=== PATIENT | male | born 1955 | race Caucasian/White ===

== ENCOUNTER → 2017-10-15 06:38 | Outpatient (CLI) | payer OTHER, SELFPAY ==
[2017-05-16 09:58] VITALS: BMI 30.9
[2017-10-15 07:34] LABS: AST(SGOT) 25 U/L (15-37); Alanine Aminotransfer ALT/SGPT 34 U/L (16-61); Albumin, Serum 3.4 g/dL (3.2-5.0); Alkaline Phosphatase 67 U/L (45-117); Bilirubin, Direct 0.13 mg/dL (0.00-0.30); Cholesterol 174 mg/dL (200); Globulin 3.8 g/dL (2.2-4.2); High Density Lipoprotein 44 mg/dL; Protein, Total 7.2 g/dL (6.4-8.2); Triglycerides 107 mg/dL; Very Low Density Lipoprotein 21 mg/dL (5-40)
== END ==
PROVIDERS: Family Provider Family Medicine; PCP Family Medicine; Visit Provider Nurse Practitioner Family
DX: E78.5 Hyperlipidemia, unspecified (principal); I10 Essential (primary) hypertension; I25.10 Atherosclerotic heart disease of native coronary artery without angina pectoris; I51.9 Heart disease, unspecified; J44.9 Chronic obstructive pulmonary disease, unspecified; Q21.1 Atrial septal defect; Z95.5 Presence of coronary angioplasty implant and graft
CPT/HCPCS: 36415; 80061; 80076

== ENCOUNTER → 2018-04-14 06:26 | Outpatient (CLI) | payer OTHER, SELFPAY ==
[2017-05-16 09:58] VITALS: BMI 30.9
--- NOTE | 2018-04-14 13:24 | STRESSREP ---
Stress Test Report Date: 2017 Procedure: Pharmacologic stress nuclear imaging study Indications: Shortness of breath/dyspnea on exertion: CAD; PCI Consent: Per the patient Procedure: The patient underwent pharmacologic (Regadenoson) evaluation with a peak heart rate of 85 beats per minute (54 predicted maximal heart rate) and a peak blood pressure of 132/86 mmHg. The baseline ECG demonstrated sinus bradycardia; nonspecific T-wave abnormality. The peak pharmacologic ECG demonstrated continued nonspecific T-wave abnormality. There were occasional PVCs pretest and during recovery. There was no complaint of chest discomfort during pharmacologic infusion or recovery. The examination was discontinued secondary to completion of protocol. Impression: 1. Pharmacologic (Regadenoson) evaluation 2. Peak pharmacologic ECG with continued nonspecific T-wave abnormality. 3. Were occasional PVCs pretest and during recovery 4. Nuclear images pending Myocardial perfusion imaging study: Technique: The patient was injected with 14.6 millicuries of technetium 99m Cardiolite and subsequently rest SPECT Cardiolite nuclear imaging was obtained in the horizontal long, vertical long, and short axis views. The patient underwent pharmacologic (Regadenoson) evaluation with a peak heart rate of 85 beats per minute (54 % percent predicted maximal heart rate) and a peak blood pressure of 132/86 mmHg. The patient was injected with 44.8 millicuries of technetium 99m Cardiolite and subsequently stress SPECT Cardiolite nuclear imaging was obtained in the horizontal long, vertical long, and short axis views. A gated Cardiolite study at peak stress was obtained. Interpretation: Rest and stress SPECT Cardiolite nuclear imaging status post realignment, normalization, and attenuation correction demonstrate relative uniform tracer uptake and myocardial perfusion appearing within normal limits. There is end systolic thickening and brightening. The gated Cardiolite study demonstrates myocardial thickening and inward wall motion. The reported LVEF is 56 %. Impression: 1. Rest and stress SPECT Cardiolite nuclear imaging demonstrate relative uniform tracer uptake and myocardial perfusion appearing within normal limits. 2. The gated Cardiolite study reports an LVEF of 56 %. This note was generated with [employer] software. It may contain incorrect words, spelling, and punctuation that were not noted in checking the note before signing.
== END ==
PROVIDERS: Family Provider Family Medicine; PCP Family Medicine; Visit Provider Internal Medicine Cardiovascular Disease
DX: R06.02 Shortness of breath (principal); Z95.5 Presence of coronary angioplasty implant and graft
CPT/HCPCS: 78452; 93017; A9500; A4216; J2785

== ENCOUNTER → 2018-04-23 09:32 | Outpatient (CLI) | payer OTHER, SELFPAY ==
[2017-05-16 09:58] VITALS: BMI 30.9
== END ==
PROVIDERS: Family Provider Family Medicine; PCP Family Medicine; Visit Provider Nurse Practitioner Acute Care
DX: K21.9 Gastro-esophageal reflux disease without esophagitis (principal)
CPT/HCPCS: 87070; 87077; 87205

== ENCOUNTER → 2018-07-31 06:57 | Outpatient (CLI) | payer OTHER, SELFPAY ==
[2017-05-16 09:58] VITALS: BMI 30.9
--- NOTE | 2018-07-31 15:12 | PFTCOMP_ITS ---
COMPLETE PULMONARY FUNCTION TEST INTERPRETATION Brief HPI: Patient is a 63 year old male, currently under the care of myself, who presents to [facility] for complete pulmonary function tests secondary to diagnosis of asthma. Respiratory therapist reports good effort and reproducible results. Interpretation: Forced expiration spirometry shows a mild large airways obstructive ventilatory defect with an FEV1 of 87% predicted. There is a significant bronchodilator response in FEV1 by strict ATS criteria. Spirograms are of good quality and plateau slowly, indicating slowly emptying areas of the lungs. The respiratory flow volume loop shows decreased expiratory flow rates at high lung volumes consistent with small airways obstruction. Lung volumes by body plethysmography show a decreased total lung capacity at 5.67 L, 78% predicted. All other lung volumes are reduced symmetrically. Diffusion capacity by carbon monoxide is normal at 101% predicted. The airway resistance is normal. Compared to previous pulmonary function tests from 06/03/2017, there has been a significant improvement in FEV1 and DLCO. Impression: Partially reversible mild mixed ventilatory defect with significant improvement compared to previous
--- OUTSIDE RECORDS SUMMARY | 2018-09-15 18:40 | XMS RPT_ITS ---
:1955 Author Organization OHIP Support Name Relationship Address Phone R Unavailable Unavailable Unavailable MARCUS HOWARD Unavailable [address] + [place] [address] R Unavailable Unavailable Unavailable MARCUS HOWARD Unavailable [address] + [place] [address] R Unavailable Unavailable Unavailable MARCUS HOWARD Unavailable [address] + [place] [address] R Unavailable Unavailable Unavailable MARCUS HOWARD Unavailable [address] + [place] [address] R Unavailable Unavailable Unavailable MARCUS HOWARD Unavailable [address] + [place] [address] R Unavailable Unavailable Unavailable MARCUS HOWARD Unavailable [address] + [place] [address] R Unavailable Unavailable Unavailable MARCUS HOWARD Unavailable [address] + [place] [address] R Unavailable Unavailable Unavailable MARCUS HOWARD Unavailable [address] + [place] [address] R Unavailable Unavailable Unavailable MARCUS HOWARD Unavailable [address] + [place] [address] R Unavailable Unavailable Unavailable MARCUS HOWARD Unavailable [address] + [place] [address] R Unavailable Unavailable Unavailable MARCUS HOWARD Unavailable [address] + [place] [address] R Unavailable Unavailable Unavailable MARCUS HOWARD Unavailable [address] + [place] [address] R Unavailable Unavailable Unavailable MARCUS HOWARD Unavailable [address] + [place] [address] R Unavailable Unavailable Unavailable MARCUS HOWARD Unavailable [address] + [place] [address] R Unavailable Unavailable Unavailable MARCUS HOWARD Unavailable [address] [phone] [place] [address] R Unavailable Unavailable Unavailable MARCUS HOWARD Unavailable [address] [phone] [place] [address] R Unavailable Unavailable Unavailable MARCUS HOWARD Unavailable [address] [phone] [place] [address] R Unavailable Unavailable Unavailable MARCUS HOWARD Unavailable [address] [phone] [place] [address] R Unavailable Unavailable Unavailable MARCUS HOWARD Unavailable [address] [phone] [place] [address] Care Team Providers Name Role Phone VILMA SNOW) Attending Unavailable VILMA SNOW) Attending Unavailable VILMA SNOW) Referring Unavailable VILMA SNOW) Attending Unavailable VILMA SNOW) Referring Unavailable OVI BUTCHER) Referring Unavailable OVI BUTCHER) Attending Unavailable VILMA SNOW) Referring Unavailable VILMA SNOW) Referring Unavailable VILMA SNOW) Attending Unavailable VILMA SNOW) Referring Unavailable VILMA SNOW) Referring Unavailable VILMA SNOW) Attending Unavailable YOUSUF JEWELL Referring Unavailable BEST YOUSUF Admitting Unavailable YOUSUF JEWELL Attending Unavailable Stewart Pearl Attending Unavailable Stewart Pearl Referring Unavailable Gisel Zelaya Attending Unavailable Elmo Snow Referring Unavailable Robby Rudd Attending Unavailable Yoan Leal Attending Unavailable Yoan Leal Attending Unavailable Elmo Snow Primary Care Unavailable Kings Snowe Primary Care Unavailable Altagracia Ace Attending Unavailable Stewart Pearl Attending Unavailable Elmo Snow Referring Unavailable Yoan Leal Attending Unavailable Bursley, Elmo Referring Unavailable Bursley, Elmo Primary Care Unavailable Lydia Albarado Attending Unavailable Moodispaw, Marvin Attending Unavailable Bursley, Elmo Referring Unavailable Bursley, Elmo Primary Care Unavailable Moodisnettie, Marvin Attending Unavailable Moodispaarun, Marvin Referring Unavailable Bursley, Elmo Primary Care Unavailable Zelaya, Gisel Attending Unavailable Bursley, Elmo Referring Unavailable Zelaya, Gisel Attending Unavailable Bursley, Elmo Referring Unavailable Zelaya, Gisel Attending Unavailable Zelaya, Gisel Referring Unavailable Bursley, Elmo Primary Care Unavailable Gabe Arenas Attending Unavailable Zelaya, Gisel Referring Unavailable Bursley, Elmo Primary Care Unavailable Moodispaarun, Marvin Attending Unavailable Moodisnettie, Marvin Referring Unavailable Dae, Stewart Attending Unavailable Bursley, Elmo Referring Unavailable Dae, Stewart Attending Unavailable Dae, Stewart Referring Unavailable Bursley, Elmo Primary Care Unavailable Dae, Stewart Attending Unavailable Dae, Stewart Referring Unavailable Bursley, Elmo Primary Care Unavailable PROBLEMS PROBLEMS DATE TYPE CONDITION / CODE ATTENDING STATUS SOURCE 08/07/2018 Unknown J45.909 - Stewart Pearl Active [place] Unspecified asthma, Community uncomplicated / Hospital J45.909(ICD-10) Repository 07/22/2018 Unknown R93.89 - Abnormal Stewart Pearl Active [place] findings on [facility] diagnostic imaging Hospital of other specified Repository body structures / R93.89(ICD-10) 06/22/2018 Active Other microscopic NA Active [facility] hematuria / [place] R31.29(ICD-10) Repository 04/23/2018 Unknown K21.9 - Garcia Active [place] Gastro-esophageal [facility] reflux disease Hospital without esophagitis Repository / K21.9(ICD-10) 05/11/2018 Unknown R06.02 - Shortness Marvin Llanos Active [place] of breath / Community R06.02(ICD-10) Hospital Repository 04/06/2018 Active Encounter for NA Active [facility] screening for [place] malignant neoplasm Repository of colon / Z12.11(ICD-10) 04/06/2018 Unknown Z95.5 - Presence of Marvin Llanos Active [place] coronary Community angioplasty implant Hospital and graft / Repository Z95.5(ICD-10) 05/26/2013 Active Malignant neoplasm NA Active [facility] of prostate / [place] C61(ICD-10) Repository 12/08/2017 Active Other mcfp NA Active [facility] (current) drug [facility] therapy / Repository Z79.899(ICD-10) 09/08/2017 Active Shortness of breath NA Active [facility] / R06.02(ICD-10) Other [place] Repository 09/08/2017 Active Cough / R05(ICD-10) NA Active [facility] Repository PROCEDURES PROCEDURES No Procedure Records FoundRESULTS RESULTS CNOV Observed: 09/02/2018 Status: COMPLETED Source: [place] 10:40 AM [facility] REPOSITORY Office Visit (FAMPWS) MACI HOWARD ([id number]) 1955 M Date Time Provider Department 09/02/18 10:40 AM VILMA SNOW) FAMPWS During your visit today, we recorded the following information about you: Pulse Respiration Blood pressure Weight 60/minute 12/minute 116/84 100.2 kg Vilma Snow MD 09/02/2018 12:03 PM Signed Chief Complaint No chief complaint on file. HPI Maci Howard is a 63 year old male who presents here today for ER follow up. Patient presented to [facility] ED on 09/01 for complaint of 2 hour history of lower chest and upper abdominal pain described as burning sensation over epigastrium. Similar episode 2-3 days before which improved after vomiting. Workup included EKG: sinus bradycardia at 47 bpm with single PVC, normal CXR, CBC with elevated HGB of 17, chem/LFT/lipase normal, normal troponin. Given ASA, morphine, zofran, and pepcid which resolved epigastric pain .repeated 3 hour EKG due to history of CAD and was again negative. Advised to double omeprazole to 40 mg at dinner time and discharged home. Advised to follow up with our office to discuss US of gallbladder. Since discharge, symptoms have resolved. Taking pantoprazole as recommended at 40 mg at dinner. Denies recurrent chest pain, SOB, leg swelling, orthopnea. Has been working on eating healthier diet. Down 20 lbs since last OV. Past medical history, appointments, medications, allergies reviewed. Previous Medical History PAST MEDICAL HISTORY Diagnosis Date - Anxiety - Asthma Childhood. 10/2017 bronchoscopy/biopsy with inflammation, eosinophils. - CAD (coronary artery disease) s/p SHANIQUA to [facility], seeing Dr. Llanos - Depression - Diaphragmatic hernia without mention of obstruction or gangrene - Dyslipidemia - Dysphagia - Dyspnea With wheezing. Spirometry w/o obstruction 02/01 and 06/03. Dr. Jewell 08/2017. Has seen Dr. Pearl - Esophagitis, unspecified - GERD (gastroesophageal reflux disease) - History of CVA (cerebrovascular accident) 06/20/2014 mild - Obesity (BMI 30.0-34.9) - LESLY (obstructive sleep apnea) Consistently compliant with CPAP. - PFO (patent foramen ovale) - Prostate cancer (HCC) 2012 s/p prostatectomy, [place] Previous Surgical History PAST SURGICAL HISTORY Procedure Laterality Date - EGD W/O OR W/BRUSH/WASH 05/01/2007 EGD - EGD W/O OR W/BRUSH/WASH 03/21/2013 [facility] EGD - PAST SURGICAL HISTORY OF submandibular gland removed - PAST SURGICAL HISTORY OF 10/31/14 Robotic Prostatectomy - PAST SURGICAL HISTORY OF 04/2017 SH[facility]QUA to [facility] - PAST SURGICAL HISTORY OF 06/2017 sinus surgery Family History FAMILY HISTORY Problem Relation Age of Onset - Heart Mother CAD. - Hypertension Mother - Cancer Father Prostate cancer. - other (Other) Father Lower lobectomy, not cancerous. - Cancer Paternal Grandfather Prostate Cancer. - other (Other) Other No allergy, asthma, COPD. Patient Allergies ALLERGIES Allergen Reactions - Lourdes Palomo Dsc [* Current Medications Current Outpatient Prescriptions on File Prior to Visit: fluticasone (FLONASE) 50 mcg/actuation nasal spray Use 2 Sprays in each nostril once daily. Rinse mouth after use. budesonide-formoterol (SYMBICORT) 160-4.5 mcg/actuation inhaler Inhale 2 Puffs as instructed twice daily. clopidogrel (PLAVIX) 75 mg tablet TAKE 1 TABLET ONCE DAILY atorvastatin (LIPITOR) 20 mg tablet TAKE [address] (PROTONIX) 20 mg tablet TAKE 1 TABLET DAILY BEFORE BREAKFAST. TAKE ON AN EMPTYSTOMACH, 1/2 HOUR BEFORE A MEAL. losartan (COZAAR) 25 mg tablet Take 0.5 tablets by mouth once daily. montelukast (SINGULAIR) 10 mg tablet Take 1 tablet by mouth daily at bedtime. NITROGLYCERIN SUBLINGUAL Dissolve under the tongue as needed. CPAP atorvastatin (LIPITOR) 20 mg tablet TAKE 1 TABLET DAILY Albuterol Sulfate 0.63 mg/3 mL nebulizer solution Inhale contents of 1 vial in nebulizer every 4 hours as needed for wheezing albuterol HFA (VENTOLIN HFA) 90 mcg/actuation inhaler Inhale 2 Puffs as instructed every 4 hours as needed. metoprolol succinate ER (TOPROL XL) 25 mg 24 hr tablet Take 1 tablet by mouth once daily. (Patient taking differently: Take 25 mg by mouth once daily. Taking 12.5mg daily ) aspirin 81 mg chewable tablet Take 81 mg by mouth once daily. No current facility-administered medications on file prior to visit. 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 Social History Main Topics Smoking status: Former Smoker Packs/day: 1.00 Years: 20.00 Types: Cigarettes Quit date: 08/18/1989 Smokeless tobacco: Former User Types: Snuff Quit date: 01/16/2017 Alcohol use: Yes 4.5 oz/week Cans of Beer (12oz): 3 per week Comment: rare-beer Drug use: No Sexual activity: Yes Partners with: Female control/protection: Vasectomy Social History Narrative [place]. 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 Window A/C. No pets in home. Prior owners had cats. Air purifier in LR. Review of Symptoms REVIEW OF SYSTEMS GENERAL: No weight loss, malaise or fevers RESPIRATORY: Negative for cough, hemoptysis, wheezing, COPD, dyspnea or shortness of breath CARDIOVASCULAR: Negative for chest pain, leg swelling, hypertension, CHF or palpitations GI: No nausea, vomiting, or diarrhea SKIN: Negative for lesions, rash, and itching EXAM: BP 116/84 Pulse 60 Resp 12 Wt 100.2 kg (221 lb) BMI 29.16 kg/m? General Appearance: Well appearing, alert, in no acute distress, well-hydrated, well nourished.. Skin: Skin color, texture, turgor normal, no suspicious rashes or lesions. Lungs: lungs clear to auscultation. No wheezing, rhonchi, rales. Heart: RRR without murmur, gallop, or rubs. No ectopy. Abdomen: Abdomen soft. Bowel sounds normal. No masses, organomegaly, Positive findings: tenderness mild epigastric. Negative murphys sign. Health Maintenance List BP CONTROLLED (<130/80) due on 1972 STATIN MED ADHERENCE due on 09/18/2018 STEROID INHALER PRESCRIBED due on 09/18/2018 STEROID INHALER ADHERENCE due on 09/18/2018 LDL CHOLESTEROL due on 12/08/2018 FECAL OCCULT BLOOD due on 04/06/2019 ANNUAL PCP TEAM CHRONIC DISEASE VISIT due on 06/12/2019 DIABETES SCREEN due on 06/22/2021 LIPID SCREEN due on 12/08/2022 PROSTATE CANCER SCREENING DISCUSSION due on 02/23/2023 DTAP,TDAP,TD(4 - Td) due on 12/11/2027 INFLUENZA Completed HEPATITIS C SCREENING Completed ASSESSMENT/PLAN: 1. Chest pain, unspecified type - ICD9: 786.50, ICD10: R07.9 (primary diagnosis) Negative cardiac workup. Symptoms resolved with PPI treatment. Likely radicular pain from epigastric pain/gastritis. 2. Epigastric pain - ICD9: 789.06, ICD10: R10.13 Improved. Continue pantoprazole 40 mg at night, bland diet, call with recurrent symptoms. 3. Hospital discharge follow-up - ICD9: V67.59, ICD10: Z09 See above. Vilma Snow MD Referring Provider: SELF [[id number]] Allergies As of Date: 09/02/2018 Noted Allergy Reaction PARAFON FORTSolomon DSC (CHLORZOXAZONE) 03/11/2006 Date Reviewed: 09/02/2018 Reviewed by: Peter Armando Ma - Fully Assessed Reason for Visit: Hospital Follow Up [177] Cmt: abdominal pain omeprazole/bid per pt. Reason For Visit History Recorded Primary Visit Diagnosis:Chest pain, unspecified type [R07.9] Other Visit Diagnoses:Epigastric pain [R10.13] Hospital discharge follow-up [Z09] Prescriptions as of 09/02/2018 Sig: BREONESIN ORAL Take by mouth. FLUTICASONE 50 MCG/ACTUATION * Use 2 Sprays in each nostril * BUDESONIDE-FORMOTEROL HFA 160* Inhale 2 Puffs as instructed * CLOPIDOGREL 75 MG TABLET TAKE 1 TABLET ONCE DAILY PANTOPRAZOLE 20 MG TABLET,DEL* TAKE 1 TABLET DAILY BEFORE BR* LOSARTAN 25 MG TABLET Take 0.5 tablets by mouth onc* MONTELUKAST 10 MG TABLET Take 1 tablet by mouth daily * NITROGLYCERIN SUBLINGUAL Dissolve under the tongue as* CPAP ATORVASTATIN 20 MG TABLET TAKE 1 TABLET DAILY ALBUTEROL SULFATE 0.63 MG/3 M* Inhale contents of 1 vial in * ALBUTEROL SULFATE HFA 90 MCG/* Inhale 2 Puffs as instructed * METOPROLOL SUCCINATE ER 25 MG* Take 1 tablet by mouth once d* Patient taking differently: Take 25 mg by mouth once jose maria* ASPIRIN 81 MG CHEWABLE TABLET Take 81 mg by mouth once jose maria* FLUTICASONE 200 MCG-VILANTERO* Breo Ellipta 200 mcg-25 mcg/d* ATORVASTATIN 20 MG TABLET TAKE 1 TABLET DAILY Problem List As Of Date 09/02/2018 Noted Resolved DYSPHAGIA [787.2] Esophagitis, unspecified [K20.9] INVALID FOR* More... DIAPHRAGMATIC HERNIA [K44.9] INVALID FOR* FAMILY HX PROSTATIC MALIGNANCY [Z80.42] INVALID FOR* Elevated prostate specific antigen (PSA) [R97.2*INVALID FOR* More... Other and unspecified hyperlipidemia [E78.5] INVALID FOR*12/10/2017 More... Prostate cancer [C61] INVALID FOR* HLD (hyperlipidemia) [E78.5] INVALID FOR* GERD (gastroesophageal reflux disease) [K21.9] INVALID FOR* Hypertensive cardiovascular disease [I11.9] INVALID FOR* Stroke (HCC) [I63.9] INVALID FOR* Chronic anticoagulation [Z79.01] INVALID FOR*09/10/2017 Sleep apnea [G47.30] INVALID FOR*06/02/2017 PFO (patent foramen ovale) [Q21.1] INVALID FOR* LESLY on CPAP [G47.33, Z99.89] INVALID FOR* Cerebrovascular accident (CVA) due to embolism *INVALID FOR* LESLY (obstructive sleep apnea) [G47.33] 06/02/2017 More... History of CVA (cerebrovascular accident) [Z86.*INVALID FOR* More... CAD (coronary artery disease) [I25.10] More... Cough [R05] INVALID FOR*12/10/2017 SOB (shortness of breath) [R06.02] INVALID FOR* Wheezing [R06.2] INVALID FOR*12/10/2017 Depression [F32.9] Medications Discontinued During This Encounter pantoprazole DR (PROTONIX) 20 mg tab* 09/02/2018 Class: Historical Med Sig: pantoprazole 20 mg tablet,delayed release Disc: Duplicate Entry Disposition: Return if symptoms worsen or fail to improve. Follow-up and Disposition History Recorded Encounter Status:Closed by VILMA SNOW MD on 09/02/18 PROGRESS Observed: 09/02/2018 Status: COMPLETED Source: [place] 10:31 AM [facility] REPOSITORY HNO ID: [id number] Author: Vilma Espinoza) Gwendolyn Service: (none) Author Type: Physician Type: Progress Notes Filed: 09/02/2018 12:03 PM Note Text: Chief Complaint No chief complaint on file. HPI Maci Howard is a 63 year old male who presents here today for ER follow up. Patient presented to [facility] ED on 09/01 for complaint of 2 hour history of lower chest and upper abdominal pain described as burning sensation over epigastrium. Similar episode 2-3 days before which improved after vomiting. Workup included EKG: sinus bradycardia at 47 bpm with single PVC, normal CXR, CBC with elevated HGB of 17, chem/LFT/lipase normal, normal troponin. Given ASA, morphine, zofran, and pepcid which resolved epigastric pain .repeated 3 hour EKG due to history of CAD and was again negative. Advised to double omeprazole to 40 mg at dinner time and discharged home. Advised to follow up with our office to discuss US of gallbladder. Since discharge, symptoms have resolved. Taking pantoprazole as recommended at 40 mg at dinner. Denies recurrent chest pain, SOB, leg swelling, orthopnea. Has been working on eating healthier diet. Down 20 lbs since last OV. Past medical history, appointments, medications, allergies reviewed. Previous Medical History PAST MEDICAL HISTORY Diagnosis Date - Anxiety - Asthma Childhood. 10/2017 bronchoscopy/biopsy with inflammation, eosinophils. - CAD (coronary artery disease) s/p SHANIQUA to [facility], seeing Dr. Llanos - Depression - Diaphragmatic hernia without mention of obstruction or gangrene - Dyslipidemia - Dysphagia - Dyspnea With wheezing. Spirometry w/o obstruction 02/01 and 06/03. Dr. Jewell 08/2017. Has seen Dr. Pearl - Esophagitis, unspecified - GERD (gastroesophageal reflux disease) - History of CVA (cerebrovascular accident) 06/20/2014 mild - Obesity (BMI 30.0-34.9) - LESLY (obstructive sleep apnea) Consistently compliant with CPAP. - PFO (patent foramen ovale) - Prostate cancer (HCC) 2012 s/p prostatectomy, [place] Previous Surgical History PAST SURGICAL HISTORY Procedure Laterality Date - EGD W/O OR W/BRUSH/WASH 05/01/2007 EGD - EGD W/O OR W/BRUSH/WASH 03/21/2013 [facility] EGD - PAST SURGICAL HISTORY OF submandibular gland removed - PAST SURGICAL HISTORY OF 10/31/14 Robotic Prostatectomy - PAST SURGICAL HISTORY OF 04/2017 SHANIQUA to [facility] - PAST SURGICAL HISTORY OF 06/2017 sinus surgery Family History FAMILY HISTORY Problem Relation Age of Onset - Heart Mother CAD. - Hypertension Mother - Cancer Father Prostate cancer. - other (Other) Father Lower lobectomy, not cancerous. - Cancer Paternal Grandfather Prostate Cancer. - other (Other) Other No allergy, asthma, COPD. Patient Allergies ALLERGIES Allergen Reactions - Lourdes Palomo Dsc [* Current Medications Current Outpatient Prescriptions on File Prior to Visit: fluticasone (FLONASE) 50 mcg/actuation nasal spray Use 2 Sprays in each nostril once daily. Rinse mouth after use. budesonide-formoterol (SYMBICORT) 160-4.5 mcg/actuation inhaler Inhale 2 Puffs as instructed twice daily. clopidogrel (PLAVIX) 75 mg tablet TAKE 1 TABLET ONCE DAILY atorvastatin (LIPITOR) 20 mg tablet TAKE [address] (PROTONIX) 20 mg tablet TAKE 1 TABLET DAILY BEFORE BREAKFAST. TAKE ON AN EMPTYSTOMACH, 1/2 HOUR BEFORE A MEAL. losartan (COZAAR) 25 mg tablet Take 0.5 tablets by mouth once daily. montelukast (SINGULAIR) 10 mg tablet Take 1 tablet by mouth daily at bedtime. NITROGLYCERIN SUBLINGUAL Dissolve under the tongue as needed. CPAP atorvastatin (LIPITOR) 20 mg tablet TAKE 1 TABLET DAILY Albuterol Sulfate 0.63 mg/3 mL nebulizer solution Inhale contents of 1 vial in nebulizer every 4 hours as needed for wheezing albuterol HFA (VENTOLIN HFA) 90 mcg/actuation inhaler Inhale 2 Puffs as instructed every 4 hours as needed. metoprolol succinate ER (TOPROL XL) 25 mg 24 hr tablet Take 1 tablet by mouth once daily. (Patient taking differently: Take 25 mg by mouth once daily. Taking 12.5mg daily ) aspirin 81 mg chewable tablet Take 81 mg by mouth once daily. No current facility-administered medications on file prior to visit. 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 Social History Main Topics Smoking status: Former Smoker Packs/day: 1.00 Years: 20.00 Types: Cigarettes Quit date: 08/18/1989 Smokeless tobacco: Former User Types: Snuff Quit date: 01/16/2017 Alcohol use: Yes 4.5 oz/week Cans of Beer (12oz): 3 per week Comment: rare-beer Drug use: No Sexual activity: Yes Partners with: Female control/protection: Vasectomy Social History Narrative [place]. 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 Window A/C. No pets in home. Prior owners had cats. Air purifier in LR. Review of Symptoms REVIEW OF SYSTEMS GENERAL: No weight loss, malaise or fevers RESPIRATORY: Negative for cough, hemoptysis, wheezing, COPD, dyspnea or shortness of breath CARDIOVASCULAR: Negative for chest pain, leg swelling, hypertension, CHF or palpitations GI: No nausea, vomiting, or diarrhea SKIN: Negative for lesions, rash, and itching EXAM: BP 116/84 Pulse 60 Resp 12 Wt 100.2 kg (221 lb) BMI 29.16 kg/m? General Appearance: Well appearing, alert, in no acute distress, well-hydrated, well nourished.. Skin: Skin color, texture, turgor normal, no suspicious rashes or lesions. Lungs: lungs clear to auscultation. No wheezing, rhonchi, rales. Heart: RRR without murmur, gallop, or rubs. No ectopy. Abdomen: Abdomen soft. Bowel sounds normal. No masses, organomegaly, Positive findings: tenderness mild epigastric. Negative murphys sign. Health Maintenance List BP CONTROLLED (<130/80) due on 1972 STATIN MED ADHERENCE due on 09/18/2018 STEROID INHALER PRESCRIBED due on 09/18/2018 STEROID INHALER ADHERENCE due on 09/18/2018 LDL CHOLESTEROL due on 12/08/2018 FECAL OCCULT BLOOD due on 04/06/2019 ANNUAL PCP TEAM CHRONIC DISEASE VISIT due on 06/12/2019 DIABETES SCREEN due on 06/22/2021 LIPID SCREEN due on 12/08/2022 PROSTATE CANCER SCREENING DISCUSSION due on 02/23/2023 DTAP,TDAP,TD(4 - Td) due on 12/11/2027 INFLUENZA Completed HEPATITIS C SCREENING Completed ASSESSMENT/PLAN: 1. Chest pain, unspecified type - ICD9: 786.50, ICD10: R07.9 (primary diagnosis) Negative cardiac workup. Symptoms resolved with PPI treatment. Likely radicular pain from epigastric pain/gastritis. 2. Epigastric pain - ICD9: 789.06, ICD10: R10.13 Improved. Continue pantoprazole 40 mg at night, bland diet, call with recurrent symptoms. 3. Hospital discharge follow-up - ICD9: V67.59, ICD10: Z09 See above. Vilma Snow MD 12 LEAD ELECTROCARDIOGRAM Observed: 09/01/2018 Status: F Source: [place] 5:17 PM [facility] Cardiovascular Services [address] [place] [id number] Lead EKG 09/01/18 0423 MR#: [id number] Acct: [id number] Name: MACI HOWARD Rep #: [id number] : 1955 63 From: Eliseo Borja MD Attending Dr: Status: DEP ER Ordering Dr: Altagracia Ace MD Date: 09/01/18 Location: ED Sex: M C Admitted: Test Reason : REPEAT Blood Pressure : / mmHG Vent. Rate : 052 BPM Atrial Rate : 052 BPM P-R Int : 216 ms QRS Dur : 088 ms QT Int : 448 ms P-R-T Axes : 029 011 003 degrees QTc Int : 416 ms Sinus bradycardia with sinus arrhythmia with 1st degree A- V block with occasional Premature ventricular complexes Otherwise normal ECG Confirmed by ELISEO BORJA MD ([id number]), production editor GARRY REID ([id number]) on 09/01/2018 5:16:40 PM Referred By: GERARD Confirmed By:ELISEO BORJA MD 09/01/181715 Date Eliseo Borja MD CC: Elmo Snow MD; Altagracia Ace MD Signed 12 LEAD ELECTROCARDIOGRAM Observed: 09/01/2018 Status: F Source: [place] 5:17 PM [facility] Cardiovascular Services [address] [place] [place] [id number] 12 Lead EKG 09/01/18 0116 MR#: [id number] Acct: [id number] Name: MACI HOWARD Chidi Rep #: [id number] : 1955 63 From: Eliseo Borja MD Attending Dr: Status: DEP ER Ordering Dr: Altagracia Ace MD Date: 09/01/18 Location: ED Sex: M C Admitted: Test Reason : CP Blood Pressure : / mmHG Vent. Rate : 047 BPM Atrial Rate : 047 BPM P-R Int : 200 ms QRS Dur : 094 ms QT Int : 452 ms P-R-T Axes : 040 034 037 degrees QTc Int : 400 ms Sinus bradycardia with occasional Premature ventricular complexes Possible Left atrial enlargement Borderline ECG Confirmed by ELISEO BORJA MD ([id number]), production editor GARRY REID ([id number]) on 09/01/2018 5:16:54 PM Referred By: GERARD Confirmed By:ELISEO BORJA MD 09/01/181715 Date Eliseo Borja MD CC: Elmo Snow MD; Altagracia Ace MD Signed EMERGENCY DEPARTMENT Observed: 09/01/2018 Status: F Source: [place] SUMMARY 5:46 AM [facility] Medical Records Department [address] [place] [address] Emergency Department Summary 09/01/18 0151 MR#: [id number] Acct: [id number] Name: MACI HOWARD Rep #: [id number] : 1955 63 From: Altagracia Ace MD PCP: Elmo Snow MD Status: DEP ER - ER Visit Summary Date of Service: 09/01/18 Chief Complaint: Chest and abdominal pain History of Present Illness: The patient is a 63 M with a 2- hour history of lower chest and upper abdominal pain. He describes a burning and pressure sensation over the epigastrium. He reports nausea but no vomiting. He had a similar episode on the evening of August 29 lasted approximately 4 hours and improved only after he vomited. Patient does have history of coronary artery disease and does have cardiac stent. He has a history of reflux but states this pain does not feel like his reflux. Physical Examination: Blood pressure is 150/112, temperature 97.5, heart rate 43, respiratory rate 10, pulse ox 98% on room air. Patient sitting upright in bed. He appears uncomfortable but in no distress. Head neck examination unremarkable. Heart is bradycardic. Lungs sounds are clear. Chest wall is nontender. Abdomen is soft with focal tenderness in the epigastrium. No guarding or rebound. Hypoactive bowel sounds are noted throughout. Test Results: EKG is sinus bradycardia at 47 bpm with a single PVC. No acute ST change noted. Portable chest x-ray shows no acute disease. CBC was normal white count hemoglobin of 17.0. Chemistry studies unremarkable. LFTs and lipase normal. Troponin is less than 0.015. Emergency Department Course and Treatment: Patient was given aspirin, morphine, Zofran, and IV Pepcid. On repeat evaluation his pain is resolved. Patient's pain seems to be focal over the epigastrium. He does, however, have significant cardiac history. 3-hour repeat EKG continues to show no acute ischemia and repeat troponin remains less than 0.015. Patient is currently taking omeprazole 20 mg at dinnertime. I asked him to double it to 40 mg. He is also to follow-up with his primary care physician for abdominal ultrasound to evaluate his gallbladder. Of note, patient did have a recent CT scan of the chest with comment about unremarkable upper abdomen. When I reviewed the images the gallbladder is not fully seen on these images. Treatment Plan: [] Disposition: Discharge Impression: Epigastric pain This note was generated with Emu Messenger dictation software. It may contain incorrect words, spelling, and punctuation that were not noted in review of the chart prior to signing ED Disposition - Plan for ED Patient: Chief Complaint: Chest Pain Referrals: Elmo Snow MD [Primary Care Provider] - What to do if you have Problems For any increased pain, shortness of breath, bleeding, nausea or vomiting, chest pain, or any unexpected problems, contact your Primary Care Provider. Call [facility] ([phone]) or report to the closest Emergency Room. Call 911 if necessary. 09/01/18 0546 <Electronically signed by Altagracia Ace MD> Date Altagracia Ace MD Cosigner Signature (If Indicated): Date CC: Elmo Snow MD DISCHARGE INSTRUCTION Observed: 09/01/2018 Status: F Source: [place] 5:00 AM [facility] Medical Records Department [address] [place] [address] Discharge Instruction 09/01/18 0500 MR#: [id number] Acct: [id number] Name: MACI HOWARD Rep #: [id number] : 1955 63 From: Altagracia Ace MD PCP: Elmo Snow MD Status: REG ER ED Disposition - Plan for ED Patient: Disposition: Home or Assisted Living Chief Complaint: Chest Pain Instructions: ED Epigastric Pain [facility] Referrals: Elmo Snow MD [Primary Care Provider] - As soon as possible What to do if you have Problems For any increased pain, shortness of breath, bleeding, nausea or vomiting, chest pain, or any unexpected problems, contact your Primary Care Provider. Call [facility] ([phone]) or report to the closest Emergency Room. Call 911 if necessary. 09/01/18 0500 <Electronically signed by Altagracia Ace MD> Date Altagracia Ace MD Cosigner Signature (If Indicated): Date CC: Elmo Snow MD TROPONIN-I Collected: 09/01/2018 Status: F Source: [place] 4:22 AM [facility] TYPE CODE TESTS RESULT OUT OF RANGE REFERENCE UNITS LAB L501.4010 <0.045 ng/mL Normal < 0.015 TROPONIN-I Result Comment: TROPONIN-I EXPECTED VALUES <0.045 Negative 0.045 - 0.590 Consistent with Cardiac Damage > OR = 0.600 Critical Value Not every elevated troponin is indicative of [place]. These values should be used with clinical judgement in examining the patient's clinical picture for diagnosis. To establish a diagnosis of [place] versus myocardial injury, there must be a demonstrated rise and/or fall in the troponin values, in addition to ischemic symptoms, EKG changes, new regional wall motion abnormality, and/or angiographical evidence. PLEASE NOTE: REFERENCE RANGES EDITED 17 Performed By: #### L501.4010 #### [facility] [address] [place], [address] CHEST 1 VIEW Observed: 09/01/2018 Status: F Source: [place] (PORTABLE) 1:29 AM [facility] Imaging Services [address] [address] Chest 1 View (Portable) MR#: [id number] Acct: [id number] Name: MACI HOWARD Rep #: [id number] : 1955 M 63 From: Ishmael Rowan PCP: Elmo Snow MD Status: REG ER Study: Chest 1 View (Portable) Date of Exam: 09/01/18 Exam# [id number] Ordering Dr: Altagracia Ace MD STUDY: X-RAY CHEST REASON FOR EXAM: Male, 63 years old. Onset of chest pain 2 hours ago. TECHNIQUE: AP portable chest. COMPARISON: June 24, 2017. FINDINGS: The lungs are clear and expanded. There is no demonstrated pleural abnormality. Normal size heart. Normal mediastinum and berna. Normal visualized pulmonary arteries. Normal visualized aortic arch and descending thoracic aorta. Normal visualized thoracic spine. Normal visualized ribs, clavicles, and shoulders. There is no demonstrated abnormality of the visualized soft tissue structures of the upper abdomen. RAD/Chest 1 View (Portable) IMPRESSION: No acute cardiopulmonary disease. Electronically Signed: Ishmael Rowan MD at 1:50 EST , Service support , CC: Elmo Snow MD; Altagracia Ace MD Broadcast Transmitter Operator: Signed CBC W/DIFF, AUTOMATED Collected: 09/01/2018 Status: F Source: [place] 1:22 AM [facility] TYPE CODE TESTS RESULT OUT OF RANGE REFERENCE UNITS LAB L100.1000 4.4-11.0 K/mm3 Normal WBC 9.0 LAB L100.1200 4.6-6.2 M/mm3 Normal RBC 5.10 LAB L100.1300 13.0-16.5 g/dl High HGB 17.0 LAB L100.1400 40-54 % Normal HCT 48.2 LAB L100.1500 80-94 fL High MCV 94.5 LAB L100.1600 27.0-32.0 pg High MCH 33.3 LAB L100.1700 32-36 g/gl Normal MCHC 35.3 LAB L100.1810 11.6-14.6 % Normal RDW CV 13.8 LAB L100.1820 35.1-43.9 fl High RDW SD 46.6 LAB L100.1900 150-450 K/mm3 Normal PLT 186 LAB L100.2000 6.2-12.0 fl Normal MPV 9.1 LAB L100.2100 47-70 % Normal NEUT% 64.1 LAB L100.2200 19-41 % Normal LY% 19.1 LAB L100.2300 0-10 % High MONO% 12.3 LAB L100.2400 0-5 % Normal EO% 3.4 LAB L100.2500 0-1 % Normal BASO% 0.7 LAB L100.2550 0.0-0.9 % Normal IM GRAN % 0.400 Result Comment: IG% - Immature Granulocytes (promyelocytes, myelocytes and metamyelocytes) > 1% indicates that a LEFT SHIFT is Present. LAB L100.2620 2.0-7.7 X10 3/uL Normal Absolute Neut 5.8 LAB L100.2720 0.83-4.51 X10 3/ul Normal Absolute Lymph 1.72 Performed By: #### L100.0100 #### [facility] [address] [place], [address] BASIC METABOLIC Collected: 09/01/2018 Status: F Source: [place] PROFILE ([facility]) 1:22 AM [facility] TYPE CODE TESTS RESULT OUT OF RANGE REFERENCE UNITS LAB L501.0100 74-106 mg/dL Normal GLU 91 Result Comment: Please note revised GLUCOSE reference range effective 2017. LAB L501.1000 7-18 mg/dL High BUN 19 LAB L501.1100 0.70-1.30 mg/dL Normal CREAT,SERUM 1.01 Result Comment: The validity of the calculated GFR AND GFRAA in patients over 70 years has not been determined. Clinical correlation is essential. LAB L501.1110 >60 mL/min Normal EST GFR 79 Result Comment: Non- GFR Calc LAB L501.1115 >60 mL/min Normal EST GFR - AA 96 Result Comment: GFR Calc LAB L501.1255 ml/min Normal Estimated CRCL 83.50 LAB L501.1300 10-20 RATIO Normal BUN/CRE 18.8 LAB L501.2200 8.5-10 mg/dL Normal .1 CA 8.8 LAB L501.5300 136-14 mmol/L Normal 5 NA 141 LAB L501.5600 3.5-5. mmol/L Normal 1 K 4.5 LAB L501.5900 98-107 mmol/L High CL 110 LAB L501.6100 21.0-3 mmol/L Normal 2.0 CO2 24.0 LAB L501.6200 5-15 Normal GAP 7 Performed By: #### L500.2500, L500.3400, L501.2450, L501.4010 #### [facility] [address] [place], [place], [id number] LIVER PROFILE Collected: 09/01/2018 Status: F Source: [place] 1:22 AM [facility] TYPE CODE TESTS RESULT OUT OF RANGE REFERENCE UNITS LAB L501.1500 6.4-8.2 g/dL Normal T PROT 7.5 LAB L501.1800 3.2-5.0 g/dL Normal ALB 3.8 LAB L501.1950 2.2-4.2 g/dL Normal GLOB 3.7 LAB L501.4100 15-37 U/L Normal AST 30 LAB L501.4305 45-117 U/L Normal ALK P 107 LAB L501.4405 16-61 U/L Normal ALT 26 LAB L501.4600 0.20-1.00 mg/dL Normal T BILI 0.70 LAB L501.4700 0.00-0.30 mg/dL Normal D BILI 0.12 Performed By: #### L500.2500, L500.3400, L501.2450, L501.4010 #### [facility] [address] [place], [place], [id number] LIPASE Collected: 09/01/2018 Status: F Source: [place] 1:22 [facility] TYPE CODE TESTS RESULT OUT OF RANGE REFERENCE UNITS LAB L501.2450 73-393 U/L Normal LIPASE 117 Performed By: #### L500.2500, L500.3400, L501.2450, L501.4010 #### [facility] [address] [place], [address] TROPONIN-I Collected: 09/01/2018 Status: F Source: [place] 1:22 AM [facility] TYPE CODE TESTS RESULT OUT OF RANGE REFERENCE UNITS LAB L501.4010 <0.045 ng/mL Normal < 0.015 TROPONIN-I Result Comment: TROPONIN-I EXPECTED VALUES <0.045 Negative 0.045 - 0.590 Consistent with Cardiac Damage > OR = 0.600 Critical Value Not every elevated troponin is indicative of [place]. These values should be used with clinical judgement in examining the patient's clinical picture for diagnosis. To establish a diagnosis of [place] versus myocardial injury, there must be a demonstrated rise and/or fall in the troponin values, in addition to ischemic symptoms, EKG changes, new regional wall motion abnormality, and/or angiographical evidence. PLEASE NOTE: REFERENCE RANGES EDITED 17 Performed By: #### L500.2500, L500.3400, L501.2450, L501.4010 #### [facility] [address] [place], [address] PULMONARY VISIT REPORT Observed: 08/24/2018 Status: F Source: [place] 12:22 PM [facility] [place] [facility] [address] [place] [address] OFFICE VISIT Date of Service: 08/24/18 MR#: [id number] Acct: [id number] Name: MACI HOWARD Rep #: [id number] : 1955 Provider: Gisel Zelaya Age/Sex: 63/M Location: [facility] Status: Signed with Addenda ADDENDUM by Gisel Zelaya on 08/24/18 at 1222 Addendum entered and electronically signed by JANE Echols 08/24/18 12:22: This patient presents the office today to follow-up on his obstructive sleep apnea, asthma/COPD overlap syndrome. He is ambulatory and currently in room air. He has not been seen in the ED or urgent care for respiratory illnesses since his last office visit. He has just recently completed 45 days of Bactrim therapy prescribed by his ENT. He reports that overall he is feeling significantly improved. He has not needed to use his rescue inhaler in several weeks. He is compliant with Brio daily. He reports rinsing his mouth out after each use. He denies any medication side effects such as sore throat or thrush. He is shortness of breath on exertion has decreased, some of this he attributes to his recent weight loss. He is unsure of total weight loss but it is proximally around 25 pounds. He has been more physically active, he has been watching his diet. He continues to experience a daily cough that is productive of clear to white sputum. He denies any hemoptysis. He denies any wheezing, chest tightness, chest pain or palpitations. He denies any fever, chills or body aches. He does feel rested when awakening in the morning, denies any difficulties with Pap therapy. He is not having nocturia, denies any dry mouth but does experience frequent mask leaks. He knows that he is due for a new interface and will follow up with this in the near future. Assessment AND Plan 1. LESLY (obstructive sleep apnea) G47.33 JANE Mortensen Patient is using and benefiting from Pap therapy. No indication for titration study at this time. Continue to encourage weight loss. Contact the office for any new or worsening symptoms in the meantime. Follow-up as previously scheduled 2. Asthma-COPD overlap syndrome J44.9 JANE Mortensen Does not appear to be an exacerbation of asthma/COPD today. No need for prednisone or antibiotic. Continue current maintenance medication. No additional testing at this time. Contact the office for any new or worsening symptoms. An acute visit and typically be arranged within 1-2 days. Follow-up as previously scheduled. 3. Gastric reflux K21.9 JANE Mortensen Improved, continue weight loss. 4. Abnormal CT scan, chest R93.[address] of the chest in 1 year. 5. Obesity (BMI 30.0-34.9) E66.9 JANE Mortensen Improved. Continue weight loss. 6. Bronchiectasis without complication J47.9 JANE Mortensen New. Encourage acapella BID, if persistent infections despite compliance with acapella may require Vest therapy. Education provided on bronchiectasis and acapella. 08/24/18 1222 <Electronically signed by Gisel Zelaya RELIEF PILOT-C> Date Gisel ZelayaC cc: Elmo Snow MD * Signed Assessment AND Plan 1. LESLY (obstructive sleep apnea) G47.33 Plan Patient is using and benefiting from Pap therapy. No indication for titration study at this time. Continue to encourage weight loss. Contact the office for any new or worsening symptoms in the meantime. Follow-up as previously scheduled 2. Asthma-COPD overlap syndrome J44.9 Plan Does not appear to be an exacerbation of asthma/COPD today. No need for prednisone or antibiotic. Continue current maintenance medication. No additional testing at this time. Contact the office for any new or worsening symptoms. An acute visit and typically be arranged within 1-2 days. Follow-up as previously scheduled. 3. Gastric reflux K21.9 Plan Improved, continue weight loss. 4. Abnormal CT scan, chest R93.89 CT of the chest August 01, 2018 stable interstitial thickening, linear opacity of the lung bases, mild bronchiectasis, stable 5 mm nodule in the right lower lobe Plan Repeat CT of the chest in 1 year. 5. Obesity (BMI 30.0-34.9) E66.9 Plan Improved. Continue weight loss. 6. Bronchiectasis without complication J47.9 Plan New. Encourage acapella BID, if persistent infections despite compliance with acapella may require Vest therapy. Education provided on bronchiectasis and acapella. HPI HPI Comments Details: PFT and CT....just finished 40 day ATB by Alcira last Fri. He feels like the cough has improved but he feels a weeks or so after the cough normally comes back. He has not needed his rescue inhaler since then. Cough currently improved but when he does cough sputum remains thick and yellow. He continues with his weight loss by diet and exercise. This is a 63 year old M, currently under the care of Elmo Snow MD, here today to review test results. I personally reviewed the tests/images/tracings which showed: Complete Pulmonary Function test were preformed on July 31, 2018, and showed FVC of 84 % of predicted, FEV1 of 87 % of predicted, FEV1/FVC ratio of 77 %, TLC of 78% of predicted, RV of 66% of predicted, DLCO 101% of predicted. The test was interpreted to be consistent with reversible mild mixed ventilatory defect, with a significant response to bronchodilators and a preserved diffusing capacity. Has been significant improvement when compared to previous study. I personally reviewed a chest CT, that was completed on August 01, 2018, that showed stable interstitial thickening and linear opacity of the lung bases may represent a fibrotic process, mild bronchiectasis appears stable. Stable small right lower lobe nodule. 100%, 6 hours, 15 cmH20, ahi 2.0 leaking, due for new cushion, Intake Vital Signs08/24/18 Body Mass Index (BMI) 30.0 08/24/18 Height 6 ft 1 in 08/24/18 Weight: 222 lb Intake Visit Reasons: PFT and CT results Accompanied by: Self Allergies No Known Allergies Allergy (Verified 08/24/18 07:40) Medications Aspirin 81 mg PO DINNER 12/19/16 [History Confirmed 08/24/18] Atorvastatin Calcium [Lipitor] 20 mg PO DINNER 03/11/17 [History Confirmed 08/24/18] Clopidogrel Bisulfate [Plavix] 75 mg PO DINNER 03/11/17 [History Confirmed 08/24/18] Pantoprazole Sodium [Protonix] 20 mg PO DINNER 03/11/17 [History Confirmed 08/24/18] Albuterol Inhaler [Ventolin Hfa] 1 - 2 puff INHALATION Q4H PRN PRN #1 inhaler 03/12/17 [Rx Confirmed 08/24/18] Albuterol Aerosols [Ventolin Aerosols] 2.5 mg INHALATION Q4H PRN PRN 05/13/17 [History Confirmed 08/24/18] Nitroglycerin [Nitrostat] 0.4 mg SUBLINGUAL Q5M PRN #1 bottle 05/16/17 [Rx Confirmed 08/24/18] Fluticasone 0.05% [Flonase Nasal [place]] 1 spray NASAL BID 06/03/17 [History Confirmed 08/24/18] Sertraline HCl [Zoloft] 50 mg PO DAILY 06/24/17 [History Confirmed 08/24/18] losartan 25 mg tablet 12.5 mg PO QDAY tab 10/28/17 [History Confirmed 08/24/18] montelukast 10 mg tablet 10 mg PO DAILY@1700 #90 tab 06/23/18 [Rx Confirmed 08/24/18] fluticasone 200 mcg-vilanterol 25 mcg/dose powder for inhalation 1 inh INHALATION DAILY #60 ea 07/22/18 [Rx Confirmed 08/24/18] [facility] Medical History CVA (cerebral vascular accident) (Acute) HLD (hyperlipidemia) (Chronic) Atherosclerotic heart disease of [place] coronary artery without angina pectoris (Chronic) Pre-operative cardiovascular examination (Chronic) 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) Diastolic dysfunction (Chronic) LESLY (obstructive sleep apnea) (Chronic) HTN (hypertension) (Chronic) Acute exacerbation of COPD with asthma (Acute) Hyperlipidemia (Chronic) COPD (chronic obstructive pulmonary disease) (Chronic) Obesity (BMI 30.0-34.9) (Chronic) Chest pain (Chronic) Patent foramen ovale (Chronic) Prostate cancer (Chronic) Gastric reflux (Chronic) Asthma (Chronic) Dyspnea (Resolved) URI (upper respiratory infection) (Resolved) Wheezing (Resolved) Pneumonia (Inactive) Sinusitis (Inactive) Surgical History History of prostate surgery (Acute) Postsurgical percutaneous transluminal coronary angioplasty (PTCA) status (Chronic 05/15/17) Presence of stent in coronary artery (Chronic 05/15/17) History of left heart catheterization (LHC) (Chronic 05/15/17) History of vasectomy (Chronic) Family History Father Hypertension Prostate cancer Mother CAD (coronary artery disease) Social History household members: spouse housing: house Smoking Status: Former smoker how long ago did patient quit smokin, 1ppd second hand exposure: Yes alcohol intake: current alcohol intake frequency: a few times a month substance use type: does not use caffeine: Yes what type of physical activity do you participate in: none frequency: does not exercise seatbelt use: always Review of Systems Const CONSTITUTIONAL: Positive weight loss and weight loss; negative anorexia, body ache, chills, daytime sleepiness, fever(s), night sweats, oral thrush, stops breathing during sleep, sleeping in chair, fatigue, weight gain, frequent colds, seasonal allergies, other, headache(s) or orthopnea EETM Ear Nose Throat Mouth: Positive hearing normal; negative hard of hearing, hoarseness, dry mouth in morning, change in vision, itchy eyes, eye pain, swallowing Difficulty, ear pain, nose bleed, headache(s), mouth pain, nasal congestion, nasal discharge, post nasal drip, sinus pain, sinus pressure, sore throat or other Cardio Cardiovascular: Negative chest pain, chest pain at rest, chest pain with activity, irregular heart rhythm, edema, shortness of breath when lying down, palpitations, murmur or other Resp Respiratory: Positive as per HPI, shortness of breath shortness of breath: Positive with activity and cough cough: Positive productive color: Positive thick and yellow; negative pain with cough, wheezing, chest congestion, chest tightness, pain on inspiration, inhalers, increase use of rescue inhalers, snoring, apnea or other Gastro Gastrointestional: Negative bloody stools, change in appetite, difficulty swallowing, reflux, hematemesis, melena stool, loose stool, constipation or other Genitourinary: Negative blood in urine, nocturia, pain with urination or other Musc Musculoskeletal: Negative body pain, back pain, neck pain or other Skin/Breast Skin/Breast: Negative dry skin, itching, rash, unusual bruising, breast lump or other Neuro Neurological: Negative restless legs, confusion, weakness or other Psych Psychocological: Negative abnormal sleep pattern, anxiety, thoughts of hurting self/others, hopelessness or other Lymph Lymphatic: Negative easy bleeding, easy bruising, swollen lymph nodes or other Exam Const Constitutional: Positive conversant, cooperative, in no acute respiratory distress, healthy appearing, well developed, well nourished and good hygiene Head Head: Positive normocephalic and atraumatic; negative cyanosis of lips/distal nose Eyes Eye: Positive clear conjunctiva; negative nystagmus or scleral abnormality Ears Ear: Positive hearing normal and external ears normal; negative hard of hearing Nose Nose: Positive external nose normal and no nasal discharge; negative epistaxis Mouth Mouth: Positive oral mucosae normal, no lesions and crowded posterior oropharynx; negative post nasal drip, malodorous breath or oral thrush present Mallampati Score: III: Mallampati Score Neck Neck: Positive normal visual inspection, full ROM and trachea midline; negative lymphadenopathy, JVD or tender Chest Wall Chest: Positive normal inspection of the chest and symmetric chest movement; negative increased A/P diameter Resp lung sounds: Positive clear to auscultation, good air exchange, normal expiratory time and normal respiratory effort; negative diminished, wheezes, rhonchi, rales, dullness to percussion or wheeze present on forced exhalation Cardio Cardiac: Positive regular rate, regular rhythm, S1 normal and S2 normal; negative murmur GI GI: Positive normal to inspection; negative distended Genitourinary: Positive deferred Musc Musculoskeletal: Positive steady gait and ROM normal; negative kyphosis or scoliosis Skin Pulmonary Skin Exam: Positive intact; negative rash Pulses Pulse: Yes pulses normal x4 extremities Extremities Extremities: Yes capillary refill normal, No clubbing, No cyanosis, No edema Neuro Neurologic: Yes conversant, Yes no focal neuro deficits, Yes normal concentration, Yes understands questions, Yes cooperative, Yes normal cognition, Yes normal coordination, No tremor Lymph Lymphatic: No lymphadenopathy, No tenderness, No cervical adenopathy Psych Appearance: Positive grossly normal, eye contact and well kempt Mental Status: Positive mental status grossly normal Mood: Positive congruent mood Affect: Positive normal affect Coding Level of Care Code Off vis,est,level 4 Diagnoses LESLY (obstructive sleep apnea) G47.33 Asthma-COPD overlap syndrome J44.9 Gastric reflux K21.[address] scan, chest R93.89 Obesity (BMI 30.0-34.9) E66.9 Bronchiectasis without complication J47.9 Bronchiectasis type: uncomplicated 08/24/18 1207 <Electronically signed by Gisel LARA> Date Gisel LARA Cosigner Signature: Date (if applicable) CC: Elmo Snow MD CHEST WITHOUT Observed: 08/01/2018 Status: F Source: [place] CONTRAST 6:57 AM [facility] Imaging [place] [address] Chest without Contrast MR#: [id number] Acct: [id number] Name: MACI HOWARD Rep #: [id number] : 1955 M 63 From: Johny Simeon MD PCP: Elmo Snow MD Status: REG CLI Study: Chest without Contrast Date of Exam: 08/01/18 Exam# [id number] Ordering Dr: Stewart Pearl MD STUDY: CT CHEST WITHOUT CONTRAST REASON FOR EXAM: Male, 63 years old. Wheezing. RADIATION DOSAGE (If Supplied By Facility): CTDIvol = ( 15.34 ) mGy, DLP = ( 563.67 ) mGycm TECHNIQUE: Transaxial imaging was performed without the administration of intravenous contrast material. Individualized dose optimization techniques were used for this CT. COMPARISON: June 07, 2017 FINDINGS: Linear opacities and interstitial thickening is noted at the lung bases. There are mild diffuse emphysematous changes in the lungs. There is a stable 5 mm nodule in the right lower lobe axial image 94. There is mild bronchiectasis in the upper and lower lobes. There is no demonstrated pleural abnormality. Normal heart and pericardium. Normal mediastinum. Normal hilar regions. Normal unenhanced pulmonary arteries. Normal aorta arch and descending thoracic aorta. Normal osseous structures. There is no demonstrated abnormality of the visualized upper abdomen. CT/Chest without Contrast IMPRESSION: Stable interstitial thickening and linear opacity of the lung bases may represent a fibrotic process. Mild bronchiectasis appears stable. Stable small right lower lobe nodule. Electronically Signed: Johny Simeon, at 10:27 EST Tel , Service support , CC: Stewart Pearl MD; Elmo Snow MD Broadcast Transmitter Operator: Signed PULMONARY FUNCTION Observed: 08/01/2018 Status: F Source: [place] REPORT COMP 5:48 AM [facility] Pulmonary Services/Neurology [address] [place] [address] MR#: [id number] Acct: [id number] Name: MACI HOWARD Rep #: [id number] : 1955 63 From: Stewart Pearl MD Referring Dr: Stewart Pearl MD Status: REG CLI Ordering Dr: Date: Location: [facility] Sex: M C COMPLETE PULMONARY FUNCTION TEST INTERPRETATION Brief HPI: Patient is a 63 year old male, currently under the care of myself, who presents to [facility] for complete pulmonary function tests secondary to diagnosis of asthma. Respiratory therapist reports good effort and reproducible results. Interpretation: Forced expiration spirometry shows a mild large airways obstructive ventilatory defect with an FEV1 of 87% predicted. There is a significant bronchodilator response in FEV1 by strict ATS criteria. Spirograms are of good quality and plateau slowly, indicating slowly emptying areas of the lungs. The respiratory flow volume loop shows decreased expiratory flow rates at high lung volumes consistent with small airways obstruction. Lung volumes by body plethysmography show a decreased total lung capacity at 5.67 L, 78% predicted. All other lung volumes are reduced symmetrically. Diffusion capacity by carbon monoxide is normal at 101% predicted. The airway resistance is normal. Compared to previous pulmonary function tests from 06/03/2017, there has been a significant improvement in FEV1 and DLCO. Impression: Partially reversible mild mixed ventilatory defect with significant improvement compared to previous 08/01/18 0548 <Electronically signed by Stewart Pearl MD> Date Stewart Pearl MD CC: Stewart Pearl MD; Elmo Snow MD Date Dictated: 07/31/18 1509 Date Transcribed: 07/31/181508 Broadcast Transmitter Operator: SHANKAR Signed PULMONARY VISIT REPORT Observed: 07/22/2018 Status: F Source: [place] 8:35 AM [facility] [place] [address] [place] [address] OFFICE VISIT Date of Service: 07/22/18 MR#: [id number] Acct: [id number] Name: MACI HOWARD Rep #: [id number] : 1955 Provider: Stewart Pearl MD Age/Sex: 63/M Location: [facility] Status: Signed Assessment AND Plan 1. LESLY (obstructive sleep apnea) G47.33 Plan Patient appears to be well controlled at this time. Patient does have a residual AHI of 2 with increased leak, but is reporting subjective improvement in overall condition. No indication for repeat titration study at this time. Did encourage weight loss. Patient voiced understanding. Continue current settings. Encourage weight loss. 2. Severe persistent asthma with acute exacerbation J45.51 Plan Patient appears to be in acute masturbation of asthma at this time. Patient has had multiple issues with sinusitis and is on prolonged antibiotics at this time. Patient was taken off of controller medication, which likely led to his current increase in albuterol use. Patient will be given a 5-day burst of steroids. Patient will also be initiated on Brio therapy. Patient was given samples and a co-pay card. Patient has used this before this visit. Will obtain a complete pulmonary function test for comparison to previous. If significant decline, secondary workup may be necessary. Cannot exclude the need for an allergy consultation. Obtain complete PFT. Initiate prednisone and Breo therapy. Continue current antibiotics 3. Abnormal CT of the chest R93.89 Plan Patient has had fibrotic changes noted on previous CT scan of the chest. This was completed approximately 1 year ago. Patient is reporting progressive symptoms. Will obtain a CT scan of the chest for comparison. Patient has been seen by surgery, but no EGD was completed to evaluate for reflux. If fibrosis is worse, rheumatologic workup may be necessary. Patient may also require EGD for evaluation of possible reflux disease. Repeat CT scan of the chest Orders Orders: Plan Detail Other Orders Orders: Other Medications New: fluticasone-vilanterol 200-25 mcg/dose (Breo1 inh Inhalation DAILY 60 ea 6RF J45.909 Ellipta) Follow Up 3 Months (Jessica) [facility] 3 M FU: Chief Complaint: Productive cough Details: Patient is a 63-year-old male, currently under the care of Dr. Clark, who presents for evaluation secondary to continued productive cough. Since last visit, patient feels subjectively worse compared to previous. Patient states that he has been seen by surgery and no intervention was completed. Patient is also been seen by ENT and has been on multiple doses of antibiotics with amoxicillin and currently Bactrim. Patient states that he is cough is typically worse at night. Patient does have production and wheezing throughout the day. Patient states this is typically thick and can lead to cough and gagging. Patient has noted some weight loss and reports decreased appetite. Patient states that he can wake up at night at approximately 4:00 in the morning with the need to cough up secretions. Patient feels subjectively improved after removal of secretions. Patient has been compliant with CPAP therapy by full facemask. Patient states this is the only thing going right. Patient states he wakes up feeling rested and typically does not require a nap during the day. Patient denies any current pain at the interface site, epistaxis or dry mouth. Documentation personally reviewed with patient Compliance report (June 2018): Compliant 100% of the time for an average of 6 hours 42 minutes on CPAP 15 cm of water with residual AHI of 2 and poorly controlled leak. 6 pages of documentation were reviewed from Dr. Arenas and Dr. Eli. Surgery note is incomplete and not helpful. ENT had noted no improvement following antibiotics, but was placed on Bactrim secondary to chronic ethmoid sinusitis and had a eustachian tube open with significant improvement. HPI Comments Details: Intake Vital Signs07/22/18 Height 6 ft 1 in 07/22/18 Weight: 103.419 kg Intake Visit Reasons: 3 M FU [facility] Vendor: ALICIA changing to [employer] Accompanied by: Allergies No Known Allergies Allergy (Verified 07/22/18 06:41) Medications Aspirin 81 mg PO DINNER 12/19/16 [History Confirmed 07/22/18] Atorvastatin Calcium [Lipitor] 20 mg PO DINNER 03/11/17 [History Confirmed 07/22/18] Clopidogrel Bisulfate [Plavix] 75 mg PO DINNER 03/11/17 [History Confirmed 07/22/18] Pantoprazole Sodium [Protonix] 20 mg PO DINNER 03/11/17 [History Confirmed 07/22/18] Albuterol Inhaler [Ventolin Hfa] 1 - 2 puff INHALATION Q4H PRN PRN #1 inhaler 03/12/17 [Rx Confirmed 07/22/18] Albuterol Aerosols [Ventolin Aerosols] 2.5 mg INHALATION Q4H PRN PRN 05/13/17 [History Confirmed 07/22/18] Nitroglycerin [Nitrostat] 0.4 mg SUBLINGUAL Q5M PRN #1 bottle 05/16/17 [Rx Confirmed 07/22/18] Fluticasone 0.05% [Flonase Nasal [place]] 1 spray NASAL BID 06/03/17 [History Confirmed 07/22/18] Sertraline HCl [Zoloft] 50 mg PO DAILY 06/24/17 [History Confirmed 07/22/18] losartan 25 mg tablet 12.5 mg PO QDAY tab 10/28/17 [History Confirmed 07/22/18] montelukast 10 mg tablet 10 mg PO DAILY@1700 #90 tab 06/23/18 [Rx Confirmed 07/22/18] fluticasone 200 mcg-vilanterol 25 mcg/dose powder for inhalation 1 inh INHALATION DAILY #60 ea 07/22/18 [Rx Confirmed 07/22/18] prednisone 10 mg tablet 40 mg PO DAILY #20 tab 07/22/18 [Rx Confirmed 07/22/18] PFSH Medical History CVA (cerebral vascular accident) (Acute) HLD (hyperlipidemia) (Chronic) Atherosclerotic heart disease of [place] coronary artery without angina pectoris (Chronic) Pre-operative cardiovascular examination (Chronic) 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) Diastolic dysfunction (Chronic) LESLY (obstructive sleep apnea) (Chronic) HTN (hypertension) (Chronic) Acute exacerbation of COPD with asthma (Acute) Hyperlipidemia (Chronic) COPD (chronic obstructive pulmonary disease) (Chronic) Obesity (BMI 30.0-34.9) (Chronic) Chest pain (Chronic) Patent foramen ovale (Chronic) Prostate cancer (Chronic) Gastric reflux (Chronic) Asthma (Chronic) Dyspnea (Resolved) URI (upper respiratory infection) (Resolved) Wheezing (Resolved) Pneumonia (Inactive) Sinusitis (Inactive) Surgical History History of prostate surgery (Acute) Postsurgical percutaneous transluminal coronary angioplasty (PTCA) status (Chronic 05/15/17) Presence of stent in coronary artery (Chronic 05/15/17) History of left heart catheterization (LHC) (Chronic 05/15/17) History of vasectomy (Chronic) Family History Father Hypertension Prostate cancer Mother CAD (coronary artery disease) Social History household members: spouse housing: house Smoking Status: Heavy Smoker (>10/day) how long ago did patient quit smokin second hand exposure: Yes alcohol intake: current alcohol intake frequency: a few times a month substance use type: does not use caffeine: Yes what type of physical activity do you participate in: none frequency: does not exercise seatbelt use: always Review of Systems Const CONSTITUTIONAL: Positive weight loss; negative anorexia, body ache, chills, daytime sleepiness, fever(s), night sweats, oral thrush, stops breathing during sleep, sleeping in chair, fatigue, weight loss, weight gain, frequent colds, seasonal allergies, other, headache(s) or orthopnea EETM Ear Nose Throat Mouth: Positive post nasal drip; negative hoarseness, dry mouth in morning, change in vision, itchy eyes, eye pain, swallowing Difficulty, ear pain, mouth pain, nasal congestion, nasal discharge, sinus pain, sinus pressure, sore throat, other, hard of hearing, hearing normal, nose bleed or headache(s) Cardio Cardiovascular: Negative chest pain, chest pain at rest, chest pain with activity, irregular heart rhythm, edema, palpitations, other, murmur or shortness of breath when lying down Resp Respiratory: Positive as per HPI, shortness of breath shortness of breath: Positive with activity, lying down and worsening, wheezing, cough cough: Positive productive (increase at HS ) color: Positive thick and yellow and increase use of rescue inhalers; negative pain with cough, chest congestion, chest tightness, pain on inspiration, inhalers, snoring, apnea or other Gastro Gastrointestional: Positive change in appetite and reflux; negative bloody stools, difficulty swallowing, hematemesis, melena stool, loose stool, constipation or other Genitourinary: Negative blood in urine, nocturia, pain with urination or other Musc Musculoskeletal: Negative body pain, back pain, neck pain or other Skin/Breast Skin/Breast: Negative dry skin, itching, unusual bruising, breast lump, other or rash Neuro Neurological: Negative restless legs, confusion, weakness or other Psych Psychocological: Negative abnormal sleep pattern, anxiety, thoughts of hurting self/others, hopelessness or other Lymph Lymphatic: Negative easy bleeding, easy bruising, other or swollen lymph nodes Exam Const Constitutional: Positive conversant, cooperative, in no acute respiratory distress, healthy appearing, well developed, well nourished, good hygiene and obese; negative wearing supplemental oxygen, dyspenic, smells of smoke or ill appearing Head Head: Positive normocephalic and atraumatic; negative cyanosis of lips/distal nose, frontal sinus tenderness or maxillary sinus tenderness Eyes Eye: Positive clear conjunctiva; negative nystagmus, scleral abnormality or cataract present Ears Ear: Positive external ears normal; negative hard of hearing or hearing normal Nose Nose: Positive external nose normal, septum normal and clear nasal discharge; negative epistaxis or nasal polyp Mouth Mouth: Positive post nasal drip, oral mucosae normal, no lesions, good dentition and crowded posterior oropharynx; negative malodorous breath or oral thrush present Mallampati Score: III: Mallampati Score Neck Neck: Positive normal visual inspection, full ROM, trachea midline, thick neck and male neck greater than 43 cm (17 in); negative lymphadenopathy or JVD Chest Wall Chest: Positive normal inspection of the chest and symmetric chest movement; negative crepitus or tenderness Resp lung sounds: Positive wheezes wheezing: Positive bilateral, prolonged expiratory time and increased work of breathing; negative rhonchi, rales or use of accessory muscles Cardio Cardiac: Positive regular rate, regular rhythm, S1 normal and S2 normal; negative murmur, rub or gallop GI GI: Positive normal to inspection, normal bowel sounds and obese; negative distended, ascites or epigastric tenderness Genitourinary: Positive deferred Musc Musculoskeletal: Positive steady gait; negative using an assistive device for ambulation, kyphosis or scoliosis Skin Pulmonary Skin Exam: Positive intact; negative rash, lesion, ulcers, erythema or dermal atrophy Pulses Pulse: Yes radial pulses present Extremities Extremities: Yes capillary refill normal, No clubbing, No cyanosis, No edema, No stasis dermatitis Neuro Neurologic: Yes conversant, Yes no focal neuro deficits, Yes normal concentration, Yes understands questions, Yes cooperative, Yes normal cognition, Yes normal coordination Lymph Lymphatic: No lymphadenopathy Psych Appearance: Positive grossly normal Mental Status: Positive mental status grossly normal Mood: Positive congruent mood Affect: Positive normal affect Coding Level of Care Code Off vis,est,level 5 Diagnoses LESLY (obstructive sleep apnea) G47.33 Severe persistent asthma with acute exacerbation J45.51 Asthma severity: severe Asthma complication type: with acute exacerbation Asthma persistence: persistent Abnormal CT of the chest R93.89 07/22/18 0835 <Electronically signed by Stewart Pearl MD> Date Stewart Pearl MD Cosigner Signature: Date (if applicable) CC: Elmo Snow MD CBC Collected: 06/22/2018 Status: F Source: [place] 8:22 AM [facility] REPOSITORY TYPE CODE TESTS RESULT OUT OF REFERENCE UNITS RANGE LAB WBC 3.70-11.00 k/uL WBC 6.30 LAB RBC 4.20-6.00 m/uL RBC 5.30 LAB HGB 13.0-17.0 g/dL Hemoglobin 16.9 LAB HCT 39.0-51.0 % Hematocrit 50.1 LAB MCV 80.0-100.0 fL MCV 94.5 LAB MCH 26.0-34.0 pG MCH 31.9 LAB MCHC 30.5-36.0 g/dL MCHC 33.7 LAB RDWCV 11.5-15.0 % RDW-CV 13.2 LAB PLTCT 150-400 k/uL Platelet Count 181 LAB MPV 9.0-12.7 fL MPV 9.5 LAB ABSNUC <0.01 k/uL Absolute nRBC <0.01 Performed By: #### CBC #### [facility] [address] [place], [place] [address] COMP METABOLIC PANEL Collected: 06/22/2018 Status: F Source: [place] 7:47 AM [facility] REPOSITORY TYPE CODE TESTS RESULT OUT OF REFERENCE UNITS RANGE LAB TP 6.3-8.0 g/dL Test reordered by Protein, [facility]. Total Result Comment: [id number] [facility] Account Credited LAB ALB 3.9-4.9 g/dL Test Albumin reordered by [facility]. Result Comment: [id number] [facility] Account Credited LAB CA 8.5-10.2 mg/dL Test Calcium, Total reordered by [facility]. Result Comment: [id number] [facility] Account Credited LAB TBIL 0.2-1.3 mg/dL Bilirubin, Test Total reordered by [facility]. Result Comment: [id number] [facility] Account Credited LAB ALKP 38-113 U/L Alkaline Test Phosphatase reordered by [facility]. Result Comment: [id number] [facility] Account Credited LAB AST 14-40 U/L Test AST reordered by [facility]. Result Comment: [id number] [facility] Account Credited LAB GLU 74-99 mg/dL Test Glucose reordered by [facility]. Result Comment: [id number] [facility] Account Credited LAB BUN 9-24 mg/dL Test BUN reordered by [facility]. Result Comment: [id number] [facility] Account Credited LAB CRET 0.73-1.22 mg/dL Creatinine Test reordered by [facility]. Result Comment: [id number] [facility] Account Credited LAB NA 136-144 mmol/L Test Sodium reordered by [facility]. Result Comment: [id number] [facility] Account Credited LAB K 3.7-5.1 mmol/L Test Potassium reordered by [facility]. Result Comment: [id number] [facility] Account Credited LAB CL 97-105 mmol/L Test Chloride reordered by [facility]. Result Comment: [id number] [facility] Account Credited LAB CO2 22-30 mmol/L Test CO2 reordered by [facility]. Result Comment: [id number] [facility] Account Credited LAB AGAP 9-18 mmol/L Test Anion Gap reordered by [facility]. Result Comment: [id number] [facility] Account Credited LAB ALT 10-54 U/L Test ALT reordered by [facility]. Result Comment: [id number] [facility] Account Credited LAB GFRAA eGFR- Amer. Test reordered by [facility]. Result Comment: [id number] [facility] Account Credited LAB GFRNAA . eGFR-All Test Other Races reordered by [facility]. Result Comment: [id number] [facility] Account Credited LAB GFRPED eGFR-Ped. Test Factor reordered by [facility]. Result Comment: [id number] [employer] Account Credited Performed By: #### CMP #### [facility] [address] [place], [place] [address] COMP METABOLIC PANEL Collected: 06/22/2018 Status: F Source: [place] 7:47 AM [facility] REPOSITORY TYPE CODE TESTS RESULT OUT OF REFERENCE UNITS RANGE LAB TP 6.3-8.0 g/dL Protein, Total 6.8 LAB ALB 3.9-4.9 g/dL Albumin 4.1 LAB CA 8.5-10.2 mg/dL Calcium, Total 9.1 LAB TBIL 0.2-1.3 mg/dL Bilirubin, Total 0.7 LAB ALKP 38-113 U/L Alkaline Phosphatase 76 LAB AST 14-40 U/L AST 21 LAB GLU 74-99 mg/dL Glucose 77 Result Comment: The [place] [employer] (ADA) provides guidance for cutoff values for fasting glucose and random glucose. The ADA defines fasting as no caloric intake for at least 8 hours. Fas ting plasma glucose results between 100 to 125 mg/dL indicate increased risk for diabetes (prediabetes). Fasting plasma glucose results greater than or equal to 126 mg/dL meet the criteria for diagnosis of diabetes. In the absence of unequivocal hyperglycemia, results should be confirmed by repeat testing. In a patient with classic symptoms of hyperglycemia or hyperglycemic crisis, random plasma glucose results greater than or equal to 200 mg/dL meet the criteria for diagnosis of diabetes. Reference: Standards of Medical Care in Diabetes 2016, [place] [employer] Association. Diabetes Care. 2016.39(Suppl 1). LAB BUN 9-24 mg/dL BUN 21 LAB CRET 0.73-1.22 mg/dL Creatinine 1.12 LAB NA 136-144 mmol/L Sodium 140 LAB K 3.7-5.1 mmol/L Potassium 4.3 LAB CL 97-105 mmol/L Chloride 105 LAB CO2 22-30 mmol/L CO2 Low 21 LAB AGAP 9-18 mmol/L Anion Gap 14 LAB ALT 10-54 U/L ALT 20 LAB GFRAA eGFR- Amer. >60 LAB GFRNAA . eGFR-All Other Races >60 Result Comment: eGFR (Estimated GFR) Units of measure: mL/min/1.73 meters squared eGFR is derived from the reexpressed MDRD Study equation using the following parameters: serum creatinine, age, gender and race. The creatinine assay has been calibrated to be traceable to IDMS. An eGFR <60 mL/min/1.73m2 for >3 months is consistent with chronic kidney disease. Refer to KDOQI guidelines for clinical interpretation. In patients with unstable renal function, e.g. those with acute kidney injury, the eGFR may not accurately reflect actual GFR. Performed By: #### CMP #### [facility] [address] [place], [place] [address] PROGRESS Observed: 06/12/2018 Status: COMPLETED Source: [place] 8:10 AM [facility] [place] REPOSITORY HNO ID: [id number] Author: Vilma Espinoza) Gwendolyn Service: (none) Author Type: Physician Type: Progress Notes Filed: 06/12/2018 3:23 PM Note Text: Chief Complaint Patient presents with: Recheck: 6 month Imm/Inj: Flu Vaccine HPI Maci Howard is a 63 year old male who presents here today for 6 month f/u. Patient states that he has a breathing disorder for over a year now and different doctors (ENT and pulmonology) have not been able to give him a definitive diagnosis. States that when he isn't on antibiotics he has a constant productive cough. Patient started a 21 day treatment of amoxicillin per Dr. Eli on Friday. Cough is worse in the morning when he first gets up and at night when he is trying to go to sleep Sputum is thick and yellow. Denies any constitutional symptoms. Patient also states that he is short of breath occasionally because of the cough. This causes him to sit down and rest which allows him to catch his breath. Patient would like to discontinue zoloft. Feels that anxiety/depression is currently well controlled and that he doesn't need it to manage his symptoms anymore. Past medical history, appointments, medications, allergies reviewed. Previous Medical History PAST MEDICAL HISTORY Diagnosis Date - Anxiety - Asthma Childhood. 10/2017 bronchoscopy/biopsy with inflammation, eosinophils. - CAD (coronary artery disease) s/p SHANIQUA to [facility], seeing Dr. Llanos - Depression - Diaphragmatic hernia without mention of obstruction or gangrene - Dyslipidemia - Dysphagia - Dyspnea With wheezing. Spirometry w/o obstruction 02/01 and 06/03. Dr. Jewell 08/2017. Has seen Dr. Pearl - Esophagitis, unspecified - GERD (gastroesophageal reflux disease) - History of CVA (cerebrovascular accident) 06/20/2014 mild - Obesity (BMI 30.0-34.9) - LESLY (obstructive sleep apnea) Consistently compliant with CPAP. - PFO (patent foramen ovale) - Prostate cancer (HCC) 2012 s/p prostatectomy, Sue Previous Surgical History PAST SURGICAL HISTORY Procedure Laterality Date - EGD W/O OR W/BRUSH/WASH 05/01/2007 EGD - EGD W/O OR W/BRUSH/WASH 03/21/2013 [facility] EGD - PAST SURGICAL HISTORY OF submandibular gland removed - PAST SURGICAL HISTORY OF 10/31/14 Robotic Prostatectomy - PAST SURGICAL HISTORY OF 04/2017 SHANIQUA to LAD - PAST SURGICAL HISTORY OF 06/2017 sinus surgery Family History FAMILY HISTORY Problem Relation Age of Onset - Heart Mother CAD. - Hypertension Mother - Cancer Father Prostate cancer. - other (Other) Father Lower lobectomy, not cancerous. - Cancer Paternal Grandfather Prostate Cancer. - other (Other) Other No allergy, asthma, COPD. Patient Allergies ALLERGIES Allergen Reactions - [facility] [* Current Medications Current Outpatient Prescriptions on File Prior to Visit: fluticasone (FLONASE) 50 mcg/actuation nasal spray USE 2 SPRAYS IN EACH NOSTRIL ONCE DAILY; RINSE MOUTH AFTER USE clopidogrel (PLAVIX) 75 mg tablet TAKE 1 TABLET ONCE DAILY atorvastatin (LIPITOR) 20 mg tablet TAKE 1 TABLET DAILY sertraline (ZOLOFT) 50 mg tablet TAKE ONE TABLET BY MOUTH DAILY budesonide-formoterol (SYMBICORT) 160-4.5 mcg/actuation inhaler Inhale 2 Puffs as instructed twice daily. pantoprazole DR (PROTONIX) 20 mg tablet TAKE 1 TABLET DAILY BEFORE BREAKFAST. TAKE ON AN EMPTYSTOMACH, 1/2 HOUR BEFORE A MEAL. losartan (COZAAR) 25 mg tablet Take 0.5 tablets by mouth once daily. montelukast (SINGULAIR) 10 mg tablet Take 1 tablet by mouth daily at bedtime. NITROGLYCERIN SUBLINGUAL Dissolve under the tongue as needed. CPAP atorvastatin (LIPITOR) 20 mg tablet TAKE 1 TABLET DAILY Albuterol Sulfate 0.63 mg/3 mL nebulizer solution Inhale contents of 1 vial in nebulizer every 4 hours as needed for wheezing albuterol HFA (VENTOLIN HFA) 90 mcg/actuation inhaler Inhale 2 Puffs as instructed every 4 hours as needed. metoprolol succinate ER (TOPROL XL) 25 mg 24 hr tablet Take 1 tablet by mouth once daily. (Patient taking differently: Take 25 mg by mouth once daily. Taking 12.5mg daily ) aspirin 81 mg chewable tablet Take 81 mg by mouth once daily. No current facility-administered medications on file prior to visit. 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 Social History Main Topics Smoking status: Former Smoker Packs/day: 1.00 Years: 20.00 Types: Cigarettes Quit date: 08/18/1989 Smokeless tobacco: Former User Types: Snuff Quit date: 01/16/2017 Alcohol use: Yes 4.5 oz/week Cans of Beer (12oz): 3 per week Comment: rare-beer Drug use: No Sexual activity: Yes Partners with: Female control/protection: Vasectomy Social History Narrative [place] 2007[place] 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 Window A/C. No pets in home. Prior owners had cats. Air purifier in LR. Review of Symptoms REVIEW OF SYSTEMS GENERAL: No weight loss, malaise or fevers HEENT: Negative for frequent or significant headaches, No changes in hearing or vision, no nose bleeds or other nasal problems NECK: Negative for lumps, goiter, pain and significant neck swelling RESPIRATORY: Cough; productive with yellow sputum, Wheezing, Shortness of breath CARDIOVASCULAR: Negative for chest pain, leg swelling, hypertension, CHF or palpitations GI: No nausea, vomiting, or diarrhea : No history of dysuria, frequency or incontinence MUSCULOSKELETAL: Negative for joint pain or swelling, back pain or muscle pain SKIN: Negative for lesions, rash, and itching PSYCH: Negative for sleep disturbance, mood disorder and recent psychosocial stressors HEMATOLOGY/LYMPHOLOGY: Positive for bruises easily ENDOCRINE: Negative for cold or heat intolerance, polyuria, polydipsia and goiter NEURO: No history of headaches, syncope, paralysis, seizures or tremors EXAM: BP 116/80 (BP Site: Left Arm, BP Position: Sitting, BP Cuff Size: Regular Adult) Pulse 62 Resp 16 Wt 108.9 kg (240 lb) BMI 31.66 kg/m? General Appearance: Well appearing, alert, in no acute distress, well-hydrated, well nourished.. Skin: Skin color, texture, turgor normal, no suspicious rashes or lesions. Head: Normocephalic, no masses, lesions, tenderness or abnormalities. Lungs: Positive findings: bilateral coarse breath sounds posteriorly. Slight expiratory wheezes. Cough. Heart: RRR without murmur, gallop, or rubs. No ectopy. Abdomen: Normal abdominal exam, Abdomen soft, non-tender. Bowel sounds normal. No masses, organomegaly. Extremities: No deformities, edema, skin discoloration, clubbing or cyanosis. Good capillary refill. . Health Maintenance List BP CONTROLLED (<130/80) due on 1972 INFLUENZA(1) due on 04/18/2018 STATIN MED ADHERENCE due on 06/18/2018 STEROID INHALER PRESCRIBED due on 06/18/2018 STEROID INHALER ADHERENCE due on 06/18/2018 LDL CHOLESTEROL due on 12/08/2018 ANNUAL PCP TEAM CHRONIC DISEASE VISIT due on 12/10/2018 FECAL OCCULT BLOOD due on 04/06/2019 DIABETES SCREEN due on 08/22/2020 LIPID SCREEN due on 12/08/2022 DTAP,TDAP,TD(4 - Td) due on 12/11/2027 PROSTATE CANCER SCREENING DISCUSSION Completed HEPATITIS C SCREENING Completed Data reviewed ASSESSMENT/PLAN: 1. SOB (shortness of breath) - ICD9: 786.05, ICD10: R06.02 (primary diagnosis) -patient states that shortness of breath increases when he is coughing -recommend f/u with ENT or pulmonary medicine for further work up of cough -continue flonase 2 sprays/nostril daily -continue montelukast 10 mg at bedtime -continue albuterol nebulizer 1 vial q4 PRN -continue albuterol inhaler 2 puffs q4 PRN 2. Coronary artery disease involving mentasta heart without angina pectoris, unspecified vessel or lesion type - ICD9: 414.01, ICD10: I25.10 -continue plavix 75 mg once daily -continue aspirin 81 mg once daily -continue losartan 12.5 mg once daily -continue atorvastatin 20 mg once daily -continue metoprolol 25 mg once daily 3. LESLY on CPAP - ICD9: 327.23, V46.8, ICD10: G47.33, Z99.89 -patient states that CPAP is working well for him and he sleeps will at night with it -continue current usage 4. Moderate episode of recurrent major depressive disorder (HCC) - ICD9: 296.32, ICD10: F33.1 -patient states depression symptoms are currently well controlled -patient has requested to discontinue zoloft -should any anxiety or depression recur patient should f/u with office to restart zoloft 5. Need for vaccination - ICD9: V05.9, ICD10: Z23 - INFLUENZA VACCINE QUADRIVALENT AGE 3 YRS PLUS + IM 6. Microscopic hematuria - ICD9: 599.72, ICD10: R31.29 -recheck with UA to see if hematuria has resolved - URINALYSIS WITH MICROSCOPIC - CBC - COMP METABOLIC PANEL Jean Paul Hayes MS Attending Note I have personally performed a face to face assessment of the patient and have reviewed the medical student note. My abel findings include: History: as above. Also noted patient using CPAP nightly and is working well for symptoms. Denies gross hematuria, but had microscopic in the past so needs recheck. Depression symptoms well controlled on Zoloft and has been controlled for the last year. Would like to discontinue at this time. Discussed risks and benefits of cessation. Exam is unchanged Assessment/Plan are unchanged. Other additions or changes: As edited Signature: Vilma Snow MD Date: 06/12/2018 Time: 11:02 AM PROGRESS Observed: 06/12/2018 Status: COMPLETED Source: [place] 8:01 AM [facility] REPOSITORY HNO ID: [id number] Author: Lorna Sahni Service: (none) Author Type: (none) Type: Progress Notes Filed: 06/12/2018 3:23 PM Note Text: 63 year old male here for INACTIVATED INFLUENZA VACCINE. [id number] Season Patient is identified by name and date of : Yes [] CONTRAINDICATIONS color enhanced section Age less than 6 months? No Allergy to eggs, chicken, chicken feathers, or chicken dander? No Allergy to thimerosal (a preservative) or formaldehyde, gelatin? No History of severe reaction to any vaccine component or a previous dose of influenza vaccination? No History of Guillain-Hines Syndrome within 6 weeks after a previous influenza vaccine? No Patient is not moderately or severely ill? No Current temperature greater or equal to 100.4F? No History of Bone Marrow Transplant prior 6 months or solid organ transplant in the past 3 months ? No History of fainting after a prior injection or medical procedure? No- ? If patient has fainted in the past, the CDC recommends sitting or lying down for 15 minutes after the vaccination. [] VERIFICATION color enhanced section Was the answer Yes for any of the above contraindications? No contraindications present. Acceptable to proceed with vaccine. Patient/guardian agrees the above answers are true to the best of their knowledge? Yes Flu vaccine information sheet given? Yes See immunization activity in [facility] for details of immunizations adminstered today. Patient age: [age] year old For The 3032-3206 Flu Season 6-35 months old: Fluzone 0.25 ml - IM (Preservative Free) 3 years of age: Fluzone 0.5 ml - IM (Preservative Free) 3 years and older: Fluzone 0.5 ml- IM-(with Preservatives) 65+ years old: 2-49 years old Fluzone High-Dose 0.5 ml - IM (Preservative Free) FLUMIST- intranasal REMEMBER: If patient is less than 9 years of age and this is the first vaccine of Influenza to be received in any flu season, they should receive a second dose in one months time. CNOV Observed: 06/12/2018 Status: COMPLETED Source: [place] 8:00 AM [facility] REPOSITORY [facility] MACI HOWARD Chidi ([id number]) 1955 M Date Time Provider Department 06/12/18 8:00 AM VILMA SNOW) LIOWS During your visit today, we recorded the following information about you: Pulse Respiration Blood pressure Weight 62/minute 16/minute 116/80 108.9 kg Lorna Sahni 06/12/2018 3:23 PM Signed 63 year old male here for INACTIVATED INFLUENZA VACCINE. Season Patient is identified by name and date of : Yes [] CONTRAINDICATIONS color enhanced section Age less than 6 months? No Allergy to eggs, chicken, chicken feathers, or chicken dander? No Allergy to thimerosal (a preservative) or formaldehyde, gelatin? No History of severe reaction to any vaccine component or a previous dose of influenza vaccination? No History of Guillain-Hines Syndrome within 6 weeks after a previous influenza vaccine? No Patient is not moderately or severely ill? No Current temperature greater or equal to 100.4F? No History of Bone Marrow Transplant prior 6 months or solid organ transplant in the past 3 months ? No History of fainting after a prior injection or medical procedure? No- ? If patient has fainted in the past, the CDC recommends sitting or lying down for 15 minutes after the vaccination. [] VERIFICATION color enhanced section Was the answer Yes for any of the above contraindications? No contraindications present. Acceptable to proceed with vaccine. Patient/guardian agrees the above answers are true to the best of their knowledge? Yes Flu vaccine information sheet given? Yes See immunization activity in [facility] for details of immunizations adminstered today. Patient age: [age] year old For The Flu Season 6-35 months old: Fluzone 0.25 ml - IM (Preservative Free) 3 years of age: Fluzone 0.5 ml - IM (Preservative Free) 3 years and older: Fluzone 0.5 ml- IM-(with Preservatives) 65+ years old: 2-49 years old Fluzone High-Dose 0.5 ml - IM (Preservative Free) FLUMIST- intranasal REMEMBER: If patient is less than 9 years of age and this is the first vaccine of Influenza to be received in any flu season, they should receive a second dose in one months time. Vilma Snow MD 06/12/2018 3:23 PM Signed Chief Complaint Patient presents with: Recheck: 6 month Imm/Inj: Flu Vaccine HPI Maci Howard is a 63 year old male who presents here today for 6 month f/u. Patient states that he has a breathing disorder for over a year now and different doctors (ENT and pulmonology) have not been able to give him a definitive diagnosis. States that when he isn't on antibiotics he has a constant productive cough. Patient started a 21 day treatment of amoxicillin per Dr. Eli on Friday. Cough is worse in the morning when he first gets up and at night when he is trying to go to sleep Sputum is thick and yellow. Denies any constitutional symptoms. Patient also states that he is short of breath occasionally because of the cough. This causes him to sit down and rest which allows him to catch his breath. Patient would like to discontinue zoloft. Feels that anxiety/depression is currently well controlled and that he doesn't need it to manage his symptoms anymore. Past medical history, appointments, medications, allergies reviewed. Previous Medical History PAST MEDICAL HISTORY Diagnosis Date - Anxiety - Asthma Childhood. 10/2017 bronchoscopy/biopsy with inflammation, eosinophils. - CAD (coronary artery disease) s/p SHANIQUA to LAD, seeing Dr. Llanos - Depression - Diaphragmatic hernia without mention of obstruction or gangrene - Dyslipidemia - Dysphagia - Dyspnea With wheezing. Spirometry w/o obstruction 02/01 and 06/03. Dr. Jewell 08/2017. Has seen Dr. Pearl - Esophagitis, unspecified - GERD (gastroesophageal reflux disease) - History of CVA (cerebrovascular accident) 06/20/2014 mild - Obesity (BMI 30.0-34.9) - LESLY (obstructive sleep apnea) Consistently compliant with CPAP. - PFO (patent foramen ovale) - Prostate cancer (HCC) 2012 s/p prostatectomy, [place] Previous Surgical History PAST SURGICAL HISTORY Procedure Laterality Date - EGD W/O OR W/BRUSH/WASH 05/01/2007 EGD - EGD W/O OR W/BRUSH/WASH 03/21/2013 [facility] EGD - PAST SURGICAL HISTORY OF submandibular gland removed - PAST SURGICAL HISTORY OF 10/31/14 Robotic Prostatectomy - PAST SURGICAL HISTORY OF 04/2017 SHANIQUA to LAD - PAST SURGICAL HISTORY OF 06/2017 sinus surgery Family History FAMILY HISTORY Problem Relation Age of Onset - Heart Mother CAD. - Hypertension Mother - Cancer Father Prostate cancer. - other (Other) Father Lower lobectomy, not cancerous. - Cancer Paternal Grandfather Prostate Cancer. - other (Other) Other No allergy, asthma, COPD. Patient Allergies ALLERGIES Allergen Reactions - [facility] [* Current Medications Current Outpatient Prescriptions on File Prior to Visit: fluticasone (FLONASE) 50 mcg/actuation nasal spray USE 2 SPRAYS IN EACH NOSTRIL ONCE DAILY; RINSE MOUTH AFTER USE clopidogrel (PLAVIX) 75 mg tablet TAKE 1 TABLET ONCE DAILY atorvastatin (LIPITOR) 20 mg tablet TAKE 1 TABLET DAILY sertraline (ZOLOFT) 50 mg tablet TAKE ONE TABLET BY MOUTH DAILY budesonide-formoterol (SYMBICORT) 160-4.5 mcg/actuation inhaler Inhale 2 Puffs as instructed twice daily. pantoprazole DR (PROTONIX) 20 mg tablet TAKE 1 TABLET DAILY BEFORE BREAKFAST. TAKE ON AN EMPTYSTOMACH, 1/2 HOUR BEFORE A MEAL. losartan (COZAAR) 25 mg tablet Take 0.5 tablets by mouth once daily. montelukast (SINGULAIR) 10 mg tablet Take 1 tablet by mouth daily at bedtime. NITROGLYCERIN SUBLINGUAL Dissolve under the tongue as needed. CPAP atorvastatin (LIPITOR) 20 mg tablet TAKE 1 TABLET DAILY Albuterol Sulfate 0.63 mg/3 mL nebulizer solution Inhale contents of 1 vial in nebulizer every 4 hours as needed for wheezing albuterol HFA (VENTOLIN HFA) 90 mcg/actuation inhaler Inhale 2 Puffs as instructed every 4 hours as needed. metoprolol succinate ER (TOPROL XL) 25 mg 24 hr tablet Take 1 tablet by mouth once daily. (Patient taking differently: Take 25 mg by mouth once daily. Taking 12.5mg daily ) aspirin 81 mg chewable tablet Take 81 mg by mouth once daily. No current facility-administered medications on file prior to visit. 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 Social History Main Topics Smoking status: Former Smoker Packs/day: 1.00 Years: 20.00 Types: Cigarettes Quit date: 08/18/1989 Smokeless tobacco: Former User Types: Snuff Quit date: 01/16/2017 Alcohol use: Yes 4.5 oz/week Cans of Beer (12oz): 3 per week Comment: rare-beer Drug use: No Sexual activity: Yes Partners with: Female control/protection: Vasectomy Social History Narrative [place] 2007, [place]. 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 Window A/C. No pets in home. Prior owners had cats. Air purifier in LR. Review of Symptoms REVIEW OF SYSTEMS GENERAL: No weight loss, malaise or fevers HEENT: Negative for frequent or significant headaches, No changes in hearing or vision, no nose bleeds or other nasal problems NECK: Negative for lumps, goiter, pain and significant neck swelling RESPIRATORY: Cough; productive with yellow sputum, Wheezing, Shortness of breath CARDIOVASCULAR: Negative for chest pain, leg swelling, hypertension, CHF or palpitations GI: No nausea, vomiting, or diarrhea : No history of dysuria, frequency or incontinence MUSCULOSKELETAL: Negative for joint pain or swelling, back pain or muscle pain SKIN: Negative for lesions, rash, and itching PSYCH: Negative for sleep disturbance, mood disorder and recent psychosocial stressors HEMATOLOGY/LYMPHOLOGY: Positive for bruises easily ENDOCRINE: Negative for cold or heat intolerance, polyuria, polydipsia and goiter NEURO: No history of headaches, syncope, paralysis, seizures or tremors EXAM: BP 116/80 (BP Site: Left Arm, BP Position: Sitting, BP Cuff Size: Regular Adult) Pulse 62 Resp 16 Wt 108.9 kg (240 lb) BMI 31.66 kg/m? General Appearance: Well appearing, alert, in no acute distress, well-hydrated, well nourished.. Skin: Skin color, texture, turgor normal, no suspicious rashes or lesions. Head: Normocephalic, no masses, lesions, tenderness or abnormalities. Lungs: Positive findings: bilateral coarse breath sounds posteriorly. Slight expiratory wheezes. Cough. Heart: RRR without murmur, gallop, or rubs. No ectopy. Abdomen: Normal abdominal exam, Abdomen soft, non-tender. Bowel sounds normal. No masses, organomegaly. Extremities: No deformities, edema, skin discoloration, clubbing or cyanosis. Good capillary refill. . Health Maintenance List BP CONTROLLED (<130/80) due on 1972 INFLUENZA(1) due on 04/18/2018 STATIN MED ADHERENCE due on 06/18/2018 STEROID INHALER PRESCRIBED due on 06/18/2018 STEROID INHALER ADHERENCE due on 06/18/2018 LDL CHOLESTEROL due on 12/08/2018 ANNUAL PCP TEAM CHRONIC DISEASE VISIT due on 12/10/2018 FECAL OCCULT BLOOD due on 04/06/2019 DIABETES SCREEN due on 08/22/2020 LIPID SCREEN due on 12/08/2022 DTAP,TDAP,TD(4 - Td) due on 12/11/2027 PROSTATE CANCER SCREENING DISCUSSION Completed HEPATITIS C SCREENING Completed Data reviewed ASSESSMENT/PLAN: 1. SOB (shortness of breath) - ICD9: 786.05, ICD10: R06.02 (primary diagnosis) -patient states that shortness of breath increases when he is coughing -recommend f/u with ENT or pulmonary medicine for further work up of cough -continue flonase 2 sprays/nostril daily -continue montelukast 10 mg at bedtime -continue albuterol nebulizer 1 vial q4 PRN -continue albuterol inhaler 2 puffs q4 PRN 2. Coronary artery disease involving mentasta heart without angina pectoris, unspecified vessel or lesion type - ICD9: 414.01, ICD10: I25.10 -continue plavix 75 mg once daily -continue aspirin 81 mg once daily -continue losartan 12.5 mg once daily -continue atorvastatin 20 mg once daily -continue metoprolol 25 mg once daily 3. LESLY on CPAP - ICD9: 327.23, V46.8, ICD10: G47.33, Z99.89 -patient states that CPAP is working well for him and he sleeps will at night with it -continue current usage 4. Moderate episode of recurrent major depressive disorder (HCC) - ICD9: 296.32, ICD10: F33.1 -patient states depression symptoms are currently well controlled -patient has requested to discontinue zoloft -should any anxiety or depression recur patient should f/u with office to restart zoloft 5. Need for vaccination - ICD9: V05.9, ICD10: Z23 - INFLUENZA VACCINE QUADRIVALENT AGE 3 YRS PLUS + IM 6. Microscopic hematuria - ICD9: 599.72, ICD10: R31.29 -recheck with UA to see if hematuria has resolved - URINALYSIS WITH MICROSCOPIC - CBC - COMP METABOLIC PANEL Jean Paul Hayes MS Attending Note I have personally performed a face to face assessment of the patient and have reviewed the medical student note. My abel findings include: History: as above. Also noted patient using CPAP nightly and is working well for symptoms. Denies gross hematuria, but had microscopic in the past so needs recheck. Depression symptoms well controlled on Zoloft and has been controlled for the last year. Would like to discontinue at this time. Discussed risks and benefits of cessation. Exam is unchanged Assessment/Plan are unchanged. Other additions or changes: As edited Signature: Vilma Snow MD Date: 06/12/2018 Time: 11:02 AM Referring Provider: VILMA SNOW) [[id number]] Allergies As of Date: 06/12/2018 Noted Allergy Reaction PARAFON FORTE DSC (CHLORZOXAZONE) 03/11/2006 Date Reviewed: 06/12/2018 Reviewed by: Lorna Sahni - Fully Assessed Reason for Visit: Recheck [92] Cmt: 6 month Imm/Inj [58] Cmt: Flu Vaccine Reason For Visit History Recorded Primary Visit Diagnosis:SOB (shortness of breath) [R06.02] Other Visit Diagnoses:Coronary artery disease involving mentasta heart without angina pectoris, unspecified vessel or lesion type [I25.10] LESLY on CPAP [G47.33, Z99.89] Moderate episode of recurrent major depressive disorder (HCC) [F33.1] Need for vaccination [Z23] Microscopic hematuria [R31.29] Order(s):INFLUENZA VACCINE QUADRIVALENT AGE 3 YRS PLUS + IM [[id number]] Order #: [id number] URINALYSIS WITH MICROSCOPIC [SQUAWMIC] Order #: [id number] CBC [SQCBC] Order #: [id number] FUTURE COMP METABOLIC PANEL [SQCMP] Order #: [id number] FUTURE Prescriptions as of 06/12/2018 Sig: FLUTICASONE 50 MCG/ACTUATION * USE 2 SPRAYS IN EACH NO* CLOPIDOGREL 75 MG TABLET TAKE 1 TABLET ONCE DAILY ATORVASTATIN 20 MG TABLET TAKE 1 TABLET DAILY BUDESONIDE-FORMOTEROL HFA 160* Inhale 2 Puffs as instructed * PANTOPRAZOLE 20 MG TABLET,DEL* TAKE 1 TABLET DAILY BEFORE BR* LOSARTAN 25 MG TABLET Take 0.5 tablets by mouth onc* MONTELUKAST 10 MG TABLET Take 1 tablet by mouth daily * NITROGLYCERIN SUBLINGUAL Dissolve under the tongue as* CPAP ATORVASTATIN 20 MG TABLET TAKE 1 TABLET DAILY ALBUTEROL SULFATE 0.63 MG/3 M* Inhale contents of 1 vial in * ALBUTEROL SULFATE HFA 90 MCG/* Inhale 2 Puffs as instructed * METOPROLOL SUCCINATE ER 25 MG* Take 1 tablet by mouth once d* Patient taking differently: Take 25 mg by mouth once jose maria* ASPIRIN 81 MG CHEWABLE TABLET Take 81 mg by mouth once jose maria* Problem List As Of Date 06/12/2018 Noted Resolved DYSPHAGIA [787.2] Esophagitis, unspecified [K20.9] INVALID FOR* More... DIAPHRAGMATIC HERNIA [K44.9] INVALID FOR* FAMILY HX PROSTATIC MALIGNANCY [Z80.42] INVALID FOR* Elevated prostate specific antigen (PSA) [R97.2*INVALID FOR* More... Other and unspecified hyperlipidemia [E78.5] INVALID FOR*12/10/2017 More... Prostate cancer [C61] INVALID FOR* HLD (hyperlipidemia) [E78.5] INVALID FOR* GERD (gastroesophageal reflux disease) [K21.9] INVALID FOR* Hypertensive cardiovascular disease [I11.9] INVALID FOR* Stroke (HCC) [I63.9] INVALID FOR* Chronic anticoagulation [Z79.01] INVALID FOR*09/10/2017 Sleep apnea [G47.30] INVALID FOR*06/02/2017 PFO (patent foramen ovale) [Q21.1] INVALID FOR* LESLY on CPAP [G47.33, Z99.89] INVALID FOR* Cerebrovascular accident (CVA) due to embolism *INVALID FOR* LESLY (obstructive sleep apnea) [G47.33] 06/02/2017 More... History of CVA (cerebrovascular accident) [Z86.*INVALID FOR* More... CAD (coronary artery disease) [I25.10] More... Cough [R05] INVALID FOR*12/10/2017 SOB (shortness of breath) [R06.02] INVALID FOR* Wheezing [R06.2] INVALID FOR*12/10/2017 Depression [F32.9] Medications Discontinued During This Encounter sertraline (ZOLOFT) 50 mg tablet 30 t* 3 03/24/2018 06/12/2018 Cmt: This prescription was filled on 03/24/2018. Any refills authorized will be placed on file. Sig: TAKE ONE TABLET BY MOUTH DAILY Disc: Reason for discontinue is not on file. Disposition: Return in about 6 months (around 12/11/2018). Follow-up and Disposition History Recorded Encounter Status:Closed by VILMA SNOW MD on 06/12/18 SURGERY VISIT REPORT Observed: 04/29/2018 Status: F Source: [place] 9:53 AM [facility] [address] [place] [address] [address] [place] [address] OFFICE VISIT Date of Service: 04/29/18 MR#: [id number] Acct: [id number] Name: MACI HOWARD Chidi Rep #: [id number] : 1955 Provider: Gabe Arenas MD Age/Sex: 62/M Location: [facility] Status: Signed Intake Vital Signs04/29/18 Height 6 ft 1 in 04/29/18 Weight: 240 lb Intake Visit Reasons: Reflux Chief Complaint: Chronic cough Pricing Coordinator Required: No Is patient in pain?: No Allergies No Known Allergies Allergy (Verified 04/29/18 09:04) Medications Aspirin 81 mg PO DINNER 12/19/16 [History Confirmed 04/29/18] Atorvastatin Calcium [Lipitor] 20 mg PO DINNER 03/11/17 [History Confirmed 04/29/18] Clopidogrel Bisulfate [Plavix] 75 mg PO DINNER 03/11/17 [History Confirmed 04/29/18] Pantoprazole Sodium [Protonix] 20 mg PO DINNER 03/11/17 [History Confirmed 04/29/18] Albuterol Inhaler [Ventolin Hfa] 1 - 2 puff INHALATION Q4H PRN PRN #1 inhaler 03/12/17 [Rx Confirmed 04/29/18] Albuterol Aerosols [Ventolin Aerosols] 2.5 mg INHALATION Q4H PRN PRN 05/13/17 [History Confirmed 04/29/18] Montelukast [Singulair] 10 mg PO DAILY@1700 #30 tab 05/16/17 [Rx Confirmed 04/29/18] Nitroglycerin [Nitrostat] 0.4 mg SUBLINGUAL Q5M PRN #1 bottle 05/16/17 [Rx Confirmed 04/29/18] Fluticasone 0.05% [Flonase Nasal [place]] 1 spray NASAL BID 06/03/17 [History Confirmed 04/29/18] Sertraline HCl [Zoloft] 50 mg PO DAILY 06/24/17 [History Confirmed 04/29/18] budesonide-formoterol HFA 160 mcg-4.5 mcg/actuation aerosol inhaler 2 puff INHALATION Q12H 10/15/17 [History Confirmed 04/29/18] losartan 25 mg tablet 12.5 mg PO QDAY tab 10/28/17 [History Confirmed 04/29/18] amoxicillin 500 mg capsule 500 mg PO TID #21 cap 04/27/18 [Rx Confirmed 04/29/18] PFSH Medical History CVA (cerebral vascular accident) (Acute) Presence of stent in coronary artery (Chronic 05/15/17) HLD (hyperlipidemia) (Chronic) Atherosclerotic heart disease of mentasta coronary artery without angina pectoris (Chronic) Pre-operative cardiovascular examination (Chronic) 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) Diastolic dysfunction (Chronic) LESLY (obstructive sleep apnea) (Chronic) HTN (hypertension) (Chronic) Acute exacerbation of COPD with asthma (Acute) Hyperlipidemia (Chronic) COPD (chronic obstructive pulmonary disease) (Chronic) Obesity (BMI 30.0-34.9) (Chronic) Chest pain (Chronic) Patent foramen ovale (Chronic) Prostate cancer (Chronic) Gastric reflux (Chronic) Asthma (Chronic) Dyspnea (Resolved) URI (upper respiratory infection) (Resolved) Wheezing (Resolved) Pneumonia (Inactive) Sinusitis (Inactive) Surgical History History of prostate surgery (Acute) Postsurgical percutaneous transluminal coronary angioplasty (PTCA) status (Chronic 05/15/17) History of left heart catheterization (LHC) (Chronic 05/15/17) History of vasectomy (Chronic) Family History Father Hypertension Prostate cancer Mother CAD (coronary artery disease) Social History household members: spouse housing: house Smoking Status: Heavy Smoker (>10/day) how long ago did patient quit smokin second hand exposure: Yes alcohol intake: current alcohol intake frequency: a few times a month substance use type: does not use caffeine: Yes what type of physical activity do you participate in: none frequency: does not exercise seatbelt use: always HPI HPI HPI: MACI HOWARD, is a 62 M who presents to the office today for possible silent reflux. The patient's complaints are a productive cough and hoarseness with sore throat. The patient reports that he wakes up with a sore throat and productive cough every morning. He says that the cough worsens throughout the day and it is productive. The patient reports that he does not have any fevers or chills and he is worked up extensively for asthma. The patient also reports he has had nasal and ear surgery by Dr. Eli. The patient says he was started on Protonix 5-6 years ago and does not have any acid reflux symptoms. He had an EGD at that time by Dr. Sotelo. ROS General General: Yes fatigue; no weight change Cardio Cardiovascular: Yes high blood pressure and heart stent; no murmur, pacemaker, heart disease, atrial fibrillation, heart attack, palpitations, shortness of breat with exertion or chest pain Psych Psychiatric: No depression or anxiety Resp Respiratory: Yes shortness of breath, Yes sleep apnea, Yes cough, No COPD, No asthma, No emphysema, No wheezing Gastro Gastrointestinal: No abdominal pain, No nausea or vomiting, No diarrhea, No constipation, No blood in stool, Yes acid reflux, No hemorrhoids, No ulcers, No gallbladder problem, No black,tarry stools Ramon Hematologic: Yes blood thinners Exam Const General: cooperative Orientation: alert, oriented x3 Resp Effort AND Inspection: normal respiratory effort Auscultation: clear to auscultation bilaterally Cardio Rate: regular rate Rhythm: regular rhythm Heart Sounds: no murmurs GI Inspection: non-distended Palpation: soft, nontender Assessment AND Plan Problems 1. Gastric reflux K21.9 Plan 1. The patient reports that he has acid reflux and has been on Protonix with no symptoms for the past 4 or 5 years. The patient reports that he has had sinus surgery and sees Dr. Eli regularly every few months. He says that he has a lot of drainage and does blow his nose a lot and reports to using CPAP at night. 2. I believe that the patient's symptoms are being caused by postnasal drip. The patient has extensive sinus history and sees Dr. Eli. It makes sense that the patient is having sinus drainage causing vocal cord irritation as well as a productive cough. If the patient had silent reflux I would expect a dry morning cough that would improve throughout the day. I explained that workup of silent reflux would include EGD, upper GI, pH probe. I also explained the treatment would be a Josef fundoplication. 3. At this time the patient would like to see Dr. Eli first and see what his opinion is. If Dr. Eli agrees that this may be silent reflux I will order an EGD with pH probe as well as an upper GI. If Dr. Eli believe this may be from nasal or sinus discharge he would treat accordingly. Gabe Arenas MD Pager: [facility] [address] [place] [address], [address] [place] [address] Office: Coding Level of Care Code Off vis,new,level 3 Diagnoses Gastric reflux K21.9 04/29/18 0953 <Electronically signed by Gabe Arenas MD> Date Gabe Arenas MD Cosigner Signature: Date (if applicable) CC: Gisel Zelaya; Elmo Snow MD PULMONARY VISIT REPORT Observed: 04/23/2018 Status: F Source: [place] 11:[address] [facility] [address] [place] [address] OFFICE VISIT Date of Service: 04/23/18 MR#: [id number] Acct: [id number] Name: MACI HOWARD Rep #: [id number] : 1955 Provider: Gisel Zelaya Age/Sex: 62/M Location: [facility] Status: Signed Assessment AND Plan 1. Uncomplicated asthma, unspecified asthma severity J45.909 Plan Uncontrolled. Obtained a sputum culture today, await results. No change in maintenance medications. Follow up with BWA in 3 mos. Will address culture if positive. Call the office with any new or worsening symptoms. Encouraged Flu vaccination. 2. Gastric reflux K21.9 Plan Has been 3-5 years since last scope. Is on treatment, not sure if continued symptoms. Sending for eval of GERD or possible hiatal hernia, which could be contributing to persistent Asthma exacerbations. Will follow up in 3 mos, to discuss findings and input. Orders Orders: Referrals: 3. LESLY (obstructive sleep apnea) G47.33 Plan Patient is using and benefiting from Pap therapy. No indication for titration study at this time. Continue to encourage weight loss. Contact the office for any new or worsening symptoms in the meantime. Follow-up in 3 mos. 4. Obesity (BMI 30.0-34.9) E66.9 Plan Complicates exam, plan, care and prognosis. Encourage weight loss. May be contributing to reflux/hernia if present. Plan Detail Follow Up 3 Months (BWA) HPI f/u: Chief Complaint: wheezing HPI Comments Details: This patient presents to the office today to follow up on his wheezing. He is ambulatory and on room air. He has not been to the ED/Urgent care for any respiratory illnesses since his last office visit. He has not required any antibiotics or prednisone for breathing troubles. He is compliant with Symbicort 2 puffs twice daily. He reports rinsing his mouth after each use. He denies any medication side effects such as thrush or sore throat. He is also compliant with Flonase daily. He denies any trouble with epistaxis. He has not used his rescue inhaler or nebulizer, as he never found them to be helpful. He is compliant with his CPAP nightly. He denies any nocturia, snoring through the mask, mask leaks or dry mouth. He feels rested with use. He denies any naps or falling asleep easily. Currently, he continues to have constant wheezing, chest tightness and shortness of breath on exertion. He has a daily cough productive of yellow sputum. He reports that prednisone never really seems to help him. The only time he gets relief is when he is on an antibiotic. He denies hemoptysis. He denies fever, chills or body aches. See complete ROS. Complaints report for the past 30 days has been reviewed and shows 100% compliance, average use is 7 hours and 37 minutes per night. Current setting is 15 cm of water. Current AHI is controlled at an average of 0.7 events per hour. Leaks continue to be a significant and constant issue according to the documentation. Intake Vital Signs04/23/18 Height 6 ft 1 in 04/23/18 Weight: 243 lb Intake Visit Reasons: f/u Chief Complaint: Chronic cough Pricing Coordinator Required: No DME Vendor: [employer] Accompanied by: Self Is patient in pain?: No Allergies No Known Allergies Allergy (Verified 04/23/18 08:19) Medications Aspirin 81 mg PO DINNER 12/19/16 [History Confirmed 04/23/18] Atorvastatin Calcium [Lipitor] 20 mg PO DINNER 03/11/17 [History Confirmed 04/23/18] Clopidogrel Bisulfate [Plavix] 75 mg PO DINNER 03/11/17 [History Confirmed 04/23/18] Pantoprazole Sodium [Protonix] 20 mg PO DINNER 03/11/17 [History Confirmed 04/23/18] Albuterol Inhaler [Ventolin Hfa] 1 - 2 puff INHALATION Q4H PRN PRN #1 inhaler 03/12/17 [Rx Confirmed 04/23/18] Albuterol Aerosols [Ventolin Aerosols] 2.5 mg INHALATION Q4H PRN PRN 05/13/17 [History Confirmed 04/23/18] Montelukast [Singulair] 10 mg PO DAILY@1700 #30 tab 05/16/17 [Rx Confirmed 04/23/18] Nitroglycerin [Nitrostat] 0.4 mg SUBLINGUAL Q5M PRN #1 bottle 05/16/17 [Rx Confirmed 04/23/18] Fluticasone 0.05% [Flonase Nasal [place]] 1 spray NASAL BID 06/03/17 [History Confirmed 04/23/18] Sertraline HCl [Zoloft] 50 mg PO DAILY 06/24/17 [History Confirmed 04/23/18] budesonide-formoterol HFA 160 mcg-4.5 mcg/actuation aerosol inhaler 2 puff INHALATION Q12H 10/15/17 [History Confirmed 04/23/18] losartan 25 mg tablet 12.5 mg PO QDAY tab 10/28/17 [History Confirmed 04/23/18] PFSH Medical History Presence of stent in coronary artery (Chronic 05/15/17) Pre-operative cardiovascular examination (Chronic) 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) Diastolic dysfunction (Chronic) LESLY (obstructive sleep apnea) (Chronic) HTN (hypertension) (Chronic) Acute exacerbation of COPD with asthma (Acute) Hyperlipidemia (Chronic) COPD (chronic obstructive pulmonary disease) (Chronic) Obesity (BMI 30.0-34.9) (Chronic) Chest pain (Chronic) Patent foramen ovale (Chronic) Prostate cancer (Chronic) Gastric reflux (Chronic) Asthma (Chronic) CVA (cerebral vascular accident) (Acute) Atherosclerotic heart disease of ment[place] coronary artery without angina pectoris (Chronic) HLD (hyperlipidemia) (Chronic) Dyspnea (Resolved) URI (upper respiratory infection) (Resolved) Wheezing (Resolved) Pneumonia (Inactive) Sinusitis (Inactive) Surgical History History of left heart catheterization (LHC) (Chronic 05/15/17) History of vasectomy (Chronic) Postsurgical percutaneous transluminal coronary angioplasty (PTCA) status (Chronic 05/15/17) Family History Father Hypertension Mother CAD (coronary artery disease) Social History household members: spouse housing: house Smoking Status: Heavy Smoker (>10/day) how long ago did patient quit smokin second hand exposure: Yes alcohol intake: former Review of Systems Const CONSTITUTIONAL: Negative anorexia, body ache, chills, daytime sleepiness, fever(s), night sweats, oral thrush, stops breathing during sleep, weight loss, sleeping in chair, fatigue, weight loss, weight gain, frequent colds, seasonal allergies, other, headache(s) or orthopnea EETM Ear Nose Throat Mouth: Positive hearing normal and post nasal drip; negative hard of hearing, hoarseness, dry mouth in morning, change in vision, itchy eyes, eye pain, swallowing Difficulty, ear pain, nose bleed, headache(s), mouth pain, nasal congestion, nasal discharge, sinus pain, sinus pressure, sore throat or other Cardio Cardiovascular: Negative chest pain, chest pain at rest, chest pain with activity, irregular heart rhythm, edema, shortness of breath when lying down, palpitations, murmur or other Resp Respiratory: Positive as per HPI, shortness of breath shortness of breath: Positive with activity, wheezing, cough cough: Positive productive color: Positive yellow and chest tightness; negative pain with cough, chest congestion, pain on inspiration, inhalers, increase use of rescue inhalers, snoring, apnea or other Gastro Gastrointestional: Negative bloody stools, change in appetite, difficulty swallowing, reflux, hematemesis, melena stool, loose stool, constipation or other Genitourinary: Negative blood in urine, nocturia, pain with urination or other Musc Musculoskeletal: Negative body pain, back pain, neck pain or other Skin/Breast Skin/Breast: Negative dry skin, itching, rash, unusual bruising, breast lump or other Neuro Neurological: Negative restless legs, confusion, weakness or other Psych Psychocological: Negative abnormal sleep pattern, anxiety, thoughts of hurting self/others, hopelessness or other Lymph Lymphatic: Negative easy bleeding, easy bruising, swollen lymph nodes or other Exam Const Constitutional: Positive conversant, cooperative, in no acute respiratory distress, healthy appearing, well developed, well nourished and good hygiene Head Head: Positive normocephalic and atraumatic; negative cyanosis of lips/distal nose Eyes Eye: Positive clear conjunctiva; negative nystagmus or scleral abnormality Ears Ear: Positive hearing normal and external ears normal; negative hard of hearing Nose Nose: Positive external nose normal and no nasal discharge; negative epistaxis Mouth Mouth: Positive post nasal drip, oral mucosae normal, no lesions and crowded posterior oropharynx; negative malodorous breath or oral thrush present Mallampati Score: III: Mallampati Score Neck Neck: Positive normal visual inspection, full ROM and trachea midline; negative lymphadenopathy, JVD or tender Chest Wall Chest: Positive normal inspection of the chest and symmetric chest movement; negative increased A/P diameter Resp lung sounds: Positive diminished, wheezes, rhonchi, normal expiratory time and normal respiratory effort; negative rales, dullness to percussion or wheeze present on forced exhalation Cardio Cardiac: Positive regular rate, regular rhythm, S1 normal and S2 normal; negative murmur GI GI: Positive normal to inspection; negative distended Genitourinary: Positive deferred Musc Musculoskeletal: Positive steady gait and ROM normal; negative kyphosis or scoliosis Skin Pulmonary Skin Exam: Positive intact; negative rash or lesion Pulses Pulse: Yes pulses normal x4 extremities Extremities Extremities: Yes capillary refill normal, No clubbing, No cyanosis, No edema Neuro Neurologic: Yes conversant, Yes no focal neuro deficits, Yes normal concentration, Yes understands questions, Yes cooperative, Yes normal cognition, Yes normal coordination Lymph Lymphatic: No lymphadenopathy, No tenderness, No cervical adenopathy Psych Appearance: Positive grossly normal, eye contact and well kempt Mental Status: Positive mental status grossly normal Mood: Positive congruent mood Affect: Positive normal affect Coding Level of Care Code Off vis,est,level 4 Diagnoses Uncomplicated asthma, unspecified asthma severity J45.909 Asthma severity: unspecified severity Asthma complication type: uncomplicated Gastric reflux K21.9 LESLY (obstructive sleep apnea) G47.33 Obesity (BMI 30.0-34.9) E66.9 04/23/18 1128 <Electronically signed by Gisel LARA> Date Gisel LARA Cosigner Signature: Date (if applicable) CC: Elmo Snow MD Observed: 04/23/2018 Status: F Source: [place] CULTURE, SPUT[place] 9:00 AM [facility] Gram Stain Acceptable Specimen? Yes (<25 Epithelial cells per/lpf) Gram Stain 2+ White Blood Cells 1+ Epithelial cells 4+ Gram negative rods 2+ Gram positive cocci Resp. Culture Ampicillin can be used for Beta-Lactamase negative isolates. Trimeth/Sulfa, Chloramphenicol, Cefotaxime, Ciprofloxacin, Amoxicillin/Clavulanic Acid,and Oral 2nd/3rd Generation Cephlosporins are effective against both Beta-Lactamase positive and Beta-Lactamase negative isolates. Mixed normal respiratory christofer. No Streptococcus pneumoniae, beta-hemolytic Streptococcus or Staphylococcus aureus isolated. ORGANISM 1: Haemophilus influenzae Amount Growth 3+ Beta Lactamase Negative Performed By: #### [id number] #### [facility] [address] [place] [address]. [place], [address] STRESS REPORT Observed: 04/14/2018 Status: F Source: [place] 1:28 PM [facility] [address] [place] [id number] MR#: [id number] Acct: [id number] Name: MACI HOWARD Rep #: [id number] : 1955 62 From: Marvin Llanos MD Primary Care: Elmo Snow MD Status: REG CLI Ordering Dr: Raman Li Stress Test Report Date: 2017 Procedure: Pharmacologic stress nuclear imaging study Indications: Shortness of breath/dyspnea on exertion: CAD; PCI Consent: Per the patient Procedure: The patient underwent pharmacologic (Regadenoson) evaluation with a peak heart rate of 85 beats per minute (54 predicted maximal heart rate) and a peak blood pressure of 132/86 mmHg. The baseline ECG demonstrated sinus bradycardia; nonspecific T-wave abnormality. The peak pharmacologic ECG demonstrated continued nonspecific T-wave abnormality. There were occasional PVCs pretest and during recovery. There was no complaint of chest discomfort during pharmacologic infusion or recovery. The examination was discontinued secondary to completion of protocol. Impression: 1. Pharmacologic (Regadenoson) evaluation 2. Peak pharmacologic ECG with continued nonspecific T-wave abnormality. 3. Were occasional PVCs pretest and during recovery 4. Nuclear images pending Myocardial perfusion imaging study: Technique: The patient was injected with 14.6 millicuries of technetium 99m Cardiolite and subsequently rest SPECT Cardiolite nuclear imaging was obtained in the horizontal long, vertical long, and short axis views. The patient underwent pharmacologic (Regadenoson) evaluation with a peak heart rate of 85 beats per minute (54 % percent predicted maximal heart rate) and a peak blood pressure of 132/86 mmHg. The patient was injected with 44.8 millicuries of technetium 99m Cardiolite and subsequently stress SPECT Cardiolite nuclear imaging was obtained in the horizontal long, vertical long, and short axis views. A gated Cardiolite study at peak stress was obtained. Interpretation: Rest and stress SPECT Cardiolite nuclear imaging status post realignment, normalization, and attenuation correction demonstrate relative uniform tracer uptake and myocardial perfusion appearing within normal limits. There is end systolic thickening and brightening. The gated Cardiolite study demonstrates myocardial thickening and inward wall motion. The reported LVEF is 56 %. Impression: 1. Rest and stress SPECT Cardiolite nuclear imaging demonstrate relative uniform tracer uptake and myocardial perfusion appearing within normal limits. 2. The gated Cardiolite study reports an LVEF of 56 %. This note was generated with [employer] software. It may contain incorrect words, spelling, and punctuation that were not noted in checking the note before signing. 04/14/188 <Electronically signed by Marvin Llanos MD> Date Marvin Llanos MD CC: Elmo Snow MD; Marvin Llanos MD Date Dictated: 04/14/181323 Date Transcribed: 04/14/181323 Broadcast Transmitter Operator: PM Signed CARDIOLOGY VISIT Observed: 04/06/2018 Status: F Source: [place] REPORT 9:54 AM [facility] [address] [place] [address]. [address] [place] [address] OFFICE VISIT Date of Service: 04/06/18 MR#: [id number] Acct: [id number] Name: MACI HOWARD Rep #: [id number] : 1955 Provider: Marvin Llanos MD Age/Sex: 62/M Location: [facility] Status: Signed HPI HPI Details: MACI HOWARD, is a 62 M who presents to the office today for for outpatient cardiovascular follow-up. His main concern continues to be his shortness of breath and dyspnea. He states he has been evaluated by 2 different pulmonology groups, one at [facility] and one at [facility], with findings of his underlying COPD, obstructive sleep apnea, and concerns of allergies . He notes when he exerts himself he could become short of breath and dyspneic. He denies associated chest discomfort. There is been no orthopnea or PND or worsening peripheral pitting edema. There has been no near syncope or syncope. He is less than a year since his previous invasive cardiovascular evaluation leading to PCI of his LAD. His RCA at that time underwent FFR which was negative. He is required no additional cardiovascular testing since that time peer Intake Vital Signs04/06/18 Height 6 ft 1 in 04/06/18 Weight: 240 lb 04/06/18 Body Mass Index (BMI) 31.6 04/06/18 Blood Pressure 126/88 Intake Visit Reasons: 1 Y FU Allergies No Known Allergies Allergy (Verified 04/06/18 08:34) Medications Aspirin 81 mg PO DINNER 12/19/16 [History Confirmed 04/06/18] Atorvastatin Calcium [Lipitor] 20 mg PO DINNER 03/11/17 [History Confirmed 04/06/18] Clopidogrel Bisulfate [Plavix] 75 mg PO DINNER 03/11/17 [History Confirmed 04/06/18] Pantoprazole Sodium [Protonix] 20 mg PO DINNER 03/11/17 [History Confirmed 04/06/18] Albuterol Inhaler [Ventolin Hfa] 1 - 2 puff INHALATION Q4H PRN PRN #1 inhaler 03/12/17 [Rx Confirmed 04/06/18] Albuterol Aerosols [Ventolin Aerosols] 2.5 mg INHALATION Q4H PRN PRN 05/13/17 [History Confirmed 04/06/18] Montelukast [Singulair] 10 mg PO DAILY@1700 #30 tab 05/16/17 [Rx Confirmed 04/06/18] Nitroglycerin [Nitrostat] 0.4 mg SUBLINGUAL Q5M PRN #1 bottle 05/16/17 [Rx Confirmed 04/06/18] Fluticasone 0.05% [Flonase Nasal [place]] 1 spray NASAL BID 06/03/17 [History Confirmed 04/06/18] Sertraline HCl [Zoloft] 50 mg PO DAILY 06/24/17 [History Confirmed 04/06/18] budesonide-formoterol HFA 160 mcg-4.5 mcg/actuation aerosol inhaler 2 puff INHALATION Q12H 10/15/17 [History Confirmed 04/06/18] losartan 25 mg tablet 12.5 mg PO QDAY tab 10/28/17 [History Confirmed 04/06/18] PFSH Medical History Presence of stent in coronary artery (Chronic 05/15/17) Pre-operative cardiovascular examination (Chronic) 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) Diastolic dysfunction (Chronic) LESLY (obstructive sleep apnea) (Chronic) HTN (hypertension) (Chronic) Acute exacerbation of COPD with asthma (Acute) Hyperlipidemia (Chronic) COPD (chronic obstructive pulmonary disease) (Chronic) Obesity (BMI 30.0-34.9) (Chronic) Chest pain (Chronic) Patent foramen ovale (Chronic) Prostate cancer (Chronic) Gastric reflux (Chronic) Asthma (Chronic) CVA (cerebral vascular accident) (Acute) Atherosclerotic heart disease of [place]asta coronary artery without angina pectoris (Chronic) HLD (hyperlipidemia) (Chronic) Dyspnea (Resolved) URI (upper respiratory infection) (Resolved) Wheezing (Resolved) Pneumonia (Inactive) Sinusitis (Inactive) Surgical History History of left heart catheterization (LHC) (Chronic 05/15/17) History of vasectomy (Chronic) Postsurgical percutaneous transluminal coronary angioplasty (PTCA) status (Chronic 05/15/17) Family History Father Hypertension Mother CAD (coronary artery disease) Social History household members: spouse housing: house Smoking Status: Heavy Smoker (>10/day) how long ago did patient quit smokin second hand exposure: Yes alcohol intake: former ROS Const Const: Negative for fatigue, weakness, weight gain, weight loss, frequent falls or excessive sweating Eyes Eyes: Negative for change in vision, blurry vision or transient loss of vision ENT ENT: Negative for dizziness or balance problems Cardio Chest Pain: No Palpitations: No Edema: None Muscle aches with walking: None Resp Respiratory: Positive for SOB with activity (continues) and Cough (productive, thick yellow sputum); negative for SOB at rest GI GI: Negative vomiting or vomiting blood/hematemesis : Negative for hematuria Musc Musc: Negative for balance problems, muscle aches/ myalgia, muscle weakness or joint pain Skin Skin: Negative non-healing lesions or rash Neuro Neuro: Positive for lightheadedness (in the am, after eats resolves); negative for weakness, blurry vision, dizziness, frequent falls or orthostatic symptoms Ramon Hematologic/Lymphatic: Negative for easy bleeding Endo Endo: Negative for fatigue or excessive sweating Psych Psych: Negative for anxiety or depression Allergy Allergy/Immunology: Negative for hives, Negative for rash Cardiology Exam Const Appearance: cooperative, healthy appearing, comfortable, no acute distress and well groomed Nutritional Appearance: overweight Orientation: alert, awake and oriented x3 Head Head: normal to inspection, normocephalic and atraumatic Ears: hearing grossly normal bilaterally Nose: external nose normal Face and Sinus: face symmetric Mouth: oral mucosae normal Teeth and gingiva: fair dentition Eyes Eyelids: eyelids normal Conjunctivae: conjunctivae normal Pupils: PERRL EOM: EOM intact bilaterally Neck Neck: no JVD, normal visual inspection and full ROM Carotids: normal carotid upstroke Chest Chest inspection: normal inspection of the chest and normal respiratory effort Auscultation: Bilateral: Inspiratory Wheezes, Expiratory Wheezes, Rhonchi Cardio Palpation: normal PMI Rate: regular rate Rhythm: regular rhythm Heart sounds: S1 normal and S2 normal; negative rub or gallop GI GI: normal to inspection, soft and bowel sounds present Neuro General: alert, awake and oriented x3 Skin Skin: no rashes or lesions noted Extremities Pulses: Normal: Right Posterior Tibial Pulse, Left Posterior Tibial Pulse, Right Radial Pulse, Left Radial Pulse Lower Extremity Edema: None: Bilateral Psych Psychological: normal affect Supplemental Info He did have a transthoracic echocardiogram on 04/09/2017. Based upon the 2D echocardiographic and contrast enhanced images obtained there appears to be grossly normal left ventricular size, wall motion, and systolic fucntion. The estimated ejection fraction is 55 %. Trivial mitral valve insufficiency. Trivial tricuspid valve insufficiency. Mild (1+) pulmonic valve insufficiency. Right ventricular systolic pressure estimated to be 24 mmHg. Transmitral doppler flow suggestive of impaired relaxation of left ventricle He had a stress echocardiogram performed on 05/14/2017. This was a technically difficult study and required IV contrast. Per the report it was considered to be negative for ischemia by her spine ECG and echocardiographic criteria. However there was a comment based upon the technically difficult studies that there is decreased sensitivity due to poor echo windows. The underwent diagnostic cardiac catheterization on 05/15/2017. DOMINANCE: Right Dominant LEFT HEART ASSESSMENT Left Ventricular Ejection Fraction: by LV Gram 65 % Normal LV wall motion Normal Left Ventricular systolic function Eleated Left Ventricular End Diastolic Pressure LVEDP: 17 mmHg RIGHT HEART ASSESSMENT Thermal CO: 5.2 Thermal Cl: 2.26 Patricia CO: 6.31 Patricia CI: 2.74 PW: 5/5 3 PA: 24/5 12 RV: 23/-i 6 RA: 7/ 4 PVR: 138 SVR: 1354 Mitral Valve Area: >3.50 Mitral Valve index: 1.52 Mitral VaIe Mean Gradient: 3 Right Heart pressures - normal Intracardiac shunting: Calculated Qp/Qs: 1.2: considered non hemodynamically significant LEFT MAIN: Mild calcification LEFT ANTERIOR DECENDING ARTERY: PROX LAD: Mild calcification MID LAD: 85 % Stenosis CIRCUMFLEX ARTERY: PROX CIRC: Mild calcification, Mild luminal irregularities RIGHT CORONARY ARTERY: Mild luminal irregularities PROX RCA: Hazy: 50 % Stenosis VALVE FINDINGS: Normal Aortic Valve function Normal Mitral VaIe function AORTIC ROOT: Angiographically normal He underwent PCI on 05/15/2017 of the LAD with a 3.0 28 Promus stent. He also underwent FFR of the RCA which was considered negative at 0.96 Assessment AND Plan 1. Atherosclerosis of mentasta coronary artery 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 angina pectoris I25.10 S/P PTCA/SHANIQUA to mid LAD with negative FFR of RCA in April 2017; Plan At the present time he appears to be without ongoing chest discomfort. It is unclear whether his shortness of breath and dyspnea, especially with exertion, is related to CAD and angina pectoris [place] versus related to his underlying pulmonary disease process. From a cardiac standpoint it was felt reasonable that he not only continue medical therapy but be considered for evaluation with repeat noninvasive studies. Based upon his challenges with respect to exertion, his challenges with respect imaging quality, his challenges with respect to not tolerating agent such as adenosine well because of his marked shortness of breath and dyspnea that he experiences with such agents, he may be a candidate for a pharmacologic/dobutamine stress nuclear study. 2. Presence of stent in coronary artery Z95.5 PTCA: PTCA/SHANIQUA of the mid LAD, FFR neg of RCA 05/15/2017 Plan He did have previous PCI as noted above. This is going to be reassessed with his upcoming noninvasive evaluation peer Orders Orders: 3. Hyperlipidemia, unspecified hyperlipidemia type E78.5 Plan He will continue medical management and follow-up as deemed appropriate. 4. Essential hypertension I10 Plan His blood pressure appears to be reasonably well-controlled. He will continue medical management 5. Patent foramen ovale Q21.1 Plan He did undergo evaluation with his cardiac catheterization last year. Based upon the cardiac catheterization findings he had a Qp/Qs ratio 1.2 which was considered nonhemodynamically significant. 6. Chronic obstructive pulmonary disease, unspecified COPD type J44.9 Plan He does have significant underlying COPD. 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 This may be the etiology of his shortness of breath and dyspnea versus a cardiac etiology. However he will be reassessed as noted above. 7. Shortness of breath R06.02 Plan He does have progressive shortness of breath and dyspnea. Again he will be reassessed as noted above. Orders Orders: Plan Detail Additional Comments Thank you for allowing me to participate in the care of your patient. Please don't hesitate to call if any issues arise. This note was generated using a voice recognition system and there may be incorrect words, spelling or punctuation that were not noted when reviewing the office note prior to saving. Follow Up 6 Months (PFM) Coding Level of Care Code Off vis,est,level 4 Diagnoses Atherosclerosis of mentasta coronary artery 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 angina pectoris I25.10 Presence of stent in coronary artery Z95.5 Hyperlipidemia, unspecified hyperlipidemia type E78.5 Hyperlipidemia type: unspecified Essential hypertension I10 Hypertension type: essential hypertension Patent foramen ovale Q21.1 Chronic obstructive pulmonary disease, unspecified COPD type J44.9 COPD type: unspecified COPD Shortness of breath R06.02 Coding Level of Care Code Off vis,est,level 4 Diagnoses Atherosclerosis of mentasta coronary artery 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 angina pectoris I25.10 Presence of stent in coronary artery Z95.5 Hyperlipidemia, unspecified hyperlipidemia type E78.5 Hyperlipidemia type: unspecified Essential hypertension I10 Hypertension type: essential hypertension Patent foramen ovale Q21.1 Chronic obstructive pulmonary disease, unspecified COPD type J44.9 COPD type: unspecified COPD Shortness of breath R06.02 04/06/18 0954 <Electronically signed by Marvin Llanos MD> Date Marvin Llanos MD Cosigner Signature: Date (if applicable) CC: Elmo Snow MD FECAL OCCULT BLD Collected: 04/06/2018 Status: F Source: [place] TST 7:41 AM [facility] REPOSITORY TYPE CODE TESTS RESULT OUT OF REFERENCE UNITS RANGE LAB IFO Negative Immuno Negative FOB Result Comment: This test was developed and its performance characteristics determined by [facility]'s Dre Patel [facility] Pathology [facility] Laboratory [facility] [place] [facility] It has not been cleared or approved by the FDA. [facility] is regulated under CLIA as qualified to perform high-complexity testing. This test is used for clinical purposes. It should not be regarded as investigational or for research. Performed By: #### IFOBT #### [id number] [place], [place] [address] Observed: 02/26/2018 Status: F Source: [place] URINE CULTURE 10:08 [facility] REPOSITORY Sp. Request/Comment: - Specimen received in preservative Culture Result - No growth (<1,000 CFU/ml) Performed By: #### URCUL #### [facility] [address] [place], [place] [address] PROGRESS Observed: 02/26/2018 Status: COMPLETED Source: [place] 10:05 AM [facility] REPOSITORY HNO ID: [id number] Author: Ovi Butcher (Pa) Service: (none) Author Type: Physician Maintenance Shop Technician Type: Progress Notes Filed: 02/26/2018 10:46 AM Note Text: [facility] Urological and Kidney [place] CC: Prostate Cancer Follow -up HPI Maci Howard is a 62 year old male, who has a history of Prostate Cancer and s/p RP 10/31/2014, doing very well with still undetectable PSA PSA today <0.03 Patient states no LUTS today LAB: PSA: PSA (ng/mL) Date Value 02/23/2018 0.03 08/27/2017 <0.03 02/15/2017 <0.03 07/16/2016 <0.03 12/21/2015 <0.03 12/10/2014 <0.03 07/30/2014 6.85 12/25/2013 7.07 06/23/2013 6.80 11/24/2012 6.90 sCr: Creatinine (mg/dL) Date Value 11/23/2016 0.99 07/22/2015 1.09 11/01/2014 0.98 10/31/2014 0.86 10/18/2014 1.01 06/23/2013 0.98 Creatinine, Whole Blood (iSTAT) (mg/dL) Date Value 05/24/2016 1.00 IMAGING: No imaging today ALLERGIES: Parafon Forte Dsc [Chlorzoxazone] CURRENT MEDICATIONS: Current Outpatient Prescriptions: budesonide-formoterol (SYMBICORT) 160-4.5 mcg/actuation inhaler Inhale 2 Puffs as instructed twice daily. Disp: 1 Inhaler Rfl: [address] (PROTONIX) 20 mg tablet TAKE 1 TABLET DAILY BEFORE BREAKFAST. TAKE ON AN EMPTYSTOMACH, 1/2 HOUR BEFORE A MEAL. Disp: 90 tablet Rfl: 3 losartan (COZAAR) 25 mg tablet Take 0.5 tablets by mouth once daily. Disp: Rfl: 0 sertraline (ZOLOFT) 50 mg tablet Take 1 tablet by mouth once daily. Disp: 30 tablet Rfl: 5 fluticasone (FLONASE) 50 mcg/actuation nasal spray Use 2 Sprays in each nostril once daily. Rinse mouth after use. Disp: 1 Bottle Rfl: 2 montelukast (SINGULAIR) 10 mg tablet Take 1 tablet by mouth daily at bedtime. Disp: Rfl: 0 NITROGLYCERIN SUBLINGUAL Dissolve under the tongue as needed. Disp: Rfl: CPAP Disp: Rfl: clopidogrel (PLAVIX) 75 mg tablet Take 1 tablet by mouth once daily. Disp: 90 tablet Rfl: 3 atorvastatin (LIPITOR) 20 mg tablet TAKE 1 TABLET DAILY Disp: 90 tablet Rfl: 3 Albuterol Sulfate 0.63 mg/3 mL nebulizer solution Inhale contents of 1 vial in nebulizer every 4 hours as needed for wheezing Disp: Rfl: 3 albuterol HFA (VENTOLIN HFA) 90 mcg/actuation inhaler Inhale 2 Puffs as instructed every 4 hours as needed. Disp: 1 Inhaler Rfl: 3 metoprolol succinate ER (TOPROL XL) 25 mg 24 hr tablet Take 1 tablet by mouth once daily. (Patient taking differently: Take 25 mg by mouth once daily. Taking 12.5mg daily ) Disp: 90 tablet Rfl: 3 aspirin 81 mg chewable tablet Take 81 mg by mouth once daily. Disp: Rfl: No current facility-administered medications for this visit. REVIEW OF SYSTEMS GENERAL:SEE HPI, No weight loss, malaise or fevers. GENITOURINARY: No history of dysuria, frequency or incontinence The remainder of the ROS was negative. PHYSICAL EXAMINATION Blood pressure 126/82, pulse 76, weight 108.9 kg (240 lb). General appearance: Well appearing, alert, in no acute distress, well-hydrated, well nourished Abdomen: Normal abdominal exam, Abdomen soft, non-tender. Bowel sounds normal. No masses, organomegaly IMPRESSION/PLAN: > History of Prostate Cancer s/p RP 10/31/2014 > PSA - <0.03 today > 6 months for PSA, No Appointment Needed > 1 year Appointment with PSA prior SHIV Santiago, [place], PABebaC Electronically signed CNOV Observed: 02/26/2018 Status: COMPLETED Source: [place] 9:00 AM [facility] REPOSITORY Office Visit (UROLWS) MACI HOWARD ([id number]) 1955 M Date Time Provider Department 02/26/18 9:00 AM OVI BUTCHER) UROLWS During your visit today, we recorded the following information about you: Pulse Blood pressure Weight 76/minute 126/82 108.9 kg BOSSMAN Ledezma 02/26/2018 10:46 AM Signed [facility] [place] CC: Prostate Cancer Follow -up HPI Maci Howard is a 62 year old male, who has a history of Prostate Cancer and s/p RP 10/31/2014, doing very well with still undetectable PSA PSA today <0.03 Patient states no LUTS today LAB: PSA: PSA (ng/mL) Date Value 02/23/2018 0.03 08/27/2017 <0.03 02/15/2017 <0.03 07/16/2016 <0.03 12/21/2015 <0.03 12/10/2014 <0.03 07/30/2014 6.85 12/25/2013 7.07 06/23/2013 6.80 11/24/2012 6.90 sCr: Creatinine (mg/dL) Date Value 11/23/2016 0.99 07/22/2015 1.09 11/01/2014 0.98 10/31/2014 0.86 10/18/2014 1.01 06/23/2013 0.98 Creatinine, Whole Blood (iSTAT) (mg/dL) Date Value 05/24/2016 1.00 IMAGING: No imaging today ALLERGIES: Parafon Forte Dsc [Chlorzoxazone] CURRENT MEDICATIONS: Current Outpatient Prescriptions: budesonide-formoterol (SYMBICORT) 160-4.5 mcg/actuation inhaler Inhale 2 Puffs as instructed twice daily. Disp: 1 Inhaler Rfl: [address] (PROTONIX) 20 mg tablet TAKE 1 TABLET DAILY BEFORE BREAKFAST. TAKE ON AN EMPTYSTOMACH, 1/2 HOUR BEFORE A MEAL. Disp: 90 tablet Rfl: 3 losartan (COZAAR) 25 mg tablet Take 0.5 tablets by mouth once daily. Disp: Rfl: 0 sertraline (ZOLOFT) 50 mg tablet Take 1 tablet by mouth once daily. Disp: 30 tablet Rfl: 5 fluticasone (FLONASE) 50 mcg/actuation nasal spray Use 2 Sprays in each nostril once daily. Rinse mouth after use. Disp: 1 Bottle Rfl: 2 montelukast (SINGULAIR) 10 mg tablet Take 1 tablet by mouth daily at bedtime. Disp: Rfl: 0 NITROGLYCERIN SUBLINGUAL Dissolve under the tongue as needed. Disp: Rfl: CPAP Disp: Rfl: clopidogrel (PLAVIX) 75 mg tablet Take 1 tablet by mouth once daily. Disp: 90 tablet Rfl: 3 atorvastatin (LIPITOR) 20 mg tablet TAKE 1 TABLET DAILY Disp: 90 tablet Rfl: 3 Albuterol Sulfate 0.63 mg/3 mL nebulizer solution Inhale contents of 1 vial in nebulizer every 4 hours as needed for wheezing Disp: Rfl: 3 albuterol HFA (VENTOLIN HFA) 90 mcg/actuation inhaler Inhale 2 Puffs as instructed every 4 hours as needed. Disp: 1 Inhaler Rfl: 3 metoprolol succinate ER (TOPROL XL) 25 mg 24 hr tablet Take 1 tablet by mouth once daily. (Patient taking differently: Take 25 mg by mouth once daily. Taking 12.5mg daily ) Disp: 90 tablet Rfl: 3 aspirin 81 mg chewable tablet Take 81 mg by mouth once daily. Disp: Rfl: No current facility-administered medications for this visit. REVIEW OF SYSTEMS GENERAL:SEE HPI, No weight loss, malaise or fevers. GENITOURINARY: No history of dysuria, frequency or incontinence The remainder of the ROS was negative. PHYSICAL EXAMINATION Blood pressure 126/82, pulse 76, weight 108.9 kg (240 lb). General appearance: Well appearing, alert, in no acute distress, well-hydrated, well nourished Abdomen: Normal abdominal exam, Abdomen soft, non-tender. Bowel sounds normal. No masses, organomegaly IMPRESSION/PLAN: > History of Prostate Cancer s/p RP 10/31/2014 > PSA - <0.03 today > 6 months for PSA, No Appointment Needed > 1 year Appointment with PSA prior SHIV Santiago, [place], PABebaC Electronically signed Referring Provider: VILMA SNOW) [[id number]] Allergies As of Date: 02/26/2018 Noted Allergy Reaction LOURDES PALOMO DSC (CHLORZOXAZONE) 03/11/2006 Date Reviewed: 02/26/2018 Reviewed by: Randa Goel Ma - Fully Assessed Reason for Visit: Follow Up [171] Prostate Cancer [590] Primary Visit Diagnosis:Prostate cancer (HCC) [C61] Order(s):UA DIP, URINE (POC) [6278347] Order #: [id number]. #:[id number] URINE CULTURE [SQURCUL] Order #: [id number] PSA/PROSTSPECAG DIAG [SQPSA] Order #: [id number] FUTURE PSA/PROSTSPECAG DIAG [SQPSA] Order #: [id number] FUTURE Prescriptions as of 02/26/2018 Sig: BUDESONIDE-FORMOTEROL HFA 160* Inhale 2 Puffs as instructed * PANTOPRAZOLE 20 MG TABLET,DEL* TAKE 1 TABLET DAILY BEFORE BR* LOSARTAN 25 MG TABLET Take 0.5 tablets by mouth onc* SERTRALINE 50 MG TABLET Take 1 tablet by mouth once d* FLUTICASONE 50 MCG/ACTUATION * Use 2 Sprays in each nostril * MONTELUKAST 10 MG TABLET Take 1 tablet by mouth daily * NITROGLYCERIN SUBLINGUAL Dissolve under the tongue as* CPAP CLOPIDOGREL 75 MG TABLET Take 1 tablet by mouth once d* ATORVASTATIN 20 MG TABLET TAKE 1 TABLET DAILY ALBUTEROL SULFATE 0.63 MG/3 M* Inhale contents of 1 vial in * ALBUTEROL SULFATE HFA 90 MCG/* Inhale 2 Puffs as instructed * METOPROLOL SUCCINATE ER 25 MG* Take 1 tablet by mouth once d* Patient taking differently: Take 25 mg by mouth once jose maria* ASPIRIN 81 MG CHEWABLE TABLET Take 81 mg by mouth once jose maria* Problem List As Of Date 02/26/2018 Noted Resolved DYSPHAGIA [787.2] Esophagitis, unspecified [K20.9] INVALID FOR* More... DIAPHRAGMATIC HERNIA [K44.9] INVALID FOR* FAMILY HX PROSTATIC MALIGNANCY [Z80.42] INVALID FOR* Elevated prostate specific antigen (PSA) [R97.2*INVALID FOR* More... Other and unspecified hyperlipidemia [E78.5] INVALID FOR*12/10/2017 More... Prostate cancer [C61] INVALID FOR* HLD (hyperlipidemia) [E78.5] INVALID FOR* GERD (gastroesophageal reflux disease) [K21.9] INVALID FOR* Hypertensive cardiovascular disease [I11.9] INVALID FOR* Stroke (HCC) [I63.9] INVALID FOR* Chronic anticoagulation [Z79.01] INVALID FOR*09/10/2017 Sleep apnea [G47.30] INVALID FOR*06/02/2017 PFO (patent foramen ovale) [Q21.1] INVALID FOR* LESLY on CPAP [G47.33, Z99.89] INVALID FOR* Cerebrovascular accident (CVA) due to embolism *INVALID FOR* LESLY (obstructive sleep apnea) [G47.33] 06/02/2017 More... History of CVA (cerebrovascular accident) [Z86.*INVALID FOR* More... CAD (coronary artery disease) [I25.10] More... Cough [R05] INVALID FOR*12/10/2017 SOB (shortness of breath) [R06.02] INVALID FOR* Wheezing [R06.2] INVALID FOR*12/10/2017 Depression [F32.9] Disposition: Return in about 1 year (around 02/26/2019). Follow-up and Disposition History Recorded Encounter Status:Closed by OVI BUTCHER PA-C on 02/26/18 PSA, DIAGNOSTIC Collected: 02/23/2018 Status: F Source: [place] 7:38 AM [facility] REPOSITORY TYPE CODE TESTS RESULT OUT OF REFERENCE UNITS RANGE LAB PSA 0.00-2.59 ng/mL PSA, Diagnostic 0.03 Result Comment: Total PSA test methodology used is the Electrochemiluminescence Immunoassay. Performed By: #### PSA #### [facility] [address] [place], [place] [address] PROGRESS Observed: 12/10/2017 Status: COMPLETED Source: [place] 8:04 AM [facility] REPOSITORY HNO ID: [id number] Author: Vilma Espinoza) Gwendolyn Service: (none) Author Type: Physician Type: Progress Notes Filed: 12/10/2017 8:54 AM Note Text: Chief Complaint Patient presents with: F/U 3 Month: routine - requesting 12.5 mg metoprolol HPI Maci Howard is a 62 year old male who presents here today for 3 month follow up. Since last OV, patient feels that he is turning the corner in regards to his cough, SOB and wheezing. Thinks that his surgery on sinuses performed back in June may be helping finally and has been taking medications regularly without side effects. Still using CPAP nightly for LESLY. Discussed pathology results from bronchoscopy which shows likely asthma, but is distraught he has not heard back from pulmonology as they promised. GERD: well controlled with protonix. CAD: denies new angina symptoms. Frustrated with easy bruising, but discussed continued need for plavix and ASA due to drug eluting stent placement. Will need to discuss further with cardiology. Depression/anxiety: well controlled on zoloft. Past medical history, appointments, medications, allergies reviewed. Previous Medical History PAST MEDICAL HISTORY Diagnosis Date - Anxiety - Asthma childhood - CAD (coronary artery disease) s/p SHANIQUA to [facility], seeing Dr. Lalnos - Depression - Diaphragmatic hernia without mention of obstruction or gangrene - Dyslipidemia - Dysphagia - Dyspnea With wheezing. Spirometry w/o obstruction 02/01 and 06/03. Dr. Jewell 08/2017. Has seen Dr. Pearl - Esophagitis, unspecified - GERD (gastroesophageal reflux disease) - History of CVA (cerebrovascular accident) 06/20/2014 mild - Obesity (BMI 30.0-34.9) - LESLY (obstructive sleep apnea) Consistently compliant with CPAP. - PFO (patent foramen ovale) - Prostate cancer (HCC) 2012 s/p prostatectomySue Previous Surgical History PAST SURGICAL HISTORY Procedure Laterality Date - EGD W/O OR W/BRUSH/WASH 05/01/2007 EGD - EGD W/O OR W/BRUSH/WASH 03/21/2013 [facility] EGD - PAST SURGICAL HISTORY OF submandibular gland removed - PAST SURGICAL HISTORY OF 10/31/14 Robotic Prostatectomy - PAST SURGICAL HISTORY OF 04/2017 SHANIQUA to [facility] Family History FAMILY HISTORY Problem Relation Age of Onset - Heart Mother CAD. - Hypertension Mother - Cancer Father Prostate cancer. - Other [OTHER] Father Lower lobectomy, not cancerous. - Cancer Paternal Grandfather Prostate Cancer. - Other [OTHER] Other No allergy, asthma, COPD. Patient Allergies ALLERGIES Allergen Reactions - Parafon Forte Dsc [* Current Medications Current Outpatient Prescriptions on File Prior to Visit: budesonide-formoterol (SYMBICORT) 160-4.5 mcg/actuation inhaler Inhale 2 Puffs as instructed twice daily. sertraline (ZOLOFT) 50 mg tablet Take 1 tablet by mouth once daily. fluticasone (FLONASE) 50 mcg/actuation nasal spray Use 2 Sprays in each nostril once daily. Rinse mouth after use. losartan (COZAAR) 25 mg tablet Take 1 tablet by mouth once daily. montelukast (SINGULAIR) 10 mg tablet Take 1 tablet by mouth daily at bedtime. NITROGLYCERIN SUBLINGUAL Dissolve under the tongue as needed. CPAP clopidogrel (PLAVIX) 75 mg tablet Take 1 tablet by mouth once daily. atorvastatin (LIPITOR) 20 mg tablet TAKE 1 TABLET DAILY Albuterol Sulfate 0.63 mg/3 mL nebulizer solution Inhale contents of 1 vial in nebulizer every 4 hours as needed for wheezing pantoprazole DR (PROTONIX) 20 mg tablet TAKE 1 TABLET DAILY BEFORE BREAKFAST. TAKE ON AN EMPTYSTOMACH, 1/2 HOUR BEFORE A MEAL. albuterol HFA (VENTOLIN HFA) 90 mcg/actuation inhaler Inhale 2 Puffs as instructed every 4 hours as needed. metoprolol succinate ER (TOPROL XL) 25 mg 24 hr tablet Take 1 tablet by mouth once daily. (Patient taking differently: Take 25 mg by mouth once daily. Taking 12.5mg daily ) aspirin 81 mg chewable tablet Take 81 mg by mouth once daily. No current facility-administered medications on file prior to visit. 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 Social History Main Topics Smoking status: Former Smoker Packs/day: 1.00 Years: 20.00 Types: Cigarettes Quit date: 08/18/1989 Smokeless status: Former User Types: Snuff Quit date: 01/16/2017 Alcohol use: Yes 4.5 oz/week 3 Cans of Beer (12oz) per week Comment: rare-beer Drug use: No Sexual activity: Yes Partners with: Female control/protection: Vasectomy Social History Narrative [place] 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 Window A/C. No pets in home. Prior owners had cats. Air purifier in LR. Review of Symptoms REVIEW OF SYSTEMS GENERAL: No weight loss, malaise or fevers RESPIRATORY: See HPI CARDIOVASCULAR: Negative for chest pain, leg swelling, hypertension, CHF or palpitations GI: No nausea, vomiting, or diarrhea SKIN: Negative for lesions, rash, and itching EXAM: BP 118/86 Pulse 60 Resp 12 Wt 108.4 kg (239 lb) BMI 31.53 kg/m2 General Appearance: Well appearing, alert, in no acute distress, well-hydrated, well nourished.. Skin: 3 x 0.5 cm abrasion on left thenar eminence without signs of cellulitis. 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 Lungs: Negative findings: normal respiratory rate and rhythm, chest symmetric with normal A/P diameter and no chest deformities noted, Positive findings: rhonchi . Heart: RRR without murmur, gallop, or rubs. No ectopy. Abdomen: Normal abdominal exam, Abdomen soft, non-tender. Bowel sounds normal. No masses, organomegaly. Extremities: No deformities, edema, skin discoloration, clubbing or cyanosis. Good capillary refill. . Health Maintenance List FECAL OCCULT BLOOD due on 02/22/2017 TETANUS due on 03/03/2017 DIABETES SCREEN due on 08/22/2020 LIPID SCREEN due on 12/08/2022 PROSTATE CANCER SCREENING DISCUSSION Completed INFLUENZA Completed HEPATITIS C SCREENING Completed Data reviewed Component Latest Ref Rng AND Units 08/22/2017 12/08/2017 Cholesterol, Total <200 mg/dL 158 Triglyceride <150 mg/dL 74 HDL Cholesterol >39 mg/dL 41 LDL Cholesterol <100 mg/dL 102 (H) Non HDL Cholesterol <130 mg/dL 117 Fasting Time hrs 12 VLDL Cholesterol <30 mg/dL 15 TC:HDL Ratio <5.10 3.85 LDL:HDL Ratio <2.54 2.49 Hemoglobin A1C 4.3 - 5.6 % 5.2 Estimated Average Glucose mg/dL 103 ASSESSMENT/PLAN: 1. Hypertensive heart disease without heart failure - ICD9: 402.90, ICD10: I11.9 (primary diagnosis) - good control - Continue current medication(s) - Encouraged dietary sodium restriction/DASH diet - Recommended regular aerobic exercise. - Reviewed risks of HTN and principles of treatment - Goal of BP <140/90 2. Dyspnea, unspecified type - ICD9: 786.09, ICD10: R06.00 Much improved. Continue current regimen per pulmonology. Follow up in 6 months. 3. Coronary artery disease involving mentasta heart without angina pectoris, unspecified vessel or lesion type - ICD9: 414.01, ICD10: I25.10 Asymptomatic. Will monitor. 4. Cerebrovascular accident (CVA) due to embolism of cerebral artery (HCC) - ICD9: 434.11, ICD10: I63.40 No new signs of stroke. Continue secondary stroke prevention. 5. LESLY on CPAP - ICD9: 327.23, V46.8, ICD10: G47.33, Z99.89 Continue nightly. Working well for patient. 6. Gastroesophageal reflux disease, esophagitis presence not specified - ICD9: 530.81, ICD10: K21.9 - Continue treatment with Protonix 7. Hyperlipidemia, unspecified hyperlipidemia type - ICD9: 272.4, ICD10: E78.5 - good control - Continue current medication. - Encouraged following a low fat, low cholesterol diet. - Discussed the benefits of regular aerobic exercise and weight loss. 8. Prostate cancer (HCC) - ICD9: 185, ICD10: C61 F/u with urology every 6 months as recommended. 9. Screening for colon cancer - ICD9: V76.51, ICD10: Z12.11 - FECAL OCCULT BLOOD TEST 10. Abrasion of left hand, initial encounter - ICD9: 914.0, ICD10: S60.512A Healing well. Advised triple abx ointment and to call with signs of infection. Will update tetanus today. - COMP METABOLIC PANEL - CBC 11. Need for vaccination - ICD9: V05.9, ICD10: Z23 - TETANUS/DIPTHERIA BOOSTER (OVER 7), PF YAZAN Snow MD CNOV Observed: 12/10/2017 Status: COMPLETED Source: [place] 8:00 AM [facility] REPOSITORY Office Visit (FAMPWS) MACI HOWARD ([id number]) 1955 M Date Time Provider Department 12/10/17 8:00 AM VILMA SNOW) FAMPWS During your visit today, we recorded the following information about you: Pulse Respiration Blood pressure Weight 60/minute 12/minute 118/86 108.4 kg Vilma Snow MD 12/10/2017 8:54 AM Signed Chief Complaint Patient presents with: F/U 3 Month: routine - requesting 12.5 mg metoprolol HPI Maci Howard is a 62 year old male who presents here today for 3 month follow up. Since last OV, patient feels that he is turning the corner in regards to his cough, SOB and wheezing. Thinks that his surgery on sinuses performed back in June may be helping finally and has been taking medications regularly without side effects. Still using CPAP nightly for LESLY. Discussed pathology results from bronchoscopy which shows likely asthma, but is distraught he has not heard back from pulmonology as they promised. GERD: well controlled with protonix. CAD: denies new angina symptoms. Frustrated with easy bruising, but discussed continued need for plavix and ASA due to drug eluting stent placement. Will need to discuss further with cardiology. Depression/anxiety: well controlled on zoloft. Past medical history, appointments, medications, allergies reviewed. Previous Medical History PAST MEDICAL HISTORY Diagnosis Date - Anxiety - Asthma childhood - CAD (coronary artery disease) s/p SHANIQUA to LAD, seeing Dr. Llanos - Depression - Diaphragmatic hernia without mention of obstruction or gangrene - Dyslipidemia - Dysphagia - Dyspnea With wheezing. Spirometry w/o obstruction 02/01 and 06/03. Dr. Jewell 08/2017. Has seen Dr. Pearl - Esophagitis, unspecified - GERD (gastroesophageal reflux disease) - History of CVA (cerebrovascular accident) 06/20/2014 mild - Obesity (BMI 30.0-34.9) - LESLY (obstructive sleep apnea) Consistently compliant with CPAP. - PFO (patent foramen ovale) - Prostate cancer (HCC) 2012 s/p prostatectomy, Sue Previous Surgical History PAST SURGICAL HISTORY Procedure Laterality Date - EGD W/O OR W/BRUSH/WASH 05/01/2007 EGD - EGD W/O OR W/BRUSH/WASH 03/21/2013 [facility] EGD - PAST SURGICAL HISTORY OF submandibular gland removed - PAST SURGICAL HISTORY OF 10/31/14 Robotic Prostatectomy - PAST SURGICAL HISTORY OF 04/2017 SHANIQUA to LAD Family History FAMILY HISTORY Problem Relation Age of Onset - Heart Mother CAD. - Hypertension Mother - Cancer Father Prostate cancer. - Other [OTHER] Father Lower lobectomy, ANDquot;not cancerous.ANDquot; - Cancer Paternal Grandfather Prostate Cancer. - Other [OTHER] Other No allergy, asthma, COPD. Patient Allergies ALLERGIES Allergen Reactions - [facility] [* Current Medications Current Outpatient Prescriptions on File Prior to Visit: budesonide-formoterol (SYMBICORT) 160-4.5 mcg/actuation inhaler Inhale 2 Puffs as instructed twice daily. sertraline (ZOLOFT) 50 mg tablet Take 1 tablet by mouth once daily. fluticasone (FLONASE) 50 mcg/actuation nasal spray Use 2 Sprays in each nostril once daily. Rinse mouth after use. losartan (COZAAR) 25 mg tablet Take 1 tablet by mouth once daily. montelukast (SINGULAIR) 10 mg tablet Take 1 tablet by mouth daily at bedtime. NITROGLYCERIN SUBLINGUAL Dissolve under the tongue as needed. CPAP clopidogrel (PLAVIX) 75 mg tablet Take 1 tablet by mouth once daily. atorvastatin (LIPITOR) 20 mg tablet TAKE 1 TABLET DAILY Albuterol Sulfate 0.63 mg/3 mL nebulizer solution Inhale contents of 1 vial in nebulizer every 4 hours as needed for wheezing pantoprazole DR (PROTONIX) 20 mg tablet TAKE 1 TABLET DAILY BEFORE BREAKFAST. TAKE ON AN EMPTYSTOMACH, 1/2 HOUR BEFORE A MEAL. albuterol HFA (VENTOLIN HFA) 90 mcg/actuation inhaler Inhale 2 Puffs as instructed every 4 hours as needed. metoprolol succinate ER (TOPROL XL) 25 mg 24 hr tablet Take 1 tablet by mouth once daily. (Patient taking differently: Take 25 mg by mouth once daily. Taking 12.5mg daily ) aspirin 81 mg chewable tablet Take 81 mg by mouth once daily. No current facility-administered medications on file prior to visit. 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 Social History Main Topics Smoking status: Former Smoker Packs/day: 1.00 Years: 20.00 Types: Cigarettes Quit date: 08/18/1989 Smokeless status: Former User Types: Snuff Quit date: 01/16/2017 Alcohol use: Yes 4.5 oz/week 3 Cans of Beer (12oz) per week Comment: rare-beer Drug use: No Sexual activity: Yes Partners with: Female control/protection: Vasectomy Social History Narrative [place] 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 Window A/C. No pets in home. Prior owners had cats. Air purifier in LR. Review of Symptoms REVIEW OF SYSTEMS GENERAL: No weight loss, malaise or fevers RESPIRATORY: See HPI CARDIOVASCULAR: Negative for chest pain, leg swelling, hypertension, CHF or palpitations GI: No nausea, vomiting, or diarrhea SKIN: Negative for lesions, rash, and itching EXAM: BP 118/86 Pulse 60 Resp 12 Wt 108.4 kg (239 lb) BMI 31.53 kg/m2 General Appearance: Well appearing, alert, in no acute distress, well-hydrated, well nourished.. Skin: 3 x 0.5 cm abrasion on left thenar eminence without signs of cellulitis. 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 Lungs: Negative findings: normal respiratory rate and rhythm, chest symmetric with normal A/P diameter and no chest deformities noted, Positive findings: rhonchi . Heart: RRR without murmur, gallop, or rubs. No ectopy. Abdomen: Normal abdominal exam, Abdomen soft, non-tender. Bowel sounds normal. No masses, organomegaly. Extremities: No deformities, edema, skin discoloration, clubbing or cyanosis. Good capillary refill. . Health Maintenance List FECAL OCCULT BLOOD due on 02/22/2017 TETANUS due on 03/03/2017 DIABETES SCREEN due on 08/22/2020 LIPID SCREEN due on 12/08/2022 PROSTATE CANCER SCREENING DISCUSSION Completed INFLUENZA Completed HEPATITIS C SCREENING Completed Data reviewed Component Latest Ref Rng ANDamp; Units 08/22/2017 12/08/2017 Cholesterol, Total ANDlt;200 mg/dL 158 Triglyceride ANDlt;150 mg/dL 74 HDL Cholesterol ANDgt;39 mg/dL 41 LDL Cholesterol ANDlt;100 mg/dL 102 (H) Non HDL Cholesterol ANDlt;130 mg/dL 117 Fasting Time hrs 12 VLDL Cholesterol ANDlt;30 mg/dL 15 TC:HDL Ratio ANDlt;5.10 3.85 LDL:HDL Ratio ANDlt;2.54 2.49 Hemoglobin A1C 4.3 - 5.6 % 5.2 Estimated Average Glucose mg/dL 103 ASSESSMENT/PLAN: 1. Hypertensive heart disease without heart failure - ICD9: 402.90, ICD10: I11.9 (primary diagnosis) - good control - Continue current medication(s) - Encouraged dietary sodium restriction/DASH diet - Recommended regular aerobic exercise. - Reviewed risks of HTN and principles of treatment - Goal of BP ANDlt;140/90 2. Dyspnea, unspecified type - ICD9: 786.09, ICD10: R06.00 Much improved. Continue current regimen per pulmonology. Follow up in 6 months. 3. Coronary artery disease involving mentasta heart without angina pectoris, unspecified vessel or lesion type - ICD9: 414.01, ICD10: I25.10 Asymptomatic. Will monitor. 4. Cerebrovascular accident (CVA) due to embolism of cerebral artery (HCC) - ICD9: 434.11, ICD10: I63.40 No new signs of stroke. Continue secondary stroke prevention. 5. LESLY on CPAP - ICD9: 327.23, V46.8, ICD10: G47.33, Z99.89 Continue nightly. Working well for patient. 6. Gastroesophageal reflux disease, esophagitis presence not specified - ICD9: 530.81, ICD10: K21.9 - Continue treatment with Protonix 7. Hyperlipidemia, unspecified hyperlipidemia type - ICD9: 272.4, ICD10: E78.5 - good control - Continue current medication. - Encouraged following a low fat, low cholesterol diet. - Discussed the benefits of regular aerobic exercise and weight loss. 8. Prostate cancer (HCC) - ICD9: 185, ICD10: C61 F/u with urology every 6 months as recommended. 9. Screening for colon cancer - ICD9: V76.51, ICD10: Z12.11 - FECAL OCCULT BLOOD TEST 10. Abrasion of left hand, initial encounter - ICD9: 914.0, ICD10: S60.512A Healing well. Advised triple abx ointment and to call with signs of infection. Will update tetanus today. - COMP METABOLIC PANEL - CBC 11. Need for vaccination - ICD9: V05.9, ICD10: Z23 - TETANUS/DIPTHERIA BOOSTER (OVER 7), PF Vilma Snow MD Referring Provider: VILMA SNOW () [[id number]] Allergies As of Date: 12/10/2017 Noted Allergy Reaction PARAFOSoco PALOMO DSC (CHLORZOXAZONE) 03/11/2006 Date Reviewed: 12/10/2017 Reviewed by: Peter Armando Ma - Fully Assessed Reason for Visit: F/U 3 Month [443] Cmt: routine - requesting 12.5 mg metoprolol Reason For Visit History Recorded Primary Visit Diagnosis:Hypertensive heart disease without heart failure [I11.9] Other Visit Diagnoses:Dyspnea, unspecified type [R06.00] Coronary artery disease involving mentasta heart without angina pectoris, unspecified vessel or lesion type [I25.10] Cerebrovascular accident (CVA) due to embolism of cerebral artery (HCC) [I63.40] LESLY on CPAP [G47.33, Z99.89] Gastroesophageal reflux disease, esophagitis presence not specified [K21.9] Hyperlipidemia, unspecified hyperlipidemia type [E78.5] Prostate cancer (HCC) [C61] Screening for colon cancer [Z12.11] Abrasion of left hand, initial encounter [S60.512A] Need for vaccination [Z23] Order(s):FECAL OCCULT BLOOD TEST [SQIFOBT] Order #: [id number] FUTURE losartan (COZAAR) 25 mg tabletTake 0.5 tablets by mouth once daily.Disp: Rfl: 0 COMP METABOLIC PANEL [SQCMP] Order #: [id number] FUTURE CBC [SQCBC] Order #: [id number] FUTURE TETANUS/DIPTHERIA BOOSTER (OVER 7), PF IM [[id number]] Order #: [id number] Prescriptions as of 12/10/2017 Sig: LOSARTAN 25 MG TABLET Take 0.5 tablets by mouth onc* BUDESONIDE-FORMOTEROL HFA 160* Inhale 2 Puffs as instructed * SERTRALINE 50 MG TABLET Take 1 tablet by mouth once d* FLUTICASONE 50 MCG/ACTUATION * Use 2 Sprays in each nostril * MONTELUKAST 10 MG TABLET Take 1 tablet by mouth daily * NITROGLYCERIN SUBLINGUAL Dissolve under the tongue as* CPAP CLOPIDOGREL 75 MG TABLET Take 1 tablet by mouth once d* ATORVASTATIN 20 MG TABLET TAKE 1 TABLET DAILY ALBUTEROL SULFATE 0.63 MG/3 M* Inhale contents of 1 vial in * PANTOPRAZOLE 20 MG TABLET,DEL* TAKE 1 TABLET DAILY BEFORE BR* ALBUTEROL SULFATE HFA 90 MCG/* Inhale 2 Puffs as instructed * METOPROLOL SUCCINATE ER 25 MG* Take 1 tablet by mouth once d* Patient taking differently: Take 25 mg by mouth once jose maria* ASPIRIN 81 MG CHEWABLE TABLET Take 81 mg by mouth once jose maria* Problem List As Of Date 12/10/2017 Noted Resolved DYSPHAGIA [787.2] Esophagitis, unspecified [K20.9] INVALID FOR* More... DIAPHRAGMATIC HERNIA [K44.9] INVALID FOR* FAMILY HX PROSTATIC MALIGNANCY [Z80.42] INVALID FOR* Elevated prostate specific antigen (PSA) [R97.2*INVALID FOR* More... Other and unspecified hyperlipidemia [E78.5] INVALID FOR*12/10/2017 More... Prostate cancer [C61] INVALID FOR* HLD (hyperlipidemia) [E78.5] INVALID FOR* GERD (gastroesophageal reflux disease) [K21.9] INVALID FOR* Hypertensive cardiovascular disease [I11.9] INVALID FOR* Stroke (HCC) [I63.9] INVALID FOR* Chronic anticoagulation [Z79.01] INVALID FOR*09/10/2017 Sleep apnea [G47.30] INVALID FOR*06/02/2017 PFO (patent foramen ovale) [Q21.1] INVALID FOR* LESLY on CPAP [G47.33, Z99.89] INVALID FOR* Cerebrovascular accident (CVA) due to embolism *INVALID FOR* LESLY (obstructive sleep apnea) [G47.33] 06/02/2017 More... History of CVA (cerebrovascular accident) [Z86.*INVALID FOR* More... CAD (coronary artery disease) [I25.10] More... Cough [R05] INVALID FOR*12/10/2017 SOB (shortness of breath) [R06.02] INVALID FOR* Wheezing [R06.2] INVALID FOR*12/10/2017 Depression [F32.9] Prescriptions ordered this encounter Disp Refills Start End LOSARTAN 25 MG TABLET 0 12/10/2017 Class: Med Update Route: ORAL Sig: Take 0.5 tablets by mouth once daily. Medications Discontinued During This Encounter losartan (COZAAR) 25 mg tablet 0 06/12/2017 12/10/2017 Class: Med Update Route: ORAL Sig: Take 1 tablet by mouth once daily. Disc: Reason for discontinue is not on file. Encounter Status:Closed by VILMA SNOW MD on 12/10/17 LIPID PANEL, BASIC Collected: 12/08/2017 Status: F Source: [place] 7:35 AM [facility] [place] REPOSITORY TYPE CODE TESTS RESULT OUT OF REFERENCE UNITS RANGE LAB CHOL <200 mg/dL Cholesterol 158 Result Comment: <200 mg/dL, Desirable 200-239 mg/dL, Borderline high >239 mg/dL, High LAB TRIGLY <150 mg/dL Triglyceride 74 Result Comment: <150 mg/dL, Normal 150-199 mg/dL, Borderline high 200-499 mg/dL, High >499 mg/dL, Very high LAB HDL >39 mg/dL HDL-Cholesterol 41 Result Comment: 40-59 mg/dL, Acceptable >59 mg/dL, High: Negative risk factor for coronary heart disease <40 mg/dL, Low: Positive risk factor for coronary heart disease LAB LDL <100 mg/dL LDL-Cholesterol High 102 Result Comment: <100 mg/dL, Optimal 100-129 mg/dL, Near optimal/above optimal 130-159 mg/dL, Borderline high 160-189 mg/dL, High >189 mg/dL, Very high Secondary prevention optimal LDL Cholesterol levels are recommended to be < 70 mg/dL LAB NONHDL <130 mg/dL Non HDL Cholesterol 117 Result Comment: <130 mg/dL, Optimal 130-159 mg/dL, Near optimal/above optimal 160-189 mg/dL, Borderline high 190-219 mg/dL, High >219 mg/dL, Very high Secondary prevention optimal non HDL Cholesterol levels are recommended to be < 100 mg/dL LAB FT hrs Fasting Time 12 LAB VLDL <30 mg/dL VLDL Cholesterol 15 LAB TCHDL <5.10 TC:HDL Ratio 3.85 LAB LDLHDL <2.54 LDL:HDL Ratio 2.49 Result Comment: Reference: 1. National Cholesterol Education Program ATP III Guideline At-A-Glance Quick Desk Reference: National Heart, Lung, and Blood [place]. National Institutes of Health. 2001: NIH Publication No. 01-3305. 2. An International Atherosclerosis Society position paper: global recommendations for the management of dyslipidemia: executive summary, Atherosclerosis. 2014: 232(2):410-413. Performed By: #### LIPB #### [facility] [address] [place] [id number] CNPTOUTREACH Observed: 11/25/2017 Status: COMPLETED Source: [place] 12:00 AM [facility] REPOSITORY Patient Outreach ([facility]) MACI HOWARD ([id number]) 1955 Date Time Provider Department 11/25/17 VILMA SNOW) [facility] During your visit today, we recorded the following information about you: Allergies As of Date: 11/25/2017 Noted Allergy Reaction PARAFON FORTE DSC (CHLORZOXAZONE) 03/11/2006 Date Reviewed: 11/10/2017 Reviewed by: Lynn (Rn) SCOTT Workman - Fully Assessed Visit Diagnosis:Medication management [Z79.899] Order(s):BASIC METABOLIC PNL [SQBMP] Order #: [id number] FUTURE LIPID PANEL BASIC [SQLIPB] Order #: [id number] FUTURE Problem List As Of Date 11/25/2017 Noted Resolved DYSPHAGIA [787.2] Esophagitis, unspecified [K20.9] INVALID FOR* More... DIAPHRAGMATIC HERNIA [K44.9] INVALID FOR* FAMILY HX PROSTATIC MALIGNANCY [Z80.42] INVALID FOR* Elevated prostate specific antigen (PSA) [R97.2*INVALID FOR* More... Other and unspecified hyperlipidemia [E78.5] INVALID FOR* More... Prostate cancer [C61] INVALID FOR* HLD (hyperlipidemia) [E78.5] INVALID FOR* GERD (gastroesophageal reflux disease) [K21.9] INVALID FOR* Hypertensive cardiovascular disease [I11.9] INVALID FOR* Stroke (HCC) [I63.9] INVALID FOR* Chronic anticoagulation [Z79.01] INVALID FOR*09/10/2017 Sleep apnea [G47.30] INVALID FOR*06/02/2017 PFO (patent foramen ovale) [Q21.1] INVALID FOR* LESLY on CPAP [G47.33, Z99.89] INVALID FOR* Cerebrovascular accident (CVA) due to embolism *INVALID FOR* LESLY (obstructive sleep apnea) [G47.33] 06/02/2017 More... History of CVA (cerebrovascular accident) [Z86.*INVALID FOR* More... CAD (coronary artery disease) [I25.10] More... Cough [R05] INVALID FOR* SOB (shortness of breath) [R06.02] INVALID FOR* Wheezing [R06.2] INVALID FOR* Depression [F32.9] Encounter Status:Closed by JOY FUCHS on 05/29/18 TEMI Observed: 11/18/2017 Status: COMPLETED Source: [place] 12:00 AM [facility] REPOSITORY Telephone ([facility]) MACI HOWARD ([id number]) 1955 M Date Time Provider Department 11/18/17 YOUSUF JEWELL [facility] During your visit today, we recorded the following information about you: Lizy Wolff 11/18/2017 4:51 PM Signed Patient calling to review bronchoscopy results and biopsy results Please are review and advise Patient is requesting a call from the office. Please call patient on mobile during the day if he can not be reached on home phone Yousuf Jewell MD 12/10/2017 4:29 PM Signed Responding to patient via [employer] message 12/10/2017. Yousuf Jewell MD, [facility] Yousuf Jewell MD 12/15/2017 3:12 PM Signed Patient acknowledged and accepted explanation in [employer] message 12/10/2017. Yousuf Jewell MD, [facility] Allergies As of Date: 11/18/2017 Noted Allergy Reaction LOURDES PALOMO DSC (CHLORZOXAZONE) 03/11/2006 Date Reviewed: 11/10/2017 Reviewed by: Lynn (Rn) SCOTT Workman - Fully Assessed Reason for Visit: Results [95] Prescriptions as of 11/18/2017 Sig: SERTRALINE 50 MG TABLET Take 1 tablet by mouth once d* X BUDESONIDE-FORMOTEROL HFA 160* Inhale 2 Puffs as instructed * FLUTICASONE 50 MCG/ACTUATION * Use 2 Sprays in each nostril * MONTELUKAST 10 MG TABLET Take 1 tablet by mouth daily * X LOSARTAN 25 MG TABLET Take 1 tablet by mouth once d* NITROGLYCERIN SUBLINGUAL Dissolve under the tongue as* CPAP CLOPIDOGREL 75 MG TABLET Take 1 tablet by mouth once d* ATORVASTATIN 20 MG TABLET TAKE 1 TABLET DAILY ALBUTEROL SULFATE 0.63 MG/3 M* Inhale contents of 1 vial in * PANTOPRAZOLE 20 MG TABLET,DEL* TAKE 1 TABLET DAILY BEFORE BR* ALBUTEROL SULFATE HFA 90 MCG/* Inhale 2 Puffs as instructed * METOPROLOL SUCCINATE ER 25 MG* Take 1 tablet by mouth once d* Patient taking differently: Take 25 mg by mouth once jose maria* ASPIRIN 81 MG CHEWABLE TABLET Take 81 mg by mouth once jose maria* Problem List As Of Date 11/18/2017 Noted Resolved DYSPHAGIA [787.2] Esophagitis, unspecified [K20.9] INVALID FOR* More... DIAPHRAGMATIC HERNIA [K44.9] INVALID FOR* FAMILY HX PROSTATIC MALIGNANCY [Z80.42] INVALID FOR* Elevated prostate specific antigen (PSA) [R97.2*INVALID FOR* More... Other and unspecified hyperlipidemia [E78.5] INVALID FOR* More... Prostate cancer [C61] INVALID FOR* HLD (hyperlipidemia) [E78.5] INVALID FOR* GERD (gastroesophageal reflux disease) [K21.9] INVALID FOR* Hypertensive cardiovascular disease [I11.9] INVALID FOR* Stroke (HCC) [I63.9] INVALID FOR* Chronic anticoagulation [Z79.01] INVALID FOR*09/10/2017 Sleep apnea [G47.30] INVALID FOR*06/02/2017 PFO (patent foramen ovale) [Q21.1] INVALID FOR* LESLY on CPAP [G47.33, Z99.89] INVALID FOR* Cerebrovascular accident (CVA) due to embolism *INVALID FOR* LESLY (obstructive sleep apnea) [G47.33] 06/02/2017 More... History of CVA (cerebrovascular accident) [Z86.*INVALID FOR* More... CAD (coronary artery disease) [I25.10] More... Cough [R05] INVALID FOR* SOB (shortness of breath) [R06.02] INVALID FOR* Wheezing [R06.2] INVALID FOR* Depression [F32.9] Encounter Status:Closed by YOUSUF JEWELL MD on 12/10/17 PT ED Observed: 11/10/2017 Status: COMPLETED Source: [place] 2:40 PM CLINIC OTHER [place] REPOSITORY HNO ID: [id number] Author: Rafael (Rn) SCOTT Aguirre Service: Nursing Author Type: Registered Nurse Type: Patient Education Filed: 11/10/2017 2:45 PM Note Text: POST OP LEARNING RESPONSE INSTRUCTION PROVIDED TO: Patient and family member METHOD OF INSTRUCTION: Written instruction - handouts Verbal instruction PATIENT / FAMILY RESPONSE: Information received as demonstrated by interest and questions FOLLOW-UP PLAN: Patient instructed to call with any further issues SUPPLEMENTAL MATERIAL: None REFERRAL (RECOMMENDATION): None Electronically Signed By: Rafael Aguirre RN In Department: [facility] ENDOSCOPY NURSING PROG Observed: 11/10/2017 Status: COMPLETED Source: [place] 1:46 PM CLINIC OTHER CAMPUS REPOSITORY HNO ID: [id number] Author: Lynn AndersonRn) SCOTT Workman Service: Nursing Author Type: Registered Nurse Type: Nursing Progress Note Filed: 11/10/2017 2:04 PM Note Text: Nursing Progress Note Patient Name: Maci Howard Patient [facility]: [facility] pt awake and talking to at this time. Denies pain. This note was completed by: Lynn Workman RN 1400 pt had sm sips H2O, managed fluids well, VSS. PROCEDURE Observed: 11/10/2017 Status: COMPLETED Source: [place] 1:13 PM [facility] REPOSITORY HNO ID: [id number] Author: Yousuf Jewell Service: Pulmonary Disease Author Type: Physician Type: Procedures Filed: 11/10/2017 1:14 PM Note Text: 11/10/2017 Maci Howard [id number] Flexible bronchoscopy with endobronchial biopsy of the right lower lobe of the lung, and bronchial washing of the tracheobronchial tree. Pre-procedure Dx: Chronic cough Post-procedure Dx: Chronic cough. Medications: Oxygen, Xylocaine topical, Midazolam, Fentanyl. Findings: No masses, tumors, foreign bodies. Moderate thin non-purulent secretions diffusely. Generalized erythematous swollen bronchial mucosa. Accomplished without difficulty. Tolerated well. Complications: < 5mL blood loss. No chest pain. Transient hypoxemia associated with snoring, relieved with chin lift/jaw thrust. Specimens: Washing for eosinophil smear and microbiology. Biopsy RLL for surgical pathology. Full note in Provation. Yousuf Jewell MD, [facility] Medical Office [place] [address] P: [phone] F: [phone] OPERATIVE NO Observed: 11/10/2017 Status: COMPLETED Source: [place] 1:09 PM [facility] REPOSITORY HNO ID: [id number] Author: Yousuf Jewell Service: Pulmonary Disease Author Type: Physician Type: Operative Report Filed: 11/10/2017 1:13 PM Note Text: 11/10/2017 Maci Howard [id number] Flexible bronchoscopy with endobronchial biopsy of the right lower lobe of the lung, and bronchial washing of the tracheobronchial tree. Pre-procedure Dx: Chronic cough Post-procedure Dx: Chronic cough. Medications: Oxygen, Xylocaine topical, Midazolam, Fentanyl. Findings: No masses, tumors, foreign bodies. Moderate thin non-purulent secretions diffusely. Generalized erythematous swollen bronchial mucosa. Accomplished without difficulty. Tolerated well. Complications: < 5mL blood loss. No chest pain. Transient hypoxemia associated with snoring, relieved with chin lift/jaw thrust. Specimens: Washing for eosinophil smear and microbiology. Biopsy RLL for surgical pathology. Full note in Provation. Yousuf Jewell MD, [facility] Office Building [address] [address] P: [phone] F: [phone] EOSIN SMR Collected: 11/10/2017 Status: F Source: [place] 1:00 PM [facility] OTHER [place] REPOSITORY TYPE CODE TESTS RESULT OUT OF REFERENCE UNITS RANGE LAB EOSSMR 6% Eosin EOSINOPHILS Smr PRESENT (100 WBC COUNTED). Result Comment: This test was developed and its performance characteristics determined by [facility]'s [facility] [place] [facility]). It has not been cleared or approved by the FDA. [facility] is regulated under CLIA as qualified to perform high-complexity testing. This test is used for clinical purposes. It should not be regarded as investigational or for research. Performed By: #### EOSSMR #### [facility] [employer] [address] [place] [address] Observed: 11/10/2017 Status: F Source: [place] RESPIRATORY CULT/STAIN 1:00 PM [facility] REPOSITORY Smear Result - Few Gram positive cocci --> ABNORMAL ALERT Rare Polymorphonuclear leukocytes Rare Epithelial cells Culture Result - Moderate Normal respiratory christofer present Performed By: #### RCULST #### [facility] [employer] [address] [place] [address] Observed: 11/10/2017 Status: F Source: [place] FUNGAL SMEAR 1:00 PM [facility] REPOSITORY Smear Result - No fungus seen. Performed By: #### FUNGSM #### [facility] [employer] [address] [place] [address] SURGICAL PATHOLOGY Observed: 11/10/2017 Status: F Source: [place] 1:00 PM [facility] [place] REPOSITORY Specimen originated from [facility] Specimen #: [id number] Submitting Physician: Yousuf Jewell M.D. FINAL DIAGNOSIS Lung, right lower lobe, endobronchial biopsy - Minimal chronic inflammation with increased eosinophils, and moderate basement membrane thickening (See comment). SM/glw 11/11/2017 COMMENT This biopsy consists of one fragment of alveolated lung parenchyma and several of bronchial wall. The alveolated lung is unremarkable. The bronchial wall shows moderate basement membrane thickening and minimal chronic inflammation including a few lymphocytes and eosinophils (20 per 10 high power weiner). No granulomas or malignant cells are identified. The findings are non-specific, but are consistent with asthma. Jorje Heck M.D. (Electronic Signature) SPECIMEN SUBMITTED A: RLL ENDOBRONCHIAL, BIOPSY CLINICAL DATA CHRONIC COUGH. GROSS DESCRIPTION A. Received in formalin are multiple pieces of horne-pink to red, soft tissue aggregating to 1.2 x 0.2 x 0.1 cm. Totally submitted in one cassette. Gross examination performed at [facility], [address] [place] [address] 11/10/2017 7:12:29 PM Date of Report: 11/12/2017 Date of Procedure: 11/10/2017 Date of Receipt: 11/10/2017 Submitted by: Yousuf Jewell M.D. Location: [facility] Diagnostic interpretation performed at [place] [address]. Performed By: #### PATHS #### [place] [address] [phone] Observed: 11/10/2017 Status: F Source: [place] FUNGAL CULTURE 1:00 PM [facility]IN[facility] OTHER [facility]AMPUS REPOSITORY Culture Result - Rare Yeast, not Cryptococcus neoformans --> ABNORMAL ALERT No other fungus found. Performed By: #### FCUL #### [facility] [employer] [address] [place] [id number] Observed: 11/10/2017 Status: F Source: [place] [employer] CULT AND STAIN 1:00 PM [facility] REPOSITORY Smear Result - No acid fast bacilli seen by fluorochrome stain Culture Result - No Acid Fast Bacilli isolated after 44 days Performed By: #### AFC #### [facility] [address] [place] [address] HISTORY PHYSICAL Observed: 11/10/2017 Status: COMPLETED Source: [place] 11:30 AM [facility] [place] REPOSITORY HNO ID: [id number] Author: Yousuf Jewell Service: Pulmonary Disease Author Type: Physician Type: HANDP Filed: 11/10/2017 12:29 PM Note Text: PROCEDURAL SEDATION HISTORY AND PHYSICAL EXAM SERVICE DATE: 11/10/2017 SERVICE TIME: 11:30 AM Subjective HPI: This is a 62 year old male who presents with chronic cough, recurrent chest infections. Recently seen by local ENT, Dr. Eli, and treated with course of oral antibiotic RX, without change in cough. Recent IgE, eosinophil counts both normal, and RAST [place] panel negative. Has held Plavix and aspirin for 5 days. PAST ANESTHESIA HISTORY: No history of adverse event PAST MEDICAL HISTORY Diagnosis Date - Anxiety - Asthma childhood - CAD (coronary artery disease) s/p SHANIQUA to LAD, seeing Dr. Llanos - Depression - Diaphragmatic hernia without mention of obstruction or gangrene - Dyslipidemia - Dysphagia - Dyspnea With wheezing. Spirometry w/o obstruction 02/01 and 06/03. Dr. Jewell 08/2017. Has seen Dr. Pearl - Esophagitis, unspecified - GERD (gastroesophageal reflux disease) - History of CVA (cerebrovascular accident) 06/20/2014 mild - Obesity (BMI 30.0-34.9) - LESLY (obstructive sleep apnea) Consistently compliant with CPAP. - PFO (patent foramen ovale) - Prostate cancer (HCC) 2012 s/p prostatectomy, [place] PAST SURGICAL HISTORY Procedure Laterality Date - EGD W/O OR W/BRUSH/WASH 05/01/2007 EGD - EGD W/O OR W/BRUSH/WASH 03/21/2013 [facility] EGD - PAST SURGICAL HISTORY OF submandibular gland removed - PAST SURGICAL HISTORY OF 10/31/14 Robotic Prostatectomy - PAST SURGICAL HISTORY OF 04/2017 SHANIQUA to LAD Prior to Admission medications as of 11/10/17 1221 Medication Sig Last Dose Taking sertraline (ZOLOFT) 50 mg tablet Take 1 tablet by mouth once daily. 11/10/2017 at 0730 Yes budesonide-formoterol (SYMBICORT) 160-4.5 mcg/actuation inhaler Inhale 2 Puffs as instructed twice daily. Unknown at Unknown time Yes fluticasone (FLONASE) 50 mcg/actuation nasal spray Use 2 Sprays in each nostril once daily. Rinse mouth after use. 11/09/2017 at Unknown time Yes losartan (COZAAR) 25 mg tablet Take 1 tablet by mouth once daily. 11/09/2017 at Unknown time Yes montelukast (SINGULAIR) 10 mg tablet Take 1 tablet by mouth daily at bedtime. 11/09/2017 at Unknown time Yes NITROGLYCERIN SUBLINGUAL Dissolve under the tongue as needed. Unknown at Unknown time Yes CPAP 11/09/2017 at Unknown time Yes clopidogrel (PLAVIX) 75 mg tablet Take 1 tablet by mouth once daily. 11/04/2017 Yes atorvastatin (LIPITOR) 20 mg tablet TAKE 1 TABLET DAILY 11/09/2017 at Unknown time Yes Albuterol Sulfate 0.63 mg/3 mL nebulizer solution Inhale contents of 1 vial in nebulizer every 4 hours as needed for wheezing Unknown at Unknown time Yes pantoprazole DR (PROTONIX) 20 mg tablet TAKE 1 TABLET DAILY BEFORE BREAKFAST. TAKE ON AN EMPTYSTOMACH, 1/2 HOUR BEFORE A MEAL. 11/09/2017 at Unknown time Yes albuterol HFA (VENTOLIN HFA) 90 mcg/actuation inhaler Inhale 2 Puffs as instructed every 4 hours as needed. Unknown at Unknown time Yes metoprolol succinate ER (TOPROL XL) 25 mg 24 hr tablet Take 1 tablet by mouth once daily. 11/09/2017 at Unknown time Yes aspirin 81 mg chewable tablet Take 81 mg by mouth once daily. 11/04/2017 Yes ALLERGIES Allergen Reactions - [facility] [* Objective PHYSICAL EXAM: GENERAL: Obese, No Distress, Cooperative, Smiling SKIN: Skin color, texture, turgor normal. No rashes or lesions. EYES: EOMI OROPHARYNX: Lips, mucosa, and tongue normal. Teeth and gums normal. Oropharynx normal. ABDOMEN: Abdomen soft, non-tender, BS normal, No masses or organomegaly EXTREMITIES: Extremities normal, no deformities, edema, clubbing or skin discoloration. Good capillary refill. AIRWAY: Airway Visualization of Uvula: Yes Mouth opening greater than 2 fingerbreadths: Yes Neck Full Range of Motion: Yes LUNGS: Lungs clear to auscultation, Good diaphragmatic excursion CARDIAC: Normal S1 and S2; no rubs, murmurs, or gallops Assessment/Plan ASA Class: ASA Class:: Patient with mild systemic disease Active Problems: * No active hospital problems. * Resolved Problems: * No resolved hospital problems. * Provisional Diagnosis/Treatment Plan: Flexible bronchoscopy with bronchial washing and possible biopsy. SEDATION GOAL: Moderate SIGNATURE: Yousuf Jewell MD PATIENT NAME: Maci Howard DATE: November 10, 2017 TIME: 12:22 PM PAGER: [phone] PT ED Observed: 11/10/2017 Status: COMPLETED Source: [place] 11:06 AM [facility]IN[facility] OTHER [facility]AMPUS REPOSITORY HNO ID: [id number] Author: Bebe (Rn) SCOTT Carr Service: (none) Author Type: Registered Nurse Type: Patient Education Filed: 11/10/2017 11:11 AM Note Text: PRE OP LEARNING ASSESSMENT PROCEDURE/SURGERY: Bronchoscopy READINESS TO LEARN COGNITIVE ABILITY: Alert and oriented MOTIVATION TO LEARN: Interested FAMILY SUPPORT: High - Very involved in pt care PATIENT LEARNS BEST BY: Verbal Instruction FACTORS AFFECTING LEARNING: None PHYSICAL LIMITATIONS AFFECTING LEARNING: None Electronically Signed By: Bebe Carr RN In Department: [facility] ENDOSCOPY CARDIOLOGY VISIT Observed: 11/07/2017 Status: F Source: [place] REPORT 2:07 PM [facility] [address] [place] [address] OFFICE VISIT Date of Service: 10/28/17 MR#: [id number] Acct: [id number] Name: MACI HOWARD Rep #: [id number] : 1955 Provider: CHRISTINA Leal Age/Sex: 62/M Location: [facility] Status: Signed HPI HPI Details: MACI HOWARD, is a 62 M who presents to the office today for a cardiovascular outpatient follow-up. Patient has a history of coronary artery disease status post stenting in April 2017, PFO, presumed COPD/asthma, obesity, and GERD. Pt. completed ENT surgery without issue. His dizziness has subsided. He will be undergoing a bronchoscopy with [facility] Dr. Jewell and is here to evaluate if can stop plavix and aspirin for 5 days prior. Pt. denies chest, arm, jaw, or neck discomfort. His exercise tolerance is stable. Pt. denies symptoms of palpitations, lightheadedness, dizziness, near syncope, or syncopal episodes. Pt. denies edema or claudication issues. Pt. denies orthopnea, PND, fever, chills, blood in urine, blood in stool, myalgia, or unexplainable fatigue. Patient continues to have some shortness of breath and productive cough. Intake Vital Signs10/28/17 Height 6 ft 1 in 10/28/17 Weight: 245 lb 10/28/17 Body Mass Index (BMI) 32.3 10/28/17 Blood Pressure 102/70 Intake Visit Reasons: cardiac clearence 11/07/17 Allergies No Known Allergies Allergy (Verified 10/15/17 06:54) Medications Aspirin 81 mg PO DINNER 12/19/16 [History Confirmed 10/23/17] Atorvastatin Calcium [Lipitor] 20 mg PO DINNER 03/11/17 [History Confirmed 10/23/17] Clopidogrel Bisulfate [Plavix] 75 mg PO DINNER 03/11/17 [History Confirmed 10/23/17] Pantoprazole Sodium [Protonix] 20 mg PO DINNER 03/11/17 [History Confirmed 10/23/17] Albuterol Inhaler [Ventolin Hfa] 1 - 2 puff INHALATION Q4H PRN PRN #1 inhaler 03/12/17 [Rx Confirmed 10/28/17] Albuterol Aerosols [Ventolin Aerosols] 2.5 mg INHALATION Q4H PRN PRN 05/13/17 [History Confirmed 10/28/17] Montelukast [Singulair] 10 mg PO DAILY@1700 #30 tab 05/16/17 [Rx Confirmed 10/23/17] Nitroglycerin [Nitrostat] 0.4 mg SUBLINGUAL Q5M PRN #1 bottle 05/16/17 [Rx Confirmed 10/23/17] Fluticasone 0.05% [Flonase Nasal [place]] 1 spray NASAL BID 06/03/17 [History Confirmed 10/23/17] Sertraline HCl [Zoloft] 50 mg PO DAILY 06/24/17 [History Confirmed 10/28/17] budesonide-formoterol HFA 160 mcg-4.5 mcg/actuation aerosol inhaler 2 puff INHALATION Q12H 10/15/17 [History Confirmed 10/28/17] doxycycline hyclate 100 mg tablet 100 mg PO BID tab 10/28/17 [History Confirmed 10/28/17] losartan 25 mg tablet 12.5 mg PO QDAY tab 10/28/17 [History] PFSH Medical History Diastolic dysfunction (Chronic) LESLY (obstructive sleep apnea) (Chronic) Pneumonia (Acute) HTN (hypertension) (Chronic) Sinusitis (Acute) Acute exacerbation of COPD with asthma (Acute) Coronary artery disease (Chronic) Former smoker (Chronic) Hyperlipidemia (Chronic) COPD (chronic obstructive pulmonary disease) (Chronic) Obesity (BMI 30.0-34.9) (Chronic) Chest pain (Chronic) CVA (cerebral vascular accident) (Chronic) Patent foramen ovale (Chronic) Prostate cancer (Chronic) Gastric reflux (Chronic) Asthma (Chronic) Atherosclerotic heart disease of mentasta coronary artery without angina pectoris (Chronic) HLD (hyperlipidemia) (Chronic) Dyspnea (Resolved) URI (upper respiratory infection) (Resolved) Wheezing (Resolved) Surgical History Post PTCA (Acute 05/15/17) History of left heart catheterization (LHC) (Chronic) History of vasectomy (Chronic) Family History Father Hypertension Mother CAD (coronary artery disease) Social History household members: spouse housing: house Smoking Status: Heavy Smoker (>10/day) how long ago did patient quit smokin second hand exposure: Yes alcohol intake: former ROS Const Const: Negative for fatigue, weakness, body ache, fever(s) or chills ENT ENT: Negative for dizziness Cardio Chest Pain: No Palpitations: No Edema: None Muscle aches with walking: None Resp Respiratory: Positive for SOB with activity and Cough (productive cough); negative for SOB at rest, SOB orthopnea\SOB lying down or paroxysmal nocturnal dyspnea GI GI: Negative nausea, black,tarry stools, bright, red blood in stools or vomiting blood/hematemesis : Negative for hematuria or frequent nighttime urination/ nocturia Musc Musc: Negative for muscle aches/ myalgia Neuro Neuro: Negative for weakness, dizziness, lightheadedness, near syncope, syncope or orthostatic symptoms Endo Endo: Negative for fatigue Cardiology Exam Const Appearance: cooperative, healthy appearing, comfortable and no acute distress Orientation: alert, awake and oriented x3 Head Head: normal to inspection Mouth: oral mucosae normal Neck Neck: no JVD and normal visual inspection Carotids: normal carotid upstroke Chest Chest inspection: normal inspection of the chest and normal respiratory effort Auscultation: Bilateral: Clear to Auscultation Cardio Rate: regular rate Rhythm: regular rhythm Heart sounds: S1 normal and S2 normal; negative rub or gallop GI GI: normal to inspection Neuro General: alert, awake, oriented x3 and CN's II-XI intact bilaterally Skin Skin: no rashes or lesions noted Extremities Pulses: Normal: Right Posterior Tibial Pulse, Left Posterior Tibial Pulse, Right Radial Pulse, Left Radial Pulse Lower Extremity Edema: None: Bilateral Psych Psychological: normal affect Supplemental Info Echocardiogram from March 2017 showed an estimated ejection fraction of 55%, trivial mitral valve insufficiency, trivial tricuspid valve insufficiency, mild pulmonic valve insufficiency, RVSP of 24 mmHg, and diastolic dysfunction. Heart catheterization from April 2017 resulted in successful PTCA/SHANIQUA to mid LAD and negative FFR evaluation of proximal RCA. CT scan of chest in May 2017 showed emphysematous and fibrotic changes. Stress echocardiogram from May 2017 showed an ejection fraction of 65% and was negative for ischemia by both EKG and echocardiographic criteria. No anginal symptoms were noted. Patient had appropriate blood pressure response to dobutamine. Assessment AND Plan 1. Atherosclerosis of mentasta coronary artery 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 angina pectoris I25.10 S/P PTCA/SHANIQUA to mid LAD with negative FFR of RCA in April 2017; Plan - JANE Teague Patient denies any chest pain, arm pain, jaw pain, neck pain, shortness of breath, or fatigue suggestive of angina at this time. We will continue to monitor this. We will not make any medication regimen changes and will continue risk factor modification. 2. Patent foramen ovale Q21.1 Plan - JANE Teague Patient's heart catheterization April 2017 evaluate this and felt that PFO was not hemodynamically significant. We will continue to monitor this. 3. Dyspnea on exertion R06.09 Plan - JANE Teague Patient has had extensive pulmonology workup for this. He will be undergoing a bronchoscopy for further evaluation. He will continue to follow-up with pulmonology team for this. 4. LESLY (obstructive sleep apnea) G47.33 Plan - JANE Teague Patient will continue with BiPAP therapy and pulmonology follow-up. 5. 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 6. Pre-operative cardiovascular examination Z01.810 Plan - JANE Teague Patient will be undergoing bronchoscopy with Dr. Jewell of the [facility]. His most recent drug-eluting stent was placed in April 2017 it was requested that patient be evaluated to stop both aspirin Plavix 5 days prior to procedure. This was discussed with Dr. Bowden of the interventional cardiology team. Given that it was a drug-eluting stent/Promus stent and it will be approximately 6 months since placement, he will be able to stop both aspirin Plavix 5 days prior to procedure. It was recommended that he start both later that same day and/or at the discretion of the pulmonology team. Patient's cardiovascular stress test from May 2017 was negative for stress-induced myocardial ischemia by both EKG and echocardiographic criteria. Patient denies any concerning cardia vascular symptoms today. No further cardiovascular testing is needed at this time. Plan Detail Additional Comments - JANE Teague Discussed the above patient with Dr. Bowden in Dr. Llanos's absence, he agrees with the plan of care. Thank you for allowing us to participate in the patients plan of care, if you have any questions please do not hesitate to call. This note was generated using a voice recognition system and there may be incorrect words, spelling or punctuation that were not noted when reviewing the office note prior to saving. Coding Level of Care Code Off vis,est,level 3 Diagnoses Atherosclerosis of mentasta coronary artery 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 angina pectoris I25.10 Patent foramen ovale Q21.1 Dyspnea on exertion R06.09 LESLY (obstructive sleep apnea) G47.33 Chronic obstructive pulmonary disease, unspecified COPD type J44.9 COPD type: unspecified COPD Pre-operative cardiovascular examination Z01.810 Coding Level of Care Code Off vis,est,level 3 Diagnoses Atherosclerosis of ment[place] coronary artery 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 angina pectoris I25.10 Patent foramen ovale Q21.1 Dyspnea on exertion R06.09 LESLY (obstructive sleep apnea) G47.33 Chronic obstructive pulmonary disease, unspecified COPD type J44.9 COPD type: unspecified COPD Pre-operative cardiovascular examination Z01.810 10/28/17 1522 <Electronically signed by Yoan Leal RELIEF PILOT-C> Date Yoan Leal RELIEF PILOT-C 11/07/17 1407<Electronically signed by Johny Bowden MD> Cosigner Signature: Date (if applicable) Johny Bowden MD CC: Elmo Snow MD; Yousuf Jewell MD PULMONARY VISIT REPORT Observed: 10/15/2017 Status: F Source: [place] 3:51 PM [facility] Pul[facility] Medicine [address] [place] [address] OFFICE VISIT Date of Service: 10/15/17 MR#: [id number] Acct: [id number] Name: MACI HOWARD Rep #: [id number] : 1955 Provider: Stewart Pearl MD Age/Sex: 62/M Location: [facility] Status: Signed Assessment AND Plan 1. Chronic obstructive pulmonary disease, unspecified COPD type J44.9 Plan Patient currently is seeking a second opinion at the [facility]. In an effort to not duplicate testing, will follow peripherally for now. Patient understands that if he has any questions and would like my opinion he is free to ask. Patient does report that he has had pulmonary function tests are completed and will attempt to get us a copy of these. Will await results of bronchoscopy. Await second opinion 2. Uncomplicated asthma, unspecified asthma severity J45.909 Plan Discussed with patient at length about inhaler use. Patient understands that Symbicort, Dulera and Breo are all similar type of medications and should not be used concomitantly. No signs or symptoms of exacerbation requiring prednisone burst at this time. Signs and symptoms of exacerbation were reviewed in detail. Patient understands that we can see him as an inpatient if so necessary. Await second opinion 3. LESLY (obstructive sleep apnea) G47.33 Plan Review of patient's compliance report shows significant leak despite well-controlled AHI. This would manifest as no symptoms of fatigue or need for naps, but may lead to increased nasal drainage. Stressed to the patient that he should proceed with changing of the mask. If this does not successfully address the leak, a CPAP fitting class may be necessary. Continue with current settings. Obtain new mask. Possible CPAP class if continues to leak. 4. Sinusitis J32.9 Plan Patient continues to have significant drainage from the sinuses. It is unclear if this is secondary to excessive leak of BiPAP leading to hypersecretion of mucus. Patient continues to follow with Dr. Eli. No signs or symptoms of active infection requiring antibiotics or steroids at this time. Continue to follow with Dr. Eli All 5. Wheezing R06.2 6. URI (upper respiratory infection) J06.9 7. Dyspnea R06.00 Plan Detail Other Medications Discontinued: fluticasone-vilanterol 200-25 mcg/dose (Breo Ellipta) after inha1 inh Inhalation QDAY lation, rinse mouth with water and spit out; do not swallow Disc ontinued Reason: Pt no longer taking Follow Up 6 Months (CSM) HPI 3 M FU: Chief Complaint: Chronic cough Details: Patient is a 62-year-old male, currently in the care of Dr. Snow, who presents for evaluation secondary to chronic cough. Since last visit, patient has had exacerbations of patient did go for a second opinion at the [facility]. Patient states he was seen by Dr. Jewell he spent a lot of time with me. Patient reports that he was transitioned from Breo therapy to Symbicort with no subjective change in overall condition. Patient also reports that he has a bronchoscopy scheduled for December 08 to look for chronic infection. Patient reports he had a pulmonary function test and methacholine challenge completed by Dr. Jewell. Patient states that he compared this to his previous studies, but did not give him any information on whether they were worse or not. Patient states that his methacholine was mildly positive. Patient has continued to see Dr. Eli does have an appointment with him tomorrow. Patient continues to be compliant with BiPAP therapy for approximately 7.5 hours per night. Patient reports good response to therapy and wakes feeling rested. Patient does state that he wakes up less at night to cough secretions since his sinus surgery. Patient continues to have a productive cough on a daily basis. Patient states this is slightly worse compared to my previous evaluation. Patient is wondering if my surgery wore off. Patient states this can result in hoarseness at the end of the day. Documentation reviewed with the patient Compliance report (September 2017): Compliant 100% of days for an average of 7.5 hours on CPAP 15 cm of water with a residual AHI of 0.6, but noted to have excessive leak. Intake Vital Signs10/15/17 Height 6 ft 1 in 10/15/17 Weight: 107.955 kg Intake Visit Reasons: 3 M FU Accompanied by: Self Allergies No Known Allergies Allergy (Verified 10/15/17 06:54) Medications Aspirin 81 mg PO DINNER 12/19/16 [History Confirmed 10/15/17] Atorvastatin Calcium [Lipitor] 20 mg PO DINNER 03/11/17 [History Confirmed 10/15/17] Clopidogrel Bisulfate [Plavix] 75 mg PO DINNER 03/11/17 [History Confirmed 10/15/17] Pantoprazole Sodium [Protonix] 20 mg PO DINNER 03/11/17 [History Confirmed 10/15/17] Albuterol Inhaler [Ventolin Hfa] 1 - 2 puff INHALATION Q4H PRN PRN #1 inhaler 03/12/17 [Rx Confirmed 10/15/17] Albuterol Aerosols [Ventolin Aerosols] 2.5 mg INHALATION Q4H PRN PRN 05/13/17 [History Confirmed 10/15/17] Montelukast [Singulair] 10 mg PO DAILY@1700 #30 tab 05/16/17 [Rx Confirmed 10/15/17] Nitroglycerin [Nitrostat] 0.4 mg SUBLINGUAL Q5M PRN #1 bottle 05/16/17 [Rx Confirmed 10/15/17] Fluticasone 0.05% [Flonase Nasal [place]] 1 spray NASAL BID 06/03/17 [History Confirmed 10/15/17] Mometasone/Formoterol [Dulera 200 Mcg/5 Mcg Inhaler] 8.8 gm IH BID 06/07/17 [History Confirmed 10/15/17] Sertraline HCl [Zoloft] 50 mg PO DAILY 06/24/17 [History Confirmed 10/15/17] Mirtazapine [Remeron] 15 mg PO QHS PRN 07/04/17 [History Confirmed 10/15/17] losartan 25 mg tablet 25 mg PO QDAY #90 tab 08/19/17 [Rx Confirmed 10/15/17] budesonide-formoterol HFA 160 mcg-4.5 mcg/actuation aerosol inhaler 2 puff INHALATION Q12H 10/15/17 [History Confirmed 10/15/17] PFSH Medical History Diastolic dysfunction (Chronic) URI (upper respiratory infection) (Acute) Wheezing (Acute) Dyspnea (Chronic) LESLY (obstructive sleep apnea) (Chronic) Pneumonia (Acute) HTN (hypertension) (Chronic) Sinusitis (Acute) Acute exacerbation of COPD with asthma (Acute) Coronary artery disease (Chronic) Former smoker (Chronic) Hyperlipidemia (Chronic) COPD (chronic obstructive pulmonary disease) (Chronic) Obesity (BMI 30.0-34.9) (Chronic) Chest pain (Chronic) CVA (cerebral vascular accident) (Chronic) Patent foramen ovale (Chronic) Prostate cancer (Chronic) Gastric reflux (Chronic) Asthma (Chronic) Atherosclerotic heart disease of [place] coronary artery without angina pectoris (Chronic) HLD (hyperlipidemia) (Chronic) Surgical History Post PTCA (Acute 05/15/17) History of left heart catheterization (LHC) (Chronic) History of vasectomy (Chronic) Family History Father Hypertension Mother CAD (coronary artery disease) Social History household members: spouse housing: house Smoking Status: Heavy Smoker (>10/day) how long ago did patient quit smokin second hand exposure: Yes alcohol intake: former Review of Systems Const CONSTITUTIONAL: Negative anorexia, body ache, chills, daytime sleepiness, fever(s), night sweats, oral thrush, stops breathing during sleep, weight loss, sleeping in chair, fatigue, weight loss, weight gain, frequent colds, seasonal allergies, other, orthopnea or headache(s) EETM Ear Nose Throat Mouth: Positive hard of hearing, nasal discharge and post nasal drip; negative hearing normal, hoarseness, dry mouth in morning, change in vision, itchy eyes, eye pain, swallowing Difficulty, ear pain, nose bleed, headache(s), mouth pain, nasal congestion, sinus pain, sinus pressure, sore throat or other Cardio Cardiovascular: Negative chest pain, chest pain at rest, chest pain with activity, irregular heart rhythm, edema, shortness of breath when lying down, palpitations, murmur or other Resp Respiratory: Positive as per HPI, cough, inhalers and apnea; negative shortness of breath, pain with cough, wheezing, chest congestion, chest tightness, pain on inspiration, increase use of rescue inhalers, snoring or other Gastro Gastrointestional: Negative bloody stools, change in appetite, difficulty swallowing, reflux, hematemesis, melena stool, loose stool, constipation or other Genitourinary: Negative blood in urine, nocturia, pain with urination or other Musc Musculoskeletal: Negative body pain, back pain, neck pain or other Skin/Breast Skin/Breast: Negative dry skin, itching, rash, unusual bruising, breast lump or other Neuro Neurological: Negative restless legs, confusion, weakness or other Psych Psychocological: Negative abnormal sleep pattern, anxiety, thoughts of hurting self/others, hopelessness or other Lymph Lymphatic: Negative easy bleeding, easy bruising, swollen lymph nodes or other Exam Const Constitutional: Positive conversant, cooperative, in no acute respiratory distress, healthy appearing, well developed, well nourished and good hygiene Head Head: Positive normocephalic, atraumatic, frontal sinus tenderness and maxillary sinus tenderness; negative cyanosis of lips/distal nose Eyes Eye: Positive clear conjunctiva; negative nystagmus, scleral abnormality or cataract present Ears Ear: Positive hard of hearing and external ears normal; negative hearing normal Nose Nose: Positive external nose normal and purulent nasal discharge; negative epistaxis, nasal polyp or septum normal (Deviated septum noted) Mouth Mouth: Positive post nasal drip, oral mucosae normal, good dentition and crowded posterior oropharynx; negative oral thrush present, malodorous breath or no lesions Mallampati Score: III: Mallampati Score Neck Neck: Positive normal visual inspection, full ROM, trachea midline and male neck greater than 43 cm (17 in); negative lymphadenopathy or JVD Chest Wall Chest: Positive normal inspection of the chest and symmetric chest movement; negative crepitus or tenderness Resp lung sounds: Positive clear to auscultation, good air exchange, rhonchi (Right base that improves with coughing), wheeze present on forced exhalation and prolonged expiratory time; negative wheezes, rales or use of accessory muscles Cardio Cardiac: Positive regular rate, regular rhythm, S1 normal, S2 normal and normal PMI; negative murmur, rub or gallop GI GI: Positive normal to inspection and normal bowel sounds; negative distended, ascites or epigastric tenderness Genitourinary: Positive deferred Musc Musculoskeletal: Positive steady gait; negative using an assistive device for ambulation, kyphosis or scoliosis Skin Pulmonary Skin Exam: Positive intact; negative rash, lesion, ulcers, erythema, scaly or dermal atrophy Extremities Extremities: Yes capillary refill normal, No clubbing, No cyanosis, No edema Neuro Neurologic: Yes conversant, Yes no focal neuro deficits, Yes cooperative, Yes normal cognition, Yes normal coordination, Yes normal concentration, Yes understands questions Lymph Lymphatic: No lymphadenopathy, No tenderness, No cervical adenopathy, No axillary adenopathy Psych Appearance: Positive grossly normal Mental Status: Positive mental status grossly normal Mood: Positive congruent mood Affect: Positive normal affect Coding Level of Care Code Off vis,est,level 4 Diagnoses Chronic obstructive pulmonary disease, unspecified COPD type J44.9 COPD type: unspecified COPD Uncomplicated asthma, unspecified asthma severity J45.909 Asthma complication type: uncomplicated Asthma severity: unspecified severity LESLY (obstructive sleep apnea) G47.33 Sinusitis J32.9 Wheezing R06.2 URI (upper respiratory infection) J06.9 Dyspnea R06.00 10/15/17 1551 <Electronically signed by Stewart Pearl MD> Date Stewart Freitasigner Signature: Date (if applicable) CC: Elmo Snow MD LIVER PROFILE Collected: 10/15/2017 Status: F Source: [place] 6:43 [facility] Order Comment: Order Date: 06/04/17 Order Info: [id number] - *Hepatic Function Panel Order Info: [id number] - *Lipid Profile CC PCP Comments: 12 hours fasting, may have water. TYPE CODE TESTS RESULT OUT OF RANGE REFERENCE UNITS LAB L501.1500 6.4-8.2 g/dL Normal T PROT 7.2 LAB L501.1800 3.2-5.0 g/dL Normal ALB 3.4 LAB L501.1950 2.2-4.2 g/dL Normal GLOB 3.8 LAB L501.4100 15-37 U/L Normal AST 25 LAB L501.4305 45-117 U/L Normal ALK P 67 LAB L501.4405 16-61 U/L Normal ALT 34 Result Comment: Please note revised ALT reference range effective 2017. LAB L501.4600 0.20-1.00 mg/dL Normal T BILI 0.50 LAB L501.4700 0.00-0.30 mg/dL Normal D BILI 0.13 Performed By: #### L500.3400 #### [facility] [address] [place], [address] LIPID PROFILE Collected: 10/15/2017 Status: F Source: [place] 6:43 AM [facility] [place] Order Comment: Order Date: 06/04/17 Order Info: [id number] - *Hepatic Function Panel Order Info: [id number] - *Lipid Profile CC PCP Comments: 12 hours fasting, may have water. TYPE CODE TESTS RESULT OUT OF RANGE REFERENCE UNITS LAB L501.4900 200 mg/dL Normal CHOL 174 Result Comment: <200 mg/dL Desirable 200-240 mg/dL Borderline >240 mg/dL High Risk LAB L501.5000 mg/dL Normal TRIG 107 Result Comment: The drugs N-Acetylcysteine and Metamizole may falsely depress this assay. Serum Triglycerides Reference Interval Normal <150 mg/dL Borderline high 150 - 199 mg/dL High 200 - 499 mg/dL Very High > or = 500 mg/dL LAB L501.6400 mg/dL Normal HDL 44 Result Comment: The drugs N-Acetylcysteine and Metamizole may falsely depress this assay. Reference Range HDL <40 mg/dL Low HDL Cholesterol HDL >or= 60 mg/dL High HDL Cholesterol LAB L501.6500 0-130 mg/dL Normal LDL 109 LAB L501.6600 5-40 mg/dL Normal VLDL 21 Performed By: #### L500.4100 #### [facility] [address] [place] [place], [address] HOSP Observed: 10/06/2017 Status: COMPLETED Source: [place] 12:00 AM CLINIC OTHER CAMPUS REPOSITORY Patient:Maci Howard MRN: <[id number]> Height:6' 1(1.854 m) Weight:No patient weight recorded within the last 30 days. Outpatient Medications as of 11/10/17: sertraline (ZOLOFT) 50 mg tablet budesonide-formoterol (SYMBICORT) 160-4.5 mcg/actuation inhaler fluticasone (FLONASE) 50 mcg/actuation nasal spray losartan (COZAAR) 25 mg tablet montelukast (SINGULAIR) 10 mg tablet NITROGLYCERIN SUBLINGUAL CPAP clopidogrel (PLAVIX) 75 mg tablet atorvastatin (LIPITOR) 20 mg tablet Albuterol Sulfate 0.63 mg/3 mL nebulizer solution pantoprazole DR (PROTONIX) 20 mg tablet albuterol HFA (VENTOLIN HFA) 90 mcg/actuation inhaler metoprolol succinate ER (TOPROL XL) 25 mg 24 hr tablet aspirin 81 mg chewable tablet Admission/Clinic Administered Medications as of 11/10/17: 0.9% NaCl 2-10 mL Problem List: Dysphagia [787.2] Esophagitis, unspecified [K20.9] Diaphragmatic hernia without mention of obstruction or gangrene [K44.9] Family history of malignant neoplasm of prostate [Z80.42] Elevated prostate specific antigen (PSA) [R97.20] Other and unspecified hyperlipidemia [E78.5] Prostate cancer (HCC) [C61] HLD (hyperlipidemia) [E78.5] GERD (gastroesophageal reflux disease) [K21.9] Hypertensive cardiovascular disease [I11.9] Stroke (HCC) [I63.9] PFO (patent foramen ovale) [Q21.1] LESLY on CPAP [G47.33, Z99.89] Cerebrovascular accident (CVA) due to embolism of cerebral artery (HCC) [I63.40] History of CVA (cerebrovascular accident) [Z86.73] CAD (coronary artery disease) [I25.10] Cough [R05] SOB (shortness of breath) [R06.02] Wheezing [R06.2] Depression [F32.9] Allergies: Parafon Forte Dsc [Chlorzoxazone] Date Verified: 11/10/17 Lab Values No results within the last 30 days for the following basenames: K,HCT Progress Notes ([facility]): MANDIE Or[place], [facility] 10/16/2017 4:45 PM Signed Patient has been identified by name and date of : Yes RX INSTRUCTIONS: Patient aware RX will be sent to pharmacy. No need to notify patient. Aleida Reid PSR Altagracia [employer] 10/17/2017 8:40 AM Signed Patient has been identified by name and date of : Yes Pending Prescriptions Disp Refills SERTRALINE 25 MG TABLET Sig: Take 2 tablets by mouth once daily. KARY: No RX INSTRUCTIONS: Patient aware RX will be sent to pharmacy. No need to notify patient. Last visit 09/26/17 Future visit 12/10/17 Last filled 09/10/17 No refills un sure of quantity Altagracia Mars [facility] Vilma Snow MD 10/17/2017 9:05 AM Signed Will give 50 mg tablet instead. PROGRESS Observed: 09/26/2017 Status: COMPLETED Source: [place] 9:09 AM [facility] [place] REPOSITORY O ID: [id number] Author: Vilma Espinoza) Gwendolyn Service: (none) Author Type: Physician Type: Progress Notes Filed: 09/26/2017 1:09 PM Note Text: Chief Complaint Patient presents with: Recheck: breathing issues HPI Maci Howard is a 62 year old male who presents here today for Above Complaints.. Since last visit, patient finished testing through Dr. Houser's office and had negative RAST and IgE/eosinophils. Started on symbicort instead of Breo. States that the symbicort has not helped with his breathing symptoms. Still complaining of productive cough, SOB, wheezing, anosmia, loss of taste, change in hearing. Also complaining of joint aches in neck, knees, and elbows intermittently, does not correlate with other symptoms. States that the only time he has had improvement in symptoms was when he was on antibiotics in the past, and as soon as he stopped the medication his symptoms returned. Has talked with Dr. Jewell about flexible bronchoscopy and believes it is time to have this done since he had the IgE testing and methacholine challenge which were normal. Does not have scheduled appointment for this, will help him to establish. Patient is very confused and irritated about what could be causing this. Would like to know if he is dying or if he is going to have symptoms like this for the rest of his life. Also should be noted that patient was erroneously given an injection for prevnar today. Apologized for the error, but discussed that with his current symptoms, prevention against pneumonia would actually be beneficial for him. Past medical history, appointments, medications, allergies reviewed. Previous Medical History PAST MEDICAL HISTORY Diagnosis Date - Anxiety - Asthma childhood - CAD (coronary artery disease) s/p SHANIQUA to LAD, seeing Dr. Llanos - Depression - Diaphragmatic hernia without mention of obstruction or gangrene - Dyslipidemia - Dysphagia - Dyspnea With wheezing. Spirometry w/o obstruction 02/01 [address] 06/03. Dr. Jewell 08/2017. Has seen Dr. Pearl - Esophagitis, unspecified - GERD (gastroesophageal reflux disease) - History of CVA (cerebrovascular accident) 06/20/2014 mild - Obesity (BMI 30.0-34.9) - LESLY (obstructive sleep apnea) Consistently compliant with CPAP. - PFO (patent foramen ovale) - Prostate cancer (HCC) 2012 s/p Sue jarquin Previous Surgical History PAST SURGICAL HISTORY Procedure Laterality Date - EGD W/O OR W/BRUSH/WASH 05/01/2007 EGD - EGD W/O OR W/BRUSH/WASH 03/21/2013 [facility] EGD - PAST SURGICAL HISTORY OF submandibular gland removed - PAST SURGICAL HISTORY OF 10/31/14 Robotic Prostatectomy - PAST SURGICAL HISTORY OF 04/2017 SHANIQUA to LAD Family History FAMILY HISTORY Problem Relation Age of Onset - Heart Mother CAD. - Hypertension Mother - Cancer Father Prostate cancer. - Other [OTHER] Father Lower lobectomy, not cancerous. - Cancer Paternal Grandfather Prostate Cancer. - Other [OTHER] Other No allergy, asthma, COPD. Patient Allergies ALLERGIES Allergen Reactions - Lourdes Palomo Dsc [* Current Medications Current Outpatient Prescriptions on File Prior to Visit: budesonide-formoterol (SYMBICORT) 160-4.5 mcg/actuation inhaler Inhale 2 Puffs as instructed twice daily. sertraline (ZOLOFT) 25 mg tablet Take 2 tablets by mouth once daily. fluticasone (FLONASE) 50 mcg/actuation nasal spray Use 2 Sprays in each nostril once daily. Rinse mouth after use. losartan (COZAAR) 25 mg tablet Take 1 tablet by mouth once daily. montelukast (SINGULAIR) 10 mg tablet Take 1 tablet by mouth daily at bedtime. NITROGLYCERIN SUBLINGUAL Dissolve under the tongue as needed. CPAP clopidogrel (PLAVIX) 75 mg tablet Take 1 tablet by mouth once daily. atorvastatin (LIPITOR) 20 mg tablet TAKE 1 TABLET DAILY Albuterol Sulfate 0.63 mg/3 mL nebulizer solution Inhale contents of 1 vial in nebulizer every 4 hours as needed for wheezing pantoprazole DR (PROTONIX) 20 mg tablet TAKE 1 TABLET DAILY BEFORE BREAKFAST. TAKE ON AN EMPTYSTOMACH, 1/2 HOUR BEFORE A MEAL. albuterol HFA (VENTOLIN HFA) 90 mcg/actuation inhaler Inhale 2 Puffs as instructed every 4 hours as needed. metoprolol succinate ER (TOPROL XL) 25 mg 24 hr tablet Take 1 tablet by mouth once daily. aspirin 81 mg chewable tablet Take 81 mg by mouth once daily. No current facility-administered medications on file prior to visit. 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 Social History Main Topics Smoking status: Former Smoker Packs/day: 1.00 Years: 20.00 Types: Cigarettes Quit date: 08/18/1989 Smokeless status: Former User Types: Snuff Quit date: 01/16/2017 Alcohol use: Yes 4.5 oz/week 3 Cans of Beer (12oz) per week Comment: rare-beer Drug use: No Sexual activity: Yes Partners with: Female control/protection: Vasectomy Social History Narrative In current home [place] 2007[place]. 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 Window A/C. No pets in home. Prior owners had cats. Air purifier in LR. Review of Symptoms REVIEW OF SYSTEMS GENERAL: No weight loss, malaise or fevers RESPIRATORY: See HPI CARDIOVASCULAR: Negative for chest pain, leg swelling, hypertension, CHF or palpitations GI: No nausea, vomiting, or diarrhea SKIN: Negative for lesions, rash, and itching EXAM: BP 126/86 (BP Site: Left Arm, BP Position: Sitting, BP Cuff Size: Large Adult) Pulse 68 Temp 36.4 ?C (97.5 ?F) (Tympanic) Resp 18 Wt 107.5 kg (237 lb) SpO2 96% BMI 31.27 kg/m2 General Appearance: Well appearing, alert, in no acute distress, well-hydrated, well nourished.. Lungs: Positive findings: moderate wheezing throughout with rhonchi . Heart: RRR without murmur, gallop, or rubs. No ectopy. Health Maintenance List FECAL OCCULT BLOOD due on 02/22/2017 TETANUS due on 03/03/2017 DIABETES SCREEN due on 08/22/2020 LIPID SCREEN due on 11/23/2021 PROSTATE CANCER SCREENING DISCUSSION Completed INFLUENZA Completed HEPATITIS C SCREENING Completed ASSESSMENT/PLAN: 1. SOB (shortness of breath) - ICD9: 786.05, ICD10: R06.02 (primary diagnosis) Symptoms have not resolved with current therapy. Will contact Dr. Jewell to set up follow up visit for bronchoscopy. Patient has had extensive workup for this condition including cardiac and sinus evaluation. To call with worsening symptoms or further questions. 2. Wheezing - ICD9: 786.07, ICD10: R06.2 See above. 3. Encounter for screening fecal occult blood testing - ICD9: V76.51, ICD10: Z12.11 Due for FOBT testing. Will give kit for home. - FECAL OCCULT BLOOD TEST I spent 25 minutes in the visit, with more than 50% of the total yesw-bp-znft time of the visit in counseling / coordination of care. Vilma Snow MD PROGRESS Observed: 09/19/2017 Status: COMPLETED Source: [place] 11:03 AM [facility] OTHER CAMPUS REPOSITORY HNO ID: [id number] Author: Yousuf Jewell Service: (none) Author Type: Physician Type: Progress Notes Filed: 09/19/2017 11:13 AM Note Text: Outside labs: IgE 70 (0-100) 05/12/2017 MRSA PCR Negative 05/15/2017 D-dimer 1.40 (0.27-0.49) INR 1.0 WBC 10.3 06/24/2017 Eos% 0.9% (0-5%) Hgb 16.1 Hct 46.7 Plt 206 Na 140 06/24/2017 K 3.8 Cl 105 CO2 24 BUN 9 Creat 0.99 Ca 8.7 BNP 12.3 (0-100) 05/14/2017 RAST Negative 05/15/2017 Negative: Dust mite, White elm, White oak, Bermuda grass, [place] blue grass, Ragweed, Eng plantain, Cat dander, Dog epith, Mouse urine. I have received and reviewed the outside records noted above. Yousuf Jewell MD, [facility] [place] CNPN Observed: 09/17/2017 Status: COMPLETED Source: [place] 12:00 AM [facility] REPOSITORY Telephone ([facility]) MACI HOWARD ([id number]) 1955 M Date Time Provider Department 09/17/17 YOUSUF JEWELL [facility] During your visit today, we recorded the following information about you: Yousuf Jewell MD 09/17/2017 4:41 PM Signed IMPRESSION: Methacholine Inhalation Challenge is technically negative with less than 20% drop in FEV1 but, 17% drop highly suggestive of asthma. RECOMMEND: 1. I am looking for results of IgE and eosinophils ordered. Were they drawn? Further investigation into other triggers will be directed by these results. 2. Has tried maximum dose of Dulera and Breo without significant relief. 3. Consider alternate combination inhaled corticosteroid/long acting beta agonist bronchodilator WITH Aerochamber. Both Advair HFA and Symbicort are covered in patient's Rx formulary. Yousuf Jewell MD, [facility] [place] [facility] [address] [place] [id number] P: [phone] F: [phone] [email or web address] Jerica Coombs LPN 09/18/2017 9:13 AM Signed LMTC, need to clarify if patient had labs drawn and which pharmacy patient prefers. Jerica Coombs LPN Del Marcial WOLF 09/19/2017 8:51 AM Signed Pt notes he has labs at [facility] which were done in 05/04(printed for your review). Pt states he has had poor relief from Breo and dulera and open to try advair/ symbicort Jerica Coombs LPN 09/19/2017 12:09 PM Signed TO, See note below and escript if appropriate. Jerica Jewell MD 09/19/2017 5:39 PM Signed IgE, eosinophil counts normal. RAST all negative. Symbicort 160/4.5. 2 inhalations twice daily via Aerochamber, E-scripted to [facility]. Yousuf Jewell MD, [facility] [place] Yousuf Jewell MD 09/19/2017 5:40 PM Signed Addended by: YOUSUF JEWELL MD on: 09/19/2017 05:40 PM Modules accepted: Orders Allergies As of Date: 09/17/2017 Noted Allergy Reaction PARAFON FORTE DSC (CHLORZOXAZONE) 03/11/2006 Date Reviewed: 09/10/2017 Reviewed by: Peter Armando Ma - Fully Assessed Reason for Visit: Results [95] Cmt: MARLEY. Primary Visit Diagnosis:Persistent asthma without complication, unspecified asthma severity [J45.909] Order(s):budesonide-formoterol (SYMBICORT) 160-4.5 mcg/actuation inhalerInhale 2 Puffs as instructed twice daily.Disp: 1 InhalerRfl: 3 Prescriptions as of 09/17/2017 Sig: BUDESONIDE-FORMOTEROL HFA 160* Inhale 2 Puffs as instructed * SERTRALINE 25 MG TABLET Take 2 tablets by mouth once * FLUTICASONE 50 MCG/ACTUATION * Use 2 Sprays in each nostril * LOSARTAN 25 MG TABLET Take 1 tablet by mouth once d* MONTELUKAST 10 MG TABLET Take 1 tablet by mouth daily * NITROGLYCERIN SUBLINGUAL Dissolve under the tongue as* CPAP CLOPIDOGREL 75 MG TABLET Take 1 tablet by mouth once d* ATORVASTATIN 20 MG TABLET TAKE 1 TABLET DAILY ALBUTEROL SULFATE 0.63 MG/3 M* Inhale contents of 1 vial in * PANTOPRAZOLE 20 MG TABLET,DEL* TAKE 1 TABLET DAILY BEFORE BR* ALBUTEROL SULFATE HFA 90 MCG/* Inhale 2 Puffs as instructed * METOPROLOL SUCCINATE ER 25 MG* Take 1 tablet by mouth once d* ASPIRIN 81 MG CHEWABLE TABLET Take 81 mg by mouth once jose maria* Problem List As Of Date 09/17/2017 Noted Resolved DYSPHAGIA [787.2] Esophagitis, unspecified [K20.9] INVALID FOR* More... DIAPHRAGMATIC HERNIA [K44.9] INVALID FOR* FAMILY HX PROSTATIC MALIGNANCY [Z80.42] INVALID FOR* Elevated prostate specific antigen (PSA) [R97.2*INVALID FOR* More... Other and unspecified hyperlipidemia [E78.5] INVALID FOR* More... Prostate cancer [C61] INVALID FOR* HLD (hyperlipidemia) [E78.5] INVALID FOR* GERD (gastroesophageal reflux disease) [K21.9] INVALID FOR* Hypertensive cardiovascular disease [I11.9] INVALID FOR* Stroke (HCC) [I63.9] INVALID FOR* Chronic anticoagulation [Z79.01] INVALID FOR*09/10/2017 Sleep apnea [G47.30] INVALID FOR*06/02/2017 PFO (patent foramen ovale) [Q21.1] INVALID FOR* LESLY on CPAP [G47.33, Z99.89] INVALID FOR* Cerebrovascular accident (CVA) due to embolism *INVALID FOR* LESLY (obstructive sleep apnea) [G47.33] 06/02/2017 More... History of CVA (cerebrovascular accident) [Z86.*INVALID FOR* More... CAD (coronary artery disease) [I25.10] More... Cough [R05] INVALID FOR* SOB (shortness of breath) [R06.02] INVALID FOR* Wheezing [R06.2] INVALID FOR* Depression [F32.9] Prescriptions ordered this encounter Disp Refills Start End BUDESONIDE-FORMOTEROL HFA 160 MCG-4.* 1 In* 3 09/19/2017 Route: INHALATION Sig: Inhale 2 Puffs as instructed twice daily. Medications Discontinued During This Encounter BREO ELLIPTA 200-25 mcg/dose inhaler 07/22/2017 09/19/2017 Class: Historical Med Sig: Disc: Lack of Efficacy Encounter Status:Closed by YOUSUF JEWELL MD on 09/17/17 PROGRESS Observed: 09/10/2017 Status: COMPLETED Source: [place] 9:26 AM [facility] REPOSITORY [facility] ID: [id number] Author: Vilma Espinoza) Gwendolyn Service: (none) Author Type: Physician Type: Progress Notes Filed: 09/10/2017 1:43 PM Note Text: Chief Complaint Patient presents with: F/U 3 Month HPI Maci Howard is a 62 year old male who presents here today for 3 month follow up appointment. Since last visit, patient has followed up with Dr. Jewell regarding his SOB and previous finding of restrictive lung disease on PFTs in January and combination of obstruction and restriction on lung function testing in May. Was told by Dr. Jewell that they do not believe he has COPD, possibly asthma and allergysymptoms in combination. Set up for IgE testing, eosinophil count and methacholine challenge. Told to hold Breo at this time and will await further testing results. Complaining of sinus congestion for the last 3 weeks with purulent sputum. Treating at home with nasal saline OTC which helps some with symptoms. Denies fever, sinus pain, headache, thick purulent drainage. States depression symptoms well controlled on current dose of Zoloft. Has not had further thoughts to harm himself. Is no longer seeing psychiatry and is following with counseling through [facility] which he feels is helping his symptoms. Asking if he is able to discontinue any of his current medications. Discussed that he is on optimal therapy for his multiple conditions including GERD, CAD, CVA history and should remain on all medications at this time. Past medical history, appointments, medications, allergies reviewed. Previous Medical History PAST MEDICAL HISTORY Diagnosis Date - Anxiety - Asthma childhood - CAD (coronary artery disease) s/p SHANIQUA to [facility], seeing Dr. Llanos - Diaphragmatic hernia without mention of obstruction or gangrene - Dyslipidemia - Dysphagia - Dyspnea With wheezing. Spirometry w/o obstruction 02/01 and 06/03. Dr. Jewell 08/2017. Has seen Dr. Pearl - Esophagitis, unspecified - GERD (gastroesophageal reflux disease) - History of CVA (cerebrovascular accident) 06/20/2014 mild - Obesity (BMI 30.0-34.9) - LESLY (obstructive sleep apnea) Consistently compliant with CPAP. - PFO (patent foramen ovale) - Prostate cancer (HCC) 2012 s/p prostatectomySue Previous Surgical History PAST SURGICAL HISTORY Procedure Laterality Date - EGD W/O OR W/BRUSH/WASH 05/01/2007 EGD - EGD W/O OR W/BRUSH/WASH 03/21/2013 [facility] EGD - PAST SURGICAL HISTORY OF submandibular gland removed - PAST SURGICAL HISTORY OF 10/31/14 Robotic Prostatectomy - PAST SURGICAL HISTORY OF 04/2017 SH[facility]QUA to [facility] Family History FAMILY HISTORY Problem Relation Age of Onset - Heart Mother CAD. - Hypertension Mother - Cancer Father Prostate cancer. - Other [OTHER] Father Lower lobectomy, not cancerous. - Cancer Paternal Grandfather Prostate Cancer. - Other [OTHER] Other No allergy, asthma, COPD. Patient Allergies ALLERGIES Allergen Reactions - [facility] [* Current Medications Current Outpatient Prescriptions on File Prior to Visit: losartan (COZAAR) 25 mg tablet Take 1 tablet by mouth once daily. montelukast (SINGULAIR) 10 mg tablet Take 1 tablet by mouth daily at bedtime. sertraline (ZOLOFT) 25 mg tablet Take 1 tablet by mouth once daily. (Patient taking differently: Take 50 mg by mouth once daily.) NITROGLYCERIN SUBLINGUAL Dissolve under the tongue as needed. CPAP clopidogrel (PLAVIX) 75 mg tablet Take 1 tablet by mouth once daily. atorvastatin (LIPITOR) 20 mg tablet TAKE 1 TABLET DAILY Albuterol Sulfate 0.63 mg/3 mL nebulizer solution Inhale contents of 1 vial in nebulizer every 4 hours as needed for wheezing pantoprazole DR (PROTONIX) 20 mg tablet TAKE 1 TABLET DAILY BEFORE BREAKFAST. TAKE ON AN EMPTYSTOMACH, 1/2 HOUR BEFORE A MEAL. albuterol HFA (VENTOLIN HFA) 90 mcg/actuation inhaler Inhale 2 Puffs as instructed every 4 hours as needed. metoprolol succinate ER (TOPROL XL) 25 mg 24 hr tablet Take 1 tablet by mouth once daily. aspirin 81 mg chewable tablet Take 81 mg by mouth once daily. BREO ELLIPTA 200-25 mcg/dose inhaler No current facility-administered medications on file prior to visit. 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 Social History Main Topics Smoking status: Former Smoker Packs/day: 1.00 Years: 20.00 Types: Cigarettes Quit date: 08/18/1989 Smokeless status: Former User Types: Snuff Quit date: 01/16/2017 Alcohol use: Yes 4.5 oz/week 3 Cans of Beer (12oz) per week Comment: rare-beer Drug use: No Sexual activity: Yes Partners with: Female control/protection: Vasectomy Social History Narrative [place] 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 Window A/C. No pets in home. Prior owners had cats. Air purifier in LR. Review of Symptoms REVIEW OF SYSTEMS GENERAL: No weight loss, malaise or fevers NECK: Negative for lumps, goiter, pain and significant neck swelling RESPIRATORY: Cough; productive with yellow sputum, Dyspnea, Wheezing CARDIOVASCULAR: Negative for chest pain, leg swelling, hypertension, CHF or palpitations GI: No nausea, vomiting, or diarrhea SKIN: Negative for lesions, rash, and itching EXAM: BP 120/84 Pulse 64 Resp 12 Wt 105.7 kg (233 lb) SpO2 96% BMI 30.74 kg/m2 General Appearance: Well appearing, alert, in no acute distress, well-hydrated, well nourished.. Skin: Skin color, texture, turgor normal, no suspicious rashes or lesions. Head: Normocephalic, no masses, lesions, tenderness or abnormalities. Ears: External ears normal, canals clear. Nose/Sinuses: Positive findings: mucosa erythematous and swollen. Negative for sinus TTP. Oropharynx: Lips, mucosa, and tongue normal, teeth and gums normal, oropharynx normal. Neck: Supple, no adenopathy; thyroid symmetric, normal size, no bruits. Lungs: Positive findings: moderate wheezing , rhonchi bilaterally with good air entry. Heart: RRR without murmur, gallop, or rubs. No ectopy. Abdomen: Normal abdominal exam, Abdomen soft, non-tender. Bowel sounds normal. No masses, organomegaly. Extremities: No deformities, edema, skin discoloration, clubbing or cyanosis. Good capillary refill. . Health Maintenance List FECAL OCCULT BLOOD due on 02/22/2017 TETANUS due on 03/03/2017 DIABETES SCREEN due on 08/22/2020 LIPID SCREEN due on 11/23/2021 PROSTATE CANCER SCREENING DISCUSSION Completed INFLUENZA Completed HEPATITIS C SCREENING Completed Data reviewed Component Latest Ref Rng AND Units 11/23/2016 02/15/2017 08/22/2017 08/27/2017 WBC 3.70 - 11.00 k/uL 5.23 RBC 4.20 - 6.00 m/uL 5.31 Hemoglobin 13.0 - 17.0 g/dL 17.2 (H) Hematocrit 39.0 - 51.0 % 51.0 MCV 80.0 - 100.0 fL 96.0 MCH 26.0 - 34.0 pG 32.4 MCHC 30.5 - 36.0 g/dL 33.7 RDW-CV 11.5 - 15.0 % 12.9 Platelet Count 150 - 400 k/uL 210 MPV 9.0 - 12.7 fL 9.3 Neut% % 56.6 Abs Neut (ANC) 1.45 - 7.50 k/uL 2.96 Lymph% % 22.6 Abs Lymph 1.00 - 4.00 k/uL 1.18 [place]% % 10.5 Abs [place] 0.00 - 0.86 k/uL 0.55 Eosin% % 9.0 Abs Eosin 0.00 - 0.45 k/uL 0.47 (H) Baso% % 1.3 Abs Baso 0.00 - 0.10 k/uL 0.07 Nucleated Reds 0 /100 WBC 0.0 Absolute nRBC k/uL 0.00 Diff Type Auto Diff Protein, Total 6.3 - 8.0 g/dL 6.3 Albumin 3.9 - 4.9 g/dL 3.1 (L) Calcium 8.5 - 10.2 mg/dL 8.8 Bilirubin, Total 0.2 - 1.3 mg/dL 0.6 Alkaline Phosphatase 36 - 108 U/L 103 AST 14 - 40 U/L 18 Glucose 74 - 99 mg/dL 89 BUN 9 - 24 mg/dL 21 Creatinine 0.73 - 1.22 mg/dL 0.99 Sodium 136 - 144 mmol/L 143 Potassium 3.7 - 5.1 mmol/L 4.3 Chloride 97 - 105 mmol/L 109 (H) CO2 22 - 30 mmol/L 23 Anion Gap 9 - 18 mmol/L 11 ALT 10 - 54 U/L 15 eGFR- >60 eGFR-All Other Races . >60 Triglyceride 30 - 149 mg/dL 62 Cholesterol, Total 100 - 199 mg/dL 171 HDL Cholesterol >45 mg/dL 40 (L) VLDL Cholesterol 6 - 40 mg/dL 12 LDL Cholesterol 60 - 129 mg/dL 119 Fasting Time hrs 12 TC:HDL Ratio 1.00 - 5.00 4.28 LDL:HDL Ratio 0.50 - 3.55 2.98 Non HDL Cholesterol 90 - 159 mg/dL 131 Hemoglobin A1C 4.3 - 5.6 % 5.2 Estimated Average Glucose mg/dL 103 Hep C Antibody IA Negative Negative PSA 0.00 - 2.59 ng/mL <0.03 <0.03 ASSESSMENT/PLAN: 1. Moderate episode of recurrent major depressive disorder (HCC) - ICD9: 296.32, ICD10: F33.1 (primary diagnosis) Controlled on Zoloft. Continue counseling. 2. Anxiety - ICD9: 300.00, ICD10: F41.9 See above - SERTRALINE 25 MG TABLET 3. Acute recurrent sinusitis, unspecified location - ICD9: 461.9, ICD10: J01.91 Will give flonase to help with nasal congestion symptoms and have patient call if symptoms not improving in next week. Would call in abx at that time. - FLUTICASONE 50 MCG/ACTUATION NASAL SPRAY,SUSPENSION 4. SOB (shortness of breath) - ICD9: 786.05, ICD10: R06.02 Patient to follow up with Dr. Finch as recommended. Will await blood work and methacholine challenge. Hold Breo. 5. Wheezing - ICD9: 786.07, ICD10: R06.2 Patient to follow up with Dr. Finch as recommended. Will await blood work and methacholine challenge. Hold Breo. 6. Coronary artery disease involving mentasta heart without angina pectoris, unspecified vessel or lesion type - ICD9: 414.01, ICD10: I25.10 Continue treatment as recommended through Dr. Llanos's office. 7. Gastroesophageal reflux disease, esophagitis presence not specified - ICD9: 530.81, ICD10: K21.9 - Continue treatment with Protonix 20 mg QD Vilma Snow MD CNOV Observed: 09/10/2017 Status: COMPLETED Source: [place] 9:20 AM [facility] REPOSITORY Office Visit (FAMPWS) ADONAYSONIAMACI TOBAR ([id number]) 1955 M Date Time Provider Department 09/10/17 9:20 AM V[facility]MA SNOW[facility] During your visit today, we recorded the following information about you: Pulse Respiration Blood pressure Weight 64/minute 12/minute 120/84 105.7 kg Vilma Snow MD 09/10/2017 1:43 PM Signed Chief Complaint Patient presents with: F/U 3 Month HPI Maci Murillo Feroz is a 62 year old male who presents here today for 3 month follow up appointment. Since last visit, patient has followed up with Dr. Jewell regarding his SOB and previous finding of restrictive lung disease on PFTs in January and combination of obstruction and restriction on lung function testing in May. Was told by Dr. Jewell that they do not believe he has COPD, possibly asthma and allergysymptoms in combination. Set up for IgE testing, eosinophil count and methacholine challenge. Told to hold Breo at this time and will await further testing results. Complaining of sinus congestion for the last 3 weeks with purulent sputum. Treating at home with nasal saline OTC which helps some with symptoms. Denies fever, sinus pain, headache, thick purulent drainage. States depression symptoms well controlled on current dose of Zoloft. Has not had further thoughts to harm himself. Is no longer seeing psychiatry and is following with counseling through [facility] which he feels is helping his symptoms. Asking if he is able to discontinue any of his current medications. Discussed that he is on optimal therapy for his multiple conditions including GERD, CAD, CVA history and should remain on all medications at this time. Past medical history, appointments, medications, allergies reviewed. Previous Medical History PAST MEDICAL HISTORY Diagnosis Date - Anxiety - Asthma childhood - CAD (coronary artery disease) s/p SHANIQUA to [facility], seeing Dr. Llanos - Diaphragmatic hernia without mention of obstruction or gangrene - Dyslipidemia - Dysphagia - Dyspnea With wheezing. Spirometry w/o obstruction 02/01 and 06/03. Dr. Jewell 08/2017. Has seen Dr. Pearl - Esophagitis, unspecified - GERD (gastroesophageal reflux disease) - History of CVA (cerebrovascular accident) 06/20/2014 mild - Obesity (BMI 30.0-34.9) - LESLY (obstructive sleep apnea) Consistently compliant with CPAP. - PFO (patent foramen ovale) - Prostate cancer (HCC) 2012 s/p prostatectomySue Previous Surgical History PAST SURGICAL HISTORY Procedure Laterality Date - EGD W/O OR W/BRUSH/WASH 05/01/2007 EGD - EGD W/O OR W/BRUSH/WASH 03/21/2013 [facility] EGD - PAST SURGICAL HISTORY OF submandibular gland removed - PAST SURGICAL HISTORY OF 10/31/14 Robotic Prostatectomy - PAST SURGICAL HISTORY OF 04/2017 SH[facility]QUA to [facility] Family History FAMILY HISTORY Problem Relation Age of Onset - Heart Mother CAD. - Hypertension Mother - Cancer Father Prostate cancer. - Other [OTHER] Father Lower lobectomy, ANDquot;not cancerous.ANDquot; - Cancer Paternal Grandfather Prostate Cancer. - Other [OTHER] Other No allergy, asthma, COPD. Patient Allergies ALLERGIES Allergen Reactions - [facility] [* Current Medications Current Outpatient Prescriptions on File Prior to Visit: losartan (COZAAR) 25 mg tablet Take 1 tablet by mouth once daily. montelukast (SINGULAIR) 10 mg tablet Take 1 tablet by mouth daily at bedtime. sertraline (ZOLOFT) 25 mg tablet Take 1 tablet by mouth once daily. (Patient taking differently: Take 50 mg by mouth once daily.) NITROGLYCERIN SUBLINGUAL Dissolve under the tongue as needed. CPAP clopidogrel (PLAVIX) 75 mg tablet Take 1 tablet by mouth once daily. atorvastatin (LIPITOR) 20 mg tablet TAKE 1 TABLET DAILY Albuterol Sulfate 0.63 mg/3 mL nebulizer solution Inhale contents of 1 vial in nebulizer every 4 hours as needed for wheezing pantoprazole DR (PROTONIX) 20 mg tablet TAKE 1 TABLET DAILY BEFORE BREAKFAST. TAKE ON AN EMPTYSTOMACH, 1/2 HOUR BEFORE A MEAL. albuterol HFA (VENTOLIN HFA) 90 mcg/actuation inhaler Inhale 2 Puffs as instructed every 4 hours as needed. metoprolol succinate ER (TOPROL XL) 25 mg 24 hr tablet Take 1 tablet by mouth once daily. aspirin 81 mg chewable tablet Take 81 mg by mouth once daily. BREO ELLIPTA 200-25 mcg/dose inhaler No current facility-administered medications on file prior to visit. 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 Social History Main Topics Smoking status: Former Smoker Packs/day: 1.00 Years: 20.00 Types: Cigarettes Quit date: 08/18/1989 Smokeless status: Former User Types: Snuff Quit date: 01/16/2017 Alcohol use: Yes 4.5 oz/week 3 Cans of Beer (12oz) per week Comment: rare-beer Drug use: No Sexual activity: Yes Partners with: Female control/protection: Vasectomy Social History Narrative [place] 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 Window A/C. No pets in home. Prior owners had cats. Air purifier in LR. Review of Symptoms REVIEW OF SYSTEMS GENERAL: No weight loss, malaise or fevers NECK: Negative for lumps, goiter, pain and significant neck swelling RESPIRATORY: Cough; productive with yellow sputum, Dyspnea, Wheezing CARDIOVASCULAR: Negative for chest pain, leg swelling, hypertension, CHF or palpitations GI: No nausea, vomiting, or diarrhea SKIN: Negative for lesions, rash, and itching EXAM: BP 120/84 Pulse 64 Resp 12 Wt 105.7 kg (233 lb) SpO2 96% BMI 30.74 kg/m2 General Appearance: Well appearing, alert, in no acute distress, well-hydrated, well nourished.. Skin: Skin color, texture, turgor normal, no suspicious rashes or lesions. Head: Normocephalic, no masses, lesions, tenderness or abnormalities. Ears: External ears normal, canals clear. Nose/Sinuses: Positive findings: mucosa erythematous and swollen. Negative for sinus TTP. Oropharynx: Lips, mucosa, and tongue normal, teeth and gums normal, oropharynx normal. Neck: Supple, no adenopathy; thyroid symmetric, normal size, no bruits. Lungs: Positive findings: moderate wheezing , rhonchi bilaterally with good air entry. Heart: RRR without murmur, gallop, or rubs. No ectopy. Abdomen: Normal abdominal exam, Abdomen soft, non-tender. Bowel sounds normal. No masses, organomegaly. Extremities: No deformities, edema, skin discoloration, clubbing or cyanosis. Good capillary refill. . Health Maintenance List FECAL OCCULT BLOOD due on 02/22/2017 TETANUS due on 03/03/2017 DIABETES SCREEN due on 08/22/2020 LIPID SCREEN due on 11/23/2021 PROSTATE CANCER SCREENING DISCUSSION Completed INFLUENZA Completed HEPATITIS C SCREENING Completed Data reviewed Component Latest Ref Rng ANDamp; Units 11/23/2016 02/15/2017 08/22/2017 08/27/2017 WBC 3.70 - 11.00 k/uL 5.23 RBC 4.20 - 6.00 m/uL 5.31 Hemoglobin 13.0 - 17.0 g/dL 17.2 (H) Hematocrit 39.0 - 51.0 % 51.0 MCV 80.0 - 100.0 fL 96.0 MCH 26.0 - 34.0 pG 32.4 MCHC 30.5 - 36.0 g/dL 33.7 RDW-CV 11.5 - 15.0 % 12.9 Platelet Count 150 - 400 k/uL 210 MPV 9.0 - 12.7 fL 9.3 Neut% % 56.6 Abs Neut (ANC) 1.45 - 7.50 k/uL 2.96 Lymph% % 22.6 Abs Lymph 1.00 - 4.00 k/uL 1.18 [place]% % 10.5 Abs [place] 0.00 - 0.86 k/uL 0.55 Eosin% % 9.0 Abs Eosin 0.00 - 0.45 k/uL 0.47 (H) Baso% % 1.3 Abs Baso 0.00 - 0.10 k/uL 0.07 Nucleated Reds 0 /100 WBC 0.0 Absolute nRBC k/uL 0.00 Diff Type Auto Diff Protein, Total 6.3 - 8.0 g/dL 6.3 Albumin 3.9 - 4.9 g/dL 3.1 (L) Calcium 8.5 - 10.2 mg/dL 8.8 Bilirubin, Total 0.2 - 1.3 mg/dL 0.6 Alkaline Phosphatase 36 - 108 U/L 103 AST 14 - 40 U/L 18 Glucose 74 - 99 mg/dL 89 BUN 9 - 24 mg/dL 21 Creatinine 0.73 - 1.22 mg/dL 0.99 Sodium 136 - 144 mmol/L 143 Potassium 3.7 - 5.1 mmol/L 4.3 Chloride 97 - 105 mmol/L 109 (H) CO2 22 - 30 mmol/L 23 Anion Gap 9 - 18 mmol/L 11 ALT 10 - 54 U/L 15 eGFR- ANDgt;60 eGFR-All Other Races . ANDgt;60 Triglyceride 30 - 149 mg/dL 62 Cholesterol, Total 100 - 199 mg/dL 171 HDL Cholesterol ANDgt;45 mg/dL 40 (L) VLDL Cholesterol 6 - 40 mg/dL 12 LDL Cholesterol 60 - 129 mg/dL 119 Fasting Time hrs 12 TC:HDL Ratio 1.00 - 5.00 4.28 LDL:HDL Ratio 0.50 - 3.55 2.98 Non HDL Cholesterol 90 - 159 mg/dL 131 Hemoglobin A1C 4.3 - 5.6 % 5.2 Estimated Average Glucose mg/dL 103 Hep C Antibody IA Negative Negative PSA 0.00 - 2.59 ng/mL ANDlt;0.03 ANDlt;0.03 ASSESSMENT/PLAN: 1. Moderate episode of recurrent major depressive disorder (HCC) - ICD9: 296.32, ICD10: F33.1 (primary diagnosis) Controlled on Zoloft. Continue counseling. 2. Anxiety - ICD9: 300.00, ICD10: F41.9 See above - SERTRALINE 25 MG TABLET 3. Acute recurrent sinusitis, unspecified location - ICD9: 461.9, ICD10: J01.91 Will give flonase to help with nasal congestion symptoms and have patient call if symptoms not improving in next week. Would call in abx at that time. - FLUTICASONE 50 MCG/ACTUATION NASAL SPRAY,SUSPENSION 4. SOB (shortness of breath) - ICD9: 786.05, ICD10: R06.02 Patient to follow up with Dr. Finch as recommended. Will await blood work and methacholine challenge. Hold Breo. 5. Wheezing - ICD9: 786.07, ICD10: R06.2 Patient to follow up with Dr. Finch as recommended. Will await blood work and methacholine challenge. Hold Breo. 6. Coronary artery disease involving mentasta heart without angina pectoris, unspecified vessel or lesion type - ICD9: 414.01, ICD10: I25.10 Continue treatment as recommended through Dr. Llanos's office. 7. Gastroesophageal reflux disease, esophagitis presence not specified - ICD9: 530.81, ICD10: K21.9 - Continue treatment with Protonix 20 mg QD Vilma Snow MD Referring Provider: SELF [[id number]] Allergies As of Date: 09/10/2017 Noted Allergy Reaction PARAFON FORTE DSC (CHLORZOXAZONE) 03/11/2006 Date Reviewed: 09/10/2017 Reviewed by: Peter Armando Ma - Fully Assessed Reason for Visit: F/U 3 Month [443] Primary Visit Diagnosis:Moderate episode of recurrent major depressive disorder (HCC) [F33.1] Other Visit Diagnoses:Anxiety [F41.9] Acute recurrent sinusitis, unspecified location [J01.91] SOB (shortness of breath) [R06.02] Wheezing [R06.2] Coronary artery disease involving mentasta heart without angina pectoris, unspecified vessel or lesion type [I25.10] Gastroesophageal reflux disease, esophagitis presence not specified [K21.9] Order(s):sertraline (ZOLOFT) 25 mg tabletTake 2 tablets by mouth once daily.Disp: Rfl: fluticasone (FLONASE) 50 mcg/actuation nasal sprayUse 2 Sprays in each nostril once daily. Rinse mouth after use.Disp: 1 BottleRfl: 2 Prescriptions as of 09/10/2017 Sig: SERTRALINE 25 MG TABLET Take 2 tablets by mouth once * LOSARTAN 25 MG TABLET Take 1 tablet by mouth once d* MONTELUKAST 10 MG TABLET Take 1 tablet by mouth daily * NITROGLYCERIN SUBLINGUAL Dissolve under the tongue as* CPAP CLOPIDOGREL 75 MG TABLET Take 1 tablet by mouth once d* ATORVASTATIN 20 MG TABLET TAKE 1 TABLET DAILY ALBUTEROL SULFATE 0.63 MG/3 M* Inhale contents of 1 vial in * PANTOPRAZOLE 20 MG TABLET,DEL* TAKE 1 TABLET DAILY BEFORE BR* ALBUTEROL SULFATE HFA 90 MCG/* Inhale 2 Puffs as instructed * METOPROLOL SUCCINATE ER 25 MG* Take 1 tablet by mouth once d* ASPIRIN 81 MG CHEWABLE TABLET Take 81 mg by mouth once jose maria* FLUTICASONE 50 MCG/ACTUATION * Use 2 Sprays in each nostril * BREO ELLIPTA 200 MCG-25 MCG/D* Medication notes this encounter BREO ELLIPTA 200 MCG-25 MCG/DOSE POWDER FOR INHALATION >> Peter Armando Ma 09/10/2017 9:19 AM >> PETER ARMANDO MA Sep 10, 2017 9:19 AM On hold for testing from [employer] Problem List As Of Date 09/10/2017 Noted Resolved DYSPHAGIA [787.2] Esophagitis, unspecified [K20.9] INVALID FOR* More... DIAPHRAGMATIC HERNIA [K44.9] INVALID FOR* FAMILY HX PROSTATIC MALIGNANCY [Z80.42] INVALID FOR* Elevated prostate specific antigen (PSA) [R97.2*INVALID FOR* More... Other and unspecified hyperlipidemia [E78.5] INVALID FOR* More... Prostate cancer [C61] INVALID FOR* HLD (hyperlipidemia) [E78.5] INVALID FOR* GERD (gastroesophageal reflux disease) [K21.9] INVALID FOR* Hypertensive cardiovascular disease [I11.9] INVALID FOR* Stroke (HCC) [I63.9] INVALID FOR* Chronic anticoagulation [Z79.01] INVALID FOR*09/10/2017 Sleep apnea [G47.30] INVALID FOR*06/02/2017 PFO (patent foramen ovale) [Q21.1] INVALID FOR* LESLY on CPAP [G47.33, Z99.89] INVALID FOR* Cerebrovascular accident (CVA) due to embolism *INVALID FOR* LESLY (obstructive sleep apnea) [G47.33] 06/02/2017 More... History of CVA (cerebrovascular accident) [Z86.*INVALID FOR* More... CAD (coronary artery disease) [I25.10] More... Cough [R05] INVALID FOR* SOB (shortness of breath) [R06.02] INVALID FOR* Wheezing [R06.2] INVALID FOR* Depression [F32.9] Prescriptions ordered this encounter Disp Refills Start End SERTRALINE 25 MG TABLET 09/10/2017 Class: Med Update Route: ORAL Sig: Take 2 tablets by mouth once daily. FLUTICASONE 50 MCG/ACTUATION NASAL S* 1 Rip* 2 09/10/2017 Route: EACH NOSTRIL Sig: Use 2 Sprays in each nostril once daily. Rinse mouth after use. Medications Discontinued During This Encounter sertraline (ZOLOFT) 25 mg tablet 30 t* 2 06/12/2017 09/10/2017 Route: ORAL Sig: Take 1 tablet by mouth once daily. Patient taking differently: Take 50 mg by mouth once daily. Disc: Reason for discontinue is not on file. Disposition: Return in about 3 months (around 12/09/2017). Follow-up and Disposition History Recorded Encounter Status:Closed by VILMA SNOW MD on 09/10/17 ALLERGIES ALLERGIES DATE TYPE / CODE NAME / CODE REACTION SEVERITY SOURCE 09/01/2018 Drug No Known Unknown [place] Allergy/416 Allergies/[id number] [facility] [id number]([facility] 8(RXNORM) [facility] ED CT) Repository 03/11/2006 DRUG CHLORZOXAZONE [facility] INGREDI/419 [facility] 536224(SN Repository ED CT) ENCOUNTERS ENCOUNTERS ADMIT/DISCHARGE ACCOUNT ADMITTING ENCOUNTER LOCATION SOURCE NUMBER CLASS 09/02/2018/09/03/19 [id number] Ambulatory [address] Repository 09/01/2018/09/01/19 [id number] Emergency [address] ing:ED Repository 08/24/2018/08/24/19 [id number] Ambulatory BMSBuilding:B [place].PMW [facility] Repository 08/01/2018 [id number] [facility] ing:CT Repository 07/31/2018 [id number] Ambulatory BMSBuilding:W Rachana [facility] Repository 07/31/2018 [id number] Ambulatory [facility] ing:PSN Repository 07/22/2018/07/22/20 [id number] Ambulatory BMSBuilding:Kerline Reich 18 [place] [place] 06/22/2018/06/22/20 [id number] Ambulatory [address] Repository 06/12/2018/06/15/20 [id number] Ambulatory [address] Repository 04/29/2018/04/29/20 [id number] Ambulatory BMSBuilding:Kerline Reich 18 MS.[facility] Repository 04/23/2018 [id number] Ambulatory [facility] ing:LABSPEC Repository 04/23/2018/04/23/20 [id number] Ambulatory BMSBuilding:Kerline Reich 18 [place] [place] 04/14/2018 [id number] Ambulatory [facility]MSBuilding:Kerline [place] [place] 04/14/2018 [id number] Ambulatory [facility] ing:CVS Repository 04/14/2018 [id number] Ambulatory BMSBuilding:W Rachana [facility] Repository 04/06/2018/04/06/20 [id number] Ambulatory [address] Repository 04/06/2018/04/06/20 [id number] Ambulatory BMSBuilding:Kerline Reich 18 [place].[facility] Repository 04/03/2018 [id number] Ambulatory BMSBuilding:Kerline Reich [place].[facility] Repository 02/26/2018/02/28/20 [id number] Ambulatory [address] Repository 02/23/2018/02/24/20 [id number] Ambulatory [address] Repository 12/10/2017/12/11/19 [id number] Ambulatory [address] Repository 12/08/2017/12/09/19 [id number] Ambulatory [address] Repository 11/10/2017/11/11/19 [id number] BEST, Ambulatory [address] Repository 10/28/2017/10/29/19 [id number] Ambulatory BMSBuilding:Kerline Reich 18 [place].[facility] Repository 10/15/2017/10/15/19 [id number] Ambulatory BMSBuilding:B [place]achana 18 [place] [place] 10/15/2017 [id number] Ambulatory [place] R[facility] ing:LAB Repository 09/26/2017/09/26/19 [id number] Ambulatory [address] Repository 09/17/2017 [id number] Ambulatory [facility] Other [place] Repository 09/10/2017/09/10/19 [id number] Ambulatory [address] Repository 09/10/2017 [id number] Ambulatory BMSBuilding:B [place] Repository 09/10/2017 [id number] Ambulatory BMSBuilding:Kerline Reich [place].[facility] Repository PAYERS PAYERS ENCOUNTER GUARANTOR PAYER SUBSCRIBER SOURCE 09/01/2018 MACI Reich [id number] Insurance:MEDICAL SPEELMANDOB: [facility] [id number] [address]Ubg: Number: Repository [id number] (HP) Date:6759-99-30WV [address] [address]KX: 09/01/2018 Secondary NOT GIVENUNK [place] Insurance:SELF PAY [facility] Number: Effective Repository Date:2018-09-01 08/24/2018 MACI Reich [id number] Insurance:MEDICAL SPEELMANDOB: [facility] [id number] Health Center [address]Jcp: Number: Repository [id number] (HP) Date:7474-11-84FZ [address] [address]VM: 08/24/2018 Secondary NOT GIVENUNK [place] Insurance:SELF PAY [facility] Number: Effective Repository Date:2018-08-20 08/01/2018 MACI Reich [id number] Insurance:MEDICAL SPEELMANDOB: [facility] [id number] Health Center [address]Pyj: Number: Repository [id number] (HP) Date:7158-69-93NY [address] [place] [address]WJ: 08/01/2018 Secondary NOT GIVENUNK [place] Insurance:SELF PAY [facility] Number: Effective Repository Date:2018-07-23 07/31/2018 MACI Murillo Primary MARCUS Reich [id number] Insurance:MEDICAL SPEELMANDOB: [facility] [id number] Health Center [address]Zwj: Number: Repository [id number] (HP) Date:6460-00-55BX [address] [place] [address]KF: 07/31/2018 Secondary NOT GIVENUNK [place] Insurance:SELF PAY [facility] Number: Effective Repository Date:2018-07-31 07/31/2018 MACI Murillo Primary MARCUS Reich [id number] Insurance:MEDICAL SPEELMANDOB: [facility] [id number] Health Center [address]Klv: Number: Repository [id number] (HP) Date:8204-49-50DT [address] [address]SQ: 07/31/2018 Secondary NOT GIVENUNK [place] Insurance:SELF PAY [facility] Number: Effective Repository Date:2018-07-22 07/22/2018 MACI Murillo Erica Reich [id number] Insurance:MEDICAL SPEELMANDOB: [facility] [id number] Health Center [address]Fzo: Number: Repository [id number] (HP) Date:9760-52-51YK [address] [address]MI: 07/22/2018 Secondary NOT GIVENUNK [place] Insurance:SELF PAY [facility] Number: Effective Repository Date:2018-07-15 04/29/2018 MACI Reich [id number] Insurance:MEDICAL SPEELMANDOB: [facility] [id number] Health Center [address]Ndg: Number: Repository [id number] (HP) Date:8388-92-06IX [place] [phone]: 04/29/2018 Secondary NOT GIVENUNK [place] Insurance:SELF PAY [facility] Number: Effective Repository Date:2018-04-23 04/23/2018 MACI Murillo Primary MARCUS Reich [id number] Insurance:MEDICAL SPEELMANDOB: [facility] [id number] [facility] [place] [address]Tiv: Number: Repository [id number] (HP) Date:5987-52-87XT [place] [phone]: 04/23/2018 Secondary NOT GIVENUNK [place] Insurance:SELF PAY [facility] Number: Effective Repository Date:2018-04-23 04/23/2018 MACI Murillo Primary MARCUS Reich [id number] Insurance:MEDICAL SPEELMANDOB: [facility] [id number] [address]Lxt: Number: Repository [id number] (HP) Date:8562-20-64QB [place] [phone]: 04/23/2018 Secondary NOT GIVENUNK [place] Insurance:SELF PAY [facility] Number: Effective Repository Date:2018-04-22 04/14/2018 MACI Murillo Primary MARCUS Reich [id number] Insurance:MEDICAL SPEELMANDOB: [facility] [id number] [facility] [place] [address]Pcs: Number: Repository [id number] (HP) Date:0716-27-39KP [address] [address]TQ: 04/14/2018 Secondary NOT GIVENUNK R[place] Insurance:SELF PAY [facility] Number: Effective Repository Date:2018-04-06 04/14/2018 MACI Murillo Primary MARCUS Reich [id number] Insurance:MEDICAL SPEELMANDOB: [facility] 1514-23-53PMQKayenta Health Center [address]Lux: Number: Repository [id number] (HP) Date:7628-91-80QL [address] [address]AC: 04/14/2018 Secondary NOT GIVENUNK [place] Insurance:SELF PAY [facility] Number: Effective Repository Date:2018-04-06 04/14/2018 MACI Murillo Primary MARCUS Wong [place] [id number] Insurance:MEDICAL SPEELMANDOB: [facility] [id number] Health Center [address]Fzd: Number: Repository [id number] (HP) Date:9130-71-51AU [address] [address]YJ: 04/14/2018 Secondary NOT GIVENUNK [place] Insurance:SELF PAY [facility] Number: Effective Repository Date:2018-04-14 04/06/2018 MACI Murillo Primary MARCUS Reich [id number] Insurance:MEDICAL SPEELMANDOB: [facility] [id number] Health Center [address]Fae: Number: Repository [id number] (HP) Date:4215-36-82MJ [address] [address]WF: 04/06/2018 Secondary NOT GIVENUNK [place] Insurance:SELF PAY [facility] Number: Effective Repository Date:2018-04-06 04/03/2018 MACI Murillo Primary MARCUS Reich [id number] Insurance:MEDICAL SPEELMANDOB: [facility] [id number] Health Center [address]Cxx: Number: Repository [id number] (HP) Date:9452-45-71CP [address] [place] [address]VY: 04/03/2018 Secondary NOT GIVENUNK [place] Insurance:SELF PAY [facility] Number: Effective Repository Date:2018-04-03 10/28/2017 MACI Maldonado MARCUS Wong [place] [id number] Insurance:MEDICAL SPEELMANDOB: [facility] [id number] Health Center [address]Rlh: Number: Repository [id number] (HP) Date:4764-82-20RE [address] [place] [phone]: 10/28/2017 Secondary NOT GIVENUNK [place] Insurance:SELF PAY [facility] Number: Effective Repository Date:2017-10-09 10/15/2017 MACI Maldonado MARCUS Wong [place] [id number] Insurance:MEDICAL SPEELMANDOB: [facility] [id number] Health Center [address]Vdh: Number: Repository [id number] (HP) Date:6106-04-61FR [address] [address]XB: 10/15/2017 Secondary NOT GIVENUNK [place] Insurance:SELF PAY [facility] Number: Effective Repository Date:2017-07-22 10/15/2017 MACI Maldonado MARCUS Wong [place] [id number] Insurance:MEDICAL SPEELMANDOB: [facility] [id number] Health Center [address]Bwv: Number: Repository [id number] (HP) Date:8852-96-45GK [address] [place] [address]NN: 10/15/2017 Secondary NOT GIVENUNK [place] Insurance:SELF PAY [facility] Number: Effective Repository Date:2017-10-15 09/10/2017 MACI Murillo Primary MARCUS Reich [id number] Insurance:MEDICAL SPEELMANDOB: [facility] [id number] Health Center [address]Ege: Number: Repository [id number] (HP) Date:5170-58-15PV [address] [address]VM: 09/10/2017 Secondary NOT GIVENUNK [place] Insurance:SELF PAY [facility] Number: Effective Repository Date:2017-09-10 09/10/2017 MACI Murillo Primary MARCUS Reich [id number] Insurance:MEDICAL SPEELMANDOB: [facility] [id number] Health Center [address]Vdm: Number: Repository [id number] (HP) Date:4805-22-51GX [address] [place] [address]RL: 09/10/2017 Secondary NOT GIVENUNK [place] Insurance:SELF PAY [facility] Number: Effective Repository Date:2017-09-10
== END ==
PROVIDERS: Family Provider Family Medicine; PCP Family Medicine; Referring Provider Internal Medicine Critical Care Medicine; Visit Provider Internal Medicine Critical Care Medicine
DX: R93.89 Abnormal findings on diagnostic imaging of other specified body structures (principal); J45.909 Unspecified asthma, uncomplicated
CPT/HCPCS: 94060; 94726; 94729

== ENCOUNTER → 2018-08-01 06:54 | Outpatient (CLI) | payer OTHER, SELFPAY ==
[2017-05-16 09:58] VITALS: BMI 30.9
--- NOTE | 2018-08-01 06:57 | CT_ITS ---
STUDY: CT CHEST WITHOUT CONTRAST REASON FOR EXAM: Male, 63 years old. Wheezing. RADIATION DOSAGE (If Supplied By Facility): CTDIvol = ( 15.34 ) mGy, DLP = ( 563.67 ) mGycm TECHNIQUE: Transaxial imaging was performed without the administration of intravenous contrast material. Individualized dose optimization techniques were used for this CT. COMPARISON: June 07, 2017 FINDINGS: Linear opacities and interstitial thickening is noted at the lung bases. There are mild diffuse emphysematous changes in the lungs. There is a stable 5 mm nodule in the right lower lobe axial image 94. There is mild bronchiectasis in the upper and lower lobes. There is no demonstrated pleural abnormality. Normal heart and pericardium. Normal mediastinum. Normal hilar regions. Normal unenhanced pulmonary arteries. Normal aorta arch and descending thoracic aorta. Normal osseous structures. There is no demonstrated abnormality of the visualized upper abdomen. CT/Chest without Contrast IMPRESSION: Stable interstitial thickening and linear opacity of the lung bases may represent a fibrotic process. Mild bronchiectasis appears stable. Stable small right lower lobe nodule. Electronically Signed: Johny Simeon, at 10:27 EST Tel , Service support ,
--- OUTSIDE RECORDS SUMMARY | 2018-11-04 08:18 | XMS RPT_ITS ---
:1955 Author Organization OHIP Support Name Relationship Address Phone R Unavailable Unavailable Unavailable MARCUS HOWARD Unavailable [address] + [place] [address] R Unavailable Unavailable Unavailable MARCUS HOWARD Unavailable [address] + [place] [address] R Unavailable Unavailable Unavailable MARCUS HOWARD Unavailable [address] + [place] [address] R Unavailable Unavailable Unavailable MARCUS HOWARD Unavailable [address] + [place] [address] R Unavailable Unavailable Unavailable MARCUS HOWARD Unavailable [address] + [place] [address] R Unavailable Unavailable Unavailable MARCUS HOWARD Unavailable [address] + [place] [address] R Unavailable Unavailable Unavailable MARCUS HOWARD Unavailable [address] + [place] [address] R Unavailable Unavailable Unavailable MARCUS HOWARD Unavailable [address] + [place] [address] R Unavailable Unavailable Unavailable MARCUS HOWARD Unavailable [address] + [place] [address] R Unavailable Unavailable Unavailable MARCUS HOWARD Unavailable [address] + [place] [address] R Unavailable Unavailable Unavailable MARCUS HOWARD Unavailable [address] + [place] [address] R Unavailable Unavailable Unavailable MARCUS HOWARD Unavailable [address] + [place] [address] R Unavailable Unavailable Unavailable MARCUS HOWARD Unavailable [address] + [place] [address] R Unavailable Unavailable Unavailable MARCUS HOWARD Unavailable [address] + [place] [address] R Unavailable Unavailable Unavailable MARCUS HOWARD Unavailable [address] [phone] [place] [address] R Unavailable Unavailable Unavailable MARCUS HOWARD Unavailable [address] [phone] [place] [address] R Unavailable Unavailable Unavailable MARCUS HOWARD Unavailable [address] [phone] [place] [address] R Unavailable Unavailable Unavailable MARCUS HOWARD Unavailable [address] [phone] [place] [address] R Unavailable Unavailable Unavailable MARCUS HOWARD Unavailable [address] [phone] [place] [address] Care Team Providers Name Role Phone VILMA [...] Abnormal Stewart Pearl Active [place] findings on [facility] diagnostic imaging Hospital of other specified Repository body structures / R93.89(ICD-10) 06/22/2018 Active Other microscopic NA Active [facility] hematuria / [place] R31.29(ICD-10) Repository 04/23/2018 Unknown K21.9 - Garcia Active [place] Gastro-esophageal [facility] reflux disease Hospital without esophagitis Repository / K21.9(ICD-10) 05/11/2018 Unknown R06.02 - Shortness Marvin Llanos Active [place] of breath / Community R06.02(ICD-10) Hospital Repository 04/06/2018 Active Encounter for NA Active [facility] screening for [place] malignant neoplasm Repository of colon / Z12.11(ICD-10) 04/06/2018 Unknown Z95.5 - Presence of Marvin Llanos Active [place] [facility] angioplasty implant Hospital and graft / Repository Z95.5(ICD-10) 05/26/2013 Active Malignant neoplasm NA Active [facility] of prostate / [place] C61(ICD-10) Repository 12/08/2017 Active Other halfway NA Active [facility] (current) drug [facility] therapy / Repository Z79.899(ICD-10) 09/08/2017 Active Shortness of breath NA Active [facility] / R06.02(ICD-10) Other [place] Repository 09/08/2017 Active Cough / R05(ICD-10) NA Active [facility] Repository PROCEDURES PROCEDURES No Procedure Records FoundRESULTS RESULTS CNOV Observed: 09/02/2018 Status: COMPLETED Source: [place] 10:40 AM [facility] REPOSITORY Office Visit (FAMPWS) MACI HOWARD ([id number]) 1955 M Date Time Provider Department 09/02/18 [...] for ER follow up. Patient presented to [facility] ED on 09/01 for complaint of [...] CAD (coronary artery disease) s/p SHANIQUA to [facility], seeing Dr. 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 Social History Main Topics Smoking status: [...] 09/02/18 PROGRESS Observed: 09/02/2018 Status: COMPLETED Source: [place] 10:31 AM [facility] REPOSITORY HNO ID: [id number] Author: Vilma Espinoza) Gwendolyn Service: (none) Author Type: Physician Type: Progress Notes Filed: 09/02/2018 12:03 PM Note Text: Chief Complaint No chief complaint on file. HPI Maci Howard is a 63 year old male who presents here today for ER follow up. Patient presented to [facility] ED on 09/01 for complaint of [...] CAD (coronary artery disease) s/p SHANIQUA to [facility], seeing Dr. 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 Main Topics Smoking status: [...] LEAD ELECTROCARDIOGRAM Observed: 09/01/2018 Status: F Source: [place] 5:17 PM [facility] REPOSITORY [facility] Cardiovascular Services [address] [place] [address] 12 Lead EKG 09/01/18 0423 MR#: [id number] Acct: [id number] Name: MACI HOWARD Rep #: [id number] : 1955 63 From: Eliseo Borja MD [...] ECG Confirmed by ELISEO BORJA MD ([id number]), purchase request editor GARRY REID ([id number]) on 09/01/2018 5:16:40 PM Referred By: GERARD Confirmed By:ELISEO BORJA MD 09/01/181715 Date Eliseo Borja MD CC: Elmo Snow MD; Altagracia Ace MD Signed 12 LEAD ELECTROCARDIOGRAM Observed: 09/01/2018 Status: F Source: [place] 5:17 PM [facility] REPOSITORY [facility] Cardiovascular Services [address] [place] [address] 12 Lead EKG 09/01/18 0116 MR#: [id number] Acct: [id number] Name: MACI HOWARD Chidi Rep #: [id number] : 1955 63 From: Eliseo Borja MD [...] ECG Confirmed by ELISEO BORJA MD ([id number]), purchase request editor GARRY REID ([id number]) on 09/01/2018 5:16:54 PM Referred By: GERARD Confirmed By:ELISEO BORJA MD 09/01/181715 Date Eliseo Borja MD CC: Elmo Snow MD; Altagracia Ace MD Signed EMERGENCY DEPARTMENT Observed: 09/01/2018 Status: F Source: [place] SUMMARY 5:46 AM [facility] REPOSITORY [facility] Medical Records Department [address] [place] [address] Emergency Department Summary 09/01/18 0151 MR#: [id number] Acct: [id number] Name: MACI HOWARD Rep #: [id number] : 1955 63 From: Altagracia Ace MD [...] Epigastric pain This note was generated with PostBeyond dictation software. It may contain incorrect words, [...] problems, contact your Primary Care Provider. Call [facility] ([phone]) or report to the closest Emergency Room. Call 911 if necessary. 09/01/18 0546 <Electronically signed by Altagracia Ace MD> Date Altagracia Ace MD Cosigner Signature (If Indicated): Date CC: Elmo Snow MD DISCHARGE INSTRUCTION Observed: 09/01/2018 Status: F Source: [place] 5:00 AM [facility] Medical Records Department [address] [place] [address] Discharge Instruction 09/01/18 0500 MR#: [id number] Acct: [id number] Name: MACI HOWARD Rep #: [id number] : 1955 63 From: Altagracia Ace MD [...] your Primary Care Provider. Call [facility] ([phone]) or report to the closest Emergency Room. Call 911 if necessary. 09/01/18 0500 <Electronically signed by Altagracia Ace MD> Date Altagracia Ace MD Cosigner Signature (If Indicated): Date CC: Elmo Snow MD TROPONIN-I Collected: 09/01/2018 Status: F Source: [place] 4:22 AM [facility] REPOSITORY TYPE CODE TESTS RESULT OUT OF RANGE REFERENCE UNITS LAB L501.4010 <0.045 ng/mL Normal < 0.015 TROPONIN-I Result Comment: TROPONIN-I EXPECTED VALUES <0.045 Negative 0.045 - 0.590 Consistent with Cardiac Damage > OR = 0.600 Critical Value Not every elevated troponin is indicative of [place]. These values should be used with clinical judgement in examining the patient's clinical picture for diagnosis. To establish a diagnosis of KS versus myocardial injury, there must be a demonstrated rise and/or fall in the troponin values, in addition to ischemic symptoms, EKG changes, new regional wall motion abnormality, and/or angiographical evidence. PLEASE NOTE: REFERENCE RANGES EDITED 17 Performed By: #### L501.4010 #### [facility] [address] [facility] [address] [place], [address] CHEST 1 VIEW Observed: 09/01/2018 Status: F Source: [place] (PORTABLE) 1:29 AM [facility] REPOSITORY [facility] Imaging Services [address] [place] [address] Chest 1 View (Portable) MR#: [id number] Acct: [id number] Name: MACI HOWARD Rep #: [id number] : 1955 M 63 From: Ishmael Rowan PCP: Elmo Snow MD Status: REG ER Study: Chest 1 View (Portable) Date of Exam: 09/01/18 Exam# [id number] Ordering Dr: Altagracia Ace MD STUDY: X-RAY [...] CC: Elmo Snow MD; Altagracia Ace MD Strap Buckler: Signed CBC W/DIFF, AUTOMATED Collected: 09/01/2018 Status: F Source: [place] 1:22 AM [facility] REPOSITORY TYPE CODE TESTS RESULT OUT OF [...] Lymph 1.72 Performed By: #### L100.0100 #### [facility] [address] [place], [address] BASIC METABOLIC Collected: 09/01/2018 Status: F Source: [place] PROFILE ([facility]) 1:22 AM [facility] REPOSITORY TYPE CODE TESTS RESULT OUT OF [...] By: #### L500.2500, L500.3400, L501.2450, L501.4010 #### [facility] [address] [place], [place], [id number] LIVER PROFILE Collected: 09/01/2018 Status: F Source: [place] 1:22 AM [facility] REPOSITORY TYPE CODE TESTS RESULT OUT OF [...] By: #### L500.2500, L500.3400, L501.2450, L501.4010 #### [facility] [address] [place], [place], [id number] LIPASE Collected: 09/01/2018 Status: F Source: [place] 1:22 [facility] REPOSITORY TYPE CODE TESTS RESULT OUT OF RANGE REFERENCE UNITS LAB L501.2450 73-393 U/L Normal LIPASE 117 Performed By: #### L500.2500, L500.3400, L501.2450, L501.4010 #### [facility] [address] [place], [address] TROPONIN-I Collected: 09/01/2018 Status: F Source: [place] 1:22 AM [facility] REPOSITORY TYPE CODE TESTS RESULT OUT OF RANGE REFERENCE UNITS LAB L501.4010 <0.045 ng/mL Normal < 0.015 TROPONIN-I Result Comment: TROPONIN-I EXPECTED VALUES <0.045 Negative 0.045 - 0.590 Consistent with Cardiac Damage > OR = 0.600 Critical Value Not every elevated troponin is indicative of [place]. These values should be used with clinical judgement in examining the patient's clinical picture for diagnosis. To establish a diagnosis of KS versus myocardial injury, there must be a demonstrated rise and/or fall in the troponin values, in addition to ischemic symptoms, EKG changes, new regional wall motion abnormality, and/or angiographical evidence. PLEASE NOTE: REFERENCE RANGES EDITED 17 Performed By: #### L500.2500, L500.3400, L501.2450, L501.4010 #### [facility] [address] [place], [address] PULMONARY VISIT REPORT Observed: 08/24/2018 Status: F Source: [place] 12:22 PM [facility] REPOSITORY [facility] [place] [address] [place] [address] OFFICE VISIT Date of Service: 08/24/18 MR#: [id number] Acct: [id number] Name: MACI HOWARD Rep #: [id number] : 1955 Provider: Gisel Zelaya Age/Sex: 63/M Location: [facility] Status: Signed with Addenda ADDENDUM by Gisel [...] 08/24/18 1222 <Electronically signed by Gisel Zelaya TRAINING PROJECT MANAGER-C> Date Gisel ZelayaC cc: Elmo Snow MD [...] [Rx Confirmed 08/24/18] Fluticasone 0.05% [Flonase Nasal [place]] 1 spray NASAL BID 06/03/17 [History Confirmed [...] DAILY #60 ea 07/22/18 [Rx Confirmed 08/24/18] [facility] Medical History CVA (cerebral vascular accident) (Acute) HLD (hyperlipidemia) (Chronic) Atherosclerotic heart disease of [place] coronary artery without angina pectoris (Chronic) Pre-operative cardiovascular examination (Chronic) Atherosclerosis of [place] coronary artery of [place] heart without angina pectoris (Chronic) Diastolic dysfunction [...] CHEST WITHOUT Observed: 08/01/2018 Status: F Source: [place] CONTRAST 6:57 AM [facility] REPOSITORY [facility] Imaging [place] [address] Chest without Contrast MR#: [id number] Acct: [id number] Name: MACI HOWARD Rep #: [id number] : 1955 M 63 From: Johny Simeon MD PCP: Elmo Snow MD Status: REG CLI Study: Chest without Contrast Date of Exam: 08/01/18 Exam# [id number] Ordering Dr: Stewart Pearl MD STUDY: CT [...] CC: Stewart Pearl MD; Elmo Snow MD Strap Buckler: Signed PULMONARY FUNCTION Observed: 08/01/2018 Status: F Source: [place] REPORT COMP 5:48 AM [facility] REPOSITORY [facility] Pulmonary Services/Neurology [address] [place] [address] MR#: [id number] Acct: [id number] Name: MACI HOWARD Rep #: [id number] : 1955 63 From: Stewart Pearl MD Referring Dr: Stewart Pearl MD Status: REG CLI Ordering Dr: Date: Location: [facility] Sex: M C COMPLETE PULMONARY FUNCTION TEST INTERPRETATION Brief HPI: Patient is a 63 year old male, currently under the care of myself, who presents to [facility] for complete pulmonary function tests secondary to [...] Date Dictated: 07/31/18 1509 Date Transcribed: 07/31/181508 Strap Buckler: SHANKAR Signed PULMONARY VISIT REPORT Observed: 07/22/2018 Status: F Source: [place] 8:35 AM [facility] REPOSITORY [facility] [place] [address] [place] [address] OFFICE VISIT Date of Service: 07/22/18 MR#: [id number] Acct: [id number] Name: MACI HOWARD Rep #: [id number] : 1955 Provider: Stewart Pearl MD Age/Sex: 63/M Location: [facility] Status: Signed Assessment AND Plan 1. LESLY [...] J45.909 Ellipta) Follow Up 3 Months (Jessica) [facility] 3 M FU: Chief Complaint: Productive [...] kg Intake Visit Reasons: 3 M FU [facility] Vendor: ALICIA changing to [employer] Accompanied by: Allergies No Known Allergies Allergy [...] [Rx Confirmed 07/22/18] Fluticasone 0.05% [Flonase Nasal [place]] 1 spray NASAL BID 06/03/17 [History Confirmed [...] HLD (hyperlipidemia) (Chronic) Atherosclerotic heart disease of [place] coronary artery without angina pectoris (Chronic) Pre-operative cardiovascular examination (Chronic) Atherosclerosis of [place] coronary artery of [place] heart without angina pectoris (Chronic) Diastolic dysfunction [...] MD CBC Collected: 06/22/2018 Status: F Source: [place] 8:22 AM [facility] REPOSITORY TYPE CODE TESTS RESULT [...] nRBC <0.01 Performed By: #### CBC #### [facility] [address] [place], [place] [address] COMP METABOLIC PANEL Collected: 06/22/2018 Status: F Source: [place] 7:47 AM [facility] REPOSITORY TYPE CODE TESTS RESULT OUT OF REFERENCE UNITS RANGE LAB TP 6.3-8.0 g/dL Test reordered by Protein, [facility]. Total Result Comment: [id number] [facility] Account Credited LAB ALB 3.9-4.9 g/dL Test Albumin reordered by [facility]. Result Comment: [id number] [facility] Credited LAB CA 8.5-10.2 mg/dL Test Calcium, Total reordered by [facility]. Result Comment: [id number] [facility] Credited LAB TBIL 0.2-1.3 mg/dL Bilirubin, Test Total reordered by [facility]. Result Comment: [id number] [facility] Credited LAB ALKP 38-113 U/L Alkaline Test Phosphatase reordered by [facility]. Result Comment: [id number] [facility] Credited LAB AST 14-40 U/L Test AST reordered by [facility]. Result Comment: [id number] [facility] Credited LAB GLU 74-99 mg/dL Test Glucose reordered by [facility]. Result Comment: [id number] [facility] Credited LAB BUN 9-24 mg/dL Test BUN reordered by [facility]. Result Comment: [id number] [facility] Credited LAB CRET 0.73-1.22 mg/dL Creatinine Test reordered by [facility]. Result Comment: [id number] [facility] Credited LAB NA 136-144 mmol/L Test Sodium reordered by [facility]. Result Comment: [id number] [facility] Credited LAB K 3.7-5.1 mmol/L Test Potassium reordered by [facility]. Result Comment: [id number] [facility] Credited LAB CL 97-105 mmol/L Test Chloride reordered by [facility]. Result Comment: [id number] [facility] Credited LAB CO2 22-30 mmol/L Test CO2 reordered by [facility]. Result Comment: [id number] [facility] Credited LAB AGAP 9-18 mmol/L Test Anion Gap reordered by [facility]. Result Comment: [id number] [facility] Credited LAB ALT 10-54 U/L Test ALT reordered by [facility]. Result Comment: [id number] [facility] Account Credited LAB GFRAA eGFR- Amer. Test reordered by [facility]. Result Comment: [id number] [facility] Account Credited LAB GFRNAA . eGFR-All Test Other Races reordered by [facility]. Result Comment: [id number] [facility] Account Credited LAB GFRPED eGFR-Ped. Test Factor reordered by [facility]. Result Comment: [id number] [facility] Account Credited Performed By: #### CMP #### [facility] [address] [place], [place] [address] COMP METABOLIC PANEL Collected: 06/22/2018 Status: F Source: [place] 7:47 AM [facility] REPOSITORY TYPE CODE TESTS RESULT OUT OF REFERENCE UNITS RANGE LAB TP 6.3-8.0 g/dL Protein, Total 6.8 LAB ALB 3.9-4.9 g/dL Albumin 4.1 LAB CA 8.5-10.2 mg/dL Calcium, Total 9.1 LAB TBIL 0.2-1.3 mg/dL Bilirubin, Total 0.7 LAB ALKP 38-113 U/L Alkaline Phosphatase 76 LAB AST 14-40 U/L AST 21 LAB GLU 74-99 mg/dL Glucose 77 Result Comment: The [place] Diabetes Association (ADA) provides guidance for cutoff [...] Standards of Medical Care in Diabetes 2016, [place] [employer] Association. Diabetes Care. 2016.39(Suppl 1). LAB [...] actual GFR. 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 Coronary artery disease involving [place] heart without angina pectoris, unspecified vessel or [...] AM PROGRESS Observed: 06/12/2018 Status: COMPLETED Source: [place] 8:01 AM [facility] REPOSITORY HNO ID: [id number] Author: Lorna Sahni Service: (none) Author Type: (none) Type: Progress Notes Filed: 06/12/2018 3:23 PM Note Text: 63 year old male here for INACTIVATED INFLUENZA VACCINE. 8399-8990 Season Patient is identified by name and date of : Yes [] CONTRAINDICATIONS color enhanced section Age less than 6 months? No Allergy to eggs, chicken, chicken feathers, or chicken dander? No Allergy to thimerosal (a preservative) or formaldehyde, gelatin? No History of severe reaction to any vaccine component or a previous dose of influenza vaccination? 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 Yes See immunization activity in [facility] for details of immunizations adminstered today. Patient age: [age] year old For The 1647-6976 Flu Season 6-35 months old: Fluzone 0.25 [...] time. CNOV Observed: 06/12/2018 Status: COMPLETED Source: [place] 8:00 AM [facility] REPOSITORY [facility] MACI HOWARD Chidi ([id number]) 1955 M Date Time Provider Department 06/12/18 [...] dose of influenza vaccination? 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 Yes See immunization activity in [facility] for details of immunizations adminstered today. 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 Coronary artery disease involving [place] heart without angina pectoris, unspecified vessel or [...] Time: 11:02 AM Referring Provider: VILMA SNOW) [[id number]] Allergies As of Date: 06/12/2018 Noted Allergy Reaction PARAFON FORTE DSC (CHLORZOXAZONE) 03/11/2006 Date Reviewed: 06/12/2018 Reviewed by: Lorna Sahni - Fully Assessed Reason for Visit: Recheck [92] Cmt: 6 month Imm/Inj [58] Cmt: Flu Vaccine Reason For Visit History Recorded Primary Visit Diagnosis:SOB (shortness of breath) [R06.02] Other Visit Diagnoses:Coronary artery disease involving [place] heart without angina pectoris, unspecified vessel or lesion type [I25.10] LESLY on CPAP [G47.33, Z99.89] Moderate episode of recurrent major depressive disorder (HCC) [F33.1] Need for vaccination [Z23] Microscopic hematuria [R31.29] Order(s):INFLUENZA VACCINE QUADRIVALENT AGE 3 YRS PLUS + IM [[id number]] Order #: [id number] URINALYSIS WITH MICROSCOPIC [SQUAWMIC] Order #: [id number] CBC [SQCBC] Order #: [id number] FUTURE COMP METABOLIC PANEL [SQCMP] Order #: [id number] FUTURE Prescriptions as of 06/12/2018 Sig: FLUTICASONE [...] VISIT REPORT Observed: 04/29/2018 Status: F Source: [place] 9:53 AM [facility] [address] [place] [address] [address] [place] [address] OFFICE VISIT Date of Service: 04/29/18 MR#: [id number] Acct: [id number] Name: MACI HOWARD Chidi Rep #: [id number] : 1955 Provider: Gabe Arenas MD Age/Sex: 62/M Location: [facility] Status: Signed Intake Vital Signs04/29/18 Height 6 ft 1 in 04/29/18 Weight: 240 lb Intake Visit Reasons: Reflux Chief Complaint: Chronic cough [employer] Required: No Is patient in pain?: No [...] [Rx Confirmed 04/29/18] Fluticasone 0.05% [Flonase Nasal [place]] 1 spray NASAL BID 06/03/17 [History Confirmed [...] HLD (hyperlipidemia) (Chronic) Atherosclerotic heart disease of [place] coronary artery without angina pectoris (Chronic) Pre-operative cardiovascular examination (Chronic) Atherosclerosis of [place] coronary artery of [place] heart without angina pectoris (Chronic) Diastolic dysfunction [...] would treat accordingly. Gabe Arenas MD Pager: [facility] [address] [place] [address], [address] [place] [address] Office: Coding Level of Care Code Off vis,new,level 3 Diagnoses Gastric reflux K21.9 04/29/18 0953 <Electronically signed by Gabe Arenas MD> Date Gabe Arenas MD Cosigner Signature: Date (if applicable) CC: Gisel Zelaya; Elmo Snow MD PULMONARY VISIT REPORT Observed: 04/23/2018 Status: F Source: [place] 11:28 AM [facility] [address] [place] [address] OFFICE VISIT Date of Service: 04/23/18 MR#: [id number] Acct: [id number] Name: MACI HOWARD Rep #: [id number] : 1955 Provider: Gisel Zelaya Age/Sex: 62/M Location: [facility] Status: Signed Assessment AND Plan 1. Uncomplicated [...] Visit Reasons: f/u Chief Complaint: Chronic cough [employer] Required: No DME Vendor: [employer] Accompanied by: Self Is patient in pain?: [...] [Rx Confirmed 04/23/18] Fluticasone 0.05% [Flonase Nasal [place]] 1 spray NASAL BID 06/03/17 [History Confirmed [...] 05/15/17) Pre-operative cardiovascular examination (Chronic) Atherosclerosis of [place] coronary artery of [place] heart without angina pectoris (Chronic) Diastolic dysfunction (Chronic) LESLY (obstructive sleep apnea) (Chronic) HTN (hypertension) (Chronic) Acute exacerbation of COPD with asthma (Acute) Hyperlipidemia (Chronic) COPD (chronic obstructive pulmonary disease) (Chronic) Obesity (BMI 30.0-34.9) (Chronic) Chest pain (Chronic) Patent foramen ovale (Chronic) Prostate cancer (Chronic) Gastric reflux (Chronic) Asthma (Chronic) CVA (cerebral vascular accident) (Acute) Atherosclerotic heart disease of [place] coronary artery without angina pectoris (Chronic) HLD [...] Snow MD Observed: 04/23/2018 Status: F Source: [place] CULTURE, SPUTUM 9:00 AM [facility] REPOSITORY Gram Stain Acceptable Specimen? Yes (<25 [...] Lactamase Negative Performed By: #### M100.0800 #### [facility] [address] [place] [address], [address] STRESS REPORT Observed: 04/14/2018 Status: F Source: [place] 1:28 PM [facility] REPOSITORY [facility] Cardiovascular Services [address] [place] [address] MR#: [id number] Acct: [id number] Name: MACI HOWARD Rep #: [id number] : 1955 62 From: Marvin Llanos MD [...] 56 %. This note was generated with Elemental Foundryation software. It may contain incorrect words, spelling, and punctuation that were not noted in checking the note before signing. 04/14/188 <Electronically signed by Marvin Llanos MD> Date Marvin Llanos MD CC: Elmo Snow MD; Marvin Llanos MD Date Dictated: 04/14/181323 Date Transcribed: 04/14/181323 Strap Buckler: PM Signed CARDIOLOGY VISIT Observed: 04/06/2018 Status: F Source: [place] REPORT 9:54 AM [facility] [address] [place] [address]. [address] [place] [address] OFFICE VISIT Date of Service: 04/06/18 MR#: [id number] Acct: [id number] Name: MACI HOWARD Rep #: [id number] : 1955 Provider: Marvin Llanos MD Age/Sex: 62/M Location: [facility] Status: Signed HPI HPI Details: MACI HOWARD, is a 62 M who presents to the office today for for outpatient cardiovascular follow-up. His main concern continues to be his shortness of breath and dyspnea. 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 Atherosclerosis of [place] coronary artery of [place] heart without angina pectoris I25.10 S/P PTCA/SHANIQUA [...] He will continue to follow with his beam saw operator for this. This may be the etiology [...] Code Off vis,est,level 4 Diagnoses Atherosclerosis of [place] coronary artery of [place] heart without angina pectoris I25.10 Presence of stent in coronary artery Z95.5 Hyperlipidemia, unspecified hyperlipidemia type E78.5 Hyperlipidemia type: unspecified Essential hypertension I10 Hypertension type: essential hypertension Patent foramen ovale Q21.1 Chronic obstructive pulmonary disease, unspecified COPD type J44.9 COPD type: unspecified COPD Shortness of breath R06.02 Coding Level of Care Code Off vis,est,level 4 Diagnoses Atherosclerosis of [place] coronary artery of [place] heart without angina pectoris I25.10 Presence of [...] MD Cosigner Signature: Date (if applicable) CC: Emlo Snow MD FECAL OCCULT BLD Collected: 04/06/2018 Status: F Source: [place] TST 7:41 AM [facility] REPOSITORY TYPE CODE TESTS RESULT OUT OF REFERENCE UNITS RANGE LAB IFO Negative Immuno Negative FOB Result Comment: This test was developed and its performance characteristics determined by [facility]'s Dre Patel [facility] Pathology and Laboratory Medicine [place] ([facility]). It has not been cleared or approved by the FDA. [facility] is regulated under CLIA as qualified to perform high-complexity testing. This test is used for clinical purposes. It should not be regarded as investigational or for research. Performed By: #### IFOBT #### [place] [address] [place], [place] [address] Observed: 02/26/2018 Status: F Source: [place] URINE CULTURE 10:08 [facility] REPOSITORY Sp. Request/Comment: - Specimen received in preservative Culture Result - No growth (<1,000 CFU/ml) Performed By: #### URCUL #### [facility] [address] [place], [place] [address] PROGRESS Observed: 02/26/2018 Status: COMPLETED Source: [place] 10:05 AM [facility] REPOSITORY HNO ID: [id number] Author: Ovi Butcher (Pa) Service: (none) Author Type: Physician Photographic Enlarger Operator Type: Progress Notes Filed: 02/26/2018 10:46 AM Note Text: [facility] [place] CC: Prostate Cancer Follow -up HPI Maci [...] signed CNOV Observed: 02/26/2018 Status: COMPLETED Source: [place] 9:00 AM [facility] REPOSITORY Office Visit (UROLWS) MACI HOWARD ([id number]) 1955 M Date Time Provider Department 02/26/18 9:00 AM OVI BUTCHER) UROLWS During your visit today, we recorded the following information about you: Pulse Blood pressure Weight 76/minute 126/82 108.9 kg BOSSMAN Ledezma 02/26/2018 10:46 AM Signed [facility] [place] CC: Prostate Cancer Follow -up HPI Maci [...] PABebaC Electronically signed Referring Provider: VILMA SNOW) [[id number]] Allergies As of Date: 02/26/2018 Noted Allergy Reaction LOURDES PALOMO DSC (CHLORZOXAZONE) 03/11/2006 Date Reviewed: 02/26/2018 Reviewed by: Randa Goel Ma - Fully Assessed Reason for Visit: Follow Up [171] Prostate Cancer [590] Primary Visit Diagnosis:Prostate cancer (HCC) [C61] Order(s):UA DIP, URINE (POC) [9721507] Order #: [id number]. #:[id number] URINE CULTURE [SQURCUL] Order #: [id number] PSA/PROSTSPECAG DIAG [SQPSA] Order #: [id number] FUTURE PSA/PROSTSPECAG DIAG [SQPSA] Order #: [id number] FUTURE Prescriptions as of 02/26/2018 Sig: BUDESONIDE-FORMOTEROL [...] PSA, DIAGNOSTIC Collected: 02/23/2018 Status: F Source: [place] 7:38 AM [facility] REPOSITORY TYPE CODE TESTS RESULT OUT OF REFERENCE UNITS RANGE LAB PSA 0.00-2.59 ng/mL PSA, Diagnostic 0.03 Result Comment: Total PSA test methodology used is the Electrochemiluminescence Immunoassay. Performed By: #### PSA #### [facility] [address] [place], [place] [address] PROGRESS Observed: 12/10/2017 Status: COMPLETED Source: [place] 8:04 AM [facility] REPOSITORY HNO ID: [id number] Author: Vilma Espinoza) Gwendolyn Service: (none) Author [...] CAD (coronary artery disease) s/p SHANIQUA to [facility], seeing Dr. 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 Lungs: Negative findings: normal respiratory rate [...] 6 months. 3. 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 Lungs: Negative findings: normal respiratory rate [...] 6 months. 3. Coronary artery disease involving [place] heart without angina pectoris, unspecified vessel or [...] Snow MD Referring Provider: VILMA SNOW () [[id number]] Allergies As of Date: 12/10/2017 Noted Allergy Reaction PARAFOSoco PALOMO DSC (CHLORZOXAZONE) 03/11/2006 Date Reviewed: 12/10/2017 Reviewed by: Peter Armando Ma - Fully Assessed Reason for Visit: F/U 3 Month [443] Cmt: routine - requesting 12.5 mg metoprolol Reason For Visit History Recorded Primary Visit Diagnosis:Hypertensive heart disease without heart failure [I11.9] Other Visit Diagnoses:Dyspnea, unspecified type [R06.00] Coronary artery disease involving [place] heart without angina pectoris, unspecified vessel or [...] Order(s):FECAL OCCULT BLOOD TEST [SQIFOBT] Order #: [id number] FUTURE losartan (COZAAR) 25 mg tabletTake 0.5 tablets by mouth once daily.Disp: Rfl: 0 COMP METABOLIC PANEL [SQCMP] Order #: [id number] FUTURE CBC [SQCBC] Order #: [id number] FUTURE TETANUS/DIPTHERIA BOOSTER (OVER 7), PF IM [30366OVS] Order #: [id number] Prescriptions as of 12/10/2017 Sig: LOSARTAN 25 [...] PANEL, BASIC Collected: 12/08/2017 Status: F Source: [place] 7:35 AM [facility] REPOSITORY TYPE CODE TESTS RESULT OUT OF [...] Desk Reference: National Heart, Lung, and Blood [place]. National Institutes of Health. 2001: NIH Publication No. 01-3305. 2. An International Atherosclerosis Society position paper: global recommendations for the management of dyslipidemia: executive summary, Atherosclerosis. 2014: 232(2):410-413. Performed By: #### LIPB #### [facility] [address] [place] [id number] CNPTOUTREACH Observed: 11/25/2017 Status: COMPLETED Source: [place] 12:00 AM [facility] REPOSITORY Patient Outreach (INTMWH) MACI HOWARD ([id number]) 1955 Date Time Provider Department 11/25/17 VILMA SNOW) INTWH During your visit today, we recorded the following information about you: Allergies As of Date: 11/25/2017 Noted Allergy Reaction PARAFON FORTE DSC (CHLORZOXAZONE) 03/11/2006 Date Reviewed: 11/10/2017 Reviewed by: Lynn (Rn) SCOTT Workman - Fully Assessed Visit Diagnosis:Medication management [Z79.899] Order(s):BASIC METABOLIC PNL [SQBMP] Order #: [id number] FUTURE LIPID PANEL BASIC [SQLIPB] Order #: [id number] FUTURE Problem List As Of Date 11/25/2017 [...] 11/18/2017 Status: COMPLETED Source: [place] 12:00 AM [facility] REPOSITORY Telephone ([facility]) MACI HOWARD ([id number]) 1955 M Date Time Provider Department 11/18/17 YOUSUF JEWELL [facility] During your visit today, we recorded [...] 4:29 PM Signed Responding to patient via [employer] message 12/10/2017. Yousuf Jewell MD, [facility] Yousuf Jewell MD 12/15/2017 3:12 PM Signed Patient acknowledged and accepted explanation in [employer] message 12/10/2017. Yousuf Jewell MD, [facility] Allergies As of Date: 11/18/2017 Noted Allergy [...] PT ED Observed: 11/10/2017 Status: COMPLETED Source: [place] 2:40 PM [facility] [place] REPOSITORY HNO ID: [id number] Author: Rafael (Rn) SCOTT Aguirre Service: Nursing [...] Signed By: Rafael Aguirre RN In Department: [facility] ENDOSCOPY NURSING PROG Observed: 11/10/2017 Status: COMPLETED Source: [place] 1:46 PM [facility] OTHER [facility] REPOSITORY HNO ID: [id number] Author: Lynn AndersonRn) SCOTT Workman Service: Nursing Author Type: Registered Nurse Type: Nursing Progress Note Filed: 11/10/2017 2:04 PM Note Text: Nursing Progress Note Patient Name: Maci Howard Patient Location: [place] Endo/[place] Endo pt awake and talking to at this time. Denies pain. This note was completed by: Lynn Workman RN 1400 pt had sm sips H2O, managed fluids well, VSS. PROCEDURE Observed: 11/10/2017 Status: COMPLETED Source: [place] 1:13 PM [facility] REPOSITORY HNO ID: [id number] Author: Yousuf Jewell Service: Pulmonary Disease Author Type: Physician Type: Procedures Filed: 11/10/2017 1:14 PM Note Text: 11/10/2017 Maci Howard [id number] Flexible bronchoscopy with endobronchial biopsy of the [...] Full note in Provation. Yousuf Jewell MD, [facility] Medical Office [place] [address] P: [phone] F: [phone] OPERATIVE NO Observed: 11/10/2017 Status: COMPLETED Source: [place] 1:09 PM [facility] REPOSITORY HNO ID: [id number] Author: Yousuf Jewell Service: Pulmonary Disease Author Type: Physician Type: Operative Report Filed: 11/10/2017 1:13 PM Note Text: 11/10/2017 Maci Howard [id number] Flexible bronchoscopy with endobronchial biopsy of the [...] Full note in Provation. Yousuf Jewell MD, [facility] Office Building [address] [address] P: [phone] F: [phone] EOSIN SMR Collected: 11/10/2017 Status: F Source: [place] 1:00 PM [facility] [place] REPOSITORY TYPE CODE TESTS RESULT OUT OF REFERENCE UNITS RANGE LAB EOSSMR 6% Eosin EOSINOPHILS Smr PRESENT (100 WBC COUNTED). Result Comment: This test was developed and its performance characteristics determined by [facility]'s [facility] [place] ([facility]). It has not been cleared or approved by the FDA. [facility] is regulated under CLIA as qualified to perform high-complexity testing. This test is used for clinical purposes. It should not be regarded as investigational or for research. Performed By: #### EOSSMR #### [facility] [place] [address] [place] [address] Observed: 11/10/2017 Status: F Source: [place] RESPIRATORY CULT/STAIN 1:00 PM [facility] REPOSITORY Smear Result - Few Gram positive cocci --> ABNORMAL ALERT Rare Polymorphonuclear leukocytes Rare Epithelial cells Culture Result - Moderate Normal respiratory christofer present Performed By: #### RCULST #### [facility] [place] [address] [place] [address] Observed: 11/10/2017 Status: F Source: [place] FUNGAL SMEAR 1:00 PM [facility] REPOSITORY Smear Result - No fungus seen. Performed By: #### FUNGSM #### [facility] [place] [address] [place] [address] SURGICAL PATHOLOGY Observed: 11/10/2017 Status: F Source: [place] 1:00 PM [facility] [place] REPOSITORY Specimen originated from [facility] Specimen #: [id number] Submitting Physician: Yousuf Jewell M.D. FINAL DIAGNOSIS [...] in one cassette. Gross examination performed at [facility], [address] [place] [address] 11/10/2017 7:12:29 PM Date of Report: 11/12/2017 Date of Procedure: 11/10/2017 Date of Receipt: 11/10/2017 Submitted by: Yousuf Jewell M.D. Location: [facility] Diagnostic interpretation performed at [place] [address]. Performed By: #### PATHS #### [place] [address] [phone] Observed: 11/10/2017 Status: F Source: [place] FUNGAL CULTURE 1:00 PM [facility] REPOSITORY Culture Result - Rare Yeast, not Cryptococcus neoformans --> ABNORMAL ALERT No other fungus found. Performed By: #### FCUL #### [facility] [place] [address] [place] [id number] Observed: 11/10/2017 Status: F Source: [place] AFB CULT AND STAIN 1:00 PM [facility] REPOSITORY Smear Result - No acid fast bacilli seen by fluorochrome stain Culture Result - No Acid Fast Bacilli isolated after 44 days Performed By: #### AFC #### [facility] [address] [place] [address] HISTORY PHYSICAL Observed: 11/10/2017 Status: COMPLETED Source: [place] 11:30 AM [facility] [place] REPOSITORY HNO ID: [id number] Author: Yousuf Jewell Service: Pulmonary Disease Author [...] IgE, eosinophil counts both normal, and RAST Cisne panel negative. Has held Plavix and aspirin [...] EGD - EGD W/O OR W[facility]BRUSH[facility] - PAST SURGICAL HISTORY OF [...] November 10, 2017 TIME: 12:22 PM PAGER: [phone] PT ED Observed: 11/10/2017 Status: COMPLETED Source: [place] 11:06 AM [facility] REPOSITORY HNO ID: [id number] Author: Bebe (Rn) SCOTT Carr Service: (none) [...] Signed By: Bebe Carr RN In Department: [facility] ENDOSCOPY CARDIOLOGY VISIT Observed: 11/07/2017 Status: F Source: [place] REPORT 2:07 PM [facility] REPOSITORY [facility] [address] [place] [address] OFFICE VISIT Date of Service: 10/28/17 MR#: [id number] Acct: [id number] Name: MACI HOWARD Rep #: [id number] : 1955 Provider: CHRISTINA Leal Age/Sex: 62/M Location: [facility] Status: Signed HPI HPI Details: MACI HOWARD, [...] [Rx Confirmed 10/23/17] Fluticasone 0.05% [Flonase Nasal [place]] 1 spray NASAL BID 06/03/17 [History Confirmed [...] (Chronic) Asthma (Chronic) Atherosclerotic heart disease of [place] coronary artery without angina pectoris (Chronic) HLD [...] dobutamine. Assessment AND Plan 1. Atherosclerosis of [place] coronary artery of [place] heart without angina pectoris I25.10 S/P PTCA/SHANIQUA [...] to follow-up with local pulmonology team and [facility] pulmonology team. 6. Pre-operative cardiovascular examination Z01.810 Plan - JANE Teague Patient will be undergoing bronchoscopy with Dr. Jewell of the [facility]. His most recent drug-eluting stent was [...] Code Off vis,est,level 3 Diagnoses Atherosclerosis of [place] coronary artery of [place] heart without angina pectoris I25.10 Patent foramen ovale Q21.1 Dyspnea on exertion R06.09 LESLY (obstructive sleep apnea) G47.33 Chronic obstructive pulmonary disease, unspecified COPD type J44.9 COPD type: unspecified COPD Pre-operative cardiovascular examination Z01.810 Coding Level of Care Code Off vis,est,level 3 Diagnoses Atherosclerosis of [place] coronary artery of [place] heart without angina pectoris I25.10 Patent foramen ovale Q21.1 Dyspnea on exertion R06.09 LESLY (obstructive sleep apnea) G47.33 Chronic obstructive pulmonary disease, unspecified COPD type J44.9 COPD type: unspecified COPD Pre-operative cardiovascular examination Z01.810 10/28/17 1522 <Electronically signed by Yoan Leal TRAINING PROJECT MANAGER-C> Date Yoan Leal TRAINING PROJECT MANAGER-C 11/07/17 1407<Electronically signed by Johny Bowden MD> Cosigner Signature: Date (if applicable) Johny Bowden MD CC: Elmo Snow MD; Yousuf Jewell MD PULMONARY VISIT REPORT Observed: 10/15/2017 Status: F Source: [place] 3:51 PM [facility] REPOSITORY Pulmonary Medicine [address] [place] [address] OFFICE VISIT Date of Service: 10/15/17 MR#: [id number] Acct: [id number] Name: MACI HOWARD Rep #: [id number] : 1955 Provider: Stewart Pearl MD Age/Sex: 62/M Location: [facility] Status: Signed Assessment AND Plan 1. Chronic obstructive pulmonary disease, unspecified COPD type J44.9 Plan Patient currently is seeking a second opinion at the [facility]. In an effort to not duplicate [...] go for a second opinion at the [facility]. Patient states he was seen by [...] [Rx Confirmed 10/15/17] Fluticasone 0.05% [Flonase Nasal [place]] 1 spray NASAL BID 06/03/17 [History Confirmed [...] (Chronic) Asthma (Chronic) Atherosclerotic heart disease of [place] coronary artery without angina pectoris (Chronic) HLD [...] 10/15/2017 Status: F Source: [place] 6:43 AM [facility] REPOSITORY Order Comment: Order Date: 06/04/17 Order Info: 0788-1 - *Hepatic Function Panel Order Info: 13283-5 - *Lipid Profile CC PCP Comments: 12 [...] BILI 0.13 Performed By: #### L500.3400 #### [facility] [place], [address] LIPID PROFILE Collected: 10/15/2017 Status: F Source: [place] 6:43 AM [facility] REPOSITORY Order Comment: Order Date: 06/04/17 Order Info: [id number] - *Hepatic Function Panel Order Info: [id number] - *Lipid Profile CC PCP Comments: 12 [...] VLDL 21 Performed By: #### L500.4100 #### [facility] [address] [place], [address] HOSP Observed: 10/06/2017 Status: COMPLETED Source: [place] 12:00 AM [facility] OTHER [facility]AMP[facility] REPOSITORY Patient:Maci Howard MRN: <[id number]> Height:6' 1(1.854 m) Weight:No patient weight recorded [...] for the following basenames: K,HCT Progress Notes ([facility]): MNADIE Orr, [facility] 10/16/2017 4:45 PM Signed Patient has been identified by name and date of : Yes RX INSTRUCTIONS: Patient aware RX will be sent to pharmacy. No need to notify patient. Aleida Reid PSR Altagracia [facility] 10/17/2017 8:40 AM Signed Patient has been [...] refills un sure of quantity [facility] Vilma Snow MD 10/17/2017 9:05 AM Signed Will give 50 mg tablet instead. 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 Vilma Snow MD PROGRESS Observed: 09/19/2017 Status: COMPLETED Source: [place] 11:03 AM [facility] REPOSITORY HNO ID: [id number] Author: Yousuf Jewell Service: (none) Author Type: [...] outside records noted above. Yousuf Jewell MD, [facility] Respiratory [place] CNPN Observed: 09/17/2017 Status: COMPLETED Source: [place] 12:00 AM [facility] REPOSITORY [facility] [facility] MACI HOWARD ([id number]) 1955 M Date Time Provider Department 09/17/17 YOUSUF JEWELL [facility] During your visit today, we recorded [...] in patient's Rx formulary. Yousuf Jewell MD, [facility] Respiratory Corn[facility] [address] [place] [address] P: [phone] F: [phone] [email or web address] Jerica Coombs LPN 09/18/2017 9:13 AM Signed LMTC, need to clarify if patient had labs drawn and which pharmacy patient prefers. Jerica Coombs LPN Del Marcial WOLF 09/19/2017 8:51 AM Signed Pt notes he has labs at [facility] which were done in 05/04(printed for your [...] inhalations twice daily via Aerochamber, E-scripted to [facility]. Yousuf Jewell MD, [facility] Respiratory Cornelius Yousuf Jewell MD 09/19/2017 5:40 PM Signed [...] 09/17/17 PROGRESS Observed: 09/10/2017 Status: COMPLETED Source: [place] 9:26 AM [facility] REPOSITORY [facility] ID: [id number] Author: Vilma Espinoza) Gwendolyn Service: (none) Author [...] psychiatry and is following with counseling through [facility] which he feels is helping his symptoms. [...] CAD (coronary artery disease) s/p SHANIQUA to [facility], seeing Dr. 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 6. Coronary artery disease involving [place] heart without angina pectoris, unspecified vessel or lesion type - ICD9: 414.01, ICD10: I25.10 Continue treatment as recommended through Dr. Llanos's office. 7. Gastroesophageal reflux disease, esophagitis presence not specified - ICD9: 530.81, ICD10: K21.9 - Continue treatment with Protonix 20 mg QD Vilma Snow MD CNOV Observed: 09/10/2017 Status: COMPLETED Source: [place] 9:20 AM [facility] REPOSITORY Office Visit (FAMPWS) ADONAYSONIAMACI TOBAR ([id number]) 1955 M Date Time Provider Department 09/10/17 9:20 AM [facility], we recorded the [...] psychiatry and is following with counseling through [facility] which he feels is helping his symptoms. 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 6. Coronary artery disease involving [place] heart without angina pectoris, unspecified vessel or [...] [R06.02] Wheezing [R06.2] Coronary artery disease involving [place] heart without angina pectoris, unspecified vessel or [...] 9:19 AM On hold for testing from [employer] Problem List As Of Date 09/10/2017 Noted [...] SEVERITY SOURCE 09/01/2018 Drug No Known Unknown [place] Allergy/416 Allergies/[id number] [facility] [id number]([facility] 8(RXNORM) [facility] ED CT) Repository 03/11/2006 DRUG CHLORZOXAZONE [facility] INGREDI/419 [facility] 906415(SN Repository ED CT) ENCOUNTERS ENCOUNTERS ADMIT/DISCHARGE ACCOUNT ADMITTING ENCOUNTER LOCATION SOURCE NUMBER CLASS 09/02/2018/09/03/19 [id number] Ambulatory [address] Repository 09/01/2018/09/01/19 [id number] Emergency [address] ing:ED Repository 08/24/2018/08/24/19 [id number] Ambulatory BMSBuilding:B [place] MS.[facility] Repository 08/01/2018 [id number] [facility] ing:CT Repository 07/31/2018 [id number] Ambulatory BMSBuilding:W Rachana [facility] Repository 07/31/2018 [id number] Ambulatory [facility] ing:PSN Repository 07/22/2018/07/22/20 [id number] Ambulatory BMSBuilding:Kerline Reich 18 [facility] Repository 06/22/2018/06/22/20 [id number] Ambulatory [address] Repository 06/12/2018/06/15/20 [id number] Ambulatory [address] Repository 04/29/2018/04/29/20 [id number] Ambulatory BMSBuilding:Kerline Reich 18 MS.[facility] Repository 04/23/2018 [id number] Ambulatory [facility] ing:LABSPEC Repository 04/23/2018/04/23/20 [id number] Ambulatory BMSBuilding:Kerline Reich 18 [facility] Repository 04/14/2018 [id number] Ambulatory BMSBuilding:Kerline Reich MS.[facility] Repository 04/14/2018 [id number] Ambulatory [facility] ing:CVS Repository 04/14/2018 [id number] Ambulatory BMSBuilding:W Rachana [facility] Repository 04/06/2018/04/06/20 [id number] Ambulatory [address] Repository 04/06/2018/04/06/20 [id number] Ambulatory BMSBuilding:Kerline Reich 18 MS.[facility] Repository 04/03/2018 [id number] Ambulatory BMSBuilding:Kerline Reich MS.[facility] Repository 02/26/2018/02/28/20 [id number] Ambulatory [address] Repository 02/23/2018/02/24/20 [id number] Ambulatory [address] Repository 12/10/2017/12/11/19 [id number] Ambulatory [address] Repository 12/08/2017/12/09/19 [id number] Ambulatory [address] Repository 11/10/2017/11/11/19 [id number] BEST, Ambulatory [address] Repository 10/28/2017/10/29/19 [id number] Ambulatory BMSBuilding:Kerline Reich 18 [facility] Repository 10/15/2017/10/15/19 [id number] Ambulatory BMSBuilding:B Rachana 18 [facility] Repository 10/15/2017 [id number] Ambulatory [place] Rachana [facility] ing:LAB Repository 09/26/2017/09/26/19 [id number] Ambulatory [address] Repository 09/17/2017 [id number] Ambulatory [facility] Other [place] Repository 09/10/2017/09/10/19 [id number] Ambulatory [address] Repository 09/10/2017 [id number] Ambulatory BMSBuilding:B Rachana [facility] Repository 09/10/2017 [id number] Ambulatory BMSBuilding:Kerline Reich MS.[facility] Repository PAYERS PAYERS ENCOUNTER GUARANTOR PAYER SUBSCRIBER SOURCE 09/01/2018 MACI Reich [id number] Insurance:MEDICAL SPEELMANDOB[place] [facility] [id number] [address]Iml: Number: Repository [id number] (HP) Date:8355-79-67LV [address] [address]BD: 09/01/2018 Secondary NOT GIVENUNK [place]ach[place] Insurance:SELF PAY [facility] Number: Effective Repository Date:2018-09-01 08/24/2018 MACI Reich [id number] Insurance:MEDICAL SPEELMANDOB: [facility] [id number] Vista [facility] Hospital [address]Gdt: Number: Repository [id number] (HP) Date:7581-52-65EB [address] [address]FP: 08/24/2018 Secondary NOT GIVENUNK [place] Insurance:SELF PAY [facility] Number: Effective Repository Date:2018-08-20 08/01/2018 MACI Reich [id number] Insurance:MEDICAL SPEELMANDOB: [facility] [id number] Vista Regional Hospital [address]Gqb: Number: Repository [id number] (HP) Date:8873-04-47VE [address] [place] [address]PG: 08/01/2018 Secondary NOT GIVENUNK [place]ach[place] Insurance:SELF PAY [facility] Number: Effective Repository Date:2018-07-23 07/31/2018 MACI Murillo Primary MARCUS Reich [id number] Insurance:MEDICAL SPEELMANDOB: [facility] [id number] Vista [facility] Hospital [address]Rov: Number: Repository [id number] (HP) Date:6857-54-80EG [address] [place] [address]AY: 07/31/2018 Secondary NOT GIVENUNK Rachana Insurance:SELF PAY [facility] Number: Effective Repository Date:2018-07-31 07/31/2018 MACI Murillo Primary MARCUS Reich [id number] Insurance:MEDICAL SPEELMANDOB: [facility] [id number] Vista Regional Hospital [address]Iyk: Number: Repository [id number] (HP) Date:0078-51-54NM [address] [address]YW: 07/31/2018 Secondary NOT GIVENUNK [place] Insurance:SELF PAY [facility] Number: Effective Repository Date:2018-07-22 07/22/2018 MACI Murillo Erica Reich [id number] Insurance:MEDICAL SPEELMANDOB: [facility] [id number] Vista Regional Hospital [address]Rgd: Number: Repository [id number] (HP) Date:7703-31-33RP [address] [address]ZQ: 07/22/2018 Secondary NOT GIVENUNK Rachana Insurance:SELF PAY [facility] Number: Effective Repository Date:2018-07-15 04/29/2018 MACI Reich [id number] Insurance:MEDICAL SPEELMANDOB: [facility] [id number] Vista Regional Hospital [address]Hlf: Number: Repository [id number] (HP) Date:0316-07-53WE [place] [phone]: 04/29/2018 Secondary NOT GIVENUNK [place] Insurance:SELF PAY [facility] Number: Effective Repository Date:2018-04-23 04/23/2018 MACI Murillo Primary MARCUS Reich [id number] Insurance:MEDICAL SPEELMANDOB: [facility] [id number] [place] [address]Yof: Number: Repository [id number] (HP) Date:2742-45-92NP [place] [phone]: 04/23/2018 Secondary NOT GIVENUNK [place] Insurance:SELF PAY [facility] Number: Effective Repository Date:2018-04-23 04/23/2018 MACI Murillo Primary MARCUS Reich [id number] Insurance:MEDICAL SPEELMANDOB: [facility] [id number] [facility] [place] [address]Lid: Number: Repository [id number] (HP) Date:3072-34-41MG [place] [phone]: 04/23/2018 Secondary NOT GIVENUNK [place] Insurance:SELF PAY [facility] Number: Effective Repository Date:2018-04-22 04/14/2018 MACI Murillo Primary MARCUS Reich [id number] Insurance:MEDICAL SPEELMANDOB: [facility] [id number] [address]Zqp: Number: Repository [id number] (HP) Date:9008-18-39ZP [address] [address]AM: 04/14/2018 Secondary NOT GIVENUNK Rachana Insurance:SELF PAY [facility] Number: Effective Repository Date:2018-04-06 04/14/2018 MACI Murillo Primary MARCUS Reich [id number] Insurance:MEDICAL SPEELMANDOB: [facility] [id number] Vista Regional Hospital [address]Wcd: Number: Repository [id number] (HP) Date:8589-47-54RI [address] [address]GZ: 04/14/2018 Secondary NOT GIVENUNK [place]ach[place] Insurance:SELF PAY [facility] Number: Effective Repository Date:2018-04-06 04/14/2018 MACI Murillo Primary MACRUS Wong Rachana [id number] Insurance:MEDICAL SPEELMANDOB: [facility] [id number] Vista Regional Hospital [address]Pmy: Number: Repository [id number] (HP) Date:5703-25-84VQ [address] [address]UZ: 04/14/2018 Secondary NOT GIVENUNK [place] Insurance:SELF PAY [facility] Number: Effective Repository Date:2018-04-14 04/06/2018 MACI Murillo Primary MARCUS Reich [id number] Insurance:MEDICAL SPEELMANDOB: [facility] [id number] Vista Regional Hospital [address]Ene: Number: Repository [id number] (HP) Date:3872-26-67JI [address] [address]RE: 04/06/2018 Secondary NOT GIVENUNK [place]ach[place] Insurance:SELF PAY [facility] Number: Effective Repository Date:2018-04-06 04/03/2018 MACI Murillo Primary MARCUS Reich [id number] Insurance:MEDICAL SPEELMANDOB: [facility] [id number] Vista Regional Hospital [address]Apl: Number: Repository [id number] (HP) Date:5325-43-92WW [address] [place] [address]PX: 04/03/2018 Secondary NOT GIVENUNK [place] Insurance:SELF PAY [facility] Number: Effective Repository Date:2018-04-03 10/28/2017 MACI Maldonado MARCUS Wong [place] [id number] Insurance:MEDICAL SPEELMANDOB: [facility] [id number] Vista Regional Hospital [address]Sdg: Number: Repository [id number] (HP) Date:8079-12-29QC [address] [place] [address]DD: 10/28/2017 Secondary NOT GIVENUNK [place] Insurance:SELF PAY [facility] Number: Effective Repository Date:2017-10-09 10/15/2017 MACI Maldonado MARCUS Wong Rachana [id number] Insurance:MEDICAL SPEELMANDOB: [facility] [id number] Vista Regional Hospital [address]Gxo: Number: Repository [id number] (HP) Date:0898-15-60JS [address] [address]HL: 10/15/2017 Secondary NOT GIVENUNK [place]ach[place] Insurance:SELF PAY [facility] Number: Effective Repository Date:2017-07-22 10/15/2017 MACI Maldonado MARCUS Wong Rachana [id number] Insurance:MEDICAL SPEELMANDOB: [facility] [id number] Vista Regional Hospital [address]Iih: Number: Repository [id number] (HP) Date:0368-90-17SM [address] [place] [address]HV: 10/15/2017 Secondary NOT GIVENUNK Rach[place] Insurance:SELF PAY [facility] Number: Effective Repository Date:2017-10-15 09/10/2017 MACI Murillo Primary MARCUS Reich [id number] Insurance:MEDICAL SPEELMANDOB: [facility] [id number] Vista Regional Hospital [address]Pis: Number: Repository [id number] (HP) Date:0627-53-11AK [address] [address]VK: 09/10/2017 Secondary NOT GIVENUNK [place] Insurance:SELF PAY [facility] Number: Effective Repository Date:2017-09-10 09/10/2017 MACI Murillo Primary MARCUS Reich [id number] Insurance:MEDICAL SPEELMANDOB: [facility] [id number] Vista Regional Hospital [address]Moc: Number: Repository [id number] (HP) Date:9503-52-85OA [address] [place] [address]IO: 09/10/2017 Secondary NOT GIVENUNK [place] Insurance:SELF PAY [facility] Number: Effective Repository Date:2017-09-10
== END ==
PROVIDERS: Family Provider Family Medicine; PCP Family Medicine; Referring Provider Internal Medicine Critical Care Medicine; Visit Provider Internal Medicine Critical Care Medicine
DX: R93.89 Abnormal findings on diagnostic imaging of other specified body structures (principal); J45.909 Unspecified asthma, uncomplicated
CPT/HCPCS: 71250

== ENCOUNTER 2018-09-01 01:13 | Emergency (ER) | payer OTHER, SELFPAY ==
[2017-05-16 09:58] VITALS: BMI 30.9
[2018-09-01 01:13] VITALS: BP 150/112; PULSE 43; RESP 10; TEMP 36.4; O2SAT 98; BMI 29.5
--- NOTE | 2018-09-01 01:15 | ED.RN ---
CALLED FOR EKG PER RN REQUEST, PULLED OLD EKGS FOR
[2018-09-01 01:21] VITALS: BP 168/97; PULSE 48; RESP 21; O2SAT 99
--- NOTE | 2018-09-01 01:27 | EKG12_ITS ---
Test Reason : REPEAT Blood Pressure : / mmHG Vent. Rate : 052 BPM Atrial Rate : 052 BPM P-R Int : 216 ms QRS Dur : 088 ms QT Int : 448 ms P-R-T Axes : 029 011 003 degrees QTc Int : 416 ms Sinus bradycardia with sinus arrhythmia with 1st degree A-V block with occasional Premature ventricul ar complexes Otherwise normal ECG Confirmed by LISSET SPANN, LUCIA ([id number]), magazine editor GARRY REID ([id number]) on 09/01/2018 5:16:40 PM Referred By: GERARD Confirmed By:LUCIA DARLING MD
--- NOTE | 2018-09-01 01:27 | RAD_ITS ---
STUDY: X-RAY CHEST REASON FOR EXAM: Male, 63 years old. Onset of chest pain 2 hours ago. TECHNIQUE: AP portable chest. COMPARISON: June 24, 2017. FINDINGS: The lungs are clear and expanded. There is no demonstrated pleural abnormality. Normal size heart. Normal mediastinum and berna. Normal visualized pulmonary arteries. Normal visualized aortic arch and descending thoracic aorta. Normal visualized thoracic spine. Normal visualized ribs, clavicles, and shoulders. There is no demonstrated abnormality of the visualized soft tissue structures of the upper abdomen. RAD/Chest 1 View (Portable) IMPRESSION: No acute cardiopulmonary disease. Electronically Signed: Ishmael Rowan MD at 1:50 EST , Service support ,
[2018-09-01 01:35] LABS: Absolute Lymphocyte Count 1.72 X10^3/ul (0.83-4.51); Absolute Neutrophil Count 5.8 X10^3/uL (2.0-7.7); Basophil# 0.06 X10^3/uL; Basophil% 0.7 % (0-1); Eosinophil# 0.31 X10^3/uL; Eosinophils% 3.4 % (0-5); Hematocrit 48.2 % (40-54); Lymphocyte # 1.72 X10^3/ul (4.0); Lymphocyte % 19.1 % (19-41); Mean Corp Hgb Conc 35.3 g/gl (32-36); Mean Corpuscular Hgb 33.3 pg (27.0-32.0); Mean Corpuscular Volume 94.5 fL (80-94); Mean Platelet Vol. 9.1 fl (6.2-12.0); Monocyte# 1.11 X10^3/uL; Monocyte% 12.3 % (0-10); Neutrophil # 5.75 X10^3/uL (2.7-7.7); Neutrophil % 64.1 % (47-70); Platelet Count 186 K/mm3 (150-450); RBC Distribution Width CV 13.8 % (11.6-14.6); RBC Distribution Width SD 46.6 fl (35.1-43.9)
[2018-09-01 01:39] LABS: POSITIVE COUNT NO; POSITIVE DIFFERENTIAL NO; POSITIVE MORPHOLOGY NO
[2018-09-01] MEDS: Morphine 4 MG/ML Syringe IV (01:40)
[2018-09-01] MEDS: Ondansetron 4 MG/2 ML Vial IV (01:41)
[2018-09-01] MEDS: Aspirin 81 MG TAB.CHEW 324 MG PO (01:41)
[2018-09-01] MEDS: 0.9% Normal Saline 1,000 ML 150 ML IV (01:41)
--- NOTE | 2018-09-01 01:51 | ED.VISSUMM ---
- ER Visit Summary Date of Service: 09/01/18 Chief Complaint: Chest and abdominal pain History of Present Illness: The patient is a 63 M with a 2-hour history of lower chest and upper abdominal pain. He describes a burning and pressure sensation over the epigastrium. He reports nausea but no vomiting. He had a similar episode on the evening of August 29 lasted approximately 4 hours and improved only after he vomited. Patient does have history of coronary artery disease and does have cardiac stent. He has a history of reflux but states this pain does not feel like his reflux. Physical Examination: Blood pressure is 150/112, temperature 97.5, heart rate 43, respiratory rate 10, pulse ox 98% on room air. Patient sitting upright in bed. He appears uncomfortable but in no distress. Head neck examination unremarkable. Heart is bradycardic. Lungs sounds are clear. Chest wall is nontender. Abdomen is soft with focal tenderness in the epigastrium. No guarding or rebound. Hypoactive bowel sounds are noted throughout. Test Results: EKG is sinus bradycardia at 47 bpm with a single PVC. No acute ST change noted. Portable chest x-ray shows no acute disease. CBC was normal white count hemoglobin of 17.0. Chemistry studies unremarkable. LFTs and lipase normal. Troponin is less than 0.015. Emergency Department Course and Treatment: Patient was given aspirin, morphine, Zofran, and IV Pepcid. On repeat evaluation his pain is resolved. Patient's pain seems to be focal over the epigastrium. He does, however, have significant cardiac history. 3-hour repeat EKG continues to show no acute ischemia and repeat troponin remains less than 0.015. Patient is currently taking omeprazole 20 mg at dinnertime. I asked him to double it to 40 mg. He is also to follow-up with his primary care physician for abdominal ultrasound to evaluate his gallbladder. Of note, patient did have a recent CT scan of the chest with comment about unremarkable upper abdomen. When I reviewed the images the gallbladder is not fully seen on these images. Treatment Plan: [] Disposition: Discharge Impression: Epigastric pain This note was generated with [employer] dictation software. It may contain incorrect words, spelling, and punctuation that were not noted in review of the chart prior to signing ED Disposition - Plan for ED Patient: Chief Complaint: Chest Pain Referrals: Elmo Snow MD [Primary Care Provider] -
[2018-09-01 01:59] LABS: AST(SGOT) 30 U/L (15-37); Alanine Aminotransfer ALT/SGPT 26 U/L (16-61); Albumin, Serum 3.8 g/dL (3.2-5.0); Alkaline Phosphatase 107 U/L (45-117); Anion Gap 7 (5-15); BUN 19 mg/dL (7-18); BUN/Creat Ratio 18.8 RATIO (10-20); Bilirubin, Direct 0.12 mg/dL (0.00-0.30); Calcium,Total 8.8 mg/dL (8.5-10.1); Chloride 110 mmol/L (98-107); Creatinine, Serum 1.01 mg/dL (0.70-1.30); EST Glomerular Filtration Rate 79 mL/min (>60); Est Glom Filt Rate - Afr Amer 96 mL/min (>60); Globulin 3.7 g/dL (2.2-4.2); Glucose 91 mg/dL (74-106); Lipase 117 U/L (73-393); Potassium 4.5 mmol/L (3.5-5.1); Protein, Total 7.5 g/dL (6.4-8.2); Sodium Level 141 mmol/L (136-145)
[2018-09-01 03:27] VITALS: BP 106/77; PULSE 50; RESP 18; O2SAT 97
--- NOTE | 2018-09-01 04:20 | EKG12_ITS ---
Test Reason : CP Blood Pressure : / mmHG Vent. Rate : 047 BPM Atrial Rate : 047 BPM P-R Int : 200 ms QRS Dur : 094 ms QT Int : 452 ms P-R-T Axes : 040 034 037 degrees QTc Int : 400 ms Sinus bradycardia with occasional Premature ventricular complexes Possible Left atrial enlargement Borderline ECG Confirmed by LISSET SPANN, LUCIA ([id number]), rewrite editor GARRY REID ([id number]) on 09/01/2018 5:16:54 PM Referred By: GERARD Confirmed By:LUCIA DARLING MD
--- NOTE | 2018-09-01 05:00 | ED.DEP ---
ED Disposition - Plan for ED Patient: Disposition: Home or Assisted Living Chief Complaint: Chest Pain Instructions: ED Epigastric Pain [facility] Referrals: Elmo Snow MD [Primary Care Provider] - As soon as possible
[2018-09-01 05:03] VITALS: BP 116/80; PULSE 50; PULSE 51; RESP 14; RESP 16; O2SAT 97
== END 2018-09-01 05:19 | disposition home or self-care (01) ==
PROVIDERS: Emergency Provider Emergency Medicine; Family Provider Family Medicine; PCP Family Medicine
DX: R10.13 Epigastric pain (principal); R11.0 Nausea; I49.3 Ventricular premature depolarization; I25.10 Atherosclerotic heart disease of native coronary artery without angina pectoris; J44.9 Chronic obstructive pulmonary disease, unspecified; K21.9 Gastro-esophageal reflux disease without esophagitis; I10 Essential (primary) hypertension; E78.00 Pure hypercholesterolemia, unspecified; Z86.73 Personal history of transient ischemic attack (TIA), and cerebral infarction without residual deficits; Z85.46 Personal history of malignant neoplasm of prostate; Z95.5 Presence of coronary angioplasty implant and graft; Z79.82 Long term (current) use of aspirin; Z79.02 Long term (current) use of antithrombotics/antiplatelets; Z79.899 Other long term (current) drug therapy
CPT/HCPCS: 71045; 80048; 80076; 83690; 84484; 85025; 93005; 96361; 96374; 96375; 99285; J7030; A4216; J2405; J3490

== ENCOUNTER → 2019-01-13 | Outpatient (CLI) | payer OTHER, SELFPAY ==
[2017-05-16 09:58] VITALS: BMI 30.9
[2019-01-13 08:57] VITALS: BMI 27.8
[2019-01-13 09:44] LABS: Absolute Lymphocyte Count 1.18 X10^3/ul (0.83-4.51); Absolute Neutrophil Count 4.2 X10^3/uL (2.0-7.7); Basophil# 0.03 X10^3/uL; Basophil% 0.5 % (0-1); Eosinophil# 0.17 X10^3/uL; Eosinophils% 2.6 % (0-5); Hematocrit 49.1 % (40-54); Hemoglobin 16.9 g/dl (13.0-16.5); Lymphocyte # 1.18 X10^3/ul (4.0); Lymphocyte % 18.4 % (19-41); Mean Corp Hgb Conc 34.4 g/gl (32-36); Mean Corpuscular Hgb 32.1 pg (27.0-32.0); Mean Corpuscular Volume 93.3 fL (80-94); Mean Platelet Vol. 8.9 fl (6.2-12.0); Monocyte# 0.79 X10^3/uL; Monocyte% 12.3 % (0-10); Neutrophil # 4.22 X10^3/uL (2.7-7.7); Neutrophil % 65.7 % (47-70); Platelet Count 176 K/mm3 (150-450); RBC Distribution Width CV 13.6 % (11.6-14.6); RBC Distribution Width SD 46.2 fl (35.1-43.9); Red Blood Count 5.26 M/mm3 (4.6-6.2); White Blood Count 6.4 K/mm3 (4.4-11.0)
[2019-01-13 09:46] LABS: POSITIVE COUNT NO; POSITIVE DIFFERENTIAL NO; POSITIVE MORPHOLOGY NO
[2019-01-20 03:06] LABS: Alternaria alternata <0.10 kU/L (Class 0); Bermuda Grass <0.10 kU/L (Class 0); Bluegrass, Kentucky <0.10 kU/L (Class 0); Cat Hair/Dander, Standard <0.10 kU/L (Class 0); D farinae Mite <0.10 kU/L (Class 0); D pteronyssinus <0.10 kU/L (Class 0); Dog Epithelia <0.10 kU/L (Class 0); Elm, American White <0.10 kU/L (Class 0); Oak, White <0.10 kU/L (Class 0); Plantain, English <0.10 kU/L (Class 0); Ragweed, Short/Common <0.10 kU/L (Class 0)
[2019-01-20 07:07] LABS: Aspirgillus flavus Negative (Neg:<1:1); Aspirgillus fumigatus Negative (Neg:<1:1); Aspirgillus niger Negative (Neg:<1:1)
[2019-01-20 12:19] LABS: Immunoglobulin E 27 IU/mL (6-495)
[2019-01-20 12:25] LABS: Mouse Urine <0.10 kU/L (Class 0)
== END | disposition home or self-care (01) ==
LOC: PAVLAB 09:24
PROVIDERS: Family Provider Family Medicine; PCP Family Medicine; Referring Provider Nurse Practitioner Acute Care; Visit Provider Nurse Practitioner Acute Care
DX: J44.1 Chronic obstructive pulmonary disease with (acute) exacerbation (principal); J45.901 Unspecified asthma with (acute) exacerbation
CPT/HCPCS: 36415; 82785; 85025; 86003; 86606

== ENCOUNTER → 2019-03-16 | Outpatient (CLI) | payer OTHER, SELFPAY ==
[2017-05-16 09:58] VITALS: BMI 30.9
[2019-02-15 08:15] VITALS: BMI 29.1
== END | disposition home or self-care (01) ==
LOC: LABSPEC 15:55
PROVIDERS: Family Provider Family Medicine; PCP Family Medicine; Referring Provider Nurse Practitioner Acute Care; Visit Provider Nurse Practitioner Acute Care
DX: R05 Cough (principal)
CPT/HCPCS: 87070; 87077; 87186; 87205

== ENCOUNTER → 2020-03-10 07:12 | Outpatient (CLI) | payer OTHER, SELFPAY ==
[2017-05-16 09:58] VITALS: BMI 30.9
[2020-02-29 05:30] VITALS: BMI 30.4
[2020-03-10 08:15] LABS: AST(SGOT) 18 U/L (15-37); Alanine Aminotransfer ALT/SGPT 32 U/L (16-61); Albumin, Serum 3.5 g/dL (3.2-5.0); Alkaline Phosphatase 97 U/L (45-117); Bilirubin, Direct 0.19 mg/dL (0.00-0.30); Cholesterol 136 mg/dL (200); Globulin 3.4 g/dL (2.2-4.2); High Density Lipoprotein 41 mg/dL; Protein, Total 6.9 g/dL (6.4-8.2); Triglycerides 69 mg/dL; Very Low Density Lipoprotein 14 mg/dL (5-40)
== END ==
PROVIDERS: PCP Family Medicine; Referring Provider Physician Assistant Medical; Visit Provider Physician Assistant Medical
DX: E78.5 Hyperlipidemia, unspecified (principal)
CPT/HCPCS: 36415; 80061; 80076

== ENCOUNTER → 2020-08-17 | Outpatient (CLI) | payer OTHER, SELFPAY ==
[2017-05-16 09:58] VITALS: BMI 30.9
== END | disposition home or self-care (01) ==
LOC: LABSPEC 08:33
PROVIDERS: PCP Family Medicine; Referring Provider Nurse Practitioner Acute Care; Visit Provider Nurse Practitioner Acute Care
DX: J44.9 Chronic obstructive pulmonary disease, unspecified (principal)
CPT/HCPCS: 87070; 87077; 87205

== ENCOUNTER → 2021-07-20 08:10 | Outpatient (CLI) | payer MEDICARE, SELFPAY ==
[2017-05-16 09:58] VITALS: BMI 30.9
[2021-07-20 08:22] VITALS: BP 123/83; PULSE 72; RESP 16; TEMP 36.1; O2SAT 96
[2021-07-20] MEDS: Mepolizumab 100 MG VIAL SQ (08:45)
== END ==
PROVIDERS: PCP Family Medicine; Referring Provider Nurse Practitioner Acute Care; Visit Provider Nurse Practitioner Acute Care
DX: J45.50 Severe persistent asthma, uncomplicated (principal)
CPT/HCPCS: 96372; J2182

== ENCOUNTER 2021-08-20 08:23 | Outpatient (CLI) | payer MEDICARE, SELFPAY ==
[2017-05-16 09:58] VITALS: BMI 30.9
[2021-08-20 08:31] VITALS: BP 133/90; PULSE 57; RESP 16; TEMP 36; O2SAT 97; BMI 31.2
[2021-08-20] MEDS: Mepolizumab 100 MG VIAL SQ (09:03)
== END 2021-08-20 23:59 | disposition short-term general hospital (02) ==
PROVIDERS: PCP Family Medicine; Referring Provider Nurse Practitioner Acute Care; Visit Provider Nurse Practitioner Acute Care
DX: Z20.822 Contact with and (suspected) exposure to COVID-19 (principal)
CPT/HCPCS: 96372; J2182

== ENCOUNTER 2021-09-18 08:59 | Outpatient (CLI) | payer MEDICARE, SELFPAY ==
[2017-05-16 09:58] VITALS: BMI 30.9
[2021-09-18 09:03] VITALS: BP 147/97; PULSE 75; RESP 18; TEMP 35.8; O2SAT 99
[2021-09-18] MEDS: Mepolizumab 100 MG VIAL SQ (09:30)
== END 2021-09-18 23:59 | disposition short-term general hospital (02) ==
LOC: MEDOUTP 08:59
PROVIDERS: PCP Family Medicine; Referring Provider Nurse Practitioner Acute Care; Visit Provider Nurse Practitioner Acute Care
DX: J45.50 Severe persistent asthma, uncomplicated (principal)
CPT/HCPCS: 96372; J2182

== ENCOUNTER 2021-10-16 14:27 | Outpatient (CLI) | payer MEDICARE, SELFPAY ==
[2017-05-16 09:58] VITALS: BMI 30.9
[2021-10-16 14:44] VITALS: BP 149/76; PULSE 65; RESP 16; TEMP 35.8; O2SAT 97; BMI 30.9
[2021-10-16] MEDS: Mepolizumab 100 MG VIAL SQ (14:51)
== END 2021-10-16 23:59 | disposition home or self-care (01) ==
LOC: MEDOUTP 14:27
PROVIDERS: PCP Family Medicine; Referring Provider Nurse Practitioner Acute Care; Visit Provider Nurse Practitioner Acute Care
DX: J45.50 Severe persistent asthma, uncomplicated (principal)
CPT/HCPCS: 96372; J2182

== ENCOUNTER 2021-11-16 14:24 | Outpatient (CLI) | payer MEDICARE, SELFPAY ==
[2017-05-16 09:58] VITALS: BMI 30.9
[2021-11-16 14:30] VITALS: BP 129/78; PULSE 76; RESP 16; TEMP 36.1; O2SAT 97; BMI 31.4
[2021-11-16] MEDS: Mepolizumab 100 MG VIAL SQ (14:41)
== END 2021-11-16 23:59 | disposition home or self-care (01) ==
LOC: MEDOUTP 14:24
PROVIDERS: PCP Family Medicine; Referring Provider Nurse Practitioner Acute Care; Visit Provider Nurse Practitioner Acute Care
DX: J45.50 Severe persistent asthma, uncomplicated (principal)
CPT/HCPCS: 96372; J2182

== ENCOUNTER → 2021-12-21 | Outpatient (CLI) | payer MEDICARE, SELFPAY ==
[2017-05-16 09:58] VITALS: BMI 30.9
[2021-12-21 14:32] VITALS: BP 117/76; PULSE 74; RESP 16; TEMP 36.2; O2SAT 95
[2021-12-21] MEDS: Mepolizumab 100 MG VIAL SQ (14:47)
[2021-12-21 14:51] VITALS: BP 114/76; PULSE 65; RESP 18; TEMP 36.8; O2SAT 96
== END | disposition home or self-care (01) ==
LOC: MEDOUTP 14:24
PROVIDERS: PCP Family Medicine; Referring Provider Nurse Practitioner Acute Care; Visit Provider Nurse Practitioner Acute Care
DX: J45.50 Severe persistent asthma, uncomplicated (principal)
CPT/HCPCS: 96372; J2182

== ENCOUNTER → 2022-01-18 | Outpatient (CLI) | payer MEDICARE, SELFPAY ==
[2017-05-16 09:58] VITALS: BMI 30.9
[2022-01-18 14:36] VITALS: BP 119/78; PULSE 65; RESP 16; TEMP 37.1; O2SAT 95; BMI 31.6
[2022-01-18] MEDS: Mepolizumab 100 MG VIAL SQ (14:50)
[2022-01-18 14:54] VITALS: BP 115/78; PULSE 74; RESP 16; TEMP 36.8; O2SAT 95
== END | disposition home or self-care (01) ==
LOC: MEDOUTP 14:27
PROVIDERS: PCP Family Medicine; Referring Provider Nurse Practitioner Acute Care; Visit Provider Nurse Practitioner Acute Care
DX: J45.50 Severe persistent asthma, uncomplicated (principal)
CPT/HCPCS: 96372; J2182

== ENCOUNTER → 2022-02-15 | Outpatient (CLI) | payer MEDICARE, SELFPAY ==
[2017-05-16 09:58] VITALS: BMI 30.9
[2022-02-15 14:36] VITALS: BP 140/88; PULSE 88; RESP 12; TEMP 36.9; O2SAT 95; BMI 31.6
[2022-02-15] MEDS: Mepolizumab 100 MG VIAL SQ (14:52)
== END | disposition home or self-care (01) ==
LOC: MEDOUTP 14:21
PROVIDERS: PCP Family Medicine; Referring Provider Nurse Practitioner Acute Care; Visit Provider Nurse Practitioner Acute Care
DX: J45.50 Severe persistent asthma, uncomplicated (principal)
CPT/HCPCS: 96372; J2182

== ENCOUNTER → 2022-03-15 | Outpatient (CLI) | payer MEDICARE, SELFPAY ==
[2017-05-16 09:58] VITALS: BMI 30.9
[2022-03-15 14:24] VITALS: BP 128/72; PULSE 77; RESP 16; TEMP 36.3; O2SAT 97; BMI 31.6
[2022-03-15] MEDS: Mepolizumab 100 MG VIAL SQ (14:45)
== END | disposition home or self-care (01) ==
LOC: MEDOUTP 14:20
PROVIDERS: PCP Family Medicine; Referring Provider Nurse Practitioner Acute Care; Visit Provider Nurse Practitioner Acute Care
DX: J45.50 Severe persistent asthma, uncomplicated (principal)
CPT/HCPCS: 96372; J2182

== ENCOUNTER → 2022-04-12 | Outpatient (CLI) | payer MEDICARE, SELFPAY ==
[2017-05-16 09:58] VITALS: BMI 30.9
[2022-04-12 14:04] VITALS: BP 129/85; PULSE 60; RESP 16; TEMP 36.2; O2SAT 98; BMI 31.6
[2022-04-12] MEDS: Mepolizumab 100 MG VIAL SQ (14:19)
--- NOTE | 2022-04-12 14:22 | NURSING ---
Pt. declined to stay for observation following Nucala injection.
== END | disposition home or self-care (01) ==
LOC: MEDOUTP 13:58
PROVIDERS: PCP Family Medicine; Referring Provider Nurse Practitioner Acute Care; Visit Provider Nurse Practitioner Acute Care
DX: J45.50 Severe persistent asthma, uncomplicated (principal)
CPT/HCPCS: 96372; J2182

== ENCOUNTER → 2022-05-13 | Outpatient (CLI) | payer MEDICARE, SELFPAY ==
[2017-05-16 09:58] VITALS: BMI 30.9
[2022-05-13 14:34] VITALS: BP 126/73; PULSE 70; TEMP 35.7; O2SAT 97
[2022-05-13] MEDS: Mepolizumab 100 MG VIAL SQ (14:59)
== END | disposition home or self-care (01) ==
LOC: MEDOUTP 14:25
PROVIDERS: PCP Family Medicine; Referring Provider Nurse Practitioner Acute Care; Visit Provider Nurse Practitioner Acute Care
DX: J45.50 Severe persistent asthma, uncomplicated (principal)
CPT/HCPCS: 96372; J2182

== ENCOUNTER → 2022-06-07 | Outpatient (CLI) | payer MEDICARE, SELFPAY ==
[2017-05-16 09:58] VITALS: BMI 30.9
[2022-06-07 13:35] VITALS: BP 127/87; PULSE 78; RESP 16; TEMP 36.6; O2SAT 97
[2022-06-07] MEDS: Mepolizumab 100 MG VIAL SC (13:49)
== END | disposition home or self-care (01) ==
LOC: MEDOUTP 13:28
PROVIDERS: PCP Family Medicine; Referring Provider Nurse Practitioner Acute Care; Visit Provider Nurse Practitioner Acute Care
DX: J45.50 Severe persistent asthma, uncomplicated (principal)
CPT/HCPCS: 96372; J2182

== ENCOUNTER → 2022-07-05 | Outpatient (CLI) | payer MEDICARE, SELFPAY ==
[2017-05-16 09:58] VITALS: BMI 30.9
[2022-07-05 13:32] VITALS: BP 136/90; PULSE 79; RESP 18; TEMP 36.1; O2SAT 97
[2022-07-05] MEDS: Mepolizumab 100 MG VIAL SQ (13:45)
== END | disposition home or self-care (01) ==
LOC: MEDOUTP 13:20
PROVIDERS: PCP Family Medicine; Referring Provider Nurse Practitioner Acute Care; Visit Provider Nurse Practitioner Acute Care
DX: J45.50 Severe persistent asthma, uncomplicated (principal)
CPT/HCPCS: 96372; J2182

== ENCOUNTER → 2022-08-02 | Outpatient (CLI) | payer MEDICARE, SELFPAY ==
[2017-05-16 09:58] VITALS: BMI 30.9
[2022-08-02 13:35] VITALS: BP 123/70; PULSE 85; RESP 16; TEMP 36.1; O2SAT 100; BMI 30.9
[2022-08-02] MEDS: Mepolizumab 100 MG VIAL SQ (13:55)
== END | disposition home or self-care (01) ==
LOC: MEDOUTP 13:27
PROVIDERS: PCP Family Medicine; Referring Provider Nurse Practitioner Acute Care; Visit Provider Nurse Practitioner Acute Care
DX: J45.50 Severe persistent asthma, uncomplicated (principal)
CPT/HCPCS: 96372; J2182

== ENCOUNTER → 2022-08-30 | Outpatient (CLI) | payer MEDICARE, SELFPAY ==
[2017-05-16 09:58] VITALS: BMI 30.9
[2022-08-30 11:58] VITALS: BP 129/88; PULSE 57; RESP 16; TEMP 36.1; O2SAT 98; BMI 30.9
[2022-08-30] MEDS: Mepolizumab 100 MG VIAL SQ (12:09)
== END | disposition home or self-care (01) ==
LOC: MEDOUTP 11:52
PROVIDERS: PCP Family Medicine; Referring Provider Nurse Practitioner Acute Care; Visit Provider Nurse Practitioner Acute Care
DX: J45.50 Severe persistent asthma, uncomplicated (principal)
CPT/HCPCS: 96372; J2182

== ENCOUNTER → 2022-09-27 | Outpatient (CLI) | payer MEDICARE, SELFPAY ==
[2017-05-16 09:58] VITALS: BMI 30.9
[2022-09-27 13:17] VITALS: BP 114/82; PULSE 90; RESP 18; TEMP 36.2; O2SAT 97; BMI 30.9
[2022-09-27] MEDS: Mepolizumab 100 MG VIAL SQ (13:38)
== END | disposition home or self-care (01) ==
LOC: MEDOUTP 12:57
PROVIDERS: PCP Family Medicine; Referring Provider Nurse Practitioner Acute Care; Visit Provider Nurse Practitioner Acute Care
DX: J45.50 Severe persistent asthma, uncomplicated (principal)
CPT/HCPCS: 96372; J2182

== ENCOUNTER → 2022-10-25 | Outpatient (CLI) | payer MEDICARE, SELFPAY ==
[2017-05-16 09:58] VITALS: BMI 30.9
[2022-10-25 13:01] VITALS: BP 133/88; PULSE 54; RESP 16; TEMP 35.9; O2SAT 98; BMI 30.9
[2022-10-25] MEDS: Mepolizumab 100 MG VIAL SC (13:21)
== END | disposition home or self-care (01) ==
LOC: MEDOUTP 12:52
PROVIDERS: PCP Family Medicine; Referring Provider Nurse Practitioner Acute Care; Visit Provider Nurse Practitioner Acute Care
DX: J45.50 Severe persistent asthma, uncomplicated (principal)
CPT/HCPCS: 96372; J2182

== ENCOUNTER → 2022-11-22 | Outpatient (CLI) | payer MEDICARE, SELFPAY ==
[2017-05-16 09:58] VITALS: BMI 30.9
[2022-11-22 08:32] VITALS: BP 132/84; PULSE 72; RESP 18; TEMP 36.3; O2SAT 98; BMI 30.9
[2022-11-22] MEDS: Mepolizumab 100 MG VIAL SQ (08:59)
== END | disposition home or self-care (01) ==
LOC: MEDOUTP 08:27
PROVIDERS: PCP Family Medicine; Referring Provider Nurse Practitioner Acute Care; Visit Provider Nurse Practitioner Acute Care
DX: J45.50 Severe persistent asthma, uncomplicated (principal)
CPT/HCPCS: 96372; J2182

== ENCOUNTER 2022-12-20 08:58 | Outpatient (CLI) | payer MEDICARE, SELFPAY ==
[2017-05-16 09:58] VITALS: BMI 30.9
[2022-12-20 09:02] VITALS: BP 146/97; PULSE 66; RESP 16; TEMP 36.3; O2SAT 98; BMI 30.9
[2022-12-20] MEDS: Mepolizumab 100 MG VIAL SQ (09:21)
== END 2022-12-20 08:59 | disposition home or self-care (01) ==
LOC: MEDOUTP 08:58
PROVIDERS: PCP Family Medicine; Referring Provider Nurse Practitioner Acute Care; Visit Provider Nurse Practitioner Acute Care
DX: J45.50 Severe persistent asthma, uncomplicated (principal)
CPT/HCPCS: 96372; J2182

== ENCOUNTER 2023-01-17 09:27 | Outpatient (CLI) | payer MEDICARE, SELFPAY ==
[2017-05-16 09:58] VITALS: BMI 30.9
[2023-01-17 09:36] VITALS: BP 125/82; PULSE 80; RESP 16; O2SAT 97; BMI 30.9
[2023-01-17] MEDS: Mepolizumab 100 MG VIAL SQ (09:47)
== END 2023-01-17 09:28 | disposition home or self-care (01) ==
PROVIDERS: PCP Family Medicine; Referring Provider Nurse Practitioner Acute Care; Visit Provider Nurse Practitioner Acute Care
DX: J45.50 Severe persistent asthma, uncomplicated (principal)
CPT/HCPCS: 96372; J2182

== ENCOUNTER 2023-02-14 08:55 | Outpatient (CLI) | payer MEDICARE, SELFPAY ==
[2017-05-16 09:58] VITALS: BMI 30.9
[2023-02-14 09:26] VITALS: BP 137/86; PULSE 64; RESP 16; TEMP 36.2; O2SAT 96; BMI 30.9
[2023-02-14] MEDS: Mepolizumab 100 MG VIAL SC (09:43)
== END 2023-02-14 08:56 | disposition home or self-care (01) ==
LOC: MEDOUTP 08:55
PROVIDERS: PCP Family Medicine; Referring Provider Nurse Practitioner Acute Care; Visit Provider Nurse Practitioner Acute Care
DX: J45.50 Severe persistent asthma, uncomplicated (principal)
CPT/HCPCS: 96372; J2182

== ENCOUNTER 2023-03-14 09:31 | Outpatient (CLI) | payer MEDICARE, SELFPAY ==
[2017-05-16 09:58] VITALS: BMI 30.9
[2023-03-14 09:37] VITALS: BP 133/79; PULSE 51; RESP 16; TEMP 36.2; O2SAT 97; BMI 30.9
[2023-03-14] MEDS: Mepolizumab 100 MG VIAL SC (09:53)
== END 2023-03-14 09:32 | disposition home or self-care (01) ==
LOC: MEDOUTP 09:31
PROVIDERS: PCP Family Medicine; Referring Provider Nurse Practitioner Acute Care; Visit Provider Nurse Practitioner Acute Care
DX: J45.50 Severe persistent asthma, uncomplicated (principal)
CPT/HCPCS: 96372; J2182

== ENCOUNTER 2023-04-11 09:55 | Outpatient (CLI) | payer MEDICARE, SELFPAY ==
[2017-05-16 09:58] VITALS: BMI 30.9
[2023-04-11 10:02] VITALS: BP 127/79; PULSE 61; RESP 16; TEMP 36.6; O2SAT 97; BMI 30.9
[2023-04-11] MEDS: Mepolizumab 100 MG VIAL SC (10:46)
== END 2023-04-11 09:56 | disposition home or self-care (01) ==
LOC: MEDOUTP 09:55
PROVIDERS: PCP Family Medicine; Referring Provider Nurse Practitioner Acute Care; Visit Provider Nurse Practitioner Acute Care
DX: J45.50 Severe persistent asthma, uncomplicated (principal)
CPT/HCPCS: 96372; J2182

== ENCOUNTER 2023-05-09 10:52 | Outpatient (CLI) | payer MEDICARE, SELFPAY ==
[2017-05-16 09:58] VITALS: BMI 30.9
[2023-05-09 10:58] VITALS: BP 119/84; PULSE 48; RESP 16; TEMP 36.1; O2SAT 96; BMI 30.9
[2023-05-09] MEDS: Mepolizumab 100 MG VIAL SC (11:26)
== END 2023-05-09 10:53 | disposition home or self-care (01) ==
LOC: MEDOUTP 10:52
PROVIDERS: PCP Family Medicine; Referring Provider Nurse Practitioner Acute Care; Visit Provider Nurse Practitioner Acute Care
DX: J45.50 Severe persistent asthma, uncomplicated (principal)
CPT/HCPCS: 96372; J2182

== ENCOUNTER 2023-06-06 12:05 | Outpatient (CLI) | payer MEDICARE, SELFPAY ==
[2017-05-16 09:58] VITALS: BMI 30.9
[2023-06-06 12:10] VITALS: BP 133/86; PULSE 54; RESP 16; TEMP 35.7; O2SAT 100
[2023-06-06] MEDS: Mepolizumab 100 MG VIAL SC (12:57)
== END 2023-06-06 12:06 | disposition home or self-care (01) ==
LOC: MEDOUTP 12:05
PROVIDERS: PCP Family Medicine; Referring Provider Nurse Practitioner Acute Care; Visit Provider Nurse Practitioner Acute Care
DX: J45.50 Severe persistent asthma, uncomplicated (principal)
CPT/HCPCS: 96372; J2182

== ENCOUNTER 2023-07-04 10:49 | Outpatient (CLI) | payer MEDICARE, SELFPAY ==
[2017-05-16 09:58] VITALS: BMI 30.9
[2023-07-04 10:58] VITALS: BP 118/77; PULSE 63; RESP 16; TEMP 36.2; O2SAT 98; BMI 30.9
[2023-07-04] MEDS: Mepolizumab 100 MG VIAL SC (11:28)
== END 2023-07-04 10:50 | disposition home or self-care (01) ==
PROVIDERS: PCP Family Medicine; Referring Provider Nurse Practitioner Acute Care; Visit Provider Nurse Practitioner Acute Care
DX: J45.50 Severe persistent asthma, uncomplicated (principal)
CPT/HCPCS: 96372; J2182

== ENCOUNTER 2023-08-01 10:52 | Outpatient (CLI) | payer MEDICARE, SELFPAY ==
[2017-05-16 09:58] VITALS: BMI 30.9
[2023-08-01 11:05] VITALS: BP 116/75; PULSE 60; RESP 16; TEMP 35.9; O2SAT 96; BMI 30.9
[2023-08-01] MEDS: Mepolizumab 100 MG VIAL SC (11:20)
== END 2023-08-01 10:53 | disposition home or self-care (01) ==
LOC: MEDOUTP 10:52
PROVIDERS: PCP Family Medicine; Referring Provider Nurse Practitioner Acute Care; Visit Provider Nurse Practitioner Acute Care
DX: J45.50 Severe persistent asthma, uncomplicated (principal)
CPT/HCPCS: 96372; J2182

== ENCOUNTER 2023-08-29 10:47 | Outpatient (CLI) | payer MEDICARE, SELFPAY ==
[2017-05-16 09:58] VITALS: BMI 30.9
[2023-08-29 11:08] VITALS: BP 122/87; PULSE 79; RESP 16; TEMP 35.9; O2SAT 97; BMI 30.9
[2023-08-29] MEDS: Mepolizumab 100 MG VIAL SC (11:15)
--- OUTSIDE RECORDS SUMMARY | 2023-08-29 11:18 | XMS RPT_ITS | CCD ---
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 (P) 185.4 cm (6' 1 ) Wt (P) 107 kg (236 lb) SpO2 95% BMI (P) 31.14 kg/m General Appearance: Well appearing, alert, in no acute distress, well-hydrated, well nourished.. Skin: Skin color, texture, turgor normal, no suspicious rashes or lesions. Ears: External ears normal, canals clear. TMs normal. Nose/Sinuses: No TTP over sinuses. Neck: Supple, no adenopathy; thyroid symmetric, normal size, no bruits. Lungs: scattered wheezing bilaterally with good air entry. No rales, rhonchi or consolidation. Heart: RRR without murmur, gallop, or rubs. No ectopy. Abdomen: Normal abdominal exam, Abdomen soft, non-tender. Bowel sounds normal. No masses, organomegaly. Extremities: No deformities, edema, skin discoloration, clubbing or cyanosis. Good capillary refill. . Health Maintenance List LDL CHOLESTEROL due on 02/02/2022 ADVANCE DIRECTIVE DISCUSSION Never done SHINGRIX VACCINE(1 of 2) due on 08/22/2023 INFLUENZA(1) due on 04/18/2023 ANNUAL PCP TEAM CHRONIC DISEASE VISIT due on 08/22/2023 BP CONTROLLED (<130/80) due on 08/22/2023 COLORECTAL CANCER SCREENING due on 08/23/2023 DIABETES SCREEN due on 08/22/2025 LIPID SCREEN due on 02/02/2026 PROSTATE CANCER SCREENING DISCUSSION due on 10/14/2027 DTAP,TDAP,TD(4 - Td or Tdap) due on 12/11/2027 SPIROMETRY Completed ABDOMINAL AORTIC ANEURYSM SCREENING Completed DEPRESSION ASSESSMENT Completed HEPATITIS C SCREENING Completed COVID-19 VACCINE Completed PNEUMOCOCCAL: 65+ Completed Data reviewed Component Latest Ref Rng & Units 08/22/2022 08/23/2022 10/14/2022 WBC 3.70 - 11.00 k/uL 6.62 RBC 4.20 - 6.00 m/uL 5.40 Hemoglobin 13.0 - 17.0 g/dL 17.1 (H) Hematocrit 39.0 - 51.0 % 50.1 MCV 80.0 - 100.0 fL 92.8 MCH 26.0 - 34.0 pg 31.7 MCHC 30.5 - 36.0 g/dL 34.1 RDW-CV 11.5 - 15.0 % 12.9 Platelet Count 150 - 400 k/uL 178 MPV 9.0 - 12.7 fL 9.2 Neut% % 60.6 Abs Neut (ANC) 1.45 - 7.50 k/uL 4.01 Lymph% % 26.1 Abs Lymph 1.00 - 4.00 k/uL 1.73 [place]% % 9.8 Abs [place] <0.87 k/uL 0.65 Eosin% % 0.9 Abs Eosin <0.46 k/uL 0.06 Baso% % 0.9 Abs Baso <0.11 k/uL 0.06 Immature Gran % % 1.7 IMMATURE GRANS (ABS) <0.10 k/uL 0.11 (H) NRBC /100 WBC 0.0 Absolute nRBC <0.01 k/uL <0.01 DTYPE Auto Protein, Total 6.3 - 8.0 g/dL 6.7 Albumin 3.9 - 4.9 g/dL 3.9 Calcium 8.5 - 10.2 mg/dL 9.2 Bilirubin, Total 0.2 - 1.3 mg/dL 0.6 Alkaline Phosphatase 38 - 113 U/L 111 AST 14 - 40 U/L 20 ALT 10 - 54 U/L 21 Glucose 74 - 99 mg/dL 100 (H) BUN 9 - 24 mg/dL 20 Creatinine 0.73 - 1.22 mg/dL 1.07 Sodium 136 - 144 mmol/L 140 Potassium 3.7 - 5.1 mmol/L 4.2 Chloride 97 - 105 mmol/L 106 (H) CO2 22 - 30 mmol/L 24 Anion Gap 9 - 18 mmol/L 10 eGFR >=60 mL/min/1.73m 76 Occult Blood, Stool Negative Negative PSA <2.60 ng/mL 0.22 ASSESSMENT/PLAN: 1. 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 2. SOB (shortness of breath) - ICD9: 786.05, ICD10: R06.02 See above 3. Coronary artery disease involving mentasta heart without angina pectoris, unspecified vessel or lesion type - ICD9: 414.01, ICD10: I25.10 Asymtpomatic on medical management. Keep f/u with cardiology as scheduled. - COMP METABOLIC PANEL - LIPID PANEL, NONFASTING 4. Essential hypertension - ICD9: 401.9, ICD10: I10 - Controlled - Continue current medications - Recommend home blood pressure monitoring, to bring results to next visit - Encouraged sodium restriction, DASH or Mediterranean diet - Recommend regular aerobic exercise 5. Hyperlipidemia, unspecified hyperlipidemia type - ICD9: 272.4, ICD10: E78.5 - Control undetermined, due for labs - Continue current medications - Counseled on healthy diet and regular exercise 6. LESLY on CPAP - ICD9: 327.23, V46.8, ICD10: G47.33 Improved with nightly use on current settings. 7. History of CVA (cerebrovascular accident) - ICD9: V12.54, ICD10: Z86.73 No recurrent symptoms with medical management. 8. Elevated prostate specific antigen (PSA) - ICD9: 790.93, ICD10: R97.20 Stable on last check. F/u with urology. 9. Sensation of fullness in both ears - ICD9: 388.8, ICD10: H93.8X3 Normal exam today. 10. S/P prostatectomy - ICD9: V45.89, ICD10: Z90.79 11. History of prostate cancer - ICD9: V10.46, ICD10: Z85.46 F/u urology recommendations. Vilma Snow MD documented in this encounter [facility] 12-16-2022 Miscellaneous Notes Patient has been identified by name and date of : Yes Requested Prescriptions Pending Prescriptions Disp Refills clopidogrel (PLAVIX) 75 mg tablet 90 tablet 1 Sig: Take 1 tablet by mouth once daily. RX INSTRUCTIONS: Patient aware RX will be sent to pharmacy. No need to notify patient. Patient last office visit: 08/22/22 Patient next office visit: none scheduled Pauly Flores MA documented in this encounter [facility] 08-22-2022 Note HNO ID: [id number] Author: Vilma Snow MD Service: ? Author Type: Physician Type: Progress Notes Filed: 08/22/2022 10:15 AM Note Text: Chief Complaint Patient presents with: Follow Up HPI Maci Redman is a 67 year old male who presents here today for medication follow up. Last OV more than 1 year ago. CAD s/p SHANIQUA to LAD: managed by Dr. Llanos. No changes to regimen at last OV in April. Asymptomatic on medical management. Has not needed nitro since his last OV with cardiology. BP well controlled on current regimen without side effects. Dyspnea: Pulmonology took him off of his Breo because it was not helping at all with his symptoms. Started in Nucala injections which is working well. Given augmentin and prednisone at last OV in June for exacerbation. Lower pressure on his CPAP from 15 to 13 cm H2O which has helped with leaking around his mask. Anxiety/depression: in remission without rx. Not seeing counselor. History of prostate cancer: Patient's PSA increased from 0.14 to 0.21 in the last 6 months. Ovi Peraza has ordered repeat PSA for 10/15 and if it doubles will need MRI and bone scan. Denies change in urinary symptoms, fever/chills, night sweats, weight loss. History of CVA: no recurrent stroke symptoms on secondary stroke prevention. Past medical history, appointments, medications, allergies reviewed. Previous Medical History PAST MEDICAL HISTORY Diagnosis Date Anxiety Asthma Childhood. 10/2017 bronchoscopy/biopsy with inflammation, eosinophils. CAD (coronary artery disease) s/p SHANIQUA to LAD, seeing Dr. Llanos Depression Diaphragmatic hernia without mention of obstruction or gangrene Dyslipidemia Dysphagia Dyspnea With wheezing. Spirometry w/o obstruction 02/01 and 06/03. Has seen Dr. Pearl Esophagitis, unspecified Essential hypertension GERD (gastroesophageal reflux disease) History of CVA (cerebrovascular accident) 06/20/2014 mild Obesity (BMI 30.0-34.9) LESLY (obstructive sleep apnea) Consistently compliant with CPAP. PFO (patent foramen ovale) Prostate cancer (HCC) 2012 s/p prostatectomy, [facility] Previous Surgical History PAST SURGICAL HISTORY Procedure Laterality Date ESOPHAGOGASTRODUODENOSCOPY TRANSORAL DIAGNOSTIC 05/01/2007 EGD ESOPHAGOGASTRODUODENOSCOPY TRANSORAL DIAGNOSTIC 03/21/2013 [facility] EGD PAST SURGICAL HISTORY OF submandibular gland removed PAST SURGICAL HISTORY OF 10/31/14 Robotic Prostatectomy PAST SURGICAL HISTORY OF 04/2017 SHANIQUA to LAD PAST SURGICAL HISTORY OF 06/2017 sinus surgery Family History FAMILY HISTORY Problem Relation Age of Onset Heart Mother CAD. Hypertension Mother Cancer Father Prostate cancer. other (Other) Father Lower lobectomy, not cancerous. No Known Problems Sister No Known Problems Sister No Known Problems Sister No Known Problems Sister Cancer Paternal Grandfather Prostate Cancer. other (Other) Other No allergy, asthma, COPD. Patient Allergies ALLERGIES Allergen Reactions [facility] [* Current Medications Current Outpatient Medications on File Prior to Visit Medication Sig atorvastatin (LIPITOR) 20 mg tablet Take 1 tablet by mouth once daily. pantoprazole DR (PROTONIX) 20 mg tablet TAKE 1 TABLET DAILY BEFORE BREAKFAST. TAKE ON AN EMPTYSTOMACH, 1/2 HOUR BEFORE A MEAL. losartan (COZAAR) 25 mg tablet Take 0.5 tablets by mouth once daily. clopidogrel (PLAVIX) 75 mg tablet Take 1 tablet by mouth once daily. albuterol sulfate (PROAIR HFA INHALATION) Inhale as instructed as needed. NUCALA 100 mg/mL injection Inject 100 mg subcutaneously every 4 weeks. montelukast (SINGULAIR) 10 mg tablet Take 1 tablet by mouth daily at bedtime. NITROGLYCERIN SUBLINGUAL Dissolve under the tongue as needed. CPAP albuterol HFA (VENTOLIN HFA) 90 mcg/actuation inhaler Inhale 2 Puffs as instructed every 4 hours as needed. aspirin 81 mg chewable tablet Take 81 mg by mouth once daily. fluticasone-vilanterol (BREO ELLIPTA) 200-25 mcg/dose inhaler Breo Ellipta 200 mcg-25 mcg/dose powder for inhalation (Patient not taking: No sig reported) fluticasone (FLONASE) 50 mcg/actuation nasal spray Use 2 Sprays in each nostril once daily. Rinse mouth after use. (Patient not taking: No sig reported) No current facility-administered medications on file prior to visit. Social History Social History Tobacco Use Smoking status: Former Packs/day: 1.00 Years: 20.00 Pack years: 20.00 Types: Cigarettes Quit date: 08/18/1989 Years since quittin.0 Smokeless tobacco: Former Types: Snuff Quit date: 01/16/2017 Vaping Use Vaping Use: Never used Substance Use Topics Alcohol use: Yes Alcohol/week: 1.0 standard drink Types: 1 Cans of Beer (12oz) per week Comment: rare-beer Drug use: No Review of Symptoms REVIEW OF SYSTEMS GENERAL: No weight loss, malaise or fevers RESPIRATORY: Admits to chronic SOB and cough which is s (more content not included)... [facility] 08-22-2022 History of Presen t illness Narrative Chief Complaint Patient presents with: Follow Up HPI Maci Redman is a 67 year old male who presents here today for medication follow up. Last OV more than 1 year ago. CAD s/p SHANIQUA to LAD: managed by Dr. Llanos. No changes to regimen at last OV in April. Asymptomatic on medical management. Has not needed nitro since his last OV with cardiology. BP well controlled on current regimen without side effects. Dyspnea: Pulmonology took him off of his Breo because it was not helping at all with his symptoms. Started in Nucala injections which is working well. Given augmentin and prednisone at last OV in June for exacerbation. Lower pressure on his CPAP from 15 to 13 cm H2O which has helped with leaking around his mask. Anxiety/depression: in remission without rx. Not seeing counselor. History of prostate cancer: Patient's PSA increased from 0.14 to 0.21 in the last 6 months. Ovi Peraza has ordered repeat PSA for 10/15 and if it doubles will need MRI and bone scan. Denies change in urinary symptoms, fever/chills, night sweats, weight loss. History of CVA: no recurrent stroke symptoms on secondary stroke prevention. Past medical history, appointments, medications, allergies reviewed. Previous Medical History PAST MEDICAL HISTORY Diagnosis Date Anxiety Asthma Childhood. 10/2017 bronchoscopy/biopsy with inflammation, eosinophils. CAD (coronary artery disease) s/p SHANIQUA to LAD, seeing Dr. Llanos Depression Diaphragmatic hernia without mention of obstruction or gangrene Dyslipidemia Dysphagia Dyspnea With wheezing. Spirometry w/o obstruction 02/01 and 06/03. Has seen Dr. Pearl Esophagitis, unspecified Essential hypertension GERD (gastroesophageal reflux disease) History of CVA (cerebrovascular accident) 06/20/2014 mild Obesity (BMI 30.0-34.9) LESLY (obstructive sleep apnea) Consistently compliant with CPAP. PFO (patent foramen ovale) Prostate cancer (HCC) 2012 s/p prostatectomy, [place] Previous Surgical History PAST SURGICAL HISTORY Procedure Laterality Date ESOPHAGOGASTRODUODENOSCOPY TRANSORAL DIAGNOSTIC 05/01/2007 EGD ESOPHAGOGASTRODUODENOSCOPY TRANSORAL DIAGNOSTIC 03/21/2013 [facility] EGD PAST SURGICAL HISTORY OF submandibular gland removed PAST SURGICAL HISTORY OF 10/31/14 Robotic Prostatectomy PAST SURGICAL HISTORY OF 04/2017 SHANIQUA to LAD PAST SURGICAL HISTORY OF 06/2017 sinus surgery Family History FAMILY HISTORY Problem Relation Age of Onset Heart Mother CAD. Hypertension Mother Cancer Father Prostate cancer. other (Other) Father Lower lobectomy, not cancerous. No Known Problems Sister No Known Problems Sister No Known Problems Sister No Known Problems Sister Cancer Paternal Grandfather Prostate Cancer. other (Other) Other No allergy, asthma, COPD. Patient Allergies ALLERGIES Allergen Reactions [facility] [* Current Medications Current Outpatient Medications on File Prior to Visit Medication Sig atorvastatin (LIPITOR) 20 mg tablet Take 1 tablet by mouth once daily. pantoprazole DR (PROTONIX) 20 mg tablet TAKE 1 TABLET DAILY BEFORE BREAKFAST. TAKE ON AN EMPTYSTOMACH, 1/2 HOUR BEFORE A MEAL. losartan (COZAAR) 25 mg tablet Take 0.5 tablets by mouth once daily. clopidogrel (PLAVIX) 75 mg tablet Take 1 tablet by mouth once daily. albuterol sulfate (PROAIR HFA INHALATION) Inhale as instructed as needed. NUCALA 100 mg/mL injection Inject 100 mg subcutaneously every 4 weeks. montelukast (SINGULAIR) 10 mg tablet Take 1 tablet by mouth daily at bedtime. NITROGLYCERIN SUBLINGUAL Dissolve under the tongue as needed. CPAP albuterol HFA (VENTOLIN HFA) 90 mcg/actuation inhaler Inhale 2 Puffs as instructed every 4 hours as needed. aspirin 81 mg chewable tablet Take 81 mg by mouth once daily. fluticasone-vilanterol (BREO ELLIPTA) 200-25 mcg/dose inhaler Breo Ellipta 200 mcg-25 mcg/dose powder for inhalation (Patient not taking: No sig reported) fluticasone (FLONASE) 50 mcg/actuation nasal spray Use 2 Sprays in each nostril once daily. Rinse mouth after use. (Patient not taking: No sig reported) No current facility-administered medications on file prior to visit. Social History Social History Tobacco Use Smoking status: Former Packs/day: 1.00 Years: 20.00 Pack years: 20.00 Types: Cigarettes Quit date: 08/18/1989 Years since quittin.0 Smokeless tobacco: Former Types: Snuff Quit date: 01/16/2017 Vaping Use Vaping Use: Never used Substance Use Topics Alcohol use: Yes Alcohol/week: 1.0 standard drink Types: 1 Cans of Beer (12oz) per week Comment: rare-beer Drug use: No Review of Symptoms REVIEW OF SYSTEMS GENERAL: No weight loss, malaise or fevers RESPIRATORY: Admits to chronic SOB and cough which is stable today. CARDIOVASCULAR: Negative for chest pain, leg swelling, hypertension, CHF or palpitations GI: No nausea, vomiting, or diarrhea SKIN: Negative for lesions, rash, and itching EXAM: BP 106/70 Pulse 63 Resp 16 Wt 107.4 kg (236 lb 12.8 oz) SpO2 97% BMI 31.24 kg/m General Appearance: Well appearing, alert, in no acute distress, well-hydrated, well nourished.. Skin: Skin color, texture, turgor normal, no suspicious rashes or lesions. Lungs: mild scattered wheezing bilaterally with good air entry. No rales or rhonchi. Heart: RRR without murmur, gallop, or rubs. No ectopy. Abdomen: Normal abdominal exam, Abdomen soft, non-tender. Bowel sounds normal. No masses, organomegaly. Extremities: No deformities, edema, skin discoloration, clubbing or cyanosis. Good capillary refill. . Health Maintenance List BP CONTROLLED (<130/80) Never done SHINGRIX VACCINE(1 of 2) Never done COLORECTAL CANCER SCREENING due on 06/24/2020 LDL CHOLESTEROL due on 02/02/2022 INFLUENZA(1) due on 04/18/2022 ANNUAL PCP TEAM CHRONIC DISEASE VISIT due on 08/09/2022 ADVANCE DIRECTIVE DISCUSSION Never done DEPRESSION ASSESSMENT Never done DIABETES SCREEN due on 08/09/2024 LIPID SCREEN due on 02/02/2026 PROSTATE CANCER SCREENING DISCUSSION due on 08/14/2027 DTAP,TDAP,TD(4 - Td or Tdap) due on 12/11/2027 SPIROMETRY Completed ABDOMINAL AORTIC ANEURYSM SCREENING Completed HEPATITIS C SCREENING Completed COVID-19 VACCINE Completed PNEUMOCOCCAL: 65+ Completed Data reviewed Component Latest Ref Rng & Units 02/02/2021 08/09/2021 02/12/2022 08/14/2022 Protein, Total 6.3 - 8.0 g/dL 6.3 6.5 Albumin 3.9 - 4.9 g/dL 4.0 4.1 Calcium 8.5 - 10.2 mg/dL 9.1 9.6 Bilirubin, Total 0.2 - 1.3 mg/dL 0.6 0.6 Alkaline Phosphatase 38 - 113 U/L 96 96 AST 14 - 40 U/L 16 21 Glucose 74 - 99 mg/dL 97 86 BUN 9 - 24 mg/dL 19 20 Creatinine 0.73 - 1.22 mg/dL 1.06 0.96 Sodium 136 - 144 mmol/L 140 143 Potassium 3.7 - 5.1 mmol/L 4.2 4.4 Chloride 97 - 105 mmol/L 106 (H) 108 (H) CO2 22 - 30 mmol/L 25 26 Anion Gap 9 - 18 mmol/L 9 9 ALT 10 - 54 U/L 18 25 eGFR- >60 >60 eGFR-All Other Races . >60 >60 WBC 3.70 - 11.00 k/uL 5.97 RBC 4.20 - 6.00 m/uL 5.22 Hemoglobin 13.0 - 17.0 g/dL 17.1 (H) Hematocrit 39.0 - 51.0 % 49.6 MCV 80.0 - 100.0 fL 95.0 MCH 26.0 - 34.0 pG 32.8 MCHC 30.5 - 36.0 g/dL 34.5 RDW-CV 11.5 - 15.0 % 12.4 Platelet Count 150 - 400 k/uL 183 MPV 9.0 - 12.7 fL 9.0 Absolute nRBC <0.01 k/uL <0.01 Cholesterol, Total <200 mg/dL 153 Triglyceride <150 mg/dL 81 HDL Cholesterol >39 mg/dL 38 (L) LDL Cholesterol <100 mg/dL 99 Non HDL Cholesterol <130 mg/dL 115 Fasting Time hrs 12 VLDL Cholesterol <30 mg/dL 16 TC:HDL Ratio <5.10 4.03 LDL:HDL Ratio <2.54 2.61 (H) PSA Screening <2.60 ng/mL 0.13 PSA <2.60 ng/mL 0.14 0.21 ASSESSMENT/PLAN: 1. Essential hypertension - ICD9: 401.9, ICD10: I10 (primary diagnosis) - good control - Continue current medication(s) - Encouraged dietary sodium restriction/DASH diet - Recommended regular aerobic exercise. - Reviewed risks of HTN and principles of treatment - Goal of BP <130/80 2. Coronary artery disease involving mentasta heart without angina pectoris, unspecified vessel or lesion type - ICD9: 414.01, ICD10: I25.10 S/p SHANIQUA. On alf DAPT. Asymptomatic on medical management. No change to regimen at last OV with cardiology. F/u as recommended. - CBC + DIFF - COMP METABOLIC PANEL - LIPID PANEL, NONFASTING 3. SOB (shortness of breath) - ICD9: 786.05, ICD10: R06.02 Chronic. Improving with Nucala injections. F/u with pulmonology. 4. Severe persistent asthma, uncomplicated - ICD9: 493.90, ICD10: J45.50 Improving on current regimen. Recommendations per pulmonology. 5. LESLY on CPAP - ICD9: 327.23, V46.8, ICD10: G47.33, Z99.89 Improved with lower pressure to 13 cm H2O. Continue nightly use. 6. History of CVA (cerebrovascular accident) - ICD9: V12.54, ICD10: Z86.73 No recurrent symptoms on current regimen 7. Prostate cancer (HCC) - ICD9: 185, ICD10: C61 S/p prostatectomy. PSA increasing gradually. Encouraged him to check PSA next month as ordered and will f/u results/recommendations. No change in symptoms. 8. Elevated prostate specific antigen (PSA) - ICD9: 790.93, ICD10: R97.20 See above. 9. Gastroesophageal reflux disease, unspecified whether esophagitis present - ICD9: 530.81, ICD10: K21.9 - Continue treatment with Protonix 20 mg QD 10. Screening for colon cancer - ICD9: V76.51, ICD10: Z12.11 - FECAL OCCULT BLOOD TEST 11. Anxiety with depression - ICD9: 300.4, ICD10: F41.8 In remission. Will monitor. Vilma Snow MD documented in this encounter [facility] 08-21-2022 Miscellaneous Notes Patient has been identified by name and date of : Patient phones for refill(s): Requested Prescriptions Pending Prescriptions Disp Refills atorvastatin (LIPITOR) 20 mg tablet 90 tablet 0 Sig: Take 1 tablet by mouth once daily. pantoprazole DR (PROTONIX) 20 mg tablet 90 tablet 0 Sig: TAKE 1 TABLET DAILY BEFORE BREAKFAST. TAKE ON AN EMPTYSTOMACH, 1/2 HOUR BEFORE A MEAL. losartan (COZAAR) 25 mg tablet 45 tablet 0 Sig: Take 0.5 tablets by mouth once daily. Date of last office visit in primary care: 08/09/2021, has appt 08/22/2022 Last 2 Encounter Wt Readings: Date: Wt: 08/16/2022 106.1 kg (234 lb) 08/14/2021 107.3 kg (236 lb 9.6 oz) Previous labs/tests for medication: Blood Pressure: BUN (mg/dL) Date Value 08/09/2021 20 Sodium (mmol/L) Date Value 08/09/2021 143 Last 1 Encounter BP Readings: Date: BP: 08/16/2022 110/84 Please advise. Thank you. Genny Lawson LPN documented in this encounter [facility] 08-16-2022 Note HNO ID: [id number] Author: Ovi Peraza PA-C Service: ? Author Type: Physician Screen Tacker Type: Progress Notes Filed: 08/16/2022 2:15 PM Note Text: ON LICENSE OF [facility] ESTABLISHED PATIENT CLINIC NOTE Some elements copied from his previous note, which have been updated where appropriate, and all reflect current medical decision making from date of this visit. SERVICE DATE: 08/16/2022 SERVICE TIME: 8:34 AM NAME: Maci Redman CHIEF COMPLAINT: Follow up PSA HISTORY OF PRESENT ILLNESS: Maci Redman is a 67 year old Male with PMH including Prostate Cancer presenting with PSA for follow-up he has a history of Prostate Cancer and s/p RP 10/31/2014, doing very well with still undetectable PSA PSA today 0.13, we discussed if PSA is -0.2 or higher I will get a PSA in 2 months for doubling time In fact his PSA this time is 0.21 and I have ordered the PSA to be done in Sep 2022 if it reaches > 0.4 we discussed Having him see Radiology Oncology for Consult on IMRT if this is a biochemical recurrence He did have a focally positive margin on pathology LUTS: No new LUTS Other symptoms: LABS: Hematocrit (%) Date Value 08/09/2021 49.6 06/24/2019 48.5 10/10/2018 46.1 06/22/2018 50.1 HCT (%) Date Value 01/13/2019 49.1 PSA (ng/mL) Date Value 08/14/2022 0.21 02/12/2022 0.14 03/02/2019 0.05 10/10/2018 0.04 02/23/2018 0.03 08/27/2017 <0.03 PSA Screening (ng/mL) Date Value 08/09/2021 0.13 No results found for: TESTOST MEDICATIONS: clopidogrel (PLAVIX) 75 mg tablet Take 1 tablet by mouth once daily. atorvastatin (LIPITOR) 20 mg tablet Take 1 tablet by mouth once daily. losartan (COZAAR) 25 mg tablet Take 0.5 tablets by mouth once daily. pantoprazole DR (PROTONIX) 20 mg tablet TAKE 1 TABLET DAILY BEFORE BREAKFAST. TAKE ON AN EMPTYSTOMACH, 1/2 HOUR BEFORE A MEAL. albuterol sulfate (PROAIR HFA INHALATION) Inhale as instructed as needed. NUCALA 100 mg/mL injection Inject 100 mg subcutaneously every 4 weeks. montelukast (SINGULAIR) 10 mg tablet Take 1 tablet by mouth daily at bedtime. NITROGLYCERIN SUBLINGUAL Dissolve under the tongue as needed. CPAP aspirin 81 mg chewable tablet Take 81 mg by mouth once daily. fluticasone-vilanterol (BREO ELLIPTA) 200-25 mcg/dose inhaler Breo Ellipta 200 mcg-25 mcg/dose powder for inhalation (Patient not taking: Reported on 08/16/2022) fluticasone (FLONASE) 50 mcg/actuation nasal spray Use 2 Sprays in each nostril once daily. Rinse mouth after use. (Patient not taking: Reported on 08/16/2022) albuterol HFA (VENTOLIN HFA) 90 mcg/actuation inhaler Inhale 2 Puffs as instructed every 4 hours as needed. PAST MEDICAL HISTORY: PAST MEDICAL HISTORY Diagnosis Date Anxiety Asthma Childhood. 10/2017 bronchoscopy/biopsy with inflammation, eosinophils. CAD (coronary artery disease) s/p SHANIQUA to LAD, seeing Dr. Llanos Depression Diaphragmatic hernia without mention of obstruction or gangrene Dyslipidemia Dysphagia Dyspnea With wheezing. Spirometry w/o obstruction 02/01 and 06/03. Has seen Dr. Pearl Esophagitis, unspecified Essential hypertension GERD (gastroesophageal reflux disease) History of CVA (cerebrovascular accident) 06/20/2014 mild Obesity (BMI 30.0-34.9) LESLY (obstructive sleep apnea) Consistently compliant with CPAP. PFO (patent foramen ovale) Prostate cancer (HCC) 2012 s/p prostatectomy, [place] PAST SURGICAL HISTORY: PAST SURGICAL HISTORY Procedure Laterality Date ESOPHAGOGASTRODUODENOSCOPY TRANSORAL DIAGNOSTIC 05/01/2007 EGD ESOPHAGOGASTRODUODENOSCOPY TRANSORAL DIAGNOSTIC 03/21/2013 [facility] EGD PAST SURGICAL HISTORY OF submandibular gland removed PAST SURGICAL HISTORY OF 10/31/14 Robotic Prostatectomy PAST SURGICAL HISTORY OF 04/2017 SHANIQUA to LAD PAST SURGICAL HISTORY OF 06/2017 sinus surgery FAMILY HISTORY: FAMILY HISTORY Problem Relation Age of Onset Heart Mother CAD. Hypertension Mother Cancer Father Prostate cancer. other (Other) Father Lower lobectomy, not cancerous. No Known Problems Sister No Known Problems Sister No Known Problems Sister No Known Problems Sister Cancer Paternal Grandfather Prostate Cancer. other (Other) Other No allergy, asthma, COPD. SOCIAL HISTORY: Social Connections: Not on file REVIEW OF SYSTEMS: GENERAL: No fever, chills, weight loss, or fatigue. All other systems reviewed and are negative PHYSICAL EXAMINATION: Blood pressure 110/84, pulse 82, temperature 36.7 ?C (98 ?F), temperature source Temporal, resp. rate 20, height 185.4 cm (6' 1 ), weight 106.1 kg (234 lb), SpO2 97 %. GENERAL: WNL nutrition, no deformities, healthy appearing PROBLEM LIST REVIEW: Yes LABS: Results for orders placed or performed in visit on 08/16/22 UA DIP, URINE (POC) Result Value Ref Range GLUCOSE UA (POCT) Negative Negative mg/dL BILIRUBIN U (more content not included)... [facility] 08-16-2022 Note HNO ID: [id number] Author: Vickie Jones LPN Service: ? Author Type: ? Type: Progress Notes Filed: 08/16/2022 2:15 PM Note Text: Verified name and date of . CC Post Void Residual HPI: Maci Redman is a 67 year old male. The patient is here now for an appointment with SHIV Santiago, ELY, MARIANA. Procedure: Explained procedure to patient and verbalizes understanding. Performed a PVR. Patient urinated and instructed to empty bladder as much as possible just prior to having PVR done using bladder ultrasound scanner. Results of scan: 0 mL The patient tolerated the procedure well. Plan: Appointment with Ovi. [facility] 08-16-2022 Instructions Ovi Peraza PA-C - 08/16/2022 8:37 AM EST > PSA in 2 months to check doubling time, if 0.4 or higher will recommend a MRI and Bone Scan documented in this encounter [facility] 08-16-2022 History of Presen t illness Narrative Images from the original note were not included. ON LICENSE OF [facility] ESTABLISHED PATIENT CLINIC NOTE Some elements copied from his previous note, which have been updated where appropriate, and all reflect current medical decision making from date of this visit. SERVICE DATE: 08/16/2022 SERVICE TIME: 8:34 AM NAME: Maci Redman CHIEF COMPLAINT: Follow up PSA HISTORY OF PRESENT ILLNESS: Maci Redman is a 67 year old Male with PMH including Prostate Cancer presenting with PSA for follow-up he has a history of Prostate Cancer and s/p RP 10/31/2014, doing very well with still undetectable PSA PSA today 0.13, we discussed if PSA is -0.2 or higher I will get a PSA in 2 months for doubling time In fact his PSA this time is 0.21 and I have ordered the PSA to be done in Sep 2022 if it reaches > 0.4 we discussed Having him see Radiology Oncology for Consult on IMRT if this is a biochemical recurrence He did have a focally positive margin on pathology LUTS: No new LUTS Other symptoms: LABS: Hematocrit (%) Date Value 08/09/2021 49.6 06/24/2019 48.5 10/10/2018 46.1 06/22/2018 50.1 HCT (%) Date Value 01/13/2019 49.1 PSA (ng/mL) Date Value 08/14/2022 0.21 02/12/2022 0.14 03/02/2019 0.05 10/10/2018 0.04 02/23/2018 0.03 08/27/2017 <0.03 PSA Screening (ng/mL) Date Value 08/09/2021 0.13 No results found for: TESTOST MEDICATIONS: clopidogrel (PLAVIX) 75 mg tablet Take 1 tablet by mouth once daily. atorvastatin (LIPITOR) 20 mg tablet Take 1 tablet by mouth once daily. losartan (COZAAR) 25 mg tablet Take 0.5 tablets by mouth once daily. pantoprazole DR (PROTONIX) 20 mg tablet TAKE 1 TABLET DAILY BEFORE BREAKFAST. TAKE ON AN EMPTYSTOMACH, 1/2 HOUR BEFORE A MEAL. albuterol sulfate (PROAIR HFA INHALATION) Inhale as instructed as needed. NUCALA 100 mg/mL injection Inject 100 mg subcutaneously every 4 weeks. montelukast (SINGULAIR) 10 mg tablet Take 1 tablet by mouth daily at bedtime. NITROGLYCERIN SUBLINGUAL Dissolve under the tongue as needed. CPAP aspirin 81 mg chewable tablet Take 81 mg by mouth once daily. fluticasone-vilanterol (BREO ELLIPTA) 200-25 mcg/dose inhaler Breo Ellipta 200 mcg-25 mcg/dose powder for inhalation (Patient not taking: Reported on 08/16/2022) fluticasone (FLONASE) 50 mcg/actuation nasal spray Use 2 Sprays in each nostril once daily. Rinse mouth after use. (Patient not taking: Reported on 08/16/2022) albuterol HFA (VENTOLIN HFA) 90 mcg/actuation inhaler Inhale 2 Puffs as instructed every 4 hours as needed. PAST MEDICAL HISTORY: PAST MEDICAL HISTORY Diagnosis Date Anxiety Asthma Childhood. 10/2017 bronchoscopy/biopsy with inflammation, eosinophils. CAD (coronary artery disease) s/p SHANIQUA to LAD, seeing Dr. Llanos Depression Diaphragmatic hernia without mention of obstruction or gangrene Dyslipidemia Dysphagia Dyspnea With wheezing. Spirometry w/o obstruction 02/01 and 06/03. Has seen Dr. Pearl Esophagitis, unspecified Essential hypertension GERD (gastroesophageal reflux disease) History of CVA (cerebrovascular accident) 06/20/2014 mild Obesity (BMI 30.0-34.9) LESLY (obstructive sleep apnea) Consistently compliant with CPAP. PFO (patent foramen ovale) Prostate cancer (HCC) 2012 s/p prostatectomy, [place] PAST SURGICAL HISTORY: PAST SURGICAL HISTORY Procedure Laterality Date ESOPHAGOGASTRODUODENOSCOPY TRANSORAL DIAGNOSTIC 05/01/2007 EGD ESOPHAGOGASTRODUODENOSCOPY TRANSORAL DIAGNOSTIC 03/21/2013 [facility] EGD PAST SURGICAL HISTORY OF submandibular gland removed PAST SURGICAL HISTORY OF 10/31/14 Robotic Prostatectomy PAST SURGICAL HISTORY OF 04/2017 SHANIQUA to LAD PAST SURGICAL HISTORY OF 06/2017 sinus surgery FAMILY HISTORY: FAMILY HISTORY Problem Relation Age of Onset Heart Mother CAD. Hypertension Mother Cancer Father Prostate cancer. other (Other) Father Lower lobectomy, not cancerous. No Known Problems Sister No Known Problems Sister No Known Problems Sister No Known Problems Sister Cancer Paternal Grandfather Prostate Cancer. other (Other) Other No allergy, asthma, COPD. SOCIAL HISTORY: Social Connections: Not on file REVIEW OF SYSTEMS: GENERAL: No fever, chills, weight loss, or fatigue. All other systems reviewed and are negative PHYSICAL EXAMINATION: Blood pressure 110/84, pulse 82, temperature 36.7 C (98 F), temperature source Temporal, resp. rate 20, height 185.4 cm (6' 1 ), weight 106.1 kg (234 lb), SpO2 97 %. GENERAL: WNL nutrition, no deformities, healthy appearing PROBLEM LIST REVIEW: Yes LABS: Results for orders placed or performed in visit on 08/16/22 UA DIP, URINE (POC) Result Value Ref Range GLUCOSE UA (POCT) Negative Negative mg/dL BILIRUBIN UA (POCT) Negative Negative KETONE UA (POCT) Trace Negative mg/dL SPECIFIC GRAVITY UA (POCT) 1.025 1.005 - 1.030 HEMOGLOBIN/BLOOD UA (POCT) Negative Negative PH UA (POCT) 5.5 4.5 - 8.0 PROTEIN UA (POCT) Negative Negative mg/dL UROBILINOGEN UA (POCT) 1.0 Normal E.U./dL NITRITE UA (POCT) Negative Negative LEUKOCYTES UA (POCT) Negative Negative COLOR UA (POCT) Dark yellow CLARITY UA (POCT) Clear PROCEDURES: PVR: 0 ml IMAGING: IMPRESSION/PLAN: 67 year old male with . 1. Personal history of prostate cancer - ICD9: V10.46, ICD10: Z85.46 > Increasing PSA - slow but now 0.21 > PSA for Sep 2022 for doubling time > If > 0.4 then I recommend Radiology Oncology Consult and MRI NM Bone Scan as well SHIV Santiago MT, PA-C Verified name and date of . CC Post Void Residual HPI: Maci Redman is a 67 year old male. The patient is here now for an appointment with SHIV Santiago MT, PA-COV. Procedure: Explained procedure to patient and verbalizes understanding. Performed a PVR. Patient urinated and instructed to empty bladder as much as possible just prior to having PVR done using bladder ultrasound scanner. Results of scan: 0 mL The patient tolerated the procedure well. Plan: Appointment with Ovi. documented in this encounter [facility] 12-25-2021 Miscellaneous Notes Patient has been identified by name and date of : Yes Patient phones for refill(s): Pending Prescriptions Disp Refills CLOPIDOGREL 75 MG TABLET 90 tablet 1 Sig: Take 1 tablet by mouth once daily. KARY: No Date of last office visit in primary care: 08/09/21 Last 2 Encounter Wt Readings: Date: Wt: 08/14/2021 107.3 kg (236 lb 9.6 oz) 08/09/2021 107.5 kg (237 lb) Previous labs/tests for medication: Not applicable Please advise. Thank you. Randa Uribe LPN documented in this encounter [facility] 11-13-2021 Miscellaneous Notes CAROLANN 08/09/21 NOV no upcoming appt Patient has been identified by name and date of : Yes Pending Prescriptions Disp Refills PANTOPRAZOLE 20 MG TABLET,DELAYED RELEASE 90 tablet 1 Sig: TAKE 1 TABLET DAILY BEFORE BREAKFAST. TAKE ON AN EMPTYSTOMACH, 1/2 HOUR BEFORE A MEAL. KARY: No LOSARTAN 25 MG TABLET 45 tablet 1 Sig: Take 0.5 tablets by mouth once daily. KARY: No ATORVASTATIN 20 MG TABLET 90 tablet 1 Sig: Take 1 tablet by mouth once daily. KARY: No RX INSTRUCTIONS: Patient aware RX escripted to mail away pharmacy. No need to notify patient. Shellie Bah documented in this encounter [facility] documented as of this encounter (statuses as of 11/14/2021) [facility] History of Past illness Narrative* Problem Noted Date Resolved Date Cough 09/08/2017 12/10/2017 Wheezing 09/08/2017 12/10/2017 Sleep apnea 12/14/2014 06/02/2017 Chronic anticoagulation 08/09/2014 09/10/19 18 Other and unspecified hyperlipidemia 01/19/2008 12/10/2017 Last Assessment & Plan: Continues with lipid management of pravastatin 10mg daily without concern. No myalgias or muscle cramping. Repeat labs reviewed from 2010; repeat requested. LESLY (obstructive sleep apnea) Overview: On CPAP Depression 12/11/2018 documented as of this encounter (statuses as of 12/25/2021) [facility] History of Past illness Narrative* Problem Noted Date Resolved Date Cough 09/08/2017 12/10/2017 Wheezing 09/08/2017 12/10/2017 Sleep apnea 12/14/2014 06/02/2017 Chronic anticoagulation 08/09/2014 09/10/19 18 Other and unspecified hyperlipidemia 01/19/2008 12/10/2017 Last Assessment & Plan: Continues with lipid management of pravastatin 10mg daily without concern. No myalgias or muscle cramping. Repeat labs reviewed from 2010; repeat requested. LESLY (obstructive sleep apnea) Overview: On CPAP Depression 12/11/2018 documented as of this encounter (statuses as of 08/21/2022) [facility] History of Past illness Narrative* Problem Noted Date Resolved Date Cough 09/08/2017 12/10/2017 Wheezing 09/08/2017 12/10/2017 Sleep apnea 12/14/2014 06/02/2017 Chronic anticoagulation 08/09/2014 09/10/19 18 Other and unspecified hyperlipidemia 01/19/2008 12/10/2017 Last Assessment & Plan: Continues with lipid management of pravastatin 10mg daily without concern. No myalgias or muscle cramping. Repeat labs reviewed from 2010; repeat requested. LESLY (obstructive sleep apnea) Overview: On CPAP Depression 12/11/2018 documented as of this encounter (statuses as of 08/23/2022) [facility] History of Past illness Narrative* Problem Noted Date Resolved Date Cough 09/08/2017 12/10/2017 Wheezing 09/08/2017 12/10/2017 Sleep apnea 12/14/2014 06/02/2017 Chronic anticoagulation 08/09/2014 09/10/19 18 Other and unspecified hyperlipidemia 01/19/2008 12/10/2017 Last Assessment & Plan: Continues with lipid management of pravastatin 10mg daily without concern. No myalgias or muscle cramping. Repeat labs reviewed from 2010; repeat requested. LESLY (obstructive sleep apnea) Overview: On CPAP Depression 12/11/2018 documented as of this encounter (statuses as of 09/03/2022) [facility] History of Past illness Narrative* Problem Noted Date Resolved Date Cough 09/08/2017 12/10/2017 Wheezing 09/08/2017 12/10/2017 Sleep apnea 12/14/2014 06/02/2017 Chronic anticoagulation 08/09/2014 09/10/19 18 Other and unspecified hyperlipidemia 01/19/2008 12/10/2017 Last Assessment & Plan: Continues with lipid management of pravastatin 10mg daily without concern. No myalgias or muscle cramping. Repeat labs reviewed from 2010; repeat requested. LESLY (obstructive sleep apnea) Overview: On CPAP Depression 12/11/2018 documented as of this encounter (statuses as of 12/16/2022) [facility] History of Past illness Narrative* Problem Noted Date Resolved Date Cough 09/08/2017 12/10/2017 Wheezing 09/08/2017 12/10/2017 Sleep apnea 12/14/2014 06/02/2017 Chronic anticoagulation 08/09/2014 09/10/19 18 Prostate cancer 05/26/2013 02/19/2023 Other and unspecified hyperlipidemia 01/19/2008 12/10/2017 Last Assessment & Plan: Continues with lipid management of pravastatin 10mg daily without concern. No myalgias or muscle cramping. Repeat labs reviewed from 2010; repeat requested. LESLY (obstructive sleep apnea) Overview: On CPAP Depression 12/11/2018 documented as of this encounter (statuses as of 02/19/2023) [facility] History of Past illness Narrative* Problem Noted Date Resolved Date Cough 09/08/2017 12/10/2017 Wheezing 09/08/2017 12/10/2017 Sleep apnea 12/14/2014 06/02/2017 Chronic anticoagulation 08/09/2014 09/10/19 Prostate cancer 05/26/2013 02/19/2023 Other and unspecified hyperlipidemia 01/19/2008 12/10/2017 Last Assessment & Plan: Continues with lipid management of pravastatin 10mg daily without concern. No myalgias or muscle cramping. Repeat labs reviewed from 2010; repeat requested. LESLY (obstructive sleep apnea) Overview: On CPAP Depression 12/11/2018 documented as of this encounter (statuses as of 02/20/2023) [facility] History of Past illness Narrative* Problem Noted Date Diagnosed Date Resolved Date Cough 09/08/2017 12/10/2017 Wheezing 09/08/2017 12/10/2017 Sleep apnea 12/14/2014 06/02/2017 Chronic anticoagulation 08/09/201408/19 Prostate cancer 05/26/2013 02/19/2023 Other and unspecified hyperlipidemia 01/19/2008 12/10/2017 Last Assessment & Plan: Continues with lipid management of pravastatin 10mg daily without concern. No myalgias or muscle cramping. Repeat labs reviewed from 2010; repeat requested. LESLY (obstructive sleep apnea) 06/02/2017 Overview: On CPAP Depression 12/11/2018 documented as of this encounter (statuses as of 06/27/2023) [facility] Personal history of prostate cancer- Primary Personal history of malignant neoplasm of prostate [facility] Diagnosis Essential hypertension- Primary Unspecified essential hypertension Coronary artery disease involving mentasta heart without angina pectoris, unspecified vessel or lesion type SOB (shortness of breath) Shortness of breath Severe persistent asthma, uncomplicated Unspecified asthma LESLY on CPAP Obstructive sleep apnea (adult) (pediatric) History of CVA (cerebrovascular accident) Transient ischemic attack (TIA), and cerebral infarction without residual deficits Prostate cancer (HCC) Malignant neoplasm of prostate Elevated prostate specific antigen (PSA) Gastroesophageal reflux disease, unspecified whether esophagitis present Screening for colon cancer Special screening for malignant neoplasms, colon Anxiety with depression [facility] Diagnosis Severe persistent asthma, uncomplicated- Primary Unspecified asthma SOB (shortness of breath) Shortness of breath Coronary artery disease involving mentasta heart without angina pectoris, unspecified vessel or lesion type Essential hypertension Unspecified essential hypertension Hyperlipidemia, unspecified hyperlipidemia type LESLY on CPAP Obstructive sleep apnea (adult) (pediatric) History of CVA (cerebrovascular accident) Transient ischemic attack (TIA), and cerebral infarction without residual deficits Elevated prostate specific antigen (PSA) Sensation of fullness in both ears S/P prostatectomy Other postprocedural status History of prostate cancer Personal history of malignant neoplasm of prostate Chronic bronchitis, unspecified chronic bronchitis type (HCC) [facility]* Diagnosis Hyperlipidemia, unspecified hyperlipidemia type- Primary documented in this encounter [facility] Summary Purpose Family History No Family History Records FoundNo Family History Records Found Advance Directives No Advanced Directives Records FoundDocuments on File Type Date 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 Advance Directive(s) 11/10/2017 10:50 AM Additional Source Comments (unrecognized sect ion and content) No Status Records FoundNo Status Records Found INFORMATION SOURCE (unrecogn ized section and content) DATE CREATED AUTHOR AUTHOR'S ORGANIZ ATION 07/03/2023 [facility] Source Comments (unrecognize d section and content) In the event this informatio n is protected by the Federal Confidentiality of Alcohol and Drug Abuse Patient Records regulations: The Federal rules restrict any use of the information to criminally investigate or prosecute any alcohol or drug abuse patient.[facility] the event this information is protected by the Federal Confidentiality of Alcohol and Drug Abuse Patient Records regulations: The Federal rules restrict any use of the information to criminally investigate or prosecute any alcohol or drug abuse patient.[facility] the event this information is protected by the Federal Confidentiality of Alcohol and Drug Abuse Patient Records regulations: The Federal rules restrict any use of the information to criminally investigate or prosecute any alcohol or drug abuse patient.[facility] the event this information is protected by the Federal Confidentiality of Alcohol and Drug Abuse Patient Records regulations: The Federal rules restrict any use of the information to criminally investigate or prosecute any alcohol or drug abuse patient.[facility] the event this information is protected by the Federal Confidentiality of Alcohol and Drug Abuse Patient Records regulations: The Federal rules restrict any use of the information to criminally investigate or prosecute any alcohol or drug abuse patient.[facility] the event this information is protected by the Federal Confidentiality of Alcohol and Drug Abuse Patient Records regulations: The Federal rules restrict any use of the information to criminally investigate or prosecute any alcohol or drug abuse patient.[facility] the event this information is protected by the Federal Confidentiality of Alcohol and Drug Abuse Patient Records regulations: The Federal rules restrict any use of the information to criminally investigate or prosecute any alcohol or drug abuse patient.[facility] the event this information is protected by the Federal Confidentiality of Alcohol and Drug Abuse Patient Records regulations: The Federal rules restrict any use of the information to criminally investigate or prosecute any alcohol or drug abuse patient.[facility] the event this information is protected by the Federal Confidentiality of Alcohol and Drug Abuse Patient Records regulations: The Federal rules restrict any use of the information to criminally investigate or prosecute any alcohol or drug abuse patient.[facility] Reason for Visit (unrecogniz ed section and content) Reason Onset Date Comments Refill Request 12/25/2021 Reason Comments Follow Up Specialty Diagnoses / Procedures Referred By Chato da silva Referred To Contact Urology Diagnoses Personal history of prostate cancer Procedures CONSULT TO UROLOGY NEW PATIENT VISIT LEVEL 5 Vilma Snow MD [address] [place] [address] Referral ID Status Reason Start Date Expiration Date V isits Requested Visits Authorized [id number] Closed PCP Requested Referral 08/09/2021 08/09/2022 1 1 Reason Onset Date Comments Refill Request 08/21/2022 Refill Request 09/03/2022 Reason Onset Date Comments Refill Request 12/16/2022 Reason Comments Results Reason Onset Date Comments Refill Request 06/26/2023 Care Teams (unrecognized sec tion and content) Batch Blender Relationship Specialty Start Date End Date Vilma Snow MD [address] [place] [address] PCP - General Family Practice 12/06/16 Batch Blender Relationship Specialty Start Date End Date Vilma Snow MD [address] [place] [address] PCP - General Family Medicine 12/06/16 Batch Blender Relationship Specialty Start Date End Date Vilma Snow MD [address] [place] [address] PCP - General Family Medicine 12/06/16 Batch Blender Relationship Specialty Start Date End Date Vilma Snow MD [facility] [place] [address] PCP - General Family Medicine 12/06/16 Batch Blender Relationship Specialty Start Date End Date Vilma Snow MD [address] [place] [id number] PCP - General Family Medicine 12/06/16 Batch Blender Relationship Specialty Start Date End Date Vilma Snow MD [address] [place] [id number] PCP - General Family Medicine 12/06/16 Batch Blender Relationship Specialty Start Date End Date Vilma Snow MD [address] [place] [address] PCP - General Family Medicine 12/06/16 Batch Blender Relationship Specialty Start Date End Date Vilma Snow MD [address] [place] [address] PCP - General Family Medicine 12/06/16 FOR RECORDS PERTAINING TO PATIENTS WHO ARE OR HAVE BEEN ENROLLED IN A CHEMICAL DEPENDENCY/SUBSTANCEABUSE PROGRAM, SOME INFORMATION MAY BE OMITTED. This clinical summary was aggregated from multiple sources. Caution should be exercised in using it in the provision of clinical care. This summary normalizes information from multiple sources, and as a consequence, information in this document may materially change the coding, format and clinical context of patient data. In addition, data may be omitted in some cases. CLINICAL DECISIONS SHOULD BE BASED ON THE PRIMARY CLINICAL RECORDS. [facility] [employer] [facility] provides no warranty or guarantee of the accuracy or completeness of information in this document.
== END 2023-08-29 10:48 | disposition home or self-care (01) ==
LOC: MEDOUTP 10:48
PROVIDERS: PCP Family Medicine; Referring Provider Nurse Practitioner Acute Care; Visit Provider Nurse Practitioner Acute Care
DX: J45.50 Severe persistent asthma, uncomplicated (principal)
CPT/HCPCS: 96372; J2182

== ENCOUNTER → 2023-09-05 | Outpatient (CLI) | payer MEDICARE, SELFPAY ==
[2017-05-16 09:58] VITALS: BMI 30.9
--- OUTSIDE RECORDS SUMMARY | 2023-09-05 06:01 | XMS RPT_ITS | CCD ---
Author Name Unknown Address [address] [place] [address] Organization [facility] Care Team Providers Care Neck Pinner Name Role Phone YOUSUF JEWELL Unavailable Unavailable YOUSUF JEWELL Unavailable Unavailable YOUSUF JEWELL Unavailable Unavailable Vilma Snow MD Primary Care Provider Vilma Snow MD Primary Care Provider VILMA SNOW Referring Unavailab VILMA Asencio Primary Care Unavailab VILMA Asencio Attending Unavailab VILMA Asencio Primary Care Unavailab OVI Nuñez Attending Unavailable VILMA SNOW Referring Unavailab VILMA Asencio Primary [...] sources) chlorzoxazone; Translations: [CHLORZOXAZONE] Drug Allergy 03-11-2006 [facility] Repository Medications Current Medications Medication Drug Class(es) Dates Sig (Normalized) Sig (Original) atorvastatin 40 mg oral tablet (15 sources) HMG-CoA Reductase Inhibitor Start: 02-20-2023 End: 08-19-2023 take 1 tablet by mouth once daily atorvastatin (LIPITOR) 40 mg tablet Take 1 tablet by mouth once daily. 90 tablet 1 02/20/2023 08/19/2023 Active Completed/Discontinued Medications Medication Drug Class(es) Dates Sig (Normalized) Sig (Original) [id number] 200 actuat albuterol 0.09 mg/actuat metered dose [...] Coronary arteriosclerosis; Translations: [Atherosclerotic heart disease of [place] coronary artery without angina pectoris] Onset: 7 [...] 95 % Vilma Snow MD Work Phone: [facility] 08-22-2022 09:39-0500 Body weight 107.41 kg Vilma Snow MD Work Phone: [facility] 08-22-2022 09:39-0500 Diastolic blood pressure 70 mm[Hg] Vilma Snow MD Work Phone: [facility] 08-22-2022 09:39-0500 Heart rate 63 /min Vilma Snow MD Work Phone: [facility] 08-22-2022 09:39-0500 Respiratory rate 16 /min Vilma Snow MD Work Phone: [facility] 08-22-2022 09:39-0500 SaO2% (BldA) [Mass fraction] 97 % Vilma Snow MD Work Phone: [facility] 08-22-2022 09:39-0500 Systolic blood pressure 106 mm[Hg] Vilma Snow MD Work Phone: [facility] 08-16-2022 08:08-0500 Body height 185.4 cm Ovi Peraza PA-C Work Phone: [facility] 08-16-2022 08:08-0500 Body temperature 98.01 [degF] Ovi Peraza PA-C Work Phone: [facility] 08-16-2022 08:08-0500 Body weight 106.14 kg Ovi Peraza PA-C Work Phone: [facility] 08-16-2022 08:08-0500 Diastolic blood pressure 84 mm[Hg] Ovi Peraza PA-C Work Phone: [facility] 08-16-2022 08:08-0500 Heart rate 82 /min Ovi Peraza PA-C Work Phone: [facility] 08-16-2022 08:08-0500 Respiratory rate 20 /min Ovi Peraza PA-C Work Phone: [facility] 08-16-2022 08:08-0500 SaO2% (BldA) [Mass fraction] 97 % Ovi Peraza PA-C Work Phone: [facility] 08-16-2022 08:08-0500 Systolic blood pressure 110 mm[Hg] Ovi Peraza PA-C Work Phone: [facility] Encounters Encounter Date Encounter Type Care Provider Facility Start: 07-02-2023 End: 07-03-2023 ambulatory VILMA SNOW Facility:[facility] Start: 06-26-2023 Refill Oliva Podlogar SEASONAL DELIVERY DRIVER.RECORD PRODUCER Work Phone: [facility] Procedures Date Procedure Procedure Detail Performing Clinician Start: 02-19-2023 H/O: surgery S/P prostatectomy Aram Snow MD Work Phone: Start: 02-19-2023 Lipid 1996 panel - S patricia or Plasma Oliva Podlogar SEASONAL DELIVERY DRIVER.RECORD PRODUCER Work Phone: Start: 08-16-2022 Urnls dip stick/tabl et rgnt auto w/o microscopy Ovi Peraza PA-C Work Phone: Start: 02-02-2021 Adult depression screening assessment Vilma Snow MD Work Phone: Plan of Treatment Date Care Activity Detail Author Start: 02-20-2028 Lipid 1996 panel - S patricia or Plasma Lipid Screening [facility] Start: 02-20-2028 LIPID SCREEN LIPID SCREEN [facility] Start: 12-11-2027 Urine microalbumin profile [facility] Start: 10-14-2027 PROSTATE CANCER SCRE ENING DISCUSSION PROSTATE CANCER SCREENING DISCUSSION [facility] Start: 08-14-2027 PROSTATE CANCER SCRE ENING DISCUSSION PROSTATE CANCER SCREENING DISCUSSION [facility] Start: 08-09-2026 PROSTATE CANCER SCRE ENING DISCUSSION PROSTATE CANCER SCREENING DISCUSSION [facility] Start: 02-19-2026 DIABETES SCREEN DIABETES SCREEN [facility] Start: 02-19-2026 Diabetes Screening Diabetes Screenin g [facility] Start: 02-02-2026 LIPID SCREEN LIPID SCREEN [facility] Start: 08-22-2025 DIABETES SCREEN DIABETES SCREEN [facility] Start: 08-09-2024 DIABETES SCREEN DIABETES SCREEN [facility] Start: 07-05-2024 ANNUAL PCP TEAM AMERICAN SIGN LANGUAGE TEACHER GUY DISEASE VISIT ANNUAL PCP TEAM CHRONIC DISEASE VISIT [facility] Start: 02-20-2024 BP CONTROLLED (<130/80) BP CONTROLLE D (<130/80) [facility] Start: 02-20-2024 Hepatitis B surface antibody level LDL CHOLESTEROL [facility] Start: 08-23-2023 COLORECTAL CANCER SCREENING COLORECTAL CANCER SCREENING [facility] Start: 08-23-2023 FECAL OCCULT BLOOD FECAL OCCULT BLOO D [facility] Start: 08-22-2023 ANNUAL PCP TEAM AMERICAN SIGN LANGUAGE TEACHER GUY DISEASE VISIT ANNUAL PCP TEAM CHRONIC DISEASE VISIT [facility] Start: 08-22-2023 BP CONTROLLED (<130/80) BP CONTROLLE D (<130/80) [facility] Start: 08-22-2023 SHINGRIX VACCINE (1 of 2) HERNANDEZ GRIX VACCINE (1 of 2) [facility] Immunizations Immunization Date Immunization Notes Care Provider Miguelangel alvarado 05-18-2021 influenza, high dose seasonal, preservative-free Vilma Snow MD Work Phone: [facility] 05-18-2021 influenza virus vaccine, unspecified formulation Oliva Wong SEASONAL DELIVERY DRIVER.RECORD PRODUCER Work Phone: [facility] 10-24-2020 COVID-19 vaccine, ag e 12+ yr (PFIZER-BIONTECH - PURPLE TOP) Vilma Snow MD Work Phone: [facility] 10-04-2020 COVID-19 vaccine, ag e 12+ yr (PFIZER-BIONTECH - PURPLE TOP) Vilma Snow MD Work Phone: [facility] 06-21-2019 influenza, high dose seasonal, preservative-free Vilma Snow MD Work Phone: [facility] 06-21-2019 pneumococcal polysaccharide vaccine, 23 valent Vilma Snow MD Work Phone: [facility] 06-12-2018 influenza, injectabl e, quadrivalent, contains preservative Vilma Snow MD Work Phone: [facility] 12-10-2017 tetanus and diphther ia toxoids, adsorbed, preservative free, for adult use (5 Lf of tetanus toxoid and 2 Lf of diphtheria toxoid) Vilma Snow MD Work Phone: [facility] 09-26-2017 pneumococcal conjuga te vaccine, 13 valent Vilma Snow MD Work Phone: [facility] 05-31-2016 influenza, injectabl e, quadrivalent, contains preservative Vilma Snow MD Work Phone: [facility] 07-25-2015 influenza, injectabl e, quadrivalent, contains preservative Vilma Snow MD Work Phone: [facility] 05-27-2014 influenza, seasonal, injectable Vilma Snow MD Work Phone: [facility] 03-03-2007 tetanus toxoid, redu greg diphtheria toxoid, and acellular pertussis vaccine, adsorbed Vimla Snow MD Work Phone: [facility] Work Phone: 11-20-1993 diphtheria and tetan us toxoids, adsorbed for pediatric use Vilma Snow MD Work Phone: [facility] Work Phone: Payers Date Payer Category Payer Medicare AETNA MEDICARE A ETNA MEDICARE PPO [id number] 2021-Present [phone] [address] [place] [address] [facility] [id number] 2021 Medicare [id number] 2021 Medicare AETNA MEDICARE A ETNA MEDICARE PPO [id number] 2021-Present [phone] [address] [place] [address] PPO [id number] Social History Date Type Detail Facility Start: 03-23-2012 End: 08-22-2022 Tobacco smoking status NHIS Ex-smoker [facility] Work Phone: End: 08-18-1989 History of tobacco use Current smoker [facility] Work Phone: End: 08-18-1989 History of tobacco use Cigarette Smoker [facility] Work Phone: Start: 03-23-2012 End: 02-19-2023 Cigarettes smoked current (pack per day) - Reported 1 [facility] Start: 03-23-2012 End: 08-22-2022 Tobacco use and exposure Former smokeless tobacco user [facility] Work Phone: End: 01-16-2017 History of tobacco use Snuff User [facility] Work Phone: Start: 08-14-2021 End: 02-19-2023 Alcohol intake Current drinker of alcohol (finding) [facility] Start: 12-14-2019 History SDOH Alcohol Frequency 2 [facility] Start: 12-14-2019 History SDOH Alcohol Std Drinks 1 [facility] Start: 03-23-2012 History SDOH Alcohol Comment rare-beer [facility] Start: 12-14-2019 History SDOH Social Connections Phone 5 [facility] Start: 12-14-2019 History SDOH Social Connections Get Together 4 [facility] Start: 12-14-2019 History SDOH Social Connections Latter-Day 3 [facility] Start: 12-14-2019 Education 12 [facility] Start: 1955 Sex Assigned At Male [facility] Start: 12-14-2019 End: 02-19-2023 Social connection and isolation panel [facility] Do you belong to any clubs or organizations such as religion groups, unions, fraternal or athletic groups, or school groups? Yes [facility] Are you now , , , , never or living with a partner? [facility] How often to you hav e a drink containing alcohol? Monthly or less [facility] How many standard dr inks containing alcohol do you have on a typical day? 1 or 2 [facility] How often do you hav e 6 or more drinks on 1 occasion? Never [facility] How hard is it for y ou to pay for the very basics like food, housing, medical care, and heating Not hard at all [facility] (I/We) worried milton (my/our) food would run out before (I/we) got money to buy more. Never true [facility] Start: 02-02-2021 Gender identity Identifies as male gender (finding) [facility] Clinical Notes 09-08-2017 to 06-26-2023 Telephone Encounter - Jennifer Pena Ma - 06/26/2023 2:12 PM ESTTelephone Encounter - Viridiana Cruz LPN - 02/20/2023 10:45 AM EDTChkecia Snow MD - 02/19/2023 8:52 AM EDT Note Date & Type Note Facility 06-26-2023 Miscellaneous Notes Last office visit: 02/19/23 F/u scheduled: 08/22/23 Jennifer Pena Ma documented in this encounter [facility] 02-20-2023 Miscellaneous Notes Patient notified. Verbalized [...] will send rx. 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 documented in this encounter [facility] 02-19-2023 Note HNO ID: [id number] Author: Vilma Snow MD Service: ? Author Type: Physician Type: Progress Notes Filed: 02/19/2023 3:24 PM Note Text: Chief Complaint Patient presents with: Follow Up HPI Maci Redman is a 67 year old male who presents here today for Above Complaints. CAD s/p SHANIQUA to LAD: managed by [facility] Cardiology. No changes to regimen at [...] stroke prevention. Would like ears checked today. [place] full yesterday and treated with debrox drops. Improved today. Past medical history, appointments, medications, allergies reviewed. Previous Medical History PAST MEDICAL HISTORY Diagnosis Date Anxiety Asthma Childhood. 10/2017 bronchoscopy/biopsy with inflammation, eosinophils. CAD (coronary artery disease) s/p SHANIQUA to LAD, seeing Dr. Viet Feilz Diaphragmatic hernia without mention of obstruction or [...] DIAGNOSTIC 05/01/2007 EGD ESOPHAGOGASTRODUODENOSCOPY TRANSORAL DIAGNOSTIC 03/21/2013 [facility] EGD PAST SURGICAL HISTORY OF submandibular gland [...] No nausea, vomiting, (more content not included)... [facility] 02-19-2023 History of Presen t illness Narrative Chief Complaint Patient presents with: Follow Up HPI Maci Redman is a 67 year old male who presents here today for Above Complaints. CAD s/p SHANIQUA to LAD: managed by [facility] Cardiology. No changes to regimen at [...] stroke prevention. Would like ears checked today. [place] full yesterday and treated with debrox drops. [...] DIAGNOSTIC 05/01/2007 EGD ESOPHAGOGASTRODUODENOSCOPY TRANSORAL DIAGNOSTIC 03/21/2013 [facility] EGD PAST SURGICAL HISTORY OF submandibular gland [...] Abs Lymph 1.00 - 4.00 k/uL 1.73 Price% % 9.8 Abs Price <0.87 k/uL 0.65 Eosin% % 0.9 Abs [...] - Avoidance of triggers recommended - notify shellfish processing laborer of worsening symptoms. 2. SOB (shortness of breath) - ICD9: 786.05, ICD10: R06.02 See above 3. Coronary artery disease involving [place] heart without angina pectoris, unspecified vessel or [...] Vilma Snow MD documented in this encounter [facility] 12-16-2022 Miscellaneous Notes Patient has been [...] Pauly Flores MA documented in this encounter [facility] 08-22-2022 Note HNO ID: [id number] Author: Vilma Snow MD Service: ? Author [...] DIAGNOSTIC 05/01/2007 EGD ESOPHAGOGASTRODUODENOSCOPY TRANSORAL DIAGNOSTIC 03/21/2013 [facility] EGD PAST SURGICAL HISTORY OF submandibular gland [...] which is s (more content not included)... [facility] 08-22-2022 History of Presen t illness Narrative [...] DIAGNOSTIC 05/01/2007 EGD ESOPHAGOGASTRODUODENOSCOPY TRANSORAL DIAGNOSTIC 03/21/2013 [facility] EGD PAST SURGICAL HISTORY OF submandibular gland [...] Patient Allergies ALLERGIES Allergen Reactions Marlen[facility]ro [facility] [* Current Medications Current Outpatient Medications [...] BP <130/80 2. Coronary artery disease involving [place] heart without angina pectoris, unspecified vessel or lesion type - ICD9: 414.01, ICD10: I25.10 S/p SHANIQUA. On group home [facility]. Asymptomatic on medical management. No change [...] Vilma Snow MD documented in this encounter [facility] 08-21-2022 Miscellaneous Notes Patient has been [...] Genny Lawson LPN documented in this encounter [facility] 08-16-2022 Note HNO ID: [id number] Author: Ovi Peraza PA-C Service: ? Author Type: Physician Front Man Type: Progress Notes Filed: 08/16/2022 2:15 PM Note Text: [facility] ESTABLISHED PATIENT CLINIC NOTE [...] DIAGNOSTIC 05/01/2007 EGD ESOPHAGOGASTRODUODENOSCOPY TRANSORAL DIAGNOSTIC 03/21/2013 [facility] EGD PAST SURGICAL HISTORY OF submandibular gland [...] mg/dL BILIRUBIN U (more content not included)... [facility] 08-16-2022 Note HNO ID: [id number] Author: Vickie Jones LPN Service: ? Author [...] the procedure well. Plan: Appointment with Ovi. [facility] 08-16-2022 Instructions Ovi Peraza PA-C - 08/16/2022 8:37 AM EST > PSA in 2 months to check doubling time, if 0.4 or higher will recommend a MRI and Bone Scan documented in this encounter [facility] 08-16-2022 History of Presen t illness Narrative Images from the original note were not included. [facility] [...] DIAGNOSTIC 05/01/2007 EGD ESOPHAGOGASTRODUODENOSCOPY TRANSORAL DIAGNOSTIC 03/21/2013 [facility] EGD PAST SURGICAL HISTORY OF submandibular gland [...] Appointment with Ovi. documented in this encounter [facility] 12-25-2021 Miscellaneous Notes Patient has been [...] Randa Uribe LPN documented in this encounter [facility] 11-13-2021 Miscellaneous Notes CAROLANN 08/09/21 NOV [...] patient. Shellie Bah documented in this encounter [facility] documented as of this encounter (statuses as of 11/14/2021) [facility] History of Past illness Narrative* Problem [...] of this encounter (statuses as of 12/25/2021) [facility] History of Past illness Narrative* Problem [...] of this encounter (statuses as of 08/21/2022) [facility] History of Past illness Narrative* Problem [...] of this encounter (statuses as of 08/23/2022) [facility] History of Past illness Narrative* Problem [...] of this encounter (statuses as of 09/03/2022) [facility] History of Past illness Narrative* Problem [...] of this encounter (statuses as of 12/16/2022) [facility] History of Past illness Narrative* Problem [...] of this encounter (statuses as of 02/19/2023) [facility] of Past illness Narrative* Problem [...] of this encounter (statuses as of 02/20/2023) [facility] of Past illness Narrative* Problem [...] of this encounter (statuses as of 06/27/2023) [facility] Personal history of prostate cancer- Primary Personal history of malignant neoplasm of prostate [facility] Diagnosis Essential hypertension- Primary Unspecified essential hypertension Coronary artery disease involving [place] heart without angina pectoris, unspecified vessel or [...] Anxiety with depression [facility] Diagnosis Severe persistent asthma, uncomplicated- Primary Unspecified asthma SOB (shortness of breath) Shortness of breath Coronary artery disease involving [place] heart without angina pectoris, unspecified vessel or [...] bronchitis type (HCC) [facility] Diagnosis Hyperlipidemia, unspecified hyperlipidemia type- Primary documented in this encounter [facility] Summary Purpose Family History No Family History Records FoundNo Family History Records Found Advance Directives No Advanced Directives Records FoundDocuments on File Type Date 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 Source Comments (unrecognize d section and content) In the event this informatio n is protected by the Federal Confidentiality of Alcohol and Drug Abuse Patient Records regulations: The Federal rules restrict any use of the information to criminally investigate or prosecute any alcohol or drug abuse patient.[facility] the event this information is protected by the Federal Confidentiality of Alcohol and Drug Abuse Patient Records regulations: The Federal rules restrict any use of the information to criminally investigate or prosecute any alcohol or drug abuse patient.[facility] the event this information is protected by the Federal Confidentiality of Alcohol and Drug Abuse Patient Records regulations: The Federal rules restrict any use of the information to criminally investigate or prosecute any alcohol or drug abuse patient.[facility] the event this information is protected by the Federal Confidentiality of Alcohol and Drug Abuse Patient Records regulations: The Federal rules restrict any use of the information to criminally investigate or prosecute any alcohol or drug abuse patient.[facility] the event this information is protected by the Federal Confidentiality of Alcohol and Drug Abuse Patient Records regulations: The Federal rules restrict any use of the information to criminally investigate or prosecute any alcohol or drug abuse patient.[facility] the event this information is protected by the Federal Confidentiality of Alcohol and Drug Abuse Patient Records regulations: The Federal rules restrict any use of the information to criminally investigate or prosecute any alcohol or drug abuse patient.[facility] the event this information is protected by the Federal Confidentiality of Alcohol and Drug Abuse Patient Records regulations: The Federal rules restrict any use of the information to criminally investigate or prosecute any alcohol or drug abuse patient.[facility] the event this information is protected by the Federal Confidentiality of Alcohol and Drug Abuse Patient Records regulations: The Federal rules restrict any use of the information to criminally investigate or prosecute any alcohol or drug abuse patient.[facility] the event this information is protected by the Federal Confidentiality of Alcohol and Drug Abuse Patient Records regulations: The Federal rules restrict any use of the information to criminally investigate or prosecute any alcohol or drug abuse patient.[facility] Reason for Visit (unrecogniz ed section and content) Reason Onset Date Comments Refill Request 12/25/2021 Reason Comments Follow Up Specialty Diagnoses / Procedures Referred By Chato da silva Referred To Contact Urology Diagnoses Personal history of prostate cancer Procedures CONSULT TO UROLOGY NEW PATIENT VISIT LEVEL 5 Vilma Snow MD [address] [place] [address] Referral ID Status Reason Start Date Expiration Date V isits Requested Visits Authorized [id number] Closed PCP Requested Referral 08/09/2021 08/09/2022 1 1 Reason Onset Date Comments Refill Request 08/21/2022 Refill Request 09/03/2022 Reason Onset Date Comments Refill Request 12/16/2022 Reason Comments Results Reason Onset Date Comments Refill Request 06/26/2023 Care Teams (unrecognized sec tion and content) Neck Pinner Relationship Specialty Start Date End Date Vilma Snow MD [address] [place] [address] PCP - General Family Practice 12/06/16 Neck Pinner Relationship Specialty Start Date End Date Vilma Snow MD [address] [place] [address] PCP - General Family Medicine 12/06/16 Neck Pinner Relationship Specialty Start Date End Date Vilma Snow MD [address] [place] [address] PCP - General Family Medicine 12/06/16 Neck Pinner Relationship Specialty Start Date End Date Vilma Snow MD [facility] [place] [address] PCP - General Family Medicine 12/06/16 Neck Pinner Relationship Specialty Start Date End Date Vilma Snow MD [address] [place] [address] PCP - General Family Medicine 12/06/16 Neck Pinner Relationship Specialty Start Date End Date Vilma Snow MD [address] [place] [address] PCP - General Family Medicine 12/06/16 Neck Pinner Relationship Specialty Start Date End Date Vilma Snow MD [address] [place] [address] PCP - General Family Medicine 12/06/16 Neck Pinner Relationship Specialty Start Date End Date Vilma Snow MD [address] [place] [address] PCP - General Family Medicine [...] BE BASED ON THE PRIMARY CLINICAL RECORDS. [facility] [employer] [facility]. provides no warranty or guarantee of the accuracy or completeness of information in this document.
--- NOTE | 2023-09-11 16:10 | STRESSREP_ITS ---
Stress Test Report Date: 09/05/2023 Procedure: Pharmacologic stress nuclear imaging study Indications: Coronary artery disease Consent: Per the patient Procedure: The patient underwent pharmacologic (Regadenoson 0.4mg ) evaluation with a peak heart rate of 86 beats per minute (56%predicted maximal heart rate) and a peak blood pressure of 126/88 mmHg. The baseline ECG demonstrated sinus rhythm. The peak pharmacologic ECG demonstrated no ischemic change. A dropped beat with second-degree type I Mobitz block was noted postinfusion. There was no complaint of chest discomfort during pharmacologic infusion or recovery. The patient was injected with 14.8 millicuries of technetium 99m Cardiolite and subsequently rest SPECT Cardiolite nuclear imaging was obtained in the horizontal long, vertical long, and short axis views. The patient underwent pharmacologic (Regadenoson) evaluation. The patient was injected with 44.3 millicuries of technetium 99m Cardiolite and subsequently stress SPECT Cardiolite nuclear imaging was obtained in the horizontal long, vertical long, and short axis views. A gated Cardiolite study at peak stress was obtained. The examination was stopped secondary to completion of protocol. Rest and stress SPECT Cardiolite nuclear imaging status post realignment, normalization, and attenuation correction demonstrate no fixed or reversible perfusion defects. There is end systolic thickening and brightening. The gated Cardiolite study demonstrates myocardial thickening and inward wall motion. The reported LVEF is 62%. Impression: 1. Pharmacologic (Regadenoson) evaluation 2. Peak pharmacologic ECG with no ischemic changes. 3. Single episode of Mobitz type I second-degree AV block postinfusion. 5. Rest and stress SPECT Cardiolite nuclear imaging demonstrate relative uniform tracer uptake and myocardial perfusion appearing within normal limits. 6. The gated Cardiolite study reports an LVEF of 62%. This note was generated with [employer] software. It may contain incorrect words, spelling, and punctuation that were not noted in checking the note before signing.
== END | disposition home or self-care (01) ==
LOC: CVS 05:59
PROVIDERS: PCP Family Medicine; Referring Provider Nurse Practitioner Gerontology; Visit Provider Nurse Practitioner Gerontology
DX: I25.10 Atherosclerotic heart disease of native coronary artery without angina pectoris (principal)
CPT/HCPCS: 78452; 93017; A9500; A4216; J2785

== ENCOUNTER 2023-09-26 09:26 | Outpatient (CLI) | payer MEDICARE, SELFPAY ==
[2017-05-16 09:58] VITALS: BMI 30.9
[2023-09-26 09:42] VITALS: BP 127/90; PULSE 57; RESP 16; TEMP 36.1; O2SAT 97; BMI 30.9
[2023-09-26] MEDS: Mepolizumab 100 MG VIAL SC (09:49)
--- OUTSIDE RECORDS SUMMARY | 2023-09-26 10:23 | XMS RPT_ITS | CCD ---
Author Name Unknown Address [address] [place] [address] Organization [facility] Care Team Providers Care Belt And Link Assembly Supervisor Name Role Phone YOUSUF JEWELL Unavailable Unavailable [...] Translations: [CHLORZOXAZONE] Drug Allergy 03-11-2006 [facility] Repository Medications Current Medications Medication Drug Class(es) Dates Sig (Normalized) Sig (Original) atorvastatin 40 mg oral tablet (15 sources) HMG-CoA Reductase Inhibitor Start: 02-20-2023 End: 08-19-2023 take 1 tablet by mouth once daily atorvastatin (LIPITOR) 40 mg tablet Take 1 tablet by mouth once daily. 90 tablet 1 02/20/2023 08/19/2023 Active Completed/Discontinued Medications Medication Drug Class(es) Dates Sig (Normalized) Sig (Original) [id number] 200 actuat albuterol 0.09 mg/actuat metered dose [...] Coronary arteriosclerosis; Translations: [Atherosclerotic heart disease of chicken ranch coronary artery without angina pectoris] Onset: 7 [...] 95 % Vilma Snow MD Work Phone: [facility] 08-22-2022 09:39-0500 Body weight 107.41 kg Vilma Snow MD Work Phone: [facility] 08-22-2022 09:39-0500 Diastolic blood pressure 70 mm[Hg] Vilma Snow MD Work Phone: [facility] 08-22-2022 09:39-0500 Heart rate 63 /min Vilma Snow MD Work Phone: [facility] 08-22-2022 09:39-0500 Respiratory rate 16 /min Vilma Snow MD Work Phone: [facility] 08-22-2022 09:39-0500 SaO2% (BldA) [Mass fraction] 97 % Vilma Snow MD Work Phone: [facility] 08-22-2022 09:39-0500 Systolic blood pressure 106 mm[Hg] Vilma Snow MD Work Phone: [facility] 08-16-2022 08:08-0500 Body height 185.4 cm Ovi Peraza PA-C Work Phone: [facility] 08-16-2022 08:08-0500 Body temperature 98.01 [degF] Ovi Peraza PA-C Work Phone: [facility] 08-16-2022 08:08-0500 Body weight 106.14 kg Ovi Peraza PA-C Work Phone: [facility] 08-16-2022 08:08-0500 Diastolic blood pressure 84 mm[Hg] Ovi Peraza PA-C Work Phone: [facility] 08-16-2022 08:08-0500 Heart rate 82 /min Ovi Peraza PA-C Work Phone: [facility] 08-16-2022 08:08-0500 Respiratory rate 20 /min Ovi Peraza PA-C Work Phone: [facility] 08-16-2022 08:08-0500 SaO2% (BldA) [Mass fraction] 97 % Ovi Peraza PA-C Work Phone: [facility] 08-16-2022 08:08-0500 Systolic blood pressure 110 mm[Hg] Ovi Peraza PA-C Work Phone: [facility] Encounters Encounter Date Encounter Type Care Provider Facility Start: 07-02-2023 End: 07-03-2023 ambulatory VILMA SNOW Facility:[facility] Start: 06-26-2023 Refill Oliva Podlogar MANAGER BUSINESS DEVELOPMENT HOSPICE.HORSEBACK RIDING INSTRUCTOR Work Phone: [facility] Procedures Date Procedure Procedure Detail Performing Clinician Start: 02-19-2023 H/O: surgery S/P prostatectomy Aram Snow MD Work Phone: Start: 02-19-2023 Lipid 1996 panel - S patricia or Plasma Oliva Podlogar MANAGER BUSINESS DEVELOPMENT HOSPICE.HORSEBACK RIDING INSTRUCTOR Work Phone: Start: 08-16-2022 Urnls dip stick/tabl et rgnt auto w/o microscopy Ovi Peraza PA-C Work Phone: Start: 02-02-2021 Adult depression screening assessment Vilma Snow MD Work Phone: Plan of Treatment Date Care Activity Detail Author Start: 02-20-2028 Lipid 1996 panel - S patricia or Plasma Lipid Screening [facility] Start: 02-20-2028 LIPID SCREEN LIPID SCREEN [facility] Start: 12-11-2027 Urine microalbumin profile [facility] Start: 10-14-2027 PROSTATE CANCER SCRE ENING DISCUSSION PROSTATE CANCER SCREENING DISCUSSION [facility] Start: 08-14-2027 PROSTATE CANCER SCRE ENING DISCUSSION PROSTATE CANCER SCREENING DISCUSSION [facility] Start: 08-09-2026 PROSTATE CANCER SCRE ENING DISCUSSION PROSTATE CANCER SCREENING DISCUSSION [facility] Start: 02-19-2026 DIABETES SCREEN DIABETES SCREEN [facility] Start: 02-19-2026 Diabetes Screening Diabetes Screenin g [facility] Start: 02-02-2026 LIPID SCREEN LIPID SCREEN [facility] Start: 08-22-2025 DIABETES SCREEN DIABETES SCREEN [facility] Start: 08-09-2024 DIABETES SCREEN DIABETES SCREEN [facility] Start: 07-05-2024 ANNUAL PCP TEAM SCREED PERSON GUY DISEASE VISIT ANNUAL PCP TEAM CHRONIC DISEASE VISIT [facility] Start: 02-20-2024 BP CONTROLLED (<130/80) BP CONTROLLE D (<130/80) [facility] Start: 02-20-2024 Hepatitis B surface antibody level LDL CHOLESTEROL [facility] Start: 08-23-2023 COLORECTAL CANCER SCREENING COLORECTAL CANCER SCREENING [facility] Start: 08-23-2023 FECAL OCCULT BLOOD FECAL OCCULT BLOO D [facility] Start: 08-22-2023 ANNUAL PCP TEAM SCREED PERSON GUY DISEASE VISIT ANNUAL PCP TEAM CHRONIC DISEASE VISIT [facility] Start: 08-22-2023 BP CONTROLLED (<130/80) BP CONTROLLE D (<130/80) [facility] Start: 08-22-2023 SHINGRIX VACCINE (1 of 2) HERNANDEZ GRIX VACCINE (1 of 2) [facility] Immunizations Immunization Date Immunization Notes Care Provider Miguelangel alvarado 05-18-2021 influenza, high dose seasonal, preservative-free Vilma Snow MD Work Phone: [facility] 05-18-2021 influenza virus vaccine, unspecified formulation Oliva Wong MANAGER BUSINESS DEVELOPMENT HOSPICE.HORSEBACK RIDING INSTRUCTOR Work Phone: [facility] 10-24-2020 COVID-19 vaccine, ag e 12+ yr (PFIZER-BIONTECH - PURPLE TOP) Vilma Snow MD Work Phone: [facility] 10-04-2020 COVID-19 vaccine, ag e 12+ yr (PFIZER-BIONTECH - PURPLE TOP) Vilma Snow MD Work Phone: [facility] 06-21-2019 influenza, high dose seasonal, preservative-free Vilma Snow MD Work Phone: [facility] 06-21-2019 pneumococcal polysaccharide vaccine, 23 valent Vilma Snow MD Work Phone: [facility] 06-12-2018 influenza, injectabl e, quadrivalent, contains preservative Vilma Snow MD Work Phone: [facility] 12-10-2017 tetanus and diphther ia toxoids, adsorbed, preservative free, for adult use (5 Lf of tetanus toxoid and 2 Lf of diphtheria toxoid) Vilma Snow MD Work Phone: [facility] 09-26-2017 pneumococcal conjuga te vaccine, 13 valent Vilma Snow MD Work Phone: [facility] 05-31-2016 influenza, injectabl e, quadrivalent, contains preservative Vilma Snow MD Work Phone: [facility] 07-25-2015 influenza, injectabl e, quadrivalent, contains preservative Vilma Snow MD Work Phone: [facility] 05-27-2014 influenza, seasonal, injectable Vilma Snow MD Work Phone: [facility] 03-03-2007 tetanus toxoid, redu greg diphtheria toxoid, and acellular pertussis vaccine, adsorbed Vilma Snow MD Work Phone: [facility] Work Phone: 11-20-1993 diphtheria and tetan us toxoids, adsorbed for pediatric use Vilma Snow MD Work Phone: [facility] Work Phone: Payers Date Payer Category Payer Medicare AETNA MEDICARE A ETNA MEDICARE PPO [id number] 2021-Present [phone] [address] [place] [address] [facility] [id number] 2021 Medicare [id number] 2021 Medicare AETNA MEDICARE A ETNA MEDICARE PPO [id number] 2021-Present [phone] [address] [place] [address] PPO [id number] Social History Date Type Detail Facility Start: 03-23-2012 End: 08-22-2022 Tobacco smoking status NHIS Ex-smoker [facility] Work Phone: End: 08-18-1989 History of tobacco use Current smoker [facility] Work Phone: End: 08-18-1989 History of tobacco use Cigarette Smoker [facility] Work Phone: Start: 03-23-2012 End: 02-19-2023 Cigarettes smoked current (pack per day) - Reported 1 [facility] Start: 03-23-2012 End: 08-22-2022 Tobacco use and exposure Former smokeless tobacco user [facility] Work Phone: End: 01-16-2017 History of tobacco use Snuff User [facility] Work Phone: Start: 08-14-2021 End: 02-19-2023 Alcohol intake Current drinker of alcohol (finding) [facility] Start: 12-14-2019 History SDOH Alcohol Frequency 2 [facility] Start: 12-14-2019 History SDOH Alcohol Std Drinks 1 [facility] Start: 03-23-2012 History SDOH Alcohol Comment rare-beer [facility] Start: 12-14-2019 History SDOH Social Connections Phone 5 [facility] Start: 12-14-2019 History SDOH Social Connections Get Together 4 [facility] Start: 12-14-2019 History SDOH Social Connections Evangelical 3 [facility] Start: 12-14-2019 Education 12 [facility] Start: 1955 Sex Assigned At Male [facility] Start: 12-14-2019 End: 02-19-2023 Social connection and isolation panel [facility] Do you belong to any clubs or organizations such as uatsdin groups, unions, fraternal or athletic groups, or school groups? Yes [facility] Are you now , , , , never or living with a partner? [facility] How often to you hav e a drink containing alcohol? Monthly or less [facility] How many standard dr inks containing alcohol do you have on a typical day? 1 or 2 [facility] How often do you hav e 6 or more drinks on 1 occasion? Never [facility] How hard is it for y ou to pay for the very basics like food, housing, medical care, and heating Not hard at all [facility] (I/We) worried milton (my/our) food would run out before (I/we) got money to buy more. Never true [facility] Start: 02-02-2021 Gender identity Identifies as male gender (finding) [facility] Clinical Notes 09-08-2017 to 06-26-2023 Telephone Encounter - Jennifer Pena Ma - 06/26/2023 2:12 PM ESTTelephone Encounter - Viridiana Cruz LPN - 02/20/2023 10:45 AM EDTChkecia Snow MD - 02/19/2023 8:52 AM EDT Note Date & Type Note Facility 06-26-2023 Miscellaneous Notes Last office visit: 02/19/23 F/u scheduled: 08/22/23 Jennifer Pena Ma documented in this encounter [facility] 02-20-2023 Miscellaneous Notes Patient notified. Verbalized understanding. [...] will send rx. Please fax labs to disability examiner's office. documented in this encounter [facility] 02-19-2023 Note HNO ID: [id number] Author: Vilma Snow MD Service: ? Author Type: Physician Type: Progress Notes Filed: 02/19/2023 3:24 PM Note Text: Chief Complaint Patient presents with: Follow Up HPI Maci Redman is a 67 year old male who presents here today for Above Complaints. CAD s/p SHANIQUA to LAD: managed by [facility] Cardiology. No changes to regimen at [...] stroke prevention. Would like ears checked today. [place] full yesterday and treated with debrox drops. [...] DIAGNOSTIC 05/01/2007 EGD ESOPHAGOGASTRODUODENOSCOPY TRANSORAL DIAGNOSTIC 03/21/2013 [facility] EGD PAST SURGICAL HISTORY OF submandibular gland [...] No nausea, vomiting, (more content not included)... [facility] 02-19-2023 History of Presen t illness Narrative Chief Complaint Patient presents with: Follow Up HPI Maci Redman is a 67 year old male who presents here today for Above Complaints. CAD s/p SHANIQUA to LAD: managed by [facility] Cardiology. No changes to regimen at [...] stroke prevention. Would like ears checked today. [place] full yesterday and treated with debrox drops. [...] DIAGNOSTIC 05/01/2007 EGD ESOPHAGOGASTRODUODENOSCOPY TRANSORAL DIAGNOSTIC 03/21/2013 [facility] EGD PAST SURGICAL HISTORY OF submandibular gland [...] Abs Lymph 1.00 - 4.00 k/uL 1.73 Marion% % 9.8 Abs Marion <0.87 k/uL 0.65 Eosin% % 0.9 Abs [...] - Avoidance of triggers recommended - notify electric switch repairer of worsening symptoms. 2. SOB (shortness of breath) - ICD9: 786.05, ICD10: R06.02 See above 3. Coronary artery disease involving chicken ranch heart without angina pectoris, unspecified vessel or [...] Vilma Snow MD documented in this encounter [facility] 12-16-2022 Miscellaneous Notes Patient has been identified [...] Pauly Flores MA documented in this encounter [facility] 08-22-2022 Note HNO ID: [id number] Author: Vilma Snow MD Service: ? Author [...] DIAGNOSTIC 05/01/2007 EGD ESOPHAGOGASTRODUODENOSCOPY TRANSORAL DIAGNOSTIC 03/21/2013 [facility] EGD PAST SURGICAL HISTORY OF submandibular gland [...] which is s (more content not included)... [facility] 08-22-2022 History of Presen t illness [...] DIAGNOSTIC 05/01/2007 EGD ESOPHAGOGASTRODUODENOSCOPY TRANSORAL DIAGNOSTIC 03/21/2013 [facility] EGD PAST SURGICAL HISTORY OF submandibular gland [...] Patient Allergies ALLERGIES Allergen Reactions Marlenpedro [facility] [* Current Medications Current Outpatient Medications on [...] BP <130/80 2. Coronary artery disease involving chicken ranch heart without angina pectoris, unspecified vessel or lesion type - ICD9: 414.01, ICD10: I25.10 S/p SHANIQUA. On mcfp DAPT. Asymptomatic on medical management. No change [...] Vilma Snow MD documented in this encounter [facility] 08-21-2022 Miscellaneous Notes Patient has been identified [...] Genny Lawson LPN documented in this encounter [facility] 08-16-2022 Note HNO ID: [id number] Author: Ovi Peraza PA-C Service: ? Author Type: Physician Mortgage Loan Processing Clerk Type: Progress Notes Filed: 08/16/2022 2:15 PM Note Text: [facility] ESTABLISHED PATIENT CLINIC NOTE [...] DIAGNOSTIC 05/01/2007 EGD ESOPHAGOGASTRODUODENOSCOPY TRANSORAL DIAGNOSTIC 03/21/2013 [facility] EGD PAST SURGICAL HISTORY OF submandibular gland [...] mg/dL BILIRUBIN U (more content not included)... [facility] 08-16-2022 Note HNO ID: [id number] Author: Vickie Jones LPN Service: ? Author [...] the procedure well. Plan: Appointment with Ovi. [facility] 08-16-2022 Instructions Ovi Peraza PA-C - 08/16/2022 8:37 AM EST > PSA in 2 months to check doubling time, if 0.4 or higher will recommend a MRI and Bone Scan documented in this encounter [facility] 08-16-2022 History of Presen t illness Narrative Images from the original note were not included. [facility] [...] DIAGNOSTIC 05/01/2007 EGD ESOPHAGOGASTRODUODENOSCOPY TRANSORAL DIAGNOSTIC 03/21/2013 [facility] EGD PAST SURGICAL HISTORY OF submandibular gland [...] Appointment with Ovi. documented in this encounter [facility] 12-25-2021 Miscellaneous Notes Patient has been identified [...] Randa Uribe LPN documented in this encounter [facility] 11-13-2021 Miscellaneous Notes CAROLANN 08/09/21 NOV no [...] patient. Shellie Bah documented in this encounter [facility] documented as of this encounter (statuses as of 11/14/2021) [facility] History of Past illness Narrative* Problem Noted [...] of this encounter (statuses as of 12/25/2021) [facility] of Past illness Narrative* Problem Noted [...] of this encounter (statuses as of 08/21/2022) [facility] of Past illness Narrative* Problem Noted [...] of this encounter (statuses as of 08/23/2022) [facility] of Past illness Narrative* Problem Noted [...] of this encounter (statuses as of 09/03/2022) [facility] of Past illness Narrative* Problem Noted [...] of this encounter (statuses as of 12/16/2022) [facility] of Past illness Narrative* Problem Noted [...] of this encounter (statuses as of 02/19/2023) [facility] of Past illness Narrative* Problem Noted [...] of this encounter (statuses as of 02/20/2023) [facility] of Past illness Narrative* Problem Noted [...] of this encounter (statuses as of 06/27/2023) [facility] Diagnosis Personal history of prostate cancer- Primary Personal history of malignant neoplasm of prostate [facility]* Diagnosis Essential hypertension- Primary Unspecified essential hypertension Coronary artery disease involving chicken ranch heart without angina pectoris, unspecified vessel or [...] Anxiety with depression [facility]* Diagnosis Severe persistent asthma, uncomplicated- Primary Unspecified asthma SOB (shortness of breath) Shortness of breath Coronary artery disease involving chicken ranch heart without angina pectoris, unspecified vessel or [...] bronchitis type (HCC) documented [facility] this encounter [facility]* Diagnosis Hyperlipidemia, unspecified hyperlipidemia type- Primary documented in this encounter [facility] Summary Purpose Family History No Family History Records FoundNo Family History Records Found Advance Directives No Advanced Directives Records FoundDocuments on File Type Date Recorded Patient 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 Advance Directive(s) 11/10/2017 10:50 AM Additional Source Comments (unrecognized sect ion and content) No Status Records FoundNo Status Records Found INFORMATION SOURCE (unrecogn ized section and content) DATE CREATED AUTHOR AUTHOR'S ORGANIZ ATION 07/03/2023 [facility] Source Comments (unrecognize d section and content) In the event this informatio n is protected by the Federal Confidentiality of Alcohol and Drug Abuse Patient Records regulations: The Federal rules restrict any use of the information to criminally investigate or prosecute any alcohol or drug abuse patient.[facility] the event this information is protected by the Federal Confidentiality of Alcohol and Drug Abuse Patient Records regulations: The Federal rules restrict any use of the information to criminally investigate or prosecute any alcohol or drug abuse patient.[facility] the event this information is protected by the Federal Confidentiality of Alcohol and Drug Abuse Patient Records regulations: The Federal rules restrict any use of the information to criminally investigate or prosecute any alcohol or drug abuse patient.[facility] the event this information is protected by the Federal Confidentiality of Alcohol and Drug Abuse Patient Records regulations: The Federal rules restrict any use of the information to criminally investigate or prosecute any alcohol or drug abuse patient.[facility] the event this information is protected by the Federal Confidentiality of Alcohol and Drug Abuse Patient Records regulations: The Federal rules restrict any use of the information to criminally investigate or prosecute any alcohol or drug abuse patient.[facility] Center[facility] the event this information is protected by the Federal Confidentiality of Alcohol and Drug Abuse Patient Records regulations: The Federal rules restrict any use of the information to criminally investigate or prosecute any alcohol or drug abuse patient.[facility] Center[facility] the event this information is protected by the Federal Confidentiality of Alcohol and Drug Abuse Patient Records regulations: The Federal rules restrict any use of the information to criminally investigate or prosecute any alcohol or drug abuse patient.[facility] Center[facility] the event this information is protected by the Federal Confidentiality of Alcohol and Drug Abuse Patient Records regulations: The Federal rules restrict any use of the information to criminally investigate or prosecute any alcohol or drug abuse patient.[facility] Center[facility] the event this information is protected by the Federal Confidentiality of Alcohol and Drug Abuse Patient Records regulations: The Federal rules restrict any use of the information to criminally investigate or prosecute any alcohol or drug abuse patient.[facility] Reason for Visit (unrecogniz ed section and content) Reason Onset Date Comments Refill Request 12/25/2021 Reason Comments Follow Up Specialty Diagnoses / Procedures Referred By Chato da silva Referred To Contact Urology Diagnoses Personal history of prostate cancer Procedures CONSULT TO UROLOGY NEW PATIENT VISIT LEVEL 5 Vilma Snow MD [address] [place] [address] Referral ID Status Reason Start Date Expiration Date V isits Requested Visits Authorized [id number] Closed PCP Requested Referral 08/09/2021 08/09/2022 1 1 Reason Onset Date Comments Refill Request 08/21/2022 Refill Request 09/03/2022 Reason Onset Date Comments Refill Request 12/16/2022 Reason Comments Results Reason Onset Date Comments Refill Request 06/26/2023 Care Teams (unrecognized sec tion and content) Belt And Link Assembly Supervisor Relationship Specialty Start Date End Date Vilma Snow MD [address] [place] [address] PCP - General Family Practice 12/06/16 Belt And Link Assembly Supervisor Relationship Specialty Start Date End Date Vilma Snow MD [address] [place] [address] PCP - General Family Medicine 12/06/16 Belt And Link Assembly Supervisor Relationship Specialty Start Date End Date Vilma Snow MD [address] [place] [address] PCP - General Family Medicine 12/06/16 Belt And Link Assembly Supervisor Relationship Specialty Start Date End Date Vilma Snow MD [facility] [place] [address] PCP - General Family Medicine 12/06/16 Belt And Link Assembly Supervisor Relationship Specialty Start Date End Date Vilma Snow MD [address] [place] [id number] PCP - General Family Medicine 12/06/16 Belt And Link Assembly Supervisor Relationship Specialty Start Date End Date Vilma Snow MD [address] [place] [id number] PCP - General Family Medicine 12/06/16 Belt And Link Assembly Supervisor Relationship Specialty Start Date End Date Vilma Snow MD [address] [place] [address] PCP - General Family Medicine 12/06/16 [employer] Relationship Specialty Start Date End Date Vilma Snow MD [address] [place] [address] PCP - General Family Medicine [...] BE BASED ON THE PRIMARY CLINICAL RECORDS. [facility] [employer] [facility]. provides no warranty or guarantee of the accuracy or completeness of information in this document.
== END 2023-09-26 09:27 | disposition home or self-care (01) ==
LOC: MEDOUTP 09:26
PROVIDERS: PCP Family Medicine; Referring Provider Nurse Practitioner Acute Care; Visit Provider Nurse Practitioner Acute Care
DX: J45.50 Severe persistent asthma, uncomplicated (principal)
CPT/HCPCS: 96372; J2182

== ENCOUNTER 2023-10-24 09:24 | Outpatient (CLI) | payer MEDICARE, SELFPAY ==
[2017-05-16 09:58] VITALS: BMI 30.9
[2023-10-24 09:32] VITALS: BP 128/65; PULSE 58; RESP 16; TEMP 36.1; O2SAT 99; BMI 30.9
[2023-10-24] MEDS: Mepolizumab 100 MG VIAL SC (09:59)
== END 2023-10-24 09:25 | disposition home or self-care (01) ==
LOC: MEDOUTP 09:24
PROVIDERS: PCP Family Medicine; Referring Provider Nurse Practitioner Acute Care; Visit Provider Nurse Practitioner Acute Care
DX: J45.50 Severe persistent asthma, uncomplicated (principal)
CPT/HCPCS: 96372; J2182

== ENCOUNTER 2023-11-21 08:20 | Outpatient (CLI) | payer MEDICARE, SELFPAY ==
[2017-05-16 09:58] VITALS: BMI 30.9
[2023-11-21 08:27] VITALS: BP 137/72; PULSE 63; RESP 16; TEMP 35.5; O2SAT 97; BMI 30.9
[2023-11-21] MEDS: Mepolizumab 100 MG VIAL SC (08:46)
== END 2023-11-21 08:21 | disposition home or self-care (01) ==
LOC: MEDOUTP 08:20
PROVIDERS: PCP Family Medicine; Referring Provider Nurse Practitioner Acute Care; Visit Provider Nurse Practitioner Acute Care
DX: J45.50 Severe persistent asthma, uncomplicated (principal)
CPT/HCPCS: 96372; J2182

== ENCOUNTER 2023-12-19 08:55 | Outpatient (CLI) | payer MEDICARE, SELFPAY ==
[2017-05-16 09:58] VITALS: BMI 30.9
[2023-12-19 09:03] VITALS: BP 129/79; PULSE 52; RESP 16; TEMP 36.1; O2SAT 95; BMI 30.9
[2023-12-19] MEDS: Mepolizumab 100 MG VIAL SC (09:14)
== END 2023-12-19 08:56 | disposition home or self-care (01) ==
LOC: MEDOUTP 08:55
PROVIDERS: PCP Family Medicine; Referring Provider Nurse Practitioner Acute Care; Visit Provider Nurse Practitioner Acute Care
DX: J45.50 Severe persistent asthma, uncomplicated (principal)
CPT/HCPCS: 96372; J2182

== ENCOUNTER 2024-01-16 08:55 | Outpatient (CLI) | payer MEDICARE, SELFPAY ==
[2017-05-16 09:58] VITALS: BMI 30.9
[2024-01-16 09:01] VITALS: BP 128/80; PULSE 53; RESP 16; TEMP 35.9; O2SAT 99; BMI 30.9
[2024-01-16] MEDS: Mepolizumab 100 MG VIAL SC (09:26)
== END 2024-01-16 23:59 | disposition home or self-care (01) ==
LOC: MEDOUTP 08:55
PROVIDERS: PCP Family Medicine; Referring Provider Nurse Practitioner Acute Care; Visit Provider Nurse Practitioner Acute Care
DX: J45.50 Severe persistent asthma, uncomplicated (principal)
CPT/HCPCS: 96372; J2182

== ENCOUNTER 2024-02-13 10:42 | Outpatient (CLI) | payer MEDICARE, SELFPAY ==
[2017-05-16 09:58] VITALS: BMI 30.9
[2024-02-13 11:01] VITALS: BP 119/84; PULSE 57; RESP 16; TEMP 36.4; O2SAT 95; BMI 30.9
[2024-02-13] MEDS: Mepolizumab 100 MG VIAL SC (11:18)
== END 2024-02-13 23:59 | disposition home or self-care (01) ==
LOC: MEDOUTP 10:42
PROVIDERS: PCP Family Medicine; Referring Provider Nurse Practitioner Acute Care; Visit Provider Nurse Practitioner Acute Care
DX: J45.50 Severe persistent asthma, uncomplicated (principal)
CPT/HCPCS: 96372; J2182

== ENCOUNTER 2024-03-12 10:56 | Outpatient (CLI) | payer MEDICARE, SELFPAY ==
[2017-05-16 09:58] VITALS: BMI 30.9
[2024-03-12 11:05] VITALS: BP 121/81; PULSE 52; RESP 16; TEMP 36.1; O2SAT 97; BMI 30.9
[2024-03-12] MEDS: Mepolizumab 100 MG VIAL SC (11:23)
== END 2024-03-12 23:59 | disposition home or self-care (01) ==
LOC: MEDOUTP 10:56
PROVIDERS: PCP Family Medicine; Referring Provider Nurse Practitioner Acute Care; Visit Provider Nurse Practitioner Acute Care
DX: J45.50 Severe persistent asthma, uncomplicated (principal)
CPT/HCPCS: 96372; J2182

== ENCOUNTER 2024-04-09 11:30 | Outpatient (CLI) | payer MEDICARE, SELFPAY ==
[2017-05-16 09:58] VITALS: BMI 30.9
[2024-04-09 11:35] VITALS: BP 117/72; PULSE 44; RESP 16; TEMP 35.6; O2SAT 100
== END 2024-04-09 23:59 | disposition home or self-care (01) ==
LOC: MEDOUTP 11:30
PROVIDERS: PCP Family Medicine; Referring Provider Nurse Practitioner Acute Care; Visit Provider Nurse Practitioner Acute Care
DX: J45.50 Severe persistent asthma, uncomplicated (principal)
CPT/HCPCS: J2182

== ENCOUNTER 2024-04-09 12:10 | Emergency (ER) | payer MEDICARE, SELFPAY ==
[2017-05-16 09:58] VITALS: BMI 30.9
[2024-04-09 12:14] VITALS: BP 156/86; PULSE 35; RESP 16; TEMP 36.6; O2SAT 98
[2024-04-09 12:24] VITALS: BMI 30.7
[2024-04-09 12:39] LABS: Hematocrit 49.7 % (40-54); Hemoglobin 16.9 g/dL (13.0-16.5); Mean Corpuscular Hgb 32.4 pg (27.0-32.0); Mean Corpuscular Volume 95.2 fL (80-94); Mean Platelet Vol. 8.6 fl (6.2-12.0); Platelet Count 144 K/mm3 (150-450); RBC Distribution Width CV 13.7 % (11.6-14.6); RBC Distribution Width SD 47.1 fl (35.1-43.9); Red Blood Count 5.22 M/mm3 (4.6-6.2); White Blood Count 9.4 K/mm3 (4.4-11.0)
[2024-04-09 12:58] LABS: Anion Gap 6 (5-15); BUN 24 mg/dL (7-18); BUN/Creat Ratio 23.3 RATIO (10-20); Calcium,Total 8.7 mg/dL (8.5-10.1); Chloride 107 mmol/L (98-107); Creatinine, Serum 1.03 mg/dL (0.70-1.30); EST Glomerular Filtration Rate 76 mL/min (>60); Est Glom Filt Rate - Afr Amer 92 mL/min (>60); Estimated Creatinine Clearance 86.34 ml/min; Glucose 90 mg/dL (74-106); Potassium 3.5 mmol/L (3.5-5.1); Sodium Level 138 mmol/L (136-145); Troponin-I HS (w/2H Reflex) 8 pg/mL (3.0-78.0)
[2024-04-09 13:10] VITALS: BP 119/93; PULSE 58; RESP 13; O2SAT 96
[2024-04-09 13:32] VITALS: BP 114/75; BP 118/87; BP 131/73; PULSE 68; PULSE 71; PULSE 75
--- NOTE | 2024-04-09 13:43 | EDS_ITS ---
HPI History of Present Illness Chief Complaint: Palpitations Detail of Chief Complaint: Sent for slow heart rate, 35 Informant: patient Onset/Context/Timing Onset: - (Unknown. It was noted when he was assessed prior to laboratory work) Context: - (Unknown) Timing: - (Unknown) Quality: Patient with frequent premature ventricular beats and bigeminy Location: Cardiac Current Severity: Mild Maximum Severity: Mild Worsened by: Nothing to patient's knowledge Relieved by: Not applicable Associated Symptoms Associated Symptoms: None Narrative Narrative: Patient is a 68-year-old male. He has history of hyperlipidemia, CVA, coronary disease with stent placement April 2017, obstructive sleep apnea, reflux and prostate cancer. Patient denies orthostatic symptoms. Patient denies chest discomfort of any type. He denies dyspnea, dyspnea on exertion orthopnea or PND. He denies pedal edema. Prior similar symptoms: No Recent Illness/Hospitalization: No PFSH [facility] Medical History Pre-operative cardiovascular examination Abnormal CT scan, chest Asthma-COPD overlap syndrome Bronchiectasis Severe persistent asthma not dependent on systemic steroids Essential hypertension CVA (cerebral vascular accident) Atherosclerotic heart disease of [place] coronary artery without angina pectoris Diastolic dysfunction URI (upper respiratory infection) Wheezing Dyspnea LESLY (obstructive sleep apnea) Pneumonia HTN (hypertension) Sinusitis Acute exacerbation of COPD with asthma Hyperlipidemia Chest pain Obesity (BMI 30.0-34.9) COPD (chronic obstructive pulmonary disease) Asthma Gastric reflux Prostate cancer Patent foramen ovale Home Medications ?Medication ?Instructions ?Recorded ?Last Taken ?Type clopidogrel 75 mg tablet 75 mg PO DINNER antiplatelet/heart 03/11/17 03/11/17 History health pantoprazole 20 mg tablet,delayed 20 mg PO DINNER gerd 03/11/17 03/11/17 History release nitroglycerin 0.4 mg sublingual 0.4 mg sublingual Q5M PRN Chest 02/24/20 Unknown Rx tablet Pain #25 tabs mepolizumab 100 mg/mL subcutaneous 100 mg subcut Q4W 08/30/20 Unknown History auto-injector lactobacillus combination no.4 3 3,000 mmu cells PO DAILY 12/19/23 Unknown History billion cell capsule (Probiotic) montelukast 10 mg tablet 10 mg PO DAILY@1700 #90 tabs 01/06/24 Unknown Rx atorvastatin 80 mg tablet 80 mg PO QDAY 01/29/24 Unknown History losartan 25 mg tablet 25 mg PO QDAY 01/29/24 Unknown History prednisone 10 mg tablet 10 mg PO QDAY #30 tabs 04/02/24 Unknown Rx levofloxacin 750 mg tablet 750 mg PO DAILY 04/09/24 Unknown History Allergy/AdvReac Type Severity Reaction Status Date / Time No Known Allergies Allergy Verified 04/09/24 12:11 Family History Father Hypertension Prostate cancer Mother CAD (coronary artery disease) Surgical History History of left heart catheterization (LHC) History of vasectomy History of prostate surgery Postsurgical percutaneous transluminal coronary angioplasty (PTCA) status (~05/15/17) Presence of stent in coronary artery (~05/15/17) Social History household members: spouse housing: house Smoking Status: Former smoker how long ago did patient quit smokin-30 years ago second hand exposure: Yes alcohol intake: current alcohol intake frequency: a few times a month substance use type: does not use caffeine: Yes Type: coffee Number of servings: 2 what type of physical activity do you participate in: none frequency: does not exercise seatbelt use: always ROS ROS ED Constitutional Constitutional ED: Denies chills, fever(s), subjective or sweats Eyes Eyes: Denies blurry vision or change in vision ENT ENT ED: Denies ear pain, rhinorrhea or sore throat Cardiovascular Cardiovascular: Denies chest pain, orthopnea, palpitations, paroxysmal nocturnal dyspnea or racing heartbeat Respiratory/Chest Respiratory/Chest: Denies cough, dyspnea, dyspnea on exertion, orthopnea or paroxysmal nocturnal dyspnea Gastrointestinal Gastrointestinal: Denies abdominal pain, constipation, diarrhea, nausea or vomiting Genitourinary Genitourinary ED: Denies dysuria, hematuria or urinary frequency Musculoskeletal Musculoskeletal: Denies arthralgias, back pain, myalgias or neck pain Integumentary Denies abscess, Abrasions or rash Neurologic Neurologic: Denies paresthesias or weakness Psychiatric Psychiatric: Denies anxiety or depression Endocrine Endocrinology: Denies cold intolerance or heat intolerance Hematologic/Lymphatic Hematologic/Lymphatic: Reports systems reviewed and no addt'l complaints, except as documented Allergic/Immunologic Allergic/Immunologic ED: Denies mouth swelling or tongue swelling EXAM Physical Exam Const Vital Signs: 04/09/24 12:14 04/09/24 12:16 04/09/24 13:10 Temperature 97.9 F Temperature Source Temporal Pulse Rate 35 L 58 L Pulse Rate [Lying] Pulse Rate [Sitting (for 1 minute prior to obtaining)] Pulse Rate [Standing (for 1 minute prior to obtaining)] Respiratory Rate 16 13 Respiratory Effort Normal Blood Pressure 156/86 H 119/93 H Blood Pressure [Lying] Blood Pressure [Sitting (for 1 minute prior to obtaining)] Blood Pressure [Standing (for 1 minute prior to obtaining)] Blood Pressure Mean 109 101 Blood Pressure Mean [Lying] Blood Pressure Mean [Sitting (for 1 minute prior to obtaining)] Blood Pressure Mean [Standing (for 1 minute prior to obtaining)] Pulse Ox 98 96 Oxygen Delivery Method Room Air Room Air 04/09/24 13:32 04/09/24 14:00 04/09/24 15:00 Temperature Temperature Source Pulse Rate 53 L 68 Pulse Rate [Lying] 68 Pulse Rate [Sitting (for 1 minute prior to obtaining)] 71 Pulse Rate [Standing (for 1 minute prior to obtaining)] 75 Respiratory Rate 15 15 Respiratory Effort Blood Pressure 118/90 H 122/88 H Blood Pressure [Lying] 118/87 H Blood Pressure [Sitting (for 1 minute prior to obtaining)] 131/73 H Blood Pressure [Standing (for 1 minute prior to obtaining)] 114/75 Blood Pressure Mean 100 99 Blood Pressure Mean [Lying] 97 Blood Pressure Mean [Sitting (for 1 minute prior to obtaining)] 92 Blood Pressure Mean [Standing (for 1 minute prior to obtaining)] 88 Pulse Ox 93 Oxygen Delivery Method Positive well nourished and well developed General Appearance ED: well developed and NAD; Negative for cyanotic, diaphoretic or pallor HEENT Reports moist mucous membranes and dry mucous membranes Mouth ED: Yes dry mucous membranes Mouth: dry mucous membranes Eyes PERRL and EOMs intact bilaterally General Eye ED: Negative for pale conjunctiva or scleral icterus Neck no lymphadenopathy, supple and no JVD Resp normal respiratory effort and clear to auscultation bilaterally Cardio regular rhythm, S1 normal heart sound, S2 normal heart sound and no murmurs GI normal to inspection, nondistended, normoactive bowel sounds, non-tender, non- distended and no masses; Negative for hepatosplenomegaly Auscultation: normoactive bowel sounds Palpation: soft Back/Spine no CVA tenderness Cervical Spine: Negative for cervical spine tenderness Thoracic Spine / Upper Back: Negative for thoracic spinal tenderness Extremity normal to inspection Extremity Narrative: Distal pulses are palpable and symmetric. Neuro oriented x3, CN's II-XII intact bilaterally and no sensory deficits noted Sensorium / Orientation: alert Psych mental status grossly normal Skin no rashes or lesions noted, no wounds and skin turgor normal General Skin Exam: elasticity normal; Negative for jaundice or pallor MDM MDM MDM Narrative Medical decision making narrative: Monitor reveals bigeminy and pulse is 35. Heart rate however is 71. Patient is having frequent monofocal premature ventricular beats and episodes of bigeminy. He is not hemodynamically unstable. Since the onset is unknown we will obtain a basic metabolic panel to assess for hypokalemia. Troponin to assess for possible cardiac ischemia Lab Data Attestation: I reviewed the patient's lab results. Lab results narrative: CBC is normal. BMP is unremarkable. BUN to creatinine ratio and BUN are slightly elevated. First troponin was 8 with a second of 7 and delta of -1. Labs: Laboratory Results - last 24 hr 04/09/24 04/09/24 12:24 14:40 WBC 9.4 RBC 5.22 Hgb 16.9 H Hct 49.7 MCV 95.2 H MCH 32.4 H MCHC 34.0 RDW Std Deviation 47.1 H RDW Coeff of Melvin 13.7 Plt Count 144 L MPV 8.6 Sodium 138 Potassium 3.5 Chloride 107 Carbon Dioxide 25.0 Anion Gap 6 BUN 24 H Creatinine 1.03 Estim Creat Clear Calc 86.34 Est GFR (MDRD) Af Amer 92 Est GFR (MDRD) Non-Af 76 BUN/Creatinine Ratio 23.3 H Glucose 90 Calcium 8.7 Troponin I High Sens 8 7 Rhythm Strip Rhythm Strip: Sinus Rhythm Rate: 71 Ectopy: PVC(s) (Bigeminy) EKG Initial EKG: Attestation: I personally reviewed and interpreted this EKG as follows: Interpretation: Sinus Rhythm (Rate is 74. Patient has frequent premature ventricular beats and is presently in bigeminy. Parable is 200 ms. QRS durations 134 ms. QT duration 4 and 36 ms. Patient does have an RR prime in V1 through V3 consistent with a right bundle branch block. There is no acute ischemic changes noted.) Management Discussion w/another healthcare provider: Independent Living Specialist (Cardiology was paged to inform of patient's presentation and for follow-up in the next week. There is been no call back as of 1542. Patient be discharged home) Discharge Plan Triage Chief Complaint: Palpitations ED Provider: Tyrone Galvan Dx/Rx/DC Orders Clinical Impression: Ventricular bigeminy, Hyperlipidemia, Diastolic dysfunction, Atherosclerotic heart disease of [place] coronary artery without angina pectoris, CVA (cerebral vascular accident), Essential hypertension Instructions: ED About Arrhythmias Prescriptions: No Action mepolizumab 100 mg/mL auto-injector 100 mg SC Q4W losartan 25 mg tablet 25 mg PO QDAY atorvastatin 80 mg tablet 80 mg PO QDAY pantoprazole 20 MG tablet 20 mg PO DINNER Patient Comments: GERD clopidogrel 75 MG tablet 75 mg PO DINNER Patient Comments: blood thinnerWAS TOLD TO ASK ABOUT STOPPING Probiotic 3 billion cell capsule 3,000 mmu cells PO DAILY Rx Instructions: administer with a meal levofloxacin 750 mg tablet 750 mg PO DAILY nitroglycerin 0.4 mg tablet, sublingual 0.4 mg SUBLINGUAL Q5M PRN (Reason: Chest Pain) Qty: 25 3RF montelukast 10 mg tablet 10 mg PO DAILY@1700 Qty: 90 3RF prednisone 10 mg tablet 10 mg PO QDAY Qty: 30 0RF Rx Instructions: take 4 tabs for three days, then 3 tabs for three days, then 2 tabs for three days, then 1 tab for 3 days Primary Care Provider: Elmo Snow Referrals: Ron Yancey MD [Med Staff - Active Staff] - 1 Week Elmo Snow MD [Primary Care Provider] - Print Language: Romansh Disposition Disposition: Home, Self Care
[2024-04-09 14:00] VITALS: BP 118/90; PULSE 53; RESP 15
[2024-04-09 14:32] LABS: Reflex Troponin-HS? (from REC) Y
[2024-04-09 15:00] VITALS: BP 122/88; PULSE 68; RESP 15; O2SAT 93
[2024-04-09 15:21] LABS: Troponin-I HS 7 pg/mL (3.0-78.0)
--- NOTE | 2024-04-09 15:46 | ED.RN ---
Infusion center called, voicemail left with request for pt to return there after d/c here to receive injection.
[2024-04-09 15:53] VITALS: BP 125/91; PULSE 62; RESP 13; TEMP 36.2; O2SAT 97
== END 2024-04-09 15:54 | disposition home or self-care (01) ==
PROVIDERS: Emergency Provider Emergency Medicine; PCP Family Medicine; Visit Provider Emergency Medicine
DX: I49.3 Ventricular premature depolarization (principal); J45.50 Severe persistent asthma, uncomplicated; J44.9 Chronic obstructive pulmonary disease, unspecified; I25.10 Atherosclerotic heart disease of native coronary artery without angina pectoris; I10 Essential (primary) hypertension; E78.5 Hyperlipidemia, unspecified; G47.33 Obstructive sleep apnea (adult) (pediatric); Z79.02 Long term (current) use of antithrombotics/antiplatelets; Z79.899 Other long term (current) drug therapy; Z95.5 Presence of coronary angioplasty implant and graft; Z86.73 Personal history of transient ischemic attack (TIA), and cerebral infarction without residual deficits; Z85.46 Personal history of malignant neoplasm of prostate; Z87.891 Personal history of nicotine dependence
CPT/HCPCS: 80048; 84484; 85027; 93005; 99285; A4216

== ENCOUNTER → 2024-04-13 | Outpatient (CLI) | payer MEDICARE, SELFPAY ==
[2017-05-16 09:58] VITALS: BMI 30.9
[2024-04-13 13:18] LABS: BNP,B-Type NATRIURETIC PEPTIDE 54.9 pg/mL (0-100)
[2024-04-13 14:43] LABS: Magnesium 2.5 mg/dL (1.6-2.6)
== END | disposition home or self-care (01) ==
LOC: LAB 12:05
PROVIDERS: PCP Family Medicine; Referring Provider Nurse Practitioner Family; Visit Provider Nurse Practitioner Family
DX: I49.8 Other specified cardiac arrhythmias (principal); Z95.5 Presence of coronary angioplasty implant and graft; I10 Essential (primary) hypertension; E78.5 Hyperlipidemia, unspecified; Z98.61 Coronary angioplasty status; Q21.10 Atrial septal defect, unspecified; R06.09 Other forms of dyspnea
CPT/HCPCS: 36415; 83735; 83880; 84439; 84443

== ENCOUNTER 2024-04-14 12:24 | Outpatient (CLI) | payer MEDICARE, SELFPAY ==
[2017-05-16 09:58] VITALS: BMI 30.9
[2024-04-14 12:28] VITALS: BP 135/84; PULSE 72; RESP 16; TEMP 36.2; O2SAT 96
[2024-04-14] MEDS: Mepolizumab 100 MG VIAL SC (13:03)
== END 2024-04-14 23:59 | disposition home or self-care (01) ==
LOC: MEDOUTP 12:24
PROVIDERS: PCP Family Medicine; Referring Provider Nurse Practitioner Acute Care; Visit Provider Nurse Practitioner Acute Care
DX: J45.50 Severe persistent asthma, uncomplicated (principal)
CPT/HCPCS: 96372; J2182

== ENCOUNTER → 2024-05-03 | Outpatient (CLI) | payer MEDICARE, SELFPAY ==
[2017-05-16 09:58] VITALS: BMI 30.9
--- NOTE | 2024-05-03 07:47 | ECHOCS_ITS ---
Reason For Study: DYSPNEA Procedure This was a 2D Doppler, Color Flow transthoracic echocardiogram. The study was technically difficult. Contrast injection was performed. Exam performed in department. Left Ventricle Normal LV size. Mild concentric left ventricular hypertrophy. Estimated LVEF 55%. Inferior hypokinesis. Normal diastology for age. Right Ventricle Mildly dilated RV. Mild RV systolic dysfunction. Atria The left and right atria are normal. Mitral Valve Mild (1+) mitral valve insufficiency. Tricuspid Valve The tricuspid valve is not well visualized. Aortic Valve Trisinus/trileaflet aortic valve. Pulmonic Valve Trivial pulmonic valve insufficiency. Great Vessels Mildly dilated aortic root. Pericardium/Pleural No pericardial effusion. Medication 22 gauge I.V. with prn adaptor inserted into left arm. Diluted definity 3.5ml given slow IV push to enhance endocardial definition. MMode/2D Measurements & Calculations LVIDd: 5.0 cm IVSd: 1.2 cm LVOT diam: 2.3 cm LVIDs: 3.3 cm LVPWd: 1.0 cm RVDd: 4.4 cm FS: 34.9 % LVOT area: 4.3 cm2 asc Aorta Diam: 3.7 cm LAV(MOD-bp): 37.8 ml LVAd ap4: 34.0 cm2 LAV(MOD-bp) Indexed: 16.7 ml/m2 LVLd ap4: 7.7 cm LAV(MOD-sp2): 45.1 ml EDV(MOD-sp4): 123.1 ml LAV(MOD-sp4): 31.1 ml EDV(sp4-el): 127.4 ml LVAs ap4: 21.6 cm2 LVLs ap4: 6.8 cm ESV(MOD-sp4): 55.0 ml ESV(sp4-el): 58.4 ml EF(MOD-sp4): 55.3 % EF(sp4-el): 54.2 % LVAd ap2: 35.4 cm2 SV(MOD-sp4): 68.1 ml SV(MOD-sp2): 67.6 ml LVLd ap2: 7.7 cm EDV(MOD-sp2): 131.0 ml EDV(sp2-el): 137.5 ml LVAs ap2: 23.4 cm2 LVLs ap2: 7.0 cm ESV(MOD-sp2): 63.4 ml ESV(sp2-el): 66.3 ml EF(MOD-sp2): 51.6 % SV(sp4-el): 69.0 ml Ao sinus diam: 4.[address] Junction: 3.0 cm LA dimension(2D): 3.2 cm LA A4 area: 13.5 cm2 RA A4 area: 16.8 cm2 TAPSE: 2.2 cm Time Measurements MV dec time: 0.32 sec Doppler Measurements & Calculations MV E max abdirizak: 44.4 cm/sec Lat Peak E' Abdirizak: 9.9 cm/sec Med Peak E' Abdirizak: 8.9 cm/sec MV A max abdirizak: 52.4 cm/sec E/E' lat: 4.5 E/E' med: 5.0 MV E/A: 0.85 MV dec slope: 138.3 cm/sec2 Ao V2 max: 119.9 cm/sec LV V1 max: 87.4 cm/sec Ao max P.7 mmHg LV V1 max P.1 mmHg Ao V2 mean: 90.2 cm/sec LV V1 mean P.9 mmHg Ao mean P.5 mmHg LV V1 mean: 65.8 cm/sec Ao V2 VTI: 23.7 cm LV V1 VTI: 15.8 cm AV (velocity ratio): 0.67 GIOVANNY(I,D): 2.9 cm2 GIOVANNY(V,D): 3.1 cm2 SV(LVOT): 67.7 ml PA V2 max: 111.0 cm/sec PA max PG (full): 2.7 mmHg ECHO/Echo Complete W/ Contrast Interpretation Summary The study was technically difficult. Mild concentric left ventricular hypertrophy. Estimated LVEF 55%. Inferior hypokinesis. Normal diastology for age. Mildly dilated RV. Mild RV systolic dysfunction. Mildly dilated aortic root. Ordering Physician: Yoan Leal Referring Physician: Yoan Leal Performed By: Maryam Patricio RDCS
== END | disposition home or self-care (01) ==
PROVIDERS: PCP Family Medicine; Referring Provider Nurse Practitioner Family; Visit Provider Nurse Practitioner Family
DX: I10 Essential (primary) hypertension (principal); E78.5 Hyperlipidemia, unspecified; Z95.5 Presence of coronary angioplasty implant and graft; Q21.12 Patent foramen ovale; R06.02 Shortness of breath
CPT/HCPCS: 93225; 93226; 93306; Q9957; A4216; C8929

== ENCOUNTER 2024-05-13 09:28 | Outpatient (CLI) | payer MEDICARE, SELFPAY ==
[2017-05-16 09:58] VITALS: BMI 30.9
[2024-05-13 09:34] VITALS: BP 132/90; PULSE 72; RESP 16; TEMP 35.6; O2SAT 96; BMI 29.7
[2024-05-13] MEDS: Mepolizumab 100 MG VIAL SC (09:44)
== END 2024-05-13 23:59 | disposition home or self-care (01) ==
LOC: MEDOUTP 09:28
PROVIDERS: PCP Family Medicine; Referring Provider Nurse Practitioner Acute Care; Visit Provider Nurse Practitioner Acute Care
DX: J45.50 Severe persistent asthma, uncomplicated (principal)
CPT/HCPCS: 96372; J2182

== ENCOUNTER 2024-06-11 08:56 | Outpatient (CLI) | payer MEDICARE, SELFPAY ==
[2017-05-16 09:58] VITALS: BMI 30.9
[2024-06-11 09:04] VITALS: BMI 29.7
[2024-06-11 09:13] VITALS: BP 126/97; PULSE 48; RESP 16; TEMP 35.5; O2SAT 98
--- OUTSIDE RECORDS SUMMARY | 2024-06-11 09:20 | XMS RPT_ITS | CCD ---
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 Phone YOUSUF JEWELL Unavailable Unavailable YOUSUF JEWELL Unavailable Unavailable YOUSUF JEWELL Unavailable Vilma Snow MD Primary Care Provider Vilma Snow MD Primary Care Provider Vilma [...] sources) chlorzoxazone; Translations: [CHLORZOXAZONE] Drug Allergy 03-11-2006 [facility] Rep[facility] Medications Current Medications Medication Drug Class(es) Dates Sig (Normalized) Sig (Original) [id number] 200 actuat albuterol 0.09 mg/actuat metered dose [...] Coronary arteriosclerosis; Translations: [Atherosclerotic heart disease of [place] coronary artery without angina pectoris] Onset: 7 [...] sources) Long-term current use of anticoagulant; 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 No medication changes made at that time. ECHO completed and EF: 55%. Per patient wore a heart monitor and he is skipping some beats. Will be having repeat heart monitor over night again. Reports he will be doing this next week Dyspnea/LESLY: following with [facility] pulmnology with last visit on 2024. [...] 4.91 Hemoglobin (more content not included)... Normal [facility] CBC W Auto Differential pane l (Bld)on 05-24-2024 Basophils (Bld) [#/Vol] 0.04 10*3/uL Normal <0.11 [facility] Comment on above: Order Comment: Speci men Type: BLOOD SPECIMEN Ordering Facility: [facility] Address: [address] [place], [place] [address], [place] [address] Performed By: #### 5 7021-8 #### [facility] CLIA [id number] [address] [place] [address] [place] Basophils/100 WBC (Bld) 0.7 % Normal [facility] Comment on above: Order Comment: Speci men Type: BLOOD SPECIMEN Ordering Facility: [facility] Address: [address] [place] [address] Performed By: #### 5 7021-8 #### [facility] CLIA [id number] [address] [place] [address] [place] Differential cell count method Nom (Bld) Auto Normal [facility] Comment on above: Order Comment: Speci men Type: BLOOD SPECIMEN Ordering Facility: [facility] Address: [address] [place] [address] Performed By: #### 5 7021-8 #### [facility] CLIA [id number] [address] [place] [address] [place] Eosinophils (Bld) [#/Vol] 0.05 10*3/uL Normal <0.46 [facility] Comment on above: Order Comment: Speci men Type: BLOOD SPECIMEN Ordering Facility: [facility] Address: [address] [place] [address] Performed By: #### 5 7021-8 #### [facility] CLIA [id number] [address] [place] [address] [place] Eosinophils/100 WBC (Bld) 0.9 % Normal [facility] Comment on above: Order Comment: Speci men Type: BLOOD SPECIMEN Ordering Facility: [facility] Address: [address] [place] [address] Performed By: #### 5 7021-8 #### [facility] CLIA [id number] [address] [place] [address] [place] Erythrocyte distribution width (RBC) [Ratio] 13.2 % Normal 11.5-15.0 [facility] Comment on above: Order Comment: Speci men Type: BLOOD SPECIMEN Ordering Facility: [facility] Address: [address] [place], [place] [address] Performed By: #### 5 7021-8 #### [facility] CLIA [id number] [address] [place] [address] [place] Hematocrit (Bld) [Volume fraction] 45.9 % Normal 39.0-51.0 [facility] Comment on above: Order Comment: Speci men Type: BLOOD SPECIMEN Ordering Facility: [facility] Address: [address] [place] [address] Performed By: #### 5 7021-8 #### [facility] CLIA [id number] [address] [place] [address] [place] Hemoglobin (Bld) [Mass/Vol] 15.9 g/dL Normal 13.0-17.0 [facility] Comment on above: Order Comment: Speci men Type: BLOOD SPECIMEN Ordering Facility: [facility] Address: [address] [place] [address] Performed By: #### 5 7021-8 #### [facility] CLIA [id number] [address] [place] [address] [place] Immature granulocytes (Bld) [#/Vol] 0.06 10*3/uL Normal <0.10 [facility] Comment on above: Order Comment: Speci men Type: BLOOD SPECIMEN Ordering Facility: [facility] Address: [address] [place], [place] [address] Performed By: #### 5 7021-8 #### [facility] CLIA [id number] [address] [place] [address] [place] Immature granulocytes/100 WBC (Bld) 1.0 % Normal [facility] Comment on above: Order Comment: Speci men Type: BLOOD SPECIMEN Ordering Facility: [facility] Address: [address] [place], [place] [address] Performed By: #### 5 7021-8 #### [facility] CLIA [id number] [address] [place] [address] [place] Lymphocytes (Bld) [#/Vol] 1.99 10*3/uL Normal 1.00-4.00 [facility] Comment on above: Order Comment: Speci men Type: BLOOD SPECIMEN Ordering Facility: [facility] Address: [address] [place], [place] [address] Performed By: #### 5 7021-8 #### [facility] CLIA [id number] [address] [place] [address] [place] Lymphocytes/100 WBC (Bld) 34.5 % Normal [facility] Comment on above: Order Comment: Speci men Type: BLOOD SPECIMEN Ordering Facility: [facility] Address: [address] [place], [place] [address] Performed By: #### 5 7021-8 #### [facility] CLIA [id number] [address] [place] [address] [place] MCH (RBC) [Entitic mass] 32.4 pg Normal 26.0-34.0 [facility] Comment on above: Order Comment: Speci men Type: BLOOD SPECIMEN Ordering Facility: [facility] Address: [address] [place] [address] Performed By: #### 5 7021-8 #### [facility] CLIA [id number] [address] [place] [address] [place] MCHC (RBC) [Mass/Vol] 34.6 g/dL Normal 30.5-36.0 [facility] Comment on above: Order Comment: Speci men Type: BLOOD SPECIMEN Ordering Facility: [facility] Address: [address] [place] [address] Performed By: #### 5 7021-8 #### [facility] CLIA [id number] [address] [place] [address] [place] MCV (RBC) [Entitic vol] 93.5 fL Normal 80.0-100.0 [facility] Comment on above: Order Comment: Speci men Type: BLOOD SPECIMEN Ordering Facility: [facility] Address: [address] [place] [address] Performed By: #### 5 7021-8 #### [facility] CLIA [id number] [address] [place] [address] [place] Monocytes (Bld) [#/Vol] 0.65 10*3/uL Normal <0.87 [facility] Comment on above: Order Comment: Speci men Type: BLOOD SPECIMEN Ordering Facility: [facility] Address: [address] [place] [address] Performed By: #### 5 7021-8 #### [facility] CLIA [id number] [address] [place] [address] [place] Monocytes/100 WBC (Bld) 11.3 % Normal [facility] Comment on above: Order Comment: Speci men Type: BLOOD SPECIMEN Ordering Facility: [facility] Address: [address] [place] [address] Performed By: #### 5 7021-8 #### [facility] CLIA [id number] [address] [place] [address] [place] Neutrophils (Bld) [#/Vol] 2.98 10*3/uL Normal 1.45-7.50 [facility] Comment on above: Order Comment: Speci men Type: BLOOD SPECIMEN Ordering Facility: [facility] Address: [address] [place] [address] Performed By: #### 5 7021-8 #### [facility] CLIA [id number] [address] [place] [address] [place] Neutrophils/100 WBC (Bld) 51.6 % Normal [facility] Comment on above: Order Comment: Speci men Type: BLOOD SPECIMEN Ordering Facility: [facility] Address: [address] [place] [address] Performed By: #### 5 7021-8 #### [facility] CLIA [id number] [address] [place] [address] [place] Nucleated RBC (Bld) [#/Vol] 10*3/uL Normal <0.01 [facility] Comment on above: Order Comment: Speci men Type: BLOOD SPECIMEN Ordering Facility: [facility] Address: [address] [place] [address] Performed By: #### 5 7021-8 #### [facility] CLIA [id number] [address] [place] [address] [place] Nucleated RBC/100 WBC (Bld) [Ratio] 0.0 /100 WBC Normal [facility] Comment on above: Order Comment: Speci men Type: BLOOD SPECIMEN Ordering Facility: [facility] Address: [address] [place] [address] Performed By: #### 5 7021-8 #### [facility] CLIA [id number] [address] [place] [address] [place] Platelet mean volume (Bld) [Entitic vol] 8.5 fL Low 9.0-12.7 [facility] Comment on above: Order Comment: Speci men Type: BLOOD SPECIMEN Ordering Facility: [facility] Address: [address] [place] [address] Performed By: #### 5 7021-8 #### [facility] CLIA [id number] [address] [place] [address] [place] Platelets (Bld) [#/Vol] 131 10*3/uL Low 150-400 [facility] Comment on above: Order Comment: Speci men Type: BLOOD SPECIMEN Ordering Facility: [facility] Address: [address] [place] [address] Performed By: #### 5 7021-8 #### [facility] [id number] [address] [place] [address] [place] RBC (Bld) [#/Vol] 4.91 10*6/uL Normal 4.20-6.00 [facility] Comment on above: Order Comment: Speci men Type: BLOOD SPECIMEN Ordering Facility: [facility] Address: [address] [place] [address] Performed By: #### 5 7021-8 #### [facility] CLIA [id number] [address] [place] [address] [place] WBC (Bld) [#/Vol] 5.77 10*3/uL Normal 3.70-11.00 [facility] Comment on above: Order Comment: Speci men Type: BLOOD SPECIMEN Ordering Facility: [facility] Address: [address] [place] [address] Performed By: #### 5 7021-8 #### [facility] [id number] [address] [place] [address] [place] Comprehensive metabolic 2000 panelon 05-24-2024 Albumin [Mass/Vol] 4.0 g/dL Normal 3.9-4.9 [facility] Comment on above: Order Comment: Speci men Type: BLOOD SPECIMEN Ordering Facility: [facility] Address: [address] [place] [address] Performed By: #### 5 7021-8 #### [facility] [id number] [address] [place] [address] [place] ALP [Catalytic activity/Vol] 145 U/L High 38-113 [facility] Comment on above: Order Comment: Speci men Type: BLOOD SPECIMEN Ordering Facility: [facility] Address: [address] [place] [address] Performed By: #### 5 7021-8 #### [facility] CLIA [id number] [address] [place] [address] [place] ALT [Catalytic activity/Vol] 21 U/L Normal 10-54 [facility] Comment on above: Order Comment: Speci men Type: BLOOD SPECIMEN Ordering Facility: [facility] Address: [address] [place] [address] Performed By: #### 5 7021-8 #### [facility] CLIA [id number] [address] [place] [address] [place] Anion gap [Moles/Vol] 10 mmol/L Normal 8-15 [facility] Comment on above: Order Comment: Speci men Type: BLOOD SPECIMEN Ordering Facility: [facility] Address: [address] [place] [address] Performed By: #### 5 7021-8 #### [facility] CLIA [id number] [address] [place] [address] [place] AST [Catalytic activity/Vol] 20 U/L Normal 14-40 [facility] Comment on above: Order Comment: Speci men Type: BLOOD SPECIMEN Ordering Facility: [facility] Address: [address] [place] [address] Performed By: #### 5 7021-8 #### [facility] CLIA [id number] [address] [place] [address] [place] Bilirubin [Mass/Vol] 0.8 mg/dL Normal 0.2-1.3 [facility] Comment on above: Order Comment: Speci men Type: BLOOD SPECIMEN Ordering Facility: [facility] Address: [address] [place] [address] Performed By: #### 5 7021-8 #### [facility] CLIA [id number] [address] [place] [address] [place] Calcium [Mass/Vol] 9.1 mg/dL Normal 8.5-10.2 [facility] Comment on above: Order Comment: Speci men Type: BLOOD SPECIMEN Ordering Facility: [facility] Address: [address] [place] [address] Performed By: #### 5 7021-8 #### [facility] CLIA [id number] [address] [place] [address] [place] Chloride [Moles/Vol] 106 mmol/L Normal 98-107 [facility] Comment on above: Order Comment: Speci men Type: BLOOD SPECIMEN Ordering Facility: [facility] Address: [address] [place] [address] Performed By: #### 5 7021-8 #### [facility] CLIA [id number] [address] [place] [address] [place] CO2 [Moles/Vol] 22 mmol/L Normal 22-30 [facility] Comment on above: Order Comment: Speci men Type: BLOOD SPECIMEN Ordering Facility: [facility] Address: [address] [place] [address] Performed By: #### 5 7021-8 #### [facility] CLIA [id number] [address] [place] [address] [place] Creatinine [Mass/Vol] 0.88 mg/dL Normal 0.73-1.22 [facility] Comment on above: Order Comment: Speci men Type: BLOOD SPECIMEN Ordering Facility: [facility] Address: [address] [place] [address] Performed By: #### 5 7021-8 #### [facility] CLIA [id number] [address] [place] [address] [place] Creatinine and Glomerular filtration rate.predicted panel (S/P/Bld) 93 mL/min/1.73m??? Normal >=60 [facility] Comment on above: Order Comment: Speci men Type: BLOOD SPECIMEN Ordering Facility: [facility] Address: [address] [place] [address] Result Comment: Lupe mated Glomerular Filtration Rate [...] GFR. Performed By: #### 5 7021-8 #### [facility] CLIA [id number] [address] [place] [address] [place] Glucose [Mass/Vol] 108 mg/dL High 74-99 [facility] Comment on above: Order Comment: David olivo Type: BLOOD SPECIMEN Ordering Facility: [facility] Address: [address] [place], [place] [address] Result Comment: The [place] [employer] (ADA) provides guidance for cutoff [...] Standards of Medical Care in Diabetes 2016, [place] [employer]. Diabetes Care. 2016.39(Suppl 1). Performed By: #### 5 7021-8 #### [facility] CLIA [id number] [address] [place] [address] [place] Potassium [Moles/Vol] 3.9 mmol/L Normal 3.7-5.1 [facility] Comment on above: Order Comment: David olivo Type: BLOOD SPECIMEN Ordering Facility: [facility] Address: [address] [place] [address] Performed By: #### 5 7021-8 #### [facility] CLIA [id number] [address] [place] [address] [place] Protein [Mass/Vol] 6.8 g/dL Normal 6.3-8.0 [facility] Comment on above: Order Comment: Speci men Type: BLOOD SPECIMEN Ordering Facility: [facility] Address: [address] [place], [place] [address] Performed By: #### 5 7021-8 #### [facility] CLIA [id number] [address] [place] [address] OF [facility] Sodium [Moles/Vol] 138 mmol/L Normal 136-144 [facility] Comment on above: Order Comment: Speci men Type: BLOOD SPECIMEN Ordering Facility: [facility] Address: [address] [place] [address] Performed By: #### 5 7021-8 #### [facility] CLIA [id number] [address] [place], [place] [address] [place] Urea nitrogen [Mass/Vol] 23 mg/dL Normal 9-24 [facility] Comment on above: Order Comment: Speci men Type: BLOOD SPECIMEN Ordering Facility: [facility] Address: [address] [place] [address] Performed By: #### 5 7021-8 #### [facility] CLIA [id number] [address] [place] [address] OF [facility] MACI HOWARD ([id number]) 1955 M Date Time Provider Department 01/28/24 [...] Status:Closed by SERA ETIENNE on 01/28/24 Normal [facility] CBC W Ordered Manual Differe ntial panel (Bld)on 01-26-2024 Basophils (Bld) [#/Vol] 0.03 10*3/uL Normal <0.11 [facility] Comment on above: Order Comment: Speci men Type: BLOOD SPECIMEN Ordering Facility: [facility] Address: [address] [place] [address] [place] [address] Performed By: #### 5 7782-5 #### [facility] CLIA [id number] [address] [place] [address] [place] #### JUDY [id number] #### [facility] CLIA [id number] [address] [place] [address] [place] Basophils/100 WBC (Bld) 0.7 % Normal [facility] Comment on above: Order Comment: Speci men Type: BLOOD SPECIMEN Ordering Facility: [facility] Address: [address] [place] [address] Performed By: #### 5 7782-5 #### [facility] CLIA [id number] [address] [place] [address] [place] #### JUDY [id number] #### [facility] CLIA [id number] [address] [place] [address] [place] Differential cell count method Nom (Bld) Auto Normal [facility] Comment on above: Order Comment: Speci men Type: BLOOD SPECIMEN Ordering Facility: [facility] Address: [address] [place] [address] Performed By: #### 5 7782-5 #### [facility] CLIA [id number] [address] [place] [address] [place] #### JUDY [id number] #### [facility] CLIA [id number] [address] [place] [address] [place] Eosinophils (Bld) [#/Vol] 0.03 10*3/uL Normal <0.46 [facility] Comment on above: Order Comment: Speci men Type: BLOOD SPECIMEN Ordering Facility: [facility] Address: [address] [place] [address] Performed By: #### 5 7782-5 #### [facility] CLIA [id number] [address] [place] [address] [place] #### STALMA DELIA, [id number] #### [facility] CLIA [id number] [address] [place] [address] [place] Eosinophils/100 WBC (Bld) 0.7 % Normal [facility] Comment on above: Order Comment: Speci men Type: BLOOD SPECIMEN Ordering Facility: [facility] Address: [address] [place] [address] Performed By: #### 5 7782-5 #### [facility] CLIA [id number] [address] [place] [address] [place] #### JUDY, [id number] #### [facility] CLIA [id number] [address] [place] [address] [place] Erythrocyte distribution width (RBC) [Ratio] 13.1 % Normal 11.5-15.0 [facility] Comment on above: Order Comment: Speci men Type: BLOOD SPECIMEN Ordering Facility: [facility] Address: [address] [place] [address] Performed By: #### 5 7782-5 #### [facility] CLIA [id number] [address] [place] [address] [place] #### JUDY [id number] #### [facility] CLIA [id number] [address] [place] [address] [place] Hematocrit (Bld) [Volume fraction] 45.4 % Normal 39.0-51.0 [facility] Comment on above: Order Comment: Speci men Type: BLOOD SPECIMEN Ordering Facility: [facility] Address: [address] [place] [address] Performed By: #### 5 7782-5 #### [facility] CLIA [id number] [address] [place] [address] [place] #### JUDY [id number] #### [facility] CLIA [id number] [address] [place] [address] [place] Hemoglobin (Bld) [Mass/Vol] 15.6 g/dL Normal 13.0-17.0 [facility] Comment on above: Order Comment: Speci men Type: BLOOD SPECIMEN Ordering Facility: [facility] Address: [address] [place] [address] Performed By: #### 5 7782-5 #### [facility] CLIA [id number] [address] [place] [address] [place] #### JUDY [id number] #### [facility] CLIA [id number] [address] [place] [address] [place] Immature granulocytes (Bld) [#/Vol] 0.04 10*3/uL Normal <0.10 [facility] Comment on above: Order Comment: Speci men Type: BLOOD SPECIMEN Ordering Facility: [facility] Address: [address] [place] [address] Performed By: #### 5 7782-5 #### [facility] CLIA [id number] [address] [place] [address] [place] #### JUDY [id number] #### [facility] CLIA [id number] [address] [place] [address] [place] Immature granulocytes/100 WBC (Bld) 0.9 % Normal [facility] Comment on above: Order Comment: Speci men Type: BLOOD SPECIMEN Ordering Facility: [facility] Address: [address] [place] [address] Performed By: #### 5 7782-5 #### [facility] CLIA [id number] [address] [place] [address] [place] #### JUDY [id number] #### [facility] CLIA [id number] [address] [place] [address] [place] Lymphocytes (Bld) [#/Vol] 1.44 10*3/uL Normal 1.00-4.00 [facility] Comment on above: Order Comment: Speci men Type: BLOOD SPECIMEN Ordering Facility: [facility] Address: [address] [place] [address] Performed By: #### 5 7782-5 #### [facility] CLIA [id number] [address] [place] [address] [place] #### JUDY [id number] #### [facility] CLIA [id number] [address] [place] [address] [place] Lymphocytes/100 WBC (Bld) 33.0 % Normal [facility] Comment on above: Order Comment: Speci men Type: BLOOD SPECIMEN Ordering Facility: [facility] Address: [address] [place] [address] Performed By: #### 5 7782-5 #### [facility] CLIA [id number] [address] [place] [address] [place] [place] #### JUDY [id number] #### [facility] CLIA [id number] [address] [place] [address] [place] MCH (RBC) [Entitic mass] 32.1 pg Normal 26.0-34.0 [facility] Comment on above: Order Comment: Speci men Type: BLOOD SPECIMEN Ordering Facility: [facility] Address: [address] [place] [address] Performed By: #### 5 7782-5 #### [facility] CLIA [id number] [address] [place] [address] [place] #### JUDY [id number] #### [facility] CLIA [id number] [address] [place] [address] [place] MCHC (RBC) [Mass/Vol] 34.4 g/dL Normal 30.5-36.0 [facility] Comment on above: Order Comment: Speci men Type: BLOOD SPECIMEN Ordering Facility: [facility] Address: [address] [place] [address] Performed By: #### 5 7782-5 #### [facility] CLIA [id number] [address] [place] [address] [place] #### STALMA DELIA, [id number] #### [facility] CLIA [id number] [address] [place] [address] [place] MCV (RBC) [Entitic vol] 93.4 fL Normal 80.0-100.0 [facility] Comment on above: Order Comment: Speci men Type: BLOOD SPECIMEN Ordering Facility: [facility] Address: [address] [place] [address] Performed By: #### 5 7782-5 #### [facility] CLIA [id number] [address] [place] [address] [place] #### STALMA DELIA, [id number] #### [facility] CLIA [id number] [address] [place] [address] [place] Monocytes (Bld) [#/Vol] 0.52 10*3/uL Normal <0.87 [facility] Comment on above: Order Comment: Speci men Type: BLOOD SPECIMEN Ordering Facility: [facility] Address: [address] [place] [id number] Performed By: #### 5 7782-5 #### [facility] CLIA [id number] [address] [place] [address] [place] #### STALMA DELIA, [id number] #### [facility] CLIA [id number] [address] [place] [address] [place] Monocytes/100 WBC (Bld) 11.9 % Normal [facility] Comment on above: Order Comment: Speci men Type: BLOOD SPECIMEN Ordering Facility: [facility] Address: [address] [place] [address] Performed By: #### 5 7782-5 #### [facility] CLIA [id number] [address] [place] [address] [place] #### STFRABHAY, [id number] #### [facility] CLIA [id number] [address] [place] [address] [place] Neutrophils (Bld) [#/Vol] 2.31 10*3/uL Normal 1.45-7.50 [facility] Comment on above: Order Comment: Speci men Type: BLOOD SPECIMEN Ordering Facility: [facility] Address: [address] [place] [address] Performed By: #### 5 7782-5 #### [facility] CLIA [id number] [address] [place] [address] [place] #### STALMA DELIA, [id number] #### [facility] CLIA [id number] [address] [place] [address] [place] Neutrophils/100 WBC (Bld) 52.8 % Normal [facility] Comment on above: Order Comment: Speci men Type: BLOOD SPECIMEN Ordering Facility: [facility] Address: [address] [place] [address] Performed By: #### 5 7782-5 #### [facility] CLIA [id number] [address] [place] [address] [place] #### STFRABHAY, [id number] #### [facility] CLIA [id number] [address] [place] [address] [place] Nucleated RBC (Bld) [#/Vol] 10*3/uL Normal <0.01 [facility] Comment on above: Order Comment: Speci men Type: BLOOD SPECIMEN Ordering Facility: [facility] Address: [address] [place] [address] Performed By: #### 5 7782-5 #### [facility] CLIA [id number] [address] [place] [address] [place] #### JUDY [id number] #### [facility] CLIA [id number] [address] [place] [address] [place] Nucleated RBC/100 WBC (Bld) [Ratio] 0.0 /100 WBC Normal [facility] Comment on above: Order Comment: Speci men Type: BLOOD SPECIMEN Ordering Facility: [facility] Address: [address] [place] [address] Performed By: #### 5 7782-5 #### [facility] CLIA [id number] [address] [place] [address] [place] #### JUDY [id number] #### [facility] CLIA [id number] [address] [place] [address] [place] Platelet mean volume (Bld) [Entitic vol] 8.9 fL Low 9.0-12.7 [facility] Comment on above: Order Comment: Speci men Type: BLOOD SPECIMEN Ordering Facility: [facility] Address: [address] [place] [address] Performed By: #### 5 7782-5 #### [facility] CLIA [id number] [address] [place] [address] [place] #### STALMA DELIA, [id number] #### [facility] CLIA [id number] [address] [place] [address] [place] Platelets (Bld) [#/Vol] 131 10*3/uL Low 150-400 [facility] Comment on above: Order Comment: Speci men Type: BLOOD SPECIMEN Ordering Facility: [facility] Address: [address] [place] [address] Result Comment: No c lot detected. Performed By: #### 5 7782-5 #### [facility] CLIA [id number] [address] [place] [address] [place] #### JUDY [id number] #### [facility] CLIA [id number] [address] [place] [address] [place] RBC (Bld) [#/Vol] 4.86 10*6/uL Normal 4.20-6.00 [facility] Comment on above: Order Comment: Speci men Type: BLOOD SPECIMEN Ordering Facility: [facility] Address: [address] [place] [address] Performed By: #### 5 7782-5 #### [facility] CLIA [id number] [address] [place] [address] [place] #### JUDY [id number] #### [facility] CLIA [id number] [address] [place] [address] [place] WBC (Bld) [#/Vol] 4.37 10*3/uL Normal 3.70-11.00 [facility] Comment on above: Order Comment: Speci men Type: BLOOD SPECIMEN Ordering Facility: [facility] Address: [address] [place] [address] Performed By: #### 5 7782-5 #### [facility] CLIA [id number] [address] [place] [address] [place] #### JUDY, [id number] #### [facility] CLIA [id number] [address] [place] [address] [place] HCV Ab Ser Qlon 01-26-2024 HCV Ab Ql (S) Negative Normal Negative [facility] Comment on above: Order Comment: Speci men Type: BLOOD SPECIMEN Ordering Facility: [facility] Address: [address] [place] [address] Result Comment: The result suggests no evidence of active infection with Hepatitis C virus. Should recent infection be suspected, repeat testing may be considered 4-6 weeks after this draw. Performed By: #### 5 7021-8 #### [facility] CLIA [id number] [address] [place] [address] [place] HIV 1+2 Ab IA Qlon HIV 1 and 2 Ab IA.rapid Nom (S/P/Bld) Normal [facility] Comment on above: Order Comment: Speci men Type: BLOOD SPECIMEN Ordering Facility: [facility] Address: [address] [place] [address] Result Comment: Test not indicated. Performed By: #### 3 1201-7 #### [facility] CLIA [id number] [address] [place] [address] [place] HIV 1+2 Ab+HIV1 p24 Ag IA Ql Non-Reactive Normal Nonreactive [facility] Comment on above: Order Comment: Speci men Type: BLOOD SPECIMEN Ordering Facility: [facility] Address: [address] [place] [address] Performed By: #### 3 1201-7 #### [facility] CLIA [id number] [address] [place] [address] [place] HIV immunoassay testing algorithm interpretation (S/P/Bld) [Interp] Normal [facility] Comment on above: Order Comment: Speci men Type: BLOOD SPECIMEN Ordering Facility: [facility] Address: [address] [place] [address] Result Comment: No e vidence of HIV-1 or HIV-2 infection. Should recent infection be suspected, repeat testing may be considered 2-3 weeks after this draw. [place] Rev. Code 3701.243(E): This information has been [...] diagnoses. Performed By: #### 3 1201-7 #### [facility] CLIA [id number] [address] [place] [address] [place] PATHOLOGIST INTERPRETATION C BC/DIFFon 01-26-2024 Primary Therapist review Samm (Unsp spec) [Interp] Reviewed by Yelitza Castro MD Normal [facility] Comment on above: Order Comment: Speci men Type: BLOOD SPECIMEN Ordering Facility: [facility] Address: [address] [place] [address] Performed By: #### 5 7782-5 #### [facility] CLIA [id number] [address] [place] [address] [place] #### STALMA DELIA, [id number] #### [facility] CLIA [id number] [address] [place] [address] [place] STAFF REVIEW, [id number] Normal [facility] Comment on above: Order Comment: Speci men Type: BLOOD SPECIMEN Ordering Facility: [facility] Address: [address] [place] [address] Result Comment: Thro mbocytopenia Performed By: #### 5 7782-5 #### [facility] CLIA [id number] [address] [place] [address] [place] #### STFREV, [id number] #### [facility] CLIA [id number] [address] [place] [address] [place] RBC MORPHOLOGYon 01-26-2024 Ovalocytes LM Ql (Bld) Few Normal [facility] Comment on above: Order Comment: Speci men Type: BLOOD SPECIMEN Ordering Facility: [facility] Address: [address] [place] [address] Performed By: #### 5 7782-5 #### [facility] CLIA [id number] [address] [place] [address] [place] #### JUDY [id number] #### [facility] CLIA [id number] [address] [place] [address] [place] Platelets Estimate (Bld) [#/Vol] Decreased Normal [facility] Comment on above: Order Comment: Speci men Type: BLOOD SPECIMEN Ordering Facility: [facility] Address: [address] [place] [address] Performed By: #### 5 7782-5 #### [facility] CLIA [id number] [address] [place] [address] [place] #### JUDY [id number] #### [facility] CLIA [id number] [address] [place] [address] [place] RBC morphology finding Nom (Bld) Reviewed: see results of individual morphologies Normal [facility] Comment on above: Order Comment: Speci men Type: BLOOD SPECIMEN Ordering Facility: [facility] Address: [address] [place] [address] Performed By: #### 5 7782-5 #### [facility] CLIA [id number] [address] [place] [address] [place] #### JUDY, [id number] #### [facility] CLIA [id number] [address] [place] [address] [place] Jason 12-24-2023 ANALYN Telephone (FAMPWS) MACI HOWARD ([id number]) 1955 M Date Time Provider Department 12/24/23 [...] WITH CBC AND DIFF [SQSTREV] Order #: [id number] FUTURE HIV 1/2 COMBO WITH REFLEX TO DIFFERENTIATION [SQHIV12] Order #: [id number] FUTURE HEPATITIS C ANTIBODY IA WITH CONFIRMATION [[id number]] Order #: [id number] FUTURE Prescriptions as of 12/24/2023 - clopidogrel [...] Status:Closed by GENNY VERGARA on 12/24/23 Normal [facility] ALKALINE PHOSPHATASE ISOENZY MES (P)on 12-20-2023 ALK PHOS BONE % 28.9 % Normal 10.7-68.3 [facility] Comment on above: Order Comment: Speci men Type: BLOOD SPECIMEN Ordering Facility: [facility] Address: [address] [place] [address] Performed By: #### 5 7021-8 #### [facility] [id number] [address] [place] [address] [place] ALK PHOS LIVER % 71.1 % Normal 26.0-86.2 [facility] Comment on above: Order Comment: Speci men Type: BLOOD SPECIMEN Ordering Facility: [facility] Address: [address] [place] [address] Performed By: #### 5 7021-8 #### [facility] CLIA [id number] [address] [place] [address] [place] BONE FRACTION 37.6 U/L Normal 12.9-52.6 [facility] Comment on above: Order Comment: Speci men Type: BLOOD SPECIMEN Ordering Facility: [facility] Address: [address] [place] [address] Performed By: #### 5 7021-8 #### [facility] CLIA [id number] [address] [place] [address] [place] INTESTINE FRACTION 0.0 U/L Normal 0.0-16.3 [facility] Comment on above: Order Comment: Speci men Type: BLOOD SPECIMEN Ordering Facility: [facility] Address: [address] [place] [address] Performed By: #### 5 7021-8 #### [facility] CLIA [id number] [address] [place] [address] [place] LIVER FRACTION 92.4 U/L High 16.0-69.3 [facility] Comment on above: Order Comment: Speci men Type: BLOOD SPECIMEN Ordering Facility: [facility] Address: [address] [place] [address] Performed By: #### 5 7021-8 #### [facility] [id number] [address] [place] [address] [place] Neutrophils/100 WBC (Bld) 0.0 % Normal 0.0-24.2 [facility] Comment on above: Order Comment: Speci men Type: BLOOD SPECIMEN Ordering Facility: [facility] Address: [address] [place] [address] Performed By: #### 5 7021-8 #### [facility] [id number] [address] [place] [address] [place] ALP SerPl-cCncon 12-20-2023 ALP [Catalytic activity/Vol] 130 U/L High 38-113 [facility] Comment on above: Order Comment: Speci men Type: BLOOD SPECIMEN Ordering Facility: [facility] Address: [address] [place] [address] Performed By: #### 5 7782-5 #### [facility] [id number] [address] [place] [address] [place] #### JUDY, [id number] #### [facility] CLIA [id number] [address] [place] [address] [place] [id number], [place] [address] [place] CBC W Auto Differential pane l (Bld)on 12-20-2023 Basophils (Bld) [#/Vol] 0.04 10*3/uL Normal <0.11 [facility] Comment on above: Order Comment: Speci men Type: BLOOD SPECIMEN Ordering Facility: [facility] Address: [address] [place] [address] Performed By: #### 5 7021-8 #### [facility] CLIA [id number] [address] [place] [address] [place] Basophils/100 WBC (Bld) 0.8 % Normal [facility] Comment on above: Order Comment: Speci men Type: BLOOD SPECIMEN Ordering Facility: [facility] Address: [address] [place] [address] Performed By: #### 5 7021-8 #### [facility] CLIA [id number] [address] [place] [address] [place] Differential cell count method Nom (Bld) Auto Normal [facility] Comment on above: Order Comment: Speci men Type: BLOOD SPECIMEN Ordering Facility: [facility] Address: [address] [place] [address] Performed By: #### 5 7021-8 #### [facility] CLIA [id number] [address] [place] [address] [place] Eosinophils (Bld) [#/Vol] 0.04 10*3/uL Normal <0.46 [facility] Comment on above: Order Comment: Speci men Type: BLOOD SPECIMEN Ordering Facility: [facility] Address: [address] [place] [address] Performed By: #### 5 7021-8 #### [facility] CLIA [id number] [address] [place] [address] [place] Eosinophils/100 WBC (Bld) 0.8 % Normal [facility] Comment on above: Order Comment: Speci men Type: BLOOD SPECIMEN Ordering Facility: [facility] Address: [address] [id number] Performed By: #### 5 7021-8 #### [facility] CLIA [id number] [address] [place] [address] [place] Erythrocyte distribution width (RBC) [Ratio] 13.2 % Normal 11.5-15.0 [facility] Comment on above: Order Comment: Speci men Type: BLOOD SPECIMEN Ordering Facility: [facility] Address: [address] [place] [address] Performed By: #### 5 7021-8 #### [facility] CLIA [id number] [address] [place] [address] [place] Hematocrit (Bld) [Volume fraction] 47.2 % Normal 39.0-51.0 [facility] Comment on above: Order Comment: Speci men Type: BLOOD SPECIMEN Ordering Facility: [facility] Address: [address] [place] [address] Performed By: #### 5 7021-8 #### [facility] CLIA [id number] [address] [place] [address] [place] Hemoglobin (Bld) [Mass/Vol] 16.1 g/dL Normal 13.0-17.0 [facility] Comment on above: Order Comment: Speci men Type: BLOOD SPECIMEN Ordering Facility: [facility] Address: [address] [place] [address] Performed By: #### 5 7021-8 #### [facility] CLIA [id number] [address] [place] [address] [place] Immature granulocytes (Bld) [#/Vol] 0.03 10*3/uL Normal <0.10 [facility] Comment on above: Order Comment: Speci men Type: BLOOD SPECIMEN Ordering Facility: [facility] Address: [address] [place] [address] Performed By: #### 5 7021-8 #### [facility] CLIA [id number] [address] [place] [address] [place] Immature granulocytes/100 WBC (Bld) 0.6 % Normal [facility] Comment on above: Order Comment: Speci men Type: BLOOD SPECIMEN Ordering Facility: [facility] Address: [address] [place] [address] Performed By: #### 5 7021-8 #### [facility] CLIA [id number] [address] [place] [address] [place] Lymphocytes (Bld) [#/Vol] 1.86 10*3/uL Normal 1.00-4.00 [facility] Comment on above: Order Comment: Speci men Type: BLOOD SPECIMEN Ordering Facility: [facility] Address: [address] [place] [address] Performed By: #### 5 7021-8 #### [facility] CLIA [id number] [address] [place] [address] [place] Lymphocytes/100 WBC (Bld) 35.2 % Normal [facility] Comment on above: Order Comment: Speci men Type: BLOOD SPECIMEN Ordering Facility: [facility] Address: [address] [place] [address] Performed By: #### 5 7021-8 #### [facility] CLIA [id number] [address] [place] [address] [place] MCH (RBC) [Entitic mass] 32.5 pg Normal 26.0-34.0 [facility] Comment on above: Order Comment: Speci men Type: BLOOD SPECIMEN Ordering Facility: [facility] Address: [address] [place] [address] Performed By: #### 5 7021-8 #### [facility] CLIA [id number] [address] [place] [address] [place] MCHC (RBC) [Mass/Vol] 34.1 g/dL Normal 30.5-36.0 [facility] Comment on above: Order Comment: Speci men Type: BLOOD SPECIMEN Ordering Facility: [facility] Address: [address] [place] [address] Performed By: #### 5 7021-8 #### [facility] CLIA [id number] [address] [place] [address] [place] MCV (RBC) [Entitic vol] 95.2 fL Normal 80.0-100.0 [facility] Comment on above: Order Comment: Speci men Type: BLOOD SPECIMEN Ordering Facility: [facility] Address: [address] [place] [address] Performed By: #### 5 7021-8 #### [facility] CLIA [id number] [address] [place] [address] [place] Monocytes (Bld) [#/Vol] 0.63 10*3/uL Normal <0.87 [facility] Comment on above: Order Comment: Speci men Type: BLOOD SPECIMEN Ordering Facility: [facility] Address: [address] [place] [address] Performed By: #### 5 7021-8 #### [facility] CLIA [id number] [address] [place] [address] [place] Monocytes/100 WBC (Bld) 11.9 % Normal [facility] Comment on above: Order Comment: Speci men Type: BLOOD SPECIMEN Ordering Facility: [facility] Address: [address] [place] [address] Performed By: #### 5 7021-8 #### [facility] CLIA [id number] [address] [place] [address] [place] Neutrophils (Bld) [#/Vol] 2.69 10*3/uL Normal 1.45-7.50 [facility] Comment on above: Order Comment: Speci men Type: BLOOD SPECIMEN Ordering Facility: [facility] Address: [address] [place] [address] Performed By: #### 5 7021-8 #### [facility] CLIA [id number] [address] [place] [address] [place] Neutrophils/100 WBC (Bld) 50.7 % Normal [facility] Comment on above: Order Comment: Speci men Type: BLOOD SPECIMEN Ordering Facility: [facility] Address: [address] [place] [address] Performed By: #### 5 7021-8 #### [facility] CLIA [id number] [address] [place] [address] [place] Nucleated RBC (Bld) [#/Vol] 10*3/uL Normal <0.01 [facility] Comment on above: Order Comment: Speci men Type: BLOOD SPECIMEN Ordering Facility: [facility] Address: [address] [place] [address] Performed By: #### 5 7021-8 #### [facility] CLIA [id number] [address] [place] [address] [place] Nucleated RBC/100 WBC (Bld) [Ratio] 0.0 /100 WBC Normal [facility] Comment on above: Order Comment: Speci men Type: BLOOD SPECIMEN Ordering Facility: [facility] Address: [address] [place] [address] Performed By: #### 5 7021-8 #### [facility] CLIA [id number] [address] [place] [address] [place] Platelet mean volume (Bld) [Entitic vol] 9.6 fL Normal 9.0-12.7 [facility] Comment on above: Order Comment: Speci men Type: BLOOD SPECIMEN Ordering Facility: [facility] Address: [address] [place] [address] Performed By: #### 5 7021-8 #### [facility] CLIA [id number] [address] [place] [address] [place] Platelets (Bld) [#/Vol] 133 10*3/uL Low 150-400 [facility] Comment on above: Order Comment: Speci men Type: BLOOD SPECIMEN Ordering Facility: [facility] Address: [address] [place] [id number] Performed By: #### 5 7021-8 #### [facility] CLIA [id number] [address] [place] [address] [place] RBC (Bld) [#/Vol] 4.96 10*6/uL Normal 4.20-6.00 [facility] Comment on above: Order Comment: Speci men Type: BLOOD SPECIMEN Ordering Facility: [facility] Address: [address] [place] [address] Performed By: #### 5 7021-8 #### [facility] CLIA [id number] [address] [place] [address] [place] WBC (Bld) [#/Vol] 5.29 10*3/uL Normal 3.70-11.00 [facility] Comment on above: Order Comment: Speci men Type: BLOOD SPECIMEN Ordering Facility: [facility] Address: [address] [place] [address] Performed By: #### 5 7021-8 #### [facility] CLIA [id number] [address] [place] [address] [place] Comprehensive metabolic 2000 panelon 12-20-2023 Albumin [Mass/Vol] 3.9 g/dL Normal 3.9-4.9 [facility] Comment on above: Order Comment: Speci men Type: BLOOD SPECIMEN Ordering Facility: [facility] Address: [address] [place] [address] Performed By: #### 5 7782-5 #### [facility] CLIA [id number] [address] [place] [address] [place] #### JUDY, [id number] #### [facility] CLIA [id number] [address] [place] [address] [place] ALT [Catalytic activity/Vol] 21 U/L Normal 10-54 [facility] Comment on above: Order Comment: Speci men Type: BLOOD SPECIMEN Ordering Facility: [facility] Address: [address] [id number] Performed By: #### 5 7782-5 #### [facility] CLIA [id number] [address] [place] [address] [place] #### STALMA DELIA [id number] #### [facility] CLIA [id number] [address] [place] [address] [place] Anion gap [Moles/Vol] 12 mmol/L Normal 9-18 [facility] Comment on above: Order Comment: Speci men Type: BLOOD SPECIMEN Ordering Facility: [facility] Address: [facility] [place] [address] Performed By: #### 5 7782-5 #### [facility] CLIA [id number] [address] [place] [address] [place] #### JUDY [id number] #### [facility] CLIA [id number] [address] [place] [address] [place] AST [Catalytic activity/Vol] 20 U/L Normal 14-40 [facility] Comment on above: Order Comment: Speci men Type: BLOOD SPECIMEN Ordering Facility: [facility] Address: [address] [id number] Performed By: #### 5 7782-5 #### [facility] CLIA [id number] [address] [place] [address] [place] #### STALMA DELIA, [id number] #### [facility] CLIA [id number] [address] [place] [address] [place] Bilirubin [Mass/Vol] 0.7 mg/dL Normal 0.2-1.3 [facility] Comment on above: Order Comment: Speci men Type: BLOOD SPECIMEN Ordering Facility: [facility] Address: [address] [place] [address] Performed By: #### 5 7782-5 #### [facility] CLIA [id number] [address] [place] [address] [place] #### JUDY [id number] #### [facility] CLIA [id number] [address] [place] [address] [place] Calcium [Mass/Vol] 9.0 mg/dL Normal 8.5-10.2 [facility] Comment on above: Order Comment: Speci men Type: BLOOD SPECIMEN Ordering Facility: [facility] Address: [address] [place] [address] Performed By: #### 5 7782-5 #### [facility] CLIA [id number] [address] [place] [address] [place] #### JUDY [id number] #### [facility] CLIA [id number] [address] [place] [address] [place] Chloride [Moles/Vol] 106 mmol/L High 97-105 [facility] Comment on above: Order Comment: Speci men Type: BLOOD SPECIMEN Ordering Facility: [facility] Address: [address] [place] [address] Performed By: #### 5 7782-5 #### [facility] CLIA [id number] [address] [place] [address] [place] #### JUDY [id number] #### [facility] CLIA [id number] [address] [place] [address] [place] CO2 [Moles/Vol] 21 mmol/L Low 22-30 [facility] Comment on above: Order Comment: Speci men Type: BLOOD SPECIMEN Ordering Facility: [facility] Address: [address] [place] [address] Performed By: #### 5 7782-5 #### [facility] CLIA [id number] [address] [place] [address] [place] #### STFRABHAY, [id number] #### [facility] CLIA [id number] [address] [place] [address] [place] Creatinine [Mass/Vol] 0.96 mg/dL Normal 0.73-1.22 [facility] Comment on above: Order Comment: David men Type: BLOOD SPECIMEN Ordering Facility: [facility] Address: [address] [place] [address] Performed By: #### 5 7782-5 #### [facility] CLIA [id number] [address] [place] [address] [place] #### STFRABHAY, [id number] #### [facility] CLIA [id number] [address] [place] [address] [place] [facility] Creatinine and Glomerular filtration rate.predicted panel (S/P/Bld) 86 mL/min/1.73m??? Normal >=60 [facility] Comment on above: Order Comment: David olivo Type: BLOOD SPECIMEN Ordering Facility: [facility] Address: [address] [place] [address] Result Comment: Lupe mated Glomerular Filtration Rate [...] GFR. Performed By: #### 5 7782-5 #### [facility] CLIA [id number] [address] [place] [address] [place] #### STALMA DELIA, [id number] #### [facility] CLIA [id number] [address] [place] [address] [place] Glucose [Mass/Vol] 87 mg/dL Normal 74-99 [facility] Comment on above: Order Comment: David olivo Type: BLOOD SPECIMEN Ordering Facility: [facility] Address: [address] [place] [address] Result Comment: The [place] [employer] (ADA) provides guidance for cutoff [...] Standards of Medical Care in Diabetes 2016, [place] [employer]. Diabetes Care. 2016.39(Suppl 1). Performed By: #### 5 7782-5 #### [facility] CLIA [id number] [address] [place] [address] [place] #### JUDY [id number] #### [facility] CLIA [id number] [address] [place] [address] [place] Potassium [Moles/Vol] 4.1 mmol/L Normal 3.7-5.1 [facility] Comment on above: Order Comment: David olivo Type: BLOOD SPECIMEN Ordering Facility: [facility] Address: [address] [place], [place] [address] Performed By: #### 5 7782-5 #### [facility] CLIA [id number] [address] [place] [address] [place] #### STALMA DELIA, [id number] #### [facility] CLIA [id number] [address] [place] [address] [place] Protein [Mass/Vol] 6.6 g/dL Normal 6.3-8.0 [facility] Comment on above: Order Comment: Speci men Type: BLOOD SPECIMEN Ordering Facility: [facility] Address: [address] [place] [address] Performed By: #### 5 7782-5 #### [facility] CLIA [id number] [address] [place] [address] [place] #### STFRABHAY, [id number] #### [facility] CLIA [id number] [address] [place] [address] [place] Sodium [Moles/Vol] 139 mmol/L Normal 136-144 [facility] Comment on above: Order Comment: Speci men Type: BLOOD SPECIMEN Ordering Facility: [facility] Address: [address] [place] [address] Performed By: #### 5 7782-5 #### [facility] CLIA [id number] [address] [place] [address] [place] #### STALMA DELIA [id number] #### [facility] CLIA [id number] [address] [place] [address] [place] Urea nitrogen [Mass/Vol] 24 mg/dL Normal 9-24 [facility] Comment on above: Order Comment: Speci men Type: BLOOD SPECIMEN Ordering Facility: [facility] Address: [address] [place], [place] [address] Performed By: #### 5 7782-5 #### [facility] CLIA [id number] [address] [place] [address] [place] #### STALMA DELIA, [id number] #### [facility] CLIA [id number] [address] [place] [address] [place] GGT SerPl-cCncon 12-20-2023 Gamma glutamyl transferase [Catalytic activity/Vol] 29 U/L Normal 10-70 [facility] Comment on above: Order Comment: Speci men Type: BLOOD SPECIMEN Ordering Facility: [facility] Address: [address] [place] [address] Performed By: #### 5 7782-5 #### [facility] CLIA [id number] [address] [place] [address] [place] #### STFREV, [id number] #### [facility] CLIA [id number] [address] [place], [place] [address] [place] Hemoccult Stl Ql IAon 2023 Lower GI hemoglobin IA Ql (Stl) Negative Normal Negative [facility] Comment on above: Order Comment: Speci men Type: BLOOD SPECIMEN Ordering Facility: [facility] Address: [address] [place] [address] Performed By: #### 5 7021-8 #### [facility] CLIA [id number] [address] [place] [address] OF [facility] CNPJaja 11-20-2023 CNPN Telephone [facility] MACI HOWARD ([id number]) 1955 M Date Time Provider Department 11/20/23 [...] [D69.6] Order(s):COMP METABOLIC PANEL [SQCMP] Order #: [id number] FUTURE CBC + DIFF [SQCBCDIF] Order #: [id number] FUTURE ALK PHOS ISOENZYM BL [SQALKISO] Order #: [id number] FUTURE GGT BLD [SQGGT] Order #: [id number] FUTURE Prescriptions as of 11/20/2023 - clopidogrel [...] Status:Closed by CLARA VITALE on 11/20/23 Normal [facility] CBC W Auto Differential pane l (Bld)on 11-19-2023 Basophils (Bld) [#/Vol] 0.04 10*3/uL <0.11 k/uL [facility] Basophils/100 WBC (Bld) 0.7 % [facility] Differential cell count method Nom (Bld) Auto [facility] Eosinophils (Bld) [#/Vol] 0.04 10*3/uL <0.46 k/uL [facility] Eosinophils/100 WBC (Bld) 0.7 % [facility] Erythrocyte distribution width (RBC) [Ratio] 13.2 % 11.5 - 15.0 % [facility] Hematocrit (Bld) [Volume fraction] 49.2 % 39.0 - 51.0 % [facility] Hemoglobin (Bld) [Mass/Vol] 16.8 g/dL 13.0 - 17.0 g/dL [facility] Immature granulocytes (Bld) [#/Vol] 0.05 10*3/uL <0.10 k/uL [facility] Immature granulocytes/100 WBC (Bld) 0.8 % [facility] Lymphocytes (Bld) [#/Vol] 1.74 10*3/uL 1.00 - 4.00 k/uL [facility] Lymphocytes/100 WBC (Bld) 28.6 % [facility] MCH (RBC) [Entitic mass] 32.2 pg 26.0 - 34.0 pg [facility] MCHC (RBC) [Mass/Vol] 34.1 g/dL 30.5 - 36.0 g/dL [facility] MCV (RBC) [Entitic vol] 94.3 fL 80.0 - 100.0 fL [facility] Monocytes (Bld) [#/Vol] 0.73 10*3/uL <0.87 k/uL [facility] Monocytes/100 WBC (Bld) 12.0 % [facility] Neutrophils (Bld) [#/Vol] 3.49 10*3/uL 1.45 - 7.50 k/uL [facility] Neutrophils/100 WBC (Bld) 57.2 % [facility] Nucleated RBC (Bld) [#/Vol] <0.01 k/uL [facility] Nucleated RBC/100 WBC (Bld) [Ratio] 0.0 /100 WBC [facility] Platelet mean volume (Bld) [Entitic vol] 9.7 fL 9.0 - 12.7 fL [facility] Platelets (Bld) [#/Vol] 137 10*3/uL Low 150 - 400 k/uL [facility] RBC (Bld) [#/Vol] 5.22 10*6/uL 4.20 - 6.0 0 m/uL [facility] WBC (Bld) [#/Vol] 6.09 10*3/uL 3.70 - 11. 00 k/uL [facility] Basophils (Bld) [#/Vol] 0.04 10*3/uL Normal <0.11 [facility] Comment on above: Order Comment: Speci men Type: BLOOD SPECIMEN Ordering Facility: [facility] Address: [address] [place] [address] Performed By: #### 5 7782-5 #### [facility] CLIA [id number] [address] [place] [address] [place] #### STALMA DELIA [id number] #### [facility] CLIA [id number] [address] [place] [address] [place] Basophils/100 WBC (Bld) 0.7 % Normal [facility] Comment on above: Order Comment: Speci men Type: BLOOD SPECIMEN Ordering Facility: [facility] Address: [address] [place] [address] Performed By: #### 5 7782-5 #### [facility] CLIA [id number] [address] [place] [address] [place] #### STALMA DELIA [id number] #### [facility] CLIA [id number] [address] [place] [address] [place] Differential cell count method Nom (Bld) Auto Normal [facility] Comment on above: Order Comment: Speci men Type: BLOOD SPECIMEN Ordering Facility: [facility] Address: [address] [place] [address] Performed By: #### 5 7782-5 #### [facility] CLIA [id number] [address] [place] [address] [place] #### STALMA DELIA, [id number] #### [facility] CLIA [id number] [address] [place] [address] [place] Eosinophils (Bld) [#/Vol] 0.04 10*3/uL Normal <0.46 [facility] Comment on above: Order Comment: Speci men Type: BLOOD SPECIMEN Ordering Facility: [facility] Address: [address] [place] [address] Performed By: #### 5 7782-5 #### [facility] CLIA [id number] [address] [place] [address] [place] #### STALMA DELIA, [id number] #### [facility] CLIA [id number] [address] [place] [address] [place] Eosinophils/100 WBC (Bld) 0.7 % Normal [facility] Comment on above: Order Comment: Speci men Type: BLOOD SPECIMEN Ordering Facility: [facility] Address: [address] [place] [address] Performed By: #### 5 7782-5 #### [facility] CLIA [id number] [address] [place] [address] [place] #### STALMA DELIA [id number] #### [facility] CLIA [id number] [address] [place] [address] [place] Erythrocyte distribution width (RBC) [Ratio] 13.2 % Normal 11.5-15.0 [facility] Comment on above: Order Comment: Speci men Type: BLOOD SPECIMEN Ordering Facility: [facility] Address: [address] [place] [address] Performed By: #### 5 7782-5 #### [facility] CLIA [id number] [address] [place] [address] [place] #### STALMA DELIA, [id number] #### [facility] CLIA [id number] [address] [place] [address] [place] Hematocrit (Bld) [Volume fraction] 49.2 % Normal 39.0-51.0 [facility] Comment on above: Order Comment: Speci men Type: BLOOD SPECIMEN Ordering Facility: [facility] Address: [address] [place] [address] Performed By: #### 5 7782-5 #### [facility] CLIA [id number] [address] [place] [address] [place] #### STFRABHAY, [id number] #### [facility] CLIA [id number] [address] [place] [address] [place] Hemoglobin (Bld) [Mass/Vol] 16.8 g/dL Normal 13.0-17.0 [facility] Comment on above: Order Comment: Speci men Type: BLOOD SPECIMEN Ordering Facility: [facility] Address: [address] [place] [address] Performed By: #### 5 7782-5 #### [facility] CLIA [id number] [address] [place] [address] [place] #### STALMA DELIA, [id number] #### [facility] CLIA [id number] [address] [place] [address] [place] Immature granulocytes (Bld) [#/Vol] 0.05 10*3/uL Normal <0.10 [facility] Comment on above: Order Comment: Speci men Type: BLOOD SPECIMEN Ordering Facility: [facility] Address: [address] [place] [address] Performed By: #### 5 7782-5 #### [facility] CLIA [id number] [address] [place] [address] [place] #### STFRABHAY, [id number] #### [facility] CLIA [id number] [address] [place] [address] [place] Immature granulocytes/100 WBC (Bld) 0.8 % Normal [facility] Comment on above: Order Comment: Speci men Type: BLOOD SPECIMEN Ordering Facility: [facility] Address: [address] [place] [address] Performed By: #### 5 7782-5 #### [facility] CLIA [id number] [address] [place] [address] [place] #### JUDY [id number] #### [facility] CLIA [id number] [address] [place] [address] [place] Lymphocytes (Bld) [#/Vol] 1.74 10*3/uL Normal 1.00-4.00 [facility] Comment on above: Order Comment: Speci men Type: BLOOD SPECIMEN Ordering Facility: [facility] Address: [address] [place] [address] Performed By: #### 5 7782-5 #### [facility] CLIA [id number] [address] [place] [address] [place] #### JUDY [id number] #### [facility] CLIA [id number] [address] [place] [address] [place] Lymphocytes/100 WBC (Bld) 28.6 % Normal [facility] Comment on above: Order Comment: Speci men Type: BLOOD SPECIMEN Ordering Facility: [facility] Address: [address] [place] [address] Performed By: #### 5 7782-5 #### [facility] CLIA [id number] [address] [place] [address] [place] #### JUDY, [id number] #### [facility] CLIA [id number] [address] [place] [address] [place] MCH (RBC) [Entitic mass] 32.2 pg Normal 26.0-34.0 [facility] Comment on above: Order Comment: Speci men Type: BLOOD SPECIMEN Ordering Facility: [facility] Address: [address] [place] [address] Performed By: #### 5 7782-5 #### [facility] CLIA [id number] [address] [place] [address] [place] #### JUDY [id number] #### [facility] CLIA [id number] [address] [place] [address] [place] MCHC (RBC) [Mass/Vol] 34.1 g/dL Normal 30.5-36.0 [facility] Comment on above: Order Comment: Speci men Type: BLOOD SPECIMEN Ordering Facility: [facility] Address: [address] [place] [address] Performed By: #### 5 7782-5 #### [facility] CLIA [id number] [address] [place] [address] [place] #### JUDY [id number] #### [facility] CLIA [id number] [address] [place] [address] [place] MCV (RBC) [Entitic vol] 94.3 fL Normal 80.0-100.0 [facility] Comment on above: Order Comment: Speci men Type: BLOOD SPECIMEN Ordering Facility: [facility] Address: [address] [place] [address] Performed By: #### 5 7782-5 #### [facility] CLIA [id number] [address] [place] [address] [place] #### JUDY [id number] #### [facility] CLIA [id number] [address] [place] [address] [place] Monocytes (Bld) [#/Vol] 0.73 10*3/uL Normal <0.87 [facility] Comment on above: Order Comment: Speci men Type: BLOOD SPECIMEN Ordering Facility: [facility] Address: [address] [place] [address] Performed By: #### 5 7782-5 #### [facility] CLIA [id number] [address] [place] [address] [place] #### STALMA DELIA [id number] #### [facility] CLIA [id number] [address] [place] [address] [place] Monocytes/100 WBC (Bld) 12.0 % Normal [facility] Comment on above: Order Comment: Speci men Type: BLOOD SPECIMEN Ordering Facility: [facility] Address: [address] [place] [address] Performed By: #### 5 7782-5 #### [facility] CLIA [id number] [address] [place] [address] [place] #### STALMA DELIA, [id number] #### [facility] CLIA [id number] [address] [place] [address] [place] Neutrophils (Bld) [#/Vol] 3.49 10*3/uL Normal 1.45-7.50 [facility] Comment on above: Order Comment: Speci men Type: BLOOD SPECIMEN Ordering Facility: [facility] Address: [address] [place] [address] Performed By: #### 5 7782-5 #### [facility] CLIA [id number] [address] [place] [address] [place] #### STALMA DELIA, [id number] #### [facility] CLIA [id number] [address] [place] [address] [place] Neutrophils/100 WBC (Bld) 57.2 % Normal [facility] Comment on above: Order Comment: Speci men Type: BLOOD SPECIMEN Ordering Facility: [facility] Address: [address] [place] [address] Performed By: #### 5 7782-5 #### [facility] CLIA [id number] [address] [place] [address] [place] #### JUDY [id number] #### [facility] CLIA [id number] [address] [place] [address] [place] Nucleated RBC (Bld) [#/Vol] 10*3/uL Normal <0.01 [facility] Comment on above: Order Comment: Speci men Type: BLOOD SPECIMEN Ordering Facility: [facility] Address: [address] [place] [address] Performed By: #### 5 7782-5 #### [facility] [id number] [address] [place] [address] [place] #### JUDY [id number] #### [facility] CLIA [id number] [address] [place] [address] [place] Nucleated RBC/100 WBC (Bld) [Ratio] 0.0 /100 WBC Normal [facility] Comment on above: Order Comment: Speci men Type: BLOOD SPECIMEN Ordering Facility: [facility] Address: [address] [place] [address] Performed By: #### 5 7782-5 #### [facility] CLIA [id number] [address] [place] [address] [place] #### STALMA DELIA, [id number] #### [facility] CLIA [id number] [address] [place] [address] [place] Platelet mean volume (Bld) [Entitic vol] 9.7 fL Normal 9.0-12.7 [facility] Comment on above: Order Comment: Speci men Type: BLOOD SPECIMEN Ordering Facility: [facility] Address: [address] [place] [address] Performed By: #### 5 7782-5 #### [facility] CLIA [id number] [address] [place] [address] [place] #### STALMA DELIA, [id number] #### [facility] CLIA [id number] [address] [place] [address] [place] Platelets (Bld) [#/Vol] 137 10*3/uL Low 150-400 [facility] Comment on above: Order Comment: Speci men Type: BLOOD SPECIMEN Ordering Facility: [facility] Address: [address] [place] [address] Performed By: #### 5 7782-5 #### [facility] CLIA [id number] [address] [place] [address] [place] #### STALMA DELIA, [id number] #### [facility] CLIA [id number] [address] [place] [address] [place] RBC (Bld) [#/Vol] 5.22 10*6/uL Normal 4.20-6.00 [facility] Comment on above: Order Comment: Speci men Type: BLOOD SPECIMEN Ordering Facility: [facility] Address: [address] [place] [address] Performed By: #### 5 7782-5 #### [facility] CLIA [id number] [address] [place] [address] [place] #### STFRABHAY, [id number] #### [facility] CLIA [id number] [address] [place] [address] [place] WBC (Bld) [#/Vol] 6.09 10*3/uL Normal 3.70-11.00 [place] [facility] Comment on above: Order Comment: Speci men Type: BLOOD SPECIMEN Ordering Facility: [facility] Address: [address] [place] [address] Performed By: #### 5 7782-5 #### [facility] CLIA [id number] [address] [place] [address] [place] #### STALMA DELIA, [id number] #### [facility] CLIA [id number] [address] [facility] [id number] [place], [place] [id number] [facility] CNOVon 11-19-2023 CNOV Office Visit (FAMPWS ) MACI HOWARD ([id number]) 1955 M Date Time Provider Department 11/19/23 8:40 AM [facility] During your visit today, we recorded the [...] CAD s/p SHANIQUA to LAD: managed by [facility] Cardiology. No changes to regimen at [...] DIAGNOSTIC 05/01/2007 EGD ESOPHAGOGASTRODUODENOSCOPY TRANSORAL DIAGNOSTIC 03/21/2013 [facility] EGD PAST SURGICAL HISTORY OF [...] Use Sm (more content not included)... Normal [facility] 11-19-2023 [facility] Telephone (UROLWS) MACI HOWARD ([id number]) 1955 M Date Time Provider Department 11/19/23 [...] (HCC) [C61] Order(s):PSA/PROSTSPECAG DIAG [SQPSA] Order #: [id number] FUTURE Prescriptions as of 11/19/2023 - clopidogrel [...] Status:Closed by TRE FLORES on 11/19/23 Normal [facility] Comprehensive metabolic 2000 panelon 11-19-2023 Albumin [Mass/Vol] 4.1 g/dL 3.9 - 4.9 g/dL [facility] ALP [Catalytic activity/Vol] 148 U/L High 38 - 113 U/L [facility] ALT [Catalytic activity/Vol] 28 U/L 10 - 54 U/L [facility] Anion gap [Moles/Vol] 12 mmol/L 9 - 18 mmol/L [facility] AST [Catalytic activity/Vol] 27 U/L 14 - 40 U/L [facility] Bilirubin [Mass/Vol] 1.2 mg/dL 0.2 - 1.3 mg/dL [facility] Calcium [Mass/Vol] 9.0 mg/dL 8.5 - 10.2 mg/dL [facility] Chloride [Moles/Vol] 106 mmol/L High 97 - 105 mmol/L [facility] CO2 [Moles/Vol] 22 mmol/L 22 - 30 mmol/L [facility] Creatinine [Mass/Vol] 1.08 mg/dL 0.73 - 1.22 mg/dL [facility] Estimated Glomerular Filtration Rate 74 mL/min/1.73m >=60 mL/min/1.73m [facility] Glucose [Mass/Vol] 89 mg/dL 74 - 99 mg/dL [facility] Potassium [Moles/Vol] 4.1 mmol/L 3.7 - 5.1 mmol/L [facility] Protein [Mass/Vol] 6.9 g/dL 6.3 - 8.0 g/dL [facility] Sodium [Moles/Vol] 140 mmol/L 136 - 144 mmol/L [facility] Urea nitrogen [Mass/Vol] 14 mg/dL 9 - 24 mg/dL [facility] Albumin [Mass/Vol] 4.1 g/dL Normal 3.9-4.9 [facility] Comment on above: Order Comment: Speci men Type: BLOOD SPECIMEN Ordering Facility: [facility] Address: [address] [place] [address] Performed By: #### 5 7782-5 #### [facility] CLIA [id number] [address] [place] [address] [place] #### STFRABHAY, [id number] #### [facility] CLIA [id number] [address] [place] [address] [place] ALP [Catalytic activity/Vol] 148 U/L High 38-113 [facility] Comment on above: Order Comment: Speci men Type: BLOOD SPECIMEN Ordering Facility: [facility] Address: [address] [place] [address] Performed By: #### 5 7782-5 #### [facility] CLIA [id number] [address] [place] [address] [place] #### JUDY [id number] #### [facility] CLIA [id number] [address] [place], [place] [address] [place] ALT [Catalytic activity/Vol] 28 U/L Normal 10-54 [facility] Comment on above: Order Comment: Speci men Type: BLOOD SPECIMEN Ordering Facility: [facility] Address: [address] [id number] Performed By: #### 5 7782-5 #### [facility] CLIA [id number] [address] [place] [address] [place] #### JUDY [id number] #### [facility] CLIA [id number] [address] [place] [address] [place] Anion gap [Moles/Vol] 12 mmol/L Normal 9-18 [facility] Comment on above: Order Comment: Speci men Type: BLOOD SPECIMEN Ordering Facility: [facility] Address: [address] [place] [address] Performed By: #### 5 7782-5 #### [facility] CLIA [id number] [address] [place] [address] [place] #### JUDY [id number] #### [facility] CLIA [id number] [address] [place], [place] [address] [place] AST [Catalytic activity/Vol] 27 U/L Normal 14-40 [facility] Comment on above: Order Comment: Speci men Type: BLOOD SPECIMEN Ordering Facility: [facility] Address: [address] [id number] Performed By: #### 5 7782-5 #### [facility] CLIA [id number] [address] [place], [place] [address] [place] #### JUDY, [id number] #### [facility] CLIA [id number] [address] [place] [address] [place] Bilirubin [Mass/Vol] 1.2 mg/dL Normal 0.2-1.3 [facility] Comment on above: Order Comment: Speci men Type: BLOOD SPECIMEN Ordering Facility: [facility] Address: [address] [place] [address] Performed By: #### 5 7782-5 #### [facility] CLIA [id number] [address] [place] [address] [place] #### JUDY [id number] #### [facility] CLIA [id number] [address] [place] [address] [place] Calcium [Mass/Vol] 9.0 mg/dL Normal 8.5-10.2 [facility] Comment on above: Order Comment: Speci men Type: BLOOD SPECIMEN Ordering Facility: [facility] Address: [address] [place] [address] Performed By: #### 5 7782-5 #### [facility] CLIA [id number] [address] [place] [address] [place] #### JUDY [id number] #### [facility] CLIA [id number] [address] [place] [address] [place] Chloride [Moles/Vol] 106 mmol/L High 97-105 [facility] Comment on above: Order Comment: Speci men Type: BLOOD SPECIMEN Ordering Facility: [facility] Address: [address] [place] [address] Performed By: #### 5 7782-5 #### [facility] CLIA [id number] [address] [place] [address] [place] #### JUDY [id number] #### [facility] CLIA [id number] [address] [place] [address] [place] CO2 [Moles/Vol] 22 mmol/L Normal 22-30 [facility] Comment on above: Order Comment: Specmeme olivo Type: BLOOD SPECIMEN Ordering Facility[facility] Address: [address] [place] [address] Performed By: #### 5 7782-5 #### [facility] CLIA [id number] [address] [place] [address] [place] #### STFRABHAY, [id number] #### [facility] CLIA [id number] [address] [place] [address] [place] Creatinine [Mass/Vol] 1.08 mg/dL Normal 0.73-1.22 [facility] Comment on above: Order Comment: Speci men Type: BLOOD SPECIMEN Ordering Facility[facility] Address: [address] [place] [address] Performed By: #### 5 7782-5 #### [facility] CLIA [id number] [address] [place] [address] [place] #### STFRABHAY, [id number] #### [facility] CLIA [id number] [address] [place] [address] [place] Creatinine and Glomerular filtration rate.predicted panel (S/P/Bld) 74 mL/min/1.73m??? Normal >=60 [facility] Comment on above: Order Comment: Speci men Type: BLOOD SPECIMEN Ordering [facility] Address: [address] [place] [address] Result Comment: Lupe mated Glomerular Filtration Rate [...] GFR. Performed By: #### 5 7782-5 #### [facility] CLIA [id number] [address] [place] [address] [place] #### STALMA DELIA, [id number] #### [facility] CLIA [id number] [address] [place] [address] [place] Glucose [Mass/Vol] 89 mg/dL Normal 74-99 [facility] Comment on above: Order Comment: Specmeme olivo Type: BLOOD SPECIMEN Ordering Facility: [facility] Address: [address] [place] [address] Result Comment: The [place] Diabetes [employer] (ADA) provides guidance for cutoff [...] Standards of Medical Care in Diabetes 2016, [place] [employer]. Diabetes Care. 2016.39(Suppl 1). Performed By: #### 5 7782-5 #### [facility] CLIA [id number] [address] [place] [address] [place] #### STALMA DELIA, [id number] #### [facility] CLIA [id number] [address] [place] [address] [place] Potassium [Moles/Vol] 4.1 mmol/L Normal 3.7-5.1 [facility] Comment on above: Order Comment: David olivo Type: BLOOD SPECIMEN Ordering Facility: [facility] Address: [address] [place] [address] Performed By: #### 5 7782-5 #### [facility] CLIA [id number] [address] [place] [address] [place] #### JUDY [id number] #### [facility] CLIA [id number] [address] [place] [address] [place] Protein [Mass/Vol] 6.9 g/dL Normal 6.3-8.0 [facility] Comment on above: Order Comment: Speci men Type: BLOOD SPECIMEN Ordering Facility: [facility] Address: [address] [place] [address] Performed By: #### 5 7782-5 #### [facility] CLIA [id number] [address] [place] [address] [place] #### JUDY [id number] #### [facility] CLIA [id number] [address] [place] [address] [place] Sodium [Moles/Vol] 140 mmol/L Normal 136-144 [facility] Comment on above: Order Comment: Speci men Type: BLOOD SPECIMEN Ordering [facility] Address: [address] [place] [address] Performed By: #### 5 7782-5 #### [facility] CLIA [id number] [address] [place] [address] [place] #### JUDY [id number] #### [facility] CLIA [id number] [address] [place] [address] [place] Urea nitrogen [Mass/Vol] 14 mg/dL Normal 9-24 [facility] Comment on above: Order Comment: Speci men Type: BLOOD SPECIMEN Ordering Facility[facility] Address: [address] [place] [address] Performed By: #### 5 7782-5 #### [facility] CLIA [id number] [address] [place] [address] [place] #### JUDY [id number] #### [facility] CLIA [id number] [address] [place] [address] [place] Lipid 1996 panelon 4 Cholesterol [Mass/Vol] 146 mg/dL <200 mg/[facility] Cholesterol in HDL [Mass/Vol] 30 mg/dL Low >39 mg/dL [facility] Cholesterol in LDL [Mass/Vol] 96 mg/dL <100 mg/dL [facility] Cholesterol in LDL/Cholesterol in HDL [Mass ratio] 3.20 {ratio} High <2.54 [facility] Cholesterol in VLDL [Mass/Vol] 20 mg/dL <30 mg/dL [facility] Cholesterol non HDL [Mass/Vol] 116 mg/dL <130 mg/dL [facility] Cholesterol.total /Cholesterol in HDL [Mass ratio] 4.87 {ratio} <5.10 [facility] Fasting Time 12 hrs [facility] Triglyceride [Mass/Vol] 102 mg/dL <150 mg/dL [facility] Cholesterol [Mass/Vol] 146 mg/dL Normal <200 [facility] Comment on above: Order Comment: Speci men Type: BLOOD SPECIMEN Order[facility] Address: [address] [place] [address] Result Comment: <200 mg/dL, Desirable 200-239 mg/dL, Borderline high >239 mg/dL, High Performed By: #### 5 7782-5 #### [facility] CLIA [id number] [address] [place] [address] [place] #### JUDY, [id number] #### [facility] CLIA [id number] [address] [place] [address] [place] Cholesterol in HDL [Mass/Vol] 30 mg/dL Low >39 [facility] Comment on above: Order Comment: Speci men Type: BLOOD SPECIMEN Ordering Facility[facility] Address: [address] [place] [address] Result Comment: 40-5 9 mg/dL, Acceptable >59 mg/dL, High: Negative risk factor for coronary heart disease <40 mg/dL, Low: Positive risk factor for coronary heart disease Performed By: #### 5 7782-5 #### [facility] CLIA [id number] [address] [place] [address] [place] #### JUDY [id number] #### [facility] CLIA [id number] [address] [place] [address] Cholesterol in LDL [Mass/Vol] 96 mg/dL Normal <100 [facility] Comment on above: Order Comment: David olivo Type: BLOOD SPECIMEN Ordering Facility: [facility] Address: [address] [place] [address] Result Comment: <100 mg/dL, Optimal 100-129 mg/dL, Near optimal/above optimal 130-159 mg/dL, Borderline high 160-189 mg/dL, High >189 mg/dL, Very high Secondary prevention optimal LDL Cholesterol levels are recommended to be < 70 mg/dL Performed By: #### 5 7782-5 #### [facility] CLIA [id number] [address] [place] [address] [place] #### JUDY, [id number] #### [facility] CLIA [id number] [address] [place] [address] STATES [facility] Cholesterol in LDL/Cholesterol in HDL [Mass ratio] 3.20 {ratio} High <2.54 [facility] Comment on above: Order Comment: David olivo Type: BLOOD SPECIMEN Ordering Facility: [facility] Address: [address] [place] [address] Result Comment: Ric song: 1. National Cholesterol Education Program ATP III Guideline At-A-Glance Quick Desk Reference: National Heart, Lung, and Blood [place]. National Institutes of Health. 2001: NIH Publication No. 01-3305. 2. An International Atherosclerosis Society position paper: global recommendations for the management of dyslipidemia: executive summary, Atherosclerosis. 2014: 232(2):410-413. Performed By: #### 5 7782-5 #### [facility] CLIA [id number] [address] [place] [address] [place] #### JUDY [id number] #### [facility] CLIA [id number] [address] [place] [address] [place] Cholesterol in VLDL [Mass/Vol] 20 mg/dL Normal <30 [facility] Comment on above: Order Comment: Speci men Type: BLOOD SPECIMEN Ordering [facility] Address: [address] [place] [address] Performed By: #### 5 7782-5 #### [facility] CLIA [id number] [address] [place] [address] [place] #### JUDY [id number] #### [facility] CLIA [id number] [address] [place] [address] [place] Cholesterol non HDL [Mass/Vol] 116 mg/dL Normal <130 [facility] Comment on above: Order Comment: David olivo Type: BLOOD SPECIMEN [facility] Address: [address] [place] [address] Result Comment: <130 mg/dL, Optimal 130-159 mg/dL, Near optimal/above optimal 160-189 mg/dL, Borderline high 190-219 mg/dL, High >219 mg/dL, Very high Secondary prevention optimal non HDL Cholesterol levels are recommended to be <100 mg/dL Performed By: #### 5 7782-5 #### [facility] CLIA [id number] [address] [place] [address] [place] #### JUDY [id number] #### [facility] CLIA [id number] [address] [place] [address] [place] Cholesterol.total /Cholesterol in HDL [Mass ratio] 4.87 {ratio} Normal <5.10 [facility] Comment on above: Order Comment: Speci men Type: BLOOD SPECIMEN [facility] Address: [address] [place] [address] Performed By: #### 5 7782-5 #### [facility] CLIA [id number] [address] [place] [address] [place] #### JUDY [id number] #### [facility] CLIA [id number] [address] [place] [address] [place] FASTING TIME 12 hrs Normal [facility] Comment on above: Order Comment: Speci men Type: BLOOD SPECIMEN [facility] Address: [address] [place] [address] Performed By: #### 5 7782-5 #### [facility] CLIA [id number] [address] [place] [address] [place] #### JUDY [id number] #### [facility] CLIA [id number] [address] [place] [address] [place] Triglyceride [Mass/Vol] 102 mg/dL Normal <150 [facility] Comment on above: Order Comment: Speci men Type: BLOOD SPECIMEN [facility] Address: [address] [place] [address] Result Comment: <150 mg/dL, Normal 150-199 mg/dL, Borderline high 200-499 mg/dL, High >499 mg/dL, Very high Performed By: #### 5 7782-5 #### [facility] CLIA [id number] [address] [place] [address] [place] #### STALMA DELIA, [id number] #### [facility] CLIA [id number] [address] [place] [address] [place] [facility] Prostate specific Ag [Mass/Vol] 0.26 ng/mL Normal <2.60 [facility] Comment on above: Order Comment: Speci men Type: BLOOD SPECIMEN Order[facility] Address: [address] [place] [address] Result Comment: Raheel marie PSA test methodology used is the Electrochemiluminescence Immunoassay by [employer]. Total PSA values by differing methodologies cannot be interchanged. Performed By: #### 5 7782-5 #### [facility] CLIA [id number] [address] [place] [address] [place] #### STFREV, [id number] #### [facility] CLIA [id number] [address] [place] [address] [place] PSA/PROSTSPECAG DIAGon 11-18 Prostate specific Ag [Mass/Vol] 0.26 ng/mL <2.60 ng/mL [facility] Jason 07-03-2023 [facility] Telephone (FAMRamónWS) MACI HOWARD ([id number]) 1955 M Date Time Provider Department 07/03/23 [...] Status:Closed by CLARA VITALE on 12/02/23 Normal [facility] LIPID PANEL, NONFASTINGon Cholesterol [Mass/Vol] 150 mg/dL Normal <200 [facility] Comment on above: Order Comment: Speci men Type: BLOOD SPECIMEN Order[facility] Address: [address] [place] [address] Result Comment: <200 mg/dL, Desirable 200-239 mg/dL, Borderline high >239 mg/dL, High Performed By: #### 5 7021-8 #### [facility] CLIA [id number] [address] [place] [address] [place] HDL CHOLESTEROL, NF 34 mg/dL Low >39 [facility] Comment on above: Order Comment: David olivo Type: BLOOD SPECIMEN Order[facility] Address: [address] [place] [address] Result Comment: 40-5 9 mg/dL, Acceptable >59 mg/dL, High: Negative risk factor for coronary heart disease <40 mg/dL, Low: Positive risk factor for coronary heart disease Performed By: #### 5 7021-8 #### [facility] CLIA [id number] [address] [place] [address] LDL CHOLESTEROL, NF 97 mg/dL Normal <100 [facility] Comment on above: Order Comment: David olivo Type: BLOOD SPECIMEN Ordering Facility: [facility] Address: [address] [place] [address] Result Comment: <100 mg/dL, Optimal 100-129 mg/dL, Near optimal/above optimal 130-159 mg/dL, Borderline high 160-189 mg/dL, High >189 mg/dL, Very high Secondary prevention optimal LDL Cholesterol levels are recommended to be < 70 mg/dL Performed By: #### 5 7021-8 #### [facility] [id number] [address] [place] [address] [place] LDL/HDL RATIO, NF 2.85 mg/dL High <2.54 [facility] Comment on above: Order Comment: David [facility] Type: BLOOD SPECIMEN Ordering [facility] Address: [address] [place] [address] Result Comment: Ric song: 1. National Cholesterol Education Program ATP III Guideline At-A-Glance Quick Desk Reference: National Heart, Lung, and Blood [place]. National Institutes of Health. 2001: NIH Publication No. 01-3305. 2. An International Atherosclerosis Society position paper: global recommendations for the management of dyslipidemia: executive summary, Atherosclerosis. 2014: 232(2):410-413. Performed By: #### 5 7021-8 #### [facility] CLIA [id number] [address] [place] [address] [place] NON HDL CHOL, NF 116 mg/dL Normal <130 [facility] Comment on above: Order Comment: David olivo Type: BLOOD SPECIMEN Ordering Facility[facility] Address: [address] [place] [address] Result Comment: <130 mg/dL, Optimal 130-159 mg/dL, Near optimal/above optimal 160-189 mg/dL, Borderline high 190-219 mg/dL, High >219 mg/dL, Very high Secondary prevention optimal non HDL Cholesterol levels are recommended to be <100 mg/dL Performed By: #### 5 7021-8 #### [facility] CLIA [id number] [address] [place] [address] STATES OF [facility] T CHOL/HDL RATIO NF 4.41 mg/dL Normal <5.10 [facility] Comment on above: Order Comment: David olivo Type: BLOOD SPECIMEN Ordering Facility[facility] Address: [address] [place] [address] Performed By: #### 5 7021-8 #### [facility] CLIA [id number] [address] [place] [address] [place] TRIGLYCERIDES, NF 95 mg/dL Normal <150 [facility] Comment on above: Order Comment: David olivo Type: BLOOD SPECIMEN Ordering Facility: [facility] Address: [address] [place] [address] Result Comment: <150 mg/dL, Normal 150-199 mg/dL, Borderline high 200-499 mg/dL, High >499 mg/dL, Very high Performed By: #### 5 7021-8 #### [facility] CLIA [id number] [address] [place] [address] [place] VLDL CHOLESTEROL, NF 19 mg/dL Normal <30 [facility] Comment on above: Order Comment: Speci men Type: BLOOD SPECIMEN Ordering Facility[facility] Address: [address] [place] [address] Performed By: #### 5 7021-8 #### [facility] CLIA [id number] [address] [place] [address] [place] CBC W Auto Differential pane l (Bld)on 08-22-2022 Basophils (Bld) [#/Vol] 0.06 10*3/uL <0.11 k/uL [facility] Basophils/100 WBC (Bld) 0.9 % [facility] Differential cell count method Nom (Bld) Auto [facility] Eosinophils (Bld) [#/Vol] 0.06 10*3/uL <0.46 k/uL [facility] Eosinophils/100 WBC (Bld) 0.9 % [facility] Erythrocyte distribution width (RBC) [Ratio] 12.9 % 11.5 - 15.0 % [facility] Hematocrit (Bld) [Volume fraction] 50.1 % 39.0 - 51.0 % [facility] Hemoglobin (Bld) [Mass/Vol] 17.1 g/dL High 13.0 - 17.0 g/dL [facility] Immature granulocytes (Bld) [#/Vol] 0.11 10*3/uL High <0.10 k/uL [facility] Immature granulocytes/100 WBC (Bld) 1.7 % [facility] Lymphocytes (Bld) [#/Vol] 1.73 10*3/uL 1.00 - 4.00 k/uL [facility] Lymphocytes/100 WBC (Bld) 26.1 % [facility] MCH (RBC) [Entitic mass] 31.7 pg 26.0 - 34.0 pg [facility] MCHC (RBC) [Mass/Vol] 34.1 g/dL 30.5 - 36.0 g/dL [facility] MCV (RBC) [Entitic vol] 92.8 fL 80.0 - 100.0 fL [facility] Monocytes (Bld) [#/Vol] 0.65 10*3/uL <0.87 k/uL [facility] Monocytes/100 WBC (Bld) 9.8 % [facility] Neutrophils (Bld) [#/Vol] 4.01 10*3/uL 1.45 - 7.50 k/uL [facility] Neutrophils/100 WBC (Bld) 60.6 % [facility] Nucleated RBC (Bld) [#/Vol] <0.01 k/uL [facility] Nucleated RBC/100 WBC (Bld) [Ratio] 0.0 /100 WBC [facility] Platelet mean volume (Bld) [Entitic vol] 9.2 fL 9.0 - 12.7 fL [facility] Platelets (Bld) [#/Vol] 178 10*3/uL 150 - 400 k/uL [facility] RBC (Bld) [#/Vol] 5.40 10*6/uL 4.20 - 6.0 0 m/uL [facility] WBC (Bld) [#/Vol] 6.62 10*3/uL 3.70 - 11. 00 k/uL [facility] Comprehensive metabolic 2000 panelon 08-22-2022 Albumin [Mass/Vol] 3.9 g/dL 3.9 - 4.9 g/dL [facility] ALP [Catalytic activity/Vol] 111 U/L 38 - 113 U/L [facility] ALT [Catalytic activity/Vol] 21 U/L 10 - 54 U/L [facility] Anion gap [Moles/Vol] 10 mmol/L 9 - 18 mmol/L [facility] AST [Catalytic activity/Vol] 20 U/L 14 - 40 U/L [facility] Bilirubin [Mass/Vol] 0.6 mg/dL 0.2 - 1.3 mg/dL [facility] Calcium [Mass/Vol] 9.2 mg/dL 8.5 - 10.2 mg/dL [facility] Chloride [Moles/Vol] 106 mmol/L High 97 - 105 mmol/L [facility] CO2 [Moles/Vol] 24 mmol/L 22 - 30 mmol/L [facility] Creatinine [Mass/Vol] 1.07 mg/dL 0.73 - 1.22 mg/dL [facility] Estimated Glomerular Filtration Rate 76 mL/min/1.73m >=60 mL/min/1.73m [facility] Glucose [Mass/Vol] 100 mg/dL High 74 - 99 mg/dL [facility] Potassium [Moles/Vol] 4.2 mmol/L 3.7 - 5.1 mmol/L [facility] Protein [Mass/Vol] 6.7 g/dL 6.3 - 8.0 g/dL [facility] Sodium [Moles/Vol] 140 mmol/L 136 - 144 mmol/L [facility] Urea nitrogen [Mass/Vol] 20 mg/dL 9 - 24 mg/dL [facility] UA DIP, URINE (POC)on 2021 BILIRUBIN UA (POCT) Negative Negative [facility] CLARITY UA (POCT) Clear [facility] COLOR UA (POCT) Dark yellow [facility] GLUCOSE UA (POCT) Negative Negative mg/dL [facility] HEMOGLOBIN/BLOOD UA (POCT) Negative Negative [facility] KETONE UA (POCT) Trace Negative mg/dL [facility] LEUKOCYTES UA (POCT) Negative Negative [facility] NITRITE UA (POCT) Negative Negative [facility] PH UA (POCT) 5.5 4.5 - 8.0 [facility] Protein Ql (U) Negative Negative mg/dL [facility] SPECIFIC GRAVITY UA (POCT) 1.025 1.005 - 1.030 [facility] UROBILINOGEN UA (POCT) 1.0 E.U./dL Normal E.U./dL [facility] AFB Cult and Stainon 018 AFB Cult and Stain Smear Result - No acid fast bacilli seen by fluorochrome stain Culture Result - No Acid Fast Bacilli isolated after 44 days [facility] Comment on above: Performed By: #### A FC ####[facility] [place], [place] [phone] Eosin Smron 11-10-2017 Eosinophils 6% EOSINOPHILS PRESE NT (100 WBC COUNTED). [facility] Comment on above: Result Comment: This test was developed and its performance characteristics determined by [facility]'s Dre JKrzysztof [facility] Pathology and Laboratory Medicine [place] ([facility]).It has not been cleared or approved by the FDA. [facility] is regulated under CLIA as qualified to perform high-complexity testing.This test is used for clinical purposes. It should not be regarded as investigational or for research. Performed By: #### E OSSMR ####[facility], [place] [phone] Fungal Cultureon 11-10-2017 Fungal Culture Culture Result - Rar e Yeast, not Cryptococcus neoformans --> ABNORMAL ALERT No other fungus found. Critically abnormal [facility] Comment on above: Performed By: #### F CUL ####[facility] [address] [place], [place] [phone] Fungal Smearon 11-10-2017 Fungal Smear Smear Result - No fu ngus seen. Normal [facility] Comment on above: Performed By: #### F UNGSM ####[facility] [address] [place], [place] [phone] HISTORY PHYSICALon 8 HISTORY PHYSICAL HNO ID: [id number] thor: Yousuf Matias: Pulmonary DiseaseAuthor Type: PhysicianType: HANDPFiled: 11/10/2017 12:29 PMNote Text:PROCEDURAL SEDATION HISTORY AND PHYSICAL EXAMSERVICE DATE: 11/10/2017SERVICE TIME: 11:30 AMSubjectiveHPI: This is a 62 year old male who presents with chronic cough, recurrentchest infections.Recently seen by local ENT, Dr. Eli, and treated with course of oralantibiotic RX, without change in cough.Recent IgE, eosinophil counts both normal, and [facility] [place] panelnegative.Has held Plavix and aspirin for 5 [...] 05/01/2007 EGD- EGD W/O OR W/BRUSH/WASH 03/21/2013 [facility] EGD- PAST SURGICAL HISTORY OF [...] November 10, 2017 : 12:22 PM PAGER: [phone] Normal [facility] NURSING PROGon 11-10-2017 NURSING PROG HNO ID: [id number] thor: Lynn Workman RNService: NursingAuthor Type: Registered NurseType: Nursing Progress NoteFiled: 11/10/2017 2:04 PMNote Text: Nursing Progress NotePatient Name: Maci HowardMRN: [id number] Location: [place] Endo/[facility] Endo pt awake and talking to at this time. Denies pain.This note was completed by: Lynn Workman, [id number] pt had sm sips H2O, managed fluids well, VSS. [facility] OPERATIVE NOon 11-10-2017 OPERATIVE NO HNO ID: [id number] thor: Yousuf Matias: Pulmonary DiseaseAuthor Type: PhysicianType: Operative ReportFiled: 11/10/2017 1:13 PMNote Text:11/10/2017Maci [id number] bronchoscopy with endobronchial biopsy of the right [...] Biopsy RLL forsurgical pathology.Full note in Provation.Yousuf Jewlel MD, [facility] [address] [address]H: [phone]: [phone] [facility] PROCEDUREon 11-10-2017 PROCEDURE HNO ID: [id number] thor: Yousuf Matias: Pulmonary DiseaseAuthor Type: PhysicianType: ProceduresFiled: 11/10/2017 1:14 PMNote Text:11/10/2017Maci [id number] bronchoscopy with endobronchial biopsy of the right [...] forsurgical pathology.Full note in Provation.Yousuf Jewell MD, [facility] [address] [address]L: [phone]: [phone] [facility] PT EDon 11-10-2017 PT ED HNO ID: [id number] thor: Rafael (Rn) Timothy RNService: NursingAuthor Type: Registered NurseType: Patient EducationFiled: 11/10/2017 2:45 PMNote Text:POST OP LEARNING RESPONSEINSTRUCTION PROVIDED TO: Patient and family memberMETHOD OF INSTRUCTION: Written instruction - handoutsVerbal instructionPATIENT / FAMILY RESPONSE: Information received as demonstrated byinterest and questionsFOLLOW-UP PLAN: Patient instructed to call with any further issuesSUPPLEMENTAL MATERIAL: NoneREFERRAL (RECOMMENDATION): NoneElectronically Signed By: Rafael Aguirre RN [facility] PT ED HNO ID: [id number] thor: Bebe AndersonRn) Lilly, RNService: (none)Author Type: Registered NurseType: Patient EducationFiled: 11/10/2017 11:11 AMNote Text:PRE OP LEARNING ASSESSMENTPROCEDURE/SURGERY: BronchoscopyREADINESS TO LEARNCOGNITIVE ABILITY: Alert and orientedMOTIVATION TO LEARN: InterestedFAMILY SUPPORT: High - Very involved in pt carePATIENT LEARNS BEST BY: Verbal InstructionFACTORS AFFECTING LEARNING: NonePHYSICAL LIMITATIONS AFFECTING LEARNING: NoneElectronically Signed By: Bebe Carr RN In [facility] Respiratory Cult/Stainon Respiratory Cult/Stain Smear Result - Few Gram positive cocci --> ABNORMAL ALERT Rare Polymorphonuclear leukocytes Rare Epithelial cells Culture Result - Moderate Normal respiratory christofer present Critically abnormal [facility] Comment on above: Performed By: #### R CULST ####[facility] [place], [place] [phone] SURGICAL PATHOLOGYon 018 SURGICAL PATHOLOGY [facility]: [id number] Physician: Yousuf Jewell M.D. FINAL DIAGNOSISLung, right [...] submitted in one cassette.Gross examination performed at [facility], [address] [place] [address] 11/10/2017 7:12:29 PMPatient ID #: [id number] of Report: 11/12/2017Date of Procedure: 11/10/2017Date of Receipt: 11/10/2017Submitted by: Yousuf Jewell M.D.Location: MEENDDiagnostic interpretation performed at [place] [address]. [facility] Comment on above: Performed By: #### P ATHS ####[facility] [address] [phone] HOSPon 10-06-2017 HOSP Patient:Woodard ry DMRN: Height:6' [...] days for the following basenames: K,HCTProgress Notes ([facility]):Aleida GarciaMANDIE, [facility] 10/16/2017 4:45 PM SignedPatient has been identified [...] AM SignedWill give 50 mg tablet instead. [facility] PROGRESSon 09-19-2017 PROGRESS HNO ID: [id number] thor: Yousuf Matias: (none)Author Type: PhysicianType: Progress [...] the outside records noted above.Yousuf Jewell MD, [facility] Respiratory [place] [facility] Vital Signs Date Time Vital Sign Value Performing Clinician Faci lity 05-25-2024 08:08-0400 Body mass index (BMI) [Ratio] 30.05 kg/m2 Oliva Podlogar RETAIL ADVISOR.DOORS PREFITTER Work Phone: [facility] 05-25-2024 08:08-0400 Body weight 103.3 kg Oliva Podlogar RETAIL ADVISOR.DOORS PREFITTER Work Phone: [facility] 05-25-2024 08:08-0400 Diastolic blood pressure 88 mm[Hg] Oliva Podlogar RETAIL ADVISOR.DOORS PREFITTER Work Phone: [facility] 05-25-2024 08:08-0400 Heart rate 59 /min Oliva Podlogar RETAIL ADVISOR.DOORS PREFITTER Work Phone: [facility] 05-25-2024 08:08-0400 Respiratory rate 18 /min Oliva Podlogar RETAIL ADVISOR.DOORS PREFITTER Work Phone: [facility] 05-25-2024 08:08-0400 SaO2% (BldA) [Mass fraction] 96 % Oliva Podlogar RETAIL ADVISOR.DOORS PREFITTER Work Phone: [facility] 05-25-2024 08:08-0400 Systolic blood pressure 124 mm[Hg] Oliva Podlogar RETAIL ADVISOR.DOORS PREFITTER Work Phone: [facility] 11-19-2023 08:36-0400 Body weight 106.14 kg Vilma Snow MD Work Phone: [facility] 11-19-2023 08:36-0400 Diastolic blood pressure 70 mm[Hg] Vilma Snow MD Work Phone: [facility] 11-19-2023 08:36-0400 Heart rate 74 /min Vilma Snow MD Work Phone: [facility] 11-19-2023 08:36-0400 Respiratory rate 16 /min Vilma Snow MD Work Phone: [facility] 11-19-2023 08:36-0400 Systolic blood pressure 124 mm[Hg] Vilma Snow MD Work Phone: [facility] 02-19-2023 08:30-0400 SaO2% (BldA) [Mass fraction] 95 % Vilma Snow MD Work Phone: [facility] 08-22-2022 09:39-0500 Body weight 107.41 kg Vilma Snow MD Work Phone: [facility] 08-22-2022 09:39-0500 Diastolic blood pressure 70 mm[Hg] Vilma Snow MD Work Phone: [facility] 08-22-2022 09:39-0500 Heart rate 63 /min Vilma Snow MD Work Phone: [facility] 08-22-2022 09:39-0500 Respiratory rate 16 /min Vilma Snow MD Work Phone: [facility] 08-22-2022 09:39-0500 SaO2% (BldA) [Mass fraction] 97 % Vilma Snow MD Work Phone: [facility] 08-22-2022 09:39-0500 Systolic blood pressure 106 mm[Hg] Vilma Snow MD Work Phone: [facility] 08-16-2022 08:08-0500 Body height 185.4 cm Ovi Butcher PA-C Work Phone: [facility] 08-16-2022 08:08-0500 Body temperature 98.01 [degF] Ovi Butcher PA-C Work Phone: [facility] 08-16-2022 08:08-0500 Body weight 106.14 kg Ovi Butcher PA-C Work Phone: [facility] 08-16-2022 08:08-0500 Diastolic blood pressure 84 mm[Hg] Ovi Butcher PA-C Work Phone: [facility] 08-16-2022 08:08-0500 Heart rate 82 /min Ovi Butcher PA-C Work Phone: [facility] 08-16-2022 08:08-0500 Respiratory rate 20 /min Ovi Butcher PA-C Work Phone: [facility] 08-16-2022 08:08-0500 SaO2% (BldA) [Mass fraction] 97 % Ovi Butcher PA-C Work Phone: [facility] 08-16-2022 08:08-0500 Systolic blood pressure 110 mm[Hg] Ovi Butcher PA-C Work Phone: [facility] Encounters Encounter Date Encounter Type Care Provider Facility Start: 05-25-2024 End: 05-25-2024 Patient encounter procedure Oliva Wong APRN.DOORS PREFITTER Work Phone: [facility] [place] Comment on above: Essential hypertensi on (Primary Dx); Encounter for immunization; Obesity, Class I, BMI 30-34.9; Thrombocytopenia (HCC); Elevated alkaline phosphatase level; Hyperlipidemia, unspecified hyperlipidemia type; History of prostate cancer; Coronary artery disease involving [place] heart without angina pectoris, unspecified vessel or lesion type; History of CVA (cerebrovascular accident); LESLY on CPAP; SOB (shortness of breath) Start: 05-25-2024 End: 05-25-2024 ambulatory VILMA SNOW Facility:[facility] Start: 05-24-2024 End: 05-24-2024 ambulatory VILMA SNOW Facility:[facility] Start: 03-02-2024 Refill Whit marcum APRN.CNP Work Phone: [facility] [place] Comment on above: Refill Request Start: 01-28-2024 Telephone encounter Elmo Snow MD Work Phone: [facility] [place] Comment on above: Results Start: 01-26-2024 End: 01-26-2024 ambulatory VILMA SNOW Facility:[facility] Start: 12-24-2023 Telephone encounter Elmo Snow MD Work Phone: [facility] [place] Comment on above: Results Start: 12-20-2023 End: 12-20-2023 ambulatory VILMA SNOW Facility:[facility] Start: 11-20-2023 Telephone encounter Elmo Snow MD Work Phone: [facility] [place] Comment on above: Results Start: 11-19-2023 Telephone encounter Ovi talbot PA-C Work Phone: Urology Comment on above: PSA question Start: 11-19-2023 End: 11-19-2023 ambulatory VILMA SNOW Facility:[facility] Start: 11-19-2023 End: 11-19-2023 Patient encounter procedure Vilma Snow MD Work Phone: [facility] [place] Comment on above: Diarrhea, unspecifie d type (Primary Dx); Essential hypertension; Hyperlipidemia, unspecified hyperlipidemia type; Coronary artery disease involving [place] heart without angina pectoris, unspecified vessel or lesion type; History of CVA (cerebrovascular accident); LESLY on CPAP; Screening for colon cancer; History of prostate cancer; S/P prostatectomy; Severe persistent asthma, uncomplicated; Chronic bronchitis, unspecified chronic bronchitis type (HCC); Gastroesophageal reflux disease, unspecified whether esophagitis present Start: 11-18-2023 Refill Whit marcum APRN.DOORS PREFITTER Work Phone: [facility] [place] Comment on above: Refill Request Start: 07-03-2023 Telephone encounter Elmo Snow MD Work Phone: [facility] Comment on above: Results Start: 07-02-2023 End: 07-02-2023 ambulatory VILMA SNOW Facility:[facility] Start: 06-26-2023 Refill Oliva Wong APRN.DOORS PREFITTER Work Phone: [facility] Comment on above: Refill Request Start: 02-20-2023 Telephone encounter Elmo Snow MD Work Phone: [facility] Comment on above: Results Start: 02-19-2023 End: 02-19-2023 Patient encounter procedure Vilma Snow MD Work Phone: [facility] [place] Comment on above: Severe persistent as thma, uncomplicated (Primary Dx); SOB (shortness of breath); Coronary artery disease involving [place] heart without angina pectoris, unspecified vessel or lesion type; Essential hypertension; Hyperlipidemia, unspecified hyperlipidemia type; LESLY on CPAP; History of CVA (cerebrovascular accident); Elevated prostate specific antigen (PSA); Sensation of fullness in both ears; S/P prostatectomy; History of prostate cancer; Chronic bronchitis, unspecified chronic bronchitis type (HCC) Start: 12-16-2022 [facility]ill [facility] Comment on above: Refill Request Start: 08-22-2022 End: 08-22-2022 Patient encounter procedure [facility] Comment on above: Essential hypertensi on (Primary Dx); Coronary artery disease involving [place] heart without angina pectoris, unspecified vessel or lesion type; SOB (shortness of breath); Severe persistent asthma, uncomplicated; LESLY on CPAP; History of CVA (cerebrovascular accident); Prostate cancer (HCC); Elevated prostate specific antigen (PSA); Gastroesophageal reflux disease, unspecified whether esophagitis present; Screening for colon cancer; Anxiety with depression Start: 08-21-2022 Refill Vilma Snow MD Work Phone: [facility] Comment on above: Refill Request; Refi ll Request Start: 08-16-2022 End: 08-16-2022 Patient encounter procedure Ovi Butcher PA-C Work Phone: Urology Comment on above: Personal history of prostate cancer (Primary Dx) Start: 12-25-2021 Refill [facility] Comment on above: Refill Request Start: 11-13-2021 Refill Vilma Snow MD Work Phone: [facility] Comment on above: Refill Request Start: 11-10-2017 End: 11-10-2017 Ambulatory [facility] Start: 09-17-2017 Ambulatory [facility] Procedures Date Procedure Procedure Detail Performing Clinician Start: 05-25-2024 PFIZER-BIONTECH COVI D-19 VACCINE AGE 12+ YR (COMIRNATY) Oliva Wong APRN.CNP Work Phone: Start: 11-19-2023 Lipid 1996 panel - S patricia or Plasma Vilma Snow MD Work Phone: Start: 07-02-2023 Lipid 1996 panel - S patricia or Plasma Whit Hernandez RETAIL ADVISOR.DOORS PREFITTER Work Phone: Start: 02-19-2023 H/O: surgery S/P prostatectomy Aram Snow MD Work Phone: Start: 02-19-2023 Lipid 1996 panel - S patricia or Plasma Oliva Wong RETAIL ADVISOR.DOORS PREFITTER Work Phone: Start: 08-16-2022 Urnls dip stick/tabl et rgnt auto w/o microscopy Ovi Butcher PA-C Work Phone: Start: 02-02-2021 Adult depression screening assessment Vilma Snow MD Work Phone: H/O: surgery S/P prostatectomy Elmo Snow MD Work Phone: Plan of Treatment Date Care Activity Detail Author Start: 11-18-2028 Lipid panel Lipid Screening [facility] Start: 07-02-2028 Lipid panel Lipid Screening [facility] Start: 02-20-2028 Lipid 1996 panel - Serum or Plasma Lipid Screening [facility] Start: 02-20-2028 LIPID SCREEN LIPID SCREEN [facility] Start: 12-11-2027 Urine microalbumin profile [facility] Start: 10-14-2027 PROSTATE CANCER SCREENING DISCUSSION PROSTATE CANCER SCREENING DISCUSSION [facility] Start: 08-14-2027 PROSTATE CANCER SCREENING DISCUSSION PROSTATE CANCER SCREENING DISCUSSION [facility] Start: 05-24-2027 Diabetes Screening Diabetes Screenin g [facility] Start: 12-19-2026 Diabetes Screening Diabetes Screenin g [facility] Start: 11-18-2026 Diabetes Screening Diabetes Screenin g [facility] Start: 08-09-2026 PROSTATE CANCER SCREENING DISCUSSION PROSTATE CANCER SCREENING DISCUSSION [facility] Start: 02-19-2026 DIABETES SCREEN DIABETES SCREEN [facility] Start: 02-19-2026 Diabetes Screening Diabetes Screenin g [facility] Start: 02-02-2026 LIPID SCREEN LIPID SCREEN [facility] Start: 08-22-2025 DIABETES SCREEN DIABETES SCREEN [facility] Start: 05-25-2025 Annual PCP Team Acting Professor payton Disease Visit Annual PCP Team Chronic Disease Visit [facility] Start: 11-23-2024 End: 11-23-2024 Patient encounter procedure 11/23/2024 8:40 AM EDT Office Visit Family Obed [facility] [address] [place] [address] Vilma Snow MD [address] [place] [address] 6 month follow up Family [facility] Comment on above: 6 month follow up Start: 11-20-2024 Screening for malign ant neoplasm of colon [facility] Start: 11-18-2024 Annual PCP Team Acting Professor payton Disease Visit Annual PCP Team Chronic Disease Visit [facility] Start: 11-18-2024 BP Controlled (<130/80) BP Controlle d (<130/80) [facility] Start: 11-18-2024 Hepatitis B surface antibody level LDL Cholesterol [facility] Start: 08-17-2024 Behavioral Health Screening Behavioral Health Screening [facility] Comment on above: Postponed from 08/18 (Declined at this time) Start: 08-17-2024 [facility] Comment on above: Postponed from 08/18 (Declined at this time) Start: 08-09-2024 DIABETES SCREEN DIABETES SCREEN [facility] Start: 07-02-2024 Hepatitis B surface antibody level LDL Cholesterol [facility] Start: 05-25-2024 End: 05-25-2024 Patient encounter procedure Family Obed [facility] Comment on above: 6 mo follow up Start: 04-18-2024 Influenza vaccination Influenza Vacc ine (#1) [facility] Start: 02-20-2024 ANNUAL PCP TEAM CRUISE COUNSELOR [place] DISEASE VISIT ANNUAL PCP TEAM CHRONIC DISEASE VISIT [facility] Start: 02-20-2024 BP CONTROLLED (<130/80) BP CONTROLLE D (<130/80) [facility] Start: 02-20-2024 Hepatitis B surface antibody level LDL CHOLESTEROL [facility] Start: 01-24-2024 End: 04-24-2024 CBC W Ordered Manual Differential panel - Blood PATHOLOGIST INTERPRETATION WITH CBC AND DIFF Lab Routine Thrombocytopenia (HCC) Expected: 01/24/2024, Expires: 04/24/2024 [facility] Work Phone: Comment on above: Expected: 01/24/2024 , Expires: 04/24/2024 Start: 01-24-2024 End: 04-24-2024 Hepatitis C virus Ab [Presence] in Serum HEPATITIS C ANTIBODY IA WITH CONFIRMATION Lab Routine Thrombocytopenia (HCC) Expected: 01/24/2024, Expires: 04/24/2024 [facility] Comment on above: Expected: 01/24/2024 , Expires: 04/24/2024 Start: 01-24-2024 End: 04-24-2024 HIV 1+2 Ab [Presence] in Serum or Plasma by Immunoassay HIV 1/2 COMBO WITH REFLEX TO DIFFERENTIATION Lab Routine Thrombocytopenia (HCC) Expected: 01/24/2024, Expires: 04/24/2024 [facility] Comment on above: Expected: 01/24/2024 , Expires: 04/24/2024 Start: 12-20-2023 End: 03-20-2024 ALK PHOS ISOENZYM BL ALK PHOS ISOENZYM BL Lab Routine Elevated alkaline phosphatase level Expected: 12/20/2023, Expires: 03/20/2024 [facility] Work Phone: Comment on above: Expected: 12/20/2023 , Expires: 03/20/2024 Start: 12-20-2023 End: 03-20-2024 CBC W Auto Differential panel - Blood CBC + DIFF Lab Routine Thrombocytopenia (HCC) Expected: 12/20/2023, Expires: 03/20/2024 [facility] Work Phone: Comment on above: Expected: 12/20/2023 , Expires: 03/20/2024 Start: 12-20-2023 End: 03-20-2024 Comprehensive metabolic 2000 panel - Serum or Plasma COMP METABOLIC PANEL Lab Routine Elevated alkaline phosphatase level Expected: 12/20/2023, Expires: 03/20/2024 [facility] Work Phone: Comment on above: Expected: 12/20/2023 , Expires: 03/20/2024 Start: 12-20-2023 End: 03-20-2024 Gamma glutamyl transferase [Enzymatic activity/volume] in Serum or Plasma GGT BLD Lab Routine Elevated alkaline phosphatase level Expected: 12/20/2023, Expires: 03/20/2024 [facility] Work Phone: Comment on above: Expected: 12/20/2023 , Expires: 03/20/2024 Start: 10-03-2023 Covid-19 Vaccine () Covid-19 Vaccine () [facility] Start: 08-23-2023 COLORECTAL CANCER SCREENING COLORECTAL CANCER SCREENING [facility] Start: 08-23-2023 FECAL OCCULT BLOOD FECAL OCCULT BLOO D [facility] Start: 08-23-2023 Screening for malign ant neoplasm of colon [facility] Start: 08-22-2023 ANNUAL PCP TEAM CRUISE COUNSELOR [place] DISEASE VISIT ANNUAL PCP TEAM CHRONIC DISEASE VISIT [facility] Start: 08-22-2023 BP CONTROLLED (<130/80) BP CONTROLLE D (<130/80) [facility] Start: 08-22-2023 SHINGRIX VACCINE (1 of 2) SHINGRIX VACCINE (1 of 2) [facility] Comment on above: Postponed from 05/13 (Declined at this time) Start: 08-18-2023 Advance Directive Discussion Advance Directive Discussion [facility] Start: 08-18-2023 Depression Assessment Depression Ass essment [facility] Start: 05-23-2023 End: 07-23-2023 LIPID PANEL, NONFASTING LIPID PANEL, NONFASTING Lab Routine Hyperlipidemia, unspecified hyperlipidemia type Expected: 05/23/2023, Expires: 07/23/2023 [facility] Work Phone: Comment on above: Expected: 05/23/2023 , Expires: 07/23/2023 Start: 04-18-2023 Covid-19 Vaccine () Covid-19 Vaccine () [facility] Start: 04-18-2023 Influenza vaccination [facility] Start: 02-19-2023 End: 04-21-2023 Comprehensive metabolic 2000 panel - Serum or Plasma [facility] Work Phone: Comment on above: Expected: 02/19/2023 , Expires: 04/21/2023 Start: 02-19-2023 End: 04-21-2023 LIPID PANEL, NONFASTING [facility] Work Phone: Comment on above: Expected: 02/19/2023 , Expires: 04/21/2023 Start: 02-14-2023 Influenza vaccination INFLUENZA (#1) [facility] Comment on above: Postponed from 04/18 (Declined at this time) Start: 11-20-2022 End: 01-20-2023 LIPID PANEL, NONFASTING LIPID PANEL, NONFASTING Lab Routine Coronary artery disease involving [place] heart without angina pectoris, unspecified vessel or lesion type Expected: 11/20/2022, Expires: 01/20/2023 [facility] Work Phone: Comment on above: Expected: 11/20/2022 , Expires: 01/20/2023 Start: 10-15-2022 End: 12-15-2022 Prostate specific Ag [Mass/volume] in Serum or Plasma PSA/PROSTSPECAG DIAG Lab Routine Personal history of prostate cancer Expected: 10/15/2022 (Approximate), Expires: 12/15/2022 [facility] Work Phone: Comment on above: Expected: 10/15/2022 (Approximate), Expires: 12/15/2022 Start: 08-18-2022 ADVANCE DIRECTIVE DISCUSSION ADVANCE DIRECTIVE DISCUSSION [facility] Start: 08-18-2022 DEPRESSION ASSESSMENT DEPRESSION ASS ESSMENT [facility] Start: 08-09-2022 ANNUAL PCP TEAM CRUISE COUNSELOR [place] DISEASE VISIT ANNUAL PCP TEAM CHRONIC DISEASE VISIT [facility] Start: 04-18-2022 Influenza vaccination INFLUENZA (#1) [facility] Start: 02-02-2022 Adult depression screening assessment DEPRESSION SCREENING [facility] Start: 02-02-2022 Hepatitis B surface antibody level LDL CHOLESTEROL [facility] Start: 09-29-2021 COVID-19 VACCINE (4 - Booster for Pfizer series) COVID-19 VACCINE (4 - Booster for Pfizer series) [facility] Start: 08-18-2021 ADVANCE DIRECTIVE DISCUSSION ADVANCE DIRECTIVE DISCUSSION [facility] Start: 06-24-2020 COLORECTAL CANCER SCREENING COLORECTAL CANCER SCREENING [facility] Start: 06-24-2020 FECAL OCCULT BLOOD FECAL OCCULT BLOO D [facility] Start: 2014 RSV Vaccine (1 - 1-d ose 60+ series) RSV Vaccine (1 - 1-dose 60+ series) [facility] Start: 2014 RSV Vaccine (1 - Ris k 60-74 years 1-dose series) RSV Vaccine (1 - Risk 60-74 years 1-dose series) [facility] Start: 2004 SHINGRIX VACCINE (1 of 2) SHINGRIX VACCINE (1 of 2) [facility] Start: 1999 COLOGUARD (FIT-DNA) COLOGUARD (FIT-D NA) [facility] Start: 1999 Colonoscopy COLONOSCOPY [facility] Start: [address] COLONOGRAPHY [facility] Start: 1999 Screening for malign ant neoplasm of colon [facility] Start: 1999 SIGMOIDOSCOPY SIGMOIDOSCOPY [facility] Start: 1972 Anxiety Screening Anxiety Screening [facility] Start: 1972 BP CONTROLLED (<130/80) BP CONTROLLE D (<130/80) [facility] Start: 1972 Depression Screening Depression Scre ening [facility] Hemoglobin.gastroint est inal.lower [Presence] in Stool by Immunoassay FECAL OCCULT BLOOD TEST Lab Routine Screening for colon cancer 08/23/2022 6:18 AM EST [facility] Work Phone: Hemoglobin.gastroint est inal.lower [Presence] in Stool by Immunoassay FECAL OCCULT BLOOD TEST Lab Routine Screening for colon cancer Ordered: 11/19/2023 [facility] Work Phone: Comment on above: Ordered: 11/19/2023 POST VOID RESIDUAL POST VOID RES IDUAL Procedures Routine Personal history of prostate cancer Ordered: 08/16/2022 [facility] Work Phone: Comment on above: Ordered: 08/16/2022 [facility] Immunizations Immunization Date Immunization Notes Care Provider Miguelangel alvarado 05-25-2024 COVID-19 vaccine, ag e 12+ yr (pSivida-LightArrow COMIRNAT) Oliva Wong RETAIL ADVISOR.DOORS PREFITTER Work Phone: [facility] 05-25-2024 influenza, high dose seasonal, preservative-free Oliva Lacylogjasmina RETAIL ADVISOR.DOORS PREFITTER Work Phone: [facility] 06-02-2023 influenza virus vaccine, unspecified formulation Whit Hernandez RETAIL ADVISOR.DOORS PREFITTER Work Phone: [facility] 05-18-2021 influenza, high dose seasonal, preservative-free Vilma Snow MD Work Phone: [facility] 05-18-2021 influenza virus vaccine, unspecified formulation Oliva Lacylogjasmina RETAIL ADVISOR.DOORS PREFITTER Work Phone: [facility] 10-24-2020 COVID-19 vaccine, ag e 12+ yr (PFIZER-BIONTECH - PURPLE TOP) Vilma Snow MD Work Phone: [facility] 10-04-2020 COVID-19 vaccine, ag e 12+ yr (PFIZER-BIONTECH - PURPLE TOP) Vilma Snow MD Work Phone: [facility] 06-21-2019 influenza, high dose seasonal, preservative-free Vilma Snow MD Work Phone: [facility] 06-21-2019 pneumococcal polysaccharide vaccine, 23 valent Vilma Snow MD Work Phone: [facility] 06-12-2018 influenza, injectabl e, quadrivalent, contains preservative Vilma Snow MD Work Phone: [facility] 12-10-2017 tetanus and diphther ia toxoids, adsorbed, preservative free, for adult use (5 Lf of tetanus toxoid and 2 Lf of diphtheria toxoid) Vilma Snow MD Work Phone: [facility] 09-26-2017 pneumococcal conjuga te vaccine, 13 valent Vilma Snow MD Work Phone: [facility] 05-31-2016 influenza, injectabl e, quadrivalent, contains preservative Vilma Snow MD Work Phone: [facility] 07-25-2015 influenza, injectabl e, quadrivalent, contains preservative Vilma Snow MD Work Phone: [facility] 05-27-2014 influenza, seasonal, injectable Vilma Snow MD Work Phone: [facility] 03-03-2007 tetanus toxoid, redu greg diphtheria toxoid, and acellular pertussis vaccine, adsorbed Vilma Snow MD Work Phone: [facility] Work Phone: 11-20-1993 diphtheria and tetan us toxoids, adsorbed for pediatric use Vilma Snow MD Work Phone: [facility] Work Phone: Payers Date Payer Category Payer Medicare AETNA MEDICARE A ETNA MEDICARE PPO [id number] 2021-Present [phone] [address] [place] [address] PPO [id number] 2021 Medicare [id number] 2021 Medicare AETNA MEDICARE A ETNA MEDICARE PPO [id number] 2021-Present [phone] [address] [place] [address] PPO [id number] Social History Date Type Detail Facility Start: 03-23-2012 End: 05-25-2024 Tobacco smoking status NHIS Ex-smoker [facility] Work Phone: Start: 08-18-1969 End: 08-18-1989 History of tobacco use Current smoker [facility] Work Phone: Start: 08-18-1969 End: 08-18-1989 History of tobacco use Cigarette Smoker [facility] Work Phone: Start: 03-23-2012 End: 02-19-2023 Cigarettes smoked current (pack per day) - Reported 1 [facility] Start: 03-23-2012 End: 05-25-2024 Tobacco use and exposure Former smokeless tobacco user [facility] Work Phone: End: 01-16-2017 History of tobacco use Snuff User [facility] Work Phone: Start: 08-14-2021 End: 05-25-2024 Alcohol intake Current drinker of alcohol (finding) [facility] Start: 12-14-2019 History SDOH Alcohol Frequency 2 [facility] Start: 12-14-2019 History SDOH Alcohol Std Drinks 1 [facility] Start: 03-23-2012 History SDOH Alcohol Comment rare-beer [facility] Start: 12-14-2019 History SDOH Social Connections Phone 5 [facility] Start: 12-14-2019 History SDOH Social Connections Get Together 4 [facility] Start: 12-14-2019 History SDOH Social Connections Ep[employer]opalian 3 [facility] Start: 12-14-2019 Education 12 [facility] Start: 1955 Sex Assigned At Male C [facility] Start: 12-14-2019 End: 02-19-2023 Social connection and isolation panel [facility] Do you belong to any clubs or organizations such as shinto groups, unions, fraternal or athletic groups, or school groups? Yes [facility] Are you now , , , , never or living with a partner? [facility] How often to you hav e a drink containing alcohol? Monthly or less [facility] How many standard dr inks containing alcohol do you have on a typical day? 1 or 2 [facility] How often do you hav e 6 or more drinks on 1 occasion? Never [facility] How hard is it for y ou to pay for the very basics like food, housing, medical care, and heating Not hard at all [facility] (I/We) worried [place] (my/our) food would run out before (I/we) got money to buy more. Never true [facility] Start: 02-02-2021 Gender identity Identifies as male gender (finding) [facility] Clinical Notes 09-08-2017 to 05-25-2024 Oliva Wong APRN.ANALY - 05/25/2024 8:21 AM EDTTelephone Encounter - Viridiana Cruz LPN - 03/02/2024 10:35 AM EDTTelephone Encounter - Viridiana Cruz, CLAY PUDDLER - 03/02/2024 10:35 AM EDT Note Date & Type Note Facility 05-25-2024 Note HNO ID: [id number] Author: OLIVA WONG APRN.DOORS PREFITTER Service: ? Author Type: Nurse Practitioner Type: [...] CAD s/p SHANIQUA to LAD: followed with [facility], cardiology on 04/13/2024. No medication changes made at that time. ECHO completed and EF: 55%. Per patient wore a heart monitor and he is skipping some beats. Will be having repeat heart monitor over night again. Reports he will be doing this next week Dyspnea/LESLY: following with [facility] pulmnology with last visit on 2024. [...] Neut (ANC) 1.45 (more content not included)... [facility] 05-25-2024 History of Presen t illness Narrative [...] CAD s/p SHANIQUA to LAD: followed with [facility], cardiology on 04/13/2024. No medication changes made at that time. ECHO completed and EF: 55%. Per patient wore a heart monitor and he is skipping some beats. Will be having repeat heart monitor over night again. Reports he will be doing this next week Dyspnea/LESLY: following with [facility] pulmnology with last visit on 2024. [...] or lesions to exposed skin Latest Ref [facility] 05/24/2024 WBC 3.70 - 11.00 k/uL 5.77 [...] Abs Lymph 1.00 - 4.00 k/uL 1.99 [place]% % 11.3 Abs [place] <0.87 k/uL 0.65 Eosin% % 0.9 Abs [...] YR, HIGH DOSE, TRIVALENT (FLUZONE HIGH-DOSE) - Shyp COVID-19 VACCINE AGE 12+ YR (COMIRNATY) 3. [...] as recommended 8. Coronary artery disease involving [place] heart without angina pectoris, unspecified vessel or [...] 4 - Moderate documented in this encounter [facility] 03-02-2024 Telephone encounter Note Prescription Refill Information [...] Cruz LPN March 02, 2024 10:35 AM [facility] 03-02-2024 Miscellaneous Notes Prescription Refill Information The [...] 2024 10:35 AM documented in this encounter [facility] 01-28-2024 Telephone encounter Note TC to patient who verbalized understanding of providers message below with no questions at this time. JAYANT Sow [facility] 01-28-2024 Miscellaneous Notes TC to patient who [...] or bruising symptoms. documented in this encounter [facility] 01-28-2024 Telephone encounter Note ----- Message from Vilma Snow MD sent at 01/28/2024 1:56 PM EDT ----- Platelet count remains low in the 130's. HIV and hepatitis C testing is negative. At this time, I would recommend continued monitoring and if dropping less than 100, would consider referral to hematology. Recheck at OV in May. Call with new bleeding or bruising symptoms. [facility] 12-24-2023 Telephone encounter Note Patient returned call and went over results, notes from Dr Snow with understanding. Aware lab orders in computer. [facility] 12-24-2023 Miscellaneous Notes Patient returned call and [...] further workup needed. documented in this encounter [facility] 12-24-2023 Telephone encounter Note LM for patient to contact office. Tre Flores MA [facility] 12-24-2023 Telephone encounter Note Repeat alk phos [...] stable or normal, no further workup needed. [facility] 11-20-2023 Miscellaneous Notes Phoned patient and reviewed results and recommendations with him. Patient voiced understanding. Normal labs aside from slightly high alk phos with normal LFTs and slightly low platelet count. Recommend rechecking in 1 month to monitor. documented in this encounter [facility] 11-19-2023 Miscellaneous Notes PSA changed from screening [...] Tre Flores MA documented in this encounter [facility] 11-19-2023 Note HNO ID: [id number] Author: VILMA SNOW MD Service: ? Author [...] CAD s/p SHANIQUA to LAD: managed by [facility] Cardiology. No changes to regimen at [...] DIAGNOSTIC 05/01/2007 EGD ESOPHAGOGASTRODUODENOSCOPY TRANSORAL DIAGNOSTIC 03/21/2013 [facility] EGD PAST SURGICAL HISTORY OF [...] Use: Never used (more content not included)... [facility] 11-19-2023 History of Presen t illness Narrative [...] CAD s/p SHANIQUA to LAD: managed by [facility] Cardiology. No changes to regimen at [...] DIAGNOSTIC 05/01/2007 EGD ESOPHAGOGASTRODUODENOSCOPY TRANSORAL DIAGNOSTIC 03/21/2013 [facility] EGD PAST SURGICAL HISTORY OF [...] asthma, COPD. Patient Allergies ALLERGIES [facility] [* Current Medications Current Outpatient [...] PANEL BASIC 4. Coronary artery disease involving [place] heart without angina pectoris, unspecified vessel or [...] Vilma Snow MD documented in this encounter [facility] 11-18-2023 Miscellaneous Notes Patient has been identified [...] Randa Uribe LPN. documented in this encounter [facility] 07-03-2023 Miscellaneous Notes Rx sent. Phoned patient and reviewed results and recommendations with him. Patient hesitant on increase but finally agreed to trying the 80mg daily and seeing how he tolerates it. ----- Message from Vilma Snow MD sent at 07/02/2023 5:19 PM EST ----- Cholesterol has only come down slightly on Lipitor 40 mg. If tolerating without side effects, would recommend increase to 80 mg daily with recheck at next OV. documented in this encounter [facility] 06-26-2023 Miscellaneous Notes Last office visit: 02/19/23 F/u scheduled: 08/22/23 Jennifer Pena Ma documented in this encounter [facility] 02-20-2023 Miscellaneous Notes Patient notified. Verbalized [...] will send rx. Please fax labs to refinery operator helper crude unit's office. documented in this encounter [facility] 02-19-2023 History of Presen t illness Narrative Chief Complaint Patient presents with: Follow Up HPI Maci Howard is a 67 year old male who presents here today for Above Complaints. CAD s/p SHANIQUA to LAD: managed by [facility] Cardiology. No changes to regimen at [...] stroke prevention. Would like ears checked today. [place] full yesterday and treated with debrox drops. [...] DIAGNOSTIC 05/01/2007 EGD ESOPHAGOGASTRODUODENOSCOPY TRANSORAL DIAGNOSTIC 03/21/2013 [facility] EGD PAST SURGICAL HISTORY OF [...] Abs Lymph 1.00 - 4.00 k/uL 1.73 [place]% % 9.8 Abs [place] <0.87 k/uL 0.65 Eosin% % 0.9 Abs [...] - Avoidance of triggers recommended - notify motor vehicle field representative of worsening symptoms. 2. SOB (shortness of breath) - ICD9: 786.05, ICD10: R06.02 See above 3. Coronary artery disease involving [place] heart without angina pectoris, unspecified vessel or [...] Vilma Snow MD documented in this encounter [facility] 12-16-2022 Miscellaneous Notes Patient has been [...] Tre Flores MA documented in this encounter [facility] 08-22-2022 History of Presen t illness [...] DIAGNOSTIC 05/01/2007 EGD ESOPHAGOGASTRODUODENOSCOPY TRANSORAL DIAGNOSTIC 03/21/2013 [facility] EGD PAST SURGICAL HISTORY OF [...] BP <130/80 2. Coronary artery disease involving [place] heart without angina pectoris, unspecified vessel or lesion type - ICD9: 414.01, ICD10: I25.10 S/p SHANIQUA. On longterm DAPT. Asymptomatic on medical management. No change [...] Vilma Snow MD documented in this encounter [facility] 08-21-2022 Miscellaneous Notes Patient has been [...] Genny Vergara LPN documented in this encounter [facility] 08-16-2022 Instructions Ovi Butcher PA-C - 08/16/2022 8:37 AM EST > PSA in 2 months to check doubling time, if 0.4 or higher will recommend a MRI and Bone Scan documented in this encounter [facility] 08-16-2022 History of Presen t illness Narrative Images from the original note were not included. [facility] EST[facility]LISHED PATIENT CLINIC NOTE [...] DIAGNOSTIC 05/01/2007 EGD ESOPHAGOGASTRODUODENOSCOPY TRANSORAL DIAGNOSTIC 03/21/2013 [facility] EGD PAST SURGICAL HISTORY OF [...] Appointment with Ovi. documented in this encounter [facility] 12-25-2021 Miscellaneous Notes Patient has been [...] Randa Uribe LPN documented in this encounter [facility] 11-13-2021 Miscellaneous Notes CAROLANN 08/09/21 NOV [...] patient. Shellie Bah documented in this encounter [facility] 09-08-2017 History of Past i llness Narrative [...] of this encounter (statuses as of 11/14/2021) [facility] History of Past illness Narrative* Problem [...] of this encounter (statuses as of 12/25/2021) [facility] History of Past illness Narrative* Problem [...] of this encounter (statuses as of 08/21/2022) [facility] History of Past illness Narrative* Problem [...] of this encounter (statuses as of 08/23/2022) [facility] History of Past illness Narrative* Problem [...] of this encounter (statuses as of 09/03/2022) [place] [id number] History of Past illness Narrative* Problem Noted [...] of this encounter (statuses as of 12/16/2022) [facility] History of Past illness Narrative* Problem [...] of this encounter (statuses as of 02/19/2023) [facility] History of Past illness Narrative* Problem [...] of this encounter (statuses as of 02/20/2023) [facility] History of Past illness Narrative* Problem [...] of this encounter (statuses as of 06/27/2023) [facility] of Past illness Narrative* Problem [...] of this encounter (statuses as of 11/18/2023) [facility] History of Past illness Narrative* Problem [...] of this encounter (statuses as of 11/18/2023) [facility] History of Past illness Narrative* Problem [...] of this encounter (statuses as of 11/19/2023) [facility] History of Past illness Narrative* Problem [...] of this encounter (statuses as of 11/20/2023) [facility] History of Past illness Narrative* Problem [...] of this encounter (statuses as of 11/21/2023) [facility] History of Past illness Narrative* Problem [...] of this encounter (statuses as of 12/03/2023) [facility] Diagnosis Personal history of prostate cancer- Primary Personal history of malignant neoplasm of prostate [facility] Diagnosis Essential hypertension- Primary Unspecified essential hypertension Coronary artery disease involving [place] heart without angina pectoris, unspecified vessel or [...] Shortness of breath Coronary artery disease involving [place] heart without angina pectoris, unspecified vessel or [...] bronchitis type (HCC) [facility] Hyperlipidemia, unspecified hyperlipidemia type- Primary [facility] Diarrhea, unspecified type- Primary Essential hypertension Unspecified essential hypertension Hyperlipidemia, unspecified hyperlipidemia type Coronary artery disease involving [place] heart without angina pectoris, unspecified vessel or [...] Primary Thrombocytopenia, unspecified [facility] Diagnosis Esophagitis, unspecified- Primary HYPERLIPIDEMIA NEC/NOS [...] neoplasm of prostate Coronary artery disease involving [place] heart without angina pectoris, unspecified vessel or lesion type History of CVA (cerebrovascular accident) Transient ischemic attack (TIA), and cerebral infarction without residual deficits LESLY on CPAP Obstructive sleep apnea (adult) (pediatric) SOB (shortness of breath) Shortness of breath documented in this encounter [facility] Summary Purpose Family History No Family History Records FoundNo Family History Records Found Advance Directives No Advanced Directives Records FoundDocuments on File Type Date 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 Advance Directive(s) 11/10/2017 10:50 AM Additional Source Comments (unrecognized sect ion and content) No Status Records FoundNo Status Records Found INFORMATION SOURCE (unrecogn ized section and content) DATE CREATED AUTHOR 02/05/2018 [facility] DATE CREATED AUTHOR AUTHOR'S ORGANIZ ATION 05/31/2024 [facility] Source Comments (unrecognize d section and content) In the event this informatio n is protected by the Federal Confidentiality of Alcohol and Drug Abuse Patient Records regulations: The Federal rules restrict any use of the information to criminally investigate or prosecute any alcohol or drug abuse patient.[facility] the event this information is protected by the Federal Confidentiality of Alcohol and Drug Abuse Patient Records regulations: The Federal rules restrict any use of the information to criminally investigate or prosecute any alcohol or drug abuse patient.[facility] the event this information is protected by the Federal Confidentiality of Alcohol and Drug Abuse Patient Records regulations: The Federal rules restrict any use of the information to criminally investigate or prosecute any alcohol or drug abuse patient.[facility] the event this information is protected by the Federal Confidentiality of Alcohol and Drug Abuse Patient Records regulations: The Federal rules restrict any use of the information to criminally investigate or prosecute any alcohol or drug abuse patient.[facility] the event this information is protected by the Federal Confidentiality of Alcohol and Drug Abuse Patient Records regulations: The Federal rules restrict any use of the information to criminally investigate or prosecute any alcohol or drug abuse patient.[facility] the event this information is protected by the Federal Confidentiality of Alcohol and Drug Abuse Patient Records regulations: The Federal rules restrict any use of the information to criminally investigate or prosecute any alcohol or drug abuse patient.[facility] the event this information is protected by the Federal Confidentiality of Alcohol and Drug Abuse Patient Records regulations: The Federal rules restrict any use of the information to criminally investigate or prosecute any alcohol or drug abuse patient.[facility] the event this information is protected by the Federal Confidentiality of Alcohol and Drug Abuse Patient Records regulations: The Federal rules restrict any use of the information to criminally investigate or prosecute any alcohol or drug abuse patient.[facility] the event this information is protected by the Federal Confidentiality of Alcohol and Drug Abuse Patient Records regulations: The Federal rules restrict any use of the information to criminally investigate or prosecute any alcohol or drug abuse patient.[facility] HospitalIn the event this information is protected by the Federal Confidentiality of Alcohol and Drug Abuse Patient Records regulations: The Federal rules restrict any use of the information to criminally investigate or prosecute any alcohol or drug abuse patient.[facility] HospitalIn the event this information is protected by the Federal Confidentiality of Alcohol and Drug Abuse Patient Records regulations: The Federal rules restrict any use of the information to criminally investigate or prosecute any alcohol or drug abuse patient.[facility]In the event this information is protected by the Federal Confidentiality of Alcohol and Drug Abuse Patient Records regulations: The Federal rules restrict any use of the information to criminally investigate or prosecute any alcohol or drug abuse patient.[facility] HospitalIn the event this information is protected by the Federal Confidentiality of Alcohol and Drug Abuse Patient Records regulations: The Federal rules restrict any use of the information to criminally investigate or prosecute any alcohol or drug abuse patient.[facility] HospitalIn the event this information is protected by the Federal Confidentiality of Alcohol and Drug Abuse Patient Records regulations: The Federal rules restrict any use of the information to criminally investigate or prosecute any alcohol or drug abuse patient.[facility] HospitalIn the event this information is protected by the Federal Confidentiality of Alcohol and Drug Abuse Patient Records regulations: The Federal rules restrict any use of the information to criminally investigate or prosecute any alcohol or drug abuse patient.[facility] HospitalIn the event this information is protected by the Federal Confidentiality of Alcohol and Drug Abuse Patient Records regulations: The Federal rules restrict any use of the information to criminally investigate or prosecute any alcohol or drug abuse patient.[facility] HospitalIn the event this information is protected by the Federal Confidentiality of Alcohol and Drug Abuse Patient Records regulations: The Federal rules restrict any use of the information to criminally investigate or prosecute any alcohol or drug abuse patient.[facility] HospitalIn the event this information is protected by the Federal Confidentiality of Alcohol and Drug Abuse Patient Records regulations: The Federal rules restrict any use of the information to criminally investigate or prosecute any alcohol or drug abuse patient.[facility] HospitalIn the event this information is protected by the Federal Confidentiality of Alcohol and Drug Abuse Patient Records regulations: The Federal rules restrict any use of the information to criminally investigate or prosecute any alcohol or drug abuse patient.[facility] Reason for Visit (unrecogniz ed section and content) Reason Onset Date Comments Refill Request 11/13/2021 Reason Onset Date Comments Refill Request 12/25/2021 Reason Comments Follow Up Specialty Diagnoses / Procedures Referred By Chato da silva Referred To Contact Urology Diagnoses Personal history of prostate cancer Procedures CONSULT TO UROLOGY NEW PATIENT VISIT LEVEL 5 Vilma Snow MD [address] [place] [address] Referral ID Status Reason Start Date Expiration Date V isits Requested Visits Authorized [id number] Closed PCP Requested Referral 08/09/2021 08/09/2022 1 [...] Care Teams (unrecognized sec tion and content) 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 Relationship Specialty Start Date End Date Vilma Snow MD [address] [facility] [place] [address] PCP - General Family Practice 12/06/16 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 Relationship Specialty Start Date End Date Vilma Snow MD [address] [place] [place] [address] PCP - General Family Practice 12/06/16 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 Relationship Specialty Start Date End Date Vilma Snow MD [address] [place] [place] [address] PCP - General Family Medicine 12/06/16 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 Relationship Specialty Start Date End Date Vilma Snow MD [address] [place] [address] PCP - General Family Medicine 12/06/16 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 Relationship Specialty Start Date End Date Vilma Snow MD [address] [place] [place] [address] PCP - General Family Medicine 12/06/16 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 Relationship Specialty Start Date End Date Vilma Snow MD [address] [facility] [place] [address] PCP - General Family Medicine 12/06/16 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 Relationship Specialty Start Date End Date Vilma Snow MD [address] [place] [place] [address] PCP - General Family Medicine 12/06/16 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 Relationship Specialty Start Date End Date Vilma Snow MD [address] [place] [address] PCP - General Family Medicine 12/06/16 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 Relationship Specialty Start Date End Date Vilma Snow MD [address] [place] [place] [address] PCP - General Family Medicine 12/06/16 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 Relationship Specialty Start Date End Date Vilma Snow MD [address] [place] [place] [address] PCP - General Family Medicine 12/06/16 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 Relationship Specialty Start Date End Date Vilma Snow MD [address] [place] [address] PCP - General Family Medicine 12/06/16 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 Relationship Specialty Start Date End Date Vilma Snow MD [address] [place] [address] PCP - General Family Medicine 12/06/16 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 Relationship Specialty Start Date End Date Vilma Snow MD [address] [place] [address] PCP - General Family Medicine 12/06/16 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 [facility] [employer] [facility]. provides no warranty or guarantee of the accuracy or completeness of information in this document.
[2024-06-11] MEDS: Mepolizumab 100 MG VIAL SC (09:37)
== END 2024-06-11 23:59 | disposition home or self-care (01) ==
LOC: MEDOUTP 08:56
PROVIDERS: PCP Family Medicine; Referring Provider Nurse Practitioner Acute Care; Visit Provider Nurse Practitioner Acute Care
DX: J45.50 Severe persistent asthma, uncomplicated (principal)
CPT/HCPCS: 96372; J2182

== ENCOUNTER → 2024-06-11 | Outpatient (CLI) | payer MEDICARE, SELFPAY ==
[2017-05-16 09:58] VITALS: BMI 30.9
--- OUTSIDE RECORDS SUMMARY | 2024-06-11 06:59 | XMS RPT_ITS | CCD ---
Author Organization [facility] Care Team Providers Care Marketing Project Manager Name Role Phone YOUSUF JEWELL Unavailable Unavailable YOUSUF JEWELL Unavailable Unavailable YOUSUF JEWELL Unavailable Vilma Snow MD Primary Care Provider Vimla Snow MD Primary Care Provider Vilma Snow MD Primary Care Provider VILMA SNOW Referring Unavailab VILMA Asencio Primary Care Unavailab VILMA Asencio Attending Unavailab VILMA Asencio Primary Care Unavailab VILMA Asencio Referring Unavailab VILMA Asencio Primary Care Unavailab VILMA Asencio Primary Care Unavailab le OLIVA WONG Attending Unavailable VILMA SNOW Referring Unavailab VILMA Asencio Primary Care Unavailab VILMA Asencio Referring Unavailab VILMA Asencio Primary Care Unavailab VILMA Asencio Referring Unavailab VILMA Asencio Primary Care Unavailab le Allergies Allergy Classification Reported Allergen(s) Allergy Type Date of Onset Reaction(s) Facility (20 sources) chlorzoxazone; Translations: [CHLORZOXAZONE] Drug Allergy 03-11-2006 [facility] Repository Medications Current Medications Medication Drug Class(es) Dates Sig (Normalized) Sig (Original) [id number] 200 actuat albuterol 0.09 mg/actuat metered dose inhaler (20 sources) beta2-Adrenergic Agonist Start: 01-23-2017 take 2 puff(s) by inhalation every four hours as needed albuterol HFA (VENTOLIN HFA) 90 mcg/actuation inhaler Indications: Moderate persistent asthma without complication Inhale 2 Puffs as instructed every 4 hours as needed. 1 Inhaler 3 01/23/2017 Active albuterol sulfat e (PROAIR HFA INHALATION) Inhale as instructed as needed. Active albuterol sulfat e (PROAIR HFA INHALATION) Inhale as instructed as needed. 0 Active Comment on above: Inhale 2 Puffs as in structed every 4 hours as needed. Inhale as instructed as needed. aspirin 81 mg chewable tablet (19 sources) Platelet Aggregation Inhibitor, Nonsteroidal Anti-inflammatory Drug take 1 tablet by mouth once daily aspirin 81 mg chewable tablet Take 81 mg by mouth once daily. Active Comment on above: Take 81 mg by mouth once daily. atorvastatin 80 mg oral tablet (20 sources) HMG-CoA Reductase Inhibitor Start: End: take 1 tablet by mouth once daily atorvastatin (LIPITOR) 80 mg tablet Take 1 tablet by mouth once daily. 90 tablet 1 03/02/2024 08/29/2024 Active Start: 02-20-2023 End: 08-19-2023 take 1 tablet by mouth once daily atorvastatin (LIPITOR) 40 mg tablet Take 1 tablet by mouth once daily. 90 tablet 1 02/20/2023 07/03/2023 Discontinued Start: 2022 End: 08-18-2023 take 1 tablet by mouth once daily atorvastatin (LIPITOR) 20 mg tablet Take 1 tablet by mouth once daily. 90 tablet 1 02/19/2023 02/20/2023 Discontinued Start: 05-14-2021 End: 11-13-2021 take 1 tablet by mouth once daily atorvastatin (LIPITOR) 20 mg tablet Take 1 tablet by mouth once daily. 90 tablet 1 11/14/2021 Active Comment on above: Take 1 tablet by andreea th once daily. clopidogrel 75 mg oral tablet (20 sources) P2Y12 Platelet Inhibitor Start: 06-18-2022 End: 11-18-2023 take 1 tablet by mouth once daily clopidogrel (PLAVIX) 75 mg tablet Take 1 tablet by mouth once daily. 90 tablet 1 11/18/2023 Active Start: 05-14-2021 End: 12-25-2021 take 1 tablet by mouth once daily clopidogrel (PLAVIX) 75 mg tablet Take 1 tablet by mouth once daily. 90 tablet 1 12/25/2021 Active Comment on above: Take 1 tablet by andreea th once daily. CPAP (19 sources) CPAP Active CPAP fluticasone propionate 0.05 mg/actuat metered dose nasal spray (19 sources) Corticosteroid Start: 08-25-2018 take 2 spray(s) by mouth once daily fluticasone (FLONASE) 50 mcg/actuation nasal spray Indications: Acute recurrent sinusitis, unspecified location Use 2 Sprays in each nostril once daily. Rinse mouth after use. 16 g 2 08/25/2018 Active Comment on above: Use 2 Sprays in each nostril once daily. Rinse mouth after use. losartan potassium 25 mg oral tablet (20 sources) Angiotensin 2 Receptor Noemí Start: 2022 End: 08-29-2024 take 0.5 tablet by mouth once daily losartan (COZAAR) 25 mg tablet Take 0.5 tablets by mouth once daily. 45 tablet 1 03/02/2024 08/29/2024 Active Start: 05-14-2021 End: 11-13-2021 take 0.5 tablet by mouth once daily losartan (COZAAR) 25 mg tablet Take 0.5 tablets by mouth once daily. 45 tablet 1 11/14/2021 Active Comment on above: Take 0.5 tablets by mouth once daily. 1 ml mepolizumab 100 mg/ml auto-injector (19 sources) Interleukin-5 Antagonist Start: 019 NUCALA 100 mg/mL injection Inject 100 mg subcutaneously every 4 weeks. 06/18/2019 Active Comment on above: Inject 100 mg subcut aneously every 4 weeks. montelukast 10 mg oral tablet (19 sources) Leukotriene Receptor Antagonist Start: 017 take 1 tablet by mouth once daily at bedtime montelukast (SINGULAIR) 10 mg tablet Take 1 tablet by mouth daily at bedtime. 0 06/12/2017 Active Comment on above: Take 1 tablet by andreea th daily at bedtime. NITROGLYCERIN SUBLINGUAL (19 sources) NITROGLYCERIN SUBLINGUAL Dissolve under the tongue as needed. Active NITROGLYCERIN LANDIS BLINGUAL Dissolve under the tongue as needed. 0 Active Comment on above: Dissolve under the t ongue as needed. pantoprazole 20 mg delayed release oral tablet (20 sources) Proton Pump Inhibitor Start: 2022 End: 03-02-[address] (PROTONIX) 20 mg tablet TAKE 1 TABLET DAILY BEFORE BREAKFAST. TAKE ON AN EMPTYSTOMACH, 1/2 HOUR BEFORE A MEAL. 90 tablet 1 03/02/2024 Active Start: 05-14-2021 End: 11-13-[address] (PROTONIX) 2 0 mg tablet TAKE 1 TABLET DAILY BEFORE BREAKFAST. TAKE ON AN EMPTYSTOMACH, 1/2 HOUR BEFORE A MEAL. 90 tablet 1 11/14/2021 Active Comment on above: TAKE 1 TABLET DAILY BEFORE BREAKFAST. TAKE ON AN EMPTYSTOMACH, 1/2 HOUR BEFORE A MEAL. Completed/Discontinued Medications Medication Drug Class(es) Dates Sig (Normalized) Sig (Original) 30 actuat fluticasone furoate 0.2 mg/actuat / vilanterol 0.025 mg/actuat dry powder inhaler (5 sources) Corticosteroid, beta2-Adrenergic Agonist End: 08-22-2022 fluticasone-vilante rol (BREO ELLIPTA) 200-25 mcg/dose inhaler Breo Ellipta 200 mcg-25 mcg/dose powder for inhalation 0 08/22/2022 Discontinued Comment on above: Breo Ellipta 200 mcg -25 mcg/dose powder for inhalation Problems Active Problems Problem Classification Problem Date Documented Da te Episodic/Chronic Acute cerebrovascular disease (20 sources) Cerebrovascular accident; Translations: [Cerebral infarction, unspecified] Onset: 4 08-09-2014 Chronic Anxiety disorders (1 source) Mixed anxiety and depressive disorder; Translations: [Other specified anxiety disorders] Chronic Asthma (20 sources) Uncomplicated severe persistent asthma; Translations: [Severe persistent asthma, uncomplicated] Onset: 0 12-20-2019 Chronic Cancer of prostate (13 sources) Malignant tumor of prostate; Translations: [Malignant neoplasm of prostate] Onset: 3 Resolved: 3 05-26-2013 Chronic Cardiac and circulatory congenital anomalies (19 sources) Patent foramen ovale; Translations: [Atrial septal defect] Onset: 5 02-12-2015 Chronic Chronic obstructive pulmonary disease and bronchiectasis (15 sources) Chronic bronchitis; Translations: [Unspecified chronic bronchitis] Onset: 3 Chronic Coagulation and hemorrhagic disorders (4 sources) Thrombocytopenic disorder; Translations: [Thrombocytopenia, unspecified] Onset: 4 11-20-2023 Chronic Coronary atherosclerosis and other heart disease (20 sources) Coronary arteriosclerosis; Translations: [Atherosclerotic heart disease of [place] coronary artery without angina pectoris] Onset: 7 06-02-2017 Chronic Disorders of lipid metabolism (20 sources) Hyperlipidemia; Translations: [Hyperlipidemia, unspecified] Onset: 8 Resolved: 8 01-17-2014 Chronic Esophageal disorders (20 sources) Gastroesophageal reflux disease; Translations: [Gastro-esophageal reflux disease without esophagitis] Onset: 4 01-17-2014 Chronic Essential hypertension (20 sources) Essential hypertension; Translations: [Essential (primary) hypertension] Onset: 1 08-09-2021 Chronic Hypertension with complications and secondary hypertension (19 sources) Hypertensive heart disease; Translations: [Hypertensive heart disease without heart failure] Onset: 4 06-15-2014 Chronic Immunizations and screening for infectious disease (2 sources) Patient encounter status; Translations: [Encounter for immunization] Onset: 4 05-25-2024 Episodic Other circulatory disease (20 sources) History of cerebrovascular accident; Translations: [Personal history of transient ischemic attack (TIA), and cerebral infarction without residual deficits] Onset: 4 11-29-2016 Episodic Other ear and sense organ disorders (1 source) Ear sensations - finding; Translations: [Other specified disorders of ear, bilateral] Episodic Other gastrointestinal disorders (19 sources) Dysphagia; Translations: [Dysphagia] 02-26-2007 Episodic Other gastrointestinal disorders (1 source) Diarrhea; Translations: [Diarrhea, unspecified] 11-19-2023 Episodic Other liver diseases (2 sources) Alkaline phosphatase raised; Translations: [Abnormal levels of other serum enzymes] 11-20-2023 Episodic Other liver diseases (1 source) Abnormal levels of other serum enzymes; Translations: [Elevated alkaline phosphatase level] Onset: 4 Episodic Other lower respiratory disease (20 sources) Dyspnea; Translations: [Shortness of breath] Onset: 8 09-08-2017 Episodic Other nutritional; endocrine; and metabolic disorders (2 sources) Obese class I; Translations: [Obesity, Class I, BMI 30-34.9] Onset: 4 05-25-2024 Chronic Residual codes; unclassified (20 sources) Obstructive sleep apnea syndrome; Translations: [Obstructive sleep apnea (adult) (pediatric)] Onset: 6 Resolved: 7 08-23-2015 Chronic Residual codes; unclassified (1 source) Obstructive sleep apnea (adult) (pediatric); Translations: [LESLY on CPAP] Onset: 6 Chronic Unclassified (1 source) Obesity, Class I, BMI 30-34.9; Translations: [Obesity, Class I, BMI 30-34.9] Onset: 4 Past or Other Problems Problem Classification Problem Date Documented Date Episodic/Chronic Abdominal hernia (19 sources) Diaphragmatic hernia; Translations: [Diaphragmatic hernia without obstruction or gangrene] Onset: 05-01-2007 05-01-2007 Episodic Cancer of prostate (18 sources) History of malignant neoplasm of prostate; Translations: [Personal history of malignant neoplasm of prostate] Onset: 02-19-2023 Episodic Esophageal disorders (19 sources) Esophagitis; Translations: [Esophagitis, unspecified] Onset: 05-01-2007 05-26-2013 Episodic Mood disorders (4 sources) Depressive disorder; Translations: [Depression] Resolved: 12-11-2018 12-11-2018 Chronic Other aftercare (4 sources) Long-term current use of anticoagulant; Translations: [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] Onset: 08-09-2014 Resolved: 09-10-2017 09-10-2017 Episodic Other circulatory disease (1 source) Personal history of transient ischemic attack (TIA), and cerebral infarction without residual deficits; Translations: [History of CVA (cerebrovascular accident)] Onset: 11-29-2016 Episodic Other lower respiratory disease (3 sources) Shortness of breath; Translations: [Cough] Onset: 09-08-2017 Episodic Other lower respiratory disease (4 sources) Cough; Translations: [Cough] Onset: 09-08-2017 Resolved: 12-10-2017 12-10-2017 Episodic Other lower respiratory disease (4 sources) Wheezing; Translations: [Wheezing] Onset: 09-08-2017 Resolved: 12-10-2017 12-10-2017 Episodic Other screening for suspected conditions (not mental disorders or infectious disease) (20 sources) Raised prostate specific antigen; Translations: [Elevated prostate specific antigen [PSA]] Onset: 01-19-2008 08-13-2021 Episodic Residual codes; unclassified (4 sources) Sleep apnea; Translations: [Sleep apnea, unspecified] Onset: 12-14-2014 Resolved: 06-02-2017 06-02-2017 Chronic Residual codes; unclassified (19 sources) Family history of prostate cancer; Translations: [Family history of malignant neoplasm of prostate] Onset: 01-19-2008 01-19-2008 Episodic Residual codes; unclassified (1 source) Acquired absence of other genital organ(s); Translations: [S/P prostatectomy] Onset: 02-19-2023 Episodic Results Test Name Value Interpretation Reference Range Facility [facility]OV[facility] 05-25-2024 CNOV Office Visit (DOUG ) MAIC HOWARD ([id number]) 1955 M Date Time Provider Department 05/25/24 8:20 AM OLIVA WONG During your visit today, we recorded the following information about you: Pulse Respiration Blood pressure Weight 59/minute 18/minute 124/88 103.3 kg Oliva Wong APRN.CNP 05/25/2024 10:38 AM Signed 05/25/2024 Patient presents with: F/U 6 months SUBJECTIVE: This is a 69 year old that is here today for Above Complaints. Since last office visit has been in good health without ER visits or hospitalizations. HTN: Patient is compliant with meds Yes Monitors bp at home: No. Denies side effects: Yes. Chest pain: No. Dyspnea: Yes- per patient has COPD Edema: only when he rides long distances in a car. Palpitations: No. Syncope: No. Headache: No. Dizziness: at times CAD s/p SHANIQUA to LAD: followed with [facility], cardiology on 04/13/2024. No medication changes made at that time. ECHO completed and EF: 55%. Per patient wore a heart monitor and he is skipping some beats. Will be having repeat heart monitor over night again. Reports he will be doing this next week Dyspnea/LESLY: following with [facility] pulmnology with last visit on 2024. No medication changes at that time. Uses CPAP as ordered Hx of prostate cancer: Last PSA 6 months ago and stable. No urinary issues Hx of CVA: taking Plavix as prescribed. Denies visual changes, headaches, lightheadedness, dizziness, slurred speech, facial drooping, extremity numbness, tingling or weakness Hx of Thrombocytopenia: denies bleeding symptoms PAST MEDICAL HISTORY Diagnosis Date Anxiety Asthma Childhood. 10/2017 bronchoscopy/biopsy with inflammation, eosinophils. CAD (coronary artery disease) s/p SHANIQUA to LAD, seeing Dr. Llanos Depression Diaphragmatic hernia without mention of obstruction or gangrene Dyslipidemia Dysphagia Dyspnea With wheezing. Spirometry w/o obstruction 02/01 and 06/03. Has seen Dr. Pearl Esophagitis, unspecified Essential hypertension GERD (gastroesophageal reflux disease) History of CVA (cerebrovascular accident) 06/20/2014 mild History of prostate cancer Obesity (BMI 30.0-34.9) LESLY (obstructive sleep apnea) Consistently compliant with CPAP. PFO (patent foramen ovale) Prostate cancer (HCC) 2012 s/p prostatectomy, [place] S/P prostatectomy ALLERGIES Parafon Forte Dsc [Chlorzoxazone] MEDICATIONS Current Outpatient Medications Medication Sig losartan (COZAAR) 25 mg tablet Take 0.5 tablets by mouth once daily. pantoprazole DR (PROTONIX) 20 mg tablet TAKE 1 TABLET DAILY BEFORE BREAKFAST. TAKE ON AN EMPTYSTOMACH, 1/2 HOUR BEFORE A MEAL. atorvastatin (LIPITOR) 80 mg tablet Take 1 tablet by mouth once daily. clopidogrel (PLAVIX) 75 mg tablet Take 1 tablet by mouth once daily. albuterol sulfate (PROAIR HFA INHALATION) Inhale as instructed as needed. NUCALA 100 mg/mL injection Inject 100 mg subcutaneously every 4 weeks. fluticasone (FLONASE) 50 mcg/actuation nasal spray Use 2 Sprays in each nostril once daily. Rinse mouth after use. montelukast (SINGULAIR) 10 mg tablet Take 1 tablet by mouth daily at bedtime. NITROGLYCERIN SUBLINGUAL Dissolve under the tongue as needed. CPAP albuterol HFA (VENTOLIN HFA) 90 mcg/actuation inhaler Inhale 2 Puffs as instructed every 4 hours as needed. aspirin 81 mg chewable tablet Take 81 mg by mouth once daily. No current facility-administered medications for this visit. Medications and allergies reviewed by this provider. SOCIAL HISTORY Social History Tobacco Use Smoking status: Former Current packs/day: 0.00 Average packs/day: 1 pack/day for 20.0 years (20.0 ttl pk-yrs) Types: Cigarettes Start date: 08/18/1969 Quit date: 08/18/1989 Years since quittin.7 Smokeless tobacco: Former Types: Snuff Quit date: 01/16/2017 Vaping Use Vaping status: Never Used Substance Use Topics Alcohol use: Yes Alcohol/week: 1.0 standard drink of alcohol Types: 1 Cans of Beer (12oz) per week Comment: rare-beer Drug use: No REVIEW OF SYSTEMS All other reviewed and negative other than HPI. OBJECTIVE: BP 124/88 Pulse (!) 59 Resp 18 Wt 103.3 kg (227 lb 11.8 oz) SpO2 96% BMI (P) 30.05 kg/m? . Vital signs reviewed by this provider. APPEARANCE Well appearing, alert, in no acute distress, well-hydrated, well nourished. EYES conjunctiva and sclera normal. NECK Supple, no adenopathy; thyroid symmetric, normal size, no bruits HEART RRR with normal S1 and S2, no murmurs, no gallops, no JVD appreciated LUNG clear to auscultation. No wheezes, rhonchi or rales EXTREMITIES Extremities normal, No deformities, No skin discoloration, and No edema SKIN Skin color, texture, turgor normal, no suspicious rashes or lesions to exposed skin Latest Ref Rng 05/24/2024 WBC 3.70 - 11.00 k/uL 5.77 RBC 4.20 - 6.00 m/uL 4.91 Hemoglobin (more content not included)... Normal [facility] CBC W Auto Differential pane l (Bld)on 05-24-2024 Basophils (Bld) [#/Vol] 0.04 10*3/uL Normal <0.11 [facility] Comment on above: Order Comment: Speci men Type: BLOOD SPECIMEN Ordering Facility: [facility] Address: [address] [place], [place] [address], [place] [address] Performed By: #### 5 7021-8 #### [facility] CLIA [id number] [address] [place] [address] [place] Basophils/100 WBC (Bld) 0.7 % Normal [facility] Comment on above: Order Comment: Speci men Type: BLOOD SPECIMEN Ordering Facility: [facility] Address: [address] [place] [address] Performed By: #### 5 7021-8 #### [facility] CLIA [id number] [address] [place] [address] [place] Differential cell count method Nom (Bld) Auto Normal [facility] Comment on above: Order Comment: Speci men Type: BLOOD SPECIMEN Ordering Facility: [facility] Address: [address] [place] [address] Performed By: #### 5 7021-8 #### [facility] CLIA [id number] [address] [place] [address] [place] Eosinophils (Bld) [#/Vol] 0.05 10*3/uL Normal <0.46 [facility] Comment on above: Order Comment: Speci men Type: BLOOD SPECIMEN Ordering Facility: [facility] Address: [address] [place] [address] Performed By: #### 5 7021-8 #### [facility] CLIA [id number] [address] [place] [address] [place] Eosinophils/100 WBC (Bld) 0.9 % Normal [facility] Comment on above: Order Comment: Speci men Type: BLOOD SPECIMEN Ordering Facility: [facility] Address: [address] [place] [address] Performed By: #### 5 7021-8 #### [facility] CLIA [id number] [address] [place] [address] [place] Erythrocyte distribution width (RBC) [Ratio] 13.2 % Normal 11.5-15.0 [facility] Comment on above: Order Comment: Speci men Type: BLOOD SPECIMEN Ordering Facility: [facility] Address: [address] [place], [place] [id number] Performed By: #### 5 7021-8 #### [facility] CLIA [id number] [address] [place] [address] [place] Hematocrit (Bld) [Volume fraction] 45.9 % Normal 39.0-51.0 [facility] Comment on above: Order Comment: Speci men Type: BLOOD SPECIMEN Ordering Facility: [facility] Address: [address] [place] [address] Performed By: #### 5 7021-8 #### [facility] CLIA [id number] [address] [place] [address] [place] Hemoglobin (Bld) [Mass/Vol] 15.9 g/dL Normal 13.0-17.0 [facility] Comment on above: Order Comment: Speci men Type: BLOOD SPECIMEN Ordering Facility: [facility] Address: [address] [place] [address] Performed By: #### 5 7021-8 #### [facility] CLIA [id number] [address] [place] [address] [place] Immature granulocytes (Bld) [#/Vol] 0.06 10*3/uL Normal <0.10 [facility] Comment on above: Order Comment: Speci men Type: BLOOD SPECIMEN Ordering Facility: [facility] Address: [address] [place], [place] [address] Performed By: #### 5 7021-8 #### [facility] CLIA [id number] [address] [place] [address] [place] Immature granulocytes/100 WBC (Bld) 1.0 % Normal [facility] Comment on above: Order Comment: Speci men Type: BLOOD SPECIMEN Ordering Facility: [facility] Address: [address] [place], [place] [address] Performed By: #### 5 7021-8 #### [facility] CLIA [id number] [address] [place] [address] [place] Lymphocytes (Bld) [#/Vol] 1.99 10*3/uL Normal 1.00-4.00 [facility] Comment on above: Order Comment: Speci men Type: BLOOD SPECIMEN Ordering Facility: [facility] Address: [address] [place], [place] [address] Performed By: #### 5 7021-8 #### [facility] CLIA [id number] [address] [place] [address] [place] Lymphocytes/100 WBC (Bld) 34.5 % Normal [facility] Comment on above: Order Comment: Speci men Type: BLOOD SPECIMEN Ordering Facility: [facility] Address: [address] [place], [place] [address] Performed By: #### 5 7021-8 #### [facility] CLIA [id number] [address] [place] [address] [place] MCH (RBC) [Entitic mass] 32.4 pg Normal 26.0-34.0 [facility] Comment on above: Order Comment: Speci men Type: BLOOD SPECIMEN Ordering Facility: [facility] Address: [address] [place] [address] Performed By: #### 5 7021-8 #### [facility] CLIA [id number] [address] [place] [address] [place] MCHC (RBC) [Mass/Vol] 34.6 g/dL Normal 30.5-36.0 [facility] Comment on above: Order Comment: Speci men Type: BLOOD SPECIMEN Ordering Facility: [facility] Address: [address] [place] [address] Performed By: #### 5 7021-8 #### [facility] CLIA [id number] [address] [place] [address] [place] MCV (RBC) [Entitic vol] 93.5 fL Normal 80.0-100.0 [facility] Comment on above: Order Comment: Speci men Type: BLOOD SPECIMEN Ordering Facility: [facility] Address: [address] [place] [address] Performed By: #### 5 7021-8 #### [facility] CLIA [id number] [address] [place] [address] [place] Monocytes (Bld) [#/Vol] 0.65 10*3/uL Normal <0.87 [facility] Comment on above: Order Comment: Speci men Type: BLOOD SPECIMEN Ordering Facility: [facility] Address: [address] [place] [address] Performed By: #### 5 7021-8 #### [facility] CLIA [id number] [address] [place] [address] [place] Monocytes/100 WBC (Bld) 11.3 % Normal [facility] Comment on above: Order Comment: Speci men Type: BLOOD SPECIMEN Ordering Facility: [facility] Address: [address] [place] [address] Performed By: #### 5 7021-8 #### [facility] CLIA [id number] [address] [place] [address] [place] Neutrophils (Bld) [#/Vol] 2.98 10*3/uL Normal 1.45-7.50 [facility] Comment on above: Order Comment: Speci men Type: BLOOD SPECIMEN Ordering Facility: [facility] Address: [address] [place] [address] Performed By: #### 5 7021-8 #### [facility] CLIA [id number] [address] [place] [address] [place] Neutrophils/100 WBC (Bld) 51.6 % Normal [facility] Comment on above: Order Comment: Speci men Type: BLOOD SPECIMEN Ordering Facility: [facility] Address: [address] [place] [address] Performed By: #### 5 7021-8 #### [facility] CLIA [id number] [address] [place] [address] [place] Nucleated RBC (Bld) [#/Vol] 10*3/uL Normal <0.01 [facility] Comment on above: Order Comment: Speci men Type: BLOOD SPECIMEN Ordering Facility: [facility] Address: [address] [place] [address] Performed By: #### 5 7021-8 #### [facility] CLIA [id number] [address] [place] [address] [place] Nucleated RBC/100 WBC (Bld) [Ratio] 0.0 /100 WBC Normal [facility] Comment on above: Order Comment: Speci men Type: BLOOD SPECIMEN Ordering Facility: [facility] Address: [address] [place] [address] Performed By: #### 5 7021-8 #### [facility] CLIA [id number] [address] [place] [address] [place] Platelet mean volume (Bld) [Entitic vol] 8.5 fL Low 9.0-12.7 [facility] Comment on above: Order Comment: Speci men Type: BLOOD SPECIMEN Ordering Facility: [facility] Address: [address] [place] [address] Performed By: #### 5 7021-8 #### [facility] CLIA [id number] [address] [place] [address] [place] Platelets (Bld) [#/Vol] 131 10*3/uL Low 150-400 [facility] Comment on above: Order Comment: Speci men Type: BLOOD SPECIMEN Ordering Facility: [facility] Address: [address] [place] [address] Performed By: #### 5 7021-8 #### [id number] [address] [place] [address] [place] RBC (Bld) [#/Vol] 4.91 10*6/uL Normal 4.20-6.00 [facility] Comment on above: Order Comment: Speci men Type: BLOOD SPECIMEN Ordering Facility: [facility] Address: [address] [place] [address] Performed By: #### 5 7021-8 #### [facility] CLIA [id number] [address] [place] [address] [place] WBC (Bld) [#/Vol] 5.77 10*3/uL Normal 3.70-11.00 [facility] Comment on above: Order Comment: Speci men Type: BLOOD SPECIMEN Ordering Facility: [facility] Address: [address] [place] [address] Performed By: #### 5 7021-8 #### [facility] [id number] [address] [place] [address] [place] Comprehensive metabolic 2000 panelon 05-24-2024 Albumin [Mass/Vol] 4.0 g/dL Normal 3.9-4.9 [facility] Comment on above: Order Comment: Speci men Type: BLOOD SPECIMEN Ordering Facility: [facility] Address: [address] [place] [address] Performed By: #### 5 7021-8 #### [facility] [id number] [address] [place] [address] [place] ALP [Catalytic activity/Vol] 145 U/L High 38-113 [facility] Comment on above: Order Comment: Speci men Type: BLOOD SPECIMEN Ordering Facility: [facility] Address: [address] [place] [address] Performed By: #### 5 7021-8 #### [facility] CLIA [id number] [address] [place] [address] [place] ALT [Catalytic activity/Vol] 21 U/L Normal 10-54 [facility] Comment on above: Order Comment: Speci men Type: BLOOD SPECIMEN Ordering Facility: [facility] Address: [address] [place] [address] Performed By: #### 5 7021-8 #### [facility] CLIA [id number] [address] [place] [address] [place] Anion gap [Moles/Vol] 10 mmol/L Normal 8-15 [facility] Comment on above: Order Comment: Speci men Type: BLOOD SPECIMEN Ordering Facility: [facility] Address: [address] [place] [address] Performed By: #### 5 7021-8 #### [facility] CLIA [id number] [address] [place] [address] [place] AST [Catalytic activity/Vol] 20 U/L Normal 14-40 [facility] Comment on above: Order Comment: Speci men Type: BLOOD SPECIMEN Ordering Facility: [facility] Address: [address] [place] [address] Performed By: #### 5 7021-8 #### [facility] CLIA [id number] [address] [place] [address] [place] Bilirubin [Mass/Vol] 0.8 mg/dL Normal 0.2-1.3 [facility] Comment on above: Order Comment: Speci men Type: BLOOD SPECIMEN Ordering Facility: [facility] Address: [address] [place] [address] Performed By: #### 5 7021-8 #### [facility] CLIA [id number] [address] [place] [address] [place] Calcium [Mass/Vol] 9.1 mg/dL Normal 8.5-10.2 [facility] Comment on above: Order Comment: Speci men Type: BLOOD SPECIMEN Ordering Facility: [facility] Address: [address] [place] [address] Performed By: #### 5 7021-8 #### [facility] CLIA [id number] [address] [place] [address] [place] Chloride [Moles/Vol] 106 mmol/L Normal 98-107 [facility] Comment on above: Order Comment: Speci men Type: BLOOD SPECIMEN Ordering Facility: [facility] Address: [address] [place] [address] Performed By: #### 5 7021-8 #### [facility] CLIA [id number] [address] [place] [address] [place] CO2 [Moles/Vol] 22 mmol/L Normal 22-30 [facility] Comment on above: Order Comment: Speci men Type: BLOOD SPECIMEN Ordering Facility: [facility] Address: [address] [place] [address] Performed By: #### 5 7021-8 #### [facility] CLIA [id number] [address] [place] [address] [place] Creatinine [Mass/Vol] 0.88 mg/dL Normal 0.73-1.22 [facility] Comment on above: Order Comment: Speci men Type: BLOOD SPECIMEN Ordering Facility: [facility] Address: [address] [place] [address] Performed By: #### 5 7021-8 #### [facility] CLIA [id number] [address] [place] [address] [place] Creatinine and Glomerular filtration rate.predicted panel (S/P/Bld) 93 mL/min/1.73m??? Normal >=60 [facility] Comment on above: Order Comment: Speci men Type: BLOOD SPECIMEN Ordering Facility: [facility] Address: [address] [place] [address] Result Comment: Lupe mated Glomerular Filtration Rate (eGFR) is calculated using the 2020 CKD-EPI creatinine equation. This equation utilizes serum creatinine, sex, and age as parameters. The creatinine assay has traceable calibration to isotope dilution-mass spectrometry. Refer to KDIGO guidelines for clinical interpretation. In patients with unstable renal function, e.g. those with acute kidney injury, the eGFR may not accurately reflect actual GFR. Performed By: #### 5 7021-8 #### [facility] CLIA [id number] [address] [place] [address] [place] Glucose [Mass/Vol] 108 mg/dL High 74-99 [facility] Comment on above: Order Comment: David olivo Type: BLOOD SPECIMEN Ordering Facility: [facility] Address: [address] [place], [place] [address] Result Comment: The [place] Diabetes Association (ADA) provides guidance for cutoff values for fasting glucose and random glucose. The ADA defines fasting as no caloric intake for at least 8 hours. Fasting plasma glucose results between 100 to 125 [...] Standards of Medical Care in Diabetes 2016, [place] [employer] Association. Diabetes Care. 2016.39(Suppl 1). Performed By: #### 5 7021-8 #### [facility] CLIA [id number] [address] [place] [address] [place] Potassium [Moles/Vol] 3.9 mmol/L Normal 3.7-5.1 [facility] Comment on above: Order Comment: David olivo Type: BLOOD SPECIMEN Ordering Facility: [facility] Address: [address] [place] [address] Performed By: #### 5 7021-8 #### [facility] CLIA [id number] [address] [place] [address] [place] Protein [Mass/Vol] 6.8 g/dL Normal 6.3-8.0 [facility] Comment on above: Order Comment: Speci men Type: BLOOD SPECIMEN Ordering Facility: [facility] Address: [address] [place], [place] [address] Performed By: #### 5 7021-8 #### [facility] CLIA [id number] [address] [place] [address] OF [facility] Sodium [Moles/Vol] 138 mmol/L Normal 136-144 [facility] Comment on above: Order Comment: Speci men Type: BLOOD SPECIMEN Ordering Facility: [facility] Address: [address] [place] [address] Performed By: #### 5 7021-8 #### [facility] CLIA [id number] [address] [place] [address] [place] Urea nitrogen [Mass/Vol] 23 mg/dL Normal 9-24 [facility] Comment on above: Order Comment: Speci men Type: BLOOD SPECIMEN Ordering Facility: [facility] Address: [address] [place] [address] Performed By: #### 5 7021-8 #### [facility] CLIA [id number] [address] [place] [address] OF [facility] CNPNon 01-28-2024 [facility] MACI HOWARD ([id number]) 1955 M Date Time Provider Department 01/28/24 VILMA SNOW During your visit today, we recorded the following information about you: Sera Etienne OCCA 01/28/2024 2:53 PM Signed ----- Message from Vilma Snow MD sent at 01/28/2024 1:56 PM EDT ----- Platelet count remains low in the 130's. HIV and hepatitis C testing is negative. At this time, I would recommend continued monitoring and if dropping less than 100, would consider referral to hematology. Recheck at [facility] in May. Call with new bleeding or bruising symptoms. Sera Etienne OCCA 01/28/2024 2:55 PM Signed TC to patient who verbalized understanding of providers message below with no questions at this time. JAYANT Sow Allergies As of Date: 01/28/2024 Noted Allergy Reaction PARAFON DEWEY DSC (CHLORZOXAZONE) 03/11/2006 Date Reviewed: 11/19/2023 Reviewed by: Tre Flores MA - Fully Assessed Reason for Visit: Results [95] Prescriptions as of 01/28/2024 - clopidogrel (PLAVIX) 75 mg tablet Take 1 tablet by mouth once daily. - losartan (COZAAR) 25 mg tablet Take 0.5 tablets by mouth once daily. - pantoprazole DR (PROTONIX) 20 mg tablet TAKE 1 TABLET DAILY BEFORE BREAKFAST. TAKE ON AN EMPTYSTOMACH, 1/2 HOUR BEFORE A MEAL. - atorvastatin (LIPITOR) 80 mg tablet Take 1 tablet by mouth once daily. - albuterol sulfate (PROAIR HFA INHALATION) Inhale as instructed as needed. - NUCALA 100 mg/mL injection Inject 100 mg subcutaneously every 4 weeks. - fluticasone (FLONASE) 50 mcg/actuation nasal spray Use 2 Sprays in each nostril once daily. Rinse mouth after use. - montelukast (SINGULAIR) 10 mg tablet Take 1 tablet by mouth daily at bedtime. - NITROGLYCERIN SUBLINGUAL Dissolve under the tongue as needed. - CPAP - albuterol HFA (VENTOLIN HFA) 90 mcg/actuation inhaler Inhale 2 Puffs as instructed every 4 hours as needed. - aspirin 81 mg chewable tablet Take 81 mg by mouth once daily. Problem List As Of Date 01/28/2024 Noted Resolved DYSPHAGIA [787.2] Esophagitis, unspecified [K20.90] 05/01/2007 DIAPHRAGMATIC HERNIA [K44.9] 05/01/2007 FAMILY HX PROSTATIC MALIGNANCY [Z80.42] 01/19/2008 Elevated prostate specific antigen (PSA) [R97.2*01/19/2008 Other and unspecified hyperlipidemia [E78.5] 01/19/2008 12/10/2017 Prostate cancer (HCC) [C61] 05/26/2013 02/19/2023 HLD (hyperlipidemia) [E78.5] 01/17/2014 GERD (gastroesophageal reflux disease) [K21.9] 01/17/2014 Hypertensive cardiovascular disease [I11.9] 06/15/2014 Stroke (HCC) [I63.9] 08/09/2014 Chronic anticoagulation [Z79.01] 08/09/2014 09/10/2017 Sleep apnea [G47.30] 12/14/2014 06/02/2017 PFO (patent foramen ovale) [Q21.12] 02/12/2015 LESLY on CPAP [G47.33] 08/23/2015 Cerebrovascular accident (CVA) due to embolism *02/25/2016 LESLY (obstructive sleep apnea) [G47.33] 06/02/2017 History of CVA (cerebrovascular accident) [Z86.*06/20/2014 CAD (coronary artery disease) [I25.10] Cough [R05.9] 09/08/2017 12/10/2017 SOB (shortness of breath) [R06.02] 09/08/2017 Wheezing [R06.2] 09/08/2017 12/10/2017 Depression [F32.A] 12/11/2018 Severe persistent asthma, uncomplicated [J45.50]12/20/2019 Essential hypertension [I10] 08/09/2021 Asthma [J45.909] 08/09/2021 S/P prostatectomy [Z90.79] 02/19/2023 History of prostate cancer [Z85.46] 02/19/2023 Chronic bronchitis (HCC) [J42] 02/19/2023 Encounter Status:Closed by SERA ETIENNE on 01/28/24 Normal [facility] CBC W Ordered Manual Differe ntial panel (Bld)on 01-26-2024 Basophils (Bld) [#/Vol] 0.03 10*3/uL Normal <0.11 [facility] Comment on above: Order Comment: Speci men Type: BLOOD SPECIMEN Ordering Facility: [facility] Address: [address] [place] [address] [place] [address] Performed By: #### 5 7782-5 #### [facility] CLIA [id number] [address] [place] [address] [place] #### JUDY [id number] #### [facility] CLIA [id number] [address] [place] [address] [place] Basophils/100 WBC (Bld) 0.7 % Normal [facility] Comment on above: Order Comment: Speci men Type: BLOOD SPECIMEN Ordering Facility: [facility] Address: [address] [place] [address] Performed By: #### 5 7782-5 #### [facility] CLIA [id number] [address] [place] [address] [place] #### JUDY [id number] #### [facility] CLIA [id number] [address] [place] [address] [place] Differential cell count method Nom (Bld) Auto Normal [facility] Comment on above: Order Comment: Speci men Type: BLOOD SPECIMEN Ordering Facility: [facility] Address: [address] [place] [address] Performed By: #### 5 7782-5 #### [facility] CLIA [id number] [address] [place] [address] [place] #### JUDY [id number] #### [facility] CLIA [id number] [address] [place] [address] [place] Eosinophils (Bld) [#/Vol] 0.03 10*3/uL Normal <0.46 [facility] Comment on above: Order Comment: Speci men Type: BLOOD SPECIMEN Ordering Facility: [facility] Address: [address] [place] [address] Performed By: #### 5 7782-5 #### [facility] CLIA [id number] [address] [place] [address] [place] #### STALMA DELIA, [id number] #### [facility] CLIA [id number] [address] [place] [address] [place] Eosinophils/100 WBC (Bld) 0.7 % Normal [facility] Comment on above: Order Comment: Speci men Type: BLOOD SPECIMEN Ordering Facility: [facility] Address: [address] [place] [address] Performed By: #### 5 7782-5 #### [facility] CLIA [id number] [address] [place] [address] [place] #### JUDY, [id number] #### [facility] CLIA [id number] [address] [place] [address] [place] Erythrocyte distribution width (RBC) [Ratio] 13.1 % Normal 11.5-15.0 [facility] Comment on above: Order Comment: Speci men Type: BLOOD SPECIMEN Ordering Facility: [facility] Address: [address] [place] [address] Performed By: #### 5 7782-5 #### [facility] CLIA [id number] [address] [place] [address] [place] #### JUDY [id number] #### [facility] CLIA [id number] [address] [place] [address] [place] Hematocrit (Bld) [Volume fraction] 45.4 % Normal 39.0-51.0 [facility] Comment on above: Order Comment: Speci men Type: BLOOD SPECIMEN Ordering Facility: [facility] Address: [address] [place] [address] Performed By: #### 5 7782-5 #### [facility] CLIA [id number] [address] [place] [address] [place] #### JUDY [id number] #### [facility] CLIA [id number] [address] [place] [address] [place] Hemoglobin (Bld) [Mass/Vol] 15.6 g/dL Normal 13.0-17.0 [facility] Comment on above: Order Comment: Speci men Type: BLOOD SPECIMEN Ordering Facility: [facility] Address: [address] [place] [address] Performed By: #### 5 7782-5 #### [facility] CLIA [id number] [address] [place] [address] [place] #### JUDY [id number] #### [facility] CLIA [id number] [address] [place] [address] [place] Immature granulocytes (Bld) [#/Vol] 0.04 10*3/uL Normal <0.10 [facility] Comment on above: Order Comment: Speci men Type: BLOOD SPECIMEN Ordering Facility: [facility] Address: [address] [place] [address] Performed By: #### 5 7782-5 #### [facility] CLIA [id number] [address] [place] [address] [place] #### JUDY [id number] #### [facility] CLIA [id number] [address] [place] [address] [place] Immature granulocytes/100 WBC (Bld) 0.9 % Normal [facility] Comment on above: Order Comment: Speci men Type: BLOOD SPECIMEN Ordering Facility: [facility] Address: [address] [place] [address] Performed By: #### 5 7782-5 #### [facility] CLIA [id number] [address] [place] [address] [place] #### JUDY [id number] #### [facility] CLIA [id number] [address] [place] [address] [place] Lymphocytes (Bld) [#/Vol] 1.44 10*3/uL Normal 1.00-4.00 [facility] Comment on above: Order Comment: Speci men Type: BLOOD SPECIMEN Ordering Facility: [facility] Address: [address] [place] [address] Performed By: #### 5 7782-5 #### [facility] CLIA [id number] [address] [place] [address] [place] #### JUDY [id number] #### [facility] CLIA [id number] [address] [place] [address] [place] Lymphocytes/100 WBC (Bld) 33.0 % Normal [facility] Comment on above: Order Comment: Speci men Type: BLOOD SPECIMEN Ordering Facility: [facility] Address: [address] [place] [address] Performed By: #### 5 7782-5 #### [facility] CLIA [id number] [address] [place] [address] [place] #### JUDY [id number] #### [facility] CLIA [id number] [address] [place] [address] [place] MCH (RBC) [Entitic mass] 32.1 pg Normal 26.0-34.0 [facility] Comment on above: Order Comment: Speci men Type: BLOOD SPECIMEN Ordering Facility: [facility] Address: [address] [place] [address] Performed By: #### 5 7782-5 #### [facility] CLIA [id number] [address] [place] [address] [place] #### JUDY [id number] #### [facility] CLIA [id number] [address] [place] [address] [place] MCHC (RBC) [Mass/Vol] 34.4 g/dL Normal 30.5-36.0 [facility] Comment on above: Order Comment: Speci men Type: BLOOD SPECIMEN Ordering Facility: [facility] Address: [address] [place] [address] Performed By: #### 5 7782-5 #### [facility] CLIA [id number] [address] [place] [address] [place] #### STALMA DELIA, [id number] #### [facility] CLIA [id number] [address] [place] [address] [place] MCV (RBC) [Entitic vol] 93.4 fL Normal 80.0-100.0 [facility] Comment on above: Order Comment: Speci men Type: BLOOD SPECIMEN Ordering Facility: [facility] Address: [address] [place] [address] Performed By: #### 5 7782-5 #### [facility] CLIA [id number] [address] [place] [address] [place] #### STALMA DELIA, [id number] #### [facility] CLIA [id number] [address] [place] [address] [place] Monocytes (Bld) [#/Vol] 0.52 10*3/uL Normal <0.87 [facility] Comment on above: Order Comment: Speci men Type: BLOOD SPECIMEN Ordering Facility: [facility] Address: [address] [place] [id number] Performed By: #### 5 7782-5 #### [facility] CLIA [id number] [address] [place] [address] [place] #### STALMA DELIA, [id number] #### [facility] CLIA [id number] [address] [place] [address] [place] Monocytes/100 WBC (Bld) 11.9 % Normal [facility] Comment on above: Order Comment: Speci men Type: BLOOD SPECIMEN Ordering Facility: [facility] Address: [address] [place] [address] Performed By: #### 5 7782-5 #### [facility] CLIA [id number] [address] [place] [address] [place] #### STFRABHAY, [id number] #### [facility] CLIA [id number] [address] [place] [address] [place] Neutrophils (Bld) [#/Vol] 2.31 10*3/uL Normal 1.45-7.50 [facility] Comment on above: Order Comment: Speci men Type: BLOOD SPECIMEN Ordering Facility: [facility] Address: [address] [place] [address] Performed By: #### 5 7782-5 #### [facility] CLIA [id number] [address] [place] [address] [place] #### STALMA DELIA, [id number] #### [facility] CLIA [id number] [address] [place] [address] [place] Neutrophils/100 WBC (Bld) 52.8 % Normal [facility] Comment on above: Order Comment: Speci men Type: BLOOD SPECIMEN Ordering Facility: [facility] Address: [address] [place] [address] Performed By: #### 5 7782-5 #### [facility] CLIA [id number] [address] [place] [address] [place] #### STFRABHAY, [id number] #### [facility] CLIA [id number] [address] [place] [address] [place] Nucleated RBC (Bld) [#/Vol] 10*3/uL Normal <0.01 [facility] Comment on above: Order Comment: Speci men Type: BLOOD SPECIMEN Ordering Facility: [facility] Address: [address] [place] [address] Performed By: #### 5 7782-5 #### [facility] CLIA [id number] [address] [place] [address] [place] #### JUDY [id number] #### [facility] CLIA [id number] [address] [place] [address] [place] Nucleated RBC/100 WBC (Bld) [Ratio] 0.0 /100 WBC Normal [facility] Comment on above: Order Comment: Speci men Type: BLOOD SPECIMEN Ordering Facility: [facility] Address: [address] [place] [address] Performed By: #### 5 7782-5 #### [facility] CLIA [id number] [address] [place] [address] [place] #### JUDY [id number] #### [facility] CLIA [id number] [address] [place] [address] [place] Platelet mean volume (Bld) [Entitic vol] 8.9 fL Low 9.0-12.7 [facility] Comment on above: Order Comment: Speci men Type: BLOOD SPECIMEN Ordering Facility: [facility] Address: [address] [place] [address] Performed By: #### 5 7782-5 #### [facility] CLIA [id number] [address] [place] [address] [place] #### STALMA DELIA, [id number] #### [facility] CLIA [id number] [address] [place] [address] [place] Platelets (Bld) [#/Vol] 131 10*3/uL Low 150-400 [facility] Comment on above: Order Comment: Speci men Type: BLOOD SPECIMEN Ordering Facility: [facility] Address: [address] [place] [address] Result Comment: No c lot detected. Performed By: #### 5 7782-5 #### [facility] CLIA [id number] [address] [place] [address] [place] #### JUDY [id number] #### [facility] CLIA [id number] [address] [place] [address] [place] RBC (Bld) [#/Vol] 4.86 10*6/uL Normal 4.20-6.00 [facility] Comment on above: Order Comment: Speci men Type: BLOOD SPECIMEN [facility]ing Facility: [facility] Address: [address] [place] [address] Performed By: #### 5 7782-5 #### [facility] CLIA [id number] [address] [place] [address] [place] #### JUDY [id number] #### [facility] CLIA [id number] [address] [place] [address] [place] WBC (Bld) [#/Vol] 4.37 10*3/uL Normal 3.70-11.00 [facility] Comment on above: Order Comment: Speci men Type: BLOOD SPECIMEN Ordering Facility: [facility] Address: [address] [place] [address] Performed By: #### 5 7782-5 #### [facility] CLIA [id number] [address] [place] [address] [place] #### JUDY, [id number] #### [facility] CLIA [id number] [address] [place] [address] [place] HCV Ab Ser Qlon 01-26-2024 HCV Ab Ql (S) Negative Normal Negative [facility] Comment on above: Order Comment: Speci men Type: BLOOD SPECIMEN Ordering Facility: [facility] Address: [address] [place] [address] Result Comment: The result suggests no evidence of active infection with Hepatitis C virus. Should recent infection be suspected, repeat testing may be considered 4-6 weeks after this draw. Performed By: #### 5 7021-8 #### [facility] CLIA [id number] [address] [place] [address] [place] HIV 1+2 Ab IA Qlon HIV 1 and 2 Ab IA.rapid Nom (S/P/Bld) Normal [facility] Comment on above: Order Comment: Speci men Type: BLOOD SPECIMEN Ordering Facility: [facility] Address: [address] [place] [address] Result Comment: Test not indicated. Performed By: #### 3 1201-7 #### [facility] CLIA [id number] [address] [place] [address] [place] HIV 1+2 Ab+HIV1 p24 Ag IA Ql Non-Reactive Normal Nonreactive [facility] Comment on above: Order Comment: Speci men Type: BLOOD SPECIMEN Ordering Facility: [facility] Address: [address] [place] [address] Performed By: #### 3 1201-7 #### [facility] CLIA [id number] [address] [place] [address] [place] HIV immunoassay testing algorithm interpretation (S/P/Bld) [Interp] Normal [facility] Comment on above: Order Comment: Speci men Type: BLOOD SPECIMEN Ordering Facility: [facility] Address: [address] [place] [address] Result Comment: No e vidence of HIV-1 or HIV-2 infection. Should recent infection be suspected, repeat testing may be considered 2-3 weeks after this draw. [place] Rev. Code 3701.243(E): This information has been disclosed to you from confidential records protected from disclosure by state law. ???You shall make no further disclosure of this information without the specific, written, and informed release of the individual to whom it pertains or as otherwise permitted by state law. A general authorization for the release of medical or other information is not sufficient for the purpose of the release of HIV test results or diagnoses. Performed By: #### 3 1201-7 #### [facility] CLIA [id number] [address] [place] [address] [place] PATHOLOGIST INTERPRETATION C BC/DIFFon 01-26-2024 [employer] review Samm (Unsp spec) [Interp] Reviewed by Yelitza Castro MD Normal [facility] Comment on above: Order Comment: Speci men Type: BLOOD SPECIMEN Ordering Facility: [facility] Address: [address] [place] [address] Performed By: #### 5 7782-5 #### [facility] CLIA [id number] [address] [place] [address] [place] #### STALMA DELIA, [id number] #### [facility] CLIA [id number] [address] [place] [address] [place] STAFF REVIEW, CBCDIF Normal [facility] Comment on above: Order Comment: Speci men Type: BLOOD SPECIMEN Ordering Facility: [facility] Address: [address] [place] [address] Result Comment: Thro mbocytopenia Performed By: #### 5 7782-5 #### [facility] CLIA [id number] [address] [place] [address] [place] #### STFREV, [id number] #### [facility] CLIA [id number] [address] [place] [address] [place] RBC MORPHOLOGYon 01-26-2024 Ovalocytes LM Ql (Bld) Few Normal [facility] Comment on above: Order Comment: Speci men Type: BLOOD SPECIMEN Ordering Facility: [facility] Address: [address] [place] [address] Performed By: #### 5 7782-5 #### [facility] CLIA [id number] [address] [place] [address] [place] #### JUDY [id number] #### [facility] CLIA [id number] [address] [place] [address] [place] Platelets Estimate (Bld) [#/Vol] Decreased Normal [facility] Comment on above: Order Comment: Speci men Type: BLOOD SPECIMEN Ordering Facility: [facility] Address: [address] [place] [address] Performed By: #### 5 7782-5 #### [facility] CLIA [id number] [address] [place] [address] [place] #### JUDY [id number] #### [facility] CLIA [id number] [address] [place] [address] [place] RBC morphology finding Nom (Bld) Reviewed: see results of individual morphologies Normal [facility] Comment on above: Order Comment: Speci men Type: BLOOD SPECIMEN Ordering Facility: [facility] Address: [address] [place] [address] Performed By: #### 5 7782-5 #### [facility] CLIA [id number] [address] [place] [address] [place] #### JUDY, [id number] #### [facility] CLIA [id number] [address] [place] [address] [place] Jason 12-24-2023 ANALYN Telephone (FAMPWS) MACI HOWARD ([id number]) 1955 M Date Time Provider Department 12/24/23 VILMA SNOW During your visit today, we recorded the following information about you: Vilma Snow MD 12/24/2023 11:58 AM Signed Repeat alk phos is back in the normal range <140. LFTs and GGT normal. No further workup required at this time. Platelet count remains slightly low. His level is not low enough to cause spontaneous bleeding. I would complete workup with peripheral smear, HIV and hepatitis C screening in 1-2 months. If testing is stable or normal, no further workup needed. Tre Flores MA 12/24/2023 1:09 PM Signed LM for patient to contact office. LUAN Hendrickson Beth, LPN 12/24/2023 3:35 PM Signed Patient returned call and went over results, notes from Dr Snow with understanding. Aware lab orders in computer. Allergies As of Date: 12/24/2023 Noted Allergy Reaction PARAFON FORTE DSC (CHLORZOXAZONE) 03/11/2006 Date Reviewed: 11/19/2023 Reviewed by: Tre Flores MA - Fully Assessed Reason for Visit: Results [95] Primary Visit Diagnosis:Thrombocytopenia (HCC) [D69.6] Order(s):PATHOLOGIST INTERPRETATION WITH CBC AND DIFF [SQSTREV] Order #: [id number] FUTURE HIV 1/2 COMBO WITH REFLEX TO DIFFERENTIATION [SQHIV12] Order #: [id number] FUTURE HEPATITIS C ANTIBODY IA WITH CONFIRMATION [LNAKPN0A] Order #: [id number] FUTURE Prescriptions as of 12/24/2023 - clopidogrel (PLAVIX) 75 mg tablet Take 1 tablet by mouth once daily. - losartan (COZAAR) 25 mg tablet Take 0.5 tablets by mouth once daily. - pantoprazole DR (PROTONIX) 20 mg tablet TAKE 1 TABLET DAILY BEFORE BREAKFAST. TAKE ON AN EMPTYSTOMACH, 1/2 HOUR BEFORE A MEAL. - atorvastatin (LIPITOR) 80 mg tablet Take 1 tablet by mouth once daily. - albuterol sulfate (PROAIR HFA INHALATION) Inhale as instructed as needed. - NUCALA 100 mg/mL injection Inject 100 mg subcutaneously every 4 weeks. - fluticasone (FLONASE) 50 mcg/actuation nasal spray Use 2 Sprays in each nostril once daily. Rinse mouth after use. - montelukast (SINGULAIR) 10 mg tablet Take 1 tablet by mouth daily at bedtime. - NITROGLYCERIN SUBLINGUAL Dissolve under the tongue as needed. - CPAP - albuterol HFA (VENTOLIN HFA) 90 mcg/actuation inhaler Inhale 2 Puffs as instructed every 4 hours as needed. - aspirin 81 mg chewable tablet Take 81 mg by mouth once daily. Problem List As Of Date 12/24/2023 Noted Resolved DYSPHAGIA [787.2] Esophagitis, unspecified [K20.90] 05/01/2007 DIAPHRAGMATIC HERNIA [K44.9] 05/01/2007 FAMILY HX PROSTATIC MALIGNANCY [Z80.42] 01/19/2008 Elevated prostate specific antigen (PSA) [R97.2*01/19/2008 Other and unspecified hyperlipidemia [E78.5] 01/19/2008 12/10/2017 Prostate cancer (HCC) [C61] 05/26/2013 02/19/2023 HLD (hyperlipidemia) [E78.5] 01/17/2014 GERD (gastroesophageal reflux disease) [K21.9] 01/17/2014 Hypertensive cardiovascular disease [I11.9] 06/15/2014 Stroke (HCC) [I63.9] 08/09/2014 Chronic anticoagulation [Z79.01] 08/09/2014 09/10/2017 Sleep apnea [G47.30] 12/14/2014 06/02/2017 PFO (patent foramen ovale) [Q21.12] 02/12/2015 LESLY on CPAP [G47.33] 08/23/2015 Cerebrovascular accident (CVA) due to embolism *02/25/2016 LESLY (obstructive sleep apnea) [G47.33] 06/02/2017 History of CVA (cerebrovascular accident) [Z86.*06/20/2014 CAD (coronary artery disease) [I25.10] Cough [R05.9] 09/08/2017 12/10/2017 SOB (shortness of breath) [R06.02] 09/08/2017 Wheezing [R06.2] 09/08/2017 12/10/2017 Depression [F32.A] 12/11/2018 Severe persistent asthma, uncomplicated [J45.50]12/20/2019 Essential hypertension [I10] 08/09/2021 Asthma [J45.909] 08/09/2021 S/P prostatectomy [Z90.79] 02/19/2023 History of prostate cancer [Z85.46] 02/19/2023 Chronic bronchitis (HCC) [J42] 02/19/2023 Encounter Status:Closed by GENNY VERGARA on 12/24/23 Normal [facility] ALKALINE PHOSPHATASE ISOENZY MES (P)on 12-20-2023 ALK PHOS BONE % 28.9 % Normal 10.7-68.3 [facility] Comment on above: Order Comment: Speci men Type: BLOOD SPECIMEN Ordering Facility: [facility] Address: [address] [place] [address] Performed By: #### 5 7021-8 #### [id number] [address] [place] [address] [place] ALK PHOS LIVER % 71.1 % Normal 26.0-86.2 [facility] Comment on above: Order Comment: Speci men Type: BLOOD SPECIMEN Ordering Facility: [facility] Address: [address] [place] [address] Performed By: #### 5 7021-8 #### [facility] CLIA [id number] [address] [place] [address] [place] BONE FRACTION 37.6 U/L Normal 12.9-52.6 [facility] Comment on above: Order Comment: Speci men Type: BLOOD SPECIMEN Ordering Facility: [facility] Address: [address] [place] [address] Performed By: #### 5 7021-8 #### [facility] CLIA [id number] [address] [place] [address] [place] INTESTINE FRACTION 0.0 U/L Normal 0.0-16.3 [facility] Comment on above: Order Comment: Speci men Type: BLOOD SPECIMEN Ordering Facility: [facility] Address: [address] [place] [address] Performed By: #### 5 7021-8 #### [facility] CLIA [id number] [address] [place] [address] [place] LIVER FRACTION 92.4 U/L High 16.0-69.3 [facility] Comment on above: Order Comment: Speci men Type: BLOOD SPECIMEN Ordering Facility: [facility] Address: [address] [place] [address] Performed By: #### 5 7021-8 #### [facility] [id number] [address] [place] [address] [place] Neutrophils/100 WBC (Bld) 0.0 % Normal 0.0-24.2 [facility] Comment on above: Order Comment: Speci men Type: BLOOD SPECIMEN Ordering Facility: [facility] Address: [address] [place] [address] Performed By: #### 5 7021-8 #### [facility] [id number] [address] [place] [address] [place] ALP SerPl-cCncon 12-20-2023 ALP [Catalytic activity/Vol] 130 U/L High 38-113 [facility] Comment on above: Order Comment: Speci men Type: BLOOD SPECIMEN Ordering Facility: [facility] Address: [address] [place] [address] Performed By: #### 5 7782-5 #### [facility] [id number] [address] [place] [address] [place] #### JUDY, [id number] #### [facility] CLIA [id number] [address] [place] [address] [place] [address] [place] CBC W Auto Differential pane l (Bld)on 12-20-2023 Basophils (Bld) [#/Vol] 0.04 10*3/uL Normal <0.11 [facility] Comment on above: Order Comment: Speci men Type: BLOOD SPECIMEN Ordering Facility: [facility] Address: [address] [place] [address] Performed By: #### 5 7021-8 #### [facility] CLIA [id number] [address] [place] [address] [place] Basophils/100 WBC (Bld) 0.8 % Normal [facility] Comment on above: Order Comment: Speci men Type: BLOOD SPECIMEN Ordering Facility: [facility] Address: [address] [place] [address] Performed By: #### 5 7021-8 #### [facility] CLIA [id number] [address] [place] [address] [place] Differential cell count method Nom (Bld) Auto Normal [facility] Comment on above: Order Comment: Speci men Type: BLOOD SPECIMEN Ordering Facility: [facility] Address: [address] [place] [address] Performed By: #### 5 7021-8 #### [facility] CLIA [id number] [address] [place] [address] [place] Eosinophils (Bld) [#/Vol] 0.04 10*3/uL Normal <0.46 [facility] Comment on above: Order Comment: Speci men Type: BLOOD SPECIMEN Ordering Facility: [facility] Address: [address] [place] [address] Performed By: #### 5 7021-8 #### [facility] CLIA [id number] [address] [place] [address] [place] Eosinophils/100 WBC (Bld) 0.8 % Normal [facility] Comment on above: Order Comment: Speci men Type: BLOOD SPECIMEN Ordering Facility: [facility] Address: [address] [id number] Performed By: #### 5 7021-8 #### [facility] CLIA [id number] [address] [place] [address] [place] Erythrocyte distribution width (RBC) [Ratio] 13.2 % Normal 11.5-15.0 [facility] Comment on above: Order Comment: Speci men Type: BLOOD SPECIMEN Ordering Facility: [facility] Address: [address] [place] [address] Performed By: #### 5 7021-8 #### [facility] CLIA [id number] [address] [place] [address] [place] Hematocrit (Bld) [Volume fraction] 47.2 % Normal 39.0-51.0 [facility] Comment on above: Order Comment: Speci men Type: BLOOD SPECIMEN Ordering Facility: [facility] Address: [address] [place] [address] Performed By: #### 5 7021-8 #### [facility] CLIA [id number] [address] [place] [address] [place] Hemoglobin (Bld) [Mass/Vol] 16.1 g/dL Normal 13.0-17.0 [facility] Comment on above: Order Comment: Speci men Type: BLOOD SPECIMEN Ordering Facility: [facility] Address: [address] [place] [address] Performed By: #### 5 7021-8 #### [facility] CLIA [id number] [address] [place] [address] [place] Immature granulocytes (Bld) [#/Vol] 0.03 10*3/uL Normal <0.10 [facility] Comment on above: Order Comment: Speci men Type: BLOOD SPECIMEN Ordering Facility: [facility] Address: [address] [place] [address] Performed By: #### 5 7021-8 #### [facility] CLIA [id number] [address] [place] [address] [place] Immature granulocytes/100 WBC (Bld) 0.6 % Normal [facility] Comment on above: Order Comment: Speci men Type: BLOOD SPECIMEN Ordering Facility: [facility] Address: [address] [place] [address] Performed By: #### 5 7021-8 #### [facility] CLIA [id number] [address] [place] [address] [place] Lymphocytes (Bld) [#/Vol] 1.86 10*3/uL Normal 1.00-4.00 [facility] Comment on above: Order Comment: Speci men Type: BLOOD SPECIMEN Ordering Facility: [facility] Address: [address] [place] [address] Performed By: #### 5 7021-8 #### [facility] CLIA [id number] [address] [place] [address] [place] Lymphocytes/100 WBC (Bld) 35.2 % Normal [facility] Comment on above: Order Comment: Speci men Type: BLOOD SPECIMEN Ordering Facility: [facility] Address: [address] [place] [address] Performed By: #### 5 7021-8 #### [facility] CLIA [id number] [address] [place] [address] [place] MCH (RBC) [Entitic mass] 32.5 pg Normal 26.0-34.0 [facility] Comment on above: Order Comment: Speci men Type: BLOOD SPECIMEN Ordering Facility: [facility] Address: [address] [place] [address] Performed By: #### 5 7021-8 #### [facility] CLIA [id number] [address] [place] [address] [place] MCHC (RBC) [Mass/Vol] 34.1 g/dL Normal 30.5-36.0 [facility] Comment on above: Order Comment: Speci men Type: BLOOD SPECIMEN Ordering Facility: [facility] Address: [address] [place] [address] Performed By: #### 5 7021-8 #### [facility] CLIA [id number] [address] [place] [address] [place] MCV (RBC) [Entitic vol] 95.2 fL Normal 80.0-100.0 [facility] Comment on above: Order Comment: Speci men Type: BLOOD SPECIMEN Ordering Facility: [facility] Address: [address] [place] [address] Performed By: #### 5 7021-8 #### [facility] CLIA [id number] [address] [place] [address] [place] Monocytes (Bld) [#/Vol] 0.63 10*3/uL Normal <0.87 [facility] Comment on above: Order Comment: Speci men Type: BLOOD SPECIMEN Ordering Facility: [facility] Address: [address] [place] [address] Performed By: #### 5 7021-8 #### [facility] CLIA [id number] [address] [place] [address] [place] Monocytes/100 WBC (Bld) 11.9 % Normal [facility] Comment on above: Order Comment: Speci men Type: BLOOD SPECIMEN Ordering Facility: [facility] Address: [address] [place] [address] Performed By: #### 5 7021-8 #### [facility] CLIA [id number] [address] [place] [address] [place] Neutrophils (Bld) [#/Vol] 2.69 10*3/uL Normal 1.45-7.50 [facility] Comment on above: Order Comment: Speci men Type: BLOOD SPECIMEN Ordering Facility: [facility] Address: [address] [place] [address] Performed By: #### 5 7021-8 #### [facility] CLIA [id number] [address] [place] [address] [place] Neutrophils/100 WBC (Bld) 50.7 % Normal [facility] Comment on above: Order Comment: Speci men Type: BLOOD SPECIMEN Ordering Facility: [facility] Address: [address] [place] [address] Performed By: #### 5 7021-8 #### [facility] CLIA [id number] [address] [place] [address] [place] Nucleated RBC (Bld) [#/Vol] 10*3/uL Normal <0.01 [facility] Comment on above: Order Comment: Speci men Type: BLOOD SPECIMEN Ordering Facility: [facility] Address: [address] [place] [address] Performed By: #### 5 7021-8 #### [facility] CLIA [id number] [address] [place] [address] [place] Nucleated RBC/100 WBC (Bld) [Ratio] 0.0 /100 WBC Normal [facility] Comment on above: Order Comment: Speci men Type: BLOOD SPECIMEN Ordering Facility: [facility] Address: [address] [place] [address] Performed By: #### 5 7021-8 #### [facility] CLIA [id number] [address] [place] [address] [place] Platelet mean volume (Bld) [Entitic vol] 9.6 fL Normal 9.0-12.7 [facility] Comment on above: Order Comment: Speci men Type: BLOOD SPECIMEN Ordering Facility: [facility] Address: [address] [place] [address] Performed By: #### 5 7021-8 #### [facility] CLIA [id number] [address] [place] [address] [place] Platelets (Bld) [#/Vol] 133 10*3/uL Low 150-400 [facility] Comment on above: Order Comment: Speci men Type: BLOOD SPECIMEN Ordering Facility: [facility] Address: [address] [place] [address] Performed By: #### 5 7021-8 #### [facility] CLIA [id number] [address] [place] [address] [place] RBC (Bld) [#/Vol] 4.96 10*6/uL Normal 4.20-6.00 [facility] Comment on above: Order Comment: Speci men Type: BLOOD SPECIMEN Ordering Facility: [facility] Address: [address] [place] [address] Performed By: #### 5 7021-8 #### [facility] CLIA [id number] [address] [place] [address] [place] WBC (Bld) [#/Vol] 5.29 10*3/uL Normal 3.70-11.00 [facility] Comment on above: Order Comment: Speci men Type: BLOOD SPECIMEN Ordering Facility: [facility] Address: [address] [place] [address] Performed By: #### 5 7021-8 #### [facility] CLIA [id number] [address] [place] [address] [place] Comprehensive metabolic 2000 panelon 12-20-2023 Albumin [Mass/Vol] 3.9 g/dL Normal 3.9-4.9 [facility] Comment on above: Order Comment: Speci men Type: BLOOD SPECIMEN Ordering Facility: [facility] Address: [address] [place] [address] Performed By: #### 5 7782-5 #### [facility] CLIA [id number] [address] [place] [address] [place] #### JUDY, [id number] #### [facility] CLIA [id number] [address] [place] [address] [place] ALT [Catalytic activity/Vol] 21 U/L Normal 10-54 [facility] Comment on above: Order Comment: Speci men Type: BLOOD SPECIMEN Ordering Facility: [facility] Address: [address] [id number] Performed By: #### 5 7782-5 #### [facility] CLIA [id number] [address] [place] [address] [place] #### STALMA DELIA [id number] #### [facility] CLIA [id number] [address] [place] [address] [place] Anion gap [Moles/Vol] 12 mmol/L Normal 9-18 [facility] Comment on above: Order Comment: Speci men Type: BLOOD SPECIMEN Ordering Facility: [facility] Address: [facility] [place] [address] Performed By: #### 5 7782-5 #### [facility] CLIA [id number] [address] [place] [address] [place] #### JUDY [id number] #### [facility] CLIA [id number] [address] [place] [address] [place] AST [Catalytic activity/Vol] 20 U/L Normal 14-40 [facility] Comment on above: Order Comment: Speci men Type: BLOOD SPECIMEN Ordering Facility: [facility] Address: [address] [id number] Performed By: #### 5 7782-5 #### [facility] CLIA [id number] [address] [place] [address] [place] #### STALMA DELIA, [id number] #### [facility] CLIA [id number] [address] [place] [address] [place] Bilirubin [Mass/Vol] 0.7 mg/dL Normal 0.2-1.3 [facility] Comment on above: Order Comment: Speci men Type: BLOOD SPECIMEN Ordering Facility: [facility] Address: [address] [place] [address] Performed By: #### 5 7782-5 #### [facility] CLIA [id number] [address] [place] [address] [place] #### JUDY [id number] #### [facility] CLIA [id number] [address] [place] [address] [place] Calcium [Mass/Vol] 9.0 mg/dL Normal 8.5-10.2 [facility] Comment on above: Order Comment: Speci men Type: BLOOD SPECIMEN Ordering Facility: [facility] Address: [address] [place] [address] Performed By: #### 5 7782-5 #### [facility] CLIA [id number] [address] [place] [address] [place] #### JUDY [id number] #### [facility] CLIA [id number] [address] [place] [address] [place] Chloride [Moles/Vol] 106 mmol/L High 97-105 [facility] Comment on above: Order Comment: Speci men Type: BLOOD SPECIMEN Ordering Facility: [facility] Address: [address] [place] [address] Performed By: #### 5 7782-5 #### [facility] CLIA [id number] [address] [place] [address] [place] #### JUDY [id number] #### [facility] CLIA [id number] [address] [place] [address] [place] CO2 [Moles/Vol] 21 mmol/L Low 22-30 [facility] Comment on above: Order Comment: Speci men Type: BLOOD SPECIMEN Ordering Facility: [facility] Address: [address] [place] [address] Performed By: #### [id number] #### [facility] CLIA [id number] [address] [place] [address] [place] #### STFRABHAY, [id number] #### [facility] CLIA [id number] [address] [place] [address] [place] Creatinine [Mass/Vol] 0.96 mg/dL Normal 0.73-1.22 [facility] Comment on above: Order Comment: David men Type: BLOOD SPECIMEN Ordering Facility: [facility] Address: [address] [place] [address] Performed By: #### 5 7782-5 #### [facility] CLIA [id number] [address] [place] [address] [place] #### STFRABHAY, [id number] #### [facility] CLIA [id number] [address] [place] [address] [place] [facility] Creatinine and Glomerular filtration rate.predicted panel (S/P/Bld) 86 mL/min/1.73m??? Normal >=60 [facility] Comment on above: Order Comment: David olivo Type: BLOOD SPECIMEN Ordering Facility: [facility] Address: [address] [place] [address] Result Comment: Lupe mated Glomerular Filtration Rate (eGFR) is calculated using the 2020 CKD-EPI creatinine equation. This equation utilizes serum creatinine, sex, and age as parameters. The creatinine assay has traceable calibration to isotope dilution-mass spectrometry. Refer to KDIGO guidelines for clinical interpretation. In patients with unstable renal function, e.g. those with acute kidney injury, the eGFR may not accurately reflect actual GFR. Performed By: #### 5 7782-5 #### [facility] CLIA [id number] [address] [place] [address] [place] #### STALMA DELIA, [id number] #### [facility] CLIA [id number] [address] [place] [address] [place] Glucose [Mass/Vol] 87 mg/dL Normal 74-99 [facility] Comment on above: Order Comment: David olivo Type: BLOOD SPECIMEN Ordering Facility: [facility] Address: [address] [place] [address] Result Comment: The [place] Diabetes Association (ADA) provides guidance for cutoff values for fasting glucose and random glucose. The ADA defines fasting as no caloric intake for at least 8 hours. Fasting plasma glucose results between 100 to 125 [...] Standards of Medical Care in Diabetes 2016, [place] [employer]. Diabetes Care. 2016.39(Suppl 1). Performed By: #### 5 7782-5 #### [facility] CLIA [id number] [address] [place] [address] [place] #### JUDY [id number] #### [facility] CLIA [id number] [address] [place] [address] [place] Potassium [Moles/Vol] 4.1 mmol/L Normal 3.7-5.1 [facility] Comment on above: Order Comment: David olivo Type: BLOOD SPECIMEN Ordering Facility: [facility] Address: [address] [place], [place] [address] Performed By: #### 5 7782-5 #### [facility] CLIA [id number] [address] [place] [address] [place] #### STALMA DELIA, [id number] #### [facility] CLIA [id number] [address] [place] [address] [place] Protein [Mass/Vol] 6.6 g/dL Normal 6.3-8.0 [facility] Comment on above: Order Comment: Speci men Type: BLOOD SPECIMEN Ordering Facility: [facility] Address: [address] [place] [address] Performed By: #### 5 7782-5 #### [facility] CLIA [id number] [address] [place] [address] [place] #### STFRABHAY, [id number] #### [facility] CLIA [id number] [address] [place] [address] [place] Sodium [Moles/Vol] 139 mmol/L Normal 136-144 [facility] Comment on above: Order Comment: Speci men Type: BLOOD SPECIMEN Ordering Facility: [facility] Address: [address] [place] [address] Performed By: #### 5 7782-5 #### [facility] CLIA [id number] [address] [place] [address] [place] #### STALAM DELIA [id number] #### [facility] CLIA [id number] [address] [place] [address] [place] Urea nitrogen [Mass/Vol] 24 mg/dL Normal 9-24 [facility] Comment on above: Order Comment: Speci men Type: BLOOD SPECIMEN Ordering Facility: [facility] Address: [address] [place], [place] [address] Performed By: #### 5 7782-5 #### [facility] CLIA [id number] [address] [place] [address] [place] #### STALMA DELIA, [id number] #### [facility] CLIA [id number] [address] [place] [address] [place] GGT SerPl-cCncon 12-20-2023 Gamma glutamyl transferase [Catalytic activity/Vol] 29 U/L Normal 10-70 [facility] Comment on above: Order Comment: Speci men Type: BLOOD SPECIMEN Ordering Facility: [facility] Address: [address] [place] [address] Performed By: #### 5 7782-5 #### [facility] CLIA [id number] [address] [place] [address] [place] #### STFREV, [id number] #### [facility] CLIA [id number] [address] [place], [place] [address] [address] [place] Hemoccult Stl Ql IAon 2023 Lower GI hemoglobin IA Ql (Stl) Negative Normal Negative [facility] Comment on above: Order Comment: Speci men Type: BLOOD SPECIMEN Ordering Facility: [facility] Address: [address] [place] [address] Performed By: #### 5 7021-8 #### [facility] CLIA [id number] [address] [place] [address] OF [facility] CNPJaja 11-20-2023 CNPN Telephone [facility] MACI HOWARD ([id number]) 1955 M Date Time Provider Department 11/20/23 VILMA SNOW During your visit today, we recorded the following information about you: Vilma Snow MD 11/20/2023 9:07 AM Signed Normal labs aside from slightly high alk phos with normal LFTs and slightly low platelet count. Recommend rechecking in 1 month to monitor. Clara Vitale LPN 11/20/2023 11:42 AM Signed Phoned patient and reviewed results and recommendations with him. Patient voiced understanding. Allergies As of Date: 11/20/2023 Noted Allergy Reaction LOURDES PALOMO DSC (CHLORZOXAZONE) 03/11/2006 Date Reviewed: 11/19/2023 Reviewed by: Tre Flores MA - Fully Assessed Reason for Visit: Results [95] Primary Visit Diagnosis:Elevated alkaline phosphatase level [R74.8] Other Visit Diagnosis:Thrombocytopenia (HCC) [D69.6] Order(s):COMP METABOLIC PANEL [SQCMP] Order #: [id number] FUTURE CBC + DIFF [SQCBCDIF] Order #: [id number] FUTURE ALK PHOS ISOENZYM BL [SQALKISO] Order #: [id number] FUTURE GGT BLD [SQGGT] Order #: [id number] FUTURE Prescriptions as of 11/20/2023 - clopidogrel (PLAVIX) 75 mg tablet Take 1 tablet by mouth once daily. - losartan (COZAAR) 25 mg tablet Take 0.5 tablets by mouth once daily. - pantoprazole DR (PROTONIX) 20 mg tablet TAKE 1 TABLET DAILY BEFORE BREAKFAST. TAKE ON AN EMPTYSTOMACH, 1/2 HOUR BEFORE A MEAL. - atorvastatin (LIPITOR) 80 mg tablet Take 1 tablet by mouth once daily. - albuterol sulfate (PROAIR HFA INHALATION) Inhale as instructed as needed. - NUCALA 100 mg/mL injection Inject 100 mg subcutaneously every 4 weeks. - fluticasone (FLONASE) 50 mcg/actuation nasal spray Use 2 Sprays in each nostril once daily. Rinse mouth after use. - montelukast (SINGULAIR) 10 mg tablet Take 1 tablet by mouth daily at bedtime. - NITROGLYCERIN SUBLINGUAL Dissolve under the tongue as needed. - CPAP - albuterol HFA (VENTOLIN HFA) 90 mcg/actuation inhaler Inhale 2 Puffs as instructed every 4 hours as needed. - aspirin 81 mg chewable tablet Take 81 mg by mouth once daily. Problem List As Of Date 11/20/2023 Noted Resolved DYSPHAGIA [787.2] Esophagitis, unspecified [K20.90] 05/01/2007 DIAPHRAGMATIC HERNIA [K44.9] 05/01/2007 FAMILY HX PROSTATIC MALIGNANCY [Z80.42] 01/19/2008 Elevated prostate specific antigen (PSA) [R97.2*01/19/2008 Other and unspecified hyperlipidemia [E78.5] 01/19/2008 12/10/2017 Prostate cancer (HCC) [C61] 05/26/2013 02/19/2023 HLD (hyperlipidemia) [E78.5] 01/17/2014 GERD (gastroesophageal reflux disease) [K21.9] 01/17/2014 Hypertensive cardiovascular disease [I11.9] 06/15/2014 Stroke (HCC) [I63.9] 08/09/2014 Chronic anticoagulation [Z79.01] 08/09/2014 09/10/2017 Sleep apnea [G47.30] 12/14/2014 06/02/2017 PFO (patent foramen ovale) [Q21.12] 02/12/2015 LESLY on CPAP [G47.33] 08/23/2015 Cerebrovascular accident (CVA) due to embolism *02/25/2016 LESLY (obstructive sleep apnea) [G47.33] 06/02/2017 History of CVA (cerebrovascular accident) [Z86.*06/20/2014 CAD (coronary artery disease) [I25.10] Cough [R05.9] 09/08/2017 12/10/2017 SOB (shortness of breath) [R06.02] 09/08/2017 Wheezing [R06.2] 09/08/2017 12/10/2017 Depression [F32.A] 12/11/2018 Severe persistent asthma, uncomplicated [J45.50]12/20/2019 Essential hypertension [I10] 08/09/2021 Asthma [J45.909] 08/09/2021 S/P prostatectomy [Z90.79] 02/19/2023 History of prostate cancer [Z85.46] 02/19/2023 Chronic bronchitis (HCC) [J42] 02/19/2023 Encounter Status:Closed by CLARA VITALE on 11/20/23 Normal [facility] CBC W Auto Differential pane l (Bld)on 11-19-2023 Basophils (Bld) [#/Vol] 0.04 10*3/uL <0.11 k/uL [facility] Basophils/100 WBC (Bld) 0.7 % [facility] Differential cell count method Nom (Bld) Auto [facility] Eosinophils (Bld) [#/Vol] 0.04 10*3/uL <0.46 k/uL [facility] Eosinophils/100 WBC (Bld) 0.7 % [facility] Erythrocyte distribution width (RBC) [Ratio] 13.2 % 11.5 - 15.0 % [facility] Hematocrit (Bld) [Volume fraction] 49.2 % 39.0 - 51.0 % [facility] Hemoglobin (Bld) [Mass/Vol] 16.8 g/dL 13.0 - 17.0 g/dL [facility] Immature granulocytes (Bld) [#/Vol] 0.05 10*3/uL <0.10 k/uL [facility] Immature granulocytes/100 WBC (Bld) 0.8 % [facility] Lymphocytes (Bld) [#/Vol] 1.74 10*3/uL 1.00 - 4.00 k/uL [facility] Lymphocytes/100 WBC (Bld) 28.6 % [facility] MCH (RBC) [Entitic mass] 32.2 pg 26.0 - 34.0 pg [facility] MCHC (RBC) [Mass/Vol] 34.1 g/dL 30.5 - 36.0 g/dL [facility] MCV (RBC) [Entitic vol] 94.3 fL 80.0 - 100.0 fL [facility] Monocytes (Bld) [#/Vol] 0.73 10*3/uL <0.87 k/uL [facility] Monocytes/100 WBC (Bld) 12.0 % [facility] Neutrophils (Bld) [#/Vol] 3.49 10*3/uL 1.45 - 7.50 k/uL [facility] Neutrophils/100 WBC (Bld) 57.2 % [facility] Nucleated RBC (Bld) [#/Vol] <0.01 k/uL [facility] Nucleated RBC/100 WBC (Bld) [Ratio] 0.0 /100 WBC [facility] Platelet mean volume (Bld) [Entitic vol] 9.7 fL 9.0 - 12.7 fL [facility] Platelets (Bld) [#/Vol] 137 10*3/uL Low 150 - 400 k/uL [facility] RBC (Bld) [#/Vol] 5.22 10*6/uL 4.20 - 6.0 0 m/uL [facility] WBC (Bld) [#/Vol] 6.09 10*3/uL 3.70 - 11. 00 k/uL [facility] Basophils (Bld) [#/Vol] 0.04 10*3/uL Normal <0.11 [facility] Comment on above: Order Comment: Speci men Type: BLOOD SPECIMEN Ordering Facility: [facility] Address: [address] [place] [address] Performed By: #### 5 7782-5 #### [facility] CLIA [id number] [address] [place] [address] [place] #### STALMA DELIA [id number] #### [facility] CLIA [id number] [address] [place] [address] [place] Basophils/100 WBC (Bld) 0.7 % Normal [facility] Comment on above: Order Comment: Speci men Type: BLOOD SPECIMEN Ordering Facility: [facility] Address: [address] [place] [address] Performed By: #### 5 7782-5 #### [facility] CLIA [id number] [address] [place] [address] [place] #### STALMA DELIA [id number] #### [facility] CLIA [id number] [address] [place] [address] [place] Differential cell count method Nom (Bld) Auto Normal [facility] Comment on above: Order Comment: Speci men Type: BLOOD SPECIMEN Ordering Facility: [facility] Address: [address] [place] [address] Performed By: #### 5 7782-5 #### [facility] CLIA [id number] [address] [place] [address] [place] #### STALMA DELIA, [id number] #### [facility] CLIA [id number] [address] [place] [address] [place] Eosinophils (Bld) [#/Vol] 0.04 10*3/uL Normal <0.46 [facility] Comment on above: Order Comment: Speci men Type: BLOOD SPECIMEN Ordering Facility: [facility] Address: [address] [place] [address] Performed By: #### 5 7782-5 #### [facility] CLIA [id number] [address] [place] [address] [place] #### STALMA DELIA, [id number] #### [facility] CLIA [id number] [address] [place] [address] [place] Eosinophils/100 WBC (Bld) 0.7 % Normal [facility] Comment on above: Order Comment: Speci men Type: BLOOD SPECIMEN Ordering Facility: [facility] Address: [address] [place] [address] Performed By: #### 5 7782-5 #### [facility] CLIA [id number] [address] [place] [address] [place] #### STALMA DELIA [id number] #### [facility] CLIA [id number] [address] [place] [address] [place] Erythrocyte distribution width (RBC) [Ratio] 13.2 % Normal 11.5-15.0 [facility] Comment on above: Order Comment: Speci men Type: BLOOD SPECIMEN Ordering Facility: [facility] Address: [address] [place] [address] Performed By: #### 5 7782-5 #### [facility] CLIA [id number] [address] [place] [address] [place] #### STALMA DELIA, [id number] #### [facility] CLIA [id number] [address] [place] [address] [place] Hematocrit (Bld) [Volume fraction] 49.2 % Normal 39.0-51.0 [facility] Comment on above: Order Comment: Speci men Type: BLOOD SPECIMEN Ordering Facility: [facility] Address: [address] [place] [address] Performed By: #### 5 7782-5 #### [facility] CLIA [id number] [address] [place] [address] [place] #### STFRABHAY, [id number] #### [facility] CLIA [id number] [address] [place] [address] [place] Hemoglobin (Bld) [Mass/Vol] 16.8 g/dL Normal 13.0-17.0 [facility] Comment on above: Order Comment: Speci men Type: BLOOD SPECIMEN Ordering Facility: [facility] Address: [address] [place] [address] Performed By: #### 5 7782-5 #### [facility] CLIA [id number] [address] [place] [address] [place] #### STALMA DELIA, [id number] #### [facility] CLIA [id number] [address] [place] [address] [place] Immature granulocytes (Bld) [#/Vol] 0.05 10*3/uL Normal <0.10 [facility] Comment on above: Order Comment: Speci men Type: BLOOD SPECIMEN Ordering Facility: [facility] Address: [address] [place] [address] Performed By: #### 5 7782-5 #### [facility] CLIA [id number] [address] [place] [address] [place] #### STFRABHAY, [id number] #### [facility] CLIA [id number] [address] [place] [address] [place] Immature granulocytes/100 WBC (Bld) 0.8 % Normal [facility] Comment on above: Order Comment: Speci men Type: BLOOD SPECIMEN Ordering Facility: [facility] Address: [address] [place] [address] Performed By: #### 5 7782-5 #### [facility] CLIA [id number] [address] [place] [address] [place] #### JUDY [id number] #### [facility] CLIA [id number] [address] [place] [address] [place] Lymphocytes (Bld) [#/Vol] 1.74 10*3/uL Normal 1.00-4.00 [facility] Comment on above: Order Comment: Speci men Type: BLOOD SPECIMEN Ordering Facility: [facility] Address: [address] [place] [address] Performed By: #### 5 7782-5 #### [facility] CLIA [id number] [address] [place] [address] [place] #### JUDY [id number] #### [facility] CLIA [id number] [address] [place] [address] [place] Lymphocytes/100 WBC (Bld) 28.6 % Normal [facility] Comment on above: Order Comment: Speci men Type: BLOOD SPECIMEN Ordering Facility: [facility] Address: [address] [place] [address] Performed By: #### 5 7782-5 #### [facility] CLIA [id number] [address] [place] [address] [place] #### JUDY, [id number] #### [facility] CLIA [id number] [address] [place] [address] [place] MCH (RBC) [Entitic mass] 32.2 pg Normal 26.0-34.0 [facility] Comment on above: Order Comment: Speci men Type: BLOOD SPECIMEN Ordering Facility: [facility] Address: [address] [place] [address] Performed By: #### 5 7782-5 #### [facility] CLIA [id number] [address] [place] [address] [place] #### JUDY [id number] #### [facility] CLIA [id number] [address] [place] [address] [place] MCHC (RBC) [Mass/Vol] 34.1 g/dL Normal 30.5-36.0 [facility] Comment on above: Order Comment: Speci men Type: BLOOD SPECIMEN Ordering Facility: [facility] Address: [address] [place] [address] Performed By: #### 5 7782-5 #### [facility] CLIA [id number] [address] [place] [address] [place] #### JUDY [id number] #### [facility] CLIA [id number] [address] [place] [address] [place] MCV (RBC) [Entitic vol] 94.3 fL Normal 80.0-100.0 [facility] Comment on above: Order Comment: Speci men Type: BLOOD SPECIMEN Ordering Facility: [facility] Address: [address] [place] [address] Performed By: #### 5 7782-5 #### [facility] CLIA [id number] [address] [place] [address] [place] #### JUDY [id number] #### [facility] CLIA [id number] [address] [place] [address] [place] Monocytes (Bld) [#/Vol] 0.73 10*3/uL Normal <0.87 [facility] Comment on above: Order Comment: Speci men Type: BLOOD SPECIMEN Ordering Facility: [facility] Address: [address] [place] [address] Performed By: #### 5 7782-5 #### [facility] CLIA [id number] [address] [place] [address] [place] #### STALMA DELIA [id number] #### [facility] CLIA [id number] [address] [place] [address] [place] Monocytes/100 WBC (Bld) 12.0 % Normal [facility] Comment on above: Order Comment: Speci men Type: BLOOD SPECIMEN Ordering Facility: [facility] Address: [address] [place] [address] Performed By: #### 5 7782-5 #### [facility] CLIA [id number] [address] [place] [address] [place] #### STALMA DELIA, [id number] #### [facility] CLIA [id number] [address] [place] [address] [place] Neutrophils (Bld) [#/Vol] 3.49 10*3/uL Normal 1.45-7.50 [facility] Comment on above: Order Comment: Speci men Type: BLOOD SPECIMEN Ordering Facility: [facility] Address: [address] [place] [address] Performed By: #### 5 7782-5 #### [facility] CLIA [id number] [address] [place] [address] [place] #### STALMA DELIA, [id number] #### [facility] CLIA [id number] [address] [place] [address] [place] Neutrophils/100 WBC (Bld) 57.2 % Normal [facility] Comment on above: Order Comment: Speci men Type: BLOOD SPECIMEN Ordering Facility: [facility] Address: [address] [place] [address] Performed By: #### 5 7782-5 #### [facility] CLIA [id number] [address] [place] [address] [place] #### JUDY [id number] #### [facility] CLIA [id number] [address] [place] [address] [place] Nucleated RBC (Bld) [#/Vol] 10*3/uL Normal <0.01 [facility] Comment on above: Order Comment: Speci men Type: BLOOD SPECIMEN Ordering Facility: [facility] Address: [address] [place] [address] Performed By: #### 5 7782-5 #### [id number] [address] [place] [address] [place] #### JUDY [id number] #### [facility] CLIA [id number] [address] [place] [address] [place] Nucleated RBC/100 WBC (Bld) [Ratio] 0.0 /100 WBC Normal [facility] Comment on above: Order Comment: Speci men Type: BLOOD SPECIMEN Ordering Facility: [facility] Address: [address] [place] [address] Performed By: #### 5 7782-5 #### [facility] CLIA [id number] [address] [place] [address] [place] #### STALMA DELIA, [id number] #### [facility] CLIA [id number] [address] [place] [address] [place] Platelet mean volume (Bld) [Entitic vol] 9.7 fL Normal 9.0-12.7 [facility] Comment on above: Order Comment: Speci men Type: BLOOD SPECIMEN Ordering Facility: [facility] Address: [address] [place] [address] Performed By: #### 5 7782-5 #### [facility] CLIA [id number] [address] [place] [address] [place] #### STALMA DELIA, [id number] #### [facility] CLIA [id number] [address] [place] [address] [place] Platelets (Bld) [#/Vol] 137 10*3/uL Low 150-400 [facility] Comment on above: Order Comment: Speci men Type: BLOOD SPECIMEN Ordering Facility: [facility] Address: [address] [place] [address] Performed By: #### 5 7782-5 #### [facility] CLIA [id number] [address] [place] [address] [place] #### STALMA DELIA, [id number] #### [facility] CLIA [id number] [address] [place] [address] [place] RBC (Bld) [#/Vol] 5.22 10*6/uL Normal 4.20-6.00 [facility] Comment on above: Order Comment: Speci men Type: BLOOD SPECIMEN Ordering Facility: [facility] Address: [address] [place] [address] Performed By: #### 5 7782-5 #### [facility] CLIA [id number] [address] [place] [address] [place] #### STFRABHAY, [id number] #### [facility] CLIA [id number] [address] [place] [address] [place] WBC (Bld) [#/Vol] 6.09 10*3/uL Normal 3.70-11.00 [facility] Comment on above: Order Comment: Speci men Type: BLOOD SPECIMEN Ordering Facility: [facility] Address: [address] [place] [address] Performed By: #### 5 7782-5 #### [facility] CLIA [id number] [address] [place] [address] [place] #### STALMA DELIA, [id number] #### [facility] CLIA [id number] [address] [facility] [id number] [place], [place] [id number] [facility] CNOVon 11-19-2023 CNOV Office Visit (FAMPWS ) MACI HOWARD ([id number]) 1955 M Date Time Provider Department 11/19/23 8:40 AM [facility] During your visit today, we recorded the following information about you: Pulse Respiration Blood pressure Weight 74/minute 16/minute 124/70 106.1 kg Vilma Snow MD 11/19/2023 10:00 AM Signed Chief Complaint Patient presents with: Follow Up Diarrhea: Diarrhea - pt wondering if from increase statin dose HPI Maci Howard is a 68 year old male who presents here today for Above Complaints. Patient complaining today of chronic loose stools with 1 episode of watery diarrhea per month for the last year. Treating with imodium and bland diet which helps with symptoms. Thought this may be related to his higher dose of Lipitor, but this was changed 4-5 months ago. Has not identified any trigger foods. Has not tried probiotic or fiber. CAD s/p SHANIQUA to LAD: managed by [facility] Cardiology. No changes to regimen at last OV in December. Asymptomatic on medical management. Has not needed nitro since his last OV with cardiology. BP well controlled on current regimen without side effects. Asthma-COPD overlap: managed by Dr. Pearl's office. Pulmonology took him off of his Breo because it was not helping at all with his symptoms. Started in Nucala injections which was has been working well. Has had productive cough with white sputum, SOB, and wheezing since. Using his albuterol inhaler about 2 times per month with improvement in his symptoms. Has mucinex for PRN. Denies waking up at night coughing. Using CPAP nightly [...] History of CVA (cerebrovascular accident) 06/20/2014 mild History of prostate cancer Obesity (BMI 30.0-34.9) LESLY (obstructive sleep apnea) Consistently compliant with CPAP. PFO (patent foramen ovale) Prostate cancer (HCC) 2012 s/p prostatectomy, S/P prostatectomy Previous Surgical History PAST SURGICAL HISTORY Procedure Laterality Date ESOPHAGOGASTRODUODENOSCOPY TRANSORAL DIAGNOSTIC 05/01/2007 EGD ESOPHAGOGASTRODUODENOSCOPY TRANSORAL DIAGNOSTIC 03/21/2013 [facility] EGD PAST SURGICAL HISTORY OF submandibular gland [...] COPD. Patient Allergies ALLERGIES Allergen Reactions Parafopedro Palomo [facility] [* Current Medications Current Outpatient Medications on File Prior to Visit Medication Sig clopidogrel (PLAVIX) 75 mg tablet Take 1 tablet by mouth once daily. losartan (COZAAR) 25 mg tablet Take 0.5 tablets by mouth once daily. pantoprazole DR (PROTONIX) 20 mg tablet TAKE 1 TABLET DAILY BEFORE BREAKFAST. TAKE ON AN EMPTYSTOMACH, 1/2 HOUR BEFORE A MEAL. atorvastatin (LIPITOR) 80 mg tablet Take 1 tablet by mouth once daily. albuterol sulfate (PROAIR HFA INHALATION) Inhale as instructed as needed. NUCALA 100 mg/mL injection Inject 100 mg subcutaneously every 4 weeks. fluticasone (FLONASE) 50 mcg/actuation nasal spray Use 2 Sprays in each nostril once daily. Rinse mouth after use. montelukast (SINGULAIR) 10 mg tablet Take 1 [...] visit. Social History Social History Tobacco Use Sm (more content not included)... 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 Pt asking this LUAN to send message. Per CAROLANN 08/16/22, PSA in 2 months to check doubling time, if 0.4 or higher will recommend a MRI and Bone Scan . Pt had repeat PSA 10/14/22 and was 0.22. Would like to have again and to see if appointment needed. Please review and advise. LUAN Hendrickson Rachel L, MA 11/19/2023 4:04 PM Signed PSA changed from screening to diagnostic with client services. Pt aware that we will call with results. Tre Flores MA Allergies As of Date: 11/19/2023 Noted Allergy Reaction LOURDES PALOMO DSC (CHLORZOXAZONE) 03/11/2006 Date Reviewed: 11/19/2023 Reviewed by: Tre Flores MA - Fully Assessed Reason for Visit: PSA question [Other] Primary Visit Diagnosis:Prostate cancer (HCC) [C61] Order(s):PSA/PROSTSPECAG DIAG [SQPSA] Order #: [id number] FUTURE Prescriptions as of 11/19/2023 - clopidogrel (PLAVIX) 75 mg tablet Take 1 tablet by mouth once daily. - losartan (COZAAR) 25 mg tablet Take 0.5 tablets by mouth once daily. - pantoprazole DR (PROTONIX) 20 mg tablet TAKE 1 TABLET DAILY BEFORE BREAKFAST. TAKE ON AN EMPTYSTOMACH, 1/2 HOUR BEFORE A MEAL. - atorvastatin (LIPITOR) 80 mg tablet Take 1 tablet by mouth once daily. - albuterol sulfate (PROAIR HFA INHALATION) Inhale as instructed as needed. - NUCALA 100 mg/mL injection Inject 100 mg subcutaneously every 4 weeks. - fluticasone (FLONASE) 50 mcg/actuation nasal spray Use 2 Sprays in each nostril once daily. Rinse mouth after use. - montelukast (SINGULAIR) 10 mg tablet Take 1 tablet by mouth daily at bedtime. - NITROGLYCERIN SUBLINGUAL Dissolve under the tongue as needed. - CPAP - albuterol HFA (VENTOLIN HFA) 90 mcg/actuation inhaler Inhale 2 Puffs as instructed every 4 hours as needed. - aspirin 81 mg chewable tablet Take 81 mg by mouth once daily. Problem List As Of Date 11/19/2023 Noted Resolved DYSPHAGIA [787.2] Esophagitis, unspecified [K20.90] 05/01/2007 DIAPHRAGMATIC HERNIA [K44.9] 05/01/2007 FAMILY HX PROSTATIC MALIGNANCY [Z80.42] 01/19/2008 Elevated prostate specific antigen (PSA) [R97.2*01/19/2008 Other and unspecified hyperlipidemia [E78.5] 01/19/2008 12/10/2017 Prostate cancer (HCC) [C61] 05/26/2013 02/19/2023 HLD (hyperlipidemia) [E78.5] 01/17/2014 GERD (gastroesophageal reflux disease) [K21.9] 01/17/2014 Hypertensive cardiovascular disease [I11.9] 06/15/2014 Stroke (HCC) [I63.9] 08/09/2014 Chronic anticoagulation [Z79.01] 08/09/2014 09/10/2017 Sleep apnea [G47.30] 12/14/2014 06/02/2017 PFO (patent foramen ovale) [Q21.12] 02/12/2015 LESLY on CPAP [G47.33] 08/23/2015 Cerebrovascular accident (CVA) due to embolism *02/25/2016 LESLY (obstructive sleep apnea) [G47.33] 06/02/2017 History of CVA (cerebrovascular accident) [Z86.*06/20/2014 CAD (coronary artery disease) [I25.10] Cough [R05.9] 09/08/2017 12/10/2017 SOB (shortness of breath) [R06.02] 09/08/2017 Wheezing [R06.2] 09/08/2017 12/10/2017 Depression [F32.A] 12/11/2018 Severe persistent asthma, uncomplicated [J45.50]12/20/2019 Essential hypertension [I10] 08/09/2021 Asthma [J45.909] 08/09/2021 S/P prostatectomy [Z90.79] 02/19/2023 History of prostate cancer [Z85.46] 02/19/2023 Chronic bronchitis (HCC) [J42] 02/19/2023 Encounter Status:Closed by TRE FLORES on 11/19/23 Normal [facility] Comprehensive metabolic 2000 panelon 11-19-2023 Albumin [Mass/Vol] 4.1 g/dL 3.9 - 4.9 g/dL [facility] ALP [Catalytic activity/Vol] 148 U/L High 38 - 113 U/L [facility] ALT [Catalytic activity/Vol] 28 U/L 10 - 54 U/L [facility] Anion gap [Moles/Vol] 12 mmol/L 9 - 18 mmol/L [facility] AST [Catalytic activity/Vol] 27 U/L 14 - 40 U/L [facility] Bilirubin [Mass/Vol] 1.2 mg/dL 0.2 - 1.3 mg/dL [facility] Calcium [Mass/Vol] 9.0 mg/dL 8.5 - 10.2 mg/dL [facility] Chloride [Moles/Vol] 106 mmol/L High 97 - 105 mmol/L [facility] CO2 [Moles/Vol] 22 mmol/L 22 - 30 mmol/L [facility] Creatinine [Mass/Vol] 1.08 mg/dL 0.73 - 1.22 mg/dL [facility] Estimated Glomerular Filtration Rate 74 mL/min/1.73m >=60 mL/min/1.73m [facility] Glucose [Mass/Vol] 89 mg/dL 74 - 99 mg/dL [facility] Potassium [Moles/Vol] 4.1 mmol/L 3.7 - 5.1 mmol/L [facility] Protein [Mass/Vol] 6.9 g/dL 6.3 - 8.0 g/dL [facility] Sodium [Moles/Vol] 140 mmol/L 136 - 144 mmol/L [facility] Urea nitrogen [Mass/Vol] 14 mg/dL 9 - 24 mg/dL [facility] Albumin [Mass/Vol] 4.1 g/dL Normal 3.9-4.9 [facility] Comment on above: Order Comment: Speci men Type: BLOOD SPECIMEN Ordering Facility: [facility] Address: [address] [place] [address] Performed By: #### 5 7782-5 #### [facility] CLIA [id number] [address] [place] [address] [place] #### STFRABHAY, [id number] #### [facility] CLIA [id number] [address] [place] [address] [place] ALP [Catalytic activity/Vol] 148 U/L High 38-113 [facility] Comment on above: Order Comment: Speci men Type: BLOOD SPECIMEN Ordering Facility: [facility] Address: [address] [place] [address] Performed By: #### 5 7782-5 #### [facility] CLIA [id number] [address] [place] [address] [place] #### JUDY [id number] #### [facility] CLIA [id number] [address] [place], [place] [address] [place] ALT [Catalytic activity/Vol] 28 U/L Normal 10-54 [facility] Comment on above: Order Comment: Speci men Type: BLOOD SPECIMEN Ordering Facility: [facility] Address: [address] [id number] Performed By: #### 5 7782-5 #### [facility] CLIA [id number] [address] [place] [address] [place] #### JUDY [id number] #### [facility] CLIA [id number] [address] [place] [address] [place] Anion gap [Moles/Vol] 12 mmol/L Normal 9-18 [facility] Comment on above: Order Comment: Speci men Type: BLOOD SPECIMEN Ordering Facility: [facility] Address: [address] [place] [address] Performed By: #### 5 7782-5 #### [facility] CLIA [id number] [address] [place] [address] [place] #### JUDY [id number] #### [facility] CLIA [id number] [address] [place], [place] [address] [place] AST [Catalytic activity/Vol] 27 U/L Normal 14-40 [facility] Comment on above: Order Comment: Speci men Type: BLOOD SPECIMEN Ordering Facility: [facility] Address: [address] [id number] Performed By: #### 5 7782-5 #### [facility] CLIA [id number] [address] [place], [place] [address] [place] #### JUDY, [id number] #### [facility] CLIA [id number] [address] [place] [address] [place] Bilirubin [Mass/Vol] 1.2 mg/dL Normal 0.2-1.3 [facility] Comment on above: Order Comment: Speci men Type: BLOOD SPECIMEN Ordering Facility: [facility] Address: [address] [place] [address] Performed By: #### 5 7782-5 #### [facility] CLIA [id number] [address] [place] [address] [place] #### JUDY [id number] #### [facility] CLIA [id number] [address] [place] [address] [place] Calcium [Mass/Vol] 9.0 mg/dL Normal 8.5-10.2 [facility] Comment on above: Order Comment: Speci men Type: BLOOD SPECIMEN Ordering Facility: [facility] Address: [address] [place] [address] Performed By: #### 5 7782-5 #### [facility] CLIA [id number] [address] [place] [address] [place] #### JUDY [id number] #### [facility] CLIA [id number] [address] [place] [address] [place] Chloride [Moles/Vol] 106 mmol/L High 97-105 [facility] Comment on above: Order Comment: Speci men Type: BLOOD SPECIMEN Ordering Facility: [facility] Address: [address] [place] [address] Performed By: #### 5 7782-5 #### [facility] CLIA [id number] [address] [place] [address] [place] #### JUDY [id number] #### [facility] CLIA [id number] [address] [place] [address] [place] CO2 [Moles/Vol] 22 mmol/L Normal 22-30 [facility] Comment on above: Order Comment: Specmeme olivo Type: BLOOD SPECIMEN Ordering Facility: [facility] Address: [address] [place] [address] Performed By: #### 5 7782-5 #### [facility] CLIA [id number] [address] [place] [address] [place] #### STFRABHAY, [id number] #### [facility] CLIA [id number] [address] [place] [address] [place] Creatinine [Mass/Vol] 1.08 mg/dL Normal 0.73-1.22 [facility] Comment on above: Order Comment: Speci men Type: BLOOD SPECIMEN Ordering Facility: [facility] Address: [address] [place] [address] Performed By: #### 5 7782-5 #### [facility] CLIA [id number] [address] [place] [address] [place] #### STFRABHAY, [id number] #### [facility] CLIA [id number] [address] [place] [address] [place] Creatinine and Glomerular filtration rate.predicted panel (S/P/Bld) 74 mL/min/1.73m??? Normal >=60 [facility] Comment on above: Order Comment: Speci men Type: BLOOD SPECIMEN Ordering Facility: [facility] Address: [address] [place] [address] Result Comment: Lupe mated Glomerular Filtration Rate (eGFR) is calculated using the 2020 CKD-EPI creatinine equation. This equation utilizes serum creatinine, sex, and age as parameters. The creatinine assay has traceable calibration to isotope dilution-mass spectrometry. Refer to KDIGO guidelines for clinical interpretation. In patients with unstable renal function, e.g. those with acute kidney injury, the eGFR may not accurately reflect actual GFR. Performed By: #### 5 7782-5 #### [facility] CLIA [id number] [address] [place] [address] [place] #### STALMA DELIA, [id number] #### [facility] CLIA [id number] [address] [place] [address] [place] Glucose [Mass/Vol] 89 mg/dL Normal 74-99 [facility] Comment on above: Order Comment: Specmeme olivo Type: BLOOD SPECIMEN Ordering Facility: [facility] Address: [address] [place] [address] Result Comment: The [place] Diabetes Association (ADA) provides guidance for cutoff values for fasting glucose and random glucose. The ADA defines fasting as no caloric intake for at least 8 hours. Fasting plasma glucose results between 100 to 125 [...] Standards of Medical Care in Diabetes 2016, [place] Diabetes Association. Diabetes Care. 2016.39(Suppl 1). Performed By: #### 5 7782-5 #### [facility] CLIA [id number] [address] [place] [address] [place] #### STALMA [place]IA, [id number] #### [facility] CLIA [id number] [address] [place] [address] [place] Potassium [Moles/Vol] 4.1 mmol/L Normal 3.7-5.1 [facility] Comment on above: Order Comment: David olivo Type: BLOOD SPECIMEN Ordering Facility: [facility] Address: [address] [place] [address] Performed By: #### 5 7782-5 #### [facility] CLIA [id number] [address] [place] [address] [place] #### JUDY [id number] #### [facility] CLIA [id number] [address] [place] [address] [place] Protein [Mass/Vol] 6.9 g/dL Normal 6.3-8.0 [facility] Comment on above: Order Comment: Speci men Type: BLOOD SPECIMEN Ordering Facility: [facility] Address: [address] [place] [address] Performed By: #### 5 7782-5 #### [facility] CLIA [id number] [address] [place] [address] [place] #### JUDY [id number] #### [facility] CLIA [id number] [address] [place] [address] [place] Sodium [Moles/Vol] 140 mmol/L Normal 136-144 [facility] Comment on above: Order Comment: Speci men Type: BLOOD SPECIMEN Ordering Facility: [facility] Address: [address] [place] [address] Performed By: #### 5 7782-5 #### [facility] CLIA [id number] [address] [place] [address] [place] #### JUDY [id number] #### [facility] CLIA [id number] [address] [place] [address] [place] Urea nitrogen [Mass/Vol] 14 mg/dL Normal 9-24 [facility] Comment on above: Order Comment: Speci men Type: BLOOD SPECIMEN Ordering Facility: [facility] Address: [address] [place] [address] Performed By: #### 5 7782-5 #### [facility] CLIA [id number] [address] [place] [address] [place] #### JUDY [id number] #### [facility] CLIA [id number] [address] [place] [address] [place] Lipid 1996 panelon 4 Cholesterol [Mass/Vol] 146 mg/dL <200 mg/dL [facility] Cholesterol in HDL [Mass/Vol] 30 mg/dL Low >39 mg/dL [facility] Cholesterol in LDL [Mass/Vol] 96 mg/dL <100 mg/dL [facility] Cholesterol in LDL/Cholesterol in HDL [Mass ratio] 3.20 {ratio} High <2.54 [facility] Cholesterol in VLDL [Mass/Vol] 20 mg/dL <30 mg/dL [facility] Cholesterol non HDL [Mass/Vol] 116 mg/dL <130 mg/dL [facility] Cholesterol.total /Cholesterol in HDL [Mass ratio] 4.87 {ratio} <5.10 [facility] Fasting Time 12 hrs [facility] Triglyceride [Mass/Vol] 102 mg/dL <150 mg/dL [facility] Cholesterol [Mass/Vol] 146 mg/dL Normal <200 [facility] Comment on above: Order Comment: Speci men Type: BLOOD SPECIMEN Ordering Facility: [facility] Address: [address] [place] [address] Result Comment: <200 mg/dL, Desirable 200-239 mg/dL, Borderline high >239 mg/dL, High Performed By: #### 5 7782-5 #### [facility] CLIA [id number] [address] [place] [address] [place] #### JUDY, [id number] #### [facility] CLIA [id number] [address] [place] [address] [place] Cholesterol in HDL [Mass/Vol] 30 mg/dL Low >39 [facility] Comment on above: Order Comment: Speci men Type: BLOOD SPECIMEN Ordering Facility: [facility] Address: [address] [place] [address] Result Comment: 40-5 9 mg/dL, Acceptable >59 mg/dL, High: Negative risk factor for coronary heart disease <40 mg/dL, Low: Positive risk factor for coronary heart disease Performed By: #### 5 7782-5 #### [facility] CLIA [id number] [address] [place] [address] [place] #### JUDY [id number] #### [facility] CLIA [id number] [address] [place] [address] Cholesterol in LDL [Mass/Vol] 96 mg/dL Normal <100 [facility] Comment on above: Order Comment: David olivo Type: BLOOD SPECIMEN Ordering Facility: [facility] Address: [address] [place] [address] Result Comment: <100 mg/dL, Optimal 100-129 mg/dL, Near optimal/above optimal 130-159 mg/dL, Borderline high 160-189 mg/dL, High >189 mg/dL, Very high Secondary prevention optimal LDL Cholesterol levels are recommended to be < 70 mg/dL Performed By: #### 5 7782-5 #### [facility] CLIA [id number] [address] [place] [address] [place] #### JUDY, [id number] #### [facility] CLIA [id number] [address] [place] [address] STATES [facility] Cholesterol in LDL/Cholesterol in HDL [Mass ratio] 3.20 {ratio} High <2.54 [facility] Comment on above: Order Comment: David olivo Type: BLOOD SPECIMEN Ordering Facility: [facility] Address: [address] [place] [address] Result Comment: Ric song: 1. National Cholesterol Education Program ATP III Guideline At-A-Glance Quick Desk Reference: National Heart, Lung, and Blood [place]. National Institutes of Health. 2001: NIH Publication No. 01-3305. 2. An International Atherosclerosis Society position paper: global recommendations for the management of dyslipidemia: executive summary, Atherosclerosis. 2014: 232(2):410-413. Performed By: #### 5 7782-5 #### [facility] CLIA [id number] [address] [place] [address] [place] #### JUDY [id number] #### [facility] CLIA [id number] [address] [place] [address] [place] Cholesterol in VLDL [Mass/Vol] 20 mg/dL Normal <30 [facility] Comment on above: Order Comment: Speci men Type: BLOOD SPECIMEN Ordering Facility: [facility] Address: [address] [place] [address] Performed By: #### 5 7782-5 #### [facility] CLIA [id number] [address] [place] [address] [place] #### JUDY [id number] #### [facility] CLIA [id number] [address] [place] [address] [place] Cholesterol non HDL [Mass/Vol] 116 mg/dL Normal <130 [facility] Comment on above: Order Comment: David olivo Type: BLOOD SPECIMEN Ordering Facility: [facility] Address: [address] [place] [address] Result Comment: <130 mg/dL, Optimal 130-159 mg/dL, Near optimal/above optimal 160-189 mg/dL, Borderline high 190-219 mg/dL, High >219 mg/dL, Very high Secondary prevention optimal non HDL Cholesterol levels are recommended to be <100 mg/dL Performed By: #### 5 7782-5 #### [facility] CLIA [id number] [address] [place] [address] [place] #### JUDY [id number] #### [facility] CLIA [id number] [address] [place] [address] [place] Cholesterol.total /Cholesterol in HDL [Mass ratio] 4.87 {ratio} Normal <5.10 [facility] Comment on above: Order Comment: Speci men Type: BLOOD SPECIMEN Ordering Facility: [facility] Address: [address] [place] [address] Performed By: #### 5 7782-5 #### [facility] CLIA [id number] [address] [place] [address] [place] #### JUDY [id number] #### [facility] CLIA [id number] [address] [place] [address] [place] FASTING TIME 12 hrs Normal [facility] Comment on above: Order Comment: Speci men Type: BLOOD SPECIMEN Ordering Facility: [facility] Address: [address] [place] [address] Performed By: #### 5 7782-5 #### [facility] CLIA [id number] [address] [place] [address] [place] #### JUDY [id number] #### [facility] CLIA [id number] [address] [place] [address] [place] Triglyceride [Mass/Vol] 102 mg/dL Normal <150 [facility] Comment on above: Order Comment: Speci men Type: BLOOD SPECIMEN Ordering Facility: [facility] Address: [address] [place] [address] Result Comment: <150 mg/dL, Normal 150-199 mg/dL, Borderline high 200-499 mg/dL, High >499 mg/dL, Very high Performed By: #### 5 7782-5 #### [facility] CLIA [id number] [address] [place] [address] [place] #### STALMA DELIA, [id number] #### [facility] CLIA [id number] [address] [place] [address] [place] [facility] Prostate specific Ag [Mass/Vol] 0.26 ng/mL Normal <2.60 [facility] Comment on above: Order Comment: Speci men Type: BLOOD SPECIMEN Ordering Facility: [facility] Address: [address] [place] [address] Result Comment: Raheel marie PSA test methodology used is the Electrochemiluminescence Immunoassay by [employer]. Total PSA values by differing methodologies cannot be interchanged. Performed By: #### 5 7782-5 #### [facility] CLIA [id number] [address] [place] [address] [place] #### STFREV, [id number] #### [facility] CLIA [id number] [address] [place] [address] [place] PSA/PROSTSPECAG DIAGon 11-18 Prostate specific Ag [Mass/Vol] 0.26 ng/mL <2.60 ng/mL [facility] Jason 07-03-2023 TEMI Telephone (FAMRamónWS) MACI HOWARD ([id number]) 1955 M Date Time Provider Department 07/03/23 VILMA SNOW During your visit today, we recorded the following information about you: Clara Vitale LPN 07/03/2023 9:11 AM Signed ----- Message from Vilma Snow MD sent at 07/02/2023 5:19 PM EST ----- Cholesterol has only come down slightly on Lipitor 40 mg. If tolerating without side effects, would recommend increase to 80 mg daily with recheck at next OV. Clara Vitale LPN 07/03/2023 9:17 AM Signed Phoned patient and reviewed results and recommendations with him. Patient hesitant on increase but finally agreed to trying the 80mg daily and seeing how he tolerates it. Vilma Snow MD 07/03/2023 11:08 AM Signed Rx sent. Allergies As of Date: 07/03/2023 Noted Allergy Reaction LOURDES PALOMO DSC (CHLORZOXAZONE) 03/11/2006 Date Reviewed: 02/19/2023 Reviewed by: Tre Flores MA - Fully Assessed Reason for Visit: Results [95] Prescriptions as of 12/02/2023 - clopidogrel (PLAVIX) 75 mg tablet Take 1 tablet by mouth once daily. - losartan (COZAAR) 25 mg tablet Take 0.5 tablets by mouth once daily. - pantoprazole DR (PROTONIX) 20 mg tablet TAKE 1 TABLET DAILY BEFORE BREAKFAST. TAKE ON AN EMPTYSTOMACH, 1/2 HOUR BEFORE A MEAL. - atorvastatin (LIPITOR) 80 mg tablet Take 1 tablet by mouth once daily. - albuterol sulfate (PROAIR HFA INHALATION) Inhale as instructed as needed. - NUCALA 100 mg/mL injection Inject 100 mg subcutaneously every 4 weeks. - fluticasone (FLONASE) 50 mcg/actuation nasal spray Use 2 Sprays in each nostril once daily. Rinse mouth after use. - montelukast (SINGULAIR) 10 mg tablet Take 1 tablet by mouth daily at bedtime. - NITROGLYCERIN SUBLINGUAL Dissolve under the tongue as needed. - CPAP - albuterol HFA (VENTOLIN HFA) 90 mcg/actuation inhaler Inhale 2 Puffs as instructed every 4 hours as needed. - aspirin 81 mg chewable tablet Take 81 mg by mouth once daily. Problem List As Of Date 07/03/2023 Noted Resolved DYSPHAGIA [787.2] Esophagitis, unspecified [K20.90] 05/01/2007 DIAPHRAGMATIC HERNIA [K44.9] 05/01/2007 FAMILY HX PROSTATIC MALIGNANCY [Z80.42] 01/19/2008 Elevated prostate specific antigen (PSA) [R97.2*01/19/2008 Other and unspecified hyperlipidemia [E78.5] 01/19/2008 12/10/2017 Prostate cancer (HCC) [C61] 05/26/2013 02/19/2023 HLD (hyperlipidemia) [E78.5] 01/17/2014 GERD (gastroesophageal reflux disease) [K21.9] 01/17/2014 Hypertensive cardiovascular disease [I11.9] 06/15/2014 Stroke (HCC) [I63.9] 08/09/2014 Chronic anticoagulation [Z79.01] 08/09/2014 09/10/2017 Sleep apnea [G47.30] 12/14/2014 06/02/2017 PFO (patent foramen ovale) [Q21.12] 02/12/2015 LESLY on CPAP [G47.33] 08/23/2015 Cerebrovascular accident (CVA) due to embolism *02/25/2016 LESLY (obstructive sleep apnea) [G47.33] 06/02/2017 History of CVA (cerebrovascular accident) [Z86.*06/20/2014 CAD (coronary artery disease) [I25.10] Cough [R05.9] 09/08/2017 12/10/2017 SOB (shortness of breath) [R06.02] 09/08/2017 Wheezing [R06.2] 09/08/2017 12/10/2017 Depression [F32.A] 12/11/2018 Severe persistent asthma, uncomplicated [J45.50]12/20/2019 Essential hypertension [I10] 08/09/2021 Asthma [J45.909] 08/09/2021 S/P prostatectomy [Z90.79] 02/19/2023 History of prostate cancer [Z85.46] 02/19/2023 Chronic bronchitis (HCC) [J42] 02/19/2023 Prescriptions ordered this encounter Disp Refills Start End ATORVASTATIN 80 MG TABLET 90 t* 1 07/03/2023 09/08/2023 Route: ORAL Sig: Take 1 tablet by mouth once daily. Medications Discontinued During This Encounter Prescriptions - atorvastatin (LIPITOR) 40 mg tablet (Discontinued) Take 1 tablet by mouth once daily. Encounter Status:Closed by CLARA VITALE on 12/02/23 Normal [facility] LIPID PANEL, NONFASTINGon Cholesterol [Mass/Vol] 150 mg/dL Normal <200 [facility] Comment on above: Order Comment: Speci men Type: BLOOD SPECIMEN Ordering Facility: [facility] Address: [address] [place] [address] Result Comment: <200 mg/dL, Desirable 200-239 mg/dL, Borderline high >239 mg/dL, High Performed By: #### 5 7021-8 #### [facility] CLIA [id number] [address] [place] [address] OF [place] HDL CHOLESTEROL, NF 34 mg/dL Low >39 [facility] Comment on above: Order Comment: David olivo Type: BLOOD SPECIMEN Ordering Facility: [facility] Address: [address] [place] [address] Result Comment: 40-5 9 mg/dL, Acceptable >59 mg/dL, High: Negative risk factor for coronary heart disease <40 mg/dL, Low: Positive risk factor for coronary heart disease Performed By: #### 5 7021-8 #### [facility] CLIA [id number] [address] [place] [address] LDL CHOLESTEROL, NF 97 mg/dL Normal <100 [facility] Comment on above: Order Comment: David olivo Type: BLOOD SPECIMEN Ordering Facility: [facility] Address: [address] [place] [address] Result Comment: <100 mg/dL, Optimal 100-129 mg/dL, Near optimal/above optimal 130-159 mg/dL, Borderline high 160-189 mg/dL, High >189 mg/dL, Very high Secondary prevention optimal LDL Cholesterol levels are recommended to be < 70 mg/dL Performed By: #### 5 7021-8 #### [facility] [id number] [address] [place] [address] [place] LDL/HDL RATIO, NF 2.85 mg/dL High <2.54 [facility] Comment on above: Order Comment: [facility] Type: BLOOD SPECIMEN Ordering Facility: [facility] Address: [address] [place] [address] Result Comment: Ric song: 1. National Cholesterol Education Program ATP III Guideline At-A-Glance Quick Desk Reference: National Heart, Lung, and Blood [place]. National Institutes of Health. 2001: NIH Publication No. 01-3305. 2. An International Atherosclerosis Society position paper: global recommendations for the management of dyslipidemia: executive summary, Atherosclerosis. 2014: 232(2):410-413. Performed By: #### 5 7021-8 #### [facility] CLIA [id number] [address] [place] [address] [place] NON HDL CHOL, NF 116 mg/dL Normal <130 [facility] Comment on above: Order Comment: David olivo Type: BLOOD SPECIMEN Ordering Facility: [facility] Address: [address] [place] [address] Result Comment: <130 mg/dL, Optimal 130-159 mg/dL, Near optimal/above optimal 160-189 mg/dL, Borderline high 190-219 mg/dL, High >219 mg/dL, Very high Secondary prevention optimal non HDL Cholesterol levels are recommended to be <100 mg/dL Performed By: #### 5 7021-8 #### [facility] CLIA [id number] [address] [place] [address] STATES OF [facility] T CHOL/HDL RATIO NF 4.41 mg/dL Normal <5.10 [facility] Comment on above: Order Comment: David olivo Type: BLOOD SPECIMEN Ordering Facility: [facility] Address: [address] [place] [address] Performed By: #### 5 7021-8 #### [facility] CLIA [id number] [address] [place] [address] [place] TRIGLYCERIDES, NF 95 mg/dL Normal <150 [facility] Comment on above: Order Comment: David olivo Type: BLOOD SPECIMEN Ordering Facility: [facility] Address: [address] [place] [address] Result Comment: <150 mg/dL, Normal 150-199 mg/dL, Borderline high 200-499 mg/dL, High >499 mg/dL, Very high Performed By: #### 5 7021-8 #### [facility] CLIA [id number] [address] [place] [address] [place] VLDL CHOLESTEROL, NF 19 mg/dL Normal <30 [facility] Comment on above: Order Comment: Speci men Type: BLOOD SPECIMEN Ordering Facility: [facility] Address: [address] [place] [address] Performed By: #### 5 7021-8 #### [facility] CLIA [id number] [address] [place] [address] [place] CBC W Auto Differential pane l (Bld)on 08-22-2022 Basophils (Bld) [#/Vol] 0.06 10*3/uL <0.11 k/uL [facility] Basophils/100 WBC (Bld) 0.9 % [facility] Differential cell count method Nom (Bld) Auto [facility] Eosinophils (Bld) [#/Vol] 0.06 10*3/uL <0.46 k/uL [facility] Eosinophils/100 WBC (Bld) 0.9 % [facility] Erythrocyte distribution width (RBC) [Ratio] 12.9 % 11.5 - 15.0 % [facility] Hematocrit (Bld) [Volume fraction] 50.1 % 39.0 - 51.0 % [facility] Hemoglobin (Bld) [Mass/Vol] 17.1 g/dL High 13.0 - 17.0 g/dL [facility] Immature granulocytes (Bld) [#/Vol] 0.11 10*3/uL High <0.10 k/uL [facility] Immature granulocytes/100 WBC (Bld) 1.7 % [facility] Lymphocytes (Bld) [#/Vol] 1.73 10*3/uL 1.00 - 4.00 k/uL [facility] Lymphocytes/100 WBC (Bld) 26.1 % [facility] MCH (RBC) [Entitic mass] 31.7 pg 26.0 - 34.0 pg [facility] MCHC (RBC) [Mass/Vol] 34.1 g/dL 30.5 - 36.0 g/dL [facility] MCV (RBC) [Entitic vol] 92.8 fL 80.0 - 100.0 fL [facility] Monocytes (Bld) [#/Vol] 0.65 10*3/uL <0.87 k/uL [facility] Monocytes/100 WBC (Bld) 9.8 % [facility] Neutrophils (Bld) [#/Vol] 4.01 10*3/uL 1.45 - 7.50 k/uL [facility] Neutrophils/100 WBC (Bld) 60.6 % [facility] Nucleated RBC (Bld) [#/Vol] <0.01 k/uL [facility] Nucleated RBC/100 WBC (Bld) [Ratio] 0.0 /100 WBC [facility] Platelet mean volume (Bld) [Entitic vol] 9.2 fL 9.0 - 12.7 fL [facility] Platelets (Bld) [#/Vol] 178 10*3/uL 150 - 400 k/uL [facility] RBC (Bld) [#/Vol] 5.40 10*6/uL 4.20 - 6.0 0 m/uL [facility] WBC (Bld) [#/Vol] 6.62 10*3/uL 3.70 - 11. 00 k/uL [facility] Comprehensive metabolic 2000 panelon 08-22-2022 Albumin [Mass/Vol] 3.9 g/dL 3.9 - 4.9 g/dL [facility] ALP [Catalytic activity/Vol] 111 U/L 38 - 113 U/L [facility] ALT [Catalytic activity/Vol] 21 U/L 10 - 54 U/L [facility] Anion gap [Moles/Vol] 10 mmol/L 9 - 18 mmol/L [facility] AST [Catalytic activity/Vol] 20 U/L 14 - 40 U/L [facility] Bilirubin [Mass/Vol] 0.6 mg/dL 0.2 - 1.3 mg/dL [facility] Calcium [Mass/Vol] 9.2 mg/dL 8.5 - 10.2 mg/dL [facility] Chloride [Moles/Vol] 106 mmol/L High 97 - 105 mmol/L [facility] CO2 [Moles/Vol] 24 mmol/L 22 - 30 mmol/L [facility] Creatinine [Mass/Vol] 1.07 mg/dL 0.73 - 1.22 mg/dL [facility] Estimated Glomerular Filtration Rate 76 mL/min/1.73m >=60 mL/min/1.73m [facility] Glucose [Mass/Vol] 100 mg/dL High 74 - 99 mg/dL [facility] Potassium [Moles/Vol] 4.2 mmol/L 3.7 - 5.1 mmol/L [facility] Protein [Mass/Vol] 6.7 g/dL 6.3 - 8.0 g/dL [facility] Sodium [Moles/Vol] 140 mmol/L 136 - 144 mmol/L [facility] Urea nitrogen [Mass/Vol] 20 mg/dL 9 - 24 mg/dL [facility] UA DIP, URINE (POC)on 2021 BILIRUBIN UA (POCT) Negative Negative [facility] CLARITY UA (POCT) Clear [facility] COLOR UA (POCT) Dark yellow [facility] GLUCOSE UA (POCT) Negative Negative mg/dL [facility] HEMOGLOBIN/BLOOD UA (POCT) Negative Negative [facility] KETONE UA (POCT) Trace Negative mg/dL [facility] LEUKOCYTES UA (POCT) Negative Negative [facility] NITRITE UA (POCT) Negative Negative [facility] PH UA (POCT) 5.5 4.5 - 8.0 [facility] Protein Ql (U) Negative Negative mg/dL [facility] SPECIFIC GRAVITY UA (POCT) 1.025 1.005 - 1.030 [facility] UROBILINOGEN UA (POCT) 1.0 E.U./dL Normal E.U./dL [facility] AFB Cult and Stainon 018 AFB Cult and Stain Smear Result - No acid fast bacilli seen by fluorochrome stain Culture Result - No Acid Fast Bacilli isolated after 44 days [facility] Comment on above: Performed By: #### A FC ####[facility] [place], [place] [phone] Eosin Smron 11-10-2017 Eosinophils 6% EOSINOPHILS PRESE NT (100 WBC COUNTED). [facility] Comment on above: Result Comment: This test was developed and its performance characteristics determined by [facility]'s Dre [facility]ys[facility]f [facility] [place] ([facility]).It has not been cleared or approved by the FDA. [facility] is regulated under CLIA as qualified to perform high-complexity testing.This test is used for clinical purposes. It should not be regarded as investigational or for research. Performed By: #### E OSSMR ####[facility] [place], [place] [phone] Fungal Cultureon 11-10-2017 Fungal Culture Culture Result - Rar e Yeast, not Cryptococcus neoformans --> ABNORMAL ALERT No other fungus found. Critically abnormal [facility] Comment on above: Performed By: #### F CUL ####[facility] [address] [place], [place] [phone] Fungal Smearon 11-10-2017 Fungal Smear Smear Result - No fu ngus seen. Normal [facility] Comment on above: Performed By: #### F UNGSM ####[facility] [address] [place], [place] [phone] HISTORY PHYSICALon 8 HISTORY PHYSICAL HNO ID: [id number] thor: Yousuf Matias: Pulmonary DiseaseAuthor Type: PhysicianType: HANDPFiled: 11/10/2017 12:29 PMNote Text:PROCEDURAL SEDATION HISTORY AND PHYSICAL EXAMSERVICE DATE: 11/10/2017SERVICE TIME: 11:30 AMSubjectiveHPI: This is a 62 year old male who presents with chronic cough, recurrentchest infections.Recently seen by local ENT, Dr. Eli, and treated with course of oralantibiotic RX, without change in cough.Recent IgE, eosinophil counts both normal, and RAST Otis panelnegative.Has held Plavix and aspirin for 5 days.PAST ANESTHESIA HISTORY: No history of adverse eventPAST MEDICAL HISTORYDiagnosis Date- Anxiety- Asthma childhood- CAD (coronary artery disease) s/p SHANIQUA to LAD, seeing Dr. Llanos- Depression- Diaphragmatic hernia without mention of obstruction or gangrene- Dyslipidemia- Dysphagia- Dyspnea With wheezing. Spirometry w/o obstruction 02/01 and 06/03. Dr. Jewell08/2017. Has seen Dr. Pearl- Esophagitis, unspecified- GERD (gastroesophageal reflux disease)- History of CVA (cerebrovascular accident) 06/20/2014 mild- Obesity (BMI 30.0-34.9)- LESLY (obstructive sleep apnea) Consistently compliant with CPAP.- PFO (patent foramen ovale)- Prostate cancer (HCC) 2012 s/p prostatectomy, [place]ST SURGICAL HISTORYProcedure Laterality Date- EGD W/O OR W/BRUSH/WASH 05/01/2007 EGD- EGD W/O OR W/BRUSH/WASH 03/21/2013 [facility] EGD- PAST SURGICAL HISTORY OF submandibular gland removed- PAST SURGICAL HISTORY OF 10/31/14 Robotic Prostatectomy- PAST SURGICAL HISTORY OF 04/2017 SHANIQUA to LADPrior to Admission medications as of 11/10/17 1221Medication Sig Last Dose Takingsertraline (ZOLOFT) 50 mg tablet Take 1 tablet by mouth once daily.11/10/2017 at 0730 Yesbudesonide-formoterol (SYMBICORT) 160-4.5 mcg/actuation inhaler Inhale 2Puffs as instructed twice daily. Unknown at Unknown time Yesfluticasone (FLONASE) 50 mcg/actuation nasal spray Use 2 Sprays in eachnostril once daily. Rinse mouth after use. 11/09/2017 at Unknown time Yeslosartan (COZAAR) 25 mg tablet Take 1 tablet by mouth once daily.11/09/2017 at Unknown time Yesmontelukast (SINGULAIR) 10 mg tablet Take 1 tablet by mouth daily atbedtime. 11/09/2017 at Unknown time YesNITROGLYCERIN SUBLINGUAL Dissolve under the tongue as needed. Unknown atUnknown time YesCPAP 11/09/2017 at Unknown time Yesclopidogrel (PLAVIX) 75 mg tablet Take 1 tablet by mouth once daily.11/04/2017 Yesatorvastatin (LIPITOR) 20 mg tablet TAKE 1 TABLET DAILY 11/09/2017 atUnknown time YesAlbuterol Sulfate 0.63 mg/3 mL nebulizer solution Inhale contents of 1vial in nebulizer every 4 hours as needed for wheezing Unknown at Unknowntime Yespantoprazole DR (PROTONIX) 20 mg tablet TAKE 1 TABLET DAILY BEFOREBREAKFAST. TAKE ON AN EMPTYSTOMACH, 1/2 HOUR BEFORE A MEAL. 11/09/2017 atUnknown time Yesalbuterol HFA (VENTOLIN HFA) 90 mcg/actuation inhaler Inhale 2 Puffs asinstructed every 4 hours as needed. Unknown at Unknown time Yesmetoprolol succinate ER (TOPROL XL) 25 mg 24 hr tablet Take 1 tablet bymouth once daily. 11/09/2017 at Unknown time Yesaspirin 81 mg chewable tablet Take 81 mg by mouth once daily. 11/04/2017YeMorris n Reactions- Parafopedro Palomo Dsc [*ObjectivePHYSICAL EXAM: GENERAL: Obese, No Distress, Cooperative, SmilingSKIN: Skin color, texture, turgor normal. No rashes or lesions.EYES: EOMIOROPHARYNX: Lips, mucosa, and tongue normal. Teeth and gums normal.Oropharynx normal.ABDOMEN: Abdomen soft, non-tender, BS normal, No masses or organomegalyEXTREMITIES: Extremities normal, no deformities, edema, clubbing or skindiscoloration. Good capillary refill.AIRWAY: Airway Visualization of Uvula: YesMouth opening greater than 2 fingerbreadths: YesNeck Full Range of Motion: YesLUNGS: Lungs clear to auscultation, Good diaphragmatic excursionCARDIAC: Normal S1 and S2; no rubs, murmurs, or gallopsAssessment/PlanASA Class: ASA Class:: Patient with mild systemic diseaseActive Problems: * No active hospital problems. *Resolved Problems: * No resolved hospital problems. *Provisional Diagnosis/Treatment Plan: Flexible bronchoscopy with bronchialwashing and possible biopsy.SEDATION GOAL: ModerateSIGNATURE: Yousuf Jewell MD PATIENT NAME: Maci AndersonmanDATE: November 10, 2017 : 12:22 PM PAGER: [phone] Normal [facility] NURSING PROGon 11-10-2017 NURSING PROG HNO ID: [id number] thor: Lynn Workman RNService: NursingAuthor Type: Registered NurseType: Nursing Progress NoteFiled: 11/10/2017 2:04 PMNote Text: Nursing Progress NotePatient Name: Maci HowardMRN: [id number] Location: ME Endo/ME Endo pt awake and talking to at this time. Denies pain.This note was completed by: Lynn Workman, [id number] pt had sm sips H2O, managed fluids well, VSS. [facility] OPERATIVE NOon 11-10-2017 OPERATIVE NO HNO ID: [id number] thor: Yousuf Matias: Pulmonary DiseaseAuthor Type: PhysicianType: Operative ReportFiled: 11/10/2017 1:13 PMNote Text:11/10/2017Maci [id number] bronchoscopy with endobronchial biopsy of the right lower lobe ofthe lung, andbronchial washing of the tracheobronchial tree.Pre-procedure Dx: Chronic coughPost-procedure Dx: Chronic cough.Medications: Oxygen, Xylocaine topical, Midazolam, Fentanyl.Findings: No masses, tumors, foreign bodies. Moderate thin non-purulentsecretions diffusely.Generalized erythematous swollen bronchial mucosa.Accomplished without difficulty.Tolerated well.Complications: < 5mL blood loss. No chest pain. Transient hypoxemiaassociated with snoring, relieved with chin lift/jaw thrust.Specimens: Washing for eosinophil smear and microbiology. Biopsy RLL forsurgical pathology.Full note in Provation.Yousuf Jewell MD, [facility] Building [address] [address]V: [phone]: [phone] [facility] PROCEDUREon 11-10-2017 PROCEDURE HNO ID: [id number] thor: Yousuf Matias: Pulmonary DiseaseAuthor Type: PhysicianType: ProceduresFiled: 11/10/2017 1:14 PMNote Text:11/10/2017Maci [id number] bronchoscopy with endobronchial biopsy of the right lower lobe ofthe lung, andbronchial washing of the tracheobronchial tree.Pre-procedure Dx: Chronic coughPost-procedure Dx: Chronic cough.Medications: Oxygen, Xylocaine topical, Midazolam, Fentanyl.Findings: No masses, tumors, foreign bodies. Moderate thin non-purulentsecretions diffusely.Generalized erythematous swollen bronchial mucosa.Accomplished without difficulty.Tolerated well.Complications: < 5mL blood loss. No chest pain. Transient hypoxemiaassociated with snoring, relieved with chin lift/jaw thrust.Specimens: Washing for eosinophil smear and microbiology. Biopsy RLL forsurgical pathology.Full note in Provation.Yousuf Jewell MD, [facility] [address] [address]S: [phone]: [phone] [facility] PT EDon 11-10-2017 PT ED HNO ID: [id number] thor: Rafael (Rn) Timothy RNService: NursingAuthor Type: Registered NurseType: Patient EducationFiled: 11/10/2017 2:45 PMNote Text:POST OP LEARNING RESPONSEINSTRUCTION PROVIDED TO: Patient and family memberMETHOD OF INSTRUCTION: Written instruction - handoutsVerbal instructionPATIENT / FAMILY RESPONSE: Information received as demonstrated byinterest and questionsFOLLOW-UP PLAN: Patient instructed to call with any further issuesSUPPLEMENTAL MATERIAL: NoneREFERRAL (RECOMMENDATION): NoneElectronically Signed By: Rafael Aguirre RN In [facility] PT ED HNO ID: [id number] thor: Bebe AndersonRn) Lilly, RNService: (none)Author Type: Registered NurseType: Patient EducationFiled: 11/10/2017 11:11 AMNote Text:PRE OP LEARNING ASSESSMENTPROCEDURE/SURGERY: BronchoscopyREADINESS TO LEARNCOGNITIVE ABILITY: Alert and orientedMOTIVATION TO LEARN: InterestedFAMILY SUPPORT: High - Very involved in pt carePATIENT LEARNS BEST BY: Verbal InstructionFACTORS AFFECTING LEARNING: NonePHYSICAL LIMITATIONS AFFECTING LEARNING: NoneElectronically Signed By: Bebe Carr RN [facility] Respiratory Cult/Stainon Respiratory Cult/Stain Smear Result - Few Gram positive cocci --> ABNORMAL ALERT Rare Polymorphonuclear leukocytes Rare Epithelial cells Culture Result - Moderate Normal respiratory christofer present Critically abnormal [facility] Comment on above: Performed By: #### R CULST ####[facility] [place], [place] [phone] SURGICAL PATHOLOGYon 018 SURGICAL PATHOLOGY [facility]: [id number] Physician: Yousuf Jewell M.D. FINAL DIAGNOSISLung, right lower lobe, endobronchial biopsy - Minimal chronic inflammationwith increased eosinophils, and moderate basement membrane thickening (Seecomment). SM/glw 11/11/2017 COMMENTThis biopsy consists of one fragment of alveolated lung parenchyma andseveral of bronchial wall. The alveolated lung is unremarkable. Thebronchial wall shows moderate basement membrane thickening and minimalchronic inflammation including a few lymphocytes and eosinophils (20 per 10high power weiner). No granulomas or malignant cells are identified. Thefindings are non-specific, but are consistent with asthma. Jorje Heck M.D.(Electronic Signature) SPECIME N SUBMITTEDA: RLL ENDOBRONCHIAL, BIOPSY CLINICAL DATACHRONIC COUGH.GROSS DESCRIPTIONA. Received in formalin are multiple pieces of horne-pink to red, soft tissueaggregating to 1.2 x 0.2 x 0.1 cm. Totally submitted in one cassette.Gross examination performed at [facility], [address] [place] [address] 11/10/2017 7:12:29 PMPatient ID #: [id number] of Report: 11/12/2017Date of Procedure: 11/10/2017Date of Receipt: 11/10/2017Submitted by: Yousuf Jewell M.D.Location: MEENDDiagnostic interpretation performed at [place] [address]. [facility] Comment on above: Performed By: #### P ATHS ####[facility] [address] [phone] HOSPon 10-06-2017 HOSP Patient:Woodard ry DMRN: Height:6' 1 (1.854 m)Weight:No patient weight recorded within the last 30 days.Outpatient Medications as of 11/10/17:sertraline (ZOLOFT) 50 mg tabletbudesonide-formoterol (SYMBICORT) 160-4.5 mcg/actuation inhalerfluticasone (FLONASE) 50 mcg/actuation nasal spraylosartan (COZAAR) 25 mg tabletmontelukast (SINGULAIR) 10 mg tabletNITROGLYCERIN SUBLINGUALCPAPclopidogrel (PLAVIX) 75 mg tabletatorvastatin (LIPITOR) 20 mg tabletAlbuterol Sulfate 0.63 mg/[address] (PROTONIX) 20 mg tabletalbuterol HFA (VENTOLIN HFA) 90 mcg/actuation inhalermetoprolol succinate ER (TOPROL XL) 25 mg 24 hr tabletaspirin 81 mg chewable tabletAdmission/Clinic Administered Medications as of 11/10/17:0.9% NaCl 2-10 mLProblem List:Dysphagia [787.2]Esophagitis, unspecified [K20.9]Diaphragmatic hernia without mention of obstruction or gangrene [K44.9]Family history of malignant neoplasm of prostate [Z80.42]Elevated prostate specific antigen (PSA) [R97.20]Other and unspecified hyperlipidemia [E78.5]Prostate cancer (HCC) [C61]HLD (hyperlipidemia) [E78.5]GERD (gastroesophageal reflux disease) [K21.9]Hypertensive cardiovascular disease [I11.9]Stroke (HCC) [I63.9]PFO (patent foramen ovale) [Q21.1]LESLY on CPAP [G47.33, Z99.89]Cerebrovascular accident (CVA) due to embolism of cerebral artery (HCC) [I63.40]History of CVA (cerebrovascular accident) [Z86.73]CAD (coronary artery disease) [I25.10]Cough [R05]SOB (shortness of breath) [R06.02]Wheezing [R06.2]Depression [F32.9]Allergies:Parafon Forte Dsc [Chlorzoxazone]Date Verified: 11/10/17Lab ValuesNo results within the last 30 days for the following basenames: K,HCTProgress Notes ([facility]):Aleida GarciaMANDIE, [facility] 10/16/2017 4:45 PM SignedPatient has been identified by name and date of : YesRX INSTRUCTIONS:Patient aware RX will be sent to pharmacy. No need to notify patient.Aleida Garcia PSREmelicarleen Marie Madisyn Fernandez 10/17/2017 8:40 AM SignedPatient has been identified by name and date of : YesPending Prescriptions Disp Refills SERTRALINE 25 MG TABLET Sig: Take 2 tablets by mouth once daily. KARY: NoRX INSTRUCTIONS:Patient aware RX will be sent to pharmacy. No need to notify patient.Last visit 09/26/17uture visit 12/10/17Last filled 09/10/17 No refills un sure of quantityAltagracia Snow MD 10/17/2017 9:05 AM SignedWill give 50 mg tablet instead. [facility] PROGRESSon 09-19-2017 PROGRESS HNO ID: [id number] thor: Yousuf Matias: (none)Author Type: PhysicianType: Progress NotesFiled: 09/19/2017 11:13 AMNote Text:Outside labs:IgE 70 (0-100) 05/12/2017MRSA PCR Negative 05/15/2017D-dimer 1.40 (0.27-0.49)INR 1.0WBC 10.3 06/24/2017Eos% 0.9% (0-5%)Hgb 16.1Hct 46.7Plt 206Na 140 06/24/2017K 3.8Cl 105CO2 24BUN 9Creat 0.99Ca 8.7BNP 12.3 (0-100) 05/14/2017RAST Negative 05/15/2017Negative: Dust mite, White elm, White oak, Bermuda grass, [place] bluegrass, Ragweed,Eng plantain, Cat dander, Dog epith, Mouse urine.I have received and reviewed the outside records noted above.Yousuf Jewell MD, [facility] Respiratory [place] [facility] Vital Signs Date Time Vital Sign Value Performing Clinician Faci lity 05-25-2024 08:08-0400 Body mass index (BMI) [Ratio] 30.05 kg/m2 Oliva Podlogar MAP EDITOR.BUSINESS SERVICES ANALYST Work Phone: [facility] 05-25-2024 08:08-0400 Body weight 103.3 kg Oliva Podlogar MAP EDITOR.BUSINESS SERVICES ANALYST Work Phone: [facility] 05-25-2024 08:08-0400 Diastolic blood pressure 88 mm[Hg] Oliva Podlogar MAP EDITOR.BUSINESS SERVICES ANALYST Work Phone: [facility] 05-25-2024 08:08-0400 Heart rate 59 /min Oliva Podlogar MAP EDITOR.BUSINESS SERVICES ANALYST Work Phone: [facility] 05-25-2024 08:08-0400 Respiratory rate 18 /min Oliva Podlogar MAP EDITOR.BUSINESS SERVICES ANALYST Work Phone: [facility] 05-25-2024 08:08-0400 SaO2% (BldA) [Mass fraction] 96 % Oliva Podlogar MAP EDITOR.BUSINESS SERVICES ANALYST Work Phone: [facility] 05-25-2024 08:08-0400 Systolic blood pressure 124 mm[Hg] Oliva Podlogar MAP EDITOR.BUSINESS SERVICES ANALYST Work Phone: [facility] 11-19-2023 08:36-0400 Body weight 106.14 kg Vilma Snow MD Work Phone: [facility] 11-19-2023 08:36-0400 Diastolic blood pressure 70 mm[Hg] Vilma Snow MD Work Phone: [facility] 11-19-2023 08:36-0400 Heart rate 74 /min Vilma Snow MD Work Phone: [facility] 11-19-2023 08:36-0400 Respiratory rate 16 /min Vilma Snow MD Work Phone: [facility] 11-19-2023 08:36-0400 Systolic blood pressure 124 mm[Hg] Vilma Snow MD Work Phone: [facility] 02-19-2023 08:30-0400 SaO2% (BldA) [Mass fraction] 95 % Vilma Snow MD Work Phone: [facility] 08-22-2022 09:39-0500 Body weight 107.41 kg Vilma Snow MD Work Phone: [facility] 08-22-2022 09:39-0500 Diastolic blood pressure 70 mm[Hg] Vilma Snwo MD Work Phone: [facility] 08-22-2022 09:39-0500 Heart rate 63 /min Vilma Snow MD Work Phone: [facility] 08-22-2022 09:39-0500 Respiratory rate 16 /min Vilma Snow MD Work Phone: [facility] 08-22-2022 09:39-0500 SaO2% (BldA) [Mass fraction] 97 % Vilma Snow MD Work Phone: [facility] 08-22-2022 09:39-0500 Systolic blood pressure 106 mm[Hg] Vilma Snow MD Work Phone: [facility] 08-16-2022 08:08-0500 Body height 185.4 cm Ovi Butcher PA-C Work Phone: [facility] 08-16-2022 08:08-0500 Body temperature 98.01 [degF] Ovi Butcher PA-C Work Phone: [facility] 08-16-2022 08:08-0500 Body weight 106.14 kg Ovi Butcher PA-C Work Phone: [facility] 08-16-2022 08:08-0500 Diastolic blood pressure 84 mm[Hg] Ovi Butcher PA-C Work Phone: [facility] 08-16-2022 08:08-0500 Heart rate 82 /min Ovi Butcher PA-C Work Phone: [facility] 08-16-2022 08:08-0500 Respiratory rate 20 /min Ovi Butcher PA-C Work Phone: [facility] 08-16-2022 08:08-0500 SaO2% (BldA) [Mass fraction] 97 % Ovi Butcher PA-C Work Phone: [facility] 08-16-2022 08:08-0500 Systolic blood pressure 110 mm[Hg] Ovi Butcher PA-C Work Phone: [facility] Encounters Encounter Date Encounter Type Care Provider Facility Start: 05-25-2024 End: 05-25-2024 Patient encounter procedure Oliva Wong APRN.BUSINESS SERVICES ANALYST Work Phone: [facility] [place] Comment on above: Essential hypertensi on (Primary Dx); Encounter for immunization; Obesity, Class I, BMI 30-34.9; Thrombocytopenia (HCC); Elevated alkaline phosphatase level; Hyperlipidemia, unspecified hyperlipidemia type; History of prostate cancer; Coronary artery disease involving chefornak heart without angina pectoris, unspecified vessel or lesion type; History of CVA (cerebrovascular accident); LESLY on CPAP; SOB (shortness of breath) Start: 05-25-2024 End: 05-25-2024 ambulatory VILMA SNOW Facility:[facility] Start: 05-24-2024 End: 05-24-2024 ambulatory VILMA SNOW Facility:[facility] Start: 03-02-2024 Refill Whit marcum APRN.CNP Work Phone: [facility] [place] Comment on above: Refill Request Start: 01-28-2024 Telephone encounter Elmo Snow MD Work Phone: [facility] [place] Comment on above: Results Start: 01-26-2024 End: 01-26-2024 ambulatory VILMA SNOW Facility:[facility] Start: 12-24-2023 Telephone encounter Elmo Snow MD Work Phone: [facility] [place] Comment on above: Results Start: 12-20-2023 End: 12-20-2023 ambulatory VILMA SNOW Facility:[facility] Start: 11-20-2023 Telephone encounter Elmo Snow MD Work Phone: [facility] [place] Comment on above: Results Start: 11-19-2023 Telephone encounter Ovi talbot PA-C Work Phone: Urology Comment on above: PSA question Start: 11-19-2023 End: 11-19-2023 ambulatory VILMA SNOW Facility:[facility] Start: 11-19-2023 End: 11-19-2023 Patient encounter procedure Vilma Snow MD Work Phone: [facility] [place] Comment on above: Diarrhea, unspecifie d type (Primary Dx); Essential hypertension; Hyperlipidemia, unspecified hyperlipidemia type; Coronary artery disease involving chefornak heart without angina pectoris, unspecified vessel or lesion type; History of CVA (cerebrovascular accident); LESLY on CPAP; Screening for colon cancer; History of prostate cancer; S/P prostatectomy; Severe persistent asthma, uncomplicated; Chronic bronchitis, unspecified chronic bronchitis type (HCC); Gastroesophageal reflux disease, unspecified whether esophagitis present Start: 11-18-2023 Refill Whit marcum APRN.BUSINESS SERVICES ANALYST Work Phone: [facility] [place] Comment on above: Refill Request Start: 07-03-2023 Telephone encounter Elmo Snow MD Work Phone: [facility] Comment on above: Results Start: 07-02-2023 End: 07-02-2023 ambulatory VILMA SNOW Facility:[facility] Start: 06-26-2023 Refill Oliva Wong APRN.BUSINESS SERVICES ANALYST Work Phone: [facility] [place] Comment on above: Refill Request Start: 02-20-2023 Telephone encounter Elmo Snow MD Work Phone: [facility] [place] Comment on above: Results Start: 02-19-2023 End: 02-19-2023 Patient encounter procedure Vilma Snow MD Work Phone: [facility] [place] Comment on above: Severe persistent as thma, uncomplicated (Primary Dx); SOB (shortness of breath); Coronary artery disease involving chefornak heart without angina pectoris, unspecified vessel or lesion type; Essential hypertension; Hyperlipidemia, unspecified hyperlipidemia type; LESLY on CPAP; History of CVA (cerebrovascular accident); Elevated prostate specific antigen (PSA); Sensation of fullness in both ears; S/P prostatectomy; History of prostate cancer; Chronic bronchitis, unspecified chronic bronchitis type (HCC) Start: 12-16-2022 Refill Vilma Snow MD Work Phone: [facility] Comment on above: Refill Request Start: 08-22-2022 End: 08-22-2022 Patient encounter procedure Vilma Snow MD Work Phone: [facility] Comment on above: Essential hypertensi on (Primary Dx); Coronary artery disease involving chefornak heart without angina pectoris, unspecified vessel or lesion type; SOB (shortness of breath); Severe persistent asthma, uncomplicated; LESLY on CPAP; History of CVA (cerebrovascular accident); Prostate cancer (HCC); Elevated prostate specific antigen (PSA); Gastroesophageal reflux disease, unspecified whether esophagitis present; Screening for colon cancer; Anxiety with depression Start: 08-21-2022 Refill Vilma Snow MD Work Phone: [facility] Comment on above: Refill Request; Refi ll Request Start: 08-16-2022 End: 08-16-2022 Patient encounter procedure Ovi Butcher PA-C Work Phone: Urology Comment on above: Personal history of prostate cancer (Primary Dx) Start: 12-25-2021 Refill Vilma Snow MD Work Phone: [facility] Comment on above: Refill Request Start: 11-13-2021 Refill Vilma Snow MD Work Phone: [facility] Comment on above: Refill Request Start: 11-10-2017 End: 11-10-2017 Ambulatory [facility] Start: 09-17-2017 Ambulatory [facility] Procedures Date Procedure Procedure Detail Performing Clinician Start: 05-25-2024 PFIZER-BIONTECH COVI D-19 VACCINE AGE 12+ YR (COMIRNATY) Oliva Wong APRN.CNP Work Phone: Start: 11-19-2023 Lipid 1996 panel - S patricia or Plasma Vilma Snow MD Work Phone: Start: 07-02-2023 Lipid 1996 panel - S patricia or Plasma Whit Hernandez MAP EDITOR.BUSINESS SERVICES ANALYST Work Phone: Start: 02-19-2023 H/O: surgery S/P prostatectomy Aram Snow MD Work Phone: Start: 02-19-2023 Lipid 1996 panel - S patricia or Plasma Oliva Wong MAP EDITOR.BUSINESS SERVICES ANALYST Work Phone: Start: 08-16-2022 Urnls dip stick/tabl et rgnt auto w/o microscopy Ovi Butcher PA-C Work Phone: Start: 02-02-2021 Adult depression screening assessment Vilma Snow MD Work Phone: H/O: surgery S/P prostatectomy Elmo Snow MD Work Phone: Plan of Treatment Date Care Activity Detail Author Start: 11-18-2028 Lipid panel Lipid Screening [facility] Start: 07-02-2028 Lipid panel Lipid Screening [facility] Start: 02-20-2028 Lipid 1996 panel - Serum or Plasma Lipid Screening [facility] Start: 02-20-2028 LIPID SCREEN LIPID SCREEN [facility] Start: 12-11-2027 Urine microalbumin profile [facility] Start: 10-14-2027 PROSTATE CANCER SCREENING DISCUSSION PROSTATE CANCER SCREENING DISCUSSION [facility] Start: 08-14-2027 PROSTATE CANCER SCREENING DISCUSSION PROSTATE CANCER SCREENING DISCUSSION [facility] Start: 05-24-2027 Diabetes Screening Diabetes Screenin g [facility] Start: 12-19-2026 Diabetes Screening Diabetes Screenin g [facility] Start: 11-18-2026 Diabetes Screening Diabetes Screenin g [facility] Start: 08-09-2026 PROSTATE CANCER SCREENING DISCUSSION PROSTATE CANCER SCREENING DISCUSSION [facility] Start: 02-19-2026 DIABETES SCREEN DIABETES SCREEN [facility] Start: 02-19-2026 Diabetes Screening Diabetes Screenin g [facility] Start: 02-02-2026 LIPID SCREEN LIPID SCREEN [facility] Start: 08-22-2025 DIABETES SCREEN DIABETES SCREEN [facility] Start: 05-25-2025 Annual PCP Team Team Lead payton Disease Visit Annual PCP Team Chronic Disease Visit [facility] Start: 11-23-2024 End: 11-23-2024 Patient encounter procedure 11/23/2024 8:40 AM EDT Office Visit Family [facility] [address] [place] [id number] Vilma Snow MD [address] [place] [id number] 6 month follow up Family [facility] Comment on above: 6 month follow up Start: 11-20-2024 Screening for malign ant neoplasm of colon [facility] Start: 11-18-2024 Annual PCP Team Team Lead payton Disease Visit Annual PCP Team Chronic Disease Visit [facility] Start: 11-18-2024 BP Controlled (<130/80) BP Controlle d (<130/80) [facility] Start: 11-18-2024 Hepatitis B surface antibody level LDL Cholesterol [facility] Start: 08-17-2024 Behavioral Health Screening Behavioral Health Screening [facility] Comment on above: Postponed from 08/18 (Declined at this time) Start: 08-17-2024 [facility] Comment on above: Postponed from 08/18 (Declined at this time) Start: 08-09-2024 DIABETES SCREEN DIABETES SCREEN [facility] Start: 07-02-2024 Hepatitis B surface antibody level LDL Cholesterol [facility] Start: 05-25-2024 End: 05-25-2024 Patient encounter procedure Family [facility] Comment on above: 6 mo follow up Start: 04-18-2024 Influenza vaccination Influenza Vacc ine (#1) [facility] Start: 02-20-2024 ANNUAL PCP TEAM WETLANDS TECHNICIAN [place] DISEASE VISIT ANNUAL PCP TEAM CHRONIC DISEASE VISIT [facility] Start: 02-20-2024 BP CONTROLLED (<130/80) BP CONTROLLE D (<130/80) [facility] Start: 02-20-2024 Hepatitis B surface antibody level LDL CHOLESTEROL [facility] Start: 01-24-2024 End: 04-24-2024 CBC W Ordered Manual Differential panel - Blood PATHOLOGIST INTERPRETATION WITH CBC AND DIFF Lab Routine Thrombocytopenia (HCC) Expected: 01/24/2024, Expires: 04/24/2024 [facility] Work Phone: Comment on above: Expected: 01/24/2024 , Expires: 04/24/2024 Start: 01-24-2024 End: 04-24-2024 Hepatitis C virus Ab [Presence] in Serum HEPATITIS C ANTIBODY IA WITH CONFIRMATION Lab Routine Thrombocytopenia (HCC) Expected: 01/24/2024, Expires: 04/24/2024 [facility] Comment on above: Expected: 01/24/2024 , Expires: 04/24/2024 Start: 01-24-2024 End: 04-24-2024 HIV 1+2 Ab [Presence] in Serum or Plasma by Immunoassay HIV 1/2 COMBO WITH REFLEX TO DIFFERENTIATION Lab Routine Thrombocytopenia (HCC) Expected: 01/24/2024, Expires: 04/24/2024 [facility] Comment on above: Expected: 01/24/2024 , Expires: 04/24/2024 Start: 12-20-2023 End: 03-20-2024 ALK PHOS ISOENZYM BL ALK PHOS ISOENZYM BL Lab Routine Elevated alkaline phosphatase level Expected: 12/20/2023, Expires: 03/20/2024 [facility] Work Phone: Comment on above: Expected: 12/20/2023 , Expires: 03/20/2024 Start: 12-20-2023 End: 03-20-2024 CBC W Auto Differential panel - Blood CBC + DIFF Lab Routine Thrombocytopenia (HCC) Expected: 12/20/2023, Expires: 03/20/2024 [facility] Work Phone: Comment on above: Expected: 12/20/2023 , Expires: 03/20/2024 Start: 12-20-2023 End: 03-20-2024 Comprehensive metabolic 2000 panel - Serum or Plasma COMP METABOLIC PANEL Lab Routine Elevated alkaline phosphatase level Expected: 12/20/2023, Expires: 03/20/2024 [facility] Work Phone: Comment on above: Expected: 12/20/2023 , Expires: 03/20/2024 Start: 12-20-2023 End: 03-20-2024 Gamma glutamyl transferase [Enzymatic activity/volume] in Serum or Plasma GGT BLD Lab Routine Elevated alkaline phosphatase level Expected: 12/20/2023, Expires: 03/20/2024 [facility] Work Phone: Comment on above: Expected: 12/20/2023 , Expires: 03/20/2024 Start: 10-03-2023 Covid-19 Vaccine () Covid-19 Vaccine () [facility] Start: 08-23-2023 COLORECTAL CANCER SCREENING COLORECTAL CANCER SCREENING [facility] Start: 08-23-2023 FECAL OCCULT BLOOD FECAL OCCULT BLOO D [facility] Start: 08-23-2023 Screening for malign ant neoplasm of colon [facility] Start: 08-22-2023 ANNUAL PCP TEAM WETLANDS TECHNICIAN [place] DISEASE VISIT ANNUAL PCP TEAM CHRONIC DISEASE VISIT [facility] Start: 08-22-2023 BP CONTROLLED (<130/80) BP CONTROLLE D (<130/80) [facility] Start: 08-22-2023 SHINGRIX VACCINE (1 of 2) SHINGRIX VACCINE (1 of 2) [facility] Comment on above: Postponed from 05/13 (Declined at this time) Start: 08-18-2023 Advance Directive Discussion Advance Directive Discussion [facility] Start: 08-18-2023 Depression Assessment Depression Ass essment [facility] Start: 05-23-2023 End: 07-23-2023 LIPID PANEL, NONFASTING LIPID PANEL, NONFASTING Lab Routine Hyperlipidemia, unspecified hyperlipidemia type Expected: 05/23/2023, Expires: 07/23/2023 [facility] Work Phone: Comment on above: Expected: 05/23/2023 , Expires: 07/23/2023 Start: 04-18-2023 Covid-19 Vaccine () Covid-19 Vaccine () [facility] Start: 04-18-2023 Influenza vaccination [facility] Start: 02-19-2023 End: 04-21-2023 Comprehensive metabolic 2000 panel - Serum or Plasma [facility] Work Phone: Comment on above: Expected: 02/19/2023 , Expires: 04/21/2023 Start: 02-19-2023 End: 04-21-2023 LIPID PANEL, NONFASTING [facility] Work Phone: Comment on above: Expected: 02/19/2023 , Expires: 04/21/2023 Start: 02-14-2023 Influenza vaccination INFLUENZA (#1) [facility] Comment on above: Postponed from 04/18 (Declined at this time) Start: 11-20-2022 End: 01-20-2023 LIPID PANEL, NONFASTING LIPID PANEL, NONFASTING Lab Routine Coronary artery disease involving chefornak heart without angina pectoris, unspecified vessel or lesion type Expected: 11/20/2022, Expires: 01/20/2023 [facility] Work Phone: Comment on above: Expected: 11/20/2022 , Expires: 01/20/2023 Start: 10-15-2022 End: 12-15-2022 Prostate specific Ag [Mass/volume] in Serum or Plasma PSA/PROSTSPECAG DIAG Lab Routine Personal history of prostate cancer Expected: 10/15/2022 (Approximate), Expires: 12/15/2022 [facility] Work Phone: Comment on above: Expected: 10/15/2022 (Approximate), Expires: 12/15/2022 Start: 08-18-2022 ADVANCE DIRECTIVE DISCUSSION ADVANCE DIRECTIVE DISCUSSION [facility] Start: 08-18-2022 DEPRESSION ASSESSMENT DEPRESSION ASS ESSMENT [facility] Start: 08-09-2022 ANNUAL PCP TEAM WETLANDS TECHNICIAN [place] DISEASE VISIT ANNUAL PCP TEAM CHRONIC DISEASE VISIT [facility] Start: 04-18-2022 Influenza vaccination INFLUENZA (#1) [facility] Start: 02-02-2022 Adult depression screening assessment DEPRESSION SCREENING [facility] Start: 02-02-2022 Hepatitis B surface antibody level LDL CHOLESTEROL [facility] Start: 09-29-2021 COVID-19 VACCINE (4 - Booster for Pfizer series) COVID-19 VACCINE (4 - Booster for Pfizer series) [facility] Start: 08-18-2021 ADVANCE DIRECTIVE DISCUSSION ADVANCE DIRECTIVE DISCUSSION [facility] Start: 06-24-2020 COLORECTAL CANCER SCREENING COLORECTAL CANCER SCREENING [facility] Start: 06-24-2020 FECAL OCCULT BLOOD FECAL OCCULT BLOO D [facility] Start: 2014 RSV Vaccine (1 - 1-d ose 60+ series) RSV Vaccine (1 - 1-dose 60+ series) [facility] Start: 2014 RSV Vaccine (1 - Ris k 60-74 years 1-dose series) RSV Vaccine (1 - Risk 60-74 years 1-dose series) [facility] Start: 2004 SHINGRIX VACCINE (1 of 2) SHINGRIX VACCINE (1 of 2) [facility] Start: 1999 COLOGUARD (FIT-DNA) COLOGUARD (FIT-D NA) [facility] Start: 1999 Colonoscopy COLONOSCOPY [facility] Start: [address] COLONOGRAPHY [facility] Start: 1999 Screening for malign ant neoplasm of colon [facility] Start: 1999 SIGMOIDOSCOPY SIGMOIDOSCOPY [facility] Start: 1972 Anxiety Screening Anxiety Screening [facility] Start: 1972 BP CONTROLLED (<130/80) BP CONTROLLE D (<130/80) [facility] Start: 1972 Depression Screening Depression Scre ening [facility] Hemoglobin.gastroint est inal.lower [Presence] in Stool by Immunoassay FECAL OCCULT BLOOD TEST Lab Routine Screening for colon cancer 08/23/2022 6:18 AM EST [facility] Work Phone: Hemoglobin.gastroint est inal.lower [Presence] in Stool by Immunoassay FECAL OCCULT BLOOD TEST Lab Routine Screening for colon cancer Ordered: 11/19/2023 [facility] Work Phone: Comment on above: Ordered: 11/19/2023 POST VOID RESIDUAL POST VOID RES IDUAL Procedures Routine Personal history of prostate cancer Ordered: 08/16/2022 [facility] Work Phone: Comment on above: Ordered: 08/16/2022 [facility] Immunizations Immunization Date Immunization Notes Care Provider Miguelangel alvarado 05-25-2024 COVID-19 vaccine, ag e 12+ yr ([employer]-[place] COMIRNAT) Oliva Wong MAP EDITOR.BUSINESS SERVICES ANALYST Work Phone: [facility] 05-25-2024 influenza, high dose seasonal, preservative-free Oliva Lcaylogjasmina MAP EDITOR.BUSINESS SERVICES ANALYST Work Phone: [facility] 06-02-2023 influenza virus vaccine, unspecified formulation Whit Hernandez MAP EDITOR.BUSINESS SERVICES ANALYST Work Phone: [facility] 05-18-2021 influenza, high dose seasonal, preservative-free Vilma Snow MD Work Phone: [facility] 05-18-2021 influenza virus vaccine, unspecified formulation Oliva Lacylogjasmina MAP EDITOR.BUSINESS SERVICES ANALYST Work Phone: [facility] 10-24-2020 COVID-19 vaccine, ag e 12+ yr (PFIZER-BIONTECH - PURPLE TOP) Vilma Snow MD Work Phone: [facility] 10-04-2020 COVID-19 vaccine, ag e 12+ yr (PFIZER-BIONTECH - PURPLE TOP) Vilma Snow MD Work Phone: [facility] 06-21-2019 influenza, high dose seasonal, preservative-free Vilma Snow MD Work Phone: [facility] 06-21-2019 pneumococcal polysaccharide vaccine, 23 valent Vilma Snow MD Work Phone: [facility] 06-12-2018 influenza, injectabl e, quadrivalent, contains preservative Vilma Snow MD Work Phone: [facility] 12-10-2017 tetanus and diphther ia toxoids, adsorbed, preservative free, for adult use (5 Lf of tetanus toxoid and 2 Lf of diphtheria toxoid) Vilma Snow MD Work Phone: [facility] 09-26-2017 pneumococcal conjuga te vaccine, 13 valent Vilma Snow MD Work Phone: [facility] 05-31-2016 influenza, injectabl e, quadrivalent, contains preservative Vilma Snow MD Work Phone: [facility] 07-25-2015 influenza, injectabl e, quadrivalent, contains preservative Vilma Snow MD Work Phone: [facility] 05-27-2014 influenza, seasonal, injectable Vilma Snow MD Work Phone: [facility] 03-03-2007 tetanus toxoid, redu greg diphtheria toxoid, and acellular pertussis vaccine, adsorbed Vilma Snow MD Work Phone: [facility] Work Phone: 11-20-1993 diphtheria and tetan us toxoids, adsorbed for pediatric use Vilma Snow MD Work Phone: [facility] Work Phone: Payers Date Payer Category Payer Medicare [employer] MEDICARE A ETNA MEDICARE PPO [id number] 2021-Present [phone] [address] [place] [address] PPO [id number] 2021 Medicare [id number] 2021 Medicare [employer] MEDICARE A ETNA MEDICARE PPO [id number] 2021-Present [phone] [address] [place] [address] PPO [id number] Social History Date Type Detail Facility Start: 03-23-2012 End: 05-25-2024 Tobacco smoking status NHIS Ex-smoker [facility] Work Phone: Start: 08-18-1969 End: 08-18-1989 History of tobacco use Current smoker [facility] Work Phone: Start: 08-18-1969 End: 08-18-1989 History of tobacco use Cigarette Smoker [facility] Work Phone: Start: 03-23-2012 End: 02-19-2023 Cigarettes smoked current (pack per day) - Reported 1 [facility] Start: 03-23-2012 End: 05-25-2024 Tobacco use and exposure Former smokeless tobacco user [facility] Work Phone: End: 01-16-2017 History of tobacco use Snuff User [facility] Work Phone: Start: 08-14-2021 End: 05-25-2024 Alcohol intake Current drinker of alcohol (finding) [facility] Start: 12-14-2019 History SDOH Alcohol Frequency 2 [facility] Start: 12-14-2019 History SDOH Alcohol Std Drinks 1 [facility] Start: 03-23-2012 History SDOH Alcohol Comment rare-beer [facility] Start: 12-14-2019 History SDOH Social Connections Phone 5 [facility] Start: 12-14-2019 History SDOH Social Connections Get Together 4 [facility] Start: 12-14-2019 History SDOH Social Connections Sikhism 3 [facility] Start: 12-14-2019 Education 12 [facility] Start: 1955 Sex Assigned At Male C [facility] Start: 12-14-2019 End: 02-19-2023 Social connection and isolation panel [facility] Do you belong to any clubs or organizations such as confucianist groups, unions, fraternal or athletic groups, or school groups? Yes [facility] Are you now , , , , never or living with a partner? [facility] How often to you hav e a drink containing alcohol? Monthly or less [facility] How many standard dr inks containing alcohol do you have on a typical day? 1 or 2 [facility] How often do you hav e 6 or more drinks on 1 occasion? Never [facility] How hard is it for y ou to pay for the very basics like food, housing, medical care, and heating Not hard at all [facility] (I/We) worried [place] (my/our) food would run out before (I/we) got money to buy more. Never true [facility] Start: 02-02-2021 Gender identity Identifies as male gender (finding) [facility] Clinical Notes 09-08-2017 to 05-25-2024 Oliva Wong APRN.ANALY - 05/25/2024 8:21 AM EDTTelephone Encounter - Viridiana Cruz LPN - 03/02/2024 10:35 AM EDTTelephone Encounter - Viridiana Cruz, LURE MAKER - 03/02/2024 10:35 AM EDT Note Date & Type Note Facility 05-25-2024 Note HNO ID: [id number] Author: OLIVA WONG APRN.BUSINESS SERVICES ANALYST Service: ? Author Type: Nurse Practitioner Type: Progress Notes Filed: 05/25/2024 10:38 Note Text: 05/25/2024 Patient presents with: F/U 6 months SUBJECTIVE: This is a 69 year old that is here today for Above Complaints. Since last office visit has been in good health without ER visits or hospitalizations. HTN: Patient is compliant with meds Yes Monitors bp at home: No. Denies side effects: Yes. Chest pain: No. Dyspnea: Yes- per patient has COPD Edema: only when he rides long distances in a car. Palpitations: No. Syncope: No. Headache: No. Dizziness: at times CAD s/p SHANIQUA to LAD: followed with [facility], cardiology on 04/13/2024. No medication changes made at that time. ECHO completed and EF: 55%. Per patient wore a heart monitor and he is skipping some beats. Will be having repeat heart monitor over night again. Reports he will be doing this next week Dyspnea/LESLY: following with [facility] pulmnology with last visit on 2024. No medication changes at that time. Uses CPAP as ordered Hx of prostate cancer: Last PSA 6 months ago and stable. No urinary issues Hx of CVA: taking Plavix as prescribed. Denies visual changes, headaches, lightheadedness, dizziness, slurred speech, facial drooping, extremity numbness, tingling or weakness Hx of Thrombocytopenia: denies bleeding symptoms PAST MEDICAL HISTORY Diagnosis Date Anxiety Asthma Childhood. 10/2017 bronchoscopy/biopsy with inflammation, eosinophils. CAD (coronary artery disease) s/p SHANIQUA to LAD, seeing Dr. Llanos Depression Diaphragmatic hernia without mention of obstruction or gangrene Dyslipidemia Dysphagia Dyspnea With wheezing. Spirometry w/o obstruction 02/01 and 06/03. Has seen Dr. Pearl Esophagitis, unspecified Essential hypertension GERD (gastroesophageal reflux disease) History of CVA (cerebrovascular accident) 06/20/2014 mild History of prostate cancer Obesity (BMI 30.0-34.9) LESLY (obstructive sleep apnea) Consistently compliant with CPAP. PFO (patent foramen ovale) Prostate cancer (HCC) 2013 s/p prostatectomy, [place] S/P prostatectomy ALLERGIES Parafon Forte Dsc [Chlorzoxazone] MEDICATIONS Current Outpatient Medications Medication Sig losartan (COZAAR) 25 mg tablet Take 0.5 tablets by mouth once daily. pantoprazole DR (PROTONIX) 20 mg tablet TAKE 1 TABLET DAILY BEFORE BREAKFAST. TAKE ON AN EMPTYSTOMACH, 1/2 HOUR BEFORE A MEAL. atorvastatin (LIPITOR) 80 mg tablet Take 1 tablet by mouth once daily. clopidogrel (PLAVIX) 75 mg tablet Take 1 tablet by mouth once daily. albuterol sulfate (PROAIR HFA INHALATION) Inhale as instructed as needed. NUCALA 100 mg/mL injection Inject 100 mg subcutaneously every 4 weeks. fluticasone (FLONASE) 50 mcg/actuation nasal spray Use 2 Sprays in each nostril once daily. Rinse mouth after use. montelukast (SINGULAIR) 10 mg tablet Take 1 tablet by mouth daily at bedtime. NITROGLYCERIN SUBLINGUAL Dissolve under the tongue as needed. CPAP albuterol HFA (VENTOLIN HFA) 90 mcg/actuation inhaler Inhale 2 Puffs as instructed every 4 hours as needed. aspirin 81 mg chewable tablet Take 81 mg by mouth once daily. No current facility-administered medications for this visit. Medications and allergies reviewed by this provider. SOCIAL HISTORY Social History Tobacco Use Smoking status: Former Current packs/day: 0.00 Average packs/day: 1 pack/day for 20.0 years (20.0 ttl pk-yrs) Types: Cigarettes Start date: 08/18/1969 Quit date: 08/18/1989 Years since quittin.7 Smokeless tobacco: Former Types: Snuff Quit date: 01/16/2017 Vaping Use Vaping status: Never Used Substance Use Topics Alcohol use: Yes Alcohol/week: 1.0 standard drink of alcohol Types: 1 Cans of Beer (12oz) per week Comment: rare-beer Drug use: No REVIEW OF SYSTEMS All other reviewed and negative other than HPI. OBJECTIVE: BP 124/88 Pulse (!) 59 Resp 18 Wt 103.3 kg (227 lb 11.8 oz) SpO2 96% BMI (P) 30.05 kg/m? . Vital signs reviewed by this provider. APPEARANCE Well appearing, alert, in no acute distress, well-hydrated, well nourished. EYES conjunctiva and sclera normal. NECK Supple, no adenopathy; thyroid symmetric, normal size, no bruits HEART RRR with normal S1 and S2, no murmurs, no gallops, no JVD appreciated LUNG clear to auscultation. No wheezes, rhonchi or rales EXTREMITIES Extremities normal, No deformities, No skin discoloration, and No edema SKIN Skin color, texture, turgor normal, no suspicious rashes or lesions to exposed skin Latest Ref Rng 05/24/2024 WBC 3.70 - 11.00 k/uL 5.77 RBC 4.20 - 6.00 m/uL 4.91 Hemoglobin 13.0 - 17.0 g/dL 15.9 Hematocrit 39.0 - 51.0 % 45.9 MCV 80.0 - 100.0 fL 93.5 MCH 26.0 - 34.0 pg 32.4 MCHC 30.5 - 36.0 g/dL 34.6 RDW-CV 11.5 - 15.0 % 13.2 Platelet Count 150 - 400 k/uL 131 (L) MPV 9.0 - 12.7 fL 8.5 (L) Neut% % 51.6 Abs Neut (ANC) 1.45 (more content not included)... [facility] 05-25-2024 History of Presen t illness Narrative 05/25/2024 Patient presents with: F/U 6 months SUBJECTIVE: This is a 69 year old that is here today for Above Complaints. Since last office visit has been in good health without ER visits or hospitalizations. HTN: Patient is compliant with meds Yes Monitors bp at home: No. Denies side effects: Yes. Chest pain: No. Dyspnea: Yes- per patient has COPD Edema: only when he rides long distances in a car. Palpitations: No. Syncope: No. Headache: No. Dizziness: at times CAD s/p SHANIQUA to LAD: followed with [facility], cardiology on 04/13/2024. No medication changes made at that time. ECHO completed and EF: 55%. Per patient wore a heart monitor and he is skipping some beats. Will be having repeat heart monitor over night again. Reports he will be doing this next week Dyspnea/LESLY: following with [facility] pulmnology with last visit on 2024. No medication changes at that time. Uses CPAP as ordered Hx of prostate cancer: Last PSA 6 months ago and stable. No urinary issues Hx of CVA: taking Plavix as prescribed. Denies visual changes, headaches, lightheadedness, dizziness, slurred speech, facial drooping, extremity numbness, tingling or weakness Hx of Thrombocytopenia: denies bleeding symptoms PAST MEDICAL HISTORY Diagnosis Date Anxiety Asthma Childhood. 10/2017 bronchoscopy/biopsy with inflammation, eosinophils. CAD (coronary artery disease) s/p SHANIQUA to LAD, seeing Dr. Llanos Depression Diaphragmatic hernia without mention of obstruction or gangrene Dyslipidemia Dysphagia Dyspnea With wheezing. Spirometry w/o obstruction 02/01 and 06/03. Has seen Dr. Pearl Esophagitis, unspecified Essential hypertension GERD (gastroesophageal reflux disease) History of CVA (cerebrovascular accident) 06/20/2014 mild History of prostate cancer Obesity (BMI 30.0-34.9) LESLY (obstructive sleep apnea) Consistently compliant with CPAP. PFO (patent foramen ovale) Prostate cancer (HCC) 2013 s/p prostatectomy, [place] S/P prostatectomy ALLERGIES Parafon Forte Dsc [Chlorzoxazone] MEDICATIONS Current Outpatient Medications Medication Sig losartan (COZAAR) 25 mg tablet Take 0.5 tablets by mouth once daily. pantoprazole DR (PROTONIX) 20 mg tablet TAKE 1 TABLET DAILY BEFORE BREAKFAST. TAKE ON AN EMPTYSTOMACH, 1/2 HOUR BEFORE A MEAL. atorvastatin (LIPITOR) 80 mg tablet Take 1 tablet by mouth once daily. clopidogrel (PLAVIX) 75 mg tablet Take 1 tablet by mouth once daily. albuterol sulfate (PROAIR HFA INHALATION) Inhale as instructed as needed. NUCALA 100 mg/mL injection Inject 100 mg subcutaneously every 4 weeks. fluticasone (FLONASE) 50 mcg/actuation nasal spray Use 2 Sprays in each nostril once daily. Rinse mouth after use. montelukast (SINGULAIR) 10 mg tablet Take 1 tablet by mouth daily at bedtime. NITROGLYCERIN SUBLINGUAL Dissolve under the tongue as needed. CPAP albuterol HFA (VENTOLIN HFA) 90 mcg/actuation inhaler Inhale 2 Puffs as instructed every 4 hours as needed. aspirin 81 mg chewable tablet Take 81 mg by mouth once daily. No current facility-administered medications for this visit. Medications and allergies reviewed by this provider. SOCIAL HISTORY Social History Tobacco Use Smoking status: Former Current packs/day: 0.00 Average packs/day: 1 pack/day for 20.0 years (20.0 ttl pk-yrs) Types: Cigarettes Start date: 08/18/1969 Quit date: 08/18/1989 Years since quittin.7 Smokeless tobacco: Former Types: Snuff Quit date: 01/16/2017 Vaping Use Vaping status: Never Used Substance Use Topics Alcohol use: Yes Alcohol/week: 1.0 standard drink of alcohol Types: 1 Cans of Beer (12oz) per week Comment: rare-beer Drug use: No REVIEW OF SYSTEMS All other reviewed and negative other than HPI. OBJECTIVE: BP 124/88 Pulse (!) 59 Resp 18 Wt 103.3 kg (227 lb 11.8 oz) SpO2 96% BMI (P) 30.05 kg/m . Vital signs reviewed by this provider. APPEARANCE Well appearing, alert, in no acute distress, well-hydrated, well nourished. EYES conjunctiva and sclera normal. NECK Supple, no adenopathy; thyroid symmetric, normal size, no bruits HEART RRR with normal S1 and S2, no murmurs, no gallops, no JVD appreciated LUNG clear to auscultation. No wheezes, rhonchi or rales EXTREMITIES Extremities normal, No deformities, No skin discoloration, and No edema SKIN Skin color, texture, turgor normal, no suspicious rashes or lesions to exposed skin Latest Ref [facility] 05/24/2024 WBC 3.70 - 11.00 k/uL 5.77 RBC 4.20 - 6.00 m/uL 4.91 Hemoglobin 13.0 - 17.0 g/dL 15.9 Hematocrit 39.0 - 51.0 % 45.9 MCV 80.0 - 100.0 fL 93.5 MCH 26.0 - 34.0 pg 32.4 MCHC 30.5 - 36.0 g/dL 34.6 RDW-CV 11.5 - 15.0 % 13.2 Platelet Count 150 - 400 k/uL 131 (L) MPV 9.0 - 12.7 fL 8.5 (L) Neut% % 51.6 Abs Neut (ANC) 1.45 - 7.50 k/uL 2.98 Lymph% % 34.5 Abs Lymph 1.00 - 4.00 k/uL 1.99 [place]% % 11.3 Abs [place] <0.87 k/uL 0.65 Eosin% % 0.9 Abs Eosin <0.46 k/uL 0.05 Baso% % 0.7 Abs Baso <0.11 k/uL 0.04 Immature Gran % % 1.0 IMMATURE GRANS (ABS) <0.10 k/uL 0.06 NRBC /100 WBC 0.0 Absolute nRBC <0.01 k/uL <0.01 DTYPE Auto Protein, Total 6.3 - 8.0 g/dL 6.8 Albumin 3.9 - 4.9 g/dL 4.0 Calcium 8.5 - 10.2 mg/dL 9.1 Bilirubin, Total 0.2 - 1.3 mg/dL 0.8 Alkaline Phosphatase 38 - 113 U/L 145 (H) AST 14 - 40 U/L 20 ALT 10 - 54 U/L 21 Glucose 74 - 99 mg/dL 108 (H) BUN 9 - 24 mg/dL 23 Creatinine 0.73 - 1.22 mg/dL 0.88 Sodium 136 - 144 mmol/L 138 Potassium 3.7 - 5.1 mmol/L 3.9 Chloride 98 - 107 mmol/L 106 CO2 22 - 30 mmol/L 22 Anion Gap 8 - 15 mmol/L 10 eGFR >=60 mL/min/1.73m 93 PSA <2.60 ng/mL Latest Ref Rng 07/02/2023 Total Cholesterol, Nonfasting <200 mg/dL 150 Triglycerides, Nonfasting <150 mg/dL 95 HDL Cholesterol, Nonfasting >39 mg/dL 34 (L) LDL Cholesterol, Nonfasting <100 mg/dL 97 Non HDL Cholesterol, Nonfasting <130 mg/dL 116 VLDL Cholesterol, Nonfasting <30 mg/dL 19 Total Chol/HDL Ratio, Nonfasting <5.10 mg/dL 4.41 LDL/HDL Ratio, Nonfasting <2.54 mg/dL 2.85 (H) Depression Screening Never done Anxiety Screening Never done BP Controlled (<130/80) Never done Shingrix Vaccine(1 of 2) Never done RSV Vaccine(1 - Risk 60-74 years 1-dose series) Never done Advance Directive Discussion Never done LDL Cholesterol due on 11/18/2024 Colorectal Cancer Screening due on 11/20/2024 Annual PCP Team Chronic Disease Visit due on 05/25/2025 Diabetes Screening due on 05/24/2027 DTaP,Tdap,Td Vaccine(4 - Td or Tdap) due on 12/11/2027 Lipid Screening due on 11/18/2028 Spirometry Completed Abdominal Aortic Aneurysm Screening Completed Influenza Vaccine Completed Hepatitis C Screening Completed Covid-19 Vaccine Completed Pneumococcal Vaccine: 65+ Completed ASSESSMENT/PLAN: 1. Essential hypertension - ICD9: 401.9, ICD10: I10 (primary diagnosis) - Controlled - Continue current medications - Recommend home blood pressure monitoring, to bring results to next visit - Encouraged sodium restriction, DASH or Mediterranean diet - Recommend regular aerobic exercise - Discussed need for and benefit of weight loss. BMI 30.05 kg/(m^2) - Follow up in 6 months for hypertension visit 2. Encounter for immunization - ICD9: V03.89, ICD10: Z23 - INFLUENZA VACCINE, PRSV FREE, AGE 65+ YR, HIGH DOSE, TRIVALENT (FLUZONE HIGH-DOSE) - Emulate COVID-19 VACCINE AGE 12+ YR (COMIRNATY) 3. Obesity, Class I, BMI 30-34.9 - ICD9: 278.00, ICD10: E66.811 - Lengthy discussion in office today regarding diet and exercise. Discussed use of small plate to eat meals from, drink 1 glass of water 10-15 minutes prior to eating meal, drink 8 glasses of water daily, eat fresh fruit and vegetable during meal first then lean protein such as grilled/baked chicken breast or fish, limit carbohydrate intake (less pasta, breads, rice and snack foods) as well as limiting sugars (desserts etc). Important to count / track your calories and exercise as well. 4. Thrombocytopenia (HCC) - ICD9: 287.5, ICD10: D69.6 - stable - will continue to monitor 5. Elevated alkaline phosphatase level - ICD9: 790.5, ICD10: R74.8 -stable - will continue to monitor 6. Hyperlipidemia, unspecified hyperlipidemia type - ICD9: 272.4, ICD10: E78.5 - Controlled - Continue current medications - Counseled on healthy diet and regular exercise - Discussed need for and benefit of weight loss. BMI 30.05 kg/(m^2) - Follow up in 6 months, sooner should any other issues arise. 7. History of prostate cancer - ICD9: V10.46, ICD10: Z85.46 - stable - follow-up with urology as recommended 8. Coronary artery disease involving [place] heart without angina pectoris, unspecified vessel or lesion type - ICD9: 414.01, ICD10: I25.10 - stable - continue current medications - follow-up with cardiology as recommended 9. History of CVA (cerebrovascular accident) - ICD9: V12.54, ICD10: Z86.73 - stable - continue current medications 10. LESLY on CPAP - ICD9: 327.23, ICD10: G47.33 - continue nightly use 11. SOB (shortness of breath) - ICD9: 786.05, ICD10: R06.02 - stale - continue inhalers - follow-up with pulmonology as recommended Oliva Wong APRN.ANALY Prescription instructions reviewed with patient as applicable. Patient advised if symptoms do not improve or if symptoms worsen sooner, to contact their primary care physician. Potential red flag symptoms discussed with the patient. Reviewed appropriate action plan to take if red flag symptoms occur. Patient agreeable to treatment plan. Medical Decision Making: Problems: Moderate: 2+ stable chronic illnesses Data: Unique test result(s) reviewed: 3+ Risk: Moderate: Drug management and Moderate risk from testing/treatment Medical Decision Making Level: 4 - Moderate documented in this encounter [facility] 03-02-2024 Telephone encounter Note Prescription Refill Information The patient has been identified by name and date of : Yes Caregiver verified no other encounters exist for this prescription request: Yes Caregiver confirmed with patient/requestor that no other refills are due, in the near future, with this provider at this time: Yes The last office visit in the department: 11/19/2023 Does the patient have a future office visit with this provider/department: Yes Requested Prescriptions Pending Prescriptions Disp Refills losartan (COZAAR) 25 mg tablet 45 tablet 1 Sig: Take 0.5 tablets by mouth once daily. pantoprazole DR (PROTONIX) 20 mg tablet 90 tablet 1 Sig: TAKE 1 TABLET DAILY BEFORE BREAKFAST. TAKE ON AN EMPTYSTOMACH, 1/2 HOUR BEFORE A MEAL. atorvastatin (LIPITOR) 80 mg tablet 90 tablet 1 Sig: Take 1 tablet by mouth once daily. Viridiana Cruz LPN March 02, 2024 10:35 AM [facility] 03-02-2024 Miscellaneous Notes Prescription Refill Information The patient has been identified by name and date of : Yes Caregiver verified no other encounters exist for this prescription request: Yes Caregiver confirmed with patient/requestor that no other refills are due, in the near future, with this provider at this time: Yes The last office visit in the department: 11/19/2023 Does the patient have a future office visit with this provider/department: Yes Requested Prescriptions Pending Prescriptions Disp Refills losartan (COZAAR) 25 mg tablet 45 tablet 1 Sig: Take 0.5 tablets by mouth once daily. pantoprazole DR (PROTONIX) 20 mg tablet 90 tablet 1 Sig: TAKE 1 TABLET DAILY BEFORE BREAKFAST. TAKE ON AN EMPTYSTOMACH, 1/2 HOUR BEFORE A MEAL. atorvastatin (LIPITOR) 80 mg tablet 90 tablet 1 Sig: Take 1 tablet by mouth once daily. Viridiana Cruz LPN March 02, 2024 10:35 AM documented in this encounter [facility] 01-28-2024 Telephone encounter Note TC to patient who verbalized understanding of providers message below with no questions at this time. JAYANT Sow [facility] 01-28-2024 Miscellaneous Notes TC to patient who verbalized understanding of providers message below with no questions at this time. JAYANT Sow ----- Message from Vilma Snow MD sent at 01/28/2024 1:56 PM EDT ----- Platelet count remains low in the 130's. HIV and hepatitis C testing is negative. At this time, I would recommend continued monitoring and if dropping less than 100, would consider referral to hematology. Recheck at OV in May. Call with new bleeding or bruising symptoms. documented in this encounter [facility] 01-28-2024 Telephone encounter Note ----- Message from Vilma Snow MD sent at 01/28/2024 1:56 PM EDT ----- Platelet count remains low in the 130's. HIV and hepatitis C testing is negative. At this time, I would recommend continued monitoring and if dropping less than 100, would consider referral to hematology. Recheck at OV in May. Call with new bleeding or bruising symptoms. [facility] 12-24-2023 Telephone encounter Note Patient returned call and went over results, notes from Dr Snow with understanding. Aware lab orders in computer. [facility] 12-24-2023 Miscellaneous Notes Patient returned call and went over results, notes from Dr Snow with understanding. Aware lab orders in computer. LM for patient to contact office. Tre Flores MA Repeat alk phos is back in the normal range <140. LFTs and GGT normal. No further workup required at this time. Platelet count remains slightly low. His level is not low enough to cause spontaneous bleeding. I would complete workup with peripheral smear, HIV and hepatitis C screening in 1-2 months. If testing is stable or normal, no further workup needed. documented in this encounter [facility] 12-24-2023 Telephone encounter Note LM for patient to contact office. Tre Flores MA [facility] 12-24-2023 Telephone encounter Note Repeat alk phos is back in the normal range <140. LFTs and GGT normal. No further workup required at this time. Platelet count remains slightly low. His level is not low enough to cause spontaneous bleeding. I would complete workup with peripheral smear, HIV and hepatitis C screening in 1-2 months. If testing is stable or normal, no further workup needed. [facility] 11-20-2023 Miscellaneous Notes Phoned patient and reviewed results and recommendations with him. Patient voiced understanding. Normal labs aside from slightly high alk phos with normal LFTs and slightly low platelet count. Recommend rechecking in 1 month to monitor. documented in this encounter [facility] 11-19-2023 Miscellaneous Notes PSA changed from screening to diagnostic with client services. Pt aware that we will call with results. Tre Flores MA Pt in office for PCP visit today and asking about getting back in with [facility] for PSA. Pt asking this MA to send message. Per CAROLANN 08/16/22, PSA in 2 months to check doubling time, if 0.4 or higher will recommend a MRI and Bone Scan . Pt had repeat PSA 10/14/22 and was 0.22. Would like to have again and to see if appointment needed. Please review and advise. Tre Flores MA documented in this encounter [facility] 11-19-2023 Note HNO ID: [id number] Author: VILMA SNOW MD Service: ? Author Type: Physician Type: Progress Notes Filed: 11/19/2023 10:00 Note Text: Chief Complaint Patient presents with: Follow Up Diarrhea: Diarrhea - pt wondering if from increase statin dose HPI Maci Howard is a 68 year old male who presents here today for Above Complaints. Patient complaining today of chronic loose stools with 1 episode of watery diarrhea per month for the last year. Treating with imodium and bland diet which helps with symptoms. Thought this may be related to his higher dose of Lipitor, but this was changed 4-5 months ago. Has not identified any trigger foods. Has not tried probiotic or fiber. CAD s/p SHANIQUA to LAD: managed by [facility] Cardiology. No changes to regimen at last OV in December. Asymptomatic on medical management. Has not needed nitro since his last OV with cardiology. BP well controlled on current regimen without side effects. Asthma-COPD overlap: managed by Dr. Pearl's office. Pulmonology took him off of his Breo because it was not helping at all with his symptoms. Started in Nucala injections which was has been working well. Has had productive cough with white sputum, SOB, and wheezing since. Using his albuterol inhaler about 2 times per month with improvement in his symptoms. Has mucinex for PRN. Denies waking up at night coughing. Using CPAP nightly [...] History of CVA (cerebrovascular accident) 06/20/2014 mild History of prostate cancer Obesity (BMI 30.0-34.9) LESLY (obstructive sleep apnea) Consistently compliant with CPAP. PFO (patent foramen ovale) Prostate cancer (HCC) 2012 s/p prostatectomy, Pick S/P prostatectomy Previous Surgical History PAST SURGICAL HISTORY Procedure Laterality Date ESOPHAGOGASTRODUODENOSCOPY TRANSORAL DIAGNOSTIC 05/01/2007 EGD ESOPHAGOGASTRODUODENOSCOPY TRANSORAL DIAGNOSTIC 03/21/2013 [facility] EGD PAST SURGICAL HISTORY OF submandibular gland [...] COPD. Patient Allergies ALLERGIES Allergen Reactions [facility] [* Current Medications Current Outpatient Medications on File Prior to Visit Medication Sig clopidogrel (PLAVIX) 75 mg tablet Take 1 tablet by mouth once daily. losartan (COZAAR) 25 mg tablet Take 0.5 tablets by mouth once daily. pantoprazole DR (PROTONIX) 20 mg tablet TAKE 1 TABLET DAILY BEFORE BREAKFAST. TAKE ON AN EMPTYSTOMACH, 1/2 HOUR BEFORE A MEAL. atorvastatin (LIPITOR) 80 mg tablet Take 1 tablet by mouth once daily. albuterol sulfate (PROAIR HFA INHALATION) Inhale as instructed as needed. NUCALA 100 mg/mL injection Inject 100 mg subcutaneously every 4 weeks. fluticasone (FLONASE) 50 mcg/actuation nasal spray Use 2 Sprays in each nostril once daily. Rinse mouth after use. montelukast (SINGULAIR) 10 mg tablet Take 1 [...] Smoking status: Former Packs/day: 1.00 Years: 20.00 Additional pack years: 0.00 Total pack years: 20.00 Types: Cigarettes Quit date: 08/18/1989 Years since quittin.2 Smokeless tobacco: Former Types: Snuff Quit date: 01/16/2017 Vaping Use Vaping Use: Never used (more content not included)... [facility] 11-19-2023 History of Presen t illness Narrative Chief Complaint Patient presents with: Follow Up Diarrhea: Diarrhea - pt wondering if from increase statin dose HPI Maci Howard is a 68 year old male who presents here today for Above Complaints. Patient complaining today of chronic loose stools with 1 episode of watery diarrhea per month for the last year. Treating with imodium and bland diet which helps with symptoms. Thought this may be related to his higher dose of Lipitor, but this was changed 4-5 months ago. Has not identified any trigger foods. Has not tried probiotic or fiber. CAD s/p SHANIQUA to LAD: managed by [facility] Cardiology. No changes to regimen at last OV in December. Asymptomatic on medical management. Has not needed nitro since his last OV with cardiology. BP well controlled on current regimen without side effects. Asthma-COPD overlap: managed by Dr. Pearl's office. Pulmonology took him off of his Breo because it was not helping at all with his symptoms. Started in Nucala injections which was has been working well. Has had productive cough with white sputum, SOB, and wheezing since. Using his albuterol inhaler about 2 times per month with improvement in his symptoms. Has mucinex for PRN. Denies waking up at night coughing. Using CPAP nightly [...] History of CVA (cerebrovascular accident) 06/20/2014 mild History of prostate cancer Obesity (BMI 30.0-34.9) LESLY (obstructive sleep apnea) Consistently compliant with CPAP. PFO (patent foramen ovale) Prostate cancer (HCC) 2012 s/p prostatectomy, [place] S/P prostatectomy Previous Surgical History PAST SURGICAL HISTORY Procedure Laterality Date ESOPHAGOGASTRODUODENOSCOPY TRANSORAL DIAGNOSTIC 05/01/2007 EGD ESOPHAGOGASTRODUODENOSCOPY TRANSORAL DIAGNOSTIC 03/21/2013 [facility] EGD PAST SURGICAL HISTORY OF submandibular gland [...] asthma, COPD. Patient Allergies ALLERGIES [facility] [* Current Medications Current Outpatient Medications on File Prior to Visit Medication Sig clopidogrel (PLAVIX) 75 mg tablet Take 1 tablet by mouth once daily. losartan (COZAAR) 25 mg tablet Take 0.5 tablets by mouth once daily. pantoprazole DR (PROTONIX) 20 mg tablet TAKE 1 TABLET DAILY BEFORE BREAKFAST. TAKE ON AN EMPTYSTOMACH, 1/2 HOUR BEFORE A MEAL. atorvastatin (LIPITOR) 80 mg tablet Take 1 tablet by mouth once daily. albuterol sulfate (PROAIR HFA INHALATION) Inhale as instructed as needed. NUCALA 100 mg/mL injection Inject 100 mg subcutaneously every 4 weeks. fluticasone (FLONASE) 50 mcg/actuation nasal spray Use 2 Sprays in each nostril once daily. Rinse mouth after use. montelukast (SINGULAIR) 10 mg tablet Take 1 [...] Smoking status: Former Packs/day: 1.00 Years: 20.00 Additional pack years: 0.00 Total pack years: 20.00 Types: Cigarettes Quit date: 08/18/1989 Years since quittin.2 Smokeless tobacco: Former Types: Snuff Quit date: 01/16/2017 Vaping Use Vaping Use: Never used Substance Use Topics Alcohol use: Yes Alcohol/week: 1.0 standard drink of alcohol Types: 1 Cans of Beer (12oz) per week Comment: rare-beer Drug use: No Review of Symptoms REVIEW OF SYSTEMS GENERAL: No weight loss, malaise or fevers RESPIRATORY: See HPI CARDIOVASCULAR: Negative for chest pain, leg swelling, hypertension, CHF or palpitations GI: No nausea, vomiting. SKIN: Negative for lesions, rash, and itching EXAM: BP 124/70 Pulse 74 Resp 16 Wt 106.1 kg (234 lb) BMI (P) 30.87 kg/m General Appearance: Well appearing, alert, in no acute distress, well-hydrated, well nourished.. Skin: Skin color, texture, turgor normal, no suspicious rashes or lesions. Lungs: scattered wheezing bilaterally with good air entry without rales, rhonchi, wheezing. Heart: RRR without murmur, gallop, or rubs. No ectopy. Abdomen: Normal abdominal exam, Abdomen soft, non-tender. Bowel sounds normal. No masses, organomegaly. Extremities: No deformities, edema, skin discoloration, clubbing or cyanosis. Good capillary refill. . Health Maintenance List Shingrix Vaccine(1 of 2) Never done RSV Vaccine(1 - 1-dose 60+ series) Never done Advance Directive Discussion Never done Depression Assessment due on 08/18/2023 Colorectal Cancer Screening due on 08/23/2023 Annual PCP Team Chronic Disease Visit due on 02/20/2024 BP Controlled (<130/80) due on 02/20/2024 LDL Cholesterol due on 07/02/2024 Diabetes Screening due on 02/19/2026 DTaP,Tdap,Td Vaccine(4 - Td or Tdap) due on 12/11/2027 Lipid Screening due on 07/02/2028 Spirometry Completed Abdominal Aortic Aneurysm Screening Completed Influenza Vaccine Completed Hepatitis C Screening Completed Covid-19 Vaccine Completed Pneumococcal Vaccine: 65+ Completed Data reviewed Latest Ref Rng 02/19/2023 07/02/2023 Protein, Total 6.3 - 8.0 g/dL 6.6 Albumin 3.9 - 4.9 g/dL 4.0 Calcium 8.5 - 10.2 mg/dL 9.3 Bilirubin, Total 0.2 - 1.3 mg/dL 0.6 Alkaline Phosphatase 38 - 113 U/L 104 AST 14 - 40 U/L 18 ALT 10 - 54 U/L 17 Glucose 74 - 99 mg/dL 112 (H) BUN 9 - 24 mg/dL 18 Creatinine 0.73 - 1.22 mg/dL 1.02 Sodium 136 - 144 mmol/L 140 Potassium 3.7 - 5.1 mmol/L 4.2 Chloride 97 - 105 mmol/L 108 (H) CO2 22 - 30 mmol/L 22 Anion Gap 9 - 18 mmol/L 10 eGFR >=60 mL/min/1.73m 80 Total Cholesterol, Nonfasting <200 mg/dL 155 150 Triglycerides, Nonfasting <150 mg/dL 71 95 HDL Cholesterol, Nonfasting >39 mg/dL 37 (L) 34 (L) LDL Cholesterol, Nonfasting <100 mg/dL 104 (H) 97 Non HDL Cholesterol, Nonfasting <130 mg/dL 118 116 VLDL Cholesterol, Nonfasting <30 mg/dL 14 19 Total Chol/HDL Ratio, Nonfasting <5.10 mg/dL 4.19 4.41 LDL/HDL Ratio, Nonfasting <2.54 mg/dL 2.81 (H) 2.85 (H) ASSESSMENT/PLAN: 1. Diarrhea, unspecified type - ICD9: 787.91, ICD10: R19.7 (primary diagnosis) Normal exam today. Monthly episodes of watery diarrhea. Doubt medication side effect with infrequent symptoms. Discussed avoidance of triggers, adding on fiber supplement and/or probiotic OTC. Call if symptoms persist or worsen. 2. Essential hypertension - ICD9: 401.9, ICD10: I10 - Controlled - Continue current medications - Recommend home blood pressure monitoring, to bring results to next visit - Encouraged sodium restriction, DASH or Mediterranean diet - Recommend regular aerobic exercise - CBC + DIFF - COMP METABOLIC PANEL 3. Hyperlipidemia, unspecified hyperlipidemia type - ICD9: 272.4, ICD10: E78.5 - Control undetermined, due for labs. Discussed if LDL >70, would recommend addition of Repatha as discussed with cardiology. - Continue current medications - Counseled on healthy diet and regular exercise - LIPID PANEL BASIC 4. Coronary artery disease involving [place] heart without angina pectoris, unspecified vessel or lesion type - ICD9: 414.01, ICD10: I25.10 Asymptomatic. See above. F/u with cardiology. 5. History of CVA (cerebrovascular accident) - ICD9: V12.54, ICD10: Z86.73 No recurrent stroke symptoms. Continue secondary prevention. 6. LESLY on CPAP - ICD9: 327.23, ICD10: G47.33 Controlled with nightly CPAP. 7. Screening for colon cancer - ICD9: V76.51, ICD10: Z12.11 - FECAL OCCULT BLOOD TEST 8. History of prostate cancer - ICD9: V10.46, ICD10: Z85.46 Asymptomatic. Recheck PSA. Overdue for F/u with urology - PSA/PROSTSPECAG SCRN 9. S/P prostatectomy - ICD9: V45.89, ICD10: Z90.79 - PSA/PROSTSPECAG SCRN 10. Severe persistent asthma, uncomplicated - ICD9: 493.90, ICD10: J45.50 Stable. Continue regimen per pulmonology. 11. Chronic bronchitis, unspecified chronic bronchitis type (HCC) - ICD9: 491.9, ICD10: J42 Stable. Continue regimen per pulmonology. 12. Gastroesophageal reflux disease, unspecified whether esophagitis present - ICD9: 530.81, ICD10: K21.9 - Continue treatment with Protonix 20 daily Vilma Snow MD documented in this encounter [facility] 11-18-2023 Miscellaneous Notes Patient has been identified by name and date of : Yes, Provider Dr. Snow Date 11/18/23 Time 9:46 am Patient phones for refill(s): Requested Prescriptions Pending Prescriptions Disp Refills clopidogrel (PLAVIX) 75 mg tablet 90 tablet 1 Sig: Take 1 tablet by mouth once daily. Date of last office visit in primary care: 02/19/2023 Date of next office visit in primary care: 11/18/2023 Thank you. Randa Uribe LPN. documented in this encounter [facility] 07-03-2023 Miscellaneous Notes Rx sent. Phoned patient and reviewed results and recommendations with him. Patient hesitant on increase but finally agreed to trying the 80mg daily and seeing how he tolerates it. ----- Message from Vilam Snow MD sent at 07/02/2023 5:19 PM EST ----- Cholesterol has only come down slightly on Lipitor 40 mg. If tolerating without side effects, would recommend increase to 80 mg daily with recheck at next OV. documented in this encounter [facility] 06-26-2023 Miscellaneous Notes Last office visit: 02/19/23 F/u scheduled: 08/22/23 Jennifer Pena Ma documented in this encounter [facility] 02-20-2023 Miscellaneous Notes Patient notified. [...] will send rx. Please fax labs to bankruptcy attorney's office. documented in this encounter [facility] 02-19-2023 History of Presen t illness Narrative Chief Complaint Patient presents with: Follow Up HPI Maci Howard is a 67 year old male who presents here today for Above Complaints. CAD s/p SHANIQUA to LAD: managed by [facility] Cardiology. No changes to regimen at [...] stroke prevention. Would like ears checked today. [place] full yesterday and treated with debrox drops. [...] ovale) Prostate cancer (HCC) 2012 s/p prostatectomy, Sue Previous Surgical History PAST SURGICAL HISTORY Procedure Laterality Date ESOPHAGOGASTRODUODENOSCOPY TRANSORAL DIAGNOSTIC 05/01/2007 EGD ESOPHAGOGASTRODUODENOSCOPY TRANSORAL DIAGNOSTIC 03/21/2013 [facility] EGD PAST SURGICAL HISTORY OF submandibular gland [...] COPD. 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 2. SOB (shortness of breath) - ICD9: 786.05, ICD10: R06.02 See above 3. Coronary artery disease involving [place] heart without angina pectoris, unspecified vessel or [...] Vilma Snow MD documented in this encounter [facility] 12-16-2022 Miscellaneous Notes Patient has [...] 08/22/22 Patient next office visit: none scheduled Tre Flores MA documented in this encounter [facility] 08-22-2022 History of Presen t illness Narrative Chief Complaint Patient presents with: Follow Up HPI Maci Howard is a 67 year old male who [...] 0.21 in the last 6 months. Ovi Butcher has ordered repeat PSA for 10/15 and [...] ovale) Prostate cancer (HCC) 2012 s/p prostatectomy, Sue Previous Surgical History PAST SURGICAL HISTORY Procedure Laterality Date ESOPHAGOGASTRODUODENOSCOPY TRANSORAL DIAGNOSTIC 05/01/2007 EGD ESOPHAGOGASTRODUODENOSCOPY TRANSORAL DIAGNOSTIC 03/21/2013 [facility] EGD PAST SURGICAL HISTORY OF submandibular gland [...] COPD. Patient Allergies ALLERGIES Allergen Reactions [facility] [* Current Medications Current Outpatient Medications [...] BP <130/80 2. Coronary artery disease involving [place] heart without angina pectoris, unspecified vessel or lesion type - ICD9: 414.01, ICD10: I25.10 S/p SHANIQUA. On mcc DAPT. Asymptomatic on medical management. No change [...] Vilma Snow MD documented in this encounter [facility] 08-21-2022 Miscellaneous Notes Patient has [...] 08/16/2022 110/84 Please advise. Thank you. Genny Vergara LPN documented in this encounter [facility] 08-16-2022 Instructions Ovi Butcher PA-C - 08/16/2022 8:37 AM EST > PSA in 2 months to check doubling time, if 0.4 or higher will recommend a MRI and Bone Scan documented in this encounter [facility] 08-16-2022 History of Presen t illness Narrative Images from the original note were not included. [facility] ESTABLISHED PATIENT CLINIC NOTE Some elements copied from his previous note, which have been updated where appropriate, and all reflect current medical decision making from date of this visit. SERVICE DATE: 08/16/2022 SERVICE TIME: 8:34 AM NAME: Maci Howard CHIEF COMPLAINT: Follow up PSA HISTORY OF PRESENT ILLNESS: Maci Howard is a 67 year old Male with [...] DIAGNOSTIC 05/01/2007 EGD ESOPHAGOGASTRODUODENOSCOPY TRANSORAL DIAGNOSTIC 03/21/2013 [facility] EGD PAST SURGICAL HISTORY OF submandibular gland [...] and MRI NM Bone Scan as well Ovi E. Butcher, MPAS, [place], PA-C Verified name and date of . CC Post Void Residual HPI: Maci Howard is a 67 year old male. The [...] Appointment with Ovi. documented in this encounter [facility] 12-25-2021 Miscellaneous Notes Patient has [...] Randa Uribe LPN documented in this encounter [facility] 11-13-2021 Miscellaneous Notes CAROLANN 08/09/21 [...] patient. Shellie Bah documented in this encounter [facility] 09-08-2017 History of Past i llness Narrative Problem Noted Date Resolved Date Cough 09/08/2017 [...] of this encounter (statuses as of 11/14/2021) [facility] Narrative* [...] of this encounter (statuses as of 12/25/2021) [facility] Narrative* [...] of this encounter (statuses as of 08/21/2022) [facility] illness Narrative* [...] of this encounter (statuses as of 08/23/2022) [facility] Narrative* [...] of this encounter (statuses as of 09/03/2022) [place] [address]-22-2018 History of Past illness Narrative* Problem Noted [...] of this encounter (statuses as of 12/16/2022) [facility] Narrative* [...] of this encounter (statuses as of 02/19/2023) [facility] Narrative* [...] of this encounter (statuses as of 02/20/2023) [facility] Narrative* [...] of this encounter (statuses as of 06/27/2023) [facility] Narrative* [...] as of this encounter (statuses as of 11/18/2023) [facility] Narrative* [...] as of this encounter (statuses as of 11/18/2023) [facility] Narrative* [...] as of this encounter (statuses as of 11/19/2023) [facility] Narrative* [...] as of this encounter (statuses as of 11/20/2023) [facility] Narrative* [...] as of this encounter (statuses as of 11/21/2023) [facility] Narrative* [...] as of this encounter (statuses as of 12/03/2023) [facility] Diagnosis Personal history of prostate cancer- Primary Personal history of malignant neoplasm of prostate [facility] Diagnosis Essential hypertension- Primary Unspecified essential hypertension Coronary artery disease involving [place] heart without angina pectoris, unspecified vessel or [...] Anxiety with depression [facility] Severe persistent asthma, uncomplicated- Primary Unspecified asthma SOB (shortness of breath) Shortness of breath Coronary artery disease involving [place] heart without angina pectoris, unspecified vessel or [...] bronchitis type (HCC) [facility] Hyperlipidemia, unspecified hyperlipidemia type- Primary [facility] Diagnosis Diarrhea, unspecified type- Primary Essential hypertension Unspecified essential hypertension Hyperlipidemia, unspecified hyperlipidemia type Coronary artery disease involving [place] heart without angina pectoris, unspecified vessel or lesion type History of CVA (cerebrovascular accident) Transient ischemic attack (TIA), and cerebral infarction without residual deficits LESLY on CPAP Obstructive sleep apnea (adult) (pediatric) Screening for colon cancer Special screening for malignant neoplasms, colon History of prostate cancer Personal history of malignant neoplasm of prostate S/P prostatectomy Other postprocedural status Severe persistent asthma, uncomplicated Unspecified asthma Chronic bronchitis, unspecified chronic bronchitis type (HCC) Gastroesophageal reflux disease, unspecified whether esophagitis present [facility] Prostate cancer (HCC)- Primary Malignant neoplasm of prostate [facility] Diagnosis Elevated alkaline phosphatase level- Primary Other nonspecific abnormal serum enzyme levels Thrombocytopenia (HCC) Thrombocytopenia, unspecified [facility] Diagnosis Thrombocytopenia (HCC)- Primary Thrombocytopenia, unspecified [facility] Esophagitis, unspecified- Primary HYPERLIPIDEMIA NEC/NOS Other and unspecified hyperlipidemia Prostate cancer (HCC) Malignant neoplasm of prostate Essential hypertension- Primary Unspecified essential hypertension Encounter for immunization Need for other specified prophylactic vaccination against single bacterial disease Obesity, Class I, BMI 30-34.9 Obesity, unspecified Thrombocytopenia (HCC) Thrombocytopenia, unspecified Elevated alkaline phosphatase level Other nonspecific abnormal serum enzyme levels Hyperlipidemia, unspecified hyperlipidemia type History of prostate cancer Personal history of malignant neoplasm of prostate Coronary artery disease involving [place] heart without angina pectoris, unspecified vessel or lesion type History of CVA (cerebrovascular accident) Transient ischemic attack (TIA), and cerebral infarction without residual deficits LESLY on CPAP Obstructive sleep apnea (adult) (pediatric) SOB (shortness of breath) Shortness of breath documented in this encounter [facility] Summary Purpose Family History No Family History Records FoundNo Family History Records Found Advance Directives No Advanced Directives Records FoundDocuments on File Type Date Recorded 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 Advance Directive(s) 11/10/2017 10:50 AM Additional Source Comments (unrecognized sect ion and content) No Status Records FoundNo Status Records Found INFORMATION SOURCE (unrecogn ized section and content) DATE CREATED AUTHOR 02/05/2018 [facility] DATE CREATED AUTHOR AUTHOR'S ORGANIZ ATION 05/31/2024 [facility] Source Comments (unrecognize d section and content) In the event this informatio n is protected by the Federal Confidentiality of Alcohol and Drug Abuse Patient Records regulations: The Federal rules restrict any use of the information to criminally investigate or prosecute any alcohol or drug abuse patient.[facility] the event this information is protected by the Federal Confidentiality of Alcohol and Drug Abuse Patient Records regulations: The Federal rules restrict any use of the information to criminally investigate or prosecute any alcohol or drug abuse patient.[facility] the event this information is protected by the Federal Confidentiality of Alcohol and Drug Abuse Patient Records regulations: The Federal rules restrict any use of the information to criminally investigate or prosecute any alcohol or drug abuse patient.[facility] the event this information is protected by the Federal Confidentiality of Alcohol and Drug Abuse Patient Records regulations: The Federal rules restrict any use of the information to criminally investigate or prosecute any alcohol or drug abuse patient.[facility] the event this information is protected by the Federal Confidentiality of Alcohol and Drug Abuse Patient Records regulations: The Federal rules restrict any use of the information to criminally investigate or prosecute any alcohol or drug abuse patient.[facility] the event this information is protected by the Federal Confidentiality of Alcohol and Drug Abuse Patient Records regulations: The Federal rules restrict any use of the information to criminally investigate or prosecute any alcohol or drug abuse patient.[facility] the event this information is protected by the Federal Confidentiality of Alcohol and Drug Abuse Patient Records regulations: The Federal rules restrict any use of the information to criminally investigate or prosecute any alcohol or drug abuse patient.[facility] the event this information is protected by the Federal Confidentiality of Alcohol and Drug Abuse Patient Records regulations: The Federal rules restrict any use of the information to criminally investigate or prosecute any alcohol or drug abuse patient.[facility] the event this information is protected by the Federal Confidentiality of Alcohol and Drug Abuse Patient Records regulations: The Federal rules restrict any use of the information to criminally investigate or prosecute any alcohol or drug abuse patient.[facility] the event this information is protected by the Federal Confidentiality of Alcohol and Drug Abuse Patient Records regulations: The Federal rules restrict any use of the information to criminally investigate or prosecute any alcohol or drug abuse patient.[facility] the event this information is protected by the Federal Confidentiality of Alcohol and Drug Abuse Patient Records regulations: The Federal rules restrict any use of the information to criminally investigate or prosecute any alcohol or drug abuse patient.[facility] the event this information is protected by the Federal Confidentiality of Alcohol and Drug Abuse Patient Records regulations: The Federal rules restrict any use of the information to criminally investigate or prosecute any alcohol or drug abuse patient.[facility] the event this information is protected by the Federal Confidentiality of Alcohol and Drug Abuse Patient Records regulations: The Federal rules restrict any use of the information to criminally investigate or prosecute any alcohol or drug abuse patient.[facility] the event this information is protected by the Federal Confidentiality of Alcohol and Drug Abuse Patient Records regulations: The Federal rules restrict any use of the information to criminally investigate or prosecute any alcohol or drug abuse patient.[facility] the event this information is protected by the Federal Confidentiality of Alcohol and Drug Abuse Patient Records regulations: The Federal rules restrict any use of the information to criminally investigate or prosecute any alcohol or drug abuse patient.[facility] the event this information is protected by the Federal Confidentiality of Alcohol and Drug Abuse Patient Records regulations: The Federal rules restrict any use of the information to criminally investigate or prosecute any alcohol or drug abuse patient.[facility] the event this information is protected by the Federal Confidentiality of Alcohol and Drug Abuse Patient Records regulations: The Federal rules restrict any use of the information to criminally investigate or prosecute any alcohol or drug abuse patient.[facility] the event this information is protected by the Federal Confidentiality of Alcohol and Drug Abuse Patient Records regulations: The Federal rules restrict any use of the information to criminally investigate or prosecute any alcohol or drug abuse patient.[facility] Medical CenterIn the event this information is protected by the Federal Confidentiality of Alcohol and Drug Abuse Patient Records regulations: The Federal rules restrict any use of the information to criminally investigate or prosecute any alcohol or drug abuse patient.[facility] Reason for Visit (unrecogniz ed section and content) Reason Onset Date Comments Refill Request 11/13/2021 Reason Onset Date Comments Refill Request 12/25/2021 Reason Comments Follow Up Specialty Diagnoses / Procedures Referred By Chato da silva Referred To Contact Urology Diagnoses Personal history of prostate cancer Procedures CONSULT TO UROLOGY NEW PATIENT VISIT LEVEL 5 Vilma Snow MD [address] [place] [address] Referral ID Status Reason Start Date Expiration Date V isits Requested Visits Authorized [id number] Closed PCP Requested Referral 08/09/2021 08/09/2022 1 1 Reason Onset Date Comments Refill Request 08/21/2022 Refill Request 09/03/2022 Reason Onset Date Comments Refill Request 12/16/2022 Reason Comments Results Reason Onset Date Comments Refill Request 06/26/2023 Reason Onset Date Comments Refill Request 11/18/2023 Reason Comments Follow Up Diarrhea Diarrhea - pt wonder ing if from increase statin dose Reason Comments PSA question Reason Onset Date Comments Refill Request 03/02/2024 Reason Comments F/U 6 months Care Teams (unrecognized sec tion and content) Marketing Project Manager Relationship Specialty Start Date End Date Vilma Snow MD [address] [facility] [place] [address] PCP - General Family Practice 12/06/16 Marketing Project Manager Relationship Specialty Start Date End Date Vilma Snow MD [address] [facility] [place] [address] PCP - General Family Practice 12/06/16 Marketing Project Manager Relationship Specialty Start Date End Date Vilma Snow MD [address] [facility] [place] [address] PCP - General Family Medicine 12/06/16 Marketing Project Manager Relationship Specialty Start Date End Date Vilma Snow MD [address] [place] [place] [address] PCP - General Family Medicine 12/06/16 Marketing Project Manager Relationship Specialty Start Date End Date Vilma Snow MD [address] [facility] [place] [address] PCP - General Family Medicine 12/06/16 Marketing Project Manager Relationship Specialty Start Date End Date Vilma Snow MD [address] [place] [place] [address] PCP - General Family Medicine 12/06/16 Marketing Project Manager Relationship Specialty Start Date End Date Vilma Snow MD [address] [place] [place] [address] PCP - General Family Medicine 12/06/16 Marketing Project Manager Relationship Specialty Start Date End Date Vilma Snow MD [address] [place] [place] [address] PCP - General Family Medicine 12/06/16 Marketing Project Manager Relationship Specialty Start Date End Date Vilma Snow MD [address] [place] [place] [address] PCP - General Family Medicine 12/06/16 Marketing Project Manager Relationship Specialty Start Date End Date Vilma Snow MD [address] [place] [place] [address] PCP - General Family Medicine 12/06/16 Marketing Project Manager Relationship Specialty Start Date End Date Vilma Snow MD [address] [place] [place] [address] PCP - General Family Medicine 12/06/16 Marketing Project Manager Relationship Specialty Start Date End Date Vilma Snow MD [address] [place] [place] [address] PCP - General Family Medicine 12/06/16 Marketing Project Manager Relationship Specialty Start Date End Date Vilma Snow MD [address] [place] [place] [address] PCP - General Family Medicine 12/06/16 Marketing Project Manager Relationship Specialty Start Date End Date Vilma Snow MD [address] [place] [place] [address] PCP - General Family Medicine 12/06/16 Marketing Project Manager Relationship Specialty Start Date End Date Vilma Snow MD [address] [place] [place] [address] PCP - General Family Medicine 12/06/16 Marketing Project Manager Relationship Specialty Start Date End Date Vilma Snow MD [address] [place] [place] [address] PCP - General Family Medicine 12/06/16 FOR [...] BE BASED ON THE PRIMARY CLINICAL RECORDS. [employer] [facility]. provides no warranty or guarantee of the accuracy or completeness of information in this document.
== END | disposition home or self-care (01) ==
LOC: PSN 06:57
PROVIDERS: PCP Family Medicine; Referring Provider Nurse Practitioner Family; Visit Provider Nurse Practitioner Family
DX: I49.8 Other specified cardiac arrhythmias (principal)
CPT/HCPCS: 93225; 93226

== ENCOUNTER 2024-07-09 10:59 | Outpatient (CLI) | payer MEDICARE, SELFPAY ==
[2017-05-16 09:58] VITALS: BMI 30.9
[2024-07-09 11:07] VITALS: BP 136/94; PULSE 81; RESP 16; TEMP 36.4; O2SAT 98; BMI 29.7
[2024-07-09] MEDS: Mepolizumab 100 MG VIAL SC (11:39)
== END 2024-07-09 23:59 | disposition home or self-care (01) ==
LOC: MEDOUTP 10:59
PROVIDERS: PCP Family Medicine; Referring Provider Nurse Practitioner Acute Care; Visit Provider Nurse Practitioner Acute Care
DX: J45.50 Severe persistent asthma, uncomplicated (principal)
CPT/HCPCS: 96372; J2182

== ENCOUNTER 2024-08-06 09:22 | Outpatient (CLI) | payer MEDICARE, SELFPAY ==
[2017-05-16 09:58] VITALS: BMI 30.9
[2024-08-06 09:43] VITALS: BP 128/91; PULSE 61; RESP 18; TEMP 36; O2SAT 100; BMI 29.0
[2024-08-06] MEDS: Mepolizumab 100 MG VIAL SC (10:02)
== END 2024-08-06 23:59 | disposition home or self-care (01) ==
LOC: MEDOUTP 09:22
PROVIDERS: PCP Family Medicine; Referring Provider Nurse Practitioner Acute Care; Visit Provider Nurse Practitioner Acute Care
DX: J45.50 Severe persistent asthma, uncomplicated (principal)
CPT/HCPCS: 96372; J2182

== ENCOUNTER 2024-09-03 09:28 | Outpatient (CLI) | payer MEDICARE, SELFPAY ==
[2017-05-16 09:58] VITALS: BMI 30.9
[2024-09-03 09:34] VITALS: BP 135/83; PULSE 60; RESP 16; TEMP 35.8; O2SAT 100; BMI 29.0
[2024-09-03] MEDS: Mepolizumab 100 MG VIAL SC (10:23)
== END 2024-09-03 23:59 | disposition home or self-care (01) ==
LOC: MEDOUTP 09:29
PROVIDERS: PCP Family Medicine; Referring Provider Nurse Practitioner Acute Care; Visit Provider Nurse Practitioner Acute Care
DX: J45.50 Severe persistent asthma, uncomplicated (principal)
CPT/HCPCS: 96372; J2182

== ENCOUNTER 2024-10-01 08:12 | Outpatient (CLI) | payer MEDICARE, SELFPAY ==
[2017-05-16 09:58] VITALS: BMI 30.9
[2024-10-01 08:21] VITALS: BP 158/91; PULSE 57; RESP 16; TEMP 35.6; O2SAT 98
[2024-10-01] MEDS: Mepolizumab 100 MG VIAL SC (08:35)
== END 2024-10-01 23:59 | disposition home or self-care (01) ==
LOC: MEDOUTP 08:12
PROVIDERS: PCP Family Medicine; Referring Provider Nurse Practitioner Acute Care; Visit Provider Nurse Practitioner Acute Care
DX: J45.50 Severe persistent asthma, uncomplicated (principal)
CPT/HCPCS: 96372; J2182

== ENCOUNTER 2024-10-29 08:24 | Outpatient (CLI) | payer MEDICARE, SELFPAY ==
[2017-05-16 09:58] VITALS: BMI 30.9
[2024-10-29 08:28] VITALS: BP 141/80; PULSE 61; RESP 16; TEMP 35.8; O2SAT 97
[2024-10-29] MEDS: Mepolizumab 100 MG VIAL SC (09:08)
== END 2024-10-29 23:59 | disposition home or self-care (01) ==
LOC: MEDOUTP 08:24
PROVIDERS: PCP Family Medicine; Referring Provider Nurse Practitioner Acute Care; Visit Provider Nurse Practitioner Acute Care
DX: J45.50 Severe persistent asthma, uncomplicated (principal)
CPT/HCPCS: 96372; J2182

== ENCOUNTER 2024-11-26 08:45 | Outpatient (CLI) | payer MEDICARE, SELFPAY ==
[2017-05-16 09:58] VITALS: BMI 30.9
[2024-11-26 09:00] VITALS: BP 132/71; PULSE 40; RESP 14; TEMP 35.6; O2SAT 96; BMI 29.0
[2024-11-26] MEDS: Mepolizumab 100 MG VIAL SC (09:19)
== END 2024-11-26 23:59 | disposition home or self-care (01) ==
LOC: MEDOUTP 08:45
PROVIDERS: PCP Family Medicine; Referring Provider Nurse Practitioner Acute Care; Visit Provider Nurse Practitioner Acute Care
DX: J45.50 Severe persistent asthma, uncomplicated (principal)
CPT/HCPCS: 96372; J2182

== ENCOUNTER 2024-12-24 08:48 | Outpatient (CLI) | payer MEDICARE, SELFPAY ==
[2017-05-16 09:58] VITALS: BMI 30.9
[2024-12-24 08:56] VITALS: BP 140/84; PULSE 52; RESP 16; TEMP 35.6; O2SAT 98
[2024-12-24] MEDS: Mepolizumab 100 MG VIAL SC (09:22)
== END 2024-12-24 23:59 | disposition home or self-care (01) ==
LOC: MEDOUTP 08:48
PROVIDERS: PCP Family Medicine; Referring Provider Nurse Practitioner Acute Care; Visit Provider Nurse Practitioner Acute Care
DX: J45.50 Severe persistent asthma, uncomplicated (principal)
CPT/HCPCS: 96372; J2182

== ENCOUNTER 2025-01-21 08:48 | Outpatient (CLI) | payer MEDICARE, SELFPAY ==
[2017-05-16 09:58] VITALS: BMI 30.9
[2025-01-21 08:58] VITALS: BP 126/68; PULSE 45; RESP 16; TEMP 35.9; O2SAT 98; BMI 29.7
[2025-01-21] MEDS: Mepolizumab 100 MG VIAL SC (09:26)
== END 2025-01-21 23:59 | disposition home or self-care (01) ==
LOC: MEDOUTP 08:48
PROVIDERS: PCP Family Medicine; Referring Provider Nurse Practitioner Acute Care; Visit Provider Nurse Practitioner Acute Care
DX: J45.50 Severe persistent asthma, uncomplicated (principal)
CPT/HCPCS: 96372; J2182

== ENCOUNTER 2025-02-21 08:55 | Outpatient (CLI) | payer MEDICARE, SELFPAY ==
[2017-05-16 09:58] VITALS: BMI 30.9
[2025-02-21 09:12] VITALS: BP 114/78; PULSE 52; RESP 16; TEMP 35.6; O2SAT 98
== END 2025-02-21 23:59 | disposition home or self-care (01) ==
LOC: MEDOUTP 08:56
PROVIDERS: PCP Family Medicine; Referring Provider Nurse Practitioner Acute Care; Visit Provider Nurse Practitioner Acute Care
DX: J45.50 Severe persistent asthma, uncomplicated (principal)
CPT/HCPCS: 96372; J2182

== ENCOUNTER 2025-03-21 08:49 | Outpatient (CLI) | payer MEDICARE, SELFPAY ==
[2017-05-16 09:58] VITALS: BMI 30.9
[2025-03-21 08:52] VITALS: BP 135/77; PULSE 46; RESP 18; TEMP 35.6; O2SAT 98
== END 2025-03-21 23:59 | disposition home or self-care (01) ==
LOC: MEDOUTP 08:49
PROVIDERS: PCP Family Medicine; Referring Provider Nurse Practitioner Acute Care; Visit Provider Nurse Practitioner Acute Care
DX: J45.50 Severe persistent asthma, uncomplicated (principal)
CPT/HCPCS: 96372; J2182

== ENCOUNTER 2025-04-21 12:17 | Outpatient (CLI) | payer MEDICARE, SELFPAY ==
[2017-05-16 09:58] VITALS: BMI 30.9
[2025-04-21 12:31] VITALS: BP 124/83; PULSE 50; RESP 14; TEMP 36.2; O2SAT 100; BMI 29.0
--- OUTSIDE RECORDS SUMMARY | 2025-04-21 20:01 | XMS RPT_ITS | CCD ---
Author Organization [facility] CliniSyny Care Team Providers Care Access Control Officer Name Role Phone YOUSUF COATES Unavailable Unavailable YOUSUF COATES Unavailable Unavailable YOUSUF COATES Unavailable Unavailable Gwendolyn SPANN, Vilma Churchill Primary Care Provider Gwendolyn SPANN, Vilma Churchill Primary Care Provider Gwendolyn SPANN, Vilma Churchill Primary Care Provider Podlogar DIRECTORY CARRIER.Oliva BECKFORD Unavailable Knoble DIRECTORY CARRIER.HOME VISITORWhit Unavailable Knoble DIRECTORY CARRIER.ANALY, Whit Unavailable Stephane Nuñez MD Unavailable Zelaya POLISHER SAND, Gisel Referring Unavailable Zelaya POLISHER SAND, Gisel Attending Unavailable Bursley, Elmo Primary Care Unavailable Roof POLISHER SAND, Yoan H Attending Unavailable Bursley, Elmo Primary Care Unavailable Roof POLISHER SAND, Yoan H Referring Unavailable Eliseo Borja Attending Unavailable Bursley, Elmo Primary Care Unavailable Moy Katz Attending Unavailable Bursley, Elmo Referring Unavailable Bursley, Elmo Primary Care Unavailable Zelaya POLISHER SAND, Gisel Attending Unavailable Zelaya POLISHER SAND, Gisel Referring Unavailable Bursley, Elmo Primary Care Unavailable Zelaya POLISHER SAND, Gisel Attending Unavailable Bursley, Elmo Primary Care Unavailable Zelaya POLISHER SAND, Gisel Referring Unavailable Zelaya POLISHER SAND, Gisel Referring Unavailable Zelaya POLISHER SAND, Gisel Attending Unavailable Bursley, Elmo Primary Care Unavailable Zelaya POLISHER SAND, Gisel Referring Unavailable Zelaya POLISHER SAND, Gisel Attending Unavailable Bursley, Elmo Primary Care Unavailable Bursley, Elmo Primary Care Unavailable Zelaya POLISHER SAND, Gisel Referring Unavailable Zelaya POLISHER SAND, Gisel Attending Unavailable Bursley, Elmo Referring Unavailable Zelaya POLISHER SAND, Gisel Attending Unavailable Bursley, Elmo Primary Care Unavailable Bursley, Elmo Primary Care Unavailable Zelaya POLISHER SAND, Gisel Referring Unavailable Zelaya POLISHER SAND, Gisel Attending Unavailable Roof POLISHER SAND, Yoan H Referring Unavailable Roof POLISHER SAND, Yoan H Attending Unavailable Bursley, Elmo Primary Care Unavailable Bursley, Elmo Primary Care Unavailable Bursley, Elmo Referring Unavailable Zelaya POLISHER SAND, Gisel Attending Unavailable Roof POLISHER SAND, Yoan H Attending Unavailable Bursley, Elmo Referring Unavailable Bursley, Elmo Primary Care Unavailable Ron Yancey Attending Unavailable Bursley, Elmo Primary Care Unavailable Zelaya POLISHER SAND, Gisel Referring Unavailable Zelaya POLISHER SAND, Gisel Attending Unavailable Bursley, Elmo Primary Care Unavailable Zelaya POLISHER SAND, Gisel Attending Unavailable Bursley, Elmo Primary Care Unavailable Zelaya POLISHER SAND, Gisel Referring Unavailable Roof POLISHER SAND, Yoan H Referring Unavailable Roof POLISHER SAND, Yoan H Attending Unavailable Bursley, Elmo Primary Care Unavailable Zelaya POLISHER SAND, Gisel Attending Unavailable Zelaya POLISHER SAND, Gisel Referring Unavailable Bursley, Elmo Primary Care Unavailable Zelaya POLISHER SAND, Gisel Referring Unavailable Zelaya POLISHER SAND, Gisel Attending Unavailable Bursley, Elmo Primary Care Unavailable Zelaya POLISHER SAND, Gisel Attending Unavailable Bursley, Elmo Primary Care Unavailable Zelaya POLISHER SAND, Gisel Referring Unavailable Zelaya POLISHER SAND, Gisel Referring Unavailable Zelaya POLISHER SAND, Gisel Attending Unavailable Karlieley, Elmo Primary Care Unavailable VILMA SNOW Attending Unavailab VILMA Asencio Primary Care Unavailab le LEENA SNOWER Kerline Primary Care Unavailab le LEENA SNOWER Kerline Referring Unavailab le LEENA SNOWER Kerline Referring Unavailab le LEENA SNOWER B Primary Care Unavailab le LEENA SNOWER Kerline Referring Unavailab le LEENA SNOWER B Primary Care Unavailab le LEENA SNOWER B Primary Care Unavailab le STEPHANE NUÑEZ Referring Unavailable VILMA SNOW Referring Unavailab le LEENA SNOWER B Primary Care Unavailab le STEPHANE NUÑEZ Attending Unavailable VILMA SNOW Primary Care Unavailab le STEPHANE NUÑEZ Referring Unavailable STEPHANE NUÑEZ Attending Unavailable VILMA SNOW Primary Care Unavailab le STEPHANE NUÑEZ Referring Unavailable VILMA SNOW Primary Care Unavailab le STEPHANE NUÑEZ Referring Unavailable VILMA SNOW Primary Care Unavailab le LEENA SNOWER Kerline Referring Unavailab le OLIVA WONG Attending Unavailable VILMA SNOW Primary Care Unavailab le Allergies Allergy Classification Reported Allergen(s) Allergy Type Date of Onset Reaction(s) Facility (20 sources) chlorzoxazone; Translations: [CHLORZOXAZONE] Drug Allergy 03-11-2006 [facility] Other [place] [facility] Medications Current Medications Medication Drug Class(es) Dates Sig (Normalized) Sig (Original) [id number] 200 actuat albuterol 0.09 mg/actuat metered dose inhaler (20 sources) beta2-Adrenergic Agonist Start: 01-23-2017 take 2 puff(s) by inhalation every four hours as needed albuterol HFA (VENTOLIN HFA) 90 mcg/actuation inhaler Indications: Moderate persistent asthma without complication (HCC) Inhale 2 Puffs as instructed every 4 hours as needed. 1 Inhaler 3 01/23/2017 Active albuterol sulfat e (PROAIR HFA INHALATION) Inhale as instructed as needed. Active albuterol sulfat e (PROAIR HFA INHALATION) Inhale as instructed as needed. 0 Active Comment on above: Inhale 2 Puffs as in structed every 4 hours as needed. Inhale as instructed as needed. atorvastatin 80 mg oral tablet (20 sources) HMG-CoA Reductase Inhibitor Start: End: take 1 tablet by mouth once daily atorvastatin (LIPITOR) 80 mg tablet Take 1 tablet by mouth once daily. 90 tablet 1 03/07/2025 09/03/2025 Active Start: 07-03-2023 End: 02-28-2025 take 1 tablet by mouth once daily atorvastatin (LIPITOR) 80 mg tablet Take 1 tablet by mouth once daily. 90 tablet 1 09/01/2024 Active Start: 02-20-2023 End: 08-19-2023 take 1 [...] sources) P2Y12 Platelet Inhibitor Start: 06-18-2022 End: 12-20-2024 take 1 tablet by mouth once daily clopidogrel (PLAVIX) 75 mg tablet Take 1 tablet by mouth once daily. 90 tablet 1 12/20/2024 Active Start: 05-14-2021 End: 12-25-2021 take 1 tablet by mouth once daily clopidogrel (PLAVIX) 75 mg tablet Take 1 tablet by mouth once daily. 90 tablet 1 12/25/2021 Active Comment on above: Take 1 tablet by andreea th once daily. CPAP (20 sources) CPAP Active CPAP fluticasone propionate 0.05 mg/actuat metered dose nasal spray (20 sources) Corticosteroid Start: 08-25-2018 take 2 spray(s) [...] (20 sources) Angiotensin 2 Receptor Noemí Start: 03-23-2025 End: 09-19-2025 take 0.5 tablet by mouth once daily losartan (COZAAR) 25 mg tablet Take 0.5 tablets by mouth once daily. 45 tablet 1 03/23/2025 09/19/2025 Active Start: 2022 End: 02-28-2025 take 0.5 tablet by mouth once daily losartan (COZAAR) 25 mg tablet Take 0.5 tablets by mouth once daily. 45 tablet 1 09/01/2024 Active Start: 05-14-2021 End: 11-13-2021 take 0.5 tablet by mouth once daily losartan (COZAAR) 25 mg tablet Take 0.5 tablets by mouth once daily. 45 tablet 1 11/14/2021 Active Comment on above: Take 0.5 tablets by mouth once daily. 1 ml mepolizumab 100 mg/ml auto-injector (20 sources) Interleukin-5 Antagonist Start: 019 NUCALA 100 mg/mL injection Inject 100 mg subcutaneously every 4 weeks. 06/18/2019 Active Comment on above: Inject 100 mg subcut aneously every 4 weeks. montelukast 10 mg oral tablet (20 sources) Leukotriene Receptor Antagonist Start: 017 take 1 tablet by mouth once daily at bedtime montelukast (SINGULAIR) 10 mg tablet Take 1 tablet by mouth daily at bedtime. 0 06/12/2017 Active Comment on above: Take 1 tablet by andreea th daily at bedtime. nitroglycerin 0.4 mg sublingual tablet (12 sources) Nitrate Vasodilator Start: nitroglycerin sublingual (NITROQUICK) 0.4 mg SL tablet Take 1 tablet by mouth every 5 minutes as needed for chest pain. FOR CHEST PAIN. IF NO PAIN RELIEF, CALL 911 25 tablet 11/23/2024 Active pantoprazole 20 mg delayed release oral tablet (20 sources) Proton Pump Inhibitor Start: pantoprazole DR (PROTONIX) 20 mg tablet TAKE 1 TABLET DAILY BEFORE BREAKFAST. TAKE ON AN EMPTYSTOMACH, 1/2 HOUR BEFORE A MEAL. 90 tablet 1 03/23/2025 Active Start: 2022 End: 09-13-[address] (PROTONIX) 2 0 mg tablet TAKE 1 TABLET DAILY BEFORE BREAKFAST. TAKE ON AN EMPTYSTOMACH, 1/2 HOUR BEFORE A MEAL. 90 tablet 1 09/13/2024 Active Start: 05-14-2021 End: 11-13-[address] (PROTONIX) 2 0 mg tablet TAKE 1 TABLET DAILY BEFORE BREAKFAST. TAKE ON AN EMPTYSTOMACH, 1/2 HOUR BEFORE A MEAL. 90 tablet 1 11/14/2021 Active Comment on above: TAKE 1 TABLET DAILY BEFORE BREAKFAST. TAKE ON AN EMPTYSTOMACH, 1/2 HOUR BEFORE A MEAL. Completed/Discontinued Medications Medication Drug Class(es) Dates Sig (Normalized) Sig (Original) aspirin 81 mg chewable tablet (20 sources) Platelet Aggregation Inhibitor, Nonsteroidal Anti-inflammatory Drug End: 04-15-2025 take 1 tablet by mouth once daily aspirin 81 mg chewable tablet Take 81 mg by mouth once daily. 04/15/2025 Discontinued Comment on above: Take 81 mg by mouth once daily. 30 actuat fluticasone furoate 0.2 mg/actuat / vilanterol 0.025 mg/actuat dry powder inhaler (5 sources) Corticosteroid, beta2-Adrenergic Agonist End: 08-22-2022 fluticasone-vilante rol (BREO ELLIPTA) 200-25 mcg/dose inhaler Breo Ellipta 200 mcg-25 mcg/dose powder for inhalation 0 08/22/2022 Discontinued Comment on above: Breo Ellipta 200 mcg -25 mcg/dose powder for inhalation NITROGLYCERIN SUBLINGUAL (20 sources) End: 11-23-2024 NITROGLYCERIN SUBLINGUAL Dissolve under the tongue as needed. 11/23/2024 Discontinued NITROGLYCERIN LANDIS BLINGUAL Dissolve under the tongue as needed. Active NITROGLYCERIN LANDIS BLINGUAL Dissolve under the tongue as needed. 0 Active Comment on above: Dissolve under the t ongue as needed. Problems Active Problems Problem Classification Problem Date Documented Da te Episodic/Chronic Acute cerebrovascular disease (20 sources) Cerebrovascular accident; Translations: [Cerebral infarction, unspecified] Onset: 4 08-09-2014 Chronic Anxiety disorders (1 source) Mixed anxiety and depressive disorder; Translations: [Other specified anxiety disorders] Chronic Asthma (20 sources) Uncomplicated severe persistent asthma; Translations: [Severe persistent asthma, uncomplicated] Onset: 0 12-20-2019 Chronic Cardiac and circulatory congenital anomalies (20 sources) Patent foramen ovale; Translations: [Atrial septal defect] Onset: 5 02-12-2015 Chronic Cardiac dysrhythmias (1 source) Other specified cardiac arrhythmias; Translations: [Other specified cardiac arrhythmias] Onset: 4 Chronic Chronic obstructive pulmonary disease and bronchiectasis (20 sources) Chronic bronchitis; Translations: [Unspecified chronic bronchitis] Onset: 3 Chronic Coagulation and hemorrhagic disorders (10 sources) Thrombocytopenic disorder; Translations: [Thrombocytopenia, unspecified] Onset: [...] Chronic Hypertension with complications and secondary hypertension (20 sources) Hypertensive heart disease; Translations: [Hypertensive heart disease without heart failure] Onset: 4 06-15-2014 Chronic Other ear and sense organ disorders (1 source) Ear sensations - finding; Translations: [Other specified disorders of ear, bilateral] Episodic Other gastrointestinal disorders (20 sources) Dysphagia; Translations: [Dysphagia] 02-26-2007 Episodic Other gastrointestinal disorders (1 source) Diarrhea; Translations: [Diarrhea, unspecified] 11-19-2023 Episodic Other liver diseases (1 source) Steatosis of liver; Translations: [Fatty (change of) liver, not elsewhere classified] 04-01-2025 Chronic Other liver diseases (1 source) Fatty (change of) liver, not elsewhere classified; Translations: [Fatty (change of) liver, not elsewhere classified] Onset: 5 Chronic Other liver diseases (6 sources) Alkaline phosphatase raised; Translations: [Abnormal levels of other serum enzymes] 11-20-2023 Episodic Other nutritional; endocrine; and metabolic disorders (17 sources) Obese class I; Translations: [Obesity, Class [...] Problem Date Documented Date Episodic/Chronic Abdominal hernia (20 sources) Diaphragmatic hernia; Translations: [Diaphragmatic hernia without obstruction or gangrene] Onset: 05-01-2007 05-01-2007 Episodic Cancer of prostate (20 sources) Malignant tumor of prostate; Translations: [Malignant neoplasm of prostate] Onset: 05-26-2013 Resolved: 02-19-2023 05-26-2013 Chronic Cancer of prostate (20 sources) History of malignant neoplasm of prostate; Translations: [Personal history of malignant neoplasm of prostate] Onset: 02-19-2023 Episodic Esophageal disorders (20 sources) Esophagitis; Translations: [Esophagitis, unspecified] Onset: 05-01-2007 05-26-2013 Episodic Immunizations and screening for infectious disease (3 sources) Patient encounter status; Translations: [Encounter for immunization] Onset: 05-25-2024 05-25-2024 Episodic Mood disorders (19 sources) Depressive disorder; Translations: [Depression] Resolved: 12-11-2018 12-11-2018 Chronic Other aftercare (19 sources) Long-term current use of anticoagulant; Translations: [lobsterman (current) use of anticoagulants] Onset: 08-09-2014 Resolved: 09-10-2017 09-10-2017 Episodic Other circulatory disease (20 sources) History of cerebrovascular accident; Translations: [Personal history of transient ischemic attack (TIA), and cerebral infarction without residual deficits] Onset: 06-20-2014 11-29-2016 Episodic Other circulatory disease (1 source) Personal history of transient ischemic attack (TIA), and cerebral infarction without residual deficits; Translations: [History of CVA (cerebrovascular accident)] Onset: 11-29-2016 Episodic Other liver diseases (1 source) Abnormal levels of other serum enzymes; Translations: [Elevated alkaline phosphatase level] Onset: 12-07-2024 Episodic Other lower respiratory disease (3 sources) Shortness of breath; Translations: [Cough] Onset: 09-08-2017 Episodic Other lower respiratory disease (20 sources) Dyspnea; Translations: [Shortness of breath] Onset: 09-08-2017 09-08-2017 Episodic Other lower respiratory disease (19 sources) Cough; Translations: [Cough] Onset: 09-08-2017 Resolved: 12-10-2017 12-10-2017 Episodic Other lower respiratory disease (19 sources) Wheezing; Translations: [Wheezing] Onset: 09-08-2017 Resolved: 12-10-2017 12-10-2017 Episodic Other screening for suspected conditions (not mental disorders or infectious disease) (20 sources) Raised prostate specific antigen; Translations: [Elevated prostate specific antigen [PSA]] Onset: 01-19-2008 08-13-2021 Episodic Residual codes; unclassified (19 sources) Sleep apnea; Translations: [Sleep apnea, unspecified] Onset: 12-14-2014 Resolved: 06-02-2017 06-02-2017 Chronic Residual codes; unclassified (20 sources) Family history of prostate cancer; Translations: [Family history of malignant neoplasm of prostate] Onset: 01-19-2008 01-19-2008 Episodic Results Test Name Value Interpretation Reference Range Facility CBC W Auto Differential pane l (Bld)on 04-15-2025 Basophils (Bld) [#/Vol] 10*3/uL Normal <0.11 [facility] Comment on above: Order Comment: Speci men Type: BLOOD SPECIMENOrdering Facility: [facility] Address: [address] [place] [address] Performed By: #### 5 7021-8 ####[facility] [id number] [address] STATES [facility] Basophils/100 WBC (Bld) 0.5 % Normal [facility] Comment on above: Order Comment: Speci men Type: BLOOD SPECIMENOrdering Facility: [facility] Address: [address] [place] [address] Performed By: #### 5 7021-8 ####[facility]PITALWHILIA [id number] [place] [address] [place] [facility] Differential cell count method Nom (Bld) Auto Normal [facility] Comment on above: Order Comment: Speci men Type: BLOOD SPECIMENOrdering Facility: [facility] Address: [address] [place] [address] Performed By: #### 5 7021-8 ####[facility]OWNSHIPLIA [id number] [place] [address] [place] Eosinophils (Bld) [#/Vol] 10*3/uL Normal <0.46 [facility] Comment on above: Order Comment: Speci men Type: BLOOD SPECIMENOrdering Facility: [facility] Address: [address] [place] [address] Performed By: #### 5 7021-8 ####[facility]ITALWNCLIA [id number] [place] [address] [place] Eosinophils/100 WBC (Bld) 0.5 % Normal [facility] Comment on above: Order Comment: Speci men Type: BLOOD SPECIMENOrdering Facility: [facility] Address: [address] [place] [address] Performed By: #### 5 7021-8 ####[facility] [id number] [place] [address] [place] Erythrocyte distribution width (RBC) [Ratio] 14.1 % Normal 11.5-15.0 [facility] Comment on above: Order Comment: Speci men Type: BLOOD SPECIMENOrdering Facility: [facility] Address: [address] [place] [address] Performed By: #### 5 7021-8 ####[facility]HIPLIA [id number] [place] [address] [place] Hematocrit (Bld) [Volume fraction] 41.8 % Normal 39.0-51.0 [facility] Comment on above: Order Comment: Speci men Type: BLOOD SPECIMENOrdering Facility: [facility] Address: [address] [place], [place] [id number] Performed By: #### 5 7021-8 ####[facility]ENTERNCLIA [id number] [place] [address] [place] Hemoglobin (Bld) [Mass/Vol] 14.9 g/dL Normal 13.0-17.0 [facility] Comment on above: Order Comment: Speci men Type: BLOOD SPECIMENOrdering Facility: [facility] Address: [address] [place] [address] Performed By: #### 5 7021-8 ####[facility] ELLIOTTWJORDYLIA [id number] [place] [address] [place] Immature granulocytes (Bld) [#/Vol] 10*3/uL Normal <0.10 [facility] Comment on above: Order Comment: Speci men Type: BLOOD SPECIMENOrdering Facility: [facility] Address: [address] [place] [address] Performed By: #### 5 7021-8 ####[facility]OSPITALWJORDYLIA [id number] [place] [address] [place] Immature granulocytes/100 WBC (Bld) 0.5 % Normal [facility] Comment on above: Order Comment: Speci men Type: BLOOD SPECIMENOrdering Facility: [facility] Address: [address] [place] [address] Performed By: #### 5 7021-8 ####[facility]HIPLIA [id number] [place] [address] [place] Lymphocytes (Bld) [#/Vol] 1.78 10*3/uL Normal 1.00-4.00 [facility] Comment on above: Order Comment: Speci men Type: BLOOD SPECIMENOrdering Facility: [facility] Address: [address] [place] [address] Performed By: #### 5 7021-8 ####[facility] ELLIOTTWNCLIA [id number] [place] [address] [place] Lymphocytes/100 WBC (Bld) 42.1 % Normal [facility] Comment on above: Order Comment: Speci men Type: BLOOD SPECIMENOrdering Facility: [facility] Address: [address] [place] [address] Performed By: #### 5 7021-8 ####[facility] CENTERNCYOLANDA [id number] [place] [address] [place] MCH (RBC) [Entitic mass] 35.1 pg High 26.0-34.0 [facility] Comment on above: Order Comment: Speci men Type: BLOOD SPECIMENOrdering Facility: [facility] Address: [address] [place] [address] Performed By: #### 5 7021-8 ####[facility] [id number] [place] [address] [place] MCHC (RBC) [Mass/Vol] 35.6 g/dL Normal 30.5-36.0 [facility] Comment on above: Order Comment: Speci men Type: BLOOD SPECIMENOrdering Facility: [facility] Address: [address] [place] [address] Performed By: #### 5 7021-8 ####[facility] [id number] [place] [address] [place] MCV (RBC) [Entitic vol] 98.6 fL Normal 80.0-100.0 [facility] Comment on above: Order Comment: Speci men Type: BLOOD SPECIMENOrdering Facility: [facility] Address: [address] [place] [address] Performed By: #### 5 7021-8 ####[facility]IPLI [id number] [place] [address] [place] Monocytes (Bld) [#/Vol] 0.50 10*3/uL Normal <0.87 [facility] Comment on above: Order Comment: Speci men Type: BLOOD SPECIMENOrdering Facility: [facility] Address: [address] [place] [address] Performed By: #### 5 7021-8 ####[facility]ENTERNCLI [id number] [place] [address] [place] Monocytes/100 WBC (Bld) 11.8 % Normal [facility] Comment on above: Order Comment: Speci men Type: BLOOD SPECIMENOrdering Facility: [facility] Address: [address] [place] [address] Performed By: #### 5 7021-8 ####[facility]ERNCRIVERT[facility] [id number] [place] [address] [place] Neutrophils (Bld) [#/Vol] 1.89 10*3/uL Normal 1.45-7.50 [facility] Comment on above: Order Comment: Speci men Type: BLOOD SPECIMENOrdering Facility: [facility] Address: [address] [place] [address] Performed By: #### 5 7021-8 ####[facility] [id number] [place] [address] [place] Neutrophils/100 WBC (Bld) 44.6 % Normal [facility] Comment on above: Order Comment: Speci men Type: BLOOD SPECIMENOrdering Facility: [facility] Address: [address] [place] [address] Performed By: #### 5 7021-8 ####[facility] [id number] [place] [address] [place] Nucleated RBC (Bld) [#/Vol] 10*3/uL Normal <0.01 [facility] Comment on above: Order Comment: Speci men Type: BLOOD SPECIMENOrdering Facility: [facility] Address: [address] [place] [address] Performed By: #### 5 7021-8 ####[facility] [id number] [place] [address] [place] Nucleated RBC/100 WBC (Bld) [Ratio] 0.0 /100 WBC Normal [facility] Comment on above: Order Comment: Speci men Type: BLOOD SPECIMENOrdering Facility: [facility] Address: [address] [place] [address] Performed By: #### 5 7021-8 ####[facility] DAVIDNCLIA [id number] [place] [address] [place] Platelet mean volume (Bld) [Entitic vol] 8.7 fL Low 9.0-12.7 [facility] Comment on above: Order Comment: Speci men Type: BLOOD SPECIMENOrdering Facility: [facility] Address: [address] [place] [address] Performed By: #### 5 7021-8 ####[facility] CENTERNCOSCARA [id number] [place] [address] [place] Platelets (Bld) [#/Vol] 66 10*3/uL Low 150-400 [facility] Comment on above: Order Comment: Speci men Type: BLOOD SPECIMENOrdering Facility: [facility] Address: [address] [place] [address] Result Comment: No c lot detected. Performed By: #### 5 7021-8 ####[facility] CENTERJORDYA [id number] [place] [address] [place] RBC (Bld) [#/Vol] 4.24 10*6/uL Normal 4.20-6.00 [facility] Comment on above: Order Comment: Speci men Type: BLOOD SPECIMENOrdering Facility: [facility] Address: [address] [place] [address] Performed By: #### 5 7021-8 ####[facility]IA [id number] [place] [address] [place] WBC (Bld) [#/Vol] 4.23 10*3/uL Normal 3.70-11.00 [facility] Comment on above: Order Comment: Speci men Type: BLOOD SPECIMENOrdering Facility: [facility] Address: [address] [place] [address] Performed By: #### 5 7021-8 ####[facility] RACHANA BENNETTDAHIANA [id number] [place] [address] [facility] CNOVSPon 04-15-2025 CNOVSP Visit (SP) Office (H EMAWS) MACI HOWARD ([id number]) 1955 M Date Time Provider Department 04/15/25 9:10 AM STEPHANE NUÑEZ During your visit today, we recorded the following information about you: Temperature Pulse Blood pressure Weight 96.3 degrees 46/minute 114/76 97.1 kg Stephane Nuñez MD 04/15/2025 9:16 AM Signed (Elements copied from my note dated March 23, 2025, have been reviewed and updated where appropriate, and all reflect current assessment and medical decision making from today's encounter, April 15, 2025) HISTORY OF PRESENT ILLNESS: Maci Howard is a 69 year old male referred for evaluation of thrombocytopenia. He feels well, we reviewed his lab work results over time. Discussed possible reasons for thrombocytopenia. Had a liver US to evaluate elevated alk phos, coarse liver noted. Here for follow up, liver MRI negative, pleural effusion noted, he sees pulmonology May 2025. Platelets today 66 CLINICAL IMPRESSION: Thrombocytopenia, progressive,at this point thinking more c/w ITP, rest of cbc normal RECOMMENDATION/PLAN: 1. Will see back 3 weeks or so with cbc, if platelets drop below 50 plan trial steroids. Written and verbal health teaching given to patient, patient verbalizes understanding and agrees with treatment plan. PAST MEDICAL HISTORY Diagnosis Date Anxiety Asthma (HCC) Childhood. 10/2017 bronchoscopy/biopsy with inflammation, eosinophils. CAD (coronary artery disease) s/p SHANIQUA to LAD, seeing Dr. Llanos COPD (chronic obstructive pulmonary disease) (HCC) Depression Diaphragmatic hernia without mention of obstruction or gangrene Dyslipidemia Dysphagia Dyspnea With wheezing. Spirometry w/o obstruction 02/01 and 06/03. Has seen Dr. Pearl Esophagitis, unspecified Essential hypertension GERD (gastroesophageal reflux disease) History of CVA (cerebrovascular accident) 06/20/2014 mild History of prostate cancer s/p robotic prostatectomy Obesity (BMI 30.0-34.9) LESLY (obstructive sleep apnea) Consistently compliant with CPAP. PFO (patent foramen ovale) (HCC) Prostate cancer (HCC) 2012 s/p prostatectomy, Pick S/P prostatectomy PAST SURGICAL HISTORY Procedure Laterality Date ESOPHAGOGASTRODUODENOSCOPY TRANSORAL DIAGNOSTIC 05/01/2007 EGD ESOPHAGOGASTRODUODENOSCOPY TRANSORAL DIAGNOSTIC 03/21/2013 [facility] EGD PAST SURGICAL HISTORY OF submandibular gland removed PAST SURGICAL HISTORY OF 10/31/14 Robotic Prostatectomy PAST SURGICAL HISTORY OF 04/2017 SHANIQUA to LAD PAST SURGICAL HISTORY OF 06/2017 sinus surgery FAMILY HISTORY Problem Relation Age of Onset Heart Mother CAD. Hypertension Mother Cancer Father Prostate cancer. other (Other) Father Lower lobectomy, not cancerous. No Known Problems Sister No Known Problems Sister No Known Problems Sister No Known Problems Sister Cancer Paternal Grandfather Prostate Cancer. other (Other) Other No allergy, asthma, COPD. Social History Tobacco Use Smoking status: Former Current packs/day: 0.00 Average packs/day: 1 pack/day for 20.0 years (20.0 ttl pk-yrs) Types: Cigarettes Start date: 08/18/1969 Quit date: 08/18/1989 Years since quittin.6 Smokeless tobacco: Former Types: Snuff Quit date: 01/16/2017 Vaping Use Vaping status: Never Used Substance Use Topics Alcohol use: Yes Alcohol/week: 1.0 standard drink of alcohol Types: 1 Cans of Beer (12oz) per week Comment: rare-beer Drug use: No ALLERGIES: ALLERGIES Allergen Reactions [facility] [* CURRENT OUTPATIENT MEDICATIONS: losartan (COZAAR) 25 mg tablet Take 0.5 tablets by mouth once daily. pantoprazole DR (PROTONIX) 20 mg tablet TAKE 1 TABLET DAILY BEFORE BREAKFAST. TAKE ON AN EMPTYSTOMACH, 1/2 HOUR BEFORE A MEAL. atorvastatin (LIPITOR) 80 mg tablet Take 1 tablet by mouth once daily. clopidogrel (PLAVIX) 75 mg tablet Take 1 tablet by mouth once daily. nitroglycerin sublingual (NITROQUICK) 0.4 mg SL tablet Take 1 tablet by mouth every 5 minutes as needed for chest pain. FOR CHEST PAIN. IF NO PAIN RELIEF, CALL 911 NUCALA 100 mg/mL injection Inject 100 mg subcutaneously every 4 weeks. montelukast (SINGULAIR) 10 mg tablet Take 1 tablet by mouth daily at bedtime. CPAP albuterol HFA (VENTOLIN HFA) 90 mcg/actuation inhaler Inhale 2 Puffs as instructed every 4 hours as needed. albuterol sulfate (PROAIR HFA INHALATION) Inhale as instructed as needed. (Patient not taking: Reported on 03/23/2025) fluticasone (FLONASE) 50 mcg/actuation nasal spray Use 2 Sprays in each nostril once daily. Rinse mouth after use. (Patient not taking: Reported on 03/23/2025) aspirin 81 mg chewable tablet Take 81 mg by mouth once daily. REVIEW OF SYSTEMS: GENERAL: No fever, night sweats, weight loss or malaise. All other reviewed and negative other than HPI. PHYSICAL EXAMINATION: EVIN (more content not included)... Normal [facility] MRI LIVER WO/W IVCONon 04-01 MRI LIVER WO/W IVCON * * *Final Report* * * DATE OF EXAM: Apr 01 2025 8:56AM WRM [id number] - MRI LIVER WO/W IVCON / PROCEDURE REASON: Fatty (change of) liver, not elsewhere classified * * * * Physician Interpretation * * * * Examination: MRI LIVER WO/W IVCON History: Fatty (change of) liver, not elsewhere classified . Abnormal LFTs Comparison: Ultrasound 12/07/2024 TECHNIQUE: Routine liver mri protocol, including axial 3D gradient echo volume acquisition (VIBE) before and after Elucirem 10cc, axial gradient echo in- and opposed- phase, axial fast STIR, coronal HASTE. Image subtraction performed on 3D gradient echo images. RESULT: Liver: Right hepatic lobe cyst about 1.5 cm. Left hepatic lobe cyst about 1.5 cm. No suspicious hepatic lesion Biliary: Fundal gallbladder adenomyomatosis. Cholelithiasis. Common duct is normal in course and caliber. No filling defect within. No wall thickening, gallbladder distention, or pericholecystic fluid. Spleen: No mass. No splenomegaly. Pancreas: No mass or duct dilation. Pancreatic duct is normal in course and caliber Adrenals:No mass. Kidneys: Several renal cysts. No suspicious renal lesion or gross obstructive uropathy GI tract: No dilation or wall thickening. Lymph nodes: No abdominal lymphadenopathy. Mesentery/Peritoneum: No ascites or mass. Retroperitoneum: No mass. Vasculature: - Abdominal aorta: No aneurysm. - Celiac and SMA: Patent without stenosis. - Portal venous system (SMV, splenic vein, portal vein and branches): Patent. - Hepatic veins: Patent. Bones/Soft Tissues: Degenerative changes. Lower thorax: Small right pleural effusion and right basal airspace disease Localizer images: No additional findings. IMPRESSION: Small right pleural effusion and right basal airspace disease. Follow-up recommended. Incidental hepatic cysts. Cholelithiasis. Adenomyomatosis of the gallbladder fundus No suspicious mass or adenopathy in the visualized abdomen ACTIONABLE RESULT: FOLLOW-UP Acuity: Actionable Findings: Other Routing Code: Misc_1 Recommendation: Unlisted Recommendation (see report) Time Frame: At the discretion of the clinical team. COMMUNICATION: Results will be communicated with the ordering provider via Writer[employer] staff message or phone message by [facility] within 2 business days of report finalization. --END OF FINDING-- Implementation Consultant: VIOLETAB Transcribe Date/Time: Apr 07 2025 11:04A Dictated by : PETRA OVALLES MD This examination was interpreted and the report reviewed and electronically signed by: PETRA OVALLES MD on Apr 07 2025 11:22AM EST [id number] ACTIONABLE Invalid Interpretation Code [facility] CNOVSPon 03-23-2025 CNOVSP Visit (SP) Office (H EMAWS) MACI HOWARD ([id number]) 1955 M Date Time Provider Department 03/23/25 9:00 AM ABRAMOVICH, STEPHANE HEMAWS During your visit today, we recorded the following information about you: Pulse Blood pressure Weight Height 61/minute 132/84 99.8 kg 1.834 m Stephane Nuñez MD 03/23/2025 10:13 AM Signed HISTORY OF PRESENT ILLNESS: Maci Howard is a 69 year old male referred for evaluation of thrombocytopenia. He feels well, we reviewed his lab work results over time. Discussed possible reasons for thrombocytopenia. Had a liver US to evaluate elevated alk phos, coarse liver noted. CLINICAL IMPRESSION: Thrombocytopenia, concern for fatty liver RECOMMENDATION/PLAN: 1. Will obtain liver MRI to better characterize hepatic parenchyma 2. See back after that with cbc Written and verbal health teaching given to patient, patient verbalizes understanding and agrees with treatment plan. PAST MEDICAL HISTORY Diagnosis Date Anxiety Asthma (HCC) Childhood. 10/2017 bronchoscopy/biopsy with inflammation, eosinophils. CAD (coronary artery disease) s/p SHANIQUA to LAD, seeing Dr. Llanos COPD (chronic obstructive pulmonary disease) (HCC) Depression Diaphragmatic hernia without mention of obstruction or gangrene Dyslipidemia Dysphagia Dyspnea With wheezing. Spirometry w/o obstruction 02/01 and 06/03. Has seen Dr. Pearl Esophagitis, unspecified Essential hypertension GERD (gastroesophageal reflux disease) History of CVA (cerebrovascular accident) 06/20/2014 mild History of prostate cancer s/p robotic prostatectomy Obesity (BMI 30.0-34.9) LESLY (obstructive sleep apnea) Consistently compliant with CPAP. PFO (patent foramen ovale) (HCC) Prostate cancer (HCC) 2012 s/p prostatectomy, [place] S/P prostatectomy PAST SURGICAL HISTORY Procedure Laterality Date ESOPHAGOGASTRODUODENOSCOPY TRANSORAL DIAGNOSTIC 05/01/2007 EGD ESOPHAGOGASTRODUODENOSCOPY TRANSORAL DIAGNOSTIC 03/21/2013 [facility] EGD PAST SURGICAL HISTORY OF submandibular gland removed PAST SURGICAL HISTORY OF 10/31/14 Robotic Prostatectomy PAST SURGICAL HISTORY OF 04/2017 SHANIQUA to LAD PAST SURGICAL HISTORY OF 06/2017 sinus surgery FAMILY HISTORY Problem Relation Age of Onset Heart Mother CAD. Hypertension Mother Cancer Father Prostate cancer. other (Other) Father Lower lobectomy, not cancerous. No Known Problems Sister No Known Problems Sister No Known Problems Sister No Known Problems Sister Cancer Paternal Grandfather Prostate Cancer. other (Other) Other No allergy, asthma, COPD. Social History Tobacco Use Smoking status: Former Current packs/day: 0.00 Average packs/day: 1 pack/day for 20.0 years (20.0 ttl pk-yrs) Types: Cigarettes Start date: 08/18/1969 Quit date: 08/18/1989 Years since quittin.6 Smokeless tobacco: Former Types: Snuff Quit date: 01/16/2017 Vaping Use Vaping status: Never Used Substance Use Topics Alcohol use: Yes Alcohol/week: 1.0 standard drink of alcohol Types: 1 Cans of Beer (12oz) per week Comment: rare-beer Drug use: No ALLERGIES: ALLERGIES Allergen Reactions [facility] [* CURRENT OUTPATIENT MEDICATIONS: losartan (COZAAR) 25 mg tablet Take 0.5 tablets by mouth once daily. pantoprazole DR (PROTONIX) 20 mg tablet TAKE 1 TABLET DAILY BEFORE BREAKFAST. TAKE ON AN EMPTYSTOMACH, 1/2 HOUR BEFORE A MEAL. atorvastatin (LIPITOR) 80 mg tablet Take 1 tablet by mouth once daily. clopidogrel (PLAVIX) 75 mg tablet Take 1 tablet by mouth once daily. nitroglycerin sublingual (NITROQUICK) 0.4 mg SL tablet Take 1 tablet by mouth every 5 minutes as needed for chest pain. FOR CHEST PAIN. IF NO PAIN RELIEF, CALL 911 NUCALA 100 mg/mL injection Inject 100 mg subcutaneously every 4 weeks. montelukast (SINGULAIR) 10 mg tablet Take 1 tablet by mouth daily at bedtime. CPAP albuterol HFA (VENTOLIN HFA) 90 mcg/actuation inhaler Inhale 2 Puffs as instructed every 4 hours as needed. albuterol sulfate (PROAIR HFA INHALATION) Inhale as instructed as needed. (Patient not taking: Reported on 03/23/2025) fluticasone (FLONASE) 50 mcg/actuation nasal spray Use 2 Sprays in each nostril once daily. Rinse mouth after use. (Patient not taking: Reported on 03/23/2025) aspirin 81 mg chewable tablet Take 81 mg by mouth once daily. REVIEW OF SYSTEMS: GENERAL: No fever, night sweats, weight loss or malaise. All other reviewed and negative other than HPI. PHYSICAL EXAMINATION: VITAL SIGNS: BP 132/84 Pulse 61 Ht 6' .205 (1.83m) Wt 220 lb (99.8kg) SpO2 99% BMI 29.67 kg/(m2). GENERAL APPEARANCE: Well appearing, in no acute distress, alert and oriented x3, well-hydrated, well nourished. I spent a total of 45 minutes on the date of the service which included preparing to see the patient, [id number] patient care, completing clinical docu (more content not included)... Normal [facility] CNPNon 03-23-2025 CNPN Telephone (HEMAWS) MACI HOWARD ([id number]) 1955 M Date Time Provider Department 03/23/25 STEPHANE NUÑEZ During your visit today, we recorded the following information about you: Allergies As of Date: 03/23/2025 Noted Allergy Reaction PARAFOPedro FORTE DSC (CHLORZOXAZONE) 03/11/2006 Date Reviewed: 03/23/2025 Reviewed by: Randa Goel MA - Fully Assessed Prescriptions as of 03/23/2025 - losartan (COZAAR) 25 mg tablet Take 0.5 tablets by mouth once daily. - pantoprazole DR (PROTONIX) 20 mg tablet TAKE 1 TABLET DAILY BEFORE BREAKFAST. TAKE ON AN EMPTYSTOMACH, 1/2 HOUR BEFORE A MEAL. - iv contrast (will be provided with radiology test) MRI Liver Inject, intravenously, once for 1 dose. No IV access, insert saline lock prior to the beginning of sedation, infusion, injection of imaging exam. Discontinue saline lock post exam. If Pt. has a central line or IVAD, may access for administration according to line specific nursing protocol. Once exam is complete flush line and de-access according to line specific nursing protocol in the MR contrast administration guidelines link. - atorvastatin (LIPITOR) 80 mg tablet Take 1 tablet by mouth once daily. - clopidogrel (PLAVIX) 75 mg tablet Take 1 tablet by mouth once daily. - nitroglycerin sublingual (NITROQUICK) 0.4 mg SL tablet Take 1 tablet by mouth every 5 minutes as needed for chest pain. FOR CHEST PAIN. IF NO PAIN RELIEF, CALL 911 - albuterol sulfate (PROAIR HFA INHALATION) Inhale as instructed as needed. - NUCALA 100 mg/mL injection Inject 100 mg subcutaneously every 4 weeks. - fluticasone (FLONASE) 50 mcg/actuation nasal spray Use 2 Sprays in each nostril once daily. Rinse mouth after use. - montelukast (SINGULAIR) 10 mg tablet Take 1 tablet by mouth daily at bedtime. - CPAP - albuterol HFA (VENTOLIN HFA) 90 mcg/actuation inhaler Inhale 2 Puffs as instructed every 4 hours as needed. - aspirin 81 mg chewable tablet Take 81 mg by mouth once daily. Problem List As Of Date 03/23/2025 Noted Resolved DYSPHAGIA [787.2] Esophagitis, unspecified [K20.90] [...] [Z85.46] 02/19/2023 Chronic bronchitis (HCC) [J42] 02/19/2023 Obesity, Class I, BMI 30-34.9 [E66.811] 05/25/2024 COPD (chronic obstructive pulmonary disease) (H* Encounter Status:Closed by HOLDEN PATEL on 03/23/25 Normal [facility] CBC W Auto Differential pane l (Bld)on 03-02-2025 Basophils (Bld) [#/Vol] 10*3/uL Normal <0.11 [facility] Comment on above: Order Comment: Speci men Type: BLOOD SPECIMENOrdering Facility: [facility] Address: [address] [place] [address] Performed By: #### 5 7021-8 ####[facility] CENTERDAHIANA [id number] [place] [address] [place] Basophils/100 WBC (Bld) 0.5 % Normal [facility] Comment on above: Order Comment: Speci men Type: BLOOD SPECIMENOrdering Facility: [facility] Address: [address] [place] [address] Performed By: #### 5 7021-8 ####[facility] CENTERNCOSCARA [id number] [place] [address] [place] Differential cell count method Nom (Bld) Auto Normal [facility] Comment on above: Order Comment: Speci men Type: BLOOD SPECIMENOrdering Facility: [facility] Address: [address] [place] [address] Performed By: #### 5 7021-8 ####[facility] CENTERAYDENA [id number] [place] [address] [place] Eosinophils (Bld) [#/Vol] 0.03 10*3/uL Normal <0.46 [facility] Comment on above: Order Comment: Speci men Type: BLOOD SPECIMENOrdering Facility: [facility] Address: [address] [place] [address] Performed By: #### 5 7021-8 ####[facility] [id number] [place] [address] [place] Eosinophils/100 WBC (Bld) 0.7 % Normal [facility] Comment on above: Order Comment: Speci men Type: BLOOD SPECIMENOrdering Facility: [facility] Address: [address] [place] [address] Performed By: #### 5 7021-8 ####[facility] [id number] [place] [address] [place] Erythrocyte distribution width (RBC) [Ratio] 13.7 % Normal 11.5-15.0 [facility] Comment on above: Order Comment: Speci men Type: BLOOD SPECIMENOrdering Facility: [facility] Address: [address] [place] [address] Performed By: #### 5 7021-8 ####[facility] [id number] [place] [address] [place] Hematocrit (Bld) [Volume fraction] 42.4 % Normal 39.0-51.0 [facility] Comment on above: Order Comment: Speci men Type: BLOOD SPECIMENOrdering Facility: [facility] Address: [address] [place] [address] Performed By: #### 5 7021-8 ####[facility]NS[facility]IPLIA [id number] [place] [address] [place] Hemoglobin (Bld) [Mass/Vol] 14.9 g/dL Normal 13.0-17.0 [facility] Comment on above: Order Comment: Speci men Type: BLOOD SPECIMENOrdering Facility: [facility] Address: [address] [place] [address] Performed By: #### 5 7021-8 ####[facility]NSHIPLIA [id number] [place] [address] [place] Immature granulocytes (Bld) [#/Vol] 10*3/uL Normal <0.10 [facility] Comment on above: Order Comment: Speci men Type: BLOOD SPECIMENOrdering Facility: [facility] Address: [address] [place] [address] Performed By: #### 5 7021-8 ####[facility] [id number] [place] [address] [place] Immature granulocytes/100 WBC (Bld) 0.2 % Normal [facility] Comment on above: Order Comment: Speci men Type: BLOOD SPECIMENOrdering Facility: [facility] Address: [address] [place] [address] Performed By: #### 5 7021-8 ####[facility] [id number] [place] [address] [place] Lymphocytes (Bld) [#/Vol] 1.63 10*3/uL Normal 1.00-4.00 [facility] Comment on above: Order Comment: Speci men Type: BLOOD SPECIMENOrdering Facility: [facility] Address: [address] [place] [address] Performed By: #### 5 7021-8 ####[facility] [id number] [place] [address] [place] Lymphocytes/100 WBC (Bld) 40.2 % Normal [facility] Comment on above: Order Comment: Speci men Type: BLOOD SPECIMENOrdering Facility: [facility] Address: [address] [place], [place] [address] Performed By: #### 5 7021-8 ####[facility] MILLKARINEWNCLIA [id number] [place] [address] [place] [facility] MCH (RBC) [Entitic mass] 34.0 pg Normal 26.0-34.0 [facility] Comment on above: Order Comment: Speci men Type: BLOOD SPECIMENOrdering Facility: [facility] Address: [address] [place] [address] Performed By: #### 5 7021-8 ####[facility]ENTERNCLIA [id number] [place] [address] [place] MCHC (RBC) [Mass/Vol] 35.1 g/dL Normal 30.5-36.0 [facility] Comment on above: Order Comment: Speci men Type: BLOOD SPECIMENOrdering Facility: [facility] Address: [address] [place] [address] Performed By: #### 5 7021-8 ####[facility]ENTERNCLIA [id number] [place] [address] [place] MCV (RBC) [Entitic vol] 96.8 fL Normal 80.0-100.0 [facility] Comment on above: Order Comment: Speci men Type: BLOOD SPECIMENOrdering Facility: [facility] Address: [address] [place] [id number] Performed By: #### 5 7021-8 ####[facility]ENTERNCLIA [id number] [place] [address] [place] Monocytes (Bld) [#/Vol] 0.47 10*3/uL Normal <0.87 [facility] Comment on above: Order Comment: Speci men Type: BLOOD SPECIMENOrdering Facility: [facility] Address: [address] [place] [address] Performed By: #### 5 7021-8 ####[facility] [id number] [place] [address] [place] Monocytes/100 WBC (Bld) 11.6 % Normal [facility] Comment on above: Order Comment: Speci men Type: BLOOD SPECIMENOrdering Facility: [facility] Address: [address] [place] [address] Performed By: #### 5 7021-8 ####[facility] [id number] [place] [address] [place] Neutrophils (Bld) [#/Vol] 1.89 10*3/uL Normal 1.45-7.50 [facility] Comment on above: Order Comment: Speci men Type: BLOOD SPECIMENOrdering Facility: [facility] Address: [address] [place] [address] Performed By: #### 5 7021-8 ####[facility] [id number] [place] [address] [place] Neutrophils/100 WBC (Bld) 46.8 % Normal [facility] Comment on above: Order Comment: Speci men Type: BLOOD SPECIMENOrdering Facility: [facility] Address: [address] [place] [address] Performed By: #### 5 7021-8 ####[facility] [id number] [place] [address] [place] Nucleated RBC (Bld) [#/Vol] 10*3/uL Normal <0.01 [facility] Comment on above: Order Comment: Speci men Type: BLOOD SPECIMENOrdering Facility: [facility] Address: [address] [place] [address] Performed By: #### 5 7021-8 ####[facility] [id number] [place] [address] [place] Nucleated RBC/100 WBC (Bld) [Ratio] 0.0 /100 WBC Normal [facility] Comment on above: Order Comment: Speci men Type: BLOOD SPECIMENOrdering Facility: [facility] Address: [address] [place] [address] Performed By: #### 5 7021-8 ####[facility] ELLIOTTTOWNCLIA [id number] [place] [address] [place] Platelet mean volume (Bld) [Entitic vol] 8.7 fL Low 9.0-12.7 [facility] Comment on above: Order Comment: Speci men Type: BLOOD SPECIMENOrdering Facility: [facility] Address: [address] [place] [address] Performed By: #### 5 7021-8 ####[facility] CENTERNCYOLANDA [id number] [place] [address] [place] Platelets (Bld) [#/Vol] 86 10*3/uL Low 150-400 [facility] Comment on above: Order Comment: Speci men Type: BLOOD SPECIMENOrdering Facility: [facility] Address: [address] [place] [address] Result Comment: No c lot detected. Performed By: #### 5 7021-8 ####[facility]ENTERNCLIA [id number] [place] [address] [place] RBC (Bld) [#/Vol] 4.38 10*6/uL Normal 4.20-6.00 [facility] Comment on above: Order Comment: Speci men Type: BLOOD SPECIMENOrdering Facility: [facility] Address: [address] [place] [address] Performed By: #### 5 7021-8 ####[facility]ITALWNCLIA [id number] [place] [address] [place] WBC (Bld) [#/Vol] 4.05 10*3/uL Normal 3.70-11.00 [facility] Comment on above: Order Comment: Speci men Type: BLOOD SPECIMENOrdering Facility: [facility] Address: [address] [place] [address] Performed By: #### 5 7021-8 ####[facility] [id number] [place] [address] [place] LDH SerPl-cCncon 03-02-2025 LDH [Catalytic activity/Vol] 246 U/L High 135-225 [facility] Comment on above: Order Comment: David olivo Type: BLOOD SPECIMENOrdering Facility: [facility] Address: [address] [place] [address] Result Comment: Hemo lysis present. The origin of the hemolysis, in vitro versus an in vivo hemolytic process, cannot be distinguished via this assay alone. In vitro hemolysis may lead to non-physiological (spurious) elevation in lactate dehydrogenase (LDH) results. The result should be interpreted in context of the clinical setting and other test results. Suggest reorder as clinically indicated. Performed By: #### 2 532-0 ####[facility] [id number] [place] [address] [place] PT panel Coag (PPP)on 2024 INR Coag (PPP) [Relative time] 1.0 {INR} Normal 0.9-1.3 [facility] Comment on above: Order Comment: David olivo Type: BLOOD SPECIMENOrdering Facility: [facility] Address: [address] [place] [address] Result Comment: Evin min K Antagonist (VKA) Therapeutic Range: INR 2 to 3 (Target INR of 2.5) Note: For patients treated with VKA drugs, such as warfarin, the [employer] [employer] 2012 Guideline recommends a therapeutic INR range of 2 to 3 (target INR of 2.5). This recommendation includes high-risk patients with antiphospholipid syndrome with previous arterial or venous thromboembolism, current-generation mechanical or bioprosthetic aortic heart valve replacement. Note: Patients with mechanical aortic valve replacement and additional risk factors for thromboembolic events (atrial fibrillation, previous thromboembolism, LV dysfunction, hypercoagulable conditions) or an older generation mechanical AVR (i.e., ball in-Cage) or any mechanical MVR should have a INR therapeutic range of 2.5 to 3.5 (target INR of 3). Page GH, et al. Chest 2012, 141:7S-47S Luis RA, et al. [facility] 2017, 70: 252-289 Performed By: #### 3 4528-0, 35757-4 ####[facility]ENTERNCLIA [id number] [place] [address] [place] PT Coag (PPP) [Time] 10.5 s Normal <13.1 [facility] Comment on above: Order Comment: Speci geovani Type: BLOOD SPECIMENOrdering Facility: [facility] Address: [address] [place] [address] Performed By: #### 3 4528-0, 17982-6 ####[facility]ENTERNCLIA [id number] [place] [address] [place] aPTT PPPon 03-02-2025 aPTT Coag (PPP) [Time] 25.6 s Normal 23.0-32.4 [facility] Comment on above: Order Comment: David olivo Type: BLOOD SPECIMENOrdering Facility: [facility] Address: [address] [place] [address] Performed By: #### 3 4528-0, 28316-3 ####[facility]IPLIA [id number] [address] [place] CNPNon 02-28-2025 CNPN Telephone (JO) MACI HOWARD ([id number]) 1955 Date Time Provider Department 02/28/25 STEPHANE NUÑEZ During your visit today, we recorded the following information about you: Radha Cooney 02/28/2025 2:49 PM Signed Patient is being referred for thrombocytopenia. Patients platelets are 86. Can someone review and advise? Silvio Novoa RN 03/01/2025 9:19 AM Signed See [employer] message. SCOTT Dorantes Angela 03/04/2025 11:31 AM Signed Spouse called back to see if patient can be scheduled. Please advise Rosario Li LPN 03/04/2025 12:14 PM Addendum See [address] message. OK to schedule. Allergies As of Date: 02/28/2025 Noted Allergy Reaction PARAFON FORTE DSC (CHLORZOXAZONE) 03/11/2006 Date Reviewed: 11/23/2024 Reviewed by: Clara Rivera LPN - Fully Assessed Reason for Visit: New Patient [172] Primary Visit Diagnosis:Thrombocytopenia [D69.6] Order(s):COMPLETE BLOOD COUNT AND DIFFERENTIAL [SQCBCDIF] Order #: [id number] FUTURE PROTHROMBIN TIME [SQPT] Order #: [id number] FUTURE ACTIVATED PARTIAL THROMBOPLASTIN TIME [SQPTT] Order #: [id number] FUTURE LACTATE DEHYDROGENASE [SQLD6] Order #: [id number] FUTURE Prescriptions as of 03/04/2025 - clopidogrel (PLAVIX) 75 mg tablet Take 1 tablet by mouth once daily. - nitroglycerin sublingual (NITROQUICK) 0.4 mg SL tablet Take 1 tablet by mouth every 5 minutes as needed for chest pain. FOR CHEST PAIN. IF NO PAIN RELIEF, CALL 911 - pantoprazole DR (PROTONIX) 20 mg tablet TAKE 1 TABLET DAILY BEFORE BREAKFAST. TAKE ON AN EMPTYSTOMACH, 1/2 HOUR BEFORE A MEAL. - losartan (COZAAR) 25 mg tablet Take 0.5 tablets by mouth once daily. - atorvastatin (LIPITOR) 80 mg tablet Take [...] tablet by mouth daily at bedtime. - CPAP - albuterol HFA (VENTOLIN HFA) 90 mcg/actuation inhaler Inhale 2 Puffs as instructed every 4 hours as needed. - aspirin 81 mg chewable tablet Take 81 mg by mouth once daily. Problem List As Of Date 02/28/2025 Noted Resolved DYSPHAGIA [787.2] Esophagitis, unspecified [K20.90] [...] [Z85.46] 02/19/2023 Chronic bronchitis (HCC) [J42] 02/19/2023 Obesity, Class I, BMI 30-34.9 [E66.811] 05/25/2024 COPD (chronic obstructive pulmonary disease) (H* Encounter Status:Closed by SILVIO NOVOA on 03/01/25 Normal [facility] CBC W Auto Differential pane l (Bld)on 02-24-2025 Basophils (Bld) [#/Vol] 10*3/uL Normal <0.11 [facility] Comment on above: Order Comment: Speci men Type: BLOOD SPECIMENOrdering Facility: [facility] Address: [address] [place] [address] Performed By: #### 5 7021-8 ####[facility] [id number] [place] [address] [place] Basophils/100 WBC (Bld) 0.4 % Normal [facility] Comment on above: Order Comment: Speci men Type: BLOOD SPECIMENOrdering Facility: [facility] Address: [address] [place] [address] Performed By: #### 5 7021-8 ####[facility] [id number] [place] [address] [place] Differential cell count method Nom (Bld) Auto Normal [facility] Comment on above: Order Comment: Speci men Type: BLOOD SPECIMENOrdering Facility: [facility] Address: [address] [place] [address] Performed By: #### 5 7021-8 ####[facility] [id number] [place] [address] [place] Eosinophils (Bld) [#/Vol] 10*3/uL Normal <0.46 [facility] Comment on above: Order Comment: Speci men Type: BLOOD SPECIMENOrdering Facility: [facility] Address: [address] [place] [address] Performed By: #### 5 7021-8 ####[facility] ELLIOTTNANI [id number] [place] [address] [place] Eosinophils/100 WBC (Bld) 0.4 % Normal [facility] Comment on above: Order Comment: Speci men Type: BLOOD SPECIMENOrdering Facility: [facility] Address: [address] [place] [address] Performed By: #### 5 7021-8 ####[facility] ELLIOTTLONG BEACHDAHIANA [id number] [place] [address] [place] Erythrocyte distribution width (RBC) [Ratio] 13.6 % Normal 11.5-15.0 [facility] Comment on above: Order Comment: Speci men Type: BLOOD SPECIMENOrdering Facility: [facility] Address: [address] [place] [address] Performed By: #### 5 7021-8 ####[facility] CENTERJORDYOSCARA [id number] [place] [address] [place] Hematocrit (Bld) [Volume fraction] 40.8 % Normal 39.0-51.0 [facility] Comment on above: Order Comment: Speci men Type: BLOOD SPECIMENOrdering Facility: [facility] Address: [address] [place] [address] Performed By: #### 5 7021-8 ####[facility]ENTERNCLIA [id number] [place] [address] [place] Hemoglobin (Bld) [Mass/Vol] 14.7 g/dL Normal 13.0-17.0 [facility] Comment on above: Order Comment: Speci men Type: BLOOD SPECIMENOrdering Facility: [facility] Address: [address] [place] [address] Performed By: #### 5 7021-8 ####[facility] MILLWNCLIA [id number] [place] [address] [place] Immature granulocytes (Bld) [#/Vol] 10*3/uL Normal <0.10 [facility] Comment on above: Order Comment: Speci men Type: BLOOD SPECIMENOrdering Facility: [facility] Address: [address] [place] [address] Performed By: #### 5 7021-8 ####[facility] T[facility]NSHIPLIA [id number] [place] [address] [place] Immature granulocytes/100 WBC (Bld) 0.4 % Normal [facility] Comment on above: Order Comment: Speci men Type: BLOOD SPECIMENOrdering Facility: [facility] Address: [address] [place] [address] Performed By: #### 5 7021-8 ####[facility] [id number] [place] [address] [place] Lymphocytes (Bld) [#/Vol] 1.70 10*3/uL Normal 1.00-4.00 [facility] Comment on above: Order Comment: Speci men Type: BLOOD SPECIMENOrdering Facility: [facility] Address: [address] [place] [address] Performed By: #### 5 7021-8 ####[facility]HIPLIA [id number] [place] [address] [place] Lymphocytes/100 WBC (Bld) 37.7 % Normal [facility] Comment on above: Order Comment: Speci men Type: BLOOD SPECIMENOrdering Facility: [facility] Address: [address] [place] [address] Performed By: #### 5 7021-8 ####[facility]HIPLIA [id number] [place] [address] [place] MCH (RBC) [Entitic mass] 34.6 pg High 26.0-34.0 [facility] Comment on above: Order Comment: Speci men Type: BLOOD SPECIMENOrdering Facility: [facility] Address: [address] [place] [address] Performed By: #### 5 7021-8 ####[facility] [id number] [place] [address] [place] MCHC (RBC) [Mass/Vol] 36.0 g/dL Normal 30.5-36.0 [facility] Comment on above: Order Comment: Speci men Type: BLOOD SPECIMENOrdering Facility: [facility] Address: [address] [place], [place] [address] Performed By: #### 5 7021-8 ####[facility] [id number] [place] [address] [place] MCV (RBC) [Entitic vol] 96.0 fL Normal 80.0-100.0 [facility] Comment on above: Order Comment: Speci men Type: BLOOD SPECIMENOrdering Facility: [facility] Address: [address] [place] [address] Performed By: #### 5 7021-8 ####[facility] [id number] [place] [address] [place] Monocytes (Bld) [#/Vol] 0.50 10*3/uL Normal <0.87 [facility] Comment on above: Order Comment: Speci men Type: BLOOD SPECIMENOrdering Facility: [facility] Address: [address] [place] [address] Performed By: #### 5 7021-8 ####[facility] [id number] [place] [address] [place] Monocytes/100 WBC (Bld) 11.1 % Normal [facility] Comment on above: Order Comment: Speci men Type: BLOOD SPECIMENOrdering Facility: [facility] Address: [address] [place] [address] Performed By: #### 5 7021-8 ####[facility] MILLTOWNCLIA [id number] [place] [address] [place] Neutrophils (Bld) [#/Vol] 2.25 10*3/uL Normal 1.45-7.50 [facility] Comment on above: Order Comment: Speci men Type: BLOOD SPECIMENOrdering Facility: [facility] Address: [address] [place] [address] Performed By: #### 5 7021-8 ####[facility] MILLWNCLIA [id number] [place] [address] [place] Neutrophils/100 WBC (Bld) 50.0 % Normal [facility] Comment on above: Order Comment: Speci men Type: BLOOD SPECIMENOrdering Facility: [facility] Address: [address] [place] [address] Performed By: #### 5 7021-8 ####[facility]ENTERNCLIA [id number] [place] [address] [place] Nucleated RBC (Bld) [#/Vol] 10*3/uL Normal <0.01 [facility] Comment on above: Order Comment: Speci men Type: BLOOD SPECIMENOrdering Facility: [facility] Address: [address] [place] [address] Performed By: #### 5 7021-8 ####[facility] MILLTOWNCLIA [id number] [place] [address] [place] Nucleated RBC/100 WBC (Bld) [Ratio] 0.0 /100 WBC Normal [facility] Comment on above: Order Comment: Speci men Type: BLOOD SPECIMENOrdering Facility: [facility] Address: [address] [place] [address] Performed By: #### 5 7021-8 ####[facility] [id number] [place] [address] [place] Platelet mean volume (Bld) [Entitic vol] 8.8 fL Low 9.0-12.7 [facility] Comment on above: Order Comment: Speci men Type: BLOOD SPECIMENOrdering Facility: [facility] Address: [address] [place] [address] Performed By: #### 5 7021-8 ####[facility] [id number] [place] [address] [place] Platelets (Bld) [#/Vol] 86 10*3/uL Low 150-400 [facility] Comment on above: Order Comment: Speci men Type: BLOOD SPECIMENOrdering Facility: [facility] Address: [address] [place] [address] Result Comment: No c lot detected. Performed By: #### 5 7021-8 ####[facility] [id number] [place] [address] [place] RBC (Bld) [#/Vol] 4.25 10*6/uL Normal 4.20-6.00 [facility] Comment on above: Order Comment: Speci men Type: BLOOD SPECIMENOrdering Facility: [facility] Address: [address] [place] [address] Performed By: #### 5 7021-8 ####[facility]HIPLIA [id number] [place] [address] [place] WBC (Bld) [#/Vol] 4.51 10*3/uL Normal 3.70-11.00 [facility] Comment on above: Order Comment: Speci men Type: BLOOD SPECIMENOrdering Facility: [facility] Address: [address] [place] [address] Performed By: #### 5 7021-8 ####[facility] CENTERJORDYLIJessica [id number] [place] [address] [place] Cardiology Visit Reporton Cardiology Visit Report [facility] [address] [place] [address] OFFICE VISIT Date of Service: 01/28/25 MR#: [id number] Acct: [id number] Name: MACI HOWARD Rep #: [id number] : 1955 Provider: Dr. Moy noyola MD Age/Sex: 69/M Location: [facility] Status: Signed HPI HPI History of Present Illness Details: Patient is a pleasant 69-year-old white male that comes in for monitor of his cardiovascular status. He has a history of coronary artery disease with stenting to his LAD in 2016, hyperlipidemia, and hypertension and quality of life limiting history of COPD. He was evaluated in the Emergency Department on 04/09/2024 for palpitations and heart rate of 35 bpm. He was noted to have bigeminy and heart rate of 71 bpm. Laboratory testing was negative, including high sensitive troponin x 2. Potassium was 3.5. He had a stress test in August 2023 that was negative for ischemia. The patient reports that he is pretty much at baseline. He is not able to walk up hills without significant dyspnea on exertion but this is unchanged for several years. He has had no drop-off in his exercise tolerance denies any chest tightness or squeezing. He did not have any anginal symptoms prior to his stenting in 2016. It was found incidentally on a workup after a TIA. Patient's lipids are monitored through the primary service. He is on intensive statin therapy. His blood pressure is well-controlled in the office today. Patient denies any PND orthopnea denies any significant lower extremity edema today. He is up and about with regular activities does his ADLs without any restrictions. 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 Accompanied by: Self Is patient in pain?: No Allergies No Known Allergies Allergy (Verified 01/28/25 08:01) Medications ???Medication ???Instructions ???Recorded ???Confirmed ???Type clopidogrel 75 mg tablet 75 mg PO DINNER antiplatelet/heart 03/11/17 01/28/25 History health pantoprazole 20 mg tablet,delayed 20 mg PO DINNER gerd 03/11/17 History release nitroglycerin 0.4 mg sublingual 0.4 mg sublingual Q5M PRN Chest 01/28/25 Rx tablet Pain #25 tabs mepolizumab 100 mg/mL subcutaneous 100 mg subcut Q4W 08/30/2001/28 History auto-injector atorvastatin 80 mg tablet 80 mg PO QDAY 01/29/24 01/28/25 Hi story losartan 25 mg tablet 12.5 mg PO QDAY 01/29/24 01/28/25 History albuterol sulfate 90 mcg/actuation 2 puff inhalation Q6H PRN 01/28/25 History aerosol inhaler shortness of breath or wheezing montelukast 10 mg tablet 10 mg PO DAILY@1700 #90 tabs 01/0401/28/25 Rx Ejection fraction %: 55 Have you fallen in the past year?: No PFSH Medical History Pre-operative cardiovascular examination Abnormal CT scan, chest Asthma-COPD overlap syndrome Bronchiectasis Severe persistent asthma not dependent on systemic steroids Essential hypertension CVA (cerebral vascular accident) Atherosclerotic heart disease of [place] coronary artery without angina pectoris Diastolic dysfunction URI (upper respiratory infection) Wheezing Dyspnea LESLY (obstructive sleep apnea) Pneumonia HTN (hypertension) Sinusitis Acute exacerbation of COPD with asthma Hyperlipidemia Chest pain Obesity (BMI 30.0-34.9) COPD (chronic obstructive pulmonary disease) Asthma Gastric reflux Prostate cancer Patent foramen ovale Surgical History History of left heart catheterization (LHC) History of vasectomy History of prostate surgery Postsurgical percutaneous transluminal coronary angioplasty (PTCA) status ( 05/15/17) Presence of stent in coronary artery ( 05/15/17) Family History Father Hypertension Prostate cancer Mother CAD (coronary artery disease) Social History household members: spouse housing: house Smoking Status: Former smoker how long ago did patient quit smokin-30 years ago second hand exposure: Yes alcohol intake: current alcohol intake frequency: a few times a month substance use type: does not use caffeine: Yes Type: coffee Number of servings: 2 what type of physical activity do you participate in: none frequency: does not exercise seatbelt use: always ROS Const Const: Negative for fatigue, weakness, headache(s), daytime (more content not included)... Normal [facility] US ABD RIGHT UPPER QUADRANTo n 12-07-2024 US ABD RIGHT UPPER QUADRANT * * *Final Report* * * DATE OF EXAM: Dec 07 2024 8:02AM WRU 1032 - US ABD RIGHT UPPER QUADRANT / PROCEDURE REASON: Elevated alkaline phosphatase level * * * * Physician Interpretation * * * * EXAMINATION: RIGHT UPPER QUADRANT ULTRASOUND CLINICAL HISTORY: Elevated alkaline phosphatase TECHNIQUE: Sonography of the right upper quadrant was performed. Images were obtained and stored in a permanent archive. MQ: URUQ_2 COMPARISON: None. RESULT: Visualization is suboptimal due to bowel gas and patient build Pancreas: Normal sonographic appearance. Portions obscured: tail Liver: Portions of the right and left lobe are suboptimally seen due to overlying bowel gas Echotexture: Coarse Echogenicity: Normal Surface contour: Smooth Lesions: None. Biliary: No intrahepatic biliary duct dilation. CBD: 0.5 cm at the hilum. Gallbladder: Normal caliber -Contents: Cholelithiasis. Gallbladder sludge. Nonmobile stone in the gallbladder neck of 1.8 cm. -Wall: Normal -Other: No pericholecystic fluid. Right Kidney: No hydronephrosis. Ascites: None. IMPRESSION: Cholelithiasis and gallbladder sludge. Common duct is normal in caliber. Visualization is suboptimal as described. Otherwise normal sonographic appearance of the right upper quadrant. Implementation Consultant: ROBY Transcribe Date/Time: Dec 07 2024 8:39A Dictated by : PETRA OVALLES MD This examination was interpreted and the report reviewed and electronically signed by: PETRA OVALLES MD on Dec 07 2024 8:59AM EST [id number] Normal [facility] US Abdomen RUQon 12-07-2024 IMPRESSION: Cholelithiasis and gallbladder sludge. Common duct is normal in caliber. Visualization is suboptimal as described. Otherwise normal sonographic appearance of the right upper quadrant. Implementation Consultant: ROBY Transcribe Date/Time: Dec 07 2024 8:39A Dictated by : PETRA OVALLES MD This examination was interpreted and the report reviewed and electronically signed by: PETRA OVALLES MD on Dec 07 2024 8:59AM EST DIVISION OF RADIOLOGY * * *Final Report* * * DATE OF EXAM: Dec 07 2024 8:02AM WRU 1032 - US ABD RIGHT UPPER QUADRANT / PROCEDURE REASON: Elevated alkaline phosphatase level * * * * Physician Interpretation * * * * EXAMINATION: RIGHT UPPER QUADRANT ULTRASOUND CLINICAL HISTORY: Elevated alkaline phosphatase TECHNIQUE: Sonography of the right upper quadrant was performed. Images were obtained and stored in a permanent archive. MQ: URUQ_2 COMPARISON: None. RESULT: Visualization is suboptimal due to bowel gas and patient build Pancreas: Normal sonographic appearance. Portions obscured: tail Liver: Portions of the right and left lobe are suboptimally seen due to overlying bowel gas Echotexture: Coarse Echogenicity: Normal Surface contour: Smooth Lesions: None. Biliary: No intrahepatic biliary duct dilation. CBD: 0.5 cm at the hilum. Gallbladder: Normal caliber -Contents: Cholelithiasis. Gallbladder sludge. Nonmobile stone in the gallbladder neck of 1.8 cm. -Wall: Normal -Other: No pericholecystic fluid. Right Kidney: No hydronephrosis. Ascites: None. DIVISION OF RADIOLOGY Provider, [facility] - 12/07/2024 * * *Final Report* * * DATE OF EXAM: Dec 07 2024 8:02AM WRU 1032 - US ABD RIGHT UPPER QUADRANT / PROCEDURE REASON: Elevated alkaline phosphatase level * * * * Physician Interpretation * * * * EXAMINATION: RIGHT UPPER QUADRANT ULTRASOUND CLINICAL HISTORY: Elevated alkaline phosphatase TECHNIQUE: Sonography of the right upper quadrant was performed. Images were obtained and stored in a permanent archive. MQ: URUQ_2 COMPARISON: None. RESULT: Visualization is suboptimal due to bowel gas and patient build Pancreas: Normal sonographic appearance. Portions obscured: tail Liver: Portions of the right and left lobe are suboptimally seen due to overlying bowel gas Echotexture: Coarse Echogenicity: Normal Surface contour: Smooth Lesions: None. Biliary: No intrahepatic biliary duct dilation. CBD: 0.5 cm at the hilum. Gallbladder: Normal caliber -Contents: Cholelithiasis. Gallbladder sludge. Nonmobile stone in the gallbladder neck of 1.8 cm. -Wall: Normal -Other: No pericholecystic fluid. Right Kidney: No hydronephrosis. Ascites: None. IMPRESSION IMPRESSION: Cholelithiasis and gallbladder sludge. Common duct is normal in caliber. Visualization is suboptimal as described. Otherwise normal sonographic appearance of the right upper quadrant. Implementation Consultant: ROBY Transcribe Date/Time: Dec 07 2024 8:39A Dictated by : PETRA OVALLES MD This examination was interpreted and the report reviewed and electronically signed by: PETRA OVALLES MD on Dec 07 2024 8:59AM EST [facility] Radiology Study observation (narrative) [facility] US Abdomen RUQOrdered By: Danette ramirez Provider on 12-07-2024 [facility] Hemoccult Stl Ql IAon 2024 Lower GI hemoglobin IA Ql (Stl) Negative Normal Negative [facility] Comment on above: Order Comment: Speci men Type: STOOL SPECIMENOrdering Facility: [facility] Address: [address] [place] [address] Performed By: #### 2 9771-3 ####[facility] [id number] [place] [address] [place] Comprehensive metabolic 2000 panelon 11-24-2024 Albumin [Mass/Vol] 3.9 g/dL 3.9 - 4.9 g/dL [facility] ALP [Catalytic activity/Vol] 140 U/L High 38 - 113 U/L [facility] ALT [Catalytic activity/Vol] 22 U/L 10 - 54 U/L [facility] Anion gap [Moles/Vol] 10 mmol/L 8 - 15 mmol/L [facility] AST [Catalytic activity/Vol] 28 U/L 14 - 40 U/L [facility] Bilirubin [Mass/Vol] 0.8 mg/dL 0.2 - 1.3 mg/dL [facility] Calcium [Mass/Vol] 9.4 mg/dL 8.5 - 10.2 mg/dL [facility] Chloride [Moles/Vol] 106 mmol/L 98 - 107 mmol/L [facility] CO2 [Moles/Vol] 24 mmol/L 22 - 30 mmol/L [facility] Creatinine [Mass/Vol] 0.99 mg/dL 0.73 - 1.22 mg/dL [facility] GFR/1.73 sq M.predicted among non-blacks MDRD (S/P/Bld) [Vol rate/Area] 82 mL/min/{1.73_m2} - PINF [facility] Comment on above: Estimated Glomerular Filtration Rate (eGFR) is calculated using the 2020 CKD-EPI creatinine equation. This equation utilizes serum creatinine, sex, and age as parameters. The creatinine assay has traceable calibration to isotope dilution-mass spectrometry. Refer to KDIGO guidelines for clinical interpretation. In patients with unstable renal function, e.g. those with acute kidney injury, the eGFR may not accurately reflect actual GFR. Glucose [Mass/Vol] 111 mg/dL High 74 - 99 mg/dL [facility] Comment on above: The [place] Diabete s Association (ADA) provides guidance for cutoff values [...] Standards of Medical Care in Diabetes 2016, [place] Diabetes Association. Diabetes Care. 2016.39(Suppl 1). Potassium [Moles/Vol] 4.3 mmol/L 3.7 - 5.1 mmol/L [facility] Protein [Mass/Vol] 6.9 g/dL 6.3 - 8.0 g/dL [facility] Sodium [Moles/Vol] 140 mmol/L 136 - 144 mmol/L [facility] Urea nitrogen [Mass/Vol] 18 mg/dL 9 - 24 mg/dL [facility] LIPID PANEL, NONFASTINGon Cholesterol [Mass/Vol] 143 mg/dL NINF - 200 mg/dL [facility] Comment on above: <200 mg/dL, Desirabl e 200-239 mg/dL, Borderline high >239 mg/dL, High HDL Cholesterol, Nonfasting 32 mg/dL Low 39 - PINF mg/dL [facility] Comment on above: 40-59 mg/dL, Accepta ble >59 mg/dL, High: Negative risk factor for coronary heart disease <40 mg/dL, Low: Positive risk factor for coronary heart disease LDL Cholesterol, Nonfasting 95 mg/dL NINF - 100 mg/dL [facility] Comment on above: <100 mg/dL, Optimal 100-129 mg/dL, Near optimal/above optimal 130-159 mg/dL, Borderline high 160-189 mg/dL, High >189 mg/dL, Very high Secondary prevention optimal LDL Cholesterol levels are recommended to be < 70 mg/dL LDL/HDL Ratio, Nonfasting 2.97 mg/dL High NINF - 2.54 mg/dL [facility] Comment on above: Reference: 1. National Cholesterol Education Program ATP III Guideline At-A-Glance Quick Desk Reference: National Heart, Lung, and Blood Lloyd. National Institutes of Health. 2001: NIH Publication No. 01-3305. 2. An International Atherosclerosis Society position paper: global recommendations for the management of dyslipidemia: executive summary, Atherosclerosis. 2014: 232(2):410-413. Non HDL Cholesterol, Nonfasting 111 mg/dL NINF - 130 mg/dL [facility] Comment on above: <130 mg/dL, Optimal 130-159 mg/dL, Near optimal/above optimal 160-189 mg/dL, Borderline high 190-219 mg/dL, High >219 mg/dL, Very high Secondary prevention optimal non HDL Cholesterol levels are recommended to be <100 mg/dL Total Chol/HDL Ratio, Nonfasting 4.47 mg/dL NINF - 5.10 mg/dL [facility] Triglycerides, Nonfasting 82 mg/dL NINF - 150 mg/dL [facility] Comment on above: <150 mg/dL, Normal 150-199 mg/dL, Borderline high 200-499 mg/dL, High >499 mg/dL, Very high VLDL Cholesterol, Nonfasting 16 mg/dL NINF - 30 mg/dL [facility] No Panel Informationon 11-24 Interpretation and review of laboratory results Abnormal [facility] CBC W Auto Differential pane l (Bld)on 11-23-2024 Basophils (Bld) [#/Vol] 0.03 10*3/uL [facility] Basophils/100 WBC (Bld) 0.7 % [facility] Differential cell count method Nom (Bld) Auto [facility] Eosinophils (Bld) [#/Vol] [facility] Eosinophils/100 WBC (Bld) 0.5 % [facility] Erythrocyte distribution width (RBC) [Ratio] 13.5 % 11.5 - 15.0 % [facility] Hematocrit (Bld) [Volume fraction] 45.5 % 39.0 - 51.0 % [facility] Hemoglobin (Bld) [Mass/Vol] 15.7 g/dL 13.0 - 17.0 g/dL [facility] Immature granulocytes (Bld) [#/Vol] [facility] Immature granulocytes/100 WBC (Bld) 0.5 % [facility] Interpretation and review of laboratory results Abnormal [facility] Lymphocytes (Bld) [#/Vol] 1.21 10*3/uL [facility] Lymphocytes/100 WBC (Bld) 29.8 % [facility] MCH (RBC) [Entitic mass] 33.1 pg 26.0 - 34.0 pg [facility] MCHC (RBC) [Mass/Vol] 34.5 g/dL 30.5 - 36.0 g/dL [facility] MCV (RBC) [Entitic vol] 96 fL 80.0 - 100.0 fL [facility] Monocytes (Bld) [#/Vol] 0.47 10*3/uL [facility] Monocytes/100 WBC (Bld) 11.6 % [facility] Neutrophils (Bld) [#/Vol] 2.31 10*3/uL [facility] Neutrophils/100 WBC (Bld) 56.9 % [facility] Nucleated RBC (Bld) [#/Vol] [facility] Nucleated RBC/100 WBC (Bld) [Ratio] 0 % /100 WBC [facility] Platelet mean volume (Bld) [Entitic vol] 9 fL 9.0 - 12.7 fL [facility] Platelets (Bld) [#/Vol] 108 10*3/uL Low [facility] RBC (Bld) [#/Vol] 4.74 10*6/uL 4.20 - 6.0 0 m/uL [facility] WBC (Bld) [#/Vol] 4.06 10*3/uL [facility] Basophils (Bld) [#/Vol] 0.03 10*3/uL Normal <0.11 [facility] Comment on above: Order Comment: Speci men Type: BLOOD SPECIMENOrdering Facility: [facility] Address: [address] [place] [address] Performed By: #### 5 7021-8 ####[facility] [id number] [place] [address] [place] Basophils/100 WBC (Bld) 0.7 % Normal [facility] Comment on above: Order Comment: Speci men Type: BLOOD SPECIMENOrdering Facility: [facility] Address: [address] [place] [address] Performed By: #### 5 7021-8 ####[facility] [id number] [place] [address] [place] Differential cell count method Nom (Bld) Auto Normal [facility] Comment on above: Order Comment: Speci men Type: BLOOD SPECIMENOrdering Facility: [facility] Address: [address] [place] [address] Performed By: #### 5 7021-8 ####[facility] [id number] [place] [address] [place] Eosinophils (Bld) [#/Vol] 10*3/uL Normal <0.46 [facility] Comment on above: Order Comment: Speci men Type: BLOOD SPECIMENOrdering Facility: [facility] Address: [address] [place] [address] Performed By: #### 5 7021-8 ####[facility] [id number] [place] [address] [place] Eosinophils/100 WBC (Bld) 0.5 % Normal [facility] Comment on above: Order Comment: Speci men Type: BLOOD SPECIMENOrdering Facility: [facility] Address: [address] [place] [address] Performed By: #### 5 7021-8 ####[facility] [id number] [facility] [address] [place] Erythrocyte distribution width (RBC) [Ratio] 13.5 % Normal 11.5-15.0 [facility] Comment on above: Order Comment: Speci men Type: BLOOD SPECIMENOrdering Facility: [facility] Address: [address] [place] [address] Performed By: #### 5 7021-8 ####[facility] [id number] [place] [address] [place] Hematocrit (Bld) [Volume fraction] 45.5 % Normal 39.0-51.0 [facility] Comment on above: Order Comment: Speci men Type: BLOOD SPECIMENOrdering Facility: [facility] Address: [address] [place] [address] Performed By: #### 5 7021-8 ####[facility]IA [id number] [facility] [address], [address] [place] Hemoglobin (Bld) [Mass/Vol] 15.7 g/dL Normal 13.0-17.0 [facility] Comment on above: Order Comment: Speci men Type: BLOOD SPECIMENOrdering Facility: [facility] Address: [address] [place] [address] Performed By: #### 5 7021-8 ####[facility] [id number] [place] [address] [place] Immature granulocytes (Bld) [#/Vol] 10*3/uL Normal <0.10 [facility] Comment on above: Order Comment: Speci men Type: BLOOD SPECIMENOrdering Facility: [facility] Address: [address] [place] [address] Performed By: #### 5 7021-8 ####[facility] [id number] [place] [address] [place] Immature granulocytes/100 WBC (Bld) 0.5 % Normal [facility] Comment on above: Order Comment: Speci men Type: BLOOD SPECIMENOrdering Facility: [facility] Address: [address] [place] [address] Performed By: #### 5 7021-8 ####[facility] [id number] [place] [address] [place] Lymphocytes (Bld) [#/Vol] 1.21 10*3/uL Normal 1.00-4.00 [facility] Comment on above: Order Comment: Speci men Type: BLOOD SPECIMENOrdering Facility: [facility] Address: [address] [place] [address] Performed By: #### 5 7021-8 ####[facility] LABIA [id number] [place] [address] [place] Lymphocytes/100 WBC (Bld) 29.8 % Normal [facility] Comment on above: Order Comment: Speci men Type: BLOOD SPECIMENOrdering Facility: [facility] Address: [address] [place] [address] Performed By: #### 5 7021-8 ####[facility]IA [id number] [place] [address] [place] MCH (RBC) [Entitic mass] 33.1 pg Normal 26.0-34.0 [facility] Comment on above: Order Comment: Speci men Type: BLOOD SPECIMENOrdering Facility: [facility] Address: [address] [place] [address] Performed By: #### 5 7021-8 ####[facility] [id number] [place] [address] [place] MCHC (RBC) [Mass/Vol] 34.5 g/dL Normal 30.5-36.0 [facility] Comment on above: Order Comment: Speci men Type: BLOOD SPECIMENOrdering Facility: [facility] Address: [address] [place] [address] Performed By: #### 5 7021-8 ####[facility] [id number] [place] [address] [place] MCV (RBC) [Entitic vol] 96.0 fL Normal 80.0-100.0 [facility] Comment on above: Order Comment: Speci men Type: BLOOD SPECIMENOrdering Facility: [facility] Address: [address] [place] [address] Performed By: #### 5 7021-8 ####[facility] LABIA [id number] [place] [address] [place] Monocytes (Bld) [#/Vol] 0.47 10*3/uL Normal <0.87 [facility] Comment on above: Order Comment: Speci men Type: BLOOD SPECIMENOrdering Facility: [facility] Address: [address] [place] [address] Performed By: #### 5 7021-8 ####[facility] LABIA [id number] [place] [address] [place] Monocytes/100 WBC (Bld) 11.6 % Normal [facility] Comment on above: Order Comment: Speci men Type: BLOOD SPECIMENOrdering Facility: [facility] Address: [address] [place] [address] Performed By: #### 5 7021-8 ####[facility] [id number] [place] [address] [place] Neutrophils (Bld) [#/Vol] 2.31 10*3/uL Normal 1.45-7.50 [facility] Comment on above: Order Comment: Speci men Type: BLOOD SPECIMENOrdering Facility: [facility] Address: [address] [place] [address] Performed By: #### 5 7021-8 ####[facility] [id number] [place] [address] [place] Neutrophils/100 WBC (Bld) 56.9 % Normal [facility] Comment on above: Order Comment: Speci men Type: BLOOD SPECIMENOrdering Facility: [facility] Address: [address] [place] [address] Performed By: #### 5 7021-8 ####[facility]IA [id number] [place] [address] [place] Nucleated RBC (Bld) [#/Vol] 10*3/uL Normal <0.01 [facility] Comment on above: Order Comment: Speci men Type: BLOOD SPECIMENOrdering Facility: [facility] Address: [address] [place] [address] Performed By: #### 5 7021-8 ####[facility]IA [id number] [place] [address] [place] Nucleated RBC/100 WBC (Bld) [Ratio] 0.0 /100 WBC Normal [facility] Comment on above: Order Comment: Speci men Type: BLOOD SPECIMENOrdering Facility: [facility] Address: [address] [place] [address] Performed By: #### 5 7021-8 ####[facility] [id number] [place] [address] [place] Platelet mean volume (Bld) [Entitic vol] 9.0 fL Normal 9.0-12.7 [facility] Comment on above: Order Comment: Speci men Type: BLOOD SPECIMENOrdering Facility: [facility] Address: [address] [place] [address] Performed By: #### 5 7021-8 ####[facility] [id number] [place] [address] [place] Platelets (Bld) [#/Vol] 108 10*3/uL Low 150-400 [facility] Comment on above: Order Comment: Speci men Type: BLOOD SPECIMENOrdering Facility: [facility] Address: [address] [place] [address] Performed By: #### 5 7021-8 ####[facility] [id number] [place] [address] [place] RBC (Bld) [#/Vol] 4.74 10*6/uL Normal 4.20-6.00 [facility] Comment on above: Order Comment: Speci men Type: BLOOD SPECIMENOrdering Facility: [facility] Address: [address] [place] [address] Performed By: #### 5 7021-8 ####[facility] [id number] [place] [address] [place] WBC (Bld) [#/Vol] 4.06 10*3/uL Normal 3.70-11.00 [facility] Comment on above: Order Comment: Speci men Type: BLOOD SPECIMENOrdering Facility: [facility] Address: [address] [place] [address] Performed By: #### 5 7021-8 ####[facility] [id number] [place] [address] [place] CNOVon 11-23-2024 CNOV Office Visit (FAMPWS ) MACI HOWARD ([id number]) 1955 M Date Time Provider Department 11/23/24 8:40 AM VILMA SNOW During your visit today, we recorded the following information about you: Pulse Respiration Blood pressure Weight 57/minute 18/minute 124/76 103.1 kg Vilma Snow MD 11/24/2024 7:17 AM Signed Chief Complaint Patient presents with: Follow Up: 6 month routine HPI Maci Howard is a 69 year old male who presents here today for Above Complaints. Patient has been in good health without recent hospitalizations, ER visits, or falls. No concerns today. CAD s/p SHANIQUA to LAD: managed by [facility] cardiology with last OV 06/2024. 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 Opted to work on weight loss and recommended f/u in 6 months. Complaint with current regimen. No weight change on our scale. HELTON has not changed at all. Denies chest pain, palpitations, LE edema. Not sure when his next f/u is with their office. Asthma/COPD managed by [facility] pulmonology with last OV in October. No changes to regimen. Denies cough/wheezing or worsening SOB. Complaint with regimen. LESLY: compliant with CPAP on a nightly basis. Denies snoring, daytime somnolence or apnea. GERD controlled with protonix. Denies anxiety/depression symptoms without rx or counseling. Past medical history, appointments, medications, allergies reviewed. [...] DIAGNOSTIC 05/01/2007 EGD ESOPHAGOGASTRODUODENOSCOPY TRANSORAL DIAGNOSTIC 03/21/2013 [facility] EGD PAST SURGICAL HISTORY OF submandibular [...] on File Prior to Visit Medication Sig pantoprazole DR (PROTONIX) 20 mg tablet TAKE 1 TABLET DAILY BEFORE BREAKFAST. TAKE ON AN EMPTYSTOMACH, 1/2 HOUR BEFORE A MEAL. losartan (COZAAR) 25 mg tablet Take 0.5 tablets by mouth once daily. atorvastatin (LIPITOR) 80 mg tablet Take 1 [...] date: 08/18/1969 Quit date: 08/18/1989 Years since quittin.2 Smokeless tobacco: Former Types: Snuff Quit date: 01/16/2017 Vaping Use Vaping status: Never Used Substance Use Topics Alcohol use: Yes Alcohol/week: 1.0 standard drink of alcohol Types: 1 Cans of Beer (12oz) per week Comment: rare-beer Drug use: No Review of Symptoms REVIEW OF SYSTEMS GENERAL: No weight loss, malaise o (more content not included)... Normal [facility] Comprehensive metabolic 2000 panelon 11-23-2024 Albumin [Mass/Vol] 3.9 g/dL Normal 3.9-4.9 [facility] Comment on above: Order Comment: Speci men Type: BLOOD SPECIMENOrdering Facility: [facility] Address: [address] [place] [address] Performed By: #### L IPNF, 75273-0 ####[facility] [id number] [place] [address] [place] ALP [Catalytic activity/Vol] 140 U/L High 38-113 [facility] Comment on above: Order Comment: Speci men Type: BLOOD SPECIMENOrdering Facility: [facility] Address: [address] [place] [address] Performed By: #### L IPNF, 34200-1 ####[facility] [id number] [place] [address] [place] ALT [Catalytic activity/Vol] 22 U/L Normal 10-54 [facility] Comment on above: Order Comment: Speci men Type: BLOOD SPECIMENOrdering Facility: [facility] Address: [address] [place] [address] Performed By: #### L IPNF, 15700-3 ####[facility]CL[facility] [id number] [place] [id number] [place] Anion gap [Moles/Vol] 10 mmol/L Normal 8-15 [facility] Comment on above: Order Comment: Speci men Type: BLOOD SPECIMENOrdering Facility: [facility] Address: [address] [place] [address] Performed By: #### L IPNF, 88414-5 ####[facility] [id number] [place] [id number] [place] AST [Catalytic activity/Vol] 28 U/L Normal 14-40 [facility] Comment on above: Order Comment: Speci men Type: BLOOD SPECIMENOrdering Facility: [facility] Address: [address] [place] [address] Performed By: #### L IPNF, ####[facility] [id number] [place] [address] [place] Bilirubin [Mass/Vol] 0.8 mg/dL Normal 0.2-1.3 [facility] Comment on above: Order Comment: Speci men Type: BLOOD SPECIMENOrdering Facility: [facility] Address: [address] [place] [address] Performed By: #### L IPNF, ####[facility] [id number] [place] [address] [place] Calcium [Mass/Vol] 9.4 mg/dL Normal 8.5-10.2 [facility] Comment on above: Order Comment: Speci men Type: BLOOD SPECIMENOrdering Facility: [facility] Address: [address] [place] [address] Performed By: #### L IPNF, ####[facility] [id number] [place] [address] [place] Chloride [Moles/Vol] 106 mmol/L Normal 98-107 [facility] Comment on above: Order Comment: Speci men Type: BLOOD SPECIMENOrdering Facility: [facility] Address: [address] [place], [place] [id number] Performed By: #### L IPNF, ####[facility] [id number] [place] [address] [place] CO2 [Moles/Vol] 24 mmol/L Normal 22-30 [facility] Comment on above: Order Comment: Speci men Type: BLOOD SPECIMENOrdering Facility: [facility] Address: [address] [place] [address] Performed By: #### L IPNF, 41620-2 ####[facility] [id number] [place] [id number] [place] Creatinine [Mass/Vol] 0.99 mg/dL Normal 0.73-1.22 [facility] Comment on above: Order Comment: David men Type: BLOOD SPECIMENOrdering Facility: [facility] Address: [address] [place] [address] Performed By: #### L IPNF, 52140-0 ####[facility]IA [id number] [place] [address] [place] Creatinine and Glomerular filtration rate.predicted panel (S/P/Bld) 82 mL/min/1.73m??? Normal >=60 [facility] Comment on above: Order Comment: David olivo Type: BLOOD SPECIMENOrdering Facility: [facility] Address: [address] [place] [address] Result Comment: Lupe mated Glomerular Filtration Rate [...] accurately reflect actual GFR. Performed By: #### L IPNF, 29909-3 ####[facility]IA [id number] [place] [id number] [place] Glucose [Mass/Vol] 111 mg/dL High 74-99 [facility] Comment on above: Order Comment: David men Type: BLOOD SPECIMENOrdering Facility: [facility] Address: [address] [place] [address] Result Comment: The [place] [employer] (ADA) provides guidance for cutoff [...] Standards of Medical Care in Diabetes 2016, [place] [employer]. Diabetes Care. 2016.39(Suppl 1). Performed By: #### L IPJESSICA, 70423-4 ####[facility] LABCLIA [id number] [address] [address] [place] Potassium [Moles/Vol] 4.3 mmol/L Normal 3.7-5.1 [facility] Comment on above: Order Comment: David olivo Type: BLOOD SPECIMENOrdering Facility: [facility] Address: [address] [place] [address] Performed By: #### L IPJESSICA, ####[facility] LABCLIA [id number] [place] [id number] [place] Protein [Mass/Vol] 6.9 g/dL Normal 6.3-8.0 [facility] Comment on above: Order Comment: David olivo Type: BLOOD SPECIMENOrdering Facility: [facility] Address: [address] [place] [address] Performed By: #### L IPNF, 97666-5 ####[facility] LABCLIA [id number] [place] [id number] [place] Sodium [Moles/Vol] 140 mmol/L Normal 136-144 [facility] Comment on above: Order Comment: David olivo Type: BLOOD SPECIMENOrdering Facility: [facility] Address: [address] [place] [address] Performed By: #### L IPNF, 52981-1 ####[facility] LABCLIA [id number] [address] [address] [place] Urea nitrogen [Mass/Vol] 18 mg/dL Normal 9-24 [facility] Comment on above: Order Comment: Speci men Type: BLOOD SPECIMENOrdering Facility: [facility] Address: [address] [place] [address] Performed By: #### L OLENA, 67166-7 ####[facility] LABCLIA [id number] [place] [id number] [facility] LIPID PANEL, NONFASTINGon Cholesterol [Mass/Vol] 143 mg/dL Normal <200 [facility] Comment on above: Order Comment: Speci men Type: BLOOD SPECIMENOrdering Facility: [facility] Address: [address] [place] [address] Result Comment: <200 mg/dL, Desirable 200-239 mg/dL, Borderline high >239 mg/dL, High Performed By: #### L OLENA, 64072-8 ####[facility] LABCLIA [id number] [place] [address] [place] HDL CHOLESTEROL, NF 32 mg/dL Low >39 [facility] Comment on above: Order Comment: Speci men Type: BLOOD SPECIMENOrdering Facility: [facility] Address: [address] [place] [address] Result Comment: 40-5 9 mg/dL, Acceptable >59 mg/dL, High: Negative risk factor for coronary heart disease <40 mg/dL, Low: Positive risk factor for coronary heart disease Performed By: #### L OLENA, 35992-2 ####[facility] LABCLIA [id number] [place] [id number] [place] LDL CHOLESTEROL, NF 95 mg/dL Normal <100 [facility] Comment on above: Order Comment: Speci men Type: BLOOD SPECIMENOrdering Facility: [facility] Address: [address] [place] [address] Result Comment: <100 mg/dL, Optimal 100-129 mg/dL, Near optimal/above optimal 130-159 mg/dL, Borderline high 160-189 mg/dL, High >189 mg/dL, Very high Secondary prevention optimal LDL Cholesterol levels are recommended to be < 70 mg/dL Performed By: #### L IPNF, 62019-0 ####[facility] LABCLIA [id number] [address] [address] [facility] LDL/HDL RATIO, NF 2.97 mg/dL High <2.[address] [facility] Comment on above: Order Comment: Isabeli men Type: BLOOD SPECIMENOrdering Facility: [facility] Address: [address] [place] [address] Result Comment: Refe rence: 1. National Cholesterol Education Program ATP III Guideline At-A-Glance Quick Desk Reference: National Heart, Lung, and Blood Lloyd. National Institutes of Health. 2001: NIH Publication No. 01-3305. 2. An International Atherosclerosis Society position paper: global recommendations for the management of dyslipidemia: executive summary, Atherosclerosis. 2014: 232(2):410-413. Performed By: #### L IPJESSICA, 63043-5 ####[facility] LABCLIA [id number] [address] STATES [facility] NON HDL CHOL, NF 111 mg/dL Normal <130 [facility] Comment on above: Order Comment: David olivo Type: BLOOD SPECIMENOrdering Facility: [facility] Address: [address] [place] [address] Result Comment: <130 mg/dL, Optimal 130-159 mg/dL, Near optimal/above optimal 160-189 mg/dL, Borderline high 190-219 mg/dL, High >219 mg/dL, Very high Secondary prevention optimal non HDL Cholesterol levels are recommended to be <100 mg/dL Performed By: #### L IPNF, 15391-2 ####[facility] LABCLIA [id number] [place] [id number] [facility] T CHOL/HDL RATIO NF 4.47 mg/dL Normal <5.10 [facility] Comment on above: Order Comment: David olivo Type: BLOOD SPECIMENOrdering Facility: [facility] Address: [address] [place] [address] Performed By: #### L IPNF, 40250-7 ####[facility] LABCLIA [id number] [place] [id number] [place] TRIGLYCERIDES, NF 82 mg/dL Normal <[address] [facility] Comment on above: Order Comment: David olivo Type: BLOOD SPECIMENOrdering Facility: [facility] Address: [address] [place] [address] Result Comment: <150 mg/dL, Normal 150-199 mg/dL, Borderline high 200-499 mg/dL, High >499 mg/dL, Very high Performed By: #### L IPNF, 75843-7 ####[facility] LABCLIA [id number] [place] [address] [place] VLDL CHOLESTEROL, NF 16 mg/dL Normal <30 [facility] Comment on above: Order Comment: David olivo Type: BLOOD SPECIMENOrdering Facility: [facility] Address: [address] [place] [address] Performed By: #### L IPNF, 78546-9 ####[facility] LABCLIA [id number] [place] [address] [place] Pulmonary Visit Reporton Pulmonary Visit Report [facility] Pulmonary Medicine of [address] [place] [address] OFFICE VISIT Date of Service: 11/11/24 MR#: [id number] Acct: [id number] Name: MACI HOWARD Rep #: [id number] : 1955 Provider: JANE Zelaya Age/Sex: 69/M Location: [facility] Status: Signed Assessment and Plan Assessment and Plan (1) Asthma-COPD overlap syndrome: Status: Inactive Comment: Smoking history, quit over 30 years ago. Not appropriate for LDCT. Plan: Stable, he does not appear to be in exacerbation today. No indication for antibiotics or steroids to be repeated. Continue current maintenance medication, symptomatically controlled with the use of Singulair and Nucala. I suggested that if he notices any increase in cough, shortness of breath or wheezing that he try using 1 puff of Breo daily for a few days in a row. He conveys understanding and is agreeable with this plan. No additional testing at this time. Contact the office for any new or worsening symptoms. An acute visit and typically be arranged within 1-2 days. Follow-up in 6 months. (2) LESLY (obstructive sleep apnea): Status: Chronic Plan: He is using and benefiting from Pap therapy. No indication for titration study at this time. Contact the office for any new or worsening symptoms in the meantime. Follow-up in 6 months. (3) Bronchiectasis: Status: Inactive Qualifiers: Bronchiectasis type: with acute exacerbation Qualified Code(s): J47.1 - Bronchiectasis with (acute) exacerbation Comment: CT of the chest from November 212018 documents pleural thickening with pleural parenchymal linear nodular stranding is noted in the right base with some bronchiectasis which could represent chronic changes. Plan: Stable, no indication for antibiotics or steroids today. Plan Details Follow Up: 6 Months HPI 6 M FU Chief Complaint: routine follow up HPI Comments Details: This patient presents to the office today for follow-up of his severe asthma with COPD overlap syndrome complicated by obstructive sleep apnea. He is ambulatory and currently on room air. He has not recently been seen in the ED or urgent care for any respiratory illness. He has not required any antibiotics or prednisone for breathing problems. He is compliant with use of Singulair daily. He is not using his albuterol rescue inhaler as frequently recently. He is compliant with Nucala monthly injections. He estimates that he probably utilizes albuterol HFA 1-2 times per month. He is experiencing shortness of breath on exertion. He has a chronic cough that is productive of clear to yellow colored sputum. He denies any hemoptysis. He reports wheezing but denies any chest tightness, chest pain or palpitations. He has not had any fever, chills or body aches. He continues complete smoking cessation. The patient quit smoking over 30 years ago. He reports excellent compliance with his PAP device. He is waking up feeling rested and refreshed. He does have difficulty with dry mouth. He is not having excessive nocturia. He is not requiring naps and is not nodding off to sleep unintentionally. Compliance report for the past 30 days shows 100% compliance with average use of 6 hours and 44 minutes per night. Current setting is CPAP 13 cmH2O with residual AHI 0.5 events per hour. Leaks do appear to be occurring regularly but are actually improved over the past week. 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: [employer]is Accompanied by: Self Allergies No Known Allergies Allergy (Verified 11/11/24 13:23) Medications ???Medication ???Instructions ???Recorded ???Confirmed ???Type clopidogrel 75 mg tablet 75 mg PO DINNER antiplatelet/heart 03/11/17 11/11/24 History health pantoprazole 20 mg tablet,delayed 20 mg PO DINNER gerd 03/11/17 History release nitroglycerin 0.4 mg sublingual 0.4 mg sublingual Q5M PRN Chest 11/11/24 Rx tablet Pain #25 tabs mepolizumab 100 mg/mL subcutaneous 100 mg subcut Q4W 08/30/2011/11 History auto-injector montelukast 10 mg tablet 10 mg PO DAILY@1700 #90 tabs 01/0511/11/24 Rx atorvastatin 80 mg tablet 80 mg PO QDAY 01/29/24 11/11/24 Hi story losartan 25 mg tablet 12.5 mg PO QDAY 01/29/24 11/11/24 History albuterol sulfate 90 mcg/actuation 2 puff inhalation Q6H PRN 11/11/24 History aerosol (more content not included)... Normal [facility] Cardiology Visit Reporton Cardiology Visit Report [facility] [address] [place], [place] [address] OFFICE VISIT Date of Service: 07/05/24 MR#: [id number] Acct: [id number] Name: MACI HOWARD Rep #: [id number] : 1955 Provider: JANE ramirez Age/Sex: 69/M Location: [facility] Status: Signed HPI HPI History of Present Illness Details: This is a 69-year-old gentleman who presents here today for a cardiovascular follow-up visit. He has a history of coronary artery disease with stenting to his LAD in 2016, hyperlipidemia, and hypertension superimposed upon a history of COPD. He was evaluated in the Emergency Department on 04/09/2024 for palpitations and heart rate of 35 bpm. He was noted to have bigeminy and heart rate of 71 bpm. Laboratory testing was negative, including high sensitive troponin x 2. Potassium was 3.5. He had a stress test in August 2023 that was negative for ischemia. He denies chest, arm, jaw, or neck discomfort. He denies palpitations. He states bilateral lower extremity edema after a long car ride. He denies claudication. He states shortness of breath with activity such as going up stairs. This is unchanged from previous. He denies shortness of breath at rest, orthopnea, or PND. He states productive cough. He denies significant, sudden weight gain. He denies lightheadedness, dizziness, near-syncope, or syncope. He denies blood in urine, blood in stool, or epistaxis. He denies fever with chills. He denies myalgia. He continues with fatigue since 2014. His exercise level has remained stable. He states waking in a fog that improves throughout the day. 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 Repairer Required: No Is patient in pain?: No Allergies No Known Allergies Allergy (Verified 07/05/24 08:41) Medications ???Medication ???Instructions ???Recorded ???Confirmed ???Type clopidogrel 75 mg tablet 75 mg PO DINNER antiplatelet/heart 03/11/17 07/05/24 History health pantoprazole 20 mg tablet,delayed 20 mg PO DINNER gerd 03/11/17 07/05/24 History release nitroglycerin 0.4 mg sublingual 0.4 mg sublingual Q5M PRN Chest 02/24/20 07/05/24 Rx tablet Pain #25 tabs mepolizumab 100 mg/mL subcutaneous 100 mg subcut Q4W 08/30/20 07/05/24 History auto-injector montelukast 10 mg tablet 10 mg PO DAILY@1700 #90 tabs 01/06/24 07/05/24 Rx atorvastatin 80 mg tablet 80 mg PO QDAY 01/29/24 07/05/24 History losartan 25 mg tablet 12.5 mg PO QDAY 01/29/24 07/05/24 History albuterol sulfate 90 mcg/actuation 2 puff inhalation Q6H PRN 04/13/24 07/05/24 History aerosol inhaler shortness of breath or wheezing Ejection fraction %: 55 Have you fallen in the past year?: No PFSH Medical History Pre-operative cardiovascular examination Abnormal CT scan, chest Asthma-COPD overlap syndrome Bronchiectasis Severe persistent asthma not dependent on systemic steroids Essential hypertension CVA (cerebral vascular accident) Atherosclerotic heart disease of [place] coronary artery without angina pectoris Diastolic dysfunction URI (upper respiratory infection) Wheezing Dyspnea LESLY (obstructive sleep apnea) Pneumonia HTN (hypertension) Sinusitis Acute exacerbation of COPD with asthma Hyperlipidemia Chest pain Obesity (BMI 30.0-34.9) COPD (chronic obstructive pulmonary disease) Asthma Gastric reflux Prostate cancer Patent foramen ovale Surgical History History of left heart catheterization (LHC) History of vasectomy History of prostate surgery Postsurgical percutaneous transluminal coronary angioplasty (PTCA) status ( 05/15/17) Presence of stent in coronary artery ( 05/15/17) Family History Father Hypertension Prostate cancer Mother CAD (coronary artery disease) Social History household members: spouse housing: house Smoking Status: Former smoker how long ago did patient quit smokin-30 years ago second hand exposure: Yes alcohol intake: current alcohol intake frequency: a few times a month substance use type: does not use caffeine: Yes Type: coffee Number of servings: 2 what type of physical activity do you participate in: none frequency: does not exercise seatbelt use: always ROS Const Const: Positive for fatigue (Fatigued more quickly) and other (Decreased energy); Negative for weakness Eyes Eyes: Negativ (more content not included)... [facility] Office Visit (FAMPWS ) MACI HOWARD ([id number]) 1955 M Date Time Provider Department 05/25/24 8:20 AM OLIVA WONG During your visit today, we recorded the following information about you: Pulse Respiration Blood pressure Weight 59/minute 18/minute 124/88 103.3 kg Oliva Wong APRN.HOME VISITOR 05/25/2024 10:38 AM Signed 05/25/2024 Patient presents [...] CAD s/p SHANIQUA to LAD: followed with [facility], cardiology on 04/13/2024. No medication changes made at that time. ECHO completed and EF: 55%. Per patient wore a heart monitor and he is skipping some beats. Will be having repeat heart monitor over night again. Reports he will be doing this next week Dyspnea/LESLY: following with [facility] pulmnology with last visit on 2024. [...] 4.91 Hemoglobin (more content not included)... Normal [facility] CBC W Auto Differential pane l (Bld)on 05-24-2024 Basophils (Bld) [#/Vol] 0.04 10*3/uL Normal <0.11 [facility] Comment on above: Order Comment: Speci men Type: BLOOD SPECIMENOrdering Facility: [facility] Address: [address] [place] [address] Performed By: #### 5 7021-8 ####[facility] SABRINAWNCLIA [id number] [place] [address] [place] Basophils/100 WBC (Bld) 0.7 % Normal [facility] Comment on above: Order Comment: Speci men Type: BLOOD SPECIMENOrdering Facility: [facility] Address: [address] [place] [address] Performed By: #### 5 7021-8 ####[facility] ELLIOTTLONG BEACHJORDYLIA [id number] [place] [address] [place] Differential cell count method Nom (Bld) Auto Normal [facility] Comment on above: Order Comment: Speci men Type: BLOOD SPECIMENOrdering Facility: [facility] Address: [address] [place] [address] Performed By: #### 5 7021-8 ####[facility] CENTERJORDYA [id number] [place] [address] [place] Eosinophils (Bld) [#/Vol] 0.05 10*3/uL Normal <0.46 [facility] Comment on above: Order Comment: Speci men Type: BLOOD SPECIMENOrdering Facility: [facility] Address: [address] [place] [address] Performed By: #### 5 7021-8 ####[facility] ELLIOTTLONG BEACHJORDYLIA [id number] [place] [address] [place] Eosinophils/100 WBC (Bld) 0.9 % Normal [facility] Comment on above: Order Comment: Speci men Type: BLOOD SPECIMENOrdering Facility: [facility] Address: [address] [place] [address] Performed By: #### 5 7021-8 ####[facility]ENTERNCLIA [id number] [place] [address] [place] Erythrocyte distribution width (RBC) [Ratio] 13.2 % Normal 11.5-15.0 [facility] Comment on above: Order Comment: Speci men Type: BLOOD SPECIMENOrdering Facility: [facility] Address: [address] [place] [address] Performed By: #### 5 7021-8 ####[facility] BEL [id number] [place] [address] [place] Hematocrit (Bld) [Volume fraction] 45.9 % Normal 39.0-51.0 [facility] Comment on above: Order Comment: Speci men Type: BLOOD SPECIMENOrdering Facility: [facility] Address: [address] [place] [address] Performed By: #### 5 7021-8 ####[facility] CENTERDAHIANA [id number] [place] [address] [place] Hemoglobin (Bld) [Mass/Vol] 15.9 g/dL Normal 13.0-17.0 [facility] Comment on above: Order Comment: Speci men Type: BLOOD SPECIMENOrdering Facility: [facility] Address: [address] [place] [address] Performed By: #### 5 7021-8 ####[facility] CENTERJORDYJessica [id number] [place] [address] [place] Immature granulocytes (Bld) [#/Vol] 0.06 10*3/uL Normal <0.10 [facility] Comment on above: Order Comment: Speci men Type: BLOOD SPECIMENOrdering Facility: [facility] Address: [address] [place] [address] Performed By: #### 5 7021-8 ####[facility] CENTERJORDYLIA [id number] [place] [address] [place] Immature granulocytes/100 WBC (Bld) 1.0 % Normal [facility] Comment on above: Order Comment: Speci men Type: BLOOD SPECIMENOrdering Facility: [facility] Address: [address] [place] [address] Performed By: #### 5 7021-8 ####[facility] HOSPITALWNCLIA [id number] [place] [address] [place] Lymphocytes (Bld) [#/Vol] 1.99 10*3/uL Normal 1.00-4.00 [facility] Comment on above: Order Comment: Speci men Type: BLOOD SPECIMENOrdering Facility: [facility] Address: [address] [place] [address] Performed By: #### 5 7021-8 ####[facility] HE[facility] WASHINGTON TOWNSHIPLIA [id number] [place] [address] [place] Lymphocytes/100 WBC (Bld) 34.5 % Normal [facility] Comment on above: Order Comment: Speci men Type: BLOOD SPECIMENOrdering Facility: [facility] Address: [address] [place] [address] Performed By: #### 5 7021-8 ####[facility]A [id number] [place] [address] [place] MCH (RBC) [Entitic mass] 32.4 pg Normal 26.0-34.0 [facility] Comment on above: Order Comment: Speci men Type: BLOOD SPECIMENOrdering Facility: [facility] Address: [address] [place] [address] Performed By: #### 5 7021-8 ####[facility] HE[facility] W[facility] TOWNSHIPLIA [id number] [place] [address] [place] MCHC (RBC) [Mass/Vol] 34.6 g/dL Normal 30.5-36.0 [facility] Comment on above: Order Comment: Speci men Type: BLOOD SPECIMENOrdering Facility: [facility] Address: [address] [place] [address] Performed By: #### 5 7021-8 ####[facility] CENTERNCLI [id number] [place] [address] [place] MCV (RBC) [Entitic vol] 93.5 fL Normal 80.0-100.0 [facility] Comment on above: Order Comment: Speci men Type: BLOOD SPECIMENOrdering Facility: [facility] Address: [address] [place] [address] Performed By: #### 5 7021-8 ####[facility] TOWNSHIPLIA [id number] [place] [address] [place] Monocytes (Bld) [#/Vol] 0.65 10*3/uL Normal <0.87 [facility] Comment on above: Order Comment: Speci men Type: BLOOD SPECIMENOrdering Facility: [facility] Address: [address] [place] [address] Performed By: #### 5 7021-8 ####[facility]STITUTEA [id number] [place] [address] [place] Monocytes/100 WBC (Bld) 11.3 % Normal [facility] Comment on above: Order Comment: Speci men Type: BLOOD SPECIMENOrdering Facility: [facility] Address: [address] [place] [address] Performed By: #### 5 7021-8 ####[facility] W[facility] TOWNSHIPLIA [id number] [place] [address] [place] Neutrophils (Bld) [#/Vol] 2.98 10*3/uL Normal 1.45-7.50 [facility] Comment on above: Order Comment: Speci men Type: BLOOD SPECIMENOrdering Facility: [facility] Address: [address] [place] [address] Performed By: #### 5 7021-8 ####[facility]ENTERNCLIA [id number] [place] [address] [place] Neutrophils/100 WBC (Bld) 51.6 % Normal [facility] Comment on above: Order Comment: Speci men Type: BLOOD SPECIMENOrdering Facility: [facility] Address: [address] [place] [address] Performed By: #### 5 7021-8 ####[facility] BEL [id number] [place] [address] [place] Nucleated RBC (Bld) [#/Vol] 10*3/uL Normal <0.01 [facility] Comment on above: Order Comment: Speci men Type: BLOOD SPECIMENOrdering Facility: [facility] Address: [address] [place] [address] Performed By: #### 5 7021-8 ####[facility] CENTERDAHIANA [id number] [place] [address] [place] Nucleated RBC/100 WBC (Bld) [Ratio] 0.0 /100 WBC Normal [facility] Comment on above: Order Comment: Speci men Type: BLOOD SPECIMENOrdering Facility: [facility] Address: [address] [place] [address] Performed By: #### 5 7021-8 ####[facility]ENTERNCLIA [id number] [place] [address] [place] Platelet mean volume (Bld) [Entitic vol] 8.5 fL Low 9.0-12.7 [facility] Comment on above: Order Comment: Speci men Type: BLOOD SPECIMENOrdering Facility: [facility] Address: [address] [place] [address] Performed By: #### 5 7021-8 ####[facility]ENTERNCLIA [id number] [place] [address] [place] Platelets (Bld) [#/Vol] 131 10*3/uL Low 150-400 [facility] Comment on above: Order Comment: Speci men Type: BLOOD SPECIMENOrdering Facility: [facility] Address: [address] [place] [address] Performed By: #### 5 7021-8 ####[facility] ELLIOTTTOWNCLIA [id number] [place] [address] [place] RBC (Bld) [#/Vol] 4.91 10*6/uL Normal 4.20-6.00 [facility] Comment on above: Order Comment: Speci men Type: BLOOD SPECIMENOrdering Facility: [facility] Address: [address] [place] [address] Performed By: #### 5 7021-8 ####[facility] ELLIOTTWNCLIA [id number] [place] [address] [place] WBC (Bld) [#/Vol] 5.77 10*3/uL Normal 3.70-11.00 [facility] Comment on above: Order Comment: Speci men Type: BLOOD SPECIMENOrdering Facility: [facility] Address: [address] [place] [address] Performed By: #### 5 7021-8 ####[facility] ELLIOTTWNCLIA [id number] [place] [address] [place] Comprehensive metabolic 2000 panelon 05-24-2024 Albumin [Mass/Vol] 4.0 g/dL Normal 3.9-4.9 [facility] Comment on above: Order Comment: Speci men Type: BLOOD SPECIMENOrdering Facility: [facility] Address: [address] [place] [address] Performed By: #### 2 4323-8 ####[facility]ITALWNCLIA [id number] [place] [address] [place] ALP [Catalytic activity/Vol] 145 U/L High 38-113 [facility] Comment on above: Order Comment: Speci men Type: BLOOD SPECIMENOrdering Facility: [facility] Address: [address] [place], [place] [address] Performed By: #### 2 4323-8 ####[facility] MILLTOWNCLIA [id number] [place] [address] [place] ALT [Catalytic activity/Vol] 21 U/L Normal 10-54 [facility] Comment on above: Order Comment: Speci men Type: BLOOD SPECIMENOrdering Facility: [facility] Address: [address] [place] [address] Performed By: #### 2 4323-8 ####[facility] MILLTOWNCLIA [id number] [place] [address] [place] Anion gap [Moles/Vol] 10 mmol/L Normal 8-15 [facility] Comment on above: Order Comment: Speci men Type: BLOOD SPECIMENOrdering Facility: [facility] Address: [address] [place] [address] Performed By: #### 2 4323-8 ####[facility]ENTERNCLIA [id number] [place] [address] [place] AST [Catalytic activity/Vol] 20 U/L Normal 14-40 [facility] Comment on above: Order Comment: Speci men Type: BLOOD SPECIMENOrdering Facility: [facility] Address: [address] [place] [address] Performed By: #### 2 4323-8 ####[facility] TOWNSHIPLIA [id number] [place] [address] [place] Bilirubin [Mass/Vol] 0.8 mg/dL Normal 0.2-1.3 [facility] Comment on above: Order Comment: Speci men Type: BLOOD SPECIMENOrdering Facility: [facility] Address: [address] [place] [address] Performed By: #### 2 4323-8 ####[facility]ENTERNCLIA [id number] [place] [address] [place] Calcium [Mass/Vol] 9.1 mg/dL Normal 8.5-10.2 [facility] Comment on above: Order Comment: Speci men Type: BLOOD SPECIMENOrdering Facility: [facility] Address: [address] [place] [address] Performed By: #### 2 4323-8 ####[facility]ENTERNCLIA [id number] [place] [address] [place] Chloride [Moles/Vol] 106 mmol/L Normal 98-107 [facility] Comment on above: Order Comment: Speci men Type: BLOOD SPECIMENOrdering Facility: [facility] Address: [address] [place] [address] Performed By: #### 2 4323-8 ####[facility] [id number] [place] [address] [place] CO2 [Moles/Vol] 22 mmol/L Normal 22-30 [facility] Comment on above: Order Comment: Speci men Type: BLOOD SPECIMENOrdering Facility: [facility] Address: [address] [place] [address] Performed By: #### 2 4323-8 ####[facility]ENTERNCLIA [id number] [place] [address] [place] Creatinine [Mass/Vol] 0.88 mg/dL Normal 0.73-1.22 [facility] Comment on above: Order Comment: Speci men Type: BLOOD SPECIMENOrdering Facility: [facility] Address: [address] [place] [address] Performed By: #### 2 4323-8 ####[facility]ENTERNCLIA [id number] [place] [address] [place] Creatinine and Glomerular filtration rate.predicted panel (S/P/Bld) 93 mL/min/1.73m??? Normal >=60 [facility] Comment on above: Order Comment: Speci men Type: BLOOD SPECIMENOrdering Facility: [facility] Address: [address] [place] [address] Result Comment: Lupe mated Glomerular Filtration Rate [...] accurately reflect actual GFR. Performed By: #### 2 4323-8 ####[facility] [id number] [place] [address] [place] Glucose [Mass/Vol] 108 mg/dL High 74-99 [facility] Comment on above: Order Comment: David olivo Type: BLOOD SPECIMENOrdering Facility: [facility] Address: [address] [place] [address] Result Comment: The [place] [employer] (ADA) provides guidance for cutoff [...] Standards of Medical Care in Diabetes 2016, [place] [employer]. Diabetes Care. 2016.39(Suppl 1). Performed By: #### 2 4323-8 ####[facility]ENTERNCLIA [id number] [place] [address] [place] Potassium [Moles/Vol] 3.9 mmol/L Normal 3.7-5.1 [facility] Comment on above: Order Comment: David olivo Type: BLOOD SPECIMENOrdering Facility: [facility] Address: [address] [place] [address] Performed By: #### 2 4323-8 ####[facility]IPLI [id number] [place] [address] [place] Protein [Mass/Vol] 6.8 g/dL Normal 6.3-8.0 [facility] Comment on above: Order Comment: Speci men Type: BLOOD SPECIMENOrdering Facility: [facility] Address: [address] [place] [address] Performed By: #### 2 4323-8 ####[facility] ELLIOTTLONG BEACHNCLIA [id number] [place] [address] [place] Sodium [Moles/Vol] 138 mmol/L Normal 136-144 [facility] Comment on above: Order Comment: Speci men Type: BLOOD SPECIMENOrdering Facility: [facility] Address: [address] [place] [address] Performed By: #### 2 4323-8 ####[facility]ENTERNCLIA [id number] [place] [address] [place] Urea nitrogen [Mass/Vol] 23 mg/dL Normal 9-24 [facility] Comment on above: Order Comment: Speci men Type: BLOOD SPECIMENOrdering Facility: [facility] Address: [address] [place] [address] Performed By: #### 2 4323-8 ####[facility]ENTERNCLIA [id number] [place] [address] [place] Pulmonary Visit Reporton Pulmonary Visit Report [facility] of [address] [place] [address] OFFICE VISIT Date of Service: 05/13/24 MR#: [id number] Acct: [id number] Name: MACI HOWARD Rep #: [id number] : 1955 Provider: JANE Zelaya Age/Sex: 69/M Location: [facility] Status: Signed Assessment and Plan Assessment and Plan (1) Asthma-COPD overlap syndrome: Status: Inactive Comment: Smoking history, quit over 30 years ago. Not appropriate for LDCT. Plan: Stable, he does not appear to be in exacerbation today. No indication for antibiotics or steroids to be repeated. Continue current maintenance medication, symptomatically controlled with the use of Singulair and Nucala. I did instruct the patient that if he develops another exacerbation I will be placing him on a maintenance inhaler, if you recall he was previously on Breo but did not feel it helped. No additional testing at this time. Contact the office for any new or worsening symptoms. An acute visit and typically be arranged within 1-2 days. Follow-up in 6 months. (2) LESLY (obstructive sleep apnea): Status: Chronic Plan: He is using and benefiting from Pap therapy. No indication for titration study at this time. Contact the office for any new or worsening symptoms in the meantime. Follow-up in 6 months. (3) Obesity (BMI 30.0-34.9): Status: Chronic Plan: Continue to encourage weight loss. (4) Bronchiectasis: Status: Inactive Qualifiers: Bronchiectasis type: with acute exacerbation Qualified Code(s): J47.1 - Bronchiectasis with (acute) exacerbation Comment: CT of the chest from November 212018 documents pleural thickening with pleural parenchymal linear nodular stranding is noted in the right base with some bronchiectasis which could represent chronic changes. Plan: Stable, no indication for antibiotics or steroids today. Plan Details Follow Up: 6 Months ([facility]) HPI HPI Comments Details: This patient presents to the office today for follow-up of his severe asthma with COPD overlap syndrome complicated by obstructive sleep apnea. He is ambulatory and currently on room air. He recently has required several rounds of antibiotics and steroids due to frequent exacerbations. Most recent antibiotics and steroids were completed on approximately a week and a half ago. Daily inhaler? He is compliant with use of Singulair daily. He is not using his albuterol rescue inhaler as frequently recently. He is compliant with Nucala monthly injections. He estimates that he probably utilizes albuterol HFA 1-2 times per month. He was previously treated with Breo, however he did not feel as though it was doing anything for him. He is experiencing shortness of breath, worse with exertion. For example, walking up a flight of steps. Currently his cough is productive of clear-colored sputum. It is less frequent. He denies any hemoptysis. He has occasional wheezing with exertion but denies any chest tightness, chest pain or palpitations. He has not had any fever, chills or body aches. He continues complete smoking cessation. The patient quit smoking over 30 years ago. He reports excellent compliance with his PAP device. He is waking up feeling rested and refreshed. He does occasionally have difficulty with dry mouth. He is not having excessive nocturia. He is not requiring naps and is not nodding off to sleep unintentionally. Compliance report for the past 30 days shows 100% compliance with average use of 6 hours and 26 minutes per night. Current setting is CPAP 13 cmH2O with residual AHI 1.9 events per hour. Leaks do appear to be occurring regularly. 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 Required: No DME Vendor: [employer] Accompanied by: Self Is patient in pain?: No Allergies No Known Allergies Allergy (Verified 05/13/24 11:15) Medications ???Medication ???Instructions ???Recorded ???Confirmed ???Type clopidogrel 75 mg tablet 75 mg PO DINNER antiplatelet/heart 03/11/17 05/13/24 History health pantoprazole 20 mg tablet,delayed 20 mg PO DINNER gerd 03/11/17 05/13/24 History release nitroglycerin 0.4 mg sublingual 0.4 mg sublingual Q5M PRN Chest 02/24/20 05/13/24 Rx tablet Pain #25 tabs mepolizumab 100 mg/mL subcutaneous 100 mg subcut Q4W 08/30/20 05/13/24 History auto-injector montelukast 10 mg tablet 10 mg PO DAILY@1700 #90 tabs 01/06/24 05/13/24 Rx (more content not included)... Normal [facility] Echo Complete W/ Contraston 05-03-2024 Echo Complete W/ Contrast [facility] [address] [place] [address] Echo Complete W/ Contrast 05/03/24 08 MR#: [id number] Acct: [id number] Name: MACI HOWARD Rep #: [id number] : 1955 68 From: Ron Yancey MD Attending Dr: Yoan Leal POLISHER SAND-C Status: REG CLI Ordering Dr: Yoan Leal POLISHER SAND POLISHER SAND-C Date: 05/03/24 Location: [facility] Sex: M C Admitted: Reason For Study: DYSPNEA Procedure This was a 2D Doppler, Color Flow transthoracic echocardiogram. The study was technically difficult. Contrast injection was performed. Exam performed in department. Left Ventricle Normal LV size. Mild concentric left ventricular hypertrophy. Estimated LVEF 55%. Inferior hypokinesis. Normal diastology for age. Right Ventricle Mildly dilated RV. Mild RV systolic dysfunction. Atria The left and right atria are normal. Mitral Valve Mild (1+) mitral valve insufficiency. Tricuspid Valve The tricuspid valve is not well visualized. Aortic Valve Trisinus/trileaflet aortic valve. Pulmonic Valve Trivial pulmonic valve insufficiency. Great Vessels Mildly dilated aortic root. Pericardium/Pleural No pericardial effusion. Medication 22 gauge I.V. with prn adaptor inserted into left arm. Diluted definity 3.5ml given slow IV push to enhance endocardial definition. MMode/2D Measurements Calculations LVIDd: 5.0 cm IVSd: 1.2 cm LVOT diam: 2.3 cm LVIDs: 3.3 cm LVPWd: 1.0 cm RVDd: 4.4 cm FS: 34.9 % LVOT area: 4.3 cm2 asc Aorta Diam: 3.7 cm LAV(MOD-bp): 37.8 ml LVAd ap4: 34.0 cm2 LAV(MOD-bp) Indexed: 16.7 ml/m2 LVLd ap4: 7.7 cm LAV(MOD-sp2): 45.1 ml EDV(MOD-sp4): 123.1 ml LAV(MOD-sp4): 31.1 ml EDV(sp4-el): 127.4 ml LVAs ap4: 21.6 cm2 LVLs ap4: 6.8 cm ESV(MOD-sp4): 55.0 ml ESV(sp4-el): 58.4 ml EF(MOD-sp4): 55.3 % EF(sp4-el): 54.2 % LVAd ap2: 35.4 cm2 SV(MOD-sp4): 68.1 ml SV(MOD-sp2): 67.6 ml LVLd ap2: 7.7 cm EDV(MOD-sp2): 131.0 ml EDV(sp2-el): 137.5 ml LVAs ap2: 23.4 cm2 LVLs ap2: 7.0 cm ESV(MOD-sp2): 63.4 ml ESV(sp2-el): 66.3 ml EF(MOD-sp2): 51.6 % SV(sp4-el): 69.0 ml Ao sinus diam: 4.[address] Junction: 3.0 cm LA dimension(2D): 3.2 cm LA A4 area: 13.5 cm2 RA A4 area: 16.8 cm2 TAPSE: 2.2 cm Time Measurements MV dec time: 0.32 sec Doppler Measurements Calculations MV E max ana: 44.4 cm/sec Lat Peak E' Ana: 9.9 cm/sec Med Peak E' Ana: 8.9 cm/sec MV A max ana: 52.4 cm/sec E/E' lat: 4.5 E/E' med: 5.0 MV E/A: 0.85 MV dec slope: 138.3 cm/sec2 Ao V2 max: 119.9 cm/sec LV V1 max: 87.4 cm/sec Ao max P.7 mmHg LV V1 max P.1 mmHg Ao V2 mean: 90.2 cm/sec LV V1 mean P.9 mmHg Ao mean P.5 mmHg LV V1 mean: 65.8 cm/sec Ao V2 VTI: 23.7 cm LV V1 VTI: 15.8 cm AV (velocity ratio): 0.67 GIOVANNY(I,D): 2.9 cm2 GIOVANNY(V,D): 3.1 cm2 SV(LVOT): 67.7 ml PA V2 max: 111.0 cm/sec PA max PG (full): 2.7 mmHg ECHO/Echo Complete W/ Contrast Interpretation Summary The study was technically difficult. Mild concentric left ventricular hypertrophy. Estimated LVEF 55%. Inferior hypokinesis. Normal diastology for age. Mildly dilated RV. Mild RV systolic dysfunction. Mildly dilated aortic root. Ordering Physician: Yoan Leal Referring Physician: Yoan Leal Performed By: Maryam Patricio DARREN 05/03/24 1428 Date Ron Yancey MD CC: POLISHER SAND-C Yoan Leal; Dr. Elmo Snow MD Date Dictated: 05/03/24808 Date Transcribed: 05/03/241427 Implementation Consultant: Signed [facility] CBC W Auto Differential pane l (Bld)on 11-19-2023 Basophils (Bld) [#/Vol] 0.04 10*3/uL <0.11 k/uL [facility] Basophils/100 WBC (Bld) 0.7 % [facility] Differential cell count method Nom (Bld) Auto [facility] Eosinophils (Bld) [#/Vol] 0.04 10*3/uL <0.46 k/uL [facility] Eosinophils/100 WBC (Bld) 0.7 % [facility] Erythrocyte distribution width (RBC) [Ratio] 13.2 % 11.5 - 15.0 % [facility] Hematocrit (Bld) [Volume fraction] 49.2 % 39.0 - 51.0 % [facility] Hemoglobin (Bld) [Mass/Vol] 16.8 g/dL 13.0 - 17.0 g/dL [facility] Immature granulocytes (Bld) [#/Vol] 0.05 10*3/uL <0.10 k/uL [facility] Immature granulocytes/100 WBC (Bld) 0.8 % [facility] Lymphocytes (Bld) [#/Vol] 1.74 10*3/uL 1.00 - 4.00 k/uL [facility] Lymphocytes/100 WBC (Bld) 28.6 % [facility] MCH (RBC) [Entitic mass] 32.2 pg 26.0 - 34.0 pg [facility] MCHC (RBC) [Mass/Vol] 34.1 g/dL 30.5 - 36.0 g/dL [facility] MCV (RBC) [Entitic vol] 94.3 fL 80.0 - 100.0 fL [facility] Monocytes (Bld) [#/Vol] 0.73 10*3/uL <0.87 k/uL [facility] Monocytes/100 WBC (Bld) 12.0 % [facility] Neutrophils (Bld) [#/Vol] 3.49 10*3/uL 1.45 - 7.50 k/uL [facility] Neutrophils/100 WBC (Bld) 57.2 % [facility] Nucleated RBC (Bld) [#/Vol] <0.01 k/uL [facility] Nucleated RBC/100 WBC (Bld) [Ratio] 0.0 /100 WBC [facility] Platelet mean volume (Bld) [Entitic vol] 9.7 fL 9.0 - 12.7 fL [facility] Platelets (Bld) [#/Vol] 137 10*3/uL Low 150 - 400 k/uL [facility] RBC (Bld) [#/Vol] 5.22 10*6/uL 4.20 - 6.0 0 m/uL [facility] WBC (Bld) [#/Vol] 6.09 10*3/uL 3.70 - 11. 00 k/uL [facility] Comprehensive metabolic 2000 panelon 11-19-2023 Albumin [Mass/Vol] 4.1 g/dL 3.9 - 4.9 g/dL [facility] ALP [Catalytic activity/Vol] 148 U/L High 38 - 113 U/L [facility] ALT [Catalytic activity/Vol] 28 U/L 10 - 54 U/L [facility] Anion gap [Moles/Vol] 12 mmol/L 9 - 18 mmol/L [facility] AST [Catalytic activity/Vol] 27 U/L 14 - 40 U/L [facility] Bilirubin [Mass/Vol] 1.2 mg/dL 0.2 - 1.3 mg/dL [facility] Calcium [Mass/Vol] 9.0 mg/dL 8.5 - 10.2 mg/dL [facility] Chloride [Moles/Vol] 106 mmol/L High 97 - 105 mmol/L [facility] CO2 [Moles/Vol] 22 mmol/L 22 - 30 mmol/L [facility] Creatinine [Mass/Vol] 1.08 mg/dL 0.73 - 1.22 mg/dL [facility] Estimated Glomerular Filtration Rate 74 mL/min/1.73m >=60 mL/min/1.73m [facility] Glucose [Mass/Vol] 89 mg/dL 74 - 99 mg/dL [facility] Potassium [Moles/Vol] 4.1 mmol/L 3.7 - 5.1 mmol/L [facility] Protein [Mass/Vol] 6.9 g/dL 6.3 - 8.0 g/dL [facility] Sodium [Moles/Vol] 140 mmol/L 136 - 144 mmol/L [facility] Urea nitrogen [Mass/Vol] 14 mg/dL 9 - 24 mg/dL [facility] Lipid 1996 panelon 4 Cholesterol [Mass/Vol] 146 mg/dL <200 mg/dL [facility] Cholesterol in HDL [Mass/Vol] 30 mg/dL Low >39 mg/dL [facility] Cholesterol in LDL [Mass/Vol] 96 mg/dL <100 mg/dL [facility] Cholesterol in LDL/Cholesterol in HDL [Mass ratio] 3.20 {ratio} High <2.54 [facility] Cholesterol in VLDL [Mass/Vol] 20 mg/dL <30 mg/dL [facility] Cholesterol non HDL [Mass/Vol] 116 mg/dL <130 mg/dL [facility] Cholesterol.total /Cholesterol in HDL [Mass ratio] 4.87 {ratio} <5.10 [facility] Fasting Time 12 hrs [facility] Triglyceride [Mass/Vol] 102 mg/dL <150 mg/dL [facility] PSA/PROSTSPECAG DIAGon 11-18 Prostate specific Ag [Mass/Vol] 0.26 ng/mL <2.60 ng/mL [facility] CBC W Auto Differential pane l (Bld)on 08-22-2022 Basophils (Bld) [#/Vol] 0.06 10*3/uL <0.11 k/uL [facility] Basophils/100 WBC (Bld) 0.9 % [facility] Differential cell count method Nom (Bld) Auto [facility] Eosinophils (Bld) [#/Vol] 0.06 10*3/uL <0.46 k/uL [facility] Eosinophils/100 WBC (Bld) 0.9 % [facility] Erythrocyte distribution width (RBC) [Ratio] 12.9 % 11.5 - 15.0 % [facility] Hematocrit (Bld) [Volume fraction] 50.1 % 39.0 - 51.0 % [facility] Hemoglobin (Bld) [Mass/Vol] 17.1 g/dL High 13.0 - 17.0 g/dL [facility] Immature granulocytes (Bld) [#/Vol] 0.11 10*3/uL High <0.10 k/uL [facility] Immature granulocytes/100 WBC (Bld) 1.7 % [facility] Lymphocytes (Bld) [#/Vol] 1.73 10*3/uL 1.00 - 4.00 k/uL [facility] Lymphocytes/100 WBC (Bld) 26.1 % [facility] MCH (RBC) [Entitic mass] 31.7 pg 26.0 - 34.0 pg [facility] MCHC (RBC) [Mass/Vol] 34.1 g/dL 30.5 - 36.0 g/dL [facility] MCV (RBC) [Entitic vol] 92.8 fL 80.0 - 100.0 fL [facility] Monocytes (Bld) [#/Vol] 0.65 10*3/uL <0.87 k/uL [facility] Monocytes/100 WBC (Bld) 9.8 % [facility] Neutrophils (Bld) [#/Vol] 4.01 10*3/uL 1.45 - 7.50 k/uL [facility] Neutrophils/100 WBC (Bld) 60.6 % [facility] Nucleated RBC (Bld) [#/Vol] <0.01 k/uL [facility] Nucleated RBC/100 WBC (Bld) [Ratio] 0.0 /100 WBC [facility] Platelet mean volume (Bld) [Entitic vol] 9.2 fL 9.0 - 12.7 fL [facility] Platelets (Bld) [#/Vol] 178 10*3/uL 150 - 400 k/uL [facility] RBC (Bld) [#/Vol] 5.40 10*6/uL 4.20 - 6.0 0 m/uL [facility] WBC (Bld) [#/Vol] 6.62 10*3/uL 3.70 - 11. 00 k/uL [facility] Comprehensive metabolic 2000 panelon 08-22-2022 Albumin [Mass/Vol] 3.9 g/dL 3.9 - 4.9 g/dL [facility] ALP [Catalytic activity/Vol] 111 U/L 38 - 113 U/L [facility] ALT [Catalytic activity/Vol] 21 U/L 10 - 54 U/L [facility] Anion gap [Moles/Vol] 10 mmol/L 9 - 18 mmol/L [facility] AST [Catalytic activity/Vol] 20 U/L 14 - 40 U/L [facility] Bilirubin [Mass/Vol] 0.6 mg/dL 0.2 - 1.3 mg/dL [facility] Calcium [Mass/Vol] 9.2 mg/dL 8.5 - 10.2 mg/dL [facility] Chloride [Moles/Vol] 106 mmol/L High 97 - 105 mmol/L [facility] CO2 [Moles/Vol] 24 mmol/L 22 - 30 mmol/L [facility] Creatinine [Mass/Vol] 1.07 mg/dL 0.73 - 1.22 mg/dL [facility] [facility] Estimated Glomerular Filtration Rate 76 mL/min/1.73m >=60 mL/min/1.73m [facility] Glucose [Mass/Vol] 100 mg/dL High 74 - 99 mg/dL [facility] Potassium [Moles/Vol] 4.2 mmol/L 3.7 - 5.1 mmol/L [facility] Protein [Mass/Vol] 6.7 g/dL 6.3 - 8.0 g/dL [facility] Sodium [Moles/Vol] 140 mmol/L 136 - 144 mmol/L [facility] Urea nitrogen [Mass/Vol] 20 mg/dL 9 - 24 mg/dL [facility] UA DIP, URINE (POC)on 2021 BILIRUBIN UA (POCT) Negative Negative [facility] CLARITY UA (POCT) Clear [facility] COLOR UA (POCT) Dark yellow [facility] GLUCOSE UA (POCT) Negative Negative mg/dL [facility] HEMOGLOBIN/BLOOD UA (POCT) Negative Negative [facility] KETONE UA (POCT) Trace Negative mg/dL [facility] LEUKOCYTES UA (POCT) Negative Negative [facility] NITRITE UA (POCT) Negative Negative [facility] PH UA (POCT) 5.5 4.5 - 8.0 [facility] Protein Ql (U) Negative Negative mg/dL [facility] SPECIFIC GRAVITY UA (POCT) 1.025 1.005 - 1.030 [facility] UROBILINOGEN UA (POCT) 1.0 E.U./dL Normal E.U./dL [facility] AFB Cult and Stainon 018 AFB Cult and Stain Smear Result - No acid fast bacilli seen by fluorochrome stain Culture Result - No Acid Fast Bacilli isolated after [address] [facility] Comment on above: Performed By: #### A FC ####[facility] [place], [place] [phone] Eosin Smron 11-10-2017 Eosinophils 6% EOSINOPHILS PRESE NT (100 WBC COUNTED). Normal [facility] Comment on above: Result Comment: This test was developed and its performance characteristics determined by [facility]'s Dre Patel [facility] Pathology and Laboratory Medicine Lloyd ([facility]).It has not been cleared or approved by the FDA. [facility] is regulated under CLIA as qualified to perform high-complexity testing.This test is used for clinical purposes. It should not be regarded as investigational or for research. Performed By: #### E OSSMR ####[facility] [place], [place] [phone] Fungal Cultureon 11-10-2017 Fungal Culture Culture Result - Rar e Yeast, not Cryptococcus neoformans --> ABNORMAL ALERT No other fungus found. Critically abnormal [facility] Comment on above: Performed By: #### F CUL ####[facility] [address] [place], [place] [phone] Fungal Smearon 11-10-2017 Fungal Smear Smear Result - No fu ngus seen. Normal [facility] Comment on above: Performed By: #### F UNGSM ####[facility] [address] [place], [place] [phone] HISTORY PHYSICALon 8 HISTORY PHYSICAL HNO ID: [id number] thor: Yousuf Matias: Pulmonary DiseaseAuthor Type: PhysicianType: HANDPFiled: 11/10/2017 12:29 PMNote Text:PROCEDURAL SEDATION HISTORY AND PHYSICAL EXAMSERVICE DATE: 11/10/2017SERVICE TIME: 11:30 AMSubjectiveHPI: This is a 62 year old male who presents with chronic cough, recurrentchest infections.Recently seen by local ENT, Dr. Eli, and treated with course of oralantibiotic RX, without change in cough.Recent IgE, eosinophil counts both normal, and RAST [place] panelnegative.Has held Plavix and aspirin for 5 days.PAST ANESTHESIA HISTORY: No history of adverse eventPAST MEDICAL HISTORYDiagnosis Date- Anxiety- Asthma childhood- CAD (coronary artery disease) s/p SHANIQUA to [facility], seeing Dr. Llanos- Depression- Diaphragmatic hernia without mention of obstruction or gangrene- Dyslipidemia- Dysphagia- Dyspnea With wheezing. Spirometry w/o obstruction 02/01 and 06/03. Dr. Coates08/2017. Has seen Dr. Pearl- Esophagitis, unspecified- GERD (gastroesophageal reflux disease)- History of CVA (cerebrovascular accident) 06/20/2014 mild- Obesity (BMI 30.0-34.9)- LESLY (obstructive sleep apnea) Consistently compliant with CPAP.- PFO (patent foramen ovale)- Prostate cancer (HCC) 2012 s/[place], [place]ST SURGICAL HISTORYProcedure Laterality Date- EGD W/O OR W/BRUSH/WASH 05/01/2007 EGD- EGD W/O OR W/BRUSH/WASH 03/21/2013 [facility] EGD- PAST SURGICAL HISTORY OF submandibular gland [...] Take 81 mg by mouth once daily. 11/04/2017YesALLERGIESAllerge n Reactions- Parafon Forte Dsc [*ObjectivePHYSICAL EXAM: GENERAL: Obese, No Distress, [...] bronchialwashing and possible biopsy.SEDATION GOAL: ModerateSIGNATURE: Yousuf Coates MD PATIENT NAME: Maci AndersonmanDATE: November 10, 2017 : 12:22 PM PAGER: [phone] [facility] NURSING PROGon 11-10-2017 NURSING PROG HNO ID: [id number] thor: Lynn (Rn) Jacinta, RNService: NursingAuthor Type: Registered NurseType: Nursing Progress NoteFiled: 11/10/2017 2:04 PMNote Text: Nursing Progress NotePatient Name: Maci HowardMRN: [id number] Location: [place] [facility]/[place] End[place] pt awake and talking to at this time. Denies pain.This note was completed by: Lynn Workman, [id number] pt had sm sips H2O, managed fluids well, VSS. [facility] OPERATIVE NOon 11-10-2017 OPERATIVE NO HNO ID: [id number] thor: Yousuf Matias: Pulmonary DiseaseAuthor Type: PhysicianType: Operative ReportFiled: 11/10/2017 1:13 PMNote Text:11/10/2017DavidkrysmickeyMaci mcgill [id number] bronchoscopy with endobronchial biopsy of the right [...] Biopsy RLL forsurgical pathology.Full note in Provation.Yousuf Coates MD, [facility] Medical Office Building [address] [address]L: [phone]: [phone] [facility] PROCEDUREon 11-10-2017 PROCEDURE HNO ID: [id number] thor: Yousuf Willoughbye: Pulmonary DiseaseAuthor Type: PhysicianType: ProceduresFiled: 11/10/2017 1:14 PMNote Text:11/10/2017DavidMaci ford [id number] bronchoscopy with endobronchial biopsy of the right [...] Biopsy RLL forsurgical pathology.Full note in Provation.Yousuf Coates MD, [facility] Medical Office [address] [address]H: [phone]: [phone] [facility] PT EDon 11-10-2017 PT ED HNO ID: [id number] thor: Rafael (Rn) BRIAN Aguirreervice: NursingAuthor Type: Registered NurseType: Patient EducationFiled: 11/10/2017 2:45 PMNote Text:POST OP LEARNING RESPONSEINSTRUCTION PROVIDED TO: Patient and family memberMETHOD OF INSTRUCTION: Written instruction - handoutsVerbal instructionPATIENT / FAMILY RESPONSE: Information received as demonstrated byinterest and questionsFOLLOW-UP PLAN: Patient instructed to call with any further issuesSUPPLEMENTAL MATERIAL: NoneREFERRAL (RECOMMENDATION): NoneElectronically Signed By: Rafael Aguirre RN [facility] PT ED HNO ID: [id number] thor: Bebe (Rn) BRIAN Carrervice: (none)Author Type: Registered NurseType: Patient EducationFiled: 11/10/2017 11:11 AMNote Text:PRE OP LEARNING ASSESSMENTPROCEDURE/SURGERY: BronchoscopyREADINESS TO LEARNCOGNITIVE ABILITY: Alert and orientedMOTIVATION TO LEARN: InterestedFAMILY SUPPORT: High - Very involved in pt carePATIENT LEARNS BEST BY: Verbal InstructionFACTORS AFFECTING LEARNING: NonePHYSICAL LIMITATIONS AFFECTING LEARNING: NoneElectronically Signed By: Bebe Carr RN [facility] Respiratory Cult/Stainon Respiratory Cult/Stain Smear Result - Few Gram positive cocci --> ABNORMAL ALERT Rare Polymorphonuclear leukocytes Rare Epithelial cells Culture Result - Moderate Normal respiratory christofer present Critically abnormal [facility] Comment on above: Performed By: #### R CULST ####[facility] [place], [place] [phone] SURGICAL PATHOLOGYon 018 SURGICAL PATHOLOGY [facility]: [id number] Physician: Yousuf Coates M.D. FINAL DIAGNOSISLung, right lower lobe, endobronchial [...] submitted in one cassette.Gross examination performed at [facility], [address] [place] [address] 11/10/2017 7:12:29 PMPatient ID #: [id number] of Report: 11/12/2017Date of Procedure: 11/10/2017Date of Receipt: 11/10/2017Submitted by: Yousuf Coates M.D.Location: MEENDDiagnostic interpretation performed at [place] [address]. [facility] Comment on above: Performed By: #### P ATHS ####[facility] [address] [phone] HOSPon 10-06-2017 HOSP Patient:Portillo DMRN: Height:6' 1(1.854 m)Weight:No patient weight recorded within the last [...] days for the following basenames: K,HCTProgress Notes ([facility]):Aledia Garcia, MANDIE, PRESCHOOL SPECIAL EDUCATION TEACHER 10/16/2017 4:45 PM SignedPatient has been identified by name and date of : YesRX INSTRUCTIONS:Patient aware RX will be sent to pharmacy. No need to notify patient.Aleida Garcia PSREmelicarleen Camarena Madisyn Fernandez 10/17/2017 8:40 AM SignedPatient has been identified by name and date of : YesPending Prescriptions Disp Refills SERTRALINE 25 MG TABLET Sig: Take 2 tablets by mouth once daily. KARY: NoRX INSTRUCTIONS:Patient aware RX will be sent to pharmacy. No need to notify patient.Last visit 09/26/17uture visit 12/10/17Last filled 09/10/17 No refills un sure of quantityAltagracia Camarena Madisyn Snow MD 10/17/2017 9:05 AM SignedWill give 50 mg tablet instead. [facility] PROGRESSon 09-19-2017 PROGRESS HNO ID: [id number] thor: Yousuf Matias: (none)Author Type: PhysicianType: Progress [...] and reviewed the outside records noted above.Yousuf Coates MD, [facility] Respiratory Lloyd [facility] Vital Signs Date Time Vital Sign Value Performing Clinician Facility 04-15-2025 08:39-0400 Body mass index (BMI) [Ratio] 28.86 kg/m2 Stephane Nuñez MD Work Phone: [facility] 04-15-2025 08:39-0400 Body temperature 96.3 [degF] Stephane Nuñez MD Work Phone: [facility] 04-15-2025 08:39-0400 Body weight 97.07 kg Stephane Nuñez MD Work Phone: [facility] 04-15-2025 08:39-0400 Diastolic blood pressure 76 mm[Hg] Stephane Nuñez MD Work Phone: [facility] 04-15-2025 08:39-0400 Heart rate 46 /min Stephane Nuñez MD Work Phone: [facility] 04-15-2025 08:39-0400 SaO2% (BldA) [Mass fraction] 96 % Stephane Nuñez MD Work Phone: [facility] 04-15-2025 08:39-0400 Systolic blood pressure 114 mm[Hg] Stephane Nuñez MD Work Phone: [facility] 11-23-2024 09:16-0400 Diastolic blood pressure 76 mm[Hg] Vilma Snow MD Work Phone: [facility] Comment on above: recheck 11-23-2024 09:16-0400 Systolic blood pressure 124 mm[Hg] Vilma Snow MD Work Phone: [facility] Comment on above: recheck 11-23-2024 08:44-0400 Body mass index (BMI) [Ratio] 29.98 kg/m2 Vilma Snow MD Work Phone: [facility] 11-23-2024 08:44-0400 Body weight 103.06 kg Vilma Snow MD Work Phone: [facility] 11-23-2024 08:44-0400 Heart rate 57 /min Vilma Snow MD Work Phone: [facility] 11-23-2024 08:44-0400 Respiratory rate 18 /min Vilma Snow MD Work Phone: [facility] 11-23-2024 08:44-0400 SaO2% (BldA) [Mass fraction] 98 % Vilma Snow MD Work Phone: [facility] 05-25-2024 08:08-0400 Body mass index (BMI) [Ratio] 30.05 kg/m2 Oliva Podlogar DIRECTORY CARRIER.HOME VISITOR Work Phone: [facility] 05-25-2024 08:08-0400 Body weight 103.3 kg Oliva Podlogar DIRECTORY CARRIER.HOME VISITOR Work Phone: [facility] 05-25-2024 08:08-0400 Diastolic blood pressure 88 mm[Hg] Oliva Podlogar DIRECTORY CARRIER.HOME VISITOR Work Phone: [facility] 05-25-2024 08:08-0400 Heart rate 59 /min Oliva Podlogar DIRECTORY CARRIER.HOME VISITOR Work Phone: [facility] 05-25-2024 08:08-0400 Respiratory rate 18 /min Oliva Podlogar DIRECTORY CARRIER.HOME VISITOR Work Phone: [facility] 05-25-2024 08:08-0400 SaO2% (BldA) [Mass fraction] 96 % Oliva Podlogar DIRECTORY CARRIER.HOME VISITOR Work Phone: [facility] 05-25-2024 08:08-0400 Systolic blood pressure 124 mm[Hg] Oliva Podlogar DIRECTORY CARRIER.HOME VISITOR Work Phone: [facility] 11-19-2023 08:36-0400 Body weight 106.14 kg Vilma Snow MD Work Phone: [facility] 11-19-2023 08:36-0400 Diastolic blood pressure 70 mm[Hg] Vilma Snow MD Work Phone: [facility] 11-19-2023 08:36-0400 Heart rate 74 /min Vilma Snow MD Work Phone: [facility] 11-19-2023 08:36-0400 Respiratory rate 16 /min Vilma Snow MD Work Phone: [facility] 11-19-2023 08:36-0400 Systolic blood pressure 124 mm[Hg] Vilma Snow MD Work Phone: [facility] 02-19-2023 08:30-0400 SaO2% (BldA) [Mass fraction] 95 % Vilma Snow MD Work Phone: [facility] 08-22-2022 09:39-0500 Body weight 107.41 kg Vilma Snow MD Work Phone: [facility] 08-22-2022 09:39-0500 Diastolic blood pressure 70 mm[Hg] Vilma Snow MD Work Phone: [facility] 08-22-2022 09:39-0500 Heart rate 63 /min Vilma Snow MD Work Phone: [facility] 08-22-2022 09:39-0500 Respiratory rate 16 /min Vilma Snow MD Work Phone: [facility] 08-22-2022 09:39-0500 SaO2% (BldA) [Mass fraction] 97 % Vilma Snow MD Work Phone: [facility] 08-22-2022 09:39-0500 Systolic blood pressure 106 mm[Hg] Vilma Snow MD Work Phone: [facility] 08-16-2022 08:08-0500 Body height 185.4 cm Inderjit Peraza PA-C Work Phone: [facility] 08-16-2022 08:08-0500 Body temperature 98.01 [degF] Inderjit Peraza PA-C Work Phone: [facility] 08-16-2022 08:08-0500 Body weight 106.14 kg Inderjit Peraza PA-C Work Phone: [facility] 08-16-2022 08:08-0500 Diastolic blood pressure 84 mm[Hg] Inderjit Peraza PA-C Work Phone: [facility] 08-16-2022 08:08-0500 Heart rate 82 /min Inderjit Peraza PA-C Work Phone: [facility] 08-16-2022 08:08-0500 Respiratory rate 20 /min Inderjit Peraza PA-C Work Phone: [facility] 08-16-2022 08:08-0500 SaO2% (BldA) [Mass fraction] 97 % Inderjit Peraza PA-C Work Phone: [facility] 08-16-2022 08:08-0500 Systolic blood pressure 110 mm[Hg] Inderjit Peraza PA-C Work Phone: [facility] Encounters Encounter Date Encounter Type Care Provider Facility Start: 04-21-2025 ambulatory Gisel Zelaya POLISHER SAND Fac ility:[facility] Start: 04-15-2025 End: 04-15-2025 Patient encounter procedure Stephane Nuñez MD Work Phone: Hematology/Oncology Start: 04-15-2025 End: 04-15-2025 ambulatory Stephane Nuñez MD Work Phone: Hematology/Oncology Comment on above: Thrombocytopenia (Pr imary Dx) Start: 04-14-2025 End: 04-14-2025 ambulatory Vickie Dumont [facility]AN [facility] Start: 04-14-2025 End: 04-14-2025 Patient encounter procedure Vickie Tim ROLAND [facility] Comment on above: Population Health Na vigation Outreach ([facility] SPRINT LIST) Start: 04-01-2025 ambulatory VILMA Ramirez acility:[facility] Start: 04-01-2025 End: 04-01-2025 Subsequent hospital visit by physician [facility] (I-Stat/1.5t) Work Phone: Radiology Comment on above: Fatty (change of) li lu, not elsewhere classified [K76.0] Start: 03-23-2025 End: 03-23-2025 ambulatory VILMA SNOW Facility:[facility] Start: 03-21-2025 End: 03-21-2025 ambulatory Gisel Zelaya NP Facility:[facility] Start: 03-04-2025 End: 03-07-2025 Follow-up encounter Vilma Snow MD Work Phone: [facility] [place] Comment on above: Refill Request Start: 03-02-2025 End: 03-02-2025 ambulatory VILMA SNOW Facility:[facility] Start: 02-28-2025 End: 03-04-2025 ambulatory Vilma Snow MD Work Phone: [facility] [place] Comment on above: Lab Start: 02-28-2025 End: 03-01-2025 Telephone encounter Stephane Nuñez MD Work Phone: Hematology/Oncology Comment on above: New Patient Start: 02-24-2025 End: 02-24-2025 Follow-up encounter Vilma Snow MD Work Phone: [facility] [place] Start: 02-24-2025 End: 02-24-2025 ambulatory VILMA SNOW Facility:[facility] Start: 02-21-2025 End: 02-21-2025 ambulatory Gisel Zelaya POLISHER SAND Facility:[facility] Start: 01-28-2025 End: 01-28-2025 ambulatory Moy Katz Facility:[facility] Start: 01-21-2025 End: 01-21-2025 ambulatory Elmo Snow Facility:[facility] Start: 12-24-2024 End: 12-24-2024 ambulatory Elmochey Snow Facility:[facility] Start: 12-20-2024 End: 12-20-2024 Refill Whit Hernandez APRN.CNP Work Phone: [facility] [place] Comment on above: Refill Request Start: 12-07-2024 ambulatory VILMA SNOW F acility:[facility] Start: 12-07-2024 End: 12-07-2024 Subsequent hospital visit by physician [facility] Work Phone: Radiology Comment on above: Elevated alkaline ph osphatase level [R74.8] Start: 11-26-2024 End: 11-26-2024 ambulatory Gisel Zelaya POLISHER SAND Facility:[facility] Start: 11-24-2024 End: 11-24-2024 Follow-up encounter Vilma Snow MD Work Phone: [facility] [place] Comment on above: Results Start: 11-23-2024 End: 11-23-2024 ambulatory VILMA SNOW Facility:[facility] Start: 11-23-2024 End: 11-23-2024 Patient encounter procedure Vilma Snow MD Work Phone: [facility] [place] Comment on above: Coronary artery dise ase involving chicken ranch heart without angina pectoris, unspecified vessel or lesion type (Primary Dx); Severe persistent asthma, uncomplicated (HCC); Chronic obstructive pulmonary disease, unspecified COPD type (HCC); Essential hypertension; Hyperlipidemia, unspecified hyperlipidemia type; LESLY on CPAP; History of prostate cancer; Gastroesophageal reflux disease, unspecified whether esophagitis present; S/P prostatectomy; Screening for colon cancer; Encounter for immunization Start: 11-11-2024 End: 11-11-2024 ambulatory Elmo Snow Facility:[facility] Start: 10-29-2024 End: 10-29-2024 ambulatory Gisel Zelaya NP Facility:[facility] Start: 10-01-2024 End: 10-01-2024 ambulatory Gisel Zelaya POLISHER SAND Facility:[facility] Start: 09-13-2024 End: 09-13-2024 Refill Vilma Snow MD Work Phone: [facility] [place] Comment on above: Refill Request Start: 09-03-2024 End: 09-03-2024 ambulatory Gisel Zelaya POLISHER SAND Facility:[facility] Start: 09-01-2024 End: 09-01-2024 Refill Vilma Snow MD Work Phone: [facility] [place] Comment on above: Refill Request Start: 08-06-2024 End: 08-06-2024 ambulatory Gisel Zelaya POLISHER SAND Facility:[facility] Start: 07-09-2024 End: 07-09-2024 ambulatory Gisel Zelaya POLISHER SAND Facility:[facility] Start: 07-05-2024 End: 07-05-2024 ambulatory Yoan Leal POLISHER SAND Facility:[facility] Start: 06-28-2024 End: 06-28-2024 Refill Oliva Wong APRN.CNP Work Phone: [facility] [place] Comment on above: Refill Request Start: 06-15-2024 ambulatory Yoan Leal POLISHER SAND Facility :[facility] Start: 06-11-2024 End: 06-11-2024 ambulatory Gisel Zelaya POLISHER SAND Facility:[facility] Start: 06-11-2024 ambulatory Yoan Leal POLISHER SAND Facility :[facility] Start: 06-11-2024 End: 06-11-2024 ambulatory Yoan Leal POLISHER SAND Facility:[facility] Start: 05-25-2024 End: 05-25-2024 Patient encounter procedure Oliva Wong DIRECTORY CARRIER.HOME VISITOR Work Phone: [facility] Comment on above: Essential hypertensi on (Primary Dx); Encounter for immunization; Obesity, Class I, BMI 30-34.9; Thrombocytopenia (HCC); Elevated alkaline phosphatase level; Hyperlipidemia, unspecified hyperlipidemia type; History of prostate cancer; Coronary artery disease involving chicken ranch heart without angina pectoris, unspecified vessel or lesion type; History of CVA (cerebrovascular accident); LESLY on CPAP; SOB (shortness of breath) Start: 05-25-2024 End: 05-25-2024 ambulatory OLIVA WONG Facility:[facility] Start: 05-24-2024 End: 05-24-2024 ambulatory VILMA SNOW Facility:[facility] Start: 2024 End: 2024 ambulatory Elmo Snow Facility:[facility] Start: 2024 End: 2024 ambulatory Gisel Zelaya POLISHER SAND Facility:[facility] Start: 05-03-2024 ambulatory Ron Yancey Facility:[facility] Start: 05-03-2024 End: 05-03-2024 ambulatory Yoan Leal POLISHER SAND Facility:[facility] Start: 03-02-2024 Refill Whit marcum APRN.CNP Work Phone: [facility] Comment on above: Refill Request Start: 01-28-2024 Telephone encounter Elmo Snow MD Work Phone: [facility] Comment on above: Results Start: 12-24-2023 Telephone encounter Elmo Snow MD Work Phone: [facility] Comment on above: Results Start: 11-20-2023 Telephone encounter Elmo Snow MD Work Phone: [facility] [place] Comment on above: Results Start: 11-19-2023 Telephone encounter Inderjit talbot PA-C Work Phone: Urology Comment on above: PSA question Start: 11-19-2023 End: 11-19-2023 Patient encounter procedure Vilma Snow MD Work Phone: [facility] [place] Comment on above: Diarrhea, unspecifie d type (Primary Dx); Essential hypertension; Hyperlipidemia, unspecified hyperlipidemia type; Coronary artery disease involving chicken ranch heart without angina pectoris, unspecified vessel or lesion type; History of CVA (cerebrovascular accident); LESLY on CPAP; Screening for colon cancer; History of prostate cancer; S/P prostatectomy; Severe persistent asthma, uncomplicated; Chronic bronchitis, unspecified chronic bronchitis type (HCC); Gastroesophageal reflux disease, unspecified whether esophagitis present Start: 11-18-2023 Refill Whit marcum APRN.HOME VISITOR Work Phone: [facility] [place] Comment on above: Refill Request Start: 07-03-2023 Telephone encounter Elmo Snow MD Work Phone: [facility] [place] Comment on above: Results Start: 06-26-2023 Refill Oliva Wong APRN.HOME VISITOR Work Phone: [facility] [place] Comment on above: Refill Request Start: 02-20-2023 Telephone encounter Elmo Snow MD Work Phone: [facility] [place] Comment on above: Results Start: 02-19-2023 End: 02-19-2023 Patient encounter procedure Vilma Snow MD Work Phone: [facility] [place] Comment on above: Severe persistent as thma, uncomplicated (Primary Dx); SOB (shortness of breath); Coronary artery disease involving chicken ranch heart without angina pectoris, unspecified vessel or lesion type; Essential hypertension; Hyperlipidemia, unspecified hyperlipidemia type; LESLY on CPAP; History of CVA (cerebrovascular accident); Elevated prostate specific antigen (PSA); Sensation of fullness in both ears; S/P prostatectomy; History of prostate cancer; Chronic bronchitis, unspecified chronic bronchitis type (HCC) Start: 12-16-2022 Refill Vilma Snow MD Work Phone: [facility] [place] Comment on above: Refill Request Start: 08-22-2022 End: 08-22-2022 Patient encounter procedure Vilma Snow MD Work Phone: [facility] [place] Comment on above: Essential hypertensi on (Primary Dx); Coronary artery disease involving chicken ranch heart without angina pectoris, unspecified vessel or lesion type; SOB (shortness of breath); Severe persistent asthma, uncomplicated; LESLY on CPAP; History of CVA (cerebrovascular accident); Prostate cancer (HCC); Elevated prostate specific antigen (PSA); Gastroesophageal reflux disease, unspecified whether esophagitis present; Screening for colon cancer; Anxiety with depression Start: 08-21-2022 Refill Vilma Snow MD Work Phone: [facility] [place] Comment on above: Refill Request; Refi ll Request Start: 08-16-2022 End: 08-16-2022 Patient encounter procedure Inderjit Peraza PA-C Work Phone: Urology Comment on above: Personal history of prostate cancer (Primary Dx) Start: 12-25-2021 Refill Vilma Snow MD Work Phone: [facility] [place] Comment on above: Refill Request Start: 11-13-2021 Refill Vilma Snow MD Work Phone: [facility] [place] Comment on above: Refill Request Start: 11-10-2017 End: 11-10-2017 [facility] Start: 09-17-2017 Ambulatory [facility] ospital Procedures Date Procedure Procedure Detail Performing Clinician Start: 12-07-2024 Us abdominal real ti me w/image limited Vilma Snow MD Work Phone: Start: 11-23-2024 [email or web address] COVI D-19 VACCINE AGE 12+ YR (COMIRNATY) Vilma Snow MD Work Phone: Start: 11-23-2024 Lipid 1996 panel - S patricia or Plasma Vilma Snow MD Work Phone: Start: 05-25-2024 [employer] COVI D-19 VACCINE AGE 12+ YR (COMIRNATY) Oliva Wong DIRECTORY CARRIER.HOME VISITOR Work Phone: Start: 11-19-2023 Lipid 1996 panel - S patricia or Plasma Vilma Snow MD Work Phone: Start: 07-02-2023 Lipid 1996 panel - S patricia or Plasma Whit Hernandez DIRECTORY CARRIER.HOME VISITOR Work Phone: Start: 02-19-2023 H/O: surgery S/P prostatectomy Aram Snow MD Work Phone: Start: 02-19-2023 Lipid 1996 panel - S patricia or Plasma Oliva Wong DIRECTORY CARRIER.HOME VISITOR Work Phone: Start: 08-16-2022 Urnls dip stick/tabl et rgnt auto w/o microscopy Inderjit Peraza PA-C Work Phone: Start: 02-02-2021 Adult depression screening assessment Vilma Snow MD Work Phone: H/O: surgery S/P prostatectomy Elmo Snow MD Work Phone: H/O: surgery S/P prostatectomy Elmo Snow MD Work Phone: Plan of Treatment Date Care Activity Detail Author Start: 11-23-2029 Lipid panel Lipid Screening [facility] Start: 11-18-2028 Lipid panel Lipid Screening [facility] Start: 07-02-2028 Lipid panel Lipid Screening [facility] Start: 02-20-2028 Lipid 1996 panel - Serum or Plasma Lipid Screening [facility] Start: 02-20-2028 LIPID SCREEN LIPID SCREEN [facility] Start: 12-11-2027 Urine microalbumin profile [facility] Start: 11-24-2027 Diabetes Screening Diabetes Screenin g [facility] Start: 10-14-2027 PROSTATE CANCER SCREENING DISCUSSION PROSTATE CANCER SCREENING DISCUSSION [facility] Start: 08-14-2027 PROSTATE CANCER SCREENING DISCUSSION PROSTATE CANCER SCREENING DISCUSSION [facility] Start: 05-24-2027 Diabetes Screening Diabetes Screenin g [facility] Start: 12-19-2026 Diabetes Screening Diabetes Screenin g [facility] Start: 11-18-2026 Diabetes Screening Diabetes Screenin g [facility] Start: 08-09-2026 PROSTATE CANCER SCREENING DISCUSSION PROSTATE CANCER SCREENING DISCUSSION [facility] Start: 02-19-2026 DIABETES SCREEN DIABETES SCREEN [facility] Start: 02-19-2026 Diabetes Screening Diabetes Screenin g [facility] Start: 02-02-2026 LIPID SCREEN LIPID SCREEN [facility] Start: 11-26-2025 Screening for malign ant neoplasm of colon [facility] Start: 11-23-2025 Annual PCP Team Pharmacovigilance Specialist payton Disease Visit Annual PCP Team Chronic Disease Visit [facility] Start: 11-23-2025 BP Controlled (<130/80) BP Controlle d (<130/80) [facility] Start: 11-23-2025 Hepatitis B surface antibody level LDL Cholesterol [facility] Start: 11-23-2025 RSV Vaccine (1 - Ris k 60-74 years 1-dose series) RSV Vaccine (1 - Risk 60-74 years 1-dose series) [facility] Comment on above: Postponed from 05/13 (Declined at this time) Start: 11-23-2025 Shingrix Vaccine (1 of 2) Shingrix Vaccine (1 of 2) [facility] Comment on above: Postponed from 05/13 (Declined at this time) Start: 08-22-2025 DIABETES SCREEN DIABETES SCREEN [facility] Start: 05-25-2025 Annual PCP Team Pharmacovigilance Specialist payton Disease Visit Annual PCP Team Chronic Disease Visit [facility] Start: 05-25-2025 End: 05-25-2025 Patient encounter procedure [facility] [place] Comment on above: 6 month follow up annual wellness, 6 m [facility] follow up HCC Closure annual wellness, 6 m [facility] follow up Start: 05-05-2025 End: 05-05-2025 ambulatory [facility] Comment on above: CBC* 3 wkOV*EARLY LABS Start: 04-18-2025 Influenza vaccination Influenza Vacc ine (#1) [facility] Start: 04-15-2025 End: 04-15-2025 [facility] Comment on above: CBC CBC/OV* Start: 03-23-2025 End: 03-23-2025 ambulatory Hematology/Oncology Comment on above: POLISHER SAND/THROMBOCYTOPENIA/ REF PROV DR SNOW/LABS 03/02* POLISHER SAND/THROMBOCYTOPENIA/ REF PROV DR SNOW/LABS 03/02* 1st avail Start: 03-02-2025 End: 03-02-2025 ambulatory 03/02/2025 7:15 AM EDT Results Only [facility] [address] [place] [address] [facility] Start: 03-01-2025 End: 05-31-2025 aPTT in Platelet poor plasma by Coagulation assay ACTIVATED PARTIAL THROMBOPLASTIN TIME Lab Routine Thrombocytopenia Expected: 03/01/2025, Expires: 05/31/2025 [facility] Comment on above: Expected: 03/01/2025 , Expires: 05/31/2025 Start: 03-01-2025 End: 05-31-2025 CBC W Auto Differential panel - Blood COMPLETE BLOOD COUNT AND DIFFERENTIAL Lab Routine Thrombocytopenia Expected: 03/01/2025, Expires: 05/31/2025 [facility] Work Phone: Comment on above: Expected: 03/01/2025 , Expires: 05/31/2025 Start: 03-01-2025 End: 05-31-2025 Lactate dehydrogenase [Enzymatic activity/volume] in Serum or Plasma LACTATE DEHYDROGENASE Lab Routine Thrombocytopenia Expected: 03/01/2025, Expires: 05/31/2025 [facility] Comment on above: Expected: 03/01/2025 , Expires: 05/31/2025 Start: 03-01-2025 End: 05-31-2025 PT panel - Platelet poor plasma by Coagulation assay PROTHROMBIN TIME Lab Routine Thrombocytopenia Expected: 03/01/2025, Expires: 05/31/2025 [facility] Comment on above: Expected: 03/01/2025 , Expires: 05/31/2025 Start: 02-23-2025 End: 05-25-2025 CBC W Auto Differential panel - Blood COMPLETE BLOOD COUNT AND DIFFERENTIAL Lab Routine Thrombocytopenia Expected: 02/23/2025, Expires: 05/25/2025 [facility] Comment on above: Expected: 02/23/2025 , Expires: 05/25/2025 Start: 02-23-2025 End: 02-23-2025 ambulatory 02/23/2025 7:00 AM EDT Results Only [facility] [address] [place] [address] [facility] Start: 11-23-2024 End: 11-23-2024 Patient encounter procedure 11/23/2024 8:40 AM EDT Office Visit Family [facility] [address] [place] [address] Vilma Snow MD [address] [place] [address] 6 month follow up [facility] Comment on above: 6 month follow up Start: 11-20-2024 Screening for malign ant neoplasm of colon [facility] Start: 11-18-2024 Annual PCP Team Pharmacovigilance Specialist payton Disease Visit Annual PCP Team Chronic Disease Visit [facility] Start: 11-18-2024 BP Controlled (<130/80) BP Controlle d (<130/80) [facility] Start: 11-18-2024 Hepatitis B surface antibody level LDL Cholesterol [facility] Start: 08-18-2024 Advance Directive Discussion Advance Directive Discussion [facility] Start: 08-18-2024 Medicare Advantage Annual Wellness Visit Medicare Advantage Annual Wellness Visit [facility] Start: 08-17-2024 Behavioral Health Screening Behavioral Health Screening [facility] Comment on above: Postponed from 08/18 (Declined at this time) Start: 08-17-2024 Depression Assessment Depression Ass essment [facility] Comment on above: Postponed from 08/18 (Declined at this time) Start: 08-09-2024 DIABETES SCREEN DIABETES SCREEN [facility] Start: 07-02-2024 Hepatitis B surface antibody level LDL Cholesterol [facility] Start: 05-25-2024 End: 05-25-2024 Patient encounter procedure [facility] Comment on above: 6 mo follow up Start: 04-18-2024 Influenza vaccination Influenza Vacc ine (#1) [facility] Start: 02-20-2024 ANNUAL PCP TEAM BREW HOUSE SUPERVISOR PAYTON DISEASE VISIT ANNUAL PCP TEAM CHRONIC DISEASE VISIT [facility] Start: 02-20-2024 BP CONTROLLED (<130/80) BP CONTROLLE D (<130/80) [facility] Start: 02-20-2024 Hepatitis B surface antibody level LDL CHOLESTEROL [facility] Start: 01-24-2024 End: 04-24-2024 CBC W Ordered Manual Differential panel - Blood PATHOLOGIST INTERPRETATION WITH CBC AND DIFF Lab Routine Thrombocytopenia (HCC) Expected: 01/24/2024, Expires: 04/24/2024 [facility] Work Phone: Comment on above: Expected: 01/24/2024 , Expires: 04/24/2024 Start: 01-24-2024 End: 04-24-2024 Hepatitis C virus Ab [Presence] in Serum HEPATITIS C ANTIBODY IA WITH CONFIRMATION Lab Routine Thrombocytopenia (HCC) Expected: 01/24/2024, Expires: 04/24/2024 [facility] Comment on above: Expected: 01/24/2024 , Expires: 04/24/2024 Start: 01-24-2024 End: 04-24-2024 HIV 1+2 Ab [Presence] in Serum or Plasma by Immunoassay HIV 1/2 COMBO WITH REFLEX TO DIFFERENTIATION Lab Routine Thrombocytopenia (HCC) Expected: 01/24/2024, Expires: 04/24/2024 [facility] Comment on above: Expected: 01/24/2024 , Expires: 04/24/2024 Start: 12-20-2023 End: 03-20-2024 ALK PHOS ISOENZYM BL ALK PHOS ISOENZYM BL Lab Routine Elevated alkaline phosphatase level Expected: 12/20/2023, Expires: 03/20/2024 [facility] Work Phone: Comment on above: Expected: 12/20/2023 , Expires: 03/20/2024 Start: 12-20-2023 End: 03-20-2024 CBC W Auto Differential panel - Blood CBC + DIFF Lab Routine Thrombocytopenia (HCC) Expected: 12/20/2023, Expires: 03/20/2024 [facility] Work Phone: Comment on above: Expected: 12/20/2023 , Expires: 03/20/2024 Start: 12-20-2023 End: 03-20-2024 Comprehensive metabolic 2000 panel - Serum or Plasma COMP METABOLIC PANEL Lab Routine Elevated alkaline phosphatase level Expected: 12/20/2023, Expires: 03/20/2024 [facility] Work Phone: Comment on above: Expected: 12/20/2023 , Expires: 03/20/2024 Start: 12-20-2023 End: 03-20-2024 Gamma glutamyl transferase [Enzymatic activity/volume] in Serum or Plasma GGT BLD Lab Routine Elevated alkaline phosphatase level Expected: 12/20/2023, Expires: 03/20/2024 [facility] Work Phone: Comment on above: Expected: 12/20/2023 , Expires: 03/20/2024 Start: 10-03-2023 Covid-19 Vaccine () Covid-19 Vaccine () [facility] Start: 08-23-2023 COLORECTAL CANCER SCREENING COLORECTAL CANCER SCREENING [facility] Start: 08-23-2023 FECAL OCCULT BLOOD FECAL OCCULT BLOO D [facility] Start: 08-23-2023 Screening for malign ant neoplasm of colon [facility] Start: 08-22-2023 ANNUAL PCP TEAM BREW HOUSE SUPERVISOR PAYTON DISEASE VISIT ANNUAL PCP TEAM CHRONIC DISEASE VISIT [facility] Start: 08-22-2023 BP CONTROLLED (<130/80) BP CONTROLLE D (<130/80) [facility] Start: 08-22-2023 SHINGRIX VACCINE (1 of 2) SHINGRIX VACCINE (1 of 2) [facility] Comment on above: Postponed from 05/13 (Declined at this time) Start: 08-18-2023 Advance Directive Discussion Advance Directive Discussion [facility] Start: 08-18-2023 Depression Assessment Depression Ass essment [facility] Start: 05-23-2023 End: 07-23-2023 LIPID PANEL, NONFASTING LIPID PANEL, NONFASTING Lab Routine Hyperlipidemia, unspecified hyperlipidemia type Expected: 05/23/2023, Expires: 07/23/2023 [facility] Work Phone: Comment on above: Expected: 05/23/2023 , Expires: 07/23/2023 Start: 04-18-2023 Covid-19 Vaccine () Covid-19 Vaccine () [facility] Start: 04-18-2023 Influenza vaccination C [facility] Start: 02-19-2023 End: 04-21-2023 Comprehensive metabolic 2000 panel - Serum or Plasma [facility] Work Phone: Comment on above: Expected: 02/19/2023 , Expires: 04/21/2023 Start: 02-19-2023 End: 04-21-2023 LIPID PANEL, NONFASTING [facility] Work Phone: Comment on above: Expected: 02/19/2023 , Expires: 04/21/2023 Start: 02-14-2023 Influenza vaccination INFLUENZA (#1) [facility] Comment on above: Postponed from 04/18 (Declined at this time) Start: 11-20-2022 End: 01-20-2023 LIPID PANEL, NONFASTING LIPID PANEL, NONFASTING Lab Routine Coronary artery disease involving chicken ranch heart without angina pectoris, unspecified vessel or lesion type Expected: 11/20/2022, Expires: 01/20/2023 [facility] Work Phone: Comment on above: Expected: 11/20/2022 , Expires: 01/20/2023 Start: 10-15-2022 End: 12-15-2022 Prostate specific Ag [Mass/volume] in Serum or Plasma PSA/PROSTSPECAG DIAG Lab Routine Personal history of prostate cancer Expected: 10/15/2022 (Approximate), Expires: 12/15/2022 [facility] Work Phone: Comment on above: Expected: 10/15/2022 (Approximate), Expires: 12/15/2022 Start: 08-18-2022 ADVANCE DIRECTIVE DISCUSSION ADVANCE DIRECTIVE DISCUSSION [facility] Start: 08-18-2022 DEPRESSION ASSESSMENT DEPRESSION ASS ESSMENT [facility] Start: 08-09-2022 ANNUAL PCP TEAM BREW HOUSE SUPERVISOR PAYTON DISEASE VISIT ANNUAL PCP TEAM CHRONIC DISEASE VISIT [facility] Start: 04-18-2022 Influenza vaccination INFLUENZA (#1) [facility] Start: 02-02-2022 Adult depression screening assessment DEPRESSION SCREENING [facility] Start: 02-02-2022 Hepatitis B surface antibody level LDL CHOLESTEROL [facility] Start: 09-29-2021 COVID-19 VACCINE (4 - Booster for Pfizer series) COVID-19 VACCINE (4 - Booster for Pfizer series) [facility] Start: 08-18-2021 ADVANCE DIRECTIVE DISCUSSION ADVANCE DIRECTIVE DISCUSSION [facility] Start: 06-24-2020 COLORECTAL CANCER SCREENING COLORECTAL CANCER SCREENING [facility] Start: 06-24-2020 FECAL OCCULT BLOOD FECAL OCCULT BLOO D [facility] Start: 2014 RSV Vaccine (1 - 1-d ose 60+ series) RSV Vaccine (1 - 1-dose 60+ series) [facility] Start: 2014 RSV Vaccine (1 - Ris k 60-74 years 1-dose series) RSV Vaccine (1 - Risk 60-74 years 1-dose series) [facility] Start: 2004 SHINGRIX VACCINE (1 of 2) SHINGRIX VACCINE (1 of 2) [facility] Start: 1999 COLOGUARD (FIT-DNA) COLOGUARD (FIT-D NA) [facility] Start: 1999 Colonoscopy COLONOSCOPY [facility] Start: [address] COLONOGRAPHY [facility] Start: 1999 Screening for malign ant neoplasm of colon [facility] Start: 1999 SIGMOIDOSCOPY SIGMOIDOSCOPY [facility] Start: 1984 Zoledronic acid therapy Alpha- 1 Antitrypsin Deficiency Screening [facility] Start: 1972 Anxiety Screening Anxiety Screening [facility] Start: 1972 BP CONTROLLED (<130/80) BP CONTROLLE D (<130/80) [facility] Start: 1972 Depression Screening Depression Scre ening [facility] Hemoglobin.gastroint est inal.lower [Presence] in Stool by Immunoassay FECAL OCCULT BLOOD TEST Lab Routine Screening for colon cancer 08/23/2022 6:18 AM EST [facility] Work Phone: Hemoglobin.gastroint est inal.lower [Presence] in Stool by Immunoassay FECAL OCCULT BLOOD TEST Lab Routine Screening for colon cancer Ordered: 11/19/2023 [facility] Work Phone: Comment on above: Ordered: 11/19/2023 Hemoglobin.gastroint est inal.lower [Presence] in Stool by Immunoassay IMMUNOCHEMICAL FECAL OCCULT BLOOD TEST Lab Routine Screening for colon cancer Ordered: 11/23/2024 [facility] Work Phone: Comment on above: Ordered: 11/23/2024 MR Liver WO and W contrast IV MRI LIVER WO/W IVCON Radiology Routine Fatty (change of) liver, not elsewhere classified 04/01/2025 8:56 AM EDT [facility] Work Phone: POST VOID RESIDUAL POST VOID RES IDUAL Procedures Routine Personal history of prostate cancer Ordered: 08/16/2022 [facility] Work Phone: Comment on above: Ordered: 08/16/2022 End: 12-24-2025 US Abdomen RUQ US ABD RIGHT UPPER QUADRANT Radiology Routine Elevated alkaline phosphatase level 1 Occurrences starting 11/24/2024 until 12/24/2025 [facility] Work Phone: Comment on above: 1 Occurrences starti ng 11/24/2024 until 12/24/2025 [facility] Immunizations Immunization Date Immunization Notes Care Provider [facility] 11-23-2024 COVID-19 vaccine, ag e 12+ yr (PFIZER-BIONTECH COMIRNATY) Vilma Snow MD Work Phone: [facility] 05-25-2024 COVID-19 vaccine, ag e 12+ yr (PFIZER-BIONTECH COMIRNATY) Oliva Wong DIRECTORY CARRIER.HOME VISITOR Work Phone: [facility] 05-25-2024 influenza, high dose seasonal, preservative-free Oliva Wong DIRECTORY CARRIER.HOME VISITOR Work Phone: [facility] 05-25-2024 influenza virus vaccine, unspecified formulation Vilma Snow MD Work Phone: [facility] 06-02-2023 influenza virus vaccine, unspecified formulation Whit Hernandez DIRECTORY CARRIER.HOME VISITOR Work Phone: [facility] 05-18-2021 influenza, high dose seasonal, preservative-free Vilma Snow MD Work Phone: [facility] 05-18-2021 influenza virus vaccine, unspecified formulation Oliva Marvin AYALAN.HOME VISITOR Work Phone: [facility] 10-24-2020 COVID-19 vaccine, ag e 12+ yr (PFIZER-BIONTECH - [facility]) Vilma Snow MD Work Phone: [facility] 10-04-2020 COVID-19 vaccine, ag e 12+ yr (PFIZER-BIONTECH - [facility]) Vilma Snow MD Work Phone: [facility] 06-21-2019 influenza, high dose seasonal, preservative-free Vilma Snow MD Work Phone: [facility] 06-21-2019 pneumococcal polysaccharide vaccine, 23 valent Vilma Snow MD Work Phone: [facility] 06-12-2018 influenza, injectabl e, quadrivalent, contains preservative Vilma Snow MD Work Phone: [facility] 12-10-2017 tetanus and diphther ia toxoids, adsorbed, preservative free, for adult use (5 Lf of tetanus toxoid and 2 Lf of diphtheria toxoid) Vilma Snow MD Work Phone: [facility] 09-26-2017 pneumococcal conjuga te vaccine, 13 valent Vilma Snow MD Work Phone: [facility] 05-31-2016 influenza, injectabl e, quadrivalent, contains preservative Vilma Snow MD Work Phone: [facility] 07-25-2015 influenza, injectabl e, quadrivalent, contains preservative Vilma Snow MD Work Phone: [facility] 05-27-2014 influenza, seasonal, injectable Vilma Snow MD Work Phone: [facility] 03-03-2007 tetanus toxoid, redu greg diphtheria toxoid, and acellular pertussis vaccine, adsorbed Vilma Snow MD Work Phone: [facility] Work Phone: 11-20-1993 diphtheria and tetan us toxoids, adsorbed for pediatric use Vilma Snow MD Work Phone: [facility] Work Phone: Payers Date Payer Category Payer Self-pay 2021 Medicare [employer] MEDICARE A ETNA MEDICARE PPO [id number] 2021-Present [phone] [address] [place] [address] PPO [id number] 2021 Medicare (Managed Care) [employer] [place] DICARE [id number] 2021 Private Health Insurance [facility] [id number] 2021 Medicare [employer]ETNA MEDICARE A ETNA MEDICARE PPO [id number] 2021-Present [phone] [address] [place] [address] PPO [id number] Unknown [id number]. 462 Unknown [id number]. 462 Unknown [id number] [id number]. 462 Unknown [id number] [id number]. 462 Unknown [id number] 2.840.1.795836.3.579.2. 462 Unknown [id number] 2.840.1.979544.3.579.2. 462 Unknown [id number] 2.840.1.413997.3.579.2. 462 Unknown [id number] 2.840.1.571509.3.579.2. 462 Unknown [id number] 2.840.1.346978.3.579.2. 462 Unknown [id number] 2.840.1.398423.3.579.2. 462 Unknown [id number] 2.840.1.785538.3.579.2. 462 Unknown [id number] 2.840.1.079449.3.579.2. 462 Unknown [id number] 2.840.1.811088.3.579.2. 462 Unknown [id number] 2.840.1.126260.3.579.2. 462 Unknown [id number] .[id number]. 462 Unknown [id number] 2.840.1.057001.3.579.2. 462 Unknown [id number] 2.840.1.395053.3.579.2. 462 Unknown [id number] .[id number]. 462 Unknown [id number] 2.840.1.774671.3.579.2. 462 Unknown [id number] 2.840.1.833916.3.579.2. 462 Unknown [id number] 2.840.1.634634.3.579.2. 462 Unknown [id number]. 462 Social History Date Type Detail Facility Start: 03-23-2012 End: 05-25-2024 Tobacco smoking status NHIS Ex-smoker [facility] Work Phone: Start: 08-18-1969 End: 08-18-1989 History of tobacco use Current smoker [facility] Work Phone: Start: 08-18-1969 End: 08-18-1989 History of tobacco use Cigarette Smoker [facility] Work Phone: Start: 03-23-2012 End: 02-19-2023 Cigarettes smoked current (pack per day) - Reported 1 [facility] Start: 03-23-2012 End: 05-25-2024 Tobacco use and exposure Former smokeless tobacco user [facility] Work Phone: End: 01-16-2017 History of tobacco use Snuff User [facility] Work Phone: Start: 08-14-2021 End: 04-15-2025 Alcohol intake Current drinker of alcohol (finding) [facility] Start: 12-14-2019 History SDOH Alcohol Frequency 2 [facility] Start: 12-14-2019 History SDOH Alcohol Std Drinks 1 [facility] Start: 03-23-2012 History SDOH Alcohol Comment rare-beer [facility] Start: 12-14-2019 History SDOH Social Connections Phone 5 [facility] Start: 12-14-2019 History SDOH Social Connections Get Together 4 [facility] Start: 12-14-2019 History SDOH Social Connections Cheondoism 3 [facility] Start: 12-14-2019 Education 12 [facility] Start: 1955 Sex Assigned At Male C [facility] Start: 12-14-2019 End: 02-19-2023 Social connection and isolation panel [facility] Do you belong to any clubs or organizations such as sikh groups, unions, fraternal or athletic groups, or school groups? Yes [facility] Are you now , , , , never or living with a partner? [facility] How often to you hav e a drink containing alcohol? Monthly or less [facility] How many standard dr inks containing alcohol do you have on a typical day? 1 or 2 [facility] How often do you hav e 6 or more drinks on 1 occasion? Never [facility] Start: 07-19-2012 How hard is it for y ou to pay for the very basics like food, housing, medical care, and heating Not hard at all [facility] (I/We) worried [place] er (my/our) food would run out before (I/we) got money to buy more. Never true [facility] Start: 02-02-2021 Gender identity Identifies as male gender (finding) [facility] Functional Status Date Assessment Result Facility 02-15-2015 Are you deaf, or do you have serious difficulty hearing No 02/15/2015 4:01 PM Sheryl Taylor RN No [facility] 02-15-2015 Are you blind, or do you have serious difficulty seeing, even when wearing glasses No 02/15/2015 4:01 PM Sheryl Taylor RN No [facility] 02-15-2015 Do you have serious difficulty walking or climbing stairs No 02/15/2015 4:01 PM Sheryl Taylor RN No [facility] 02-15-2015 Do you have difficul ty dressing or bathing No 02/15/2015 4:01 PM Sheryl Taylor RN No [facility] 02-15-2015 Because of a physica l, mental, or emotional condition, do you have difficulty doing errands alone such as visiting a physician's office or shopping No 02/15/2015 4:01 PM Sheryl Taylor RN No [facility] Mental Status Date Assessment Result Facility 02-15-2015 Because of a physica l, mental, or emotional condition, do you have serious difficulty concentrating, remembering, or making decisions No 02/15/2015 4:01 PM Sheryl Taylor RN No [facility] Clinical Notes 09-08-2017 to 04-15-2025 Stephane Nuñez MD - 04/15/2025 8:46 AM Vickie Matta MA - 04/14/2025 10:36 AM Evon Castro, RT(R) - 04/01/2025 8:30 AM Lynn Berry RDMS - 12/07/2024 7:45 AM EDT Note Date & Type Note Facility 04-15-2025 Note HNO ID: [id number] Author: STEPHANE NUÑEZ MD Service: ? Author Type: Physician Type: Progress Notes Filed: 04/15/2025 09:16 Note Text: (Elements copied from my note dated March 23, 2025, have been reviewed and updated where appropriate, and all reflect current assessment and medical decision making from today's encounter, April 15, 2025) HISTORY OF PRESENT ILLNESS: Maci Howard is a 69 year old male referred for evaluation of thrombocytopenia. He feels well, we reviewed his lab work results over time. Discussed possible reasons for thrombocytopenia. Had a liver US to evaluate elevated alk phos, coarse liver noted. Here for follow up, liver MRI negative, pleural effusion noted, he sees pulmonology May 2025. Platelets today 66 CLINICAL IMPRESSION: Thrombocytopenia, progressive,at this point thinking more c/w ITP, rest of cbc normal RECOMMENDATION/PLAN: 1. Will see back 3 weeks or so with cbc, if platelets drop below 50 plan trial steroids. Written and verbal health teaching given to patient, patient verbalizes understanding and agrees with treatment plan. PAST MEDICAL HISTORY Diagnosis Date Anxiety Asthma (HCC) Childhood. 10/2017 bronchoscopy/biopsy with inflammation, eosinophils. CAD (coronary artery disease) s/p SHANIQUA to LAD, seeing Dr. Llanos COPD (chronic obstructive pulmonary disease) ([facility]) Depression Diaphragmatic hernia without mention of obstruction or gangrene Dyslipidemia Dysphagia Dyspnea With wheezing. Spirometry w/o obstruction 02/01 and 06/03. Has seen Dr. Pearl Esophagitis, unspecified Essential hypertension GERD (gastroesophageal reflux disease) History of CVA (cerebrovascular accident) 06/20/2014 mild History of prostate cancer s/p robotic prostatectomy Obesity (BMI 30.0-34.9) LESLY (obstructive sleep apnea) Consistently compliant with CPAP. PFO (patent foramen ovale) (HCC) Prostate cancer (HCC) 2012 s/p prostatectomy, [place] S/P prostatectomy PAST SURGICAL HISTORY Procedure Laterality Date ESOPHAGOGASTRODUODENOSCOPY TRANSORAL DIAGNOSTIC 05/01/2007 EGD ESOPHAGOGASTRODUODENOSCOPY TRANSORAL DIAGNOSTIC 03/21/2013 [facility] EGD PAST SURGICAL HISTORY OF submandibular gland removed PAST SURGICAL HISTORY OF 10/31/14 Robotic Prostatectomy PAST SURGICAL HISTORY OF 04/2017 SHANIQUA to LAD PAST SURGICAL HISTORY OF 06/2017 sinus surgery FAMILY HISTORY Problem Relation Age of Onset Heart Mother CAD. Hypertension Mother Cancer Father Prostate cancer. other (Other) Father Lower lobectomy, not cancerous. No Known Problems Sister No Known Problems Sister No Known Problems Sister No Known Problems Sister Cancer Paternal Grandfather Prostate Cancer. other (Other) Other No allergy, asthma, COPD. Social History Tobacco Use Smoking status: Former Current packs/day: 0.00 Average packs/day: 1 pack/day for 20.0 years (20.0 ttl pk-yrs) Types: Cigarettes Start date: 08/18/1969 Quit date: 08/18/1989 Years since quittin.6 Smokeless tobacco: Former Types: Snuff Quit date: 01/16/2017 Vaping Use Vaping status: Never Used Substance Use Topics Alcohol use: Yes Alcohol/week: 1.0 standard drink of alcohol Types: 1 Cans of Beer (12oz) per week Comment: rare-beer Drug use: No ALLERGIES: ALLERGIES Allergen Reactions Paraf[facility] [* CURRENT OUTPATIENT MEDICATIONS: losartan (COZAAR) 25 mg tablet Take 0.5 tablets by mouth once daily. pantoprazole DR (PROTONIX) 20 mg tablet TAKE 1 TABLET DAILY BEFORE BREAKFAST. TAKE ON AN EMPTYSTOMACH, 1/2 HOUR BEFORE A MEAL. atorvastatin (LIPITOR) 80 mg tablet Take 1 tablet by mouth once daily. clopidogrel (PLAVIX) 75 mg tablet Take 1 tablet by mouth once daily. nitroglycerin sublingual (NITROQUICK) 0.4 mg SL tablet Take 1 tablet by mouth every 5 minutes as needed for chest pain. FOR CHEST PAIN. IF NO PAIN RELIEF, CALL 911 NUCALA 100 mg/mL injection Inject 100 mg subcutaneously every 4 weeks. montelukast (SINGULAIR) 10 mg tablet Take 1 tablet by mouth daily at bedtime. CPAP albuterol HFA (VENTOLIN HFA) 90 mcg/actuation inhaler Inhale 2 Puffs as instructed every 4 hours as needed. albuterol sulfate (PROAIR HFA INHALATION) Inhale as instructed as needed. (Patient not taking: Reported on 03/23/2025) fluticasone (FLONASE) 50 mcg/actuation nasal spray Use 2 Sprays in each nostril once daily. Rinse mouth after use. (Patient not taking: Reported on 03/23/2025) aspirin 81 mg chewable tablet Take 81 mg by mouth once daily. REVIEW OF SYSTEMS: GENERAL: No fever, night sweats, weight loss or malaise. All other reviewed and negative other than HPI. PHYSICAL EXAMINATION: VITAL SIGNS: BP 114/76 Pulse 46 Temp (Src) 96.3 (Temporal) Wt 214 lb (97.1kg) SpO2 96% GENERAL APPEARANCE: Well appearing, in no acute distress, alert and oriented x3, well-hydrated, well nourished. I spent a total of 30 minutes on the date of the service which included p (more content not included)... [facility] 04-15-2025 History of Presen t illness Narrative (Elements copied from my note dated March 23, 2025, have been reviewed and updated where appropriate, and all reflect current assessment and medical decision making from today's encounter, April 15, 2025) HISTORY OF PRESENT ILLNESS: Maci Howard is a 69 year old male referred for evaluation of thrombocytopenia. He feels well, we reviewed his lab work results over time. Discussed possible reasons for thrombocytopenia. Had a liver US to evaluate elevated alk phos, coarse liver noted. Here for follow up, liver MRI negative, pleural effusion noted, he sees pulmonology May 2025. Platelets today 66 CLINICAL IMPRESSION: Thrombocytopenia, progressive,at this point thinking more c/w ITP, rest of cbc normal RECOMMENDATION/PLAN: 1. Will see back 3 weeks or so with cbc, if platelets drop below 50 plan trial steroids. Written and verbal health teaching given to patient, patient verbalizes understanding and agrees with treatment plan. PAST MEDICAL HISTORY Diagnosis Date Anxiety Asthma ([facility]) Childhood. 10/2017 bronchoscopy/biopsy with inflammation, eosinophils. CAD (coronary artery disease) s/p SHANIQUA to LAD, seeing Dr. Llanos COPD (chronic obstructive pulmonary disease) ([facility]) Depression Diaphragmatic hernia without mention of obstruction or gangrene Dyslipidemia Dysphagia Dyspnea With wheezing. Spirometry w/o obstruction 02/01 and 06/03. Has seen Dr. Pearl Esophagitis, unspecified Essential hypertension GERD (gastroesophageal reflux disease) History of CVA (cerebrovascular accident) 06/20/2014 mild History of prostate cancer s/p robotic prostatectomy Obesity (BMI 30.0-34.9) LESLY (obstructive sleep apnea) Consistently compliant with CPAP. PFO (patent foramen ovale) ([facility]) Prostate cancer ([facility]) 2012 s/p prostatectomy, [place] S/P prostatectomy PAST SURGICAL HISTORY Procedure Laterality Date ESOPHAGOGASTRODUODENOSCOPY TRANSORAL DIAGNOSTIC 05/01/2007 EGD ESOPHAGOGASTRODUODENOSCOPY TRANSORAL DIAGNOSTIC 03/21/2013 [facility] EGD PAST SURGICAL HISTORY OF submandibular gland removed PAST SURGICAL HISTORY OF 10/31/14 Robotic Prostatectomy PAST SURGICAL HISTORY OF 04/2017 SHANIQUA to LAD PAST SURGICAL HISTORY OF 06/2017 sinus surgery FAMILY HISTORY Problem Relation Age of Onset Heart Mother CAD. Hypertension Mother Cancer Father Prostate cancer. other (Other) Father Lower lobectomy, not cancerous. No Known Problems Sister No Known Problems Sister No Known Problems Sister No Known Problems Sister Cancer Paternal Grandfather Prostate Cancer. other (Other) Other No allergy, asthma, COPD. Social History Tobacco Use Smoking status: Former Current packs/day: 0.00 Average packs/day: 1 pack/day for 20.0 years (20.0 ttl pk-yrs) Types: Cigarettes Start date: 08/18/1969 Quit date: 08/18/1989 Years since quittin.6 Smokeless tobacco: Former Types: Snuff Quit date: 01/16/2017 Vaping Use Vaping status: Never Used Substance Use Topics Alcohol use: Yes Alcohol/week: 1.0 standard drink of alcohol Types: 1 Cans of Beer (12oz) per week Comment: rare-beer Drug use: No ALLERGIES: ALLERGIES Allergen Reactions [facility] [* CURRENT OUTPATIENT MEDICATIONS: losartan (COZAAR) 25 mg tablet Take 0.5 tablets by mouth once daily. pantoprazole DR (PROTONIX) 20 mg tablet TAKE 1 TABLET DAILY BEFORE BREAKFAST. TAKE ON AN EMPTYSTOMACH, 1/2 HOUR BEFORE A MEAL. atorvastatin (LIPITOR) 80 mg tablet Take 1 tablet by mouth once daily. clopidogrel (PLAVIX) 75 mg tablet Take 1 tablet by mouth once daily. nitroglycerin sublingual (NITROQUICK) 0.4 mg SL tablet Take 1 tablet by mouth every 5 minutes as needed for chest pain. FOR CHEST PAIN. IF NO PAIN RELIEF, CALL 911 NUCALA 100 mg/mL injection Inject 100 mg subcutaneously every 4 weeks. montelukast (SINGULAIR) 10 mg tablet Take 1 tablet by mouth daily at bedtime. CPAP albuterol HFA (VENTOLIN HFA) 90 mcg/actuation inhaler Inhale 2 Puffs as instructed every 4 hours as needed. albuterol sulfate (PROAIR HFA INHALATION) Inhale as instructed as needed. (Patient not taking: Reported on 03/23/2025) fluticasone (FLONASE) 50 mcg/actuation nasal spray Use 2 Sprays in each nostril once daily. Rinse mouth after use. (Patient not taking: Reported on 03/23/2025) aspirin 81 mg chewable tablet Take 81 mg by mouth once daily. REVIEW OF SYSTEMS: GENERAL: No fever, night sweats, weight loss or malaise. All other reviewed and negative other than HPI. PHYSICAL EXAMINATION: VITAL SIGNS: BP 114/76 Pulse 46 Temp (Src) 96.3 (Temporal) Wt 214 lb (97.1kg) SpO2 96% GENERAL APPEARANCE: Well appearing, in no acute distress, alert and oriented x3, well-hydrated, well nourished. I spent a total of 30 minutes on the date of the service which included preparing to see the patient, [id number] patient care, completing clinical documentation, obtaining and/or reviewing separately obtained history, counseling and educating the patient/family/caregiver, ordering medications, tests, or procedures, communicating with other HCPs (not separately reported), independently interpreting results (not separately reported), and communicating results to the patient/family/caregiver. Reviewed with radiology. Electronically Signed: Stephane Nuñez MD April 15, 2025 documented in this encounter [facility] 04-14-2025 Note HNO ID: [id number] Author: VICKIE DUMONT MA Service: ? Author Type: Child Psychiatrist Type: Progress Notes Filed: 04/14/2025 10:38 Note Text: POPULATION HEALTH NAVIGATION OUTREACH Action/FYI Appt already scheduled, updated appt notes to include HCC diagnosis. Reason for Outreach Care Gap/HCC or Scheduling Wellness Visits Care Gaps due: N/A Patient Contacted: Unable or unnecessary to reach patient: Updated appointment notes Chart Review only Navigation Signature: Vickie Dumont MA April 14, 2025 10:36 AM [facility] 04-14-2025 History of Presen t illness Narrative POPULATION HEALTH NAVIGATION OUTREACH Action/FYI Appt already scheduled, updated appt notes to include HCC diagnosis. Reason for Outreach Care Gap/HCC or Scheduling Wellness Visits Care Gaps due: N/A Patient Contacted: Unable or unnecessary to reach patient: Updated appointment notes Chart Review only Navigation Signature: Vickie Dumont MA April 14, 2025 10:36 AM documented in this encounter [facility] 04-14-2025 Note Patient Outreach (NE TNAV) MCAI HOWARD ([id number]) 1955 M Date Time Provider Department 04/14/25 VICKIE DUMONT During your visit today, we recorded the following information about you: Vickie Dumont MA 04/14/2025 10:38 AM Signed POPULATION HEALTH NAVIGATION OUTREACH Action/FYI Appt already scheduled, updated appt notes to include HCC diagnosis. Reason for Outreach Care Gap/HCC or Scheduling Wellness Visits Care Gaps due: N/A Patient Contacted: Unable or unnecessary to reach patient: Updated appointment notes Chart Review only Navigation Signature: Vickie Dumont MA April 14, 2025 10:36 AM Allergies As of Date: 04/14/2025 Noted Allergy Reaction LOURDES NATALIESolomon DSC (CHLORZOXAZONE) 03/11/2006 Date Reviewed: 04/01/2025 Reviewed by: Evon Matta, RT(R) - Fully Assessed Reason for Visit: Population Health Navigation Outreach [3910] Cmt: [facility] SPRINT LIST Prescriptions as of 04/14/2025 - losartan (COZAAR) 25 mg tablet Take 0.5 tablets by mouth once daily. - pantoprazole DR (PROTONIX) 20 mg tablet TAKE 1 TABLET DAILY BEFORE BREAKFAST. TAKE ON AN EMPTYSTOMACH, 1/2 HOUR BEFORE A MEAL. - atorvastatin (LIPITOR) 80 mg tablet Take 1 tablet by mouth once daily. - clopidogrel (PLAVIX) 75 mg tablet Take 1 tablet by mouth once daily. - nitroglycerin sublingual (NITROQUICK) 0.4 mg SL tablet Take 1 tablet by mouth every 5 minutes as needed for chest pain. FOR CHEST PAIN. IF NO PAIN RELIEF, CALL 911 - albuterol sulfate (PROAIR HFA INHALATION) Inhale as instructed as needed. - NUCALA 100 mg/mL injection Inject 100 mg subcutaneously every 4 weeks. - fluticasone (FLONASE) 50 mcg/actuation nasal spray Use 2 Sprays in each nostril once daily. Rinse mouth after use. - montelukast (SINGULAIR) 10 mg tablet Take 1 tablet by mouth daily at bedtime. - CPAP - albuterol HFA (VENTOLIN HFA) 90 mcg/actuation inhaler Inhale 2 Puffs as instructed every 4 hours as needed. - aspirin 81 mg chewable tablet Take 81 mg by mouth once daily. Problem List As Of Date 04/14/2025 Noted Resolved DYSPHAGIA [787.2] Esophagitis, unspecified [K20.90] [...] [Z85.46] 02/19/2023 Chronic bronchitis (HCC) [J42] 02/19/2023 Obesity, Class I, BMI 30-34.9 [E66.811] 05/25/2024 COPD (chronic obstructive pulmonary disease) (H* Encounter Status:Closed by VICKIE DUMONT on 04/14/25 [facility] 04-01-2025 History of Presen t illness Narrative Radiology Service Progress Note DATE OF SERVICE: April 01, 2025 TIME: 8:25 AM PATIENT IDENTITY VERIFICATION COMPLETED USING TWO (2) STANDARD IDENTIFIERS: Name and Date of confirmed by patient verbally. FALL SCREENING: Has the patient had 2 falls in the last year or 1 fall with injury or currently using an Ambulatory Assistive Device (Walker, Cane, Wheelchair, Crutches, etc.)? No PATIENT GENDER DATA: Assigned male at PATIENT RELEVANT IMPLANT DATA REVIEWED: Yes PATIENT PRESENTS WITH AN IMPLANTABLE OR ATTACHED SEED MILL SUPERINTENDENT: No ALLERGIES: Reviewed and unchanged CONTRAST ALLERGY: NO. EXAM: MRI - CONTRAST TYPE: GROUP II PERIPHERAL IV DATA: Ambulatory: A peripheral IV was started in the Left antecubital site with a Angio cath: 22 gauge. RADIOLOGY DEPARTMENT: MR; Exam(s) Completed: Body: Liver (routine). Aromatherapy Administered: No SIGNATURE: RT Dariela(R) PATIENT NAME: Maci Howard DATE: April 01, 2025 TIME: 8:25 AM documented in this encounter [facility] 04-01-2025 Note HNO ID: [id number] Author: EVON MATTA RT(R) Service: ? Author Type: Technologist Type: Progress Notes Filed: 04/01/2025 08:26 Note Text: Radiology Service Progress Note DATE OF SERVICE: April 01, 2025 TIME: 8:25 AM PATIENT IDENTITY VERIFICATION COMPLETED USING TWO (2) STANDARD IDENTIFIERS: Name and Date of confirmed by patient verbally. FALL SCREENING: Has the patient had 2 falls in the last year or 1 fall with injury or currently using an Ambulatory Assistive Device (Walker, Cane, Wheelchair, Crutches, etc.)? No PATIENT GENDER DATA: Assigned male at PATIENT RELEVANT IMPLANT DATA REVIEWED: Yes PATIENT PRESENTS WITH AN IMPLANTABLE OR ATTACHED SEED MILL SUPERINTENDENT: No ALLERGIES: Reviewed and unchanged CONTRAST ALLERGY: NO. EXAM: MRI - CONTRAST TYPE: GROUP II PERIPHERAL IV DATA: Ambulatory: A peripheral IV was started in the Left antecubital site with a Angio cath: 22 gauge. RADIOLOGY DEPARTMENT: MR; Exam(s) Completed: Body: Liver (routine). Aromatherapy Administered: No SIGNATURE: RT Dariela(R) PATIENT NAME: Maci Howard DATE: April 01, 2025 TIME: 8:25 AM [facility] 03-23-2025 Note HNO ID: [id number] Author: STEPHANE NUÑEZ MD Service: ? Author Type: Physician Type: Progress Notes Filed: 03/23/2025 10:13 Note Text: HISTORY OF PRESENT ILLNESS: Maci Howard is a 69 year old male referred for evaluation of thrombocytopenia. He feels well, we reviewed his lab work results over time. Discussed possible reasons for thrombocytopenia. Had a liver US to evaluate elevated alk phos, coarse liver noted. CLINICAL IMPRESSION: Thrombocytopenia, concern for fatty liver RECOMMENDATION/PLAN: 1. Will obtain liver MRI to better characterize hepatic parenchyma 2. See back after that with cbc Written and verbal health teaching given to patient, patient verbalizes understanding and agrees with treatment plan. PAST MEDICAL HISTORY Diagnosis Date Anxiety Asthma (HCC) Childhood. 10/2017 bronchoscopy/biopsy with inflammation, eosinophils. CAD (coronary artery disease) s/p SHANIQUA to LAD, seeing Dr. Llanos COPD (chronic obstructive pulmonary disease) (HCC) Depression Diaphragmatic hernia without mention of obstruction or gangrene Dyslipidemia Dysphagia Dyspnea With wheezing. Spirometry w/o obstruction 02/01 and 06/03. Has seen Dr. Pearl Esophagitis, unspecified Essential hypertension GERD (gastroesophageal reflux disease) History of CVA (cerebrovascular accident) 06/20/2014 mild History of prostate cancer s/p robotic prostatectomy Obesity (BMI 30.0-34.9) LESLY (obstructive sleep apnea) Consistently compliant with CPAP. PFO (patent foramen ovale) (HCC) Prostate cancer (HCC) 2012 s/p prostatectomy, Pick S/P prostatectomy PAST SURGICAL HISTORY Procedure Laterality Date ESOPHAGOGASTRODUODENOSCOPY TRANSORAL DIAGNOSTIC 05/01/2007 EGD ESOPHAGOGASTRODUODENOSCOPY TRANSORAL DIAGNOSTIC 03/21/2013 [facility] EGD PAST SURGICAL HISTORY OF submandibular gland removed PAST SURGICAL HISTORY OF 10/31/14 Robotic Prostatectomy PAST SURGICAL HISTORY OF 04/2017 SHANIQUA to LAD PAST SURGICAL HISTORY OF 06/2017 sinus surgery FAMILY HISTORY Problem Relation Age of Onset Heart Mother CAD. Hypertension Mother Cancer Father Prostate cancer. other (Other) Father Lower lobectomy, not cancerous. No Known Problems Sister No Known Problems Sister No Known Problems Sister No Known Problems Sister Cancer Paternal Grandfather Prostate Cancer. other (Other) Other No allergy, asthma, COPD. Social History Tobacco Use Smoking status: Former Current packs/day: 0.00 Average packs/day: 1 pack/day for 20.0 years (20.0 ttl pk-yrs) Types: Cigarettes Start date: 08/18/1969 Quit date: 08/18/1989 Years since quittin.6 Smokeless tobacco: Former Types: Snuff Quit date: 01/16/2017 Vaping Use Vaping status: Never Used Substance Use Topics Alcohol use: Yes Alcohol/week: 1.0 standard drink of alcohol Types: 1 Cans of Beer (12oz) per week Comment: rare-beer Drug use: No ALLERGIES: ALLERGIES Allergen Reactions [facility] [* CURRENT OUTPATIENT MEDICATIONS: losartan (COZAAR) 25 mg tablet Take 0.5 tablets by mouth once daily. pantoprazole DR (PROTONIX) 20 mg tablet TAKE 1 TABLET DAILY BEFORE BREAKFAST. TAKE ON AN EMPTYSTOMACH, 1/2 HOUR BEFORE A MEAL. atorvastatin (LIPITOR) 80 mg tablet Take 1 tablet by mouth once daily. clopidogrel (PLAVIX) 75 mg tablet Take 1 tablet by mouth once daily. nitroglycerin sublingual (NITROQUICK) 0.4 mg SL tablet Take 1 tablet by mouth every 5 minutes as needed for chest pain. FOR CHEST PAIN. IF NO PAIN RELIEF, CALL 911 NUCALA 100 mg/mL injection Inject 100 mg subcutaneously every 4 weeks. montelukast (SINGULAIR) 10 mg tablet Take 1 tablet by mouth daily at bedtime. CPAP albuterol HFA (VENTOLIN HFA) 90 mcg/actuation inhaler Inhale 2 Puffs as instructed every 4 hours as needed. albuterol sulfate (PROAIR HFA INHALATION) Inhale as instructed as needed. (Patient not taking: Reported on 03/23/2025) fluticasone (FLONASE) 50 mcg/actuation nasal spray Use 2 Sprays in each nostril once daily. Rinse mouth after use. (Patient not taking: Reported on 03/23/2025) aspirin 81 mg chewable tablet Take 81 mg by mouth once daily. REVIEW OF SYSTEMS: GENERAL: No fever, night sweats, weight loss or malaise. All other reviewed and negative other than HPI. PHYSICAL EXAMINATION: VITAL SIGNS: BP 132/84 Pulse 61 Ht 6' .205 (1.83m) Wt 220 lb (99.8kg) SpO2 99% BMI 29.67 kg/(m2). GENERAL APPEARANCE: Well appearing, in no acute distress, alert and oriented x3, well-hydrated, well nourished. I spent a total of 45 minutes on the date of the service which included preparing to see the patient, [id number] patient care, completing clinical documentation, obtaining and/or reviewing separately obtained history, counseling and educating the patient/family/caregiver, ordering medications, tests, or procedures, communicating with other HCPs (not separately reported), independently interpreting results (not separa (more content not included)... [facility] 03-07-2025 Telephone encounter Note Prescription Refill Information The patient has been identified by name and date of : Yes Caregiver verified no other encounters exist for this prescription request: Yes Caregiver confirmed with patient/requestor that no other refills are due, in the near future, with this provider at this time: Yes The last office visit in the department: 11/23/24 Does the patient have a future office visit with this provider/department: Yes, 05/25/25 Requested Prescriptions Pending Prescriptions Disp Refills atorvastatin (LIPITOR) 80 mg tablet 90 tablet 1 Sig: Take 1 tablet by mouth once daily. Anatoly Lewis LPN March 07, 2025 2:52 PM [facility] 03-07-2025 Miscellaneous Notes Prescription Refill Information The patient has been identified by name and date of : Yes Caregiver verified no other encounters exist for this prescription request: Yes Caregiver confirmed with patient/requestor that no other refills are due, in the near future, with this provider at this time: Yes The last office visit in the department: 11/23/24 Does the patient have a future office visit with this provider/department: Yes, 05/25/25 Requested Prescriptions Pending Prescriptions Disp Refills atorvastatin (LIPITOR) 80 mg tablet 90 tablet 1 Sig: Take 1 tablet by mouth once daily. Anatoly Lewis LPN March 07, 2025 2:52 PM documented in this encounter [facility] 03-04-2025 Telephone encounter Note Thank you. Dr. Nuñez will discuss at [facility] appointment on 03/23/25. Yuridia Novoa RN [facility] Work Phone: 03-04-2025 Miscellaneous Notes [address] you. Dr. Nuñez will discuss at [facility] appointment on 03/23/25. Yuridia Novoa RN Scheduled consult with spouse. Patient scheduled labs thru My Chart and completed on 03/02. 1st attempt. message left for patient to contact office to schedule lab and new patient consult with Dr. Nuñez 2-3 days after labs. Patient currently scheduled his lab thru my chart - Will need rescheduled. lab- CBC/PT/PTT/LDH POL[facility] [place]/THROMBOCYTOPENIA/REF PROV DR SNOW* Dr. Nuñez would like to see him in office. New patient with labs 2-3 days prior. CBC/PT/PTT/LDH. Not urgent, ok for next opening available. Please call patient to schedule. Yuridia Novoa RN documented in this encounter [facility] 03-04-2025 Telephone encounter Note Scheduled consult with spouse. Patient scheduled labs thru My Chart and completed on 03/02. [facility] Work Phone: 03-04-2025 Telephone encounter Note Reviewed TE 02/28 where maintenance scheduler called to make appointment but patient did not call back. Spoke to and gave her number to call so appointment can be made and aware results will be discussed in office with automatic line set up mechanic Sandra Garnica MA [facility] 03-04-2025 Miscellaneous Notes Reviewed TE 02/28 where maintenance scheduler called to make appointment but patient did not call back. Spoke to and gave her number to call so appointment can be made and aware results will be discussed in office with automatic line set up mechanic Sandra Garnica MA documented in this encounter [facility] 03-01-2025 Telephone encounter Note 1st attempt. message left for patient to contact office to schedule lab and new patient consult with Dr. Nuñez 2-3 days after labs. Patient currently scheduled his lab thru my chart - Will need rescheduled. lab- CBC/PT/PTT/LDH POL[place] [place]/THROMBOCYTOPENIA/REF PROV DR SNOW* [facility] 03-01-2025 Telephone encounter Note See MyChart message. Yuridia Novoa RN [facility] Work Phone: 03-01-2025 Miscellaneous Notes See Playtox[employer] message. Yuridia Novoa RN Patient is being referred for thrombocytopenia. Patients platelets are 86. Can someone review and advise? documented in this encounter [facility] 03-01-[address] Nuñez would like to see him in office. New patient with labs 2-3 days prior. CBC/PT/PTT/LDH. Not urgent, ok for next opening available. Please call patient to schedule. Yuridia Novoa RN [facility] 02-28-2025 Telephone encounter Note Patient is being referred for thrombocytopenia. Patients platelets are 86. Can someone review and advise? [facility] 02-24-2025 Telephone encounter Note ----- Message from Vilma Snow MD sent at 02/24/2025 8:22 AM EDT ----- Patient's platelet count continues to drop and is now <100 at 86 without clot detected. Previous HIV and Hep C testing was negative. Recommend referral to hematology for further evaluation. Spontaneous bleeding does not typically occur unless platelets are less than 50. If he has or develops new bleeding or bruising symptoms, would recommend ER evaluation. Please assist with referral to hematology. [facility] 02-24-2025 Miscellaneous Notes ----- Message from Vilma Snow MD sent at 02/24/2025 8:22 AM EDT ----- Patient's platelet count continues to drop and is now <100 at 86 without clot detected. Previous HIV and Hep C testing was negative. Recommend referral to hematology for further evaluation. Spontaneous bleeding does not typically occur unless platelets are less than 50. If he has or develops new bleeding or bruising symptoms, would recommend ER evaluation. Please assist with referral to hematology. documented in this encounter [facility] 12-20-2024 Telephone encounter Note Prescription Refill Information The patient has been identified by name and date of : Yes Caregiver verified no other encounters exist for this prescription request: Yes Caregiver confirmed with patient/requestor that no other refills are due, in the near future, with this provider at this time: No The last office visit in the department: 11/23/24 Does the patient have a future office visit with this provider/department: Yes Requested Prescriptions Pending Prescriptions Disp Refills clopidogrel (PLAVIX) 75 mg tablet 90 tablet 1 Sig: Take 1 tablet by mouth once daily. Jennifer Pena MA December 20, 2024 11:33 AM [facility] 12-20-2024 Miscellaneous Notes Prescription Refill Information The patient has been identified by name and date of : Yes Caregiver verified no other encounters exist for this prescription request: Yes Caregiver confirmed with patient/requestor that no other refills are due, in the near future, with this provider at this time: No The last office visit in the department: 11/23/24 Does the patient have a future office visit with this provider/department: Yes Requested Prescriptions Pending Prescriptions Disp Refills clopidogrel (PLAVIX) 75 mg tablet 90 tablet 1 Sig: Take 1 tablet by mouth once daily. Jennifer Pena MA December 20, 2024 11:33 AM documented in this encounter [facility] 12-07-2024 History of Presen t illness Narrative Radiology Service Progress Note PATIENT NAME: Maci Howard DATE OF SERVICE: December 07, 2024 TIME: 2:55 PM PATIENT IDENTITY VERIFICATION COMPLETED USING TWO (2) IDENTIFIERS: Name and Date of confirmed by patient verbally. FALL SCREENING: Has the patient had 2 falls in the last year or 1 fall with injury or currently using an Ambulatory Assistive Device (Walker, Cane, Wheelchair, Crutches, etc.)? No PATIENT GENDER DATA: Assigned male at PATIENT RELEVANT IMPLANT DATA REVIEWED: Not Applicable PATIENT PRESENTS WITH AN IMPLANTABLE OR ATTACHED SEED MILL SUPERINTENDENT: No RADIOLOGY DEPARTMENT: Ultrasound PERIPHERAL IV DATA: Not applicable SIGNED BY: Lynn Hou RDMS T December 07, 2024 2:55 PM documented in this encounter [facility] 12-07-2024 Note HNO ID: [id number] Author: LYNN HOU RDMS Service: ? Author Type: Greenskeeper Supervisor Type: Progress Notes Filed: 12/07/2024 14:55 Note Text: Radiology Service Progress Note PATIENT NAME: Maci Howard DATE OF SERVICE: December 07, 2024 TIME: 2:55 PM PATIENT IDENTITY VERIFICATION COMPLETED USING TWO (2) IDENTIFIERS: Name and Date of confirmed by patient verbally. FALL SCREENING: Has the patient had 2 falls in the last year or 1 fall with injury or currently using an Ambulatory Assistive Device (Walker, Cane, Wheelchair, Crutches, etc.)? No PATIENT GENDER DATA: Assigned male at PATIENT RELEVANT IMPLANT DATA REVIEWED: Not Applicable PATIENT PRESENTS WITH AN IMPLANTABLE OR ATTACHED SEED MILL SUPERINTENDENT: No RADIOLOGY DEPARTMENT: Ultrasound PERIPHERAL IV DATA: Not applicable SIGNED BY: Lynn Hou RDMS RVVitaly December 07, 2024 2:55 PM [facility] 11-24-2024 Telephone encounter Note Phoned patient and reviewed results and recommendations with him. Patient voiced understanding and directed to scheduling desk. Clara Rivera LPN [facility] 11-24-2024 Miscellaneous Notes Phoned patient and reviewed results and recommendations with him. Patient voiced understanding and directed to scheduling desk. Clara Rivera LPN ----- Message from Vilma Snow MD sent at 11/24/2024 8:04 AM EDT ----- Normal labs aside from borderline high alk phos and low platelets. With alk phos still borderline high and previous liver fraction high, will check liver US. Platelet counts still above 100. Not at risk for spontaneous bleeding until <50. Previous workup negative. Will recheck in 3 months. Call with new bleeding or bruising symptoms. documented in this encounter [facility] 11-24-2024 Telephone encounter Note ----- Message from Vilma Snow MD sent at 11/24/2024 8:04 AM EDT ----- Normal labs aside from borderline high alk phos and low platelets. With alk phos still borderline high and previous liver fraction high, will check liver US. Platelet counts still above 100. Not at risk for spontaneous bleeding until <50. Previous workup negative. Will recheck in 3 months. Call with new bleeding or bruising symptoms. [facility] 11-23-2024 Note HNO ID: [id number] Author: VILMA SNOW MD Service: ? Author Type: Physician Type: Progress Notes Filed: 11/24/2024 07:17 Note Text: Chief Complaint Patient presents with: Follow Up: 6 month routine HPI Maci Howard is a 69 year old male who presents here today for Above Complaints. Patient has been in good health without recent hospitalizations, ER visits, or falls. No concerns today. CAD s/p SHANIQUA to LAD: managed by [facility] cardiology with last OV 06/2024. 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 Opted to work on weight loss and recommended f/u in 6 months. Complaint with current regimen. No weight change on our scale. HELTON has not changed at all. Denies chest pain, palpitations, LE edema. Not sure when his next f/u is with their office. Asthma/COPD managed by [facility] pulmonology with last OV in October. No changes to regimen. Denies cough/wheezing or worsening SOB. Complaint with regimen. LESLY: compliant with CPAP on a nightly basis. Denies snoring, daytime somnolence or apnea. GERD controlled with protonix. Denies anxiety/depression symptoms without rx or counseling. Past medical history, appointments, medications, allergies reviewed. [...] (HCC) 2013 s/p prostatectomy, [place] S/P prostatectomy Previous Surgical History PAST SURGICAL HISTORY Procedure Laterality Date ESOPHAGOGASTRODUODENOSCOPY TRANSORAL DIAGNOSTIC 05/01/2007 EGD ESOPHAGOGASTRODUODENOSCOPY TRANSORAL DIAGNOSTIC 03/21/2013 [facility] EGD PAST SURGICAL HISTORY OF submandibular [...] asthma, COPD. Patient Allergies ALLERGIES Allergen Reactions Parafon Forte Dsc [* Current Medications Current Outpatient Medications on File Prior to Visit Medication Sig pantoprazole DR (PROTONIX) 20 mg tablet TAKE 1 TABLET DAILY BEFORE BREAKFAST. TAKE ON AN EMPTYSTOMACH, 1/2 HOUR BEFORE A MEAL. losartan (COZAAR) 25 mg tablet Take 0.5 tablets by mouth once daily. atorvastatin (LIPITOR) 80 mg tablet Take 1 [...] date: 08/18/1969 Quit date: 08/18/1989 Years since quittin.2 Smokeless [...] diarrhea SKIN: Negative for lesions, rash, and itchin (more content not included)... [facility] 11-23-2024 History of Presen t illness Narrative Chief Complaint Patient presents with: Follow Up: 6 month routine HPI Maci Howard is a 69 year old male who presents here today for Above Complaints. Patient has been in good health without recent hospitalizations, ER visits, or falls. No concerns today. CAD s/p SHANIQUA to LAD: managed by [facility] cardiology with last OV 06/2024. 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 Opted to work on weight loss and recommended f/u in 6 months. Complaint with current regimen. No weight change on our scale. HELTON has not changed at all. Denies chest pain, palpitations, LE edema. Not sure when his next f/u is with their office. Asthma/COPD managed by [facility] pulmonology with last OV in October. No changes to regimen. Denies cough/wheezing or worsening SOB. Complaint with regimen. LESLY: compliant with CPAP on a nightly basis. Denies snoring, daytime somnolence or apnea. GERD controlled with protonix. Denies anxiety/depression symptoms without rx or counseling. Past medical history, appointments, medications, allergies reviewed. [...] ovale) Prostate cancer (HCC) 2013 s/p prostatectomy, [place] S/P prostatectomy Previous Surgical History PAST SURGICAL HISTORY Procedure Laterality Date ESOPHAGOGASTRODUODENOSCOPY TRANSORAL DIAGNOSTIC 05/01/2007 EGD ESOPHAGOGASTRODUODENOSCOPY TRANSORAL DIAGNOSTIC 03/21/2013 [facility] EGD PAST SURGICAL HISTORY OF submandibular [...] asthma, COPD. Patient Allergies ALLERGIES Allergen Reactions Parafon Forte Dsc [* Current Medications Current Outpatient Medications on File Prior to Visit Medication Sig pantoprazole DR (PROTONIX) 20 mg tablet TAKE 1 TABLET DAILY BEFORE BREAKFAST. TAKE ON AN EMPTYSTOMACH, 1/2 HOUR BEFORE A MEAL. losartan (COZAAR) 25 mg tablet Take 0.5 tablets by mouth once daily. atorvastatin (LIPITOR) 80 mg tablet Take 1 [...] date: 08/18/1969 Quit date: 08/18/1989 Years since quittin.2 Smokeless [...] for lesions, rash, and itching EXAM: BP 124/76 Pulse (!) 57 Resp 18 Wt 103.1 kg (227 lb 3.2 oz) SpO2 98% BMI (P) 29.98 kg/m General Appearance: Well appearing, alert, in no acute distress, well-hydrated, well nourished.. Skin: Skin color, texture, turgor normal, no suspicious rashes or lesions. Lungs: Lungs clear to auscultation. No wheezing, rhonchi, rales.. Heart: RRR without murmur, gallop, or rubs. No ectopy. Abdomen: Normal abdominal exam, Abdomen soft, non-tender. Bowel sounds normal. No masses, organomegaly. Extremities: No deformities, edema, skin discoloration, clubbing or cyanosis. Good capillary refill. . Health Maintenance List Depression Screening Never done Anxiety Screening Never done BP Controlled (<130/80) Never done Shingrix Vaccine(1 of 2) Never done RSV Vaccine(1 - Risk 60-74 years 1-dose series) Never done Advance Directive Discussion Never done Covid-19 Vaccine() due on 11/23/2024 LDL Cholesterol due on 11/18/2024 Colorectal Cancer Screening due on 11/20/2024 Annual PCP Team Chronic Disease Visit due on 05/25/2025 Diabetes Screening due on 05/24/2027 DTaP,Tdap,Td Vaccine(4 - Td or Tdap) due on 12/11/2027 Lipid Screening due on 11/18/2028 Spirometry Completed Abdominal Aortic Aneurysm Screening Completed Influenza Vaccine Completed Hepatitis C Screening Completed Pneumococcal Vaccine: 50+ Completed Data reviewed Latest Ref Rng 12/20/2023 01/26/2024 05/24/2024 WBC 3.70 - 11.00 k/uL 5.29 4.37 5.77 RBC 4.20 - 6.00 m/uL 4.96 4.86 4.91 Hemoglobin 13.0 - 17.0 g/dL 16.1 15.6 15.9 Hematocrit 39.0 - 51.0 % 47.2 45.4 45.9 MCV 80.0 - 100.0 fL 95.2 93.4 93.5 MCH 26.0 - 34.0 pg 32.5 32.1 32.4 MCHC 30.5 - 36.0 g/dL 34.1 34.4 34.6 RDW-CV 11.5 - 15.0 % 13.2 13.1 13.2 Platelet Count 150 - 400 k/uL 133 (L) 131 (L) 131 (L) MPV 9.0 - 12.7 fL 9.6 8.9 (L) 8.5 (L) Neut% % 50.7 52.8 51.6 Abs Neut (ANC) 1.45 - 7.50 k/uL 2.69 2.31 2.98 Lymph% % 35.2 33.0 34.5 Abs Lymph 1.00 - 4.00 k/uL 1.86 1.44 1.99 Isabela% % 11.9 11.9 11.3 Abs Isabela <0.87 k/uL 0.63 0.52 0.65 Eosin% % 0.8 0.7 0.9 Abs Eosin <0.46 k/uL 0.04 0.03 0.05 Baso% % 0.8 0.7 0.7 Abs Baso <0.11 k/uL 0.04 0.03 0.04 Immature Gran % % 0.6 0.9 1.0 IMMATURE GRANS (ABS) <0.10 k/uL 0.03 0.04 0.06 NRBC /100 WBC 0.0 0.0 0.0 Absolute nRBC <0.01 k/uL <0.01 <0.01 <0.01 DTYPE Auto Auto Auto Protein, Total 6.3 - 8.0 g/dL 6.6 6.8 Albumin 3.9 - 4.9 g/dL 3.9 4.0 Calcium 8.5 - 10.2 mg/dL 9.0 9.1 Bilirubin, Total 0.2 - 1.3 mg/dL 0.7 0.8 Alkaline Phosphatase 38 - 113 U/L 130 (H) 145 (H) Alkaline Phosphatase 130 (H) AST 14 - 40 U/L 20 20 ALT 10 - 54 U/L 21 21 Glucose 74 - 99 mg/dL 87 108 (H) BUN 9 - 24 mg/dL 24 23 Creatinine 0.73 - 1.22 mg/dL 0.96 0.88 Sodium 136 - 144 mmol/L 139 138 Potassium 3.7 - 5.1 mmol/L 4.1 3.9 Chloride 98 - 107 mmol/L 106 (H) 106 CO2 22 - 30 mmol/L 21 (L) 22 Anion Gap 8 - 15 mmol/L 12 10 eGFR >=60 mL/min/1.73m 86 93 Alk Phos Bone % 10.7 - 68.3 % 28.9 Bone Fraction 12.9 - 52.6 U/L 37.6 Alk Phos Liver % 26.0 - 86.2 % 71.1 Liver Fraction 16.0 - 69.3 U/L 92.4 (H) Alk Phos Intestine % 0.0 - 24.2 % 0.0 Intestine Fraction 0.0 - 16.3 U/L 0.0 HIV 12 Combo (Ag/Ab) Nonreactive Nonreactive HIV 1/2 Ab -- HIV Interpretation -- Platelet Estimate Decreased Red Cell Morph Reviewed: see results of individual morphologies Ovalocytes Few Pathologist Interpretation, CBCDIF Thrombocytopenia Pathologist (STFREV) Reviewed by Yelitza Castro MD GGT 10 - 70 U/L 29 Hep C Antibody IA Negative Negative Legend: (L) Low (H) High ASSESSMENT/PLAN: 1. 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 F/u with cardiology as scheduled. No changes to regimen. - COMPLETE BLOOD COUNT AND DIFFERENTIAL - COMPREHENSIVE METABOLIC PANEL - LIPID PANEL, NONFASTING 2. Severe persistent asthma, uncomplicated (HCC) - ICD9: 493.90, ICD10: J45.50 - Severe persistent asthma stable - Continue current medications - Avoidance of triggers recommended 3. Chronic obstructive pulmonary disease, unspecified COPD type (HCC) - ICD9: 496, ICD10: J44.9 Stable on current regimen. Managed by pulmonology, will f/u their recommendations. 4. Essential hypertension - ICD9: 401.9, ICD10: [...] CPAP - ICD9: 327.23, ICD10: G47.33 Controlled on nighty CPAP. 7. History of prostate cancer - ICD9: V10.46, ICD10: Z85.46 S/p prostatectomy. Has not seen urology since 2021. Last PSA stable. Recheck at next OV. No urinary concerns today. 8. Gastroesophageal reflux disease, unspecified whether esophagitis present - ICD9: 530.81, ICD10: K21.9 - Continue treatment with Protonix QD 9. S/P prostatectomy - ICD9: V45.89, ICD10: Z90.79 See above 10. Screening for colon cancer - ICD9: V76.51, ICD10: Z12.11 - IMMUNOCHEMICAL FECAL OCCULT BLOOD TEST 11. Encounter for immunization - ICD9: V03.89, ICD10: Z23 - PFIZER-BIONTECH COVID-19 VACCINE AGE 12+ YR (COMIRNATY) Vilma Snow MD documented in this encounter [facility] 09-13-2024 Telephone encounter Note Prescription Refill Information The patient has been identified by name and date of : Yes Caregiver verified no other encounters exist for this prescription request: Yes Caregiver confirmed with patient/requestor that no other refills are due, in the near future, with this provider at this time: Yes The last office visit in the department: 05/2024 Does the patient have a future office visit with this provider/department: Yes 11/2024 Requested Prescriptions Pending Prescriptions Disp Refills pantoprazole DR (PROTONIX) 20 mg tablet 90 tablet 1 Sig: TAKE 1 TABLET DAILY BEFORE BREAKFAST. TAKE ON AN EMPTYSTOMACH, 1/2 HOUR BEFORE A MEAL. Julia Saeed MA September 13, 2024 10:41 AM [facility] 09-13-2024 Miscellaneous Notes Prescription Refill Information The patient has been identified by name and date of : Yes Caregiver verified no other encounters exist for this prescription request: Yes Caregiver confirmed with patient/requestor that no other refills are due, in the near future, with this provider at this time: Yes The last office visit in the department: 05/2024 Does the patient have a future office visit with this provider/department: Yes 11/2024 Requested Prescriptions Pending Prescriptions Disp Refills pantoprazole DR (PROTONIX) 20 mg tablet 90 tablet 1 Sig: TAKE 1 TABLET DAILY BEFORE BREAKFAST. TAKE ON AN EMPTYSTOMACH, 1/2 HOUR BEFORE A MEAL. Julia Saeed MA September 13, 2024 10:41 AM documented in this encounter [facility] 09-01-2024 Telephone encounter Note Prescription Refill Information The patient has been identified by name and date of : Yes Caregiver verified no other encounters exist for this prescription request: Yes Caregiver confirmed with patient/requestor that no other refills are due, in the near future, with this provider at this time: Yes The last office visit in the department: 05/25/24 Does the patient have a future office visit with this provider/department: Yes, 11/23/24 Requested Prescriptions Pending Prescriptions Disp Refills losartan (COZAAR) 25 mg tablet 45 tablet 1 Sig: Take 0.5 tablets by mouth once daily. atorvastatin (LIPITOR) 80 mg tablet 90 tablet 1 Sig: Take 1 tablet by mouth once daily. Anatoly Lewis LPN September 01, 2024 2:49 PM [facility] 09-01-2024 Miscellaneous Notes Prescription Refill Information The patient has been identified by name and date of : Yes Caregiver verified no other encounters exist for this prescription request: Yes Caregiver confirmed with patient/requestor that no other refills are due, in the near future, with this provider at this time: Yes The last office visit in the department: 05/25/24 Does the patient have a future office visit with this provider/department: Yes, 11/23/24 Requested Prescriptions Pending Prescriptions Disp Refills losartan (COZAAR) 25 mg tablet 45 tablet 1 Sig: Take 0.5 tablets by mouth once daily. atorvastatin (LIPITOR) 80 mg tablet 90 tablet 1 Sig: Take 1 tablet by mouth once daily. Anatoly Lewis LPN September 01, 2024 2:49 PM documented in this encounter [facility] 06-28-2024 Telephone encounter Note Prescription Refill Information The patient has been identified by name and date of : Yes Caregiver verified no other encounters exist for this prescription request: Yes Caregiver confirmed with patient/requestor that no other refills are due, in the near future, with this provider at this time: Yes The last office visit in the department: 05/25/24 Does the patient have a future office visit with this provider/department: Yes 11/23/24 Requested Prescriptions Pending Prescriptions Disp Refills clopidogrel (PLAVIX) 75 mg tablet 90 tablet 1 Sig: Take 1 tablet by mouth once daily. Deb Unger LPN June 28, 2024 3:09 PM [facility] 06-28-2024 Miscellaneous Notes Prescription Refill Information The patient has been identified by name and date of : Yes Caregiver verified no other encounters exist for this prescription request: Yes Caregiver confirmed with patient/requestor that no other refills are due, in the near future, with this provider at this time: Yes The last office visit in the department: 05/25/24 Does the patient have a future office visit with this provider/department: Yes 11/23/24 Requested Prescriptions Pending Prescriptions Disp Refills clopidogrel (PLAVIX) 75 mg tablet 90 tablet 1 Sig: Take 1 tablet by mouth once daily. Deb Unger LPN June 28, 2024 3:09 PM documented in this encounter [facility] 05-25-2024 Note HNO ID: [id number] Author: OLIVA WONG APRN.HOME VISITOR Service: ? Author Type: Nurse Practitioner Type: [...] CAD s/p SHANIQUA to LAD: followed with [facility], cardiology on 04/13/2024. No medication changes made at that time. ECHO completed and EF: 55%. Per patient wore a heart monitor and he is skipping some beats. Will be having repeat heart monitor over night again. Reports he will be doing this next week Dyspnea/LESLY: following with [facility] pulmnology with last visit on 2024. [...] Neut (ANC) 1.45 (more content not included)... [facility] 05-25-2024 History of Presen t illness Narrative [...] CAD s/p SHANIQUA to LAD: followed with [facility], cardiology on 04/13/2024. No medication changes made at that time. ECHO completed and EF: 55%. Per patient wore a heart monitor and he is skipping some beats. Will be having repeat heart monitor over night again. Reports he will be doing this next week Dyspnea/LESLY: following with [facility] pulmnology with last visit on 2024. [...] Abs Lymph 1.00 - 4.00 k/uL 1.99 Isabela% % 11.3 Abs Isabela <0.87 k/uL 0.65 Eosin% % 0.9 Abs [...] mL/min/1.73m 93 PSA <2.60 ng/mL Latest Ref Rn 07/02/2023 Total Cholesterol, Nonfasting <200 mg/dL 150 [...] YR, HIGH DOSE, TRIVALENT (FLUZONE HIGH-DOSE) - [employer] COVID-19 VACCINE AGE 12+ YR (COMIRNATY) 3. [...] as recommended 8. Coronary artery disease involving chicken ranch heart [...] follow-up with pulmonology as recommended Oliva Wong APRN.CNP Prescription instructions reviewed with patient as applicable. [...] 4 - Moderate documented in this encounter [facility] 03-02-2024 Telephone encounter Note Prescription Refill [...] Cruz LPN March 02, 2024 10:35 AM [facility] 03-02-2024 Miscellaneous Notes Prescription Refill Information [...] 2024 10:35 AM documented in this encounter [facility] 01-28-2024 Telephone encounter Note TC to patient who verbalized understanding of providers message below with no questions at this time. JAYANT Sow [facility] 01-28-2024 Miscellaneous Notes TC to patient [...] or bruising symptoms. documented in this encounter [facility] 01-28-2024 Telephone encounter Note ----- Message from Vilma Snow MD sent at 01/28/2024 1:56 PM EDT ----- Platelet count remains low in the 130's. HIV and hepatitis C testing is negative. At this time, I would recommend continued monitoring and if dropping less than 100, would consider referral to hematology. Recheck at OV in May. Call with new bleeding or bruising symptoms. [facility] 12-24-2023 Telephone encounter Note Patient returned call and went over results, notes from Dr nSow with understanding. Aware lab orders in computer. [facility] 12-24-2023 Miscellaneous Notes Patient returned call and went over results, notes from Dr Snow with understanding. Aware lab orders in computer. LM for patient to contact office. Pauly Flores MA Repeat alk phos is back [...] further workup needed. documented in this encounter [facility] 12-24-2023 Telephone encounter Note LM for patient to contact office. Pauly Flores MA [facility] 12-24-2023 Telephone encounter Note Repeat alk [...] stable or normal, no further workup needed. [facility] 11-20-2023 Miscellaneous Notes Phoned patient and reviewed results and recommendations with him. Patient voiced understanding. Normal labs aside from slightly high alk phos with normal LFTs and slightly low platelet count. Recommend rechecking in 1 month to monitor. documented in this encounter [facility] 11-19-2023 Miscellaneous Notes PSA changed from screening to diagnostic with client services. Pt aware that we will call with results. Pauly Flores MA Pt in office for PCP visit today and asking about getting back in with Inderjit for PSA. Pt asking this MA to send message. Per CAROLANN 08/16/22, PSA in 2 months to check doubling time, if 0.4 or higher will recommend a MRI and Bone Scan. Pt had repeat PSA 10/14/22 and was 0.22. Would like to have again and to see if appointment needed. Please review and advise. Pauly Flores MA documented in this encounter [facility] 11-19-2023 History of Presen t illness [...] CAD s/p SHANIQUA to LAD: managed by [facility] Cardiology. No changes to regimen at [...] DIAGNOSTIC 05/01/2007 EGD ESOPHAGOGASTRODUODENOSCOPY TRANSORAL DIAGNOSTIC 03/21/2013 [facility] EGD PAST SURGICAL HISTORY OF submandibular [...] asthma, COPD. Patient Allergies ALLERGIES Allergen Reactions [facility]on [facility] [* Current Medications Current Outpatient Medications [...] PANEL BASIC 4. Coronary artery disease involving chicken ranch heart [...] Vilma Snow MD documented in this encounter [facility] 11-18-2023 Miscellaneous Notes Patient has been [...] Randa Uribe LPN. documented in this encounter [facility] 07-03-2023 Miscellaneous Notes Rx sent. Phoned [...] at next OV. documented in this encounter [facility] 06-26-2023 Miscellaneous Notes Last office visit: 02/19/23 F/u scheduled: 08/22/23 Jnenifer Pena Ma documented in this encounter [facility] 02-20-2023 Miscellaneous Notes Patient notified. Verbalized [...] will send rx. Please fax labs to esthetician's office. documented in this encounter [facility] 02-19-2023 History of Presen t illness Narrative Chief Complaint Patient presents with: Follow Up HPI Maci Howard is a 67 year old male who presents here today for Above Complaints. CAD s/p SHANIQUA to LAD: managed by [facility] Cardiology. No changes to regimen at [...] stroke prevention. Would like ears checked today. [place] full yesterday and treated with debrox drops. [...] DIAGNOSTIC 05/01/2007 EGD ESOPHAGOGASTRODUODENOSCOPY TRANSORAL DIAGNOSTIC 03/21/2013 [facility] EGD PAST SURGICAL HISTORY OF submandibular [...] (P) 16 Ht (P) 185.4 cm (6' 1) Wt (P) 107 kg (236 lb) SpO2 [...] Abs Lymph 1.00 - 4.00 k/uL 1.73 Isabela% % 9.8 Abs Isabela <0.87 k/uL 0.65 Eosin% % 0.9 Abs [...] - Avoidance of triggers recommended - notify specialist wound care of worsening symptoms. 2. SOB (shortness of [...] Vilma Snow MD documented in this encounter [facility] 12-16-2022 Miscellaneous Notes Patient has been [...] Pauly Flores MA documented in this encounter [facility] 08-22-2022 History of Presen t illness [...] to 0.21 in the last 6 months. Inderjit Peraza has ordered repeat PSA for 10/15 [...] ovale) Prostate cancer (HCC) 2012 s/p prostatectomy, [place] Previous Surgical History PAST SURGICAL HISTORY Procedure Laterality Date ESOPHAGOGASTRODUODENOSCOPY TRANSORAL DIAGNOSTIC 05/01/2007 EGD ESOPHAGOGASTRODUODENOSCOPY TRANSORAL DIAGNOSTIC 03/21/2013 [facility] EGD PAST SURGICAL HISTORY OF submandibular [...] ICD9: 414.01, ICD10: I25.10 S/p SHANIQUA. On terminal block assembler DAPT. Asymptomatic on medical management. No change [...] Vilma Snow MD documented in this encounter [facility] 08-21-2022 Miscellaneous Notes Patient has been [...] Genny Lawson LPN documented in this encounter [facility] 08-16-2022 Instructions Inderjit Peraza PA-C - 08/16/2022 8:37 AM EST > PSA in 2 months to check doubling time, if 0.4 or higher will recommend a MRI and Bone Scan documented in this encounter [facility] 08-16-2022 History of Presen t illness Narrative Images from the original note were not included. [facility] ESTABLISHED PATIENT CLINIC NOTE [...] Prostate cancer (HCC) 2012 s/p prostatectomy, Sue PAST SURGICAL HISTORY: PAST SURGICAL HISTORY Procedure Laterality Date ESOPHAGOGASTRODUODENOSCOPY TRANSORAL DIAGNOSTIC 05/01/2007 EGD ESOPHAGOGASTRODUODENOSCOPY TRANSORAL DIAGNOSTIC 03/21/2013 [facility] EGD PAST SURGICAL HISTORY OF submandibular [...] resp. rate 20, height 185.4 cm (6' 1), weight 106.1 kg (234 lb), SpO2 97 [...] and MRI NM Bone Scan as well Inderjit Peraza, SHIV, [place], JL Verified name and date of . CC [...] tolerated the procedure well. Plan: Appointment with Inderjit. documented in this encounter [facility] 12-25-2021 Miscellaneous Notes Patient has been [...] Randa Uribe LPN documented in this encounter [facility] 11-13-2021 Miscellaneous Notes CAROLANN 08/09/21 NOV [...] Take 0.5 tablets by mouth once daily. AKRY: No ATORVASTATIN 20 MG TABLET 90 tablet 1 Sig: Take 1 tablet by mouth once daily. KARY: No RX INSTRUCTIONS: Patient aware RX escripted to mail away pharmacy. No need to notify patient. Shellie Bah documented in this encounter [facility] 09-08-2017 History of Past i llness [...] of this encounter (statuses as of 11/14/2021) [facility] History of Past illness Narrative* Problem [...] of this encounter (statuses as of 12/25/2021) [facility] of Past illness Narrative* Problem [...] of this encounter (statuses as of 08/21/2022) [facility] of Past illness Narrative* Problem [...] of this encounter (statuses as of 08/23/2022) [facility] of [facility] illness Narrative* Problem [...] of this encounter (statuses as of 09/03/2022) [facility] of [facility] Narrative* Problem [...] of this encounter (statuses as of 12/16/2022) [facility] Narrative* Problem [...] of this encounter (statuses as of 02/19/2023) [facility] Narrative* Problem [...] of this encounter (statuses as of 02/20/2023) [facility] Narrative* Problem [...] of this encounter (statuses as of 06/27/2023) [facility] Narrative* Problem [...] of this encounter (statuses as of 11/18/2023) [facility] Narrative* Problem [...] of this encounter (statuses as of 11/18/2023) [facility] Narrative* Problem [...] of this encounter (statuses as of 11/19/2023) [facility] Narrative* Problem [...] of this encounter (statuses as of 11/20/2023) [facility] Narrative* Problem [...] of this encounter (statuses as of 11/21/2023) [facility] of [facility] illness Narrative* Problem [...] of this encounter (statuses as of 12/03/2023) [facility] Personal history of prostate cancer- Primary Personal history of malignant neoplasm of prostate [facility] Diagnosis Essential hypertension- Primary Unspecified essential [...] Anxiety with depression [facility] Severe persistent asthma, uncomplicated- [...] bronchitis type (HCC) [facility] Diagnosis Hyperlipidemia, unspecified hyperlipidemia type- Primary [facility] Diagnosis Diarrhea, unspecified type- Primary Essential hypertension Unspecified essential hypertension Hyperlipidemia, unspecified hyperlipidemia type Coronary artery disease involving chicken ranch heart [...] neoplasm of prostate [facility] Elevated alkaline phosphatase level- Primary Other nonspecific abnormal serum enzyme levels Thrombocytopenia (HCC) Thrombocytopenia, unspecified [facility] Thrombocytopenia (HCC)- Primary Thrombocytopenia, unspecified [facility] Diagnosis Esophagitis, unspecified- Primary HYPERLIPIDEMIA [...] neoplasm of prostate Coronary artery disease involving chicken ranch heart without angina pectoris, unspecified vessel or lesion type History of CVA (cerebrovascular accident) Transient ischemic attack (TIA), and cerebral infarction without residual deficits LESLY on CPAP Obstructive sleep apnea (adult) (pediatric) SOB (shortness of breath) Shortness of breath [facility] Diagnosis Esophagitis, unspecified- Primary HYPERLIPIDEMIA NEC/NOS Other and unspecified hyperlipidemia Prostate cancer (HCC) Malignant neoplasm of prostate Coronary artery disease involving chicken ranch heart without angina pectoris, unspecified vessel or lesion type- Primary Severe persistent asthma, uncomplicated (HCC) Unspecified asthma Chronic obstructive pulmonary disease, unspecified COPD type (HCC) Essential hypertension Unspecified essential hypertension Hyperlipidemia, unspecified hyperlipidemia type LESLY on CPAP Obstructive sleep apnea (adult) (pediatric) History of prostate cancer Personal history of malignant neoplasm of prostate Gastroesophageal reflux disease, unspecified whether esophagitis present S/P prostatectomy Other postprocedural status Screening for colon cancer Special screening for malignant neoplasms, colon Encounter for immunization Need for other specified prophylactic vaccination against single bacterial disease [facility] Diagnosis Esophagitis, unspecified- Primary HYPERLIPIDEMIA NEC/NOS Other and unspecified hyperlipidemia Prostate cancer (HCC) Malignant neoplasm of prostate Elevated alkaline phosphatase level- Primary Other nonspecific abnormal serum enzyme levels Thrombocytopenia Thrombocytopenia, unspecified [facility] Diagnosis Esophagitis, unspecified- Primary HYPERLIPIDEMIA NEC/NOS Other and unspecified hyperlipidemia Prostate cancer (HCC) Malignant neoplasm of prostate Elevated alkaline phosphatase level Other nonspecific abnormal serum enzyme levels [facility] Diagnosis Esophagitis, unspecified- Primary HYPERLIPIDEMIA NEC/NOS Other and unspecified hyperlipidemia Prostate cancer (HCC) Malignant neoplasm of prostate Thrombocytopenia- Primary Thrombocytopenia, unspecified [facility] Diagnosis Esophagitis, unspecified- Primary HYPERLIPIDEMIA NEC/NOS Other and unspecified hyperlipidemia Prostate cancer (HCC) Malignant neoplasm of prostate Thrombocytopenia- Primary Thrombocytopenia, unspecified [facility] Diagnosis Esophagitis, unspecified- Primary HYPERLIPIDEMIA NEC/NOS Other and unspecified hyperlipidemia Prostate cancer (HCC) Malignant neoplasm of prostate Fatty (change of) liver, not elsewhere classified [facility] Diagnosis Esophagitis, unspecified- Primary HYPERLIPIDEMIA NEC/NOS Other and unspecified hyperlipidemia Prostate cancer (HCC) Malignant neoplasm of prostate Thrombocytopenia- Primary Thrombocytopenia, unspecified [facility] MRI/CT (Routine) - Closed Specialty Diagnoses / Procedures Referred By Contac t Referred To Contact [facility] Diagnoses Fatty (change of) liver, not elsewhere classified Procedures MRI LIVER WO/W IVCON MRI ABDOMEN W/O & W/CONTRAST MATERIAL Stephane Nuñez MD [address] [place] [address] Phone: tel: [place] [id number] Referral ID Status Reason Start Date Expiration Date V isits Requested Visits Authorized [id number] Closed Auto-Generate d Referral 03/23/2025 04/22/2026 1 1 [facility] Summary Purpose Family History No Family History Records FoundNo Family History Records FoundNo Family History Records Found Advance Directives No Advanced Directives Records FoundDocuments on File Type Date Recorded 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 DATE CREATED AUTHOR AUTHOR'S ORGANIZ ATION 04/16/2025 [facility] DATE CREATED AUTHOR AUTHOR'S ORGANIZ ATION 04/16/2025 [facility] Source Comments (unrecognize d section and content) In the event this informatio n is protected by the Federal Confidentiality of Alcohol and Drug Abuse Patient Records regulations: The Federal rules restrict any use of the information to criminally investigate or prosecute any alcohol or drug abuse patient.[facility] the event this information is protected by the Federal Confidentiality of Alcohol and Drug Abuse Patient Records regulations: The Federal rules restrict any use of the information to criminally investigate or prosecute any alcohol or drug abuse patient.[facility] the event this information is protected by the Federal Confidentiality of Alcohol and Drug Abuse Patient Records regulations: The Federal rules restrict any use of the information to criminally investigate or prosecute any alcohol or drug abuse patient.[facility] the event this information is protected by the Federal Confidentiality of Alcohol and Drug Abuse Patient Records regulations: The Federal rules restrict any use of the information to criminally investigate or prosecute any alcohol or drug abuse patient.[facility] the event this information is protected by the Federal Confidentiality of Alcohol and Drug Abuse Patient Records regulations: The Federal rules restrict any use of the information to criminally investigate or prosecute any alcohol or drug abuse patient.[facility] the event this information is protected by the Federal Confidentiality of Alcohol and Drug Abuse Patient Records regulations: The Federal rules restrict any use of the information to criminally investigate or prosecute any alcohol or drug abuse patient.[facility] the event this information is protected by the Federal Confidentiality of Alcohol and Drug Abuse Patient Records regulations: The Federal rules restrict any use of the information to criminally investigate or prosecute any alcohol or drug abuse patient.[facility] the event this information is protected by the Federal Confidentiality of Alcohol and Drug Abuse Patient Records regulations: The Federal rules restrict any use of the information to criminally investigate or prosecute any alcohol or drug abuse patient.[facility] the event this information is protected by the Federal Confidentiality of Alcohol and Drug Abuse Patient Records regulations: The Federal rules restrict any use of the information to criminally investigate or prosecute any alcohol or drug abuse patient.[facility] the event this information is protected by the Federal Confidentiality of Alcohol and Drug Abuse Patient Records regulations: The Federal rules restrict any use of the information to criminally investigate or prosecute any alcohol or drug abuse patient.[facility] the event this information is protected by the Federal Confidentiality of Alcohol and Drug Abuse Patient Records regulations: The Federal rules restrict any use of the information to criminally investigate or prosecute any alcohol or drug abuse patient.[facility] the event this information is protected by the Federal Confidentiality of Alcohol and Drug Abuse Patient Records regulations: The Federal rules restrict any use of the information to criminally investigate or prosecute any alcohol or drug abuse patient.[facility] the event this information is protected by the Federal Confidentiality of Alcohol and Drug Abuse Patient Records regulations: The Federal rules restrict any use of the information to criminally investigate or prosecute any alcohol or drug abuse patient.[facility] the event this information is protected by the Federal Confidentiality of Alcohol and Drug Abuse Patient Records regulations: The Federal rules restrict any use of the information to criminally investigate or prosecute any alcohol or drug abuse patient.[facility] the event this information is protected by the Federal Confidentiality of Alcohol and Drug Abuse Patient Records regulations: The Federal rules restrict any use of the information to criminally investigate or prosecute any alcohol or drug abuse patient.[facility] the event this information is protected by the Federal Confidentiality of Alcohol and Drug Abuse Patient Records regulations: The Federal rules restrict any use of the information to criminally investigate or prosecute any alcohol or drug abuse patient.[facility] the event this information is protected by the Federal Confidentiality of Alcohol and Drug Abuse Patient Records regulations: The Federal rules restrict any use of the information to criminally investigate or prosecute any alcohol or drug abuse patient.[facility] the event this information is protected by the Federal Confidentiality of Alcohol and Drug Abuse Patient Records regulations: The Federal rules restrict any use of the information to criminally investigate or prosecute any alcohol or drug abuse patient.[facility] the event this information is protected by the Federal Confidentiality of Alcohol and Drug Abuse Patient Records regulations: The Federal rules restrict any use of the information to criminally investigate or prosecute any alcohol or drug abuse patient.[facility] the event this information is protected by the Federal Confidentiality of Alcohol and Drug Abuse Patient Records regulations: The Federal rules restrict any use of the information to criminally investigate or prosecute any alcohol or drug abuse patient.[facility] the event this information is protected by the Federal Confidentiality of Alcohol and Drug Abuse Patient Records regulations: The Federal rules restrict any use of the information to criminally investigate or prosecute any alcohol or drug abuse patient.[facility] the event this information is protected by the Federal Confidentiality of Alcohol and Drug Abuse Patient Records regulations: The Federal rules restrict any use of the information to criminally investigate or prosecute any alcohol or drug abuse patient.[facility] the event this information is protected by the Federal Confidentiality of Alcohol and Drug Abuse Patient Records regulations: The Federal rules restrict any use of the information to criminally investigate or prosecute any alcohol or drug abuse patient.[facility] the event this information is protected by the Federal Confidentiality of Alcohol and Drug Abuse Patient Records regulations: The Federal rules restrict any use of the information to criminally investigate or prosecute any alcohol or drug abuse patient.[facility] the event this information is protected by the Federal Confidentiality of Alcohol and Drug Abuse Patient Records regulations: The Federal rules restrict any use of the information to criminally investigate or prosecute any alcohol or drug abuse patient.[facility] the event this information is protected by the Federal Confidentiality of Alcohol and Drug Abuse Patient Records regulations: The Federal rules restrict any use of the information to criminally investigate or prosecute any alcohol or drug abuse patient.[facility] the event this information is protected by the Federal Confidentiality of Alcohol and Drug Abuse Patient Records regulations: The Federal rules restrict any use of the information to criminally investigate or prosecute any alcohol or drug abuse patient.[facility]In the event this information is protected by the Federal Confidentiality of Alcohol and Drug Abuse Patient Records regulations: The Federal rules restrict any use of the information to criminally investigate or prosecute any alcohol or drug abuse patient.[facility] the event this information is protected by the Federal Confidentiality of Alcohol and Drug Abuse Patient Records regulations: The Federal rules restrict any use of the information to criminally investigate or prosecute any alcohol or drug abuse patient.[facility] the event this information is protected by the Federal Confidentiality of Alcohol and Drug Abuse Patient Records regulations: The Federal rules restrict any use of the information to criminally investigate or prosecute any alcohol or drug abuse patient.[facility] the event this information is protected by the Federal Confidentiality of Alcohol and Drug Abuse Patient Records regulations: The Federal rules restrict any use of the information to criminally investigate or prosecute any alcohol or drug abuse patient.[facility] Hospital[facility] the event this information is protected by the Federal Confidentiality of Alcohol and Drug Abuse Patient Records regulations: The Federal rules restrict any use of the information to criminally investigate or prosecute any alcohol or drug abuse patient.[facility] Hospital[facility] the event this information is protected by the Federal Confidentiality of Alcohol and Drug Abuse Patient Records regulations: The Federal rules restrict any use of the information to criminally investigate or prosecute any alcohol or drug abuse patient.[facility] Hospital[facility] the event this information is protected by the Federal Confidentiality of Alcohol and Drug Abuse Patient Records regulations: The Federal rules restrict any use of the information to criminally investigate or prosecute any alcohol or drug abuse patient.[facility] Reason for Visit (unrecogniz ed section and content) Reason Onset Date Comments Refill Request 11/13/2021 Reason Onset Date Comments Refill Request 12/25/2021 Reason Comments Follow Up Specialty Diagnoses / Procedures Referred By Chato da silva Referred To Contact Urology Diagnoses Personal history of prostate cancer Procedures CONSULT TO UROLOGY NEW PATIENT VISIT LEVEL 5 Vilma Snow MD [address] [place] [address] Referral ID Status Reason Start Date Expiration Date V isits Requested Visits Authorized [id number] Closed PCP Requested Referral 08/09/2021 08/09/2022 1 [...] Request 03/02/2024 Reason Comments F/U 6 months Reason Onset Date Comments Refill Request 06/28/2024 Reason Onset Date Comments Refill Request 09/01/2024 Reason Onset Date Comments Refill Request 09/13/2024 Reason Comments Follow Up 6 month routine Reason Onset Date Comments Results 11/24/2024 Reason Comments Radiology US Specialty Diagnoses / Procedures Referred By Contac t Referred To Contact US IMAGING Diagnoses Elevated alkaline phosphatase level Procedures US ABD RIGHT UPPER QUADRANT US ABDOMINAL REAL TIME W/IMAGE LIMITED Vilma Snow MD [address] [place] [address] Phone: tel: fax: [place] [phone] Referral ID Status Reason Start Date Expiration Date V isits Requested Visits Authorized [id number] Closed Auto-Generate d Referral 11/24/2024 12/24/2025 1 1 Reason Onset Date Comments Refill Request 12/20/2024 Reason Comments New Patient Reason Onset Date Comments Refill Request 03/04/2025 Reason Onset Date Comments Population Health Navigation Outreach 04/14/2025 HCC SPRINT LIST Reason Comments Established Patient Care Teams (unrecognized sec tion and content) Access Control Officer Relationship Specialty Start Date End Date Vilma Snow MD [address] [place], [place] [id number] PCP - General Family Practice 12/06/16 Access Control Officer Relationship Specialty Start Date End Date Vilma Snow MD [address] [place], [place] [address] PCP - General Family Practice 12/06/16 Access Control Officer Relationship Specialty Start Date End Date Vilma Snow MD [address] [place] [address] PCP - General Family Medicine 12/06/16 Access Control Officer Relationship Specialty Start Date End Date Vilma Snow MD [address] [place], [place] [id number] [phone] PCP - General Family Medicine 12/06/16 Access Control Officer Relationship Specialty Start Date End Date Vilma Snow MD [address] [place] [place] [address] PCP - General Family Medicine 12/06/16 Access Control Officer Relationship Specialty Start Date End Date Vilma Snow MD [address] [place] [address] PCP - General Family Medicine 12/06/16 Access Control Officer Relationship Specialty Start Date End Date Vilma Snow MD [address] [place] [address] PCP - General Family Medicine 12/06/16 Access Control Officer Relationship Specialty Start Date End Date Vilma Snow MD [address] [place] [address] PCP - General Family Medicine 12/06/16 Access Control Officer Relationship Specialty Start Date End Date Vilma Snow MD [address] [place] [address] PCP - General Family Medicine 12/06/16 Access Control Officer Relationship Specialty Start Date End Date Vilma Snow MD [address] [place] [address] PCP - General Family Medicine 12/06/16 Access Control Officer Relationship Specialty Start Date End Date Vilma Snow MD [address] [place] [address] PCP - General Family Medicine 12/06/16 Access Control Officer Relationship Specialty Start Date End Date Vilma Snow MD [address] [place] [address] PCP - General Family Medicine 12/06/16 Access Control Officer Relationship Specialty Start Date End Date Vilma Snow MD [address] [place] [address] PCP - General Family Medicine 12/06/16 Access Control Officer Relationship Specialty Start Date End Date Vilma Snow MD [address] [place] [address] PCP - General Family Medicine 12/06/16 Access Control Officer Relationship Specialty Start Date End Date Vilma Snow MD [address] [place] [address] PCP - General Family Medicine 12/06/16 Access Control Officer Relationship Specialty Start Date End Date Vilma Snow MD [address] [place] [address] PCP - General Family Medicine 12/06/16 Access Control Officer Relationship Specialty Start Date End Date Vilma Snow MD [address] [place] [address] PCP - General Family Medicine 12/06/16 Access Control Officer Relationship Specialty Start Date End Date Vilma Snow MD [address] [place] [place] [address] PCP - General Family Medicine 12/06/16 Oliva Wong APRN.CNP [address] [place] [address] Table Worker Family Medicine 07/24/24 Access Control Officer Relationship Specialty Start Date End Date Vilma Snow MD [address] [place] [address] PCP - General Family Medicine 12/06/16 PodlogarOliva APRN.HOME VISITOR [address] [place] [address] [facility] 07/24/24 Access Control Officer Relationship Specialty Start Date End Date Vilma Snow MD [address] [place] [address] PCP - General Family Medicine 12/06/16 PodlogarOliva APRN.HOME VISITOR [address] [place] [address] Table Worker Family Medicine 07/24/24 Whit Hernandez APRN.HOME VISITOR [address] [place] [address] [facility] 11/08/24 Access Control Officer Relationship Specialty Start Date End Date Vilma Snow MD [address] [place] [address] PCP - General Family Medicine 12/06/16 PodlogarOliva DIRECTORY CARRIER.HOME VISITOR [address] [place] [address] [facility] Medicine 07/24/24 Whit Hernandez DIRECTORY CARRIER.HOME VISITOR [address] [place] [address] [facility] Medicine 11/08/24 Access Control Officer Relationship Specialty Start Date End Date Vilma Snow MD [address] [place] [address] PCP - General Family Medicine 12/06/16 Podlogar, Oliva, DIRECTORY CARRIER.HOME VISITOR [address] [place] [address] Table Worker Family Medicine 07/24/24 Whit Hernandez APRN.HOME VISITOR [address] [place], [place] [address] [phone] Table Worker Family Medicine 11/08/24 Access Control Officer Relationship Specialty Start Date End Date Vilma Snow MD [address] [place] [address] PCP - General Family Medicine 12/06/16 Podlogar, Oliva DIRECTORY CARRIER.HOME VISITOR [address] [place] [address] Table Worker Family Medicine 07/24/24 Whit Hernandez APRN.HOME VISITOR [address] [place] [address] [facility] Medicine 11/08/24 Access Control Officer Relationship Specialty Start Date End Date Vilma Snow MD [address] [place] [address] PCP - General Family Medicine 12/06/16 Podlogar, Oliva DIRECTORY CARRIER.HOME VISITOR [address] [place] [address] Table Worker Family Medicine 07/24/24 Whit Hernandez DIRECTORY CARRIER.HOME VISITOR [address] [place] [address] [facility] Medicine 01/27/25 Access Control Officer Relationship Specialty Start Date End Date Vilma Snow MD [address] [place] [place] [address] PCP - General Family Medicine 12/06/16 PodlogarOliva APRN.HOME VISITOR [address] [place] [address] Table Worker Family Medicine 07/24/24 Whit Hernandez APRN.HOME VISITOR [address] [place] [place] [address] Table Worker Family Medicine 01/27/25 Access Control Officer Relationship Specialty Start Date End Date Vilma Snow MD [address] [place] [place] [address] PCP - General Family Medicine 12/06/16 PodlogarOliva APRN.HOME VISITOR [address] [place] [address] Table Worker Family Medicine 07/24/24 Whit Hernandez APRN.HOME VISITOR [address] [place] [place] [address] Table Worker Family Medicine 01/27/25 Access Control Officer Relationship Specialty Start Date End Date Vilma Snow MD [address] [place] [place] [address] PCP - General Family Medicine 12/06/16 PodlogarOliva APRN.HOME VISITOR [address] [place] [address] Table Worker Family Medicine 07/24/24 Whit Hernandez APRN.HOME VISITOR [address] [place] [address] Table Worker Family Medicine 01/27/25 Access Control Officer Relationship Specialty Start Date End Date Vilma Snow MD [address] [place] [address] PCP - General Family Medicine 12/06/16 PodlogarOliva APRN.HOME VISITOR [address] [place] [address] Table Worker Family Medicine 07/24/24 Whit Hernandez APRN.HOME VISITOR [address] [place] [address] Table Worker Family Medicine 01/27/25 Access Control Officer Relationship Specialty Start Date End Date Vilma nSow MD [address] [place] [address] PCP - General Family Medicine 12/06/16 PodlogarOliva, DIRECTORY CARRIER.HOME VISITOR [address] [place] [address] Table Worker Family Medicine 07/24/24 Whit Hernandez DIRECTORY CARRIER.HOME VISITOR [address] [place] [address] Table Worker Family Medicine 01/27/25 Stephane Nuñez MD [address] [place] [address] Hematology/Oncology 03/30/25 Access Control Officer Relationship Specialty Start Date End Date Vilma Snow MD [address] [place] [address] PCP - General Family Medicine 12/06/16 PodlogarOliva APRN.HOME VISITOR [address] [place] [address] [facility] 07/24/24 Whit Hernandez APRN.HOME VISITOR [address] [place] [address] [facility] 01/27/25 Stephane Nuñez MD [address] [facility] [place] [address] Hematology/Oncology 03/30/25 Access Control Officer Relationship Specialty Start Date End Date Vilma Snow MD [address] [place] [address] PCP - General Family Medicine 12/06/16 PodlogarOliva APRN.HOME VISITOR [address] [place] [address] [facility] 07/24/24 Whit Hernandez APRN.HOME VISITOR [address] [place] [address] [facility] 01/27/25 Stephane Nuñez MD [address] [place] [address] Hematology/Oncology 03/30/25 FOR RECORDS PERTAINING TO PATIENTS WHO ARE [...] BE BASED ON THE PRIMARY CLINICAL RECORDS. [facility]. provides no warranty or guarantee of the accuracy or completeness of information in this document.
== END 2025-04-21 23:59 | disposition home or self-care (01) ==
LOC: MEDOUTP 12:17
PROVIDERS: PCP Family Medicine; Referring Provider Nurse Practitioner Acute Care; Visit Provider Nurse Practitioner Acute Care
DX: J45.50 Severe persistent asthma, uncomplicated (principal)
CPT/HCPCS: 96372; J2182

== ENCOUNTER 2025-05-19 12:18 | Outpatient (CLI) | payer MEDICARE, SELFPAY ==
[2017-05-16 09:58] VITALS: BMI 30.9
[2025-05-19 12:39] VITALS: BP 121/66; PULSE 65; RESP 16; TEMP 36.2; O2SAT 99; BMI 29.0
== END 2025-05-19 23:59 | disposition home or self-care (01) ==
LOC: MEDOUTP 12:19
PROVIDERS: PCP Family Medicine; Referring Provider Nurse Practitioner Acute Care; Visit Provider Nurse Practitioner Acute Care
DX: J45.50 Severe persistent asthma, uncomplicated (principal)
CPT/HCPCS: 96372; J2182

== ENCOUNTER → 2025-05-20 | Outpatient (CLI) | payer MEDICARE, SELFPAY ==
[2017-05-16 09:58] VITALS: BMI 30.9
== END | disposition home or self-care (01) ==
LOC: PSN 10:23
PROVIDERS: PCP Family Medicine; Referring Provider Nurse Practitioner Acute Care; Visit Provider Nurse Practitioner Acute Care
DX: R06.09 Other forms of dyspnea (principal)
CPT/HCPCS: 94060; 94726; 94729

== ENCOUNTER → 2025-05-26 | Outpatient (CLI) | payer MEDICARE, SELFPAY ==
[2017-05-16 09:58] VITALS: BMI 30.9
[2025-05-26 12:25] VITALS: PULSE 102; PULSE 113; PULSE 120; PULSE 128; PULSE 140; PULSE 81; PULSE 82; O2SAT 100; O2SAT 98
== END | disposition home or self-care (01) ==
PROVIDERS: PCP Family Medicine; Referring Provider Nurse Practitioner Acute Care; Visit Provider Nurse Practitioner Acute Care
DX: J90 Pleural effusion, not elsewhere classified (principal); R06.09 Other forms of dyspnea
CPT/HCPCS: 71250; 94618

== ENCOUNTER 2025-06-20 12:49 | Outpatient (CLI) | payer MEDICARE, SELFPAY ==
[2017-05-16 09:58] VITALS: BMI 30.9
[2025-06-20 12:57] VITALS: BP 132/79; PULSE 65; RESP 16; TEMP 36.3; O2SAT 98; BMI 28.3
== END 2025-06-20 23:59 | disposition home or self-care (01) ==
LOC: MEDOUTP 12:49
PROVIDERS: PCP Family Medicine; Referring Provider Nurse Practitioner Acute Care; Visit Provider Nurse Practitioner Acute Care
DX: J45.50 Severe persistent asthma, uncomplicated (principal)
CPT/HCPCS: 96372; J2182

== ENCOUNTER 2025-07-18 12:51 | Outpatient (CLI) | payer MEDICARE, SELFPAY ==
[2017-05-16 09:58] VITALS: BMI 30.9
[2025-07-18 13:05] VITALS: BP 115/72; PULSE 98; RESP 18; TEMP 36.6; O2SAT 96; BMI 28.3
== END 2025-07-18 23:59 | disposition home or self-care (01) ==
LOC: MEDOUTP 12:51
PROVIDERS: PCP Family Medicine; Referring Provider Nurse Practitioner Acute Care; Visit Provider Nurse Practitioner Acute Care
DX: J45.50 Severe persistent asthma, uncomplicated (principal)
CPT/HCPCS: 96372; J2182